=== PATIENT | male | born 1935 | race Caucasian/White ===

== ENCOUNTER 2017-03-28 20:57 | Emergency (ER) | payer OTHER ==
[~2017-03-28] VITALS: Ht 172.7 cm; Wt 77.0 kg
[~2017-03-28 20:57] MED LIST: ASPEC81 PO; B-COTAB18 PO; CHOL1CAP57 PO; CHONCAP PO; COENCAP8 PEG; FLUT0.15 NAE; HYDR12.55 PO; LISI-729 PO; LORA10TA5 PO; LPR25 PO; MELA3CAP PO; OMEG10002 PO; OMEP20CA9 PO; ROSU20TA PO; TRIA0.1C20 TOP; WARF5TAB90 PO
[2017-03-28 21:03] VITALS: TEMP 36.5; Ht 172.7 cm; Wt 77.0 kg
[2017-03-28] MEDS ORDERED: REDCAP2 PO (21:13)
[2017-03-28] MEDS ORDERED: SILVER NITR/POTASSIUM NITRATE 10 APPLICATOR PACK ONE (21:48)
[2017-03-28] MEDS ORDERED: OXYMETAZOLINE HCL 0.05% NA SPR 15 ML BTL ONE ×2 (21:48)
[2017-03-28 22:02] LABS: BASO % 0.4 %; BASO ABS # 0.03 K/uL (0-0.2); COMPLETE YES; EOS % 3.2 %; HEMATOCRIT 39.6 % (42-52); IG% 0.3 %; LYMPH % 7.9 %; LYMPH ABS # 0.57 K/uL (1.2-3.4); MEAN CELL VOLUME 86.3 fL (80-100); MEAN CORPUSCULAR HEMOGLOBIN 28.5 pg (25-34); MEAN CORPUSCULAR HGB CONC 33.1 g/dl (32-36); MEAN PLATELET VOLUME 9.9 fL (7.4-10.4); MONO % 15.4 %; NEUT % 72.8 %; PLATELET COUNT 194 K/uL (130-400); RED BLOOD COUNT 4.59 M/uL (4.7-6.1)
[2017-03-28 22:15] LABS: INR 2.4 (0.9-1.1); PARTIAL THROMBOPLASTIN RATIO 1.3; PROTHROMBIN TIME (PATIENT) 26.2 SECONDS (9.0-12.0)
[2017-03-28 22:20] LABS: CALCIUM 9.2 mg/dl (8.5-10.1); CREATININE 0.62 mg/dl (0.60-1.40); POTASSIUM 3.9 mmol/L (3.5-5.1)
[2017-03-28] MEDS ORDERED: ASPI81TA28 PO (22:33)
[2017-03-28] MEDS ORDERED: METO25TA56 PO (22:33)
[2017-03-28] MEDS ORDERED: TRMCR130WC TOP (22:33)
[2017-03-28] MEDS ORDERED: COEN200C PO (22:44)
[2017-03-28] MEDS ORDERED: LISI-461 PO (22:44)
[2017-03-28] MEDS ORDERED: WARF7.5T PO (22:44)
[2017-03-28] MEDS ORDERED: ASCO10003 PO (22:44)
[2017-03-28] MEDS ORDERED: FLUT0.15 NAE (22:44)
[2017-03-28 23:50] VITALS: BP 144/76; PULSE 84; O2SAT 98
--- NOTE | 2017-03-29 01:59 | EMERGENCY ROOM VISIT NOTE ---
History Report prepared by Bryson: Vanesa Burgess Under the Supervision of: Dr. Christiano Bennett M.D. First contact with patient: 21:19 Chief Complaint: NOSE BLEED (MINOR) Stated Complaint: BLOODY NOSE History of Present Illness The patient is an 81 year old male who presents to the Emergency Room with complaints of an episode of a severe nose bleed starting three hours ago. The patient states that he has been having nosebleeds recently. He states that he went to his PCP this morning for the nosebleed. He states it stopped before he got there and they told him how to handle it if it happened again. He reports that he followed their instructions this evening with no relief. The patient notes he is on Coumadin for an artificial valve and was at a 3.0 9 days ago. The patient denies chest pain and shortness of breath. Source of History: patient Onset: three hours ago Position: nose Symptom Intensity: severe Quality: other (bleeding) Timing: other (episode) Associated Symptoms: No chest pain, No SOB Review of Systems See HPI for pertinent positives and negatives. A total of ten systems were reviewed and were otherwise negative. 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 Family History No pertinent family history Social History Smoking Status: Never Smoker Marital Status: Housing Status: lives with significant other Occupation Status: retired Current/Historical Medications Scheduled Ascorbic Acid (Vitamin C), 1 TAB PO DAILY Aspirin (Aspirin Ec), 81 MG PO DAILY Coenzyme Q10 (Ubidecarenone) (Coenzyme Q-10), 200 MG PO DAILY Fluticasone Propionate (Nasal) (Flonase Allergy Relief), 2 SPRAYS ISAIAH DAILY Lisinopril (Zestril), 10 MG PO DAILY Metoprolol Tartrate (Lopressor) (Lopressor), 25 MG PO DAILY Red Yeast Rice Extract (Red Yeast Rice), 600 MG PO Q2D Rosuvastatin Calcium (Crestor), 20 MG PO DAILY Warfarin Sodium (Coumadin), 5 MG PO 6XWK Warfarin Sodium (Coumadin), 7.5 MG PO MON Scheduled PRN Omeprazole (Prilosec), 20 MG PO DAILY PRN for Indigestion Triamcinolone Acet (Aristocort 0.1%), 1 APPLN TOP BID PRN for rash Allergies Coded Allergies: No Known Allergies (Unverified , 12/06/14) Physical Exam Vital Signs Date Time Temp Pulse Resp B/P (MAP) Pulse Ox O2 Delivery O2 Flow Rate FiO2 03/28/17 23:50 84 20 144/76 98 03/28/17 22:39 68 20 152/92 98 Room Air 03/28/17 21:03 36.5 83 20 177/92 96 Room Air Physical Exam GENERAL: Awake, alert, well-appearing, in no distress HENT: Normocephalic, atraumatic. Oropharynx unremarkable. Anterior right nasal septum. Visible blood vessel with active bleeding. EYES: Normal conjunctiva. Sclera non-icteric. NECK: Supple. No nuchal rigidity. FROM. No JVD. RESPIRATORY: Clear to auscultation. CARDIAC: Regular rate, normal rhythm. Extremities warm and well perfused. Pulses equal. ABDOMEN: Soft, non-distended. No tenderness to palpation. No rebound or guarding. No masses. RECTAL: Deferred. MUSCULOSKELETAL: Chest examination reveals no tenderness. The back is symmetrical on inspection without obvious abnormality. There is no CVA tenderness to palpation. No joint edema. LOWER EXTREMITIES: Calves are equal size bilaterally and non-tender. No edema. No discoloration. NEURO: Normal sensorium. No sensory or motor deficits noted. SKIN: No rash or jaundice noted. Medical Decision & Procedures Laboratory Results 03/28/17 21:40 Red Blood Count 4.59, Mean Corpuscular Volume 86.3, Mean Corpuscular Hemoglobin 28.5, Mean Corpuscular Hemoglobin Concent 33.1, Mean Platelet Volume 9.9, Neutrophils (%) (Auto) 72.8, Lymphocytes (%) (Auto) 7.9, Monocytes (%) (Auto) 15.4, Eosinophils (%) (Auto) 3.2, Basophils (%) (Auto) 0.4, Neutrophils # (Auto ) 5.24, Lymphocytes # (Auto) 0.57, Monocytes # (Auto) 1.11, Eosinophils # (Auto ) 0.23, Basophils # (Auto) 0.03 03/28/17 21:40 Test 03/28/17 21:40 White Blood Count 7.20 K/uL (4.8-10.8) Red Blood Count 4.59 M/uL (4.7-6.1) Hemoglobin 13.1 g/dL (14.0-18.0) Hematocrit 39.6 % (42-52) Mean Corpuscular Volume 86.3 fL (80-100) Mean Corpuscular Hemoglobin 28.5 pg (25-34) Mean Corpuscular Hemoglobin Concent 33.1 g/dl (32-36) Platelet Count 194 K/uL (130-400) Mean Platelet Volume 9.9 fL (7.4-10.4) Neutrophils (%) (Auto) 72.8 % Lymphocytes (%) (Auto) 7.9 % Monocytes (%) (Auto) 15.4 % Eosinophils (%) (Auto) 3.2 % Basophils (%) (Auto) 0.4 % Neutrophils # (Auto) 5.24 K/uL (1.4-6.5) Lymphocytes # (Auto) 0.57 K/uL (1.2-3.4) Monocytes # (Auto) 1.11 K/uL (0.11-0.59) Eosinophils # (Auto) 0.23 K/uL (0-0.5) Basophils # (Auto) 0.03 K/uL (0-0.2) RDW Standard Deviation 42.8 fL (36.4-46.3) RDW Coefficient of Variation 13.7 % (11.5-14.5) Immature Granulocyte % (Auto) 0.3 % Immature Granulocyte # (Auto) 0.02 K/uL (0.00-0.02) Prothrombin Time 26.2 SECONDS (9.0-12.0) Prothromb Time International Ratio 2.4 (0.9-1.1) Activated Partial Thromboplast Time 32.7 SECONDS (21.0-31.0) Partial Thromboplastin Ratio 1.3 Anion Gap 7.0 mmol/L (3-11) Est Creatinine Clear Calc Drug Dose 91.9 ml/min Estimated GFR () 108.6 Estimated GFR (Non- 93.7 BUN/Creatinine Ratio 21.0 (10-20) Calcium Level 9.2 mg/dl (8.5-10.1) Laboratory results reviewed by ne Procedure Anterior Nasal Cauterization Suction was used to clear out the right nasal passage. The bleeding clot was identified and Afrin was placed. Silver Nitrate was used to cauterize the vessel. Surgicel was applied. Patient did well. ED Course 2140: The patient was evaluated in room C8. A complete history and physical exam was performed. 2147: Ordered Afrin 0.05% Nasal [place] 2 sprays .ROUTE, Silver Nitrate/ Potassium Nitrate 1 pkt .ROUTE. 2305: I reevaluated the patient. Discussed results and discharge instructions: He verbalized understanding and agreement. The patient is ready for discharge. Medical Decision Prior records/ancillary studies reviewed. Triage Nursing notes reviewed and agree them. Additional history obtained from family. The patient's history was concerning for epistaxis. Differential diagnosis: Etiologies such as spontaneous bleed, coagulopathy, traumatic injury, fracture, septal hematoma, posterior epistaxis as well as other pathologies were entertained. Physical examination findings: As above. Anterior bleeding source. ER treatment provided: Direct pressure and then nasal suctioning. Intranasal Afrin Silver nitrate cautery Fribrillar hemostatic cellulose applied On reassessment the patient felt better. No additional bleeding. Diagnostics interpreted by me: The labs revealed a mild anemia on CBC. INR 2.4. Chemical panel unremarkable. By the evaluation outlined above emergent etiologies such as coagulopathy, traumatic injury, fracture, septal hematoma, posterior epistaxis, as well as others were deemed relatively unlikely. The patient was informed about the findings as listed above. All questions were answered and he was very pleased with the treatment. Return instructions were outlined and the patient was discharged in stable condition. Outpatient prescription management: No change Referral: The patient was referred to ENT and PCP. Medication Reconcilliation Current Medication List: was personally reviewed by me Blood Pressure Screening Patient's blood pressure: Elevated blood pressure Blood pressure disposition: Elevated BP felt to be situational Impression Primary Impression: Anterior epistaxis Scribe Attestation The scribe's documentation has been prepared under my direction and personally reviewed by me in its entirety. I confirm that the note above accurately reflects all work, treatment, procedures, and medical decision making performed by me. Departure Information Dispostion Home / Self-Care Referrals Anthony Holbrook M.D. (PCP) Forms HOME CARE DOCUMENTATION FORM, IMPORTANT VISIT INFORMATION, WORK / SCHOOL INSTRUCTIONS Patient Instructions My [facility] Additional Instructions EPISTAXIS (NOSE BLEED) INSTRUCTIONS: Avoid scratching, rubbing, picking, or blowing your nose. The tumbler drier operator your nasal passages the more likely they are to bleed. The following two products are available [id number] at most drug stores/pharmacies. Dixie [place] nasal spray or similar generic saline spray to keep the nose moist 3 to 4 times a day. Apply Evans gel 2-3 times daily to the nostrils to keep them moist. If bleeding recurs apply 2 sprays of Afrin and direct pressure for an uninterrupted 20 minutes with the nasal clip. On and off pressure is much less effective because it will disturb the clots that are forming. If the bleeding is still a problem after 20 minutes or is so heavy despite the pressure return to the emergency department. Continue current medications. For ENT([id number]) follow up call this week the [facility] ENT office at [phone] for an appointment. Tell the multi needle machine operator you were referred from the ER. Follow-up with your primary care physician in 2 to 3 days for a recheck of your current condition.
== END 2017-03-28 23:51 | disposition home or self-care (01) ==
LOC: C.EDB 20:58 → C.EDC 23:51
DX: R04.0 Epistaxis (principal); I10 Essential (primary) hypertension; Z95.1 Presence of aortocoronary bypass graft; Z79.01 Long term (current) use of anticoagulants; Z79.82 Long term (current) use of aspirin; Z79.899 Other long term (current) drug therapy

== ENCOUNTER 2017-10-13 12:48 | Observation (INO) | payer OTHER ==
[~2017-10-13] VITALS: Ht 175.3 cm; Wt 73.8 kg
[~2017-10-13 12:48] MED LIST changes: +ASCO10003 PO; -ASPEC81 PO; +ASPI81TA28 PO; -B-COTAB18 PO; -CHOL1CAP57 PO; -CHONCAP PO; +COEN200C PO; -COENCAP8 PEG; -HYDR12.55 PO; +LISI-461 PO; -LISI-729 PO; -LORA10TA5 PO; -LPR25 PO; -MELA3CAP PO; +METO25TA56 PO; -OMEG10002 PO; +REDCAP2 PO; -TRIA0.1C20 TOP; +TRMCR130WC TOP; +WARF7.5T PO
[2017-10-13] MEDS ORDERED: OPTIRAY 320 IV PRN (13:45)
--- NOTE | 2017-10-13 13:51 | EMERGENCY ROOM VISIT NOTE ---
ED Visit Note First contact with patient: 13:14 CHIEF COMPLAINT: Right rib pain, head injury, mechanical fall HISTORY OF PRESENT ILLNESS: This 82-year-old male patient presents to the emergency department, ambulatory, complaining of pain in the right ribs after suffering a mechanical fall at approximately 5:00 last evening. The patient states he was walking in his kitchen from the stove to the refrigerator when his foot got caught. He states he fell and believes he hit the right side of his ribs on the door handle of the refrigerator. He does admit to hitting his head. He states he was having difficulty sleeping last night due to the pain, and because he is on Coumadin, he wanted to come and be evaluated. There is increased pain with deep breathing or coughing. Attempting to sit up from a lying position is painful. Denies shortness of breath or coughing up blood. The patient rates the pain as sharp and 7/10. The patient has taken Tylenol with mild relief of the pain. No previous fractures to the ribs. The patient denies any other injury. The patient denies any abdominal pain, nausea, or vomiting. The patient denies any loss of consciousness, nausea, vomiting, neck pain, confusion, dizziness, visual disturbances, or other significant head injury symptoms. REVIEW OF SYSTEMS: A 6 system review of systems was completed with positives and pertinent negatives listed in the HPI. ALLERGIES: None PMH: Mechanical aortic valve, rheumatic fever, neuropathy SOCIAL HISTORY: The patient lives locally with family. He denies drug, alcohol , tobacco use. PHYSICAL EXAM: VITALS: Vitals are noted on the nurse's note and reviewed by myself. Vital signs stable. GENERAL: This is an 82-year-old white male, in no acute distress, nondiaphoretic , well-developed well-nourished. NEURO: The patient is alert, oriented to person place and time, and coherent. Normal mini mental status exam. HEAD: Normocephalic, atraumatic. Mild tenderness on the superior/anterior aspect of the scalp, but no obvious bruising or ecchymosis. EYES: Pupils are equal round and reactive to light and accommodation. EOMs are full and optic discs and fundi are normal. There is no swelling or discoloration of the tissue surrounding the eyes. EARS: External auditory canals clear without blood. NOSE: Patent without tenderness. No septal hematoma. FACE: No facial tenderness. NECK: Supple. There is no cervical spine tenderness. The patient does not have tenderness with movement of the neck. LUNGS: Clear to auscultation and breath sounds equal, no wheezes, rales, or rhonchi. HEART: Heart sounds are regular without murmurs, ectopy, gallop, or rub. CHEST: The right chest wall is tender to palpation over the 6-10 ribs but there is no fracture crepitus and no ecchymosis. There is no tachypnea or dyspnea. ABDOMEN: Positive bowel sounds x 4. Normal tympanic percussion. There is tenderness of the right upper quadrant on palpation. There is also positive CVA tenderness on the right. Soft, without masses or organomegaly. No guarding or rebound tenderness. NEURO: Patient was alert and oriented to person place and time. CT OF THE HEAD WITHOUT CONTRAST CLINICAL HISTORY: trauma, head injury, on coumadin COMPARISON STUDY: Head CT and MRI of the brain December 06, 2014. TECHNIQUE: Helical axial images of the head were obtained without IV contrast. Automated exposure control was utilized for the study. A dose lowering technique was utilized adhering to the principles of ALARA. FINDINGS: No acute intracranial hemorrhage, midline shift or mass effect is present. Ventricular system is stable. Basilar cisterns are patent. There are no extra-axial collections. Extensive white matter hypodensity suggests small vessel disease. 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 There is an age indeterminate 1.8 cm infarct within left cerebellar hemisphere. There are no calvarial fractures. Left sphenoid sinus air-fluid levels noted. IMPRESSION: 1. No acute intracranial hemorrhage. 2. Age indeterminate 1.8 cm infarct within left cerebellar hemisphere. 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 3. No calvarial fracture. Electronically signed by: Lucas Li M.D. 10/13/2017 3:01 PM Dictated Date/Time: 10/13/2017 2:[address] OF THE CHEST WITH IV CONTRAST CLINICAL HISTORY: trauma, right chest wall pain, increased pain with breathing COMPARISON STUDY: Chest radiograph December 06, 2014. TECHNIQUE: Following IV administration of 116 mL of Optiray-320, helical axial images of the chest were obtained. Sagittal and coronal reconstructions were viewed as well as maximal intensity projections on an independent 3-D workstation. A dose lowering technique was utilized adhering to the principles of ALARA. FINDINGS: There is no evidence for traumatic injury to the thoracic aorta. There is moderate dilatation of the ascending aorta that measures 4.7 cm at the level the main pulmonary artery. There is extensive coronary artery calcification. There is no pericardial effusion. There are no enlarged thoracic lymph nodes. There is a tiny hiatal hernia. A small right hemothorax is noted with a trace right pneumothorax. There is an acute moderately displaced posterior right 10th rib fracture with several locules of adjacent chest wall gas. There is also a mildly displaced fracture of the posterior right 10th rib. There are nondisplaced fractures of the posterior and posterior lateral right ninth ribs as well as the posterior 11th and 12th ribs. No acute thoracic spine fracture is identified. There is no left pneumothorax. The patient is status post median sternotomy. The abdomen and pelvis will be reported separately. Groundglass opacities reflect atelectasis. IMPRESSION: 1. Small right hemothorax and trace right pneumothorax. Moderately displaced posterolateral right 10th rib fracture with additional nondisplaced fractures of the right 9th, 10th and 11th ribs, as described above. 2. No evidence of traumatic injury to the thoracic aorta. 3. Moderate dilatation of the ascending aorta, measuring 4.7 cm. No dissection. 4. Cholelithiasis. Electronically signed by: Lucas Li M.D. 10/13/2017 3:11 PM Dictated Date/Time: 10/13/2017 3:[address] OF THE ABDOMEN AND PELVIS WITH CONTRAST CLINICAL HISTORY: trauma, RUQ pain/R flank pain COMPARISON STUDY: None. TECHNIQUE: Following IV administration of mL of Optiray-320, axial images of the abdomen and pelvis were obtained from the lung bases to the proximal femurs. Images were reviewed in the axial, sagittal, and coronal planes. IV contrast was administered without complication. A dose lowering technique was utilized adhering to the principles of ALARA. CT DOSE: 1662.52 mGy.cm FINDINGS: The chest will be reported separate. There is a small right pleural effusion which favors a hemothorax. Right-sided rib fractures are better depicted on the chest CT. Please see that report for description. There is no evidence for traumatic injury to the liver, spleen, adrenal glands, kidneys or pancreas. There are gallstones within the gallbladder. 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 However wall thickness of small and large bowel are normal. There is no hemoperitoneum or pneumoperitoneum. There is sigmoid diverticulosis without evidence for acute diverticulitis. No acute lumbar spine or pelvic fracture is identified. IMPRESSION: 1. No acute traumatic findings within the abdomen or pelvis. 2. Multiple right-sided rib fractures, a small right hemothorax and trace right pneumothorax which are better depicted on the chest CT. Please see that report for further description. 3. Cholelithiasis. 4. 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 Electronically signed by: Lcuas Li M.D. 10/13/2017 3:19 PM Dictated Date/Time: 10/13/2017 3:11 PM EMERGENCY DEPARTMENT COURSE: The patient was seen and evaluated as above. He has been stable throughout his visit to the emergency department here today with no hypoxia or tachycardia noted on vital signs. The patient denies any dyspnea, and appears very comfortable. CT scans performed due to history and patient on coumadin. Labs drawn and reviewed. CT scan reviewed by myself and radiologist as above. INR is subtheraputic for mechanical valve at 1.7. Pt. is mildly anemic with Hgb 12.8 and Hct 38.2. I contacted Dr. Garcia regarding the patient condition. He was willing to see the patient outpatient or inpatient if the medicine team is willing to admit. The patient was seen by Dr. Veliz. We did agree that admitting the patient at least overnight would be reasonable given the patient's age, medications, and risk factors. The patient [place] [facility] [place] and Dr. Garcia (thoracic surgery) will consult in the morning. The patient is agreeable to the plan of care and all questions answered to his and his son's satisfaction. Please see hospitalist dictation for ongoing management and care. I did discuss the finding of cystic pancreatic body lesion noted on CT scan with the patient at bedside. I did encourage him to follow-up outpatient with his primary care provider for further workup and management of this finding. I attest that I have personally reviewed the patient's current medication list. Patient was found to have normal blood pressure on screening and does not require follow-up. Differential diagnosis includes contusion, rib fracture, pulmonary contusion, hemothorax, pneumothorax, pleural effusion, flail chest, pneumonia, closed head injury, ICH, skull fracture, malignancy, and others DIAGNOSIS: Multiple rib fractures, hemothorax, pneumothorax Problem List Medical Problems: (1) HTN (hypertension) Status: Chronic Surgical Problems: (1) Aortic valve replaced Status: Chronic (2) Mitral valve replaced Status: Chronic (3) S/P CABG x 5 Status: Resolved Current/Historical Medications Scheduled Ascorbic Acid (Vitamin C), 1 TAB PO DAILY Aspirin (Aspirin Ec), 81 MG PO DAILY Coenzyme Q10 (Ubidecarenone) (Coenzyme Q-10), 200 MG PO DAILY Fexofenadine Hcl (Jackie Allergy), 1 TAB PO DAILY Lisinopril (Zestril), 10 MG PO DAILY Metoprolol Tartrate (Lopressor) (Lopressor), 25 MG PO DAILY Red Yeast Rice Extract (Red Yeast Rice), 600 MG PO Q2D Rosuvastatin Calcium (Crestor), 20 MG PO DAILY Warfarin Sodium (Coumadin), 5 MG PO 6XWK Warfarin Sodium (Coumadin), 7.5 MG PO MON Scheduled PRN Fluticasone Propionate (Nasal) (Flonase Allergy Relief), 2 SPRAYS ISAIAH DAILY PRN for Allergic Reaction Omeprazole (Prilosec), 20 MG PO DAILY PRN for Indigestion Allergies Coded Allergies: No Known Allergies (Unverified , 10/13/17) Vital Signs Date Time Temp Pulse Resp B/P (MAP) Pulse Ox O2 Delivery O2 Flow Rate FiO2 10/13/17 16:34 97 Room Air 10/13/17 15:01 78 16 97 Room Air 10/13/17 13:01 36.2 56 20 145/87 97 Room Air Laboratory Results 10/13/17 13:45 10/13/17 13:45 Test 10/13/17 13:45 10/13/17 16:49 Red Blood Count 4.51 M/uL (4.7-6.1) Mean Corpuscular Volume 84.7 fL (80-100) Mean Corpuscular Hemoglobin 28.4 pg (25-34) Mean Corpuscular Hemoglobin Concent 33.5 g/dl (32-36) RDW Standard Deviation 42.8 fL (36.4-46.3) RDW Coefficient of Variation 13.9 % (11.5-14.5) Mean Platelet Volume 9.3 fL (7.4-10.4) Prothrombin Time 17.3 SECONDS (9.0-12.0) Prothromb Time International Ratio 1.7 (0.9-1.1) Activated Partial Thromboplast Time 29.5 SECONDS (21.0-31.0) Partial Thromboplastin Ratio 1.1 Anion Gap 5.0 mmol/L (3-11) Est Creatinine Clear Calc Drug Dose 81.6 ml/min Estimated GFR () 102.0 Estimated GFR (Non- 88.0 BUN/Creatinine Ratio 21.2 (10-20) Calcium Level 9.0 mg/dl (8.5-10.1) Departure Information Impression Primary Impression: Multiple fractures of rib involving four or more ribs Additional Impressions: Hemothorax Pneumothorax Pancreatic abnormality Fall Dispostion Admitted as an inpatient Condition GOOD Referrals Anthony Holbrook M.D. (PCP) Patient Instructions My [facility] Problem Qualifiers Additional Impressions: Pneumothorax Pneumothorax type: traumatic Encounter type: initial encounter Qualified Codes: S27.0XXA - Traumatic pneumothorax, initial encounter Fall Encounter type: initial encounter Qualified Codes: W19.XXXA - Unspecified fall, initial encounter
[2017-10-13 14:01] LABS: HEMATOCRIT 38.2 % (42-52); HEMOGLOBIN 12.8 g/dL (14.0-18.0); MEAN CELL VOLUME 84.7 fL (80-100); MEAN CORPUSCULAR HEMOGLOBIN 28.4 pg (25-34); MEAN CORPUSCULAR HGB CONC 33.5 g/dl (32-36); MEAN PLATELET VOLUME 9.3 fL (7.4-10.4); PLATELET COUNT 170 K/uL (130-400); RED CELL DISTRIBUTION WIDTH CV 13.9 % (11.5-14.5); RED CELL DISTRIBUTION WIDTH SD 42.8 fL (36.4-46.3); WHITE BLOOD COUNT 10.66 K/uL (4.8-10.8)
[2017-10-13 14:21] LABS: CREATININE 0.71 mg/dl (0.60-1.40); INR 1.7 (0.9-1.1); POTASSIUM 4.2 mmol/L (3.5-5.1); PTT PATIENT 29.5 SECONDS (21.0-31.0)
[2017-10-13] MEDS ORDERED: FEXO1TAB49 PO (14:32)
--- NOTE | 2017-10-13 15:02 | DIAGNOSTIC IMAGING REPORT ---
CT OF THE HEAD WITHOUT CONTRAST CLINICAL HISTORY: trauma, head injury, on coumadin COMPARISON STUDY: Head CT and MRI of the brain December 06, 2014. TECHNIQUE: Helical axial images of the head were obtained without IV contrast. Automated exposure control was utilized for the study. A dose lowering technique was utilized adhering to the principles of ALARA. FINDINGS: No acute intracranial hemorrhage, midline shift or mass effect is present. Ventricular system is stable. Basilar cisterns are patent. There are no extra-axial collections. Extensive white matter hypodensity suggests small vessel disease. 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 There is an age indeterminate 1.8 cm infarct within left cerebellar hemisphere. There are no calvarial fractures. Left sphenoid sinus air-fluid levels noted. IMPRESSION: 1. No acute intracranial hemorrhage. 2. Age indeterminate 1.8 cm infarct within left cerebellar hemisphere. 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 3. No calvarial fracture. Electronically signed by: Lucas Li M.D. 10/13/2017 3:01 PM Dictated Date/Time: 10/13/2017 2:56 PM
--- NOTE | 2017-10-13 15:12 | DIAGNOSTIC IMAGING REPORT ---
CT OF THE CHEST WITH IV CONTRAST CLINICAL HISTORY: trauma, right chest wall pain, increased pain with breathing COMPARISON STUDY: Chest radiograph December 06, 2014. TECHNIQUE: Following IV administration of 116 mL of Optiray-320, helical axial images of the chest were obtained. Sagittal and coronal reconstructions were viewed as well as maximal intensity projections on an independent 3-D workstation. A dose lowering technique was utilized adhering to the principles of ALARA. FINDINGS: There is no evidence for traumatic injury to the thoracic aorta. There is moderate dilatation of the ascending aorta that measures 4.7 cm at the level the main pulmonary artery. There is extensive coronary artery calcification. There is no pericardial effusion. There are no enlarged thoracic lymph nodes. There is a tiny hiatal hernia. A small right hemothorax is noted with a trace right pneumothorax. There is an acute moderately displaced posterior right 10th rib fracture with several locules of adjacent chest wall gas. There is also a mildly displaced fracture of the posterior right 10th rib. There are nondisplaced fractures of the posterior and posterior lateral right ninth ribs as well as the posterior 11th and 12th ribs. No acute thoracic spine fracture is identified. There is no left pneumothorax. The patient is status post median sternotomy. The abdomen and pelvis will be reported separately. Groundglass opacities reflect atelectasis. IMPRESSION: 1. Small right hemothorax and trace right pneumothorax. Moderately displaced posterolateral right 10th rib fracture with additional nondisplaced fractures of the right 9th, 10th and 11th ribs, as described above. 2. No evidence of traumatic injury to the thoracic aorta. 3. Moderate dilatation of the ascending aorta, measuring 4.7 cm. No dissection. 4. Cholelithiasis. Electronically signed by: Lucas Li M.D. 10/13/2017 3:11 PM Dictated Date/Time: 10/13/2017 3:01 PM
--- NOTE | 2017-10-13 15:21 | DIAGNOSTIC IMAGING REPORT ---
CT OF THE ABDOMEN AND PELVIS WITH CONTRAST CLINICAL HISTORY: trauma, RUQ pain/R flank pain COMPARISON STUDY: None. TECHNIQUE: Following IV administration of mL of Optiray-320, axial images of the abdomen and pelvis were obtained from the lung bases to the proximal femurs. Images were reviewed in the axial, sagittal, and coronal planes. IV contrast was administered without complication. A dose lowering technique was utilized adhering to the principles of ALARA. CT DOSE: 1662.52 mGy.cm FINDINGS: The chest will be reported separate. There is a small right pleural effusion which favors a hemothorax. Right-sided rib fractures are better depicted on the chest CT. Please see that report for description. There is no evidence for traumatic injury to the liver, spleen, adrenal glands, kidneys or pancreas. There are gallstones within the gallbladder. 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 However wall thickness of small and large bowel are normal. There is no hemoperitoneum or pneumoperitoneum. There is sigmoid diverticulosis without evidence for acute diverticulitis. No acute lumbar spine or pelvic fracture is identified. IMPRESSION: 1. No acute traumatic findings within the abdomen or pelvis. 2. Multiple right-sided rib fractures, a small right hemothorax and trace right pneumothorax which are better depicted on the chest CT. Please see that report for further description. 3. Cholelithiasis. 4. 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 Electronically signed by: Lucas Li M.D. 10/13/2017 3:19 PM Dictated Date/Time: 10/13/2017 3:11 PM
--- NOTE | 2017-10-13 16:14 | EMERGENCY ROOM VISIT NOTE ---
ED Visit Note First contact with patient: 13:14 I have personally evaluated this patient examined her and reviewed the pertinent labs and data. I have discussed the case with Rosi Sauceda, the physician production administrative assistant and agree with the plan. Please refer to the PA note. This patient comes in after having a mechanical fall yesterday CAT scans reveal ever broken ribs on the right he has a small hemo- and trace pneumothorax. On my exam, he appears in no distress and not ill-appearing. He has stable vital signs. His lungs are clear bilaterally and has no significant tenderness with palpation of his ribs. He has a normal neurologic exam. He looks well. He is on Coumadin for mechanical heart valve his INR is 1.7. Given the fact he has multiple rib fractures and is on Coumadin. I do think he needs to be observed. We have discussed the case with Dr. Angel who can see him tomorrow and Dr. Dennis
--- NOTE | 2017-10-13 16:29 | DIAGNOSTIC IMAGING REPORT ---
CHEST ONE VIEW PORTABLE CLINICAL HISTORY: rib fracture COMPARISON STUDY: Chest CT December 11, 2017 at 2:51 PM. FINDINGS: There are median sternotomy wires and a prosthetic aortic valve. 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 Trace right apical pneumothorax is noted. The right-sided rib fractures shown on recent chest CT are not visualized on this exam due to technique. The right pleural fluid is also not visualized on this exam, likely due to technique. There is moderate cardiomegaly. There is no evidence for pulmonary edema. IMPRESSION: 1. Trace right apical pneumothorax which is similar to recent chest CT. 2. The right rib fractures and right pleural fluid suggestive of a hemothorax shown on recent chest CT are not visualized on this exam due to technique. Electronically signed by: Lucas Li M.D. 10/13/2017 4:28 PM Dictated Date/Time: 10/13/2017 4:26 PM
[2017-10-13 16:34] VITALS: O2SAT 97; Ht 175.3 cm; Wt 73.8 kg
[2017-10-13] MEDS ORDERED: POLYETHYLENE (MIRALAX) 17 GM PACK PO PRN (16:45)
[2017-10-13] MEDS ORDERED: ONDANSETRON INJ 2 MG/ML 2 ML VIAL IV PRN (16:45)
[2017-10-13] MEDS ORDERED: FLUTICASONE PROPIONATE NA SPR 16 GM BTL NAE PRN (16:45)
[2017-10-13] MEDS ORDERED: MAGNESIUM HYDROXIDE SUSP 30 ML UDC PO PRN (16:45)
[2017-10-13] MEDS ORDERED: ALUMINUM/MAGNESIUM/SIMETH (MAALOX MAX) 30 ML UDC PO PRN (16:45)
[2017-10-13] MEDS ORDERED: NITROGLYCERIN 0.4 MG SL PER TAB CHARGE SL PRN (16:45)
--- NOTE | 2017-10-13 17:16 | History and Physical ---
History & Physical Date & Time of Service: Oct 13, 2017 at 17:16 Chief Complaint: Pain In Lung Area,Ribs-From A Fall Primary Care Physician: Anthony Holbrook M.D. History of Present Illness Source: patient, hospital records (ER physician ) is 82-year-old male with past medical hx of S/p mechanical Aortic valve replacement in 2002 for rheumatic heart disease on chronic anticoagulation with coumadin , HTN , hyperlipidemia , Afib presented to ER after sustaining a fall yesterday evening pt was in his kitchen was walking to the refrigerator , tripped and fell in his right side , hitting rit side of his chest to the refrigerator handle had excruciating pain on rt side of chest worse with movement and taking deep breath denies of episodes of dizzy spell, chest heaviness, palpitation prior to fall in the ER imaging shows multiple rib Fx on rt side Family History No pertinent family history Social History Smoking Status: Former Smoker Marital Status: Housing status: lives with family Occupational Status: retired Multi-Drug Resistant Organisms History of MDRO: No Allergies Coded Allergies: No Known Allergies (Unverified , 10/13/17) Home Medications Scheduled Ascorbic Acid (Vitamin C), 1 TAB PO DAILY Aspirin (Aspirin Ec), 81 MG PO DAILY Coenzyme Q10 (Ubidecarenone) (Coenzyme Q-10), 200 MG PO DAILY Fexofenadine Hcl (Jackie Allergy), 1 TAB PO DAILY Lisinopril (Zestril), 10 MG PO DAILY Metoprolol Tartrate (Lopressor) (Lopressor), 25 MG PO DAILY Red Yeast Rice Extract (Red Yeast Rice), 600 MG PO Q2D Rosuvastatin Calcium (Crestor), 20 MG PO DAILY Warfarin Sodium (Coumadin), 5 MG PO 6XWK Warfarin Sodium (Coumadin), 7.5 MG PO MON Scheduled PRN Fluticasone Propionate (Nasal) (Flonase Allergy Relief), 2 SPRAYS ISAIAH DAILY PRN for Allergic Reaction Omeprazole (Prilosec), 20 MG PO DAILY PRN for Indigestion Physical Exam Vital Signs Date Time Temp Pulse Resp B/P (MAP) Pulse Ox O2 Delivery O2 Flow Rate FiO2 10/13/17 16:34 97 Room Air 10/13/17 15:01 78 16 97 Room Air 2/25/18 13:01 36.2 56 20 145/87 97 Room Air Diagnostics Laboratory Results Results Past 24 Hours Test 10/13/17 13:45 10/13/17 16:49 Range/Units White Blood Count 10.66 4.8-10.8 K/uL Red Blood Count 4.51 4.7-6.1 M/uL Hemoglobin 12.8 14.0-18.0 g/dL Hematocrit 38.2 42-52 % Mean Corpuscular Volume 84.7 80-100 fL Mean Corpuscular Hemoglobin 28.4 25-34 pg Mean Corpuscular Hemoglobin Concent 33.5 32-36 g/dl RDW Standard Deviation 42.8 36.4-46.3 fL RDW Coefficient of Variation 13.9 11.5-14.5 % Platelet Count 170 130-400 K/uL Mean Platelet Volume 9.3 7.4-10.4 fL Prothrombin Time 17.3 9.0-12.0 SECONDS Prothromb Time International Ratio 1.7 0.9-1.1 Activated Partial Thromboplast Time 29.5 21.0-31.0 SECONDS Partial Thromboplastin Ratio 1.1 Sodium Level 133 136-145 mmol/L Potassium Level 4.2 3.5-5.1 mmol/L Chloride Level 99 98-107 mmol/L Carbon Dioxide Level 29 21-32 mmol/L Anion Gap 5.0 3-11 mmol/L Blood Urea Nitrogen 15 7-18 mg/dl Creatinine 0.71 0.60-1.40 mg/dl Est Creatinine Clear Calc Drug Dose 81.6 ml/min Estimated GFR () 102.0 Estimated GFR (Non- 88.0 BUN/Creatinine Ratio 21.2 10-20 Random Glucose 102 70-99 mg/dl Calcium Level 9.0 8.5-10.1 mg/dl Diagnostic Radiology CT CHEST WITH CONTRAST : IMPRESSION: 1. Small right hemothorax and trace right pneumothorax. Moderately displaced posterolateral right 10th rib fracture with additional nondisplaced fractures of the right 9th, 10th and 11th ribs, as described above. 2. No evidence of traumatic injury to the thoracic aorta. 3. Moderate dilatation of the ascending aorta, measuring 4.7 cm. No dissection. 4. Cholelithiasis. CT ABDOMEN/PELVIS WITH CONTRAST : IMPRESSION: 1. No acute traumatic findings within the abdomen or pelvis. 2. Multiple right-sided rib fractures, a small right hemothorax and trace right pneumothorax which are better depicted on the chest CT. Please see that report for further description. 3. Cholelithiasis. 4. 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 CT HEAD WITH OUT CONTRAST : IMPRESSION: 1. No acute intracranial hemorrhage. 2. Age indeterminate 1.8 cm infarct within left cerebellar hemisphere. 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 3. No calvarial fracture. CHEST XRAY : IMPRESSION: 1. Trace right apical pneumothorax which is similar to recent chest CT. 2. The right rib fractures and right pleural fluid suggestive of a hemothorax shown on recent chest CT are not visualized on this exam due to technique. EKG Vent. rate 68 BPM WY interval * ms QRS duration 140 ms QT/QTc 410/435 ms P-R-T axes * -66 90 Atrial fibrillation Left axis deviation Non-specific intra-ventricular conduction block Cannot rule out Anteroseptal infarct , age undetermined Abnormal ECG When compared with ECG of 07-DEC-2014 05:52, Minimal criteria for Anteroseptal infarct are now Present Nonspecific T wave abnormality no longer evident in Inferior leads T wave inversion less evident in Anterolateral leads 25mm/s 10mm/mV 150Hz 8.0 SP2 12SL 241 CEE: 10 Referred by: Referred Self Unconfirmed Impression Assessment and Plan MULTIPLE RT SIDED RIB FX S/P FALL appears to be mechanical fall tripped and lost balance , no chest pain , palpitation or dizzy spell prior EKG rate controlled Afib monitor in tele pain control Incentive spirometry SMALL RT SIDED PNEUMO/HEMOTHORAX : due to fall-rib fx /on Coumadin pt is not in respiratory distress no emergent intervention needed follow Daily Cxray Coumadin resumed for mechanical AVR monitor serial H&H CT surgery Dr Garcia consulted HX OF METALLIC AORTIC VALVE REPLACEMENT ON COUMADIN : s/p AVR in 2002 due to rheumatic heart disease INR 1.7 D/w Cardiology , safe to avoid IV heparin bridge for sub therapeutic INR cont Coumadin ; goal INR 2.5-3.5 ordered for ECHO CHRONIC AFIB rate controlled on Metoprolol Chronic anticoagulation with Coumadin HTN : on Lisinopril , metoprolol HYPERLIPIDEMIA : cont Crestor FULL CODE DVT PROPHYLAXIS ; On Coumadin DISPOSITION : PT/OT eval requested expected to be discharged home when medically stable Level of Care Telemetry Advanced Directives Existing Living Will: Yes Existing Power of Brass Pickler: Yes Resuscitation Status FULL NO CARDIOVERSION VTE Prophylaxis VTE Risk Assessment Done? Y/N: Yes Risk Level: Moderate Given or contraindicated: Warfarin (Coumadin) Additional Copies To Anthony Holbrook M.D. Ambrose, Shaji Perez D.O.
[2017-10-13] MEDS ORDERED: IV FLUIDS COMPLETED PRN (18:00)
[2017-10-13] MEDS ORDERED: SODIUM CHLORIDE 0.9% 1000ML 1,000 ML IV SCH (19:00)
[2017-10-13] MEDS ORDERED: WARFARIN SOD 5 MG TAB PO SCH (19:00)
[2017-10-13 19:37] LABS: HEMATOCRIT 35.9 % (42-52); HEMOGLOBIN 12.1 g/dL (14.0-18.0)
[2017-10-13 19:39] VITALS: BP 174/86; PULSE 67; TEMP 36.6; O2SAT 94
[2017-10-13 21:06] VITALS: BP 154/81; PULSE 73
[2017-10-13] MEDS: ACETAMINOPHEN 325 MG TAB PO PRN (21:50)
[2017-10-13 23:08] VITALS: BP 152/83; PULSE 56; TEMP 37.1; O2SAT 95
[2017-10-14] VITALS (7 sets, daily range): BP systolic 126–162; BP diastolic 69–81; PULSE 56–70; TEMP 36.3–37; O2SAT 92–98
[2017-10-14 04:53] LABS: HEMATOCRIT 33.8 % (42-52); HEMOGLOBIN 11.4 g/dL (14.0-18.0); MEAN CELL VOLUME 83.5 fL (80-100); MEAN CORPUSCULAR HEMOGLOBIN 28.1 pg (25-34); MEAN CORPUSCULAR HGB CONC 33.7 g/dl (32-36); MEAN PLATELET VOLUME 9.9 fL (7.4-10.4); PLATELET COUNT 134 K/uL (130-400); RED CELL DISTRIBUTION WIDTH CV 13.8 % (11.5-14.5); RED CELL DISTRIBUTION WIDTH SD 42.1 fL (36.4-46.3)
[2017-10-14 05:02] LABS: INR 1.7 (0.9-1.1)
[2017-10-14 05:12] LABS: BLOOD UREA NITROGEN 11 mg/dl (7-18); CALCIUM 8.1 mg/dl (8.5-10.1); CARBON DIOXIDE 25 mmol/L (21-32); CREATININE 0.61 mg/dl (0.60-1.40); GLUCOSE 86 mg/dl (70-99); POTASSIUM 3.7 mmol/L (3.5-5.1); SODIUM 134 mmol/L (136-145)
[2017-10-14 05:17] LABS: CHOLESTEROL 96 mg/dl (0-200); LDL CHOLESTEROL CALCULATED 25 mg/dl
[2017-10-14] MEDS ORDERED: OXYCODONE/ACETAMINOPHEN 5-325 TAB PO PRN ×2 (06:45)
--- NOTE | 2017-10-14 07:17 | DIAGNOSTIC IMAGING REPORT ---
CHEST ONE VIEW PORTABLE CLINICAL HISTORY: 82 years-old Male presenting with LEFT SIDED PNEUMOTHORAX /SMALL HEMOTHORAX . TECHNIQUE: Portable upright AP view of the chest was obtained. COMPARISON: 10/13/2017. FINDINGS: Median sternotomy wires and prosthetic aortic valve noted. Atherosclerosis of aortic arch. Cardiac silhouette normal in size. No focal infiltrate. No evidence of a significant residual right apical pneumothorax. Trace right pleural fluid may be present. Degenerative changes of the right glenohumeral joint. Osteopenia suspected. Right rib fractures seen on recent CT not visualized on radiograph. IMPRESSION: 1. No evidence of significant residual right apical pneumothorax. 2. Trace right pleural effusion. 3. Right rib fractures best demonstrated on recent chest CT. Electronically signed by: Stephan Nobles M.D. 10/14/2017 7:16 AM Dictated Date/Time: 10/14/2017 7:14 AM
[2017-10-14] MEDS ORDERED: NURSING VERBAL MED ORDER ONE (08:30)
--- NOTE | 2017-10-14 09:54 | SURGICAL CONSULTATION ---
DATE OF CONSULTATION: 10/14/2017 REASON FOR CONSULTATION: Right hemothorax from rib fractures. HISTORY OF PRESENT ILLNESS: An 82-year-old male who had an aortic valve replacement 15 years ago and has been on Coumadin since that time, who slipped and fell on 10/12/2017. He struck his right side on a refrigerator handle and had pain which was pleuritic in nature. He had no shortness of breath. There is no evidence of transient ischemic attack. He was found to have at least 4 rib fractures on the right side. The patient really has not been short of breath. The CT scan reported pneumothorax, but I am not so sure about that even on the CT scan. If it is, it is extremely small. An x-ray from this morning shows no further accumulation of fluid. He has a small amount of fluid which presumably is blood. He does have some pleuritic chest pain on the right. He has had no productive cough. He was able to cough well while I was in the room. He is also ambulating. I have been asked to comment on this from a thoracic surgery standpoint. PAST MEDICAL HISTORY: 1. Rheumatic heart disease 2. Hypertension. 3. Hypercholesterolemia. 4. Remote history of cigarette smoking. He smoked for about 15 years but quit in 1971. 5. Cataracts. 6. Coronary artery disease. PAST SURGICAL HISTORY: Bilateral cataract extraction with lens implants in [id number]. Aortic and mitral valve replacement with coronary artery bypass grafting x5 in 2002. MEDICATIONS: 1. Aspirin 81 mg. 2. Coenzyme Q10. 3. Flonase. 4. Jackie. 5. Lopressor. 6. Lisinopril. 7. Prilosec. 8. Crestor. 9. Coumadin. ALLERGIES: No known drug allergies. SOCIAL HISTORY: The patient is originally from [facility]. 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 He lives at home with his of over 55 years. FAMILY MEDICAL HISTORY: The patient's mother at 86. Father in the 70s. He has 2 brothers and 2 sisters who are healthy. He has 2 children and multiple grandchildren who are healthy. REVIEW OF SYSTEMS: The patient was in his usual state of health until this occurred. The patient denies chest heaviness, or symptoms of angina or palpitations, although he does have pleuritic right-sided chest pain following his fall. He denies shortness of breath. Denies hemoptysis or productive cough. He has had no fever or chills. He denies any GI symptoms such as nausea, vomiting, diarrhea or hematochezia. He has had no new neurologic events such as amaurosis fugax, transient ischemic attack, although he denied dizziness or vertigo type symptoms in the past. He has had no wound breakdown. He has had no joint effusions. He has had no visual or auditory changes recently. PHYSICAL EXAMINATION: VITAL SIGNS: This is a 5 feet 9 inches, 164-pound male who is awake, alert and conversant. HEENT: Extraocular movements are intact. EARS: Bilateral arcus senilis. EYES: His sclerae pale but anicteric. NOSE: He has no nasolabial flattening. MOUTH: Tongue is midline. There are no oral mucosal lesions. His teeth are in good repair. He has no dentures. NECK: Supple. He has no supraclavicular or cervical lymphadenopathy. He has no tracheal deviation or neck vein distention. I detect no carotid bruits. He is actually moving air well on both sides with no wheezing. He is tender on the right side posterolaterally. He has no crepitus. HEART: He has a regular rate and rhythm of his heart. He has a well-healed midline incision in the sternum with no click. ABDOMEN: Soft and nontender. EXTREMITIES: He has no peripheral edema or palpable peripheral pulses. He has no joint effusions. NEUROLOGICALLY: He is awake, alert and oriented. He does complain of neuropathic symptoms with decreased fine touch discrimination in his plantar surface of his feet. ASSESSMENT AND PLAN: Small right hemothorax 48 hours after blunt chest trauma. I am quite happy with his chest x-ray in the fact that he requires no oxygen. I would probably keep him one more day and if he does not develop any signs or symptoms of pulmonary contusion or increasing size of his pleural effusion, I would feel comfortable letting him go home. He has a good support system at home. JUDY
[2017-10-14] MEDS: LIDODERM (LIDOCAINE) PATCH 5% TD SCH (10:04)
[2017-10-14] MEDS: FEXOFENADINE HCL 180 MG TAB PO SCH (10:05)
[2017-10-14] MEDS: ROSUVASTATIN CALCIUM 20 MG TAB PO SCH (10:05)
[2017-10-14] MEDS: ASCORBIC ACID 500 MG TAB PO SCH (10:06)
[2017-10-14] MEDS: METOPROLOL TARTRATE 25 MG TAB PO SCH (10:06)
[2017-10-14] MEDS: LISINOPRIL 10 MG TAB PO SCH (10:07)
[2017-10-14] MEDS: ACETAMINOPHEN 325 MG TAB PO PRN ×2 (13:11→20:47)
--- NOTE | 2017-10-14 14:40 | ECHOCARDIOGRAM REPORT ---
*NOTICE TO RECEIVING LIBERTARIAN AGENCY This information is strictly Confidential and protected under [place] law. [place] law prohibits you from making any further disclosure of this information unless further disclosure is expressly permitted by the written consent of the person to whom it pertains or is authorized by law. A general authorization for the release of medical or other information is not sufficient for this purpose. Hospital accepts no responsibility if the information is made available to any other person, INCLUDING THE PATIENT. Interpretation Summary * Name: GABY HARRISON Study Date: 10/14/2017 08:38 AM BP: 133/69 mmHg * Patient Location: C.2T\S\S230\S\1 HR: 57 * : 1935 (M/d/yyyy) Gender: Male Height: 69 in * Age: 82 yrs Ethnicity: CA Weight: 173 lb * Ordering Physician: Sridevi Dennis * Referring Physician: Self, Referred * Performed By: Leidy Zambrano RDCS * * Reason For Study: Valvular Heart Disease * BSA: 1.9 m2 * -- Conclusions -- * Normal LV chamber size with mild concentric LVH. * Low normal LV systolic function, EF 50-55%. * Akinesis of the anteroapical and anteroseptal rodney, otherwise, normal wall motion. * Grade I diastolic dysfunction. * There is a bi-leaflet (St. August) aortic mechanical prosthesis. The gradient is normal for this prosthetic aortic valve. No regurgitation. * Mild tricuspid regurgitation. * Mild left atrial enlargement. * Moderate enlargement of the ascending aorta. Procedure Details * A complete two-dimensional transthoracic echocardiogram was performed (2D, M-mode, Doppler and color flow Doppler). * The study was technically difficult. * The study was technically difficult, but visualization was adequate with the administration of Definity ultrasound contrast. * There were technical limitations due to patient'spoor positioning * A contrast injection of Definity was performed to improve assessment of LV function. * Contrast was injected into an intravenous site in the left arm. * One vial of Definity ultrasound contrast was diluted in normal saline to a total volume of 10 ml. A total of '2' ml of solution was administered during imaging. * Lot # [id number] of Definity utilized for procedure. * Expiration date . * The attending nurse who injected the contrast agent was Rubén Domínguez RN. Left Ventricle * The left ventricle is normal in size. * There is mild concentric left ventricular hypertrophy. * Ejection Fraction = 50-55%. * Left ventricular systolic function is low normal. * Akinesis of the anteroapical and anteroseptal rodney, otherwise, normal wall motion. Right Ventricle * The right ventricular cavity size is normal (basal dimension <4.2 cm in right ventricular apical 4-chamber view). * The right ventricular systolic function is normal as assessed by tricuspid annular plane systolic excursion (TAPSE) (normal >1.5 cm). Atria * The left atrium is mildly dilated. * Right atrial size is normal. * No ASD detected; PFO is not assessed. Mitral Valve * There is mild mitral annular calcification. * There is no mitral valve stenosis. * There is no mitral regurgitation noted. Tricuspid Valve * The tricuspid valve anatomy is normal. * There is no tricuspid stenosis. * There is mild tricuspid regurgitation. Aortic Valve * There is a bi-leaflet (St. August) aortic mechanical prosthesis. * The gradient is normal for this prosthetic aortic valve. Pulmonic Valve * The pulmonary valve is not well seen, but the Doppler examination is normal without significant regurgitation or stenosis. Great Vessels * The aortic root is normal size. * Moderately dilated ascending aorta. Pericardium/Pleural * There is no pericardial effusion. MMode 2D Measurements and Calculations IVSd 1.0 cm IVSs 1.5 cm LVIDd 4.7 cm LVIDs 3.5 cm LVPWd 1.1 cm LVPWs 1.5 cm IVS/LVPW 0.94 FS 24.8 % EDV(Teich) 101.0 ml ESV(Teich) 51.3 ml EF(Teich) 49.2 % EDV(cubed) 102.0 ml ESV(cubed) 43.3 ml EF(cubed) 57.5 % % IVS thick 47.9 % % LVPW thick 40.7 % LV mass(C)d 177.2 grams LV mass(C)dI 91.2 grams/m\S\2 LV mass(C)s 201.2 grams LV mass(C)sI 103.6 grams/m\S\2 SV(Teich) 49.7 ml SI(Teich) 25.6 ml/m\S\2 SV(cubed) 58.7 ml SI(cubed) 30.2 ml/m\S\2 Ao root diam 3.0 cm Ao root area 7.2 cm\S\2 ACS 1.5 cm LA dimension 4.2 cm asc Aorta Diam 4.9 cm LA/Ao 1.4 LVAd ap4 35.7 cm\S\2 LVLd ap4 7.8 cm EDV(MOD-sp4) 133.8 ml EDV(sp4-el) 138.4 ml LVAs ap4 24.6 cm\S\2 LVLs ap4 7.3 cm ESV(MOD-sp4) 68.6 ml ESV(sp4-el) 70.8 ml EF(MOD-sp4) 48.7 % EF(sp4-el) 48.8 % LVAd ap2 37.6 cm\S\2 LVLd ap2 8.6 cm EDV(MOD-sp2) 139.1 ml EDV(sp2-el) 138.8 ml LVAs ap2 26.1 cm\S\2 LVLs ap2 8.2 cm ESV(MOD-sp2) 72.1 ml ESV(sp2-el) 69.9 ml EF(MOD-sp2) 48.2 % EF(sp2-el) 49.6 % LVLd %diff 9.4 % EDV(MOD-bp) 144.5 ml LVLs %diff 11.9 % ESV(MOD-bp) 74.6 ml EF(MOD-bp) 48.4 % SV(MOD-sp4) 65.2 ml SI(MOD-sp4) 33.6 ml/m\S\2 SV(MOD-sp2) 67.0 ml SI(MOD-sp2) 34.5 ml/m\S\2 SV(MOD-bp) 69.9 ml SI(MOD-bp) 36.0 ml/m\S\2 SV(sp4-el) 67.6 ml SI(sp4-el) 34.8 ml/m\S\2 SV(sp2-el) 68.9 ml SI(sp2-el) 35.5 ml/m\S\2 Doppler Measurements and Calculations MV E max aneesh 125.6 cm/sec MV dec time 0.25 sec Ao V2 max 161.8 cm/sec Ao max PG 10.5 mmHg Ao max PG (full) 7.4 mmHg LV V1 max PG 3.1 mmHg LV V1 max 87.8 cm/sec PA V2 max 120.5 cm/sec PA max PG 5.9 mmHg TR max aneesh 269.8 cm/sec
[2017-10-14] MEDS ORDERED: WARFARIN SOD 7.5 MG TAB PO SCH (16:00)
--- NOTE | 2017-10-14 19:06 | Progress Note ---
Progress Note Date of Service Oct 14, 2017. Progress Note Subjective: Patient breathing on room air. Has denied pain or breathing difficulties Physical Exam General: no distress Lungs: CTABL, no wheezing Heart: Regular rate Abdomen: soft, nontender, + bowel sounds Extremities: no edema Plan: Small right hemothorax 48 hours after blunt chest trauma. Evaluated by CT surgery and that patient may go home by tomorrow is he does not develop any signs or symptoms of pulmonary contusion or increasing size of his pleural effusion -CXR ordered tomorrow to follow the small right sided hemothorax - acute moderately displaced posterior right 10th rib fracture with several locules of adjacent chest wall gas. There is also a mildly displaced fracture of the posterior right 10th rib. There are nondisplaced fractures of the posterior and posterior lateral right ninth ribs as well as the posterior 11th and 12th ribs -pain control medication as needed, incentive spirometry -continue coumadin for mechanical AVR -chronic Afib with metoprolol for rate control and anticoagulation with Coumadin -Moderate dilatation of the ascending aorta, measuring 4.7 cm. No dissection -Echocardiogram * Low normal LV systolic function, EF 50-55%. * Akinesis of the anteroapical and anteroseptal rodney, otherwise, normal wall motion. * Grade I diastolic dysfunction. * There is a bi-leaflet ([employer]) aortic mechanical prosthesis. The gradient is normal for this prosthetic aortic valve. No regurgitation. * Mild tricuspid regurgitation. * Mild left atrial enlargement. * Moderate enlargement of the ascending aorta. -c/w Lisinopril, cont Crestor
[2017-10-14 19:55] LABS: HEMATOCRIT 37.9 % (42-52); HEMOGLOBIN 12.6 g/dL (14.0-18.0)
[2017-10-15 03:43] VITALS: BP 145/74; PULSE 72; TEMP 36.7; O2SAT 96
[2017-10-15 06:00] LABS: BASO % 0.3 %; BASO ABS # 0.02 K/uL (0-0.2); EOS % 3.2 %; EOS ABS # 0.23 K/uL (0-0.5); HEMATOCRIT 36.1 % (42-52); HEMOGLOBIN 11.7 g/dL (14.0-18.0); IG# 0.02 K/uL (0.00-0.02); LYMPH % 8.5 %; LYMPH ABS # 0.62 K/uL (1.2-3.4); MEAN CELL VOLUME 84.7 fL (80-100); MEAN CORPUSCULAR HEMOGLOBIN 27.5 pg (25-34); MEAN CORPUSCULAR HGB CONC 32.4 g/dl (32-36); MEAN PLATELET VOLUME 10.6 fL (7.4-10.4); MONO % 13.3 %; MONO ABS # 0.97 K/uL (0.11-0.59); NEUT % 74.4 %; NEUT ABS # 5.41 K/uL (1.4-6.5); PLATELET COUNT 159 K/uL (130-400); RED CELL DISTRIBUTION WIDTH CV 13.9 % (11.5-14.5); RED CELL DISTRIBUTION WIDTH SD 42.7 fL (36.4-46.3); WHITE BLOOD COUNT 7.27 K/uL (4.8-10.8)
[2017-10-15 06:33] LABS: INR 1.8 (0.9-1.1)
[2017-10-15 06:37] LABS: CALCIUM 8.4 mg/dl (8.5-10.1); CREATININE 0.64 mg/dl (0.60-1.40); POTASSIUM 3.8 mmol/L (3.5-5.1)
[2017-10-15 08:04] VITALS: BP 143/80; PULSE 69; TEMP 36.8; O2SAT 97
[2017-10-15] MEDS: FEXOFENADINE HCL 180 MG TAB PO SCH (08:40)
[2017-10-15] MEDS: LIDODERM (LIDOCAINE) PATCH 5% TD SCH (08:40)
[2017-10-15] MEDS: ROSUVASTATIN CALCIUM 20 MG TAB PO SCH (08:41)
[2017-10-15] MEDS: METOPROLOL TARTRATE 25 MG TAB PO SCH (08:41)
[2017-10-15] MEDS: ASCORBIC ACID 500 MG TAB PO SCH (08:41)
[2017-10-15] MEDS: LISINOPRIL 10 MG TAB PO SCH (08:42)
[2017-10-15] MEDS: ACETAMINOPHEN 325 MG TAB PO PRN (08:56)
--- NOTE | 2017-10-15 10:00 | DIAGNOSTIC IMAGING REPORT ---
CHEST 2 VIEWS ROUTINE HISTORY: 82 years-old Male follow up hemothorax size follow-up study in a patient with pneumothorax COMPARISON: Chest radiograph 10/14/2017, CT chest 10/13/2017 TECHNIQUE: PA and lateral views of the chest. FINDINGS: Cardiomediastinal and hilar silhouettes are within normal limits. Prior median sternotomy with prosthetic aortic valve. Atherosclerosis of the aorta. Postoperative changes from prior CABG. There is no pneumothorax. Small right pleural effusion, slightly increased in size from comparison. Lungs are mildly hyperinflated. Left lung is generally clear. Previously noted fracture involving the posterior lateral right 10th rib is better seen on comparison chest CT. IMPRESSION: 1. Small right pleural effusion appears slightly increased in size from comparison. 2. No pneumothorax identified. 3. Right-sided rib fractures are better seen on comparison CT of the chest 10/13/2017. The above report was generated using voice recognition software. It may contain grammatical, syntax or spelling errors. Electronically signed by: Miguelangel Patel M.D. 10/15/2017 9:59 AM Dictated Date/Time: 10/15/2017 9:55 AM
--- NOTE | 2017-10-15 10:15 | Progress Note ---
Internal Med Progress Note Date of Service: Oct 15, 2017. Provider Documentation: SUBJECTIVE: Patient returns from chest X ray. Reports that overnight he has been breathing well with occasional shortness of breath from pain but the pain resolves without need for the prn pain medications. OBJECTIVE: Physical Exam General: no distress Lungs: CTABL, no wheezing Heart: Regular rate Abdomen: soft, nontender, + bowel sounds Extremities: no edema ASSESSMENT & PLAN: Hospital Course and Discharge information Patient had small right hemothorax 48 hours after blunt chest trauma. Evaluated by CT surgery. No surgical interventions needed CT head 10/13/17: No acute intracranial hemorrhage, midline shift or mass effect is present. Ventricular system is stable. Basilar cisterns are patent. There are no extra-axial collections. Extensive white matter hypodensity suggests small vessel disease. 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 There is an age indeterminate 1.8 cm infarct within left cerebellar hemisphere. There are no calvarial fractures. Left sphenoid sinus air -fluid levels noted CT chest 10/13/17 Small right hemothorax and trace right pneumothorax. Moderately displaced posterolateral right 10th rib fracture with additional nondisplaced fractures of the right 9th, 10th and 11th ribs. No evidence of traumatic injury to the thoracic aorta. Moderate dilatation of the ascending aorta, measuring 4.7 cm. No dissection. Cholelithiasis. CT abdomen 10/13/17 No acute traumatic findings within the abdomen or pelvis. Multiple right-sided rib fractures, a small right hemothorax and trace right pneumothorax which are better depicted on the chest CT. Cholelithiasis. 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 Chest X ray 10/13/17 1. Trace right apical pneumothorax which is similar to recent chest CT. 2. The right rib fractures and right pleural fluid suggestive of a hemothorax shown on recent chest CT are not visualized on this exam due to technique Chest X ray 10/14/17 1. No evidence of significant residual right apical pneumothorax. 2. Trace right pleural effusion. 3. Right rib fractures best demonstrated on recent chest CT. Chest X ray 10/15/17 Cardiomediastinal and hilar silhouettes are within normal limits. Prior median sternotomy with prosthetic aortic valve. Atherosclerosis of the aorta. Postoperative changes from prior CABG. There is no pneumothorax. Small right pleural effusion, slightly increased in size from comparison. Lungs are mildly hyperinflated. Left lung is generally clear. 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 No dissection -Echocardiogram 10/14/17 * Low normal LV systolic function, EF 50-55%. * Akinesis of the anteroapical and anteroseptal rodney, otherwise, normal wall motion. * Grade I diastolic dysfunction. * There is a bi-leaflet (St[employer]) aortic mechanical prosthesis. The gradient is normal for this prosthetic aortic valve. No regurgitation. * Mild tricuspid regurgitation. * Mild left atrial enlargement. * Moderate enlargement of the ascending aorta. Discharge Instructions Follow up appointment 10/18/2017 11:20 AM Jamison Reynolds DO [facility] For scheduling of [facility] appointments can call [phone] Patient counseled on getting INR check as coumadin level is still subtherapeutic 1.8 for the anticoagulation goal of mechanical aortic valve which is between 2.5 to 3.5. Patient gets blood work checked at the [place] [facility] Patient has history of bradycardia and takes metoprolol and follows with Dr. Mendoza of [facility] cardiology. Patient advised to follow up his appointments with cardiology or to seek medical attention if he becomes suddenly lightheaded as this could be due to bradycardia or other cardiac health issues: chronic atrial fibrillation, Moderate dilatation of the ascending aorta, measuring 4.7 cm Vital Signs: Date Time Temp Pulse Resp B/P (MAP) Pulse Ox O2 Delivery O2 Flow Rate FiO2 10/15/17 08:04 36.8 69 18 143/80 (101) 97 10/15/17 08:00 Room Air 10/15/17 04:02 Room Air 10/15/17 03:43 36.7 72 17 145/74 (97) 96 Room Air 10/15/17 00:02 Room Air 10/14/17 23:22 36.7 67 17 162/81 (108) 95 Room Air 10/14/17 20:00 Room Air 10/14/17 19:34 36.6 56 20 149/77 (101) 98 Room Air 10/14/17 16:00 Room Air 10/14/17 15:49 36.3 64 18 126/75 (92) 97 Room Air 10/14/17 12:00 Room Air 10/14/17 11:56 36.3 70 16 154/78 (103) 96 Room Air 10/14/17 11:25 59 95 Lab Results: Results Past 24 Hours Test 10/14/17 11:34 10/14/17 19:46 10/15/17 05:24 Range/Units Bedside Glucose 85 70-99 mg/dl Hemoglobin 12.6 11.7 14.0-18.0 g/dL Hematocrit 37.9 36.1 42-52 % White Blood Count 7.27 4.8-10.8 K/uL Red Blood Count 4.26 4.7-6.1 M/uL Mean Corpuscular Volume 84.7 80-100 fL Mean Corpuscular Hemoglobin 27.5 25-34 pg Mean Corpuscular Hemoglobin Concent 32.4 32-36 g/dl Platelet Count 159 130-400 K/uL Mean Platelet Volume 10.6 7.4-10.4 fL Neutrophils (%) (Auto) 74.4 % Lymphocytes (%) (Auto) 8.5 % Monocytes (%) (Auto) 13.3 % Eosinophils (%) (Auto) 3.2 % Basophils (%) (Auto) 0.3 % Neutrophils # (Auto) 5.41 1.4-6.5 K/uL Lymphocytes # (Auto) 0.62 1.2-3.4 K/uL Monocytes # (Auto) 0.97 0.11-0.59 K/uL Eosinophils # (Auto) 0.23 0-0.5 K/uL Basophils # (Auto) 0.02 0-0.2 K/uL RDW Standard Deviation 42.7 36.4-46.3 fL RDW Coefficient of Variation 13.9 11.5-14.5 % Immature Granulocyte % (Auto) 0.3 % Immature Granulocyte # (Auto) 0.02 0.00-0.02 K/uL Prothrombin Time 18.9 9.0-12.0 SECONDS Prothromb Time International Ratio 1.8 0.9-1.1 Sodium Level 134 136-145 mmol/L Potassium Level 3.8 3.5-5.1 mmol/L Chloride Level 100 98-107 mmol/L Carbon Dioxide Level 28 21-32 mmol/L Anion Gap 6.0 3-11 mmol/L Blood Urea Nitrogen 11 7-18 mg/dl Creatinine 0.64 0.60-1.40 mg/dl Est Creatinine Clear Calc Drug Dose 90.6 ml/min Estimated GFR () 106.4 Estimated GFR (Non- 91.8 BUN/Creatinine Ratio 17.8 10-20 Random Glucose 90 70-99 mg/dl Calcium Level 8.4 8.5-10.1 mg/dl
[2017-10-15] MEDS ORDERED: ACET-1047 PO (10:26)
--- NOTE | 2017-10-15 10:26 | Discharge Instructions ---
Discharge Instructions Date of Service Oct 15, 2017. Admission Reason for Admission: Hemothorax On Right Discharge Discharge Diagnosis / Problem: small right hemothorax after blunt chest trauma , rib fractures,aortic valve Discharge Goals Goal(s): Decrease discomfort, Improve function Activity Recommendations Activity Limitations: per Instructions/Follow-up section Shower/Bathe: no limitations . Instructions / Follow-Up Instructions / Follow-Up Hospital Course and Discharge information Patient had small right hemothorax 48 hours after blunt chest trauma. Evaluated by CT surgery. No surgical interventions needed CT head 10/13/17: No acute intracranial hemorrhage, midline shift or mass effect is present. Ventricular system is stable. Basilar cisterns are patent. There are no extra-axial collections. Extensive white matter hypodensity suggests small vessel disease. 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 There is an age indeterminate 1.8 cm infarct within left cerebellar hemisphere. There are no calvarial fractures. Left sphenoid sinus air -fluid levels noted CT chest 10/13/17 Small right hemothorax and trace right pneumothorax. Moderately displaced posterolateral right 10th rib fracture with additional nondisplaced fractures of the right 9th, 10th and 11th ribs. No evidence of traumatic injury to the thoracic aorta. Moderate dilatation of the ascending aorta, measuring 4.7 cm. No dissection. Cholelithiasis. CT abdomen 10/13/17 No acute traumatic findings within the abdomen or pelvis. Multiple right-sided rib fractures, a small right hemothorax and trace right pneumothorax which are better depicted on the chest CT. Cholelithiasis. 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 Chest X ray 10/13/17 1. Trace right apical pneumothorax which is similar to recent chest CT. 2. The right rib fractures and right pleural fluid suggestive of a hemothorax shown on recent chest CT are not visualized on this exam due to technique Chest X ray 10/14/17 1. No evidence of significant residual right apical pneumothorax. 2. Trace right pleural effusion. 3. Right rib fractures best demonstrated on recent chest CT. Chest X ray 10/15/17 Cardiomediastinal and hilar silhouettes are within normal limits. Prior median sternotomy with prosthetic aortic valve. Atherosclerosis of the aorta. Postoperative changes from prior CABG. There is no pneumothorax. Small right pleural effusion, slightly increased in size from comparison. Lungs are mildly hyperinflated. Left lung is generally clear. 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 No dissection -Echocardiogram 10/14/17 * Low normal LV systolic function, EF 50-55%. * Akinesis of the anteroapical and anteroseptal rodney, otherwise, normal wall motion. * Grade I diastolic dysfunction. * There is a bi-leaflet (St. [employer]) aortic mechanical prosthesis. The gradient is normal for this prosthetic aortic valve. No regurgitation. * Mild tricuspid regurgitation. * Mild left atrial enlargement. * Moderate enlargement of the ascending aorta. Discharge Instructions Follow up appointment 10/18/2017 11:20 AM Jamison Reynolds DO [facility] For scheduling of [facility] appointments can call [phone] Patient counseled on getting INR check as coumadin level is still subtherapeutic 1.8 for the anticoagulation goal of mechanical aortic valve which is between 2.5 to 3.5. Patient gets blood work checked at the [place] clinic Patient has history of bradycardia and takes metoprolol and follows with Dr. Mendoza of [facility] cardiology. Patient advised to follow up his appointments with cardiology or to seek medical attention if he becomes suddenly lightheaded as this could be due to bradycardia or other cardiac health issues: chronic atrial fibrillation, Moderate dilatation of the ascending aorta, measuring 4.7 cm Current Hospital Diet Patient's current hospital diet: AHA Diet (Heart Healthy) Discharge Diet Recommended Diet: AHA Diet (Heart Healthy) Pending Studies Studies pending at discharge: no Laboratory Results 10/15/17 05:24 Red Blood Count 4.26, Mean Corpuscular Volume 84.7, Mean Corpuscular Hemoglobin 27.5, Mean Corpuscular Hemoglobin Concent 32.4, Mean Platelet Volume 10.6, Neutrophils (%) (Auto) 74.4, Lymphocytes (%) (Auto) 8.5, Monocytes (%) (Auto) 13.3, Eosinophils (%) (Auto) 3.2, Basophils (%) (Auto) 0.3, Neutrophils # (Auto ) 5.41, Lymphocytes # (Auto) 0.62, Monocytes # (Auto) 0.97, Eosinophils # (Auto ) 0.23, Basophils # (Auto) 0.02 10/15/17 05:24 Test 10/13/17 13:45 10/13/17 17:40 10/14/17 04:46 10/14/17 11:34 Activated Partial Thromboplast Time 29.5 SECONDS (21.0-31.0) Partial Thromboplastin Ratio 1.1 Thyroid Stimulating Hormone (TSH) 2.170 uIu/ml (0.300-4.500) Troponin I < 0.015 ng/ml (0-0.045) Triglycerides Level 45 mg/dl (0-150) Cholesterol Level 96 mg/dl (0-200) HDL Cholesterol 62 mg/dl LDL Cholesterol, Calculated 25 mg/dl VLDL Cholesterol, Calculated 9 mg/dl Cholesterol/HDL Ratio 1.5 Bedside Glucose 85 mg/dl (70-99) Test 10/15/17 05:24 White Blood Count 7.27 K/uL (4.8-10.8) Red Blood Count 4.26 M/uL (4.7-6.1) Hemoglobin 11.7 g/dL (14.0-18.0) Hematocrit 36.1 % (42-52) Mean Corpuscular Volume 84.7 fL (80-100) Mean Corpuscular Hemoglobin 27.5 pg (25-34) Mean Corpuscular Hemoglobin Concent 32.4 g/dl (32-36) Platelet Count 159 K/uL (130-400) Mean Platelet Volume 10.6 fL (7.4-10.4) Neutrophils (%) (Auto) 74.4 % Lymphocytes (%) (Auto) 8.5 % Monocytes (%) (Auto) 13.3 % Eosinophils (%) (Auto) 3.2 % Basophils (%) (Auto) 0.3 % Neutrophils # (Auto) 5.41 K/uL (1.4-6.5) Lymphocytes # (Auto) 0.62 K/uL (1.2-3.4) Monocytes # (Auto) 0.97 K/uL (0.11-0.59) Eosinophils # (Auto) 0.23 K/uL (0-0.5) Basophils # (Auto) 0.02 K/uL (0-0.2) RDW Standard Deviation 42.7 fL (36.4-46.3) RDW Coefficient of Variation 13.9 % (11.5-14.5) Immature Granulocyte % (Auto) 0.3 % Immature Granulocyte # (Auto) 0.02 K/uL (0.00-0.02) Prothrombin Time 18.9 SECONDS (9.0-12.0) Prothromb Time International Ratio 1.8 (0.9-1.1) Anion Gap 6.0 mmol/L (3-11) Est Creatinine Clear Calc Drug Dose 90.6 ml/min Estimated GFR () 106.4 Estimated GFR (Non- 91.8 BUN/Creatinine Ratio 17.8 (10-20) Calcium Level 8.4 mg/dl (8.5-10.1) Lipid Panel Test 10/14/17 04:46 Range/Units Triglycerides Level 45 0-150 mg/dl Cholesterol Level 96 0-200 mg/dl HDL Cholesterol 62 mg/dl Cholesterol/HDL Ratio 1.5 LDL Cholesterol, Calculated 25 mg/dl Medical Emergencies . Who to Call and When: Medical Emergencies: If at any time you feel your situation is an emergency, please call 911 immediately. . Non-Emergent Contact Non-Emergency issues call your: Primary Care Provider, Dispatcher Ship Pilot . . "Provider Documentation" section prepared by Efrain Mendez. . VTE Core Measure Inpt VTE Proph given/why not?: Warfarin (Coumadin)
--- NOTE | 2017-10-15 10:35 | Discharge Summary ---
Discharge Summary Date of Service Oct 15, 2017. 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 No dissection Medication Reconciliation New Medications: Acetaminophen (Mapap) 325 Mg Tab 650 MG PO Q4H PRN for Pain or Fever for 5 Days, #40 TAB Continued Medications: Ascorbic Acid (Vitamin C) 1,000 Mg Tab 1 TAB PO DAILY Aspirin (Aspirin Ec) 81 Mg Tab 81 MG PO DAILY Coenzyme Q10 (Ubidecarenone) (Coenzyme Q-10) 200 Mg Cap 200 MG PO DAILY Fexofenadine Hcl (Jackie Allergy) 180 Mg Tab 1 TAB PO DAILY for 14 Days, #14 TAB 2 Refills Fluticasone Propionate (Nasal) (Flonase Allergy Relief) 50 Mcg/Act Spr 2 SPRAYS ISAIAH DAILY PRN for Allergic Reaction Lisinopril (Zestril) 10 Mg Tab 10 MG PO DAILY, TAB Metoprolol Tartrate (Lopressor) (Lopressor) 25 Mg Tab 25 MG PO DAILY, TAB Omeprazole (Prilosec) 20 Mg Cap 20 MG PO DAILY PRN for Indigestion, CAP Red Yeast Rice Extract (Red Yeast Rice) 600 Mg Cap 600 MG PO Q2D Rosuvastatin Calcium (Crestor) 20 Mg Tab 20 MG PO DAILY, TAB Warfarin Sodium (Coumadin) 5 Mg Tab 5 MG PO [id number], TAB TAKE DAILY EXCEPT TAKE 7.5 MG MON. Warfarin Sodium (Coumadin) 7.5 Mg Tab 7.5 MG PO MON, TAB Admission Information HPI (per Admitting provider): is 82-year-old male with past medical hx of S/p mechanical Aortic valve replacement in 2002 for rheumatic heart disease on chronic anticoagulation with coumadin , HTN , hyperlipidemia , Afib presented to ER after sustaining a fall yesterday evening pt was in his kitchen was walking to the refrigerator , tripped and fell in his right side , hitting rit side of his chest to the refrigerator handle had excruciating pain on rt side of chest worse with movement and taking deep breath denies of episodes of dizzy spell, chest heaviness, palpitation prior to fall in the ER imaging shows multiple rib Fx on rt side Hospital Course Hospital Course and Discharge information Patient had small right hemothorax 48 hours after blunt chest trauma. Evaluated by CT surgery. No surgical interventions needed CT head 10/13/17: No acute intracranial hemorrhage, midline shift or mass effect is present. Ventricular system is stable. Basilar cisterns are patent. There are no extra-axial collections. Extensive white matter hypodensity suggests small vessel disease. 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 There is an age indeterminate 1.8 cm infarct within left cerebellar hemisphere. There are no calvarial fractures. Left sphenoid sinus air -fluid levels noted CT chest 10/13/17 Small right hemothorax and trace right pneumothorax. Moderately displaced posterolateral right 10th rib fracture with additional nondisplaced fractures of the right 9th, 10th and 11th ribs. No evidence of traumatic injury to the thoracic aorta. Moderate dilatation of the ascending aorta, measuring 4.7 cm. No dissection. Cholelithiasis. CT abdomen 10/13/17 No acute traumatic findings within the abdomen or pelvis. Multiple right-sided rib fractures, a small right hemothorax and trace right pneumothorax which are better depicted on the chest CT. Cholelithiasis. 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 Chest X ray 10/13/17 1. Trace right apical pneumothorax which is similar to recent chest CT. 2. The right rib fractures and right pleural fluid suggestive of a hemothorax shown on recent chest CT are not visualized on this exam due to technique Chest X ray 10/14/17 1. No evidence of significant residual right apical pneumothorax. 2. Trace right pleural effusion. 3. Right rib fractures best demonstrated on recent chest CT. Chest X ray 10/15/17 Cardiomediastinal and hilar silhouettes are within normal limits. Prior median sternotomy with prosthetic aortic valve. Atherosclerosis of the aorta. Postoperative changes from prior CABG. There is no pneumothorax. Small right pleural effusion, slightly increased in size from comparison. Lungs are mildly hyperinflated. Left lung is generally clear. 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 No dissection -Echocardiogram 10/14/17 * Low normal LV systolic function, EF 50-55%. * Akinesis of the anteroapical and anteroseptal rodney, otherwise, normal wall motion. * Grade I diastolic dysfunction. * There is a bi-leaflet (St. [employer]) aortic mechanical prosthesis. The gradient is normal for this prosthetic aortic valve. No regurgitation. * Mild tricuspid regurgitation. * Mild left atrial enlargement. * Moderate enlargement of the ascending aorta. Discharge Instructions Follow up appointment 10/18/2017 11:20 AM Jamison Reynolds DO [facility] For scheduling of [facility] appointments can call [phone] Patient counseled on getting INR check as coumadin level is still subtherapeutic 1.8 for the anticoagulation goal of mechanical aortic valve which is between 2.5 to 3.5. Patient gets blood work checked at the [place] clinic Patient has history of bradycardia and takes metoprolol and follows with Dr. Mendoza of [facility] cardiology. Patient advised to follow up his appointments with cardiology or to seek medical attention if he becomes suddenly lightheaded as this could be due to bradycardia or other cardiac health issues: chronic atrial fibrillation, Moderate dilatation of the ascending aorta, measuring 4.7 cm Total time spent on discharge = 60 minutes This includes examination of the patient, discharge planning, medication reconciliation, and communication with other providers. Discharge Instructions see above
[2017-10-15 10:59] VITALS: BP 143/80; PULSE 69; TEMP 36.8; O2SAT 97
== END 2017-10-15 13:34 | disposition home or self-care (01) ==
LOC: C.EDB 12:49 → C.2T 16:36 → ENRESERV 17:03
PROVIDERS: ADMIT Hospitalist; ATTEND Internal Medicine
DX: S27.1XXA Traumatic hemothorax, initial encounter (principal); S22.41XA Multiple fractures of ribs, right side, initial encounter for closed fracture; W01.198A Fall on same level from slipping, tripping and stumbling with subsequent striking against other object, initial encounter; I48.2 Chronic atrial fibrillation; R00.1 Bradycardia, unspecified; E78.5 Hyperlipidemia, unspecified; I09.9 Rheumatic heart disease, unspecified; I10 Essential (primary) hypertension; I25.10 Atherosclerotic heart disease of native coronary artery without angina pectoris; Z79.01 Long term (current) use of anticoagulants; Z79.82 Long term (current) use of aspirin; Z95.2 Presence of prosthetic heart valve; Z87.891 Personal history of nicotine dependence; Z95.1 Presence of aortocoronary bypass graft

== ENCOUNTER → 2017-10-30 | Outpatient (CLI) | payer OTHER ==
[~2017-10-30] MED LIST changes: +ACET-1047 PO; +FEXO1TAB49 PO; -TRMCR130WC TOP
--- NOTE | 2017-10-30 14:35 | DIAGNOSTIC IMAGING REPORT ---
CHEST 2 VIEWS ROUTINE CLINICAL HISTORY: J93.9 [id number] dyspnea COMPARISON STUDY: 10/15/2017 FINDINGS: Prior median sternotomy. Lungs remain generally clear. Slight blunting right lateral costophrenic angle improved from the prior exam. No evidence of pneumothorax. IMPRESSION: Improved right base with minimal blunting right lateral costophrenic angle. Lungs otherwise are clear with no acute process. The above report was generated using voice recognition software. It may contain grammatical, syntax or spelling errors. Electronically signed by: Dipesh Graham M.D. 10/30/2017 2:34 PM Dictated Date/Time: 10/30/2017 2:32 PM
== END | disposition home or self-care (01) ==
LOC: C.RAD1850 14:24
PROVIDERS: ATTEND Surgery
DX: J93.9 Pneumothorax, unspecified (principal); R06.00 Dyspnea, unspecified

== ENCOUNTER 2020-02-08 14:58 | Inpatient (IN) ==
--- OUTSIDE RECORDS SUMMARY | 2020-02-08 15:02 | External Medical Summary | Continuity of Care Document ---
:1935 Author Name Lashonda Barahona, Provider Address Unavailable Unavailable , Care Team Providers Name Role Phone Marco [email or web address] [email or web address] GABY BARKER Unavailable Unavailable Unavailable Unavailable Unavailable Problems Pneumothorax (512.89) (J93.9) Allergies and Adverse Reactions No Known Drug Allergies (Allergy) Medications Ascorbic Acid 1000 MG Oral Tablet; TAKE 1 TABLET DAILY. Start: 31-Oct-2017 Refills: 0 Aspirin EC Low Strength 81 MG Oral Tablet Delayed Rele ase; TAKE 1 TABLET DAILY. Start: 31-Oct-2017 Refills: 0 Coenzyme Q-10 200 MG Oral Capsule; TAKE DIRECTED. Start: 31-Oct-2017 Refills: 0 Coumadin 5 MG Oral Tablet; TAKE 1 TABLET DAILY. Start: 31-Oct-2017 Refills: 0 Crestor 20 MG Oral Tablet; TAKE 1 TABLET DAILY. Start: 31-Oct-2017 Refills: 0 Lisinopril 10 MG Oral Tablet; TAKE 1 TABLET DAILY. Start: 31-Oct-2017 Refills: 0 15 Tablet Bottle Metoprolol Succinate ER 25 MG Oral Table t Extended Release 24 Hour; TAKE 1 TABLET DAILY. Start: 31-Oct-2017 Refills: 0 100 Tablet Bottle Omeprazole 20 MG Oral Capsule Delayed Release; TAKE 1 CAPSUL E TWICE DAILY. Start: 31-Oct-2017 Refills: 0 Red Yeast Rice 600 MG Oral Tablet; TAKE 1 TABLET Twice a Wee k Start: 31-Oct-2017 Refills: 0 Vitamin D3 25 MCG (1000 UT) Oral Capsule; TAKE 1 CAPSULE Jazz ly Start: 31-Oct-2017 Refills: 0 Procedures Procedures not documented Immunizations Immunizations not documented Family History Father Family history of cardiac disorder (V17.49) (Z82.49) Status: Active Social History - Smoking Status Ex-smoker Plan of Treatment Planned Observations Planned Goals not documented Results No Known Results Results not documented
[2020-02-08] MEDS ORDERED: ONDANSETRON INJ 2 MG/ML 2 ML VIAL IV STA (15:05)
[2020-02-08] MEDS ORDERED: SODIUM CHLORIDE 0.9% 500 ML IV SCH (15:15)
[2020-02-08] MEDS: fentaNYL citrate 100 MCG/2 ML VIAL IV PRN ×2 (15:23→18:25)
[2020-02-08 15:41] LABS: Albumin Level 3.7 gm/dl (3.4-5.0); BUN Creatinine Ratio 18.2 (10-20); Creatinine Clr Calc Pharmacy 76.7 ml/min; Est GFR (African American) 99.4; Est GFR (Non-African American) 85.8; Potassium 3.9 mmol/L (3.5-5.1)
[2020-02-08 15:43] LABS: Basophils # (auto) 0.03 K/uL (0-0.2); Basophils % (auto) 0.4 %; Eosinophils # (auto) 0.29 K/uL (0-0.5); Eosinophils % (auto) 3.4 %; Hematocrit (blood only) 39.6 % (42-52); Hemoglobin 12.9 g/dL (14.0-18.0); Immature Granulocytes # (auto) 0.04 K/uL (0.00-0.02); Immature Granulocytes % (auto) 0.5 %; Lymphocytes # (auto) 1.41 K/uL (1.2-3.4); Lymphocytes % (auto) 16.5 %; Mean Corpuscular Hgb Conc 32.6 g/dL (32-36); Neutrophils # (auto) 6.15 K/uL (1.4-6.5); Neutrophils % (auto) 72.2 %; Platelet Count 203 K/uL (130-400); RDW Coefficient of Variation 14.1 % (11.5-14.5); RDW Standard Deviation 43.1 fL (36.4-46.3); Red Blood Count 4.77 M/uL (4.7-6.1); White Blood Count 8.52 K/uL (4.8-10.8)
[2020-02-08 15:44] LABS: Albumin Globulin Ratio 1.1 (0.9-2); Bilirubin,Total 1.1 mg/dl (0.2-1); Globulin 3.5 gm/dl (2.5-4.0); Total Protein 7.2 gm/dl (6.4-8.2)
[2020-02-08 15:45] LABS: INR 2.5 (0.9-1.1); Partial Thromboplastin Ratio 1.1; Partial Thromboplastin Time 29.9 Seconds (21.0-31.0); Prothrombin Time 25.2 Seconds (9.0-12.0)
--- NOTE | 2020-02-08 15:47 | XRay Report ---
XR chest 1V portable CLINICAL HISTORY: fall trauma. Pain. COMPARISON STUDY: 10/14/2017 FINDINGS: Mild stable cardiomegaly post median sternotomy. Lungs are clear. Diaphragms are smooth. IMPRESSION: No acute process. ACT 112: Negative or not required by law. The above report was generated using voice recognition software. It may contain grammatical, syntax or spelling errors. Electronically signed by: Dipesh Graham M.D. 02/08/2020 3:45 PM
--- NOTE | 2020-02-08 15:48 | XRay Report ---
XR hip LT 2V w pelvis CLINICAL HISTORY: fall. Left hip pain. COMPARISON STUDY: None. FINDINGS: Slightly displaced intertrochanteric fracture of the proximal left femur. No dislocation. N o fractures identified within the pelvis or right hip. IMPRESSION: Slightly displaced intertrochanteric fracture of the proximal left femur. ACT 112: Negative or not required by law. Electronically signed by: Yuri Martin M.D. 02/08/2020 3:47 PM
--- NOTE | 2020-02-08 16:08 | Electrocardiogram Report ---
Test Reason : Blood Pressure : / mmHG Vent. Rate : 072 BPM Atrial Rate : 064 BPM P-R Int : 000 ms QRS Dur : 148 ms QT Int : 432 ms P-R-T Axes : 000 -77 092 degrees QTc Int : 473 ms Poor data quality, interpretation may be adversely affected Atrial fibrillation with premature ventricular or aberrantly conducted complexes Left axis deviation Left bundle branch block Abnormal ECG When compared with ECG of 15-OCT-2017 06:27, No significant change was found Confirmed by Kishan Vargas ([id number]) on 02/08/2020 4:07:59 PM Referred By: Confirmed By:Kishan Vargas
--- NOTE | 2020-02-08 16:34 | CT Scan Report ---
CT head/brain wo con CT DOSE: HISTORY: Trauma. Mental status change. fall TECHNIQUE: Multiaxial CT images of the head were performed without the use of intravenous contrast. A dose lowering technique was utilized adhering to the principles of ALARA. Comparison: 10/13/2017 Findings: The paranasal sinuses and mastoid air cells are clear. The calvarium and skull base are int act. The ventricles and sulci are within normal limits. There is no mass, hematoma, midline shift, or acute infarct. Findings of considerable atrophy as well as extensive chronic small vessel change thr oughout both cerebral hemispheres. 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 Impression: No acute intracranial abnormality. Atrophy and considerable age-related chronic small vessel change. ACT 112: Negative or not required by law. The above report was generated using voice recognition software. It may contain grammatical, syntax or spelling errors. Electronically signed by: Dipesh Graham M.D. 02/08/2020 4:33 PM
--- NOTE | 2020-02-08 16:37 | CT Scan Report ---
CT SCAN OF THE CERVICAL SPINE CLINICAL HISTORY: Fall. COMPARISON STUDY: No priors. TECHNIQUE: CT scan of the cervical spine is performed from the skull base to the upper thoracic spine . Images are reviewed in the axial, sagittal, and coronal planes. IV contrast was not administered fo r this examination. A dose lowering technique was utilized adhering to the principles of ALARA. CT DOSE: 1078.11 mGy.cm FINDINGS: Skeletal structures: The skeletal structures are osteopenic. There is no evidence of fracture or subl uxation involving the cervical spine. Vertebral body height is maintained. Minimal anterolisthesis is noted at C7-T1. Alignment is otherwise preserved. Anterior osteophytes are seen throughout. The odon toid process and lateral masses are intact. The atlantoaxial articulation is preserved noting product holli degenerative change. The spinous processes appear intact. There is moderate multilevel cervical s pondylosis. Uncovertebral and facet arthropathy contribute to neural foraminal stenosis at several le vels. There is a healed right posterior first rib fracture. Intervertebral discs: There is moderate to severe disc space narrowing at C5-C6. Moderate disc space narrowing is noted at C4-C5. Central canal: Large posterior disc osteophyte complexes at C4-C5 and C5-C6 likely contribute to acqu ired compromise of the central canal. Soft tissues: The prevertebral and paraspinous soft tissues are within normal limits. There is athero sclerotic calcification of the carotid bulbs. Calvarium: The visualized calvarium at the skull base appears intact. Brain parenchyma: Partially visualized brain parenchyma the skull base is within normal limits. Sinuses and mastoids: The visualized paranasal sinuses are clear. The mastoid air cells are well pneu matized. Lung apices: Clear as visualized. IMPRESSION: 1. There is no evidence of fracture or subluxation involving the cervical spine. 2. Osteopenia and spondylotic change as above. ACT 112: Negative or not required by law. Electronically signed by: Cooper Cisse M.D. 02/08/2020 4:36 PM
--- NOTE | 2020-02-08 16:49 | Emergency Department Note ---
Impression & Plan Subcapital fracture of left hip, Fall, Head injury ED Provider Note NAME: GABY HARRISON AGE: 84 SEX: M : 1935 ARRIVES VIA: Ambulance INFORMANT: Patient, ED PROVIDER(S): Kishan Bedoya DO CHIEF COMPLAINT: Left hip pain HPI: The patient is an 84-year-old male who presented to the emergency department for an evaluation of left hip pain. The patient was doing an exercise class at his personal prison when he fell backwards. He landed on his left side striking his left hip. The patient states he did strike his head as well but only has a minimal headache. He has no neck pain or back pain. He denies having any nausea or vomiting. The patient arrived at the emergency department via BLS with a left hip immobilized as best possible. The patient has very severe pain with any movement of the left hip. He denies having any weakness in the legs but does complain of generalized numbness in both lower extremities and states he has a history of peripheral neuropathy. He denies having any nausea or vomiting or chest pain. ROS: See above HPI for pertinent positives & negatives. A total of 10 systems reviewed and were otherwise negative. PAST MEDICAL HISTORY: See Below PAST SURGICAL HISTORY: See Below FAMILY HISTORY: See Below SOCIAL HISTORY: See Below HOME MEDICATIONS: See Below ALLERGIES: See Below VITALS: See Below PHYSICAL EXAMINATION: GENERAL: The patient is awake and alert. He is very anxious appearing and appears to be uncomfortable. EYES: The conjunctivae are clear. The pupils are round and reactive. EARS, NOSE, MOUTH AND THROAT: The nose is without any evidence of any deformity. Mucous membranes are dry. NECK: The neck is nontender and supple. RESPIRATORY: Normal respiratory effort is noted there is no evidence of wheezing rhonchi or rales CARDIOVASCULAR: Regular rate and rhythm noted there no murmurs rubs or gallops normal S1 normal S2. GASTROINTESTINAL: The abdomen is soft. Abdomen is nontender. BACK: No midline tenderness or or step-off noted range of motion in flexion extension as well as rotation no signs of muscle spasm noted MUSCULOSKELETAL/EXTREMITIES: The left lower extremity is shortened and externally rotated. There is no tenderness to palpation over the knee or the ankle. The patient has severe pain with any range of motion testing left hip. SKIN: There is no obvious evidence of any rash. Trace pedal edema was noted bilaterally. Pulses are symmetric in both feet. Skin is warm and dry. NEUROLOGIC: Patient is awake alert and oriented x3. MEDICAL DECISION MAKING: The patient is an 84-year-old male who presented to the emergency department after a fall. The patient was treated with pain medication in the emergency department. He was found to have signs of hip fracture on x-ray. I discussed the patient's laboratory and radiographic studies with him. I also discussed his case with the on-call [facility] group. They have agreed to evaluate the patient in the emergency department for further management and disposition. The patient was feeling much better on subsequent reevaluation. Triage Nursing notes reviewed. Prior medical records reviewed Vital Signs: reviewed and remarkable for elevated blood pressure Differential diagnosis: Fracture, subluxation, dislocation, contusion, ligamentous injury, neurovascular, compartment syndrome, rhabdomyolysis, as well as other pathologies. ER treatment provided: See below Diagnostics interpreted by me: ECG: EKG was obtained in the emergency department. My interpretation is atrial fibrillation at 72 bpm. PVCs and left bundle branch block pattern was appreciated. This was compared to a tracing from October 15, 2017. No significant changes were noted. Cardiac Monitoring: An order was placed for continuous cardiac monitoring. The monitor shows a rate of 65 with atrial fibrillation rhythm. Laboratory studies: As stated above and show below. Imaging studies: See below Consultation(s): 1615: I discussed this case with Gwen who is on-call for the [facility] group. They have agreed to evaluate the patient in the emergency department for further management and disposition. 1805: I discussed this case with Dr. Rodriguez who is on-call for the orthopedics group that the patient was requesting. They have agreed to evaluate the patient for further management once he is medically cleared. I did discuss the patient's radiographic studies with him. 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) Social History Feels Safe at Home: Yes Smoking Status: Former smoker Allergies Allergies Allergy/AdvReac Type Severity Reaction Status Date / Time Sulfa (Sulfonamide AdvReac Intermediate Unknown Unverified 02/08/20 15:14 Antibiotics) Home Meds Home Medications Medication Instructions Recorded Confirmed rosuvastatin 20 mg PO Q OTHER DAY #0 tab 12/06/14 02/08/20 warfarin 5 mg PO PM #0 tab 12/06/14 02/08/20 ascorbic acid (vitamin C) [Vitamin 500 mg PO QAM #0 03/28/17 02/08/20 C] aspirin 81 mg PO QAM #0 03/28/17 02/08/20 coQ10 (ubiquinol) 200 mg PO QAM #0 03/28/17 02/08/20 lisinopril 10 mg PO QAM #0 tab 03/28/17 02/08/20 metoprolol tartrate 25 mg PO QAM #0 tab 03/28/17 02/08/20 cholecalciferol (vitamin D3) 25 mcg PO QAM 02/08/20 02/08/20 [Vitamin D3] loratadine 10 mg PO QAM 02/08/20 02/08/20 omega 6-caj-wvi-fish oil [Fish Oil] 1 cap PO QAM 02/08/20 02/08/20 vitamin B complex 1 tab PO QAM 02/08/20 02/08/20 Results & Data (ED) Vital Signs Vital Signs - 24 hr 02/08/20 15:31 02/08/20 15:32 02/08/20 15:33 Temperature 36.7 C Temperature Source Oral Pulse Rate 60 69 Pulse Rate from SpO2 Sensor 60 Respiratory Rate 17 16 Respiratory Effort / Characteristics Non-Labored Spontaneous Respiratory Depth Normal Respiratory Pattern Regular Blood Pressure 189/89 H 189/101 H Blood Pressure Mean 110 130 Blood Pressure Position Lying Pulse Oximetry 97 99 99 Oxygen Delivery Method Room Air Room Air Sepsis Recent Fever Within 48 Hours No Sepsis New/Unexplained Change in Mental Status No Sepsis Action Taken by Nursing No Action Required 02/08/20 16:29 02/08/20 16:31 02/08/20 17:01 Temperature Temperature Source Pulse Rate 57 L 68 68 Pulse Rate from SpO2 Sensor 63 66 Respiratory Rate 13 15 15 Respiratory Effort / Characteristics Respiratory Depth Respiratory Pattern Blood Pressure 169/96 H 177/82 H 176/97 H Blood Pressure Mean 115 125 116 Blood Pressure Position Pulse Oximetry 98 97 97 Oxygen Delivery Method Room Air Sepsis Recent Fever Within 48 Hours Sepsis New/Unexplained Change in Mental Status Sepsis Action Taken by [facility] Medications Current Medication List: was personally reviewed by me Laboratory Data Attestation: I reviewed the patient's lab results. Result diagrams: 02/08/20 15:16 02/08/20 15:16 Lab Results 02/08/20 02/08/20 02/08/20 Range/Units 15:16 15:16 15:16 WBC 8.52 (4.8-10.8) K/uL RBC 4.77 (4.7-6.1) M/uL Hgb 12.9 L (14.0-18.0) g/dL Hct 39.6 L (42-52) % MCV 83.0 (80-100) fL MCH 27.0 (25-34) pg MCHC 32.6 (32-36) g/dL RDW Std Deviation 43.1 (36.4-46.3) fL RDW Coeff of Miller 14.1 (11.5-14.5) % Plt Count 203 (130-400) K/uL MPV 10.0 (7.4-10.4) fL Immature Gran % (Auto) 0.5 % Neut % (Auto) 72.2 % Lymph % (Auto) 16.5 % Treasure % (Auto) 7.0 % Eos % (Auto) 3.4 % Baso % (Auto) 0.4 % Neut # (Auto) 6.15 (1.4-6.5) K/uL Lymph # (Auto) 1.41 (1.2-3.4) K/uL Treasure # (Auto) 0.60 H (0.11-0.59) K/uL Eos # (Auto) 0.29 (0-0.5) K/uL Baso # (Auto) 0.03 (0-0.2) K/uL Immature Gran # (Auto) 0.04 H (0.00-0.02) K/uL PT 25.2 H (9.0-12.0) Seconds INR 2.5 H (0.9-1.1) APTT 29.9 (21.0-31.0) Seconds PTT Ratio 1.1 Sodium 134 L (136-145) mmol/L Potassium 3.9 (3.5-5.1) mmol/L Chloride 102 (98-107) mmol/L Carbon Dioxide 25 (21-32) mmol/L Anion Gap 7.0 (3-11) BUN 13 (7-18) mg/dl Creatinine 0.73 (0.6-1.4) mg/dl Est Cr Clr Drug Dosing 76.7 ml/min Est GFR ( Amer) 99.4 Est GFR (Non-Af Amer) 85.8 BUN/Creatinine Ratio 18.2 (10-20) Glucose 111 H (70-99) mg/dl Calcium 9.0 (8.5-10.1) mg/dl Total Bilirubin 1.1 H (0.2-1) mg/dl AST 31 (15-37) U/L ALT 27 (12-78) U/L Alkaline Phosphatase 107 (45-117) U/L Total Protein 7.2 (6.4-8.2) gm/dl Albumin 3.7 (3.4-5.0) gm/dl Globulin 3.5 (2.5-4.0) gm/dl Albumin/Globulin Ratio 1.1 (0.9-2) Lipase 106 (73-393) U/L Urine Color Urine Appearance (Clear) Urine pH (4.5-7.5) Ur Specific Warren (1.000-1.030) Urine Protein (Negative) Urine Glucose (UA) (Negative) Urine Ketones (Negative) Urine Blood (Negative) Urine Nitrite (Negative) Urine Bilirubin (Negative) Urine Urobilinogen (Negative) Ur Leukocyte Esterase (Negative) Urine WBC (Auto) (0-5) /hpf Urine RBC (Auto) (0-4) /hpf U Hyaline Cast (Auto) (0-5) /lpf U Epithel Cells (Auto) (0-5) /lpf Urine Bacteria (Auto) (Negative) 02/08/20 Range/Units 17:36 WBC (4.8-10.8) K/uL RBC (4.7-6.1) M/uL Hgb (14.0-18.0) g/dL Hct (42-52) % MCV (80-100) fL MCH (25-34) pg MCHC (32-36) g/dL RDW Std Deviation (36.4-46.3) fL RDW Coeff of Miller (11.5-14.5) % Plt Count (130-400) K/uL MPV (7.4-10.4) fL Immature Gran % (Auto) % Neut % (Auto) % Lymph % (Auto) % Treasure % (Auto) % Eos % (Auto) % Baso % (Auto) % Neut # (Auto) (1.4-6.5) K/uL Lymph # (Auto) (1.2-3.4) K/uL Treasure # (Auto) (0.11-0.59) K/uL Eos # (Auto) (0-0.5) K/uL Baso # (Auto) (0-0.2) K/uL Immature Gran # (Auto) (0.00-0.02) K/uL PT (9.0-12.0) Seconds INR (0.9-1.1) APTT (21.0-31.0) Seconds PTT Ratio Sodium (136-145) mmol/L Potassium (3.5-5.1) mmol/L Chloride (98-107) mmol/L Carbon Dioxide (21-32) mmol/L Anion Gap (3-11) BUN (7-18) mg/dl Creatinine (0.6-1.4) mg/dl Est Cr Clr Drug Dosing ml/min Est GFR ( Amer) Est GFR (Non-Af Amer) BUN/Creatinine Ratio (10-20) Glucose (70-99) mg/dl Calcium (8.5-10.1) mg/dl Total Bilirubin (0.2-1) mg/dl AST (15-37) U/L ALT (12-78) U/L Alkaline Phosphatase (45-117) U/L Total Protein (6.4-8.2) gm/dl Albumin (3.4-5.0) gm/dl Globulin (2.5-4.0) gm/dl Albumin/Globulin Ratio (0.9-2) Lipase (73-393) U/L Urine Color Dark Yellow Urine Appearance Clear (Clear) Urine pH 5.0 (4.5-7.5) Ur Specific Warren 1.022 (1.000-1.030) Urine Protein Negative (Negative) Urine Glucose (UA) Negative (Negative) Urine Ketones Trace H (Negative) Urine Blood 1+ H (Negative) Urine Nitrite Negative (Negative) Urine Bilirubin Negative (Negative) Urine Urobilinogen Negative (Negative) Ur Leukocyte Esterase Negative (Negative) Urine WBC (Auto) 1-5 (0-5) /hpf Urine RBC (Auto) 10-30 H (0-4) /hpf U Hyaline Cast (Auto) 0 (0-5) /lpf U Epithel Cells (Auto) 0-5 (0-5) /lpf Urine Bacteria (Auto) Negative (Negative) Administered Medications Fentanyl Citrate (Fentanyl Citrate) 50 mcg IV Q15M PRN PRN Reason: Pain Stop: 02/22/20 15:04 Last Admin: 02/08/20 15:23 Dose: 50 mcg Documented by: [id number] Discontinued Medications Sodium Chloride (Nss) 500 mls @ 999 mls/hr IV .Q31M PATTIE Stop: 02/08/20 15:45 Last Infusion: 02/08/20 15:54 Dose: 0 mls/hr Documented by: [id number] Admin: 02/08/20 15:23 Dose: 999 mls/hr Documented by: [id number] Ondansetron HCl (Zofran) 4 mg IV NOW STA Stop: 02/08/20 15:06 Last Admin: 02/08/20 15:23 Dose: 4 mg Documented by: [id number] Imaging Data Radiologist's Impression: XR hip LT 2V w pelvis CLINICAL HISTORY: fall. Left hip pain. COMPARISON STUDY: None. FINDINGS: Slightly displaced intertrochanteric fracture of the proximal left femur. No dislocation. No fractures identified within the pelvis or right hip. IMPRESSION: Slightly displaced intertrochanteric fracture of the proximal left femur. ACT 112: Negative or not required by law. Electronically signed by: Yuri Martin M.D. 02/08/2020 3:47 PM Dictated: 02/08/20 1545 Transcribed: 02/08/[address] head/brain wo con CT DOSE: HISTORY: Trauma. Mental status change. fall TECHNIQUE: Multiaxial CT images of the head were performed without the use of intravenous contrast. A dose lowering technique was utilized adhering to the principles of ALARA. Comparison: 10/13/2017 Findings: The paranasal sinuses and mastoid air cells are clear. The calvarium and skull base are intact. The ventricles and sulci are within normal limits. There is no mass, hematoma, midline shift, or acute infarct. Findings of considerable atrophy as well as extensive chronic small vessel change throughout both cerebral hemispheres. 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 Impression: No acute intracranial abnormality. Atrophy and considerable age-related chronic small vessel change. ACT 112: Negative or not required by law. The above report was generated using voice recognition software. It may contain grammatical, syntax or spelling errors. Electronically signed by: Dipesh Graham M.D. 02/08/2020 4:33 PM Dictated: 02/08/20 1631 Transcribed: 02/08/20 1631 XR chest 1V portable CLINICAL HISTORY: fall trauma. Pain. COMPARISON STUDY: 10/14/2017 FINDINGS: Mild stable cardiomegaly post median sternotomy. Lungs are clear. Diaphragms are smooth. IMPRESSION: No acute process. ACT 112: Negative or not required by law. The above report was generated using voice recognition software. It may contain grammatical, syntax or spelling errors. Electronically signed by: Dipesh Graham M.D. 02/08/2020 3:45 PM Dictated: 02/08/20 1545 Transcribed: 02/08/[address] SCAN OF THE CERVICAL SPINE CLINICAL HISTORY: Fall. COMPARISON STUDY: No priors. TECHNIQUE: CT scan of the cervical spine is performed from the skull base to the upper thoracic spine. Images are reviewed in the axial, sagittal, and coronal planes. IV contrast was not administered for this examination. A dose lowering technique was utilized adhering to the principles of ALARA. CT DOSE: 1078.11 mGy.cm FINDINGS: Skeletal structures: The skeletal structures are osteopenic. There is no evidence of fracture or subluxation involving the cervical spine. Vertebral body height is maintained. Minimal anterolisthesis is noted at C7-T1. Alignment is otherwise preserved. Anterior osteophytes are seen throughout. The odontoid process and lateral masses are intact. The atlantoaxial articulation is preserved noting productive degenerative change. The spinous processes appear intact. There is moderate multilevel cervical spondylosis. Uncovertebral and facet arthropathy contribute to neural foraminal stenosis at several levels. There is a healed right posterior first rib fracture. Intervertebral discs: There is moderate to severe disc space narrowing at C5-C6. Moderate disc space narrowing is noted at C4-C5. Central canal: Large posterior disc osteophyte complexes at C4-C5 and C5-C6 likely contribute to acquired compromise of the central canal. Soft tissues: The prevertebral and paraspinous soft tissues are within normal limits. There is atherosclerotic calcification of the carotid bulbs. Calvarium: The visualized calvarium at the skull base appears intact. Brain parenchyma: Partially visualized brain parenchyma the skull base is within normal limits. Sinuses and mastoids: The visualized paranasal sinuses are clear. The mastoid air cells are well pneumatized. Lung apices: Clear as visualized. IMPRESSION: 1. There is no evidence of fracture or subluxation involving the cervical spine. 2. Osteopenia and spondylotic change as above. ACT 112: Negative or not required by law. Electronically signed by: Cooper Cisse M.D. 02/08/2020 4:36 PM Dictated: 02/08/20 1632 Transcribed: 02/08/20 1632 Blood Pressure Blood Pressure Findings: Elevated blood pressure Blood Pressure Disposition: further management by hospitalist Discharge Plan Visit Data Chief Complaint: Hip Pain Stated Complaint: FALL, L HIP PAIN ED Provider: Kishan Bedoya Discharge Problem: Subcapital fracture of left hip, Fall, Head injury Patient Disposition: Being Evaluated by Hospitalist Condition: Good Forms Stand Alone Forms: My [facility] [place] [employer] Prescriptions Prescriptions: No Action warfarin 5 mg Tablet 5 mg PO PM Qty: 0 RF: 0 rosuvastatin 20 mg Tablet 20 mg PO Q OTHER DAY Qty: 0 RF: 0 aspirin 81 mg Tablet,Delayed Release (Dr/Ec) 81 mg PO QAM Qty: 0 RF: 0 metoprolol tartrate 25 mg Tablet 25 mg PO QAM Qty: 0 RF: 0 ascorbic acid (vitamin C) [Vitamin C] 500 mg Tablet 500 mg PO QAM Qty: 0 RF: 0 lisinopril 10 mg Tablet 10 mg PO QAM Qty: 0 RF: 0 coQ10 (ubiquinol) 200 mg Capsule 200 mg PO QAM Qty: 0 RF: 0 vitamin B complex Tablet 1 tab PO QAM RF: 0 loratadine 10 mg Tablet 10 mg PO QAM RF: 0 cholecalciferol (vitamin D3) [Vitamin D3] 25 mcg (1,000 unit) Tablet 25 mcg PO QAM RF: 0 omega 8-edx-jjg-fish oil [Fish Oil] 1,200 (144-216) mg Capsule 1 cap PO QAM RF: 0 Referrals Referrals: Jamison Reynolds DO [Primary Care Provider] - Discharge Problem: Subcapital fracture of left hip Qualifiers: Encounter type: initial encounter Fracture type: closed Qualified Code(s): S72.012A - Unspecified intracapsular fracture of left femur, initial encounter for closed fracture Fall Qualifiers: Encounter type: initial encounter Qualified Code(s): W19.XXXA - Unspecified fall, initial encounter Head injury Qualifiers: Encounter type: initial encounter Qualified Code(s): S09.90XA - Unspecified injury of head, initial encounter
[2020-02-08 17:50] LABS: Appearance Urine Clear (Clear); Bacteria Urine Automated Negative (Negative); Bilirubin Urine Negative (Negative); Blood Urine 1+ (Negative); Cast Urine Automated 0 /lpf (0-5); Color Urine Dark Yellow; Epithelial Cell Urine Auto 0-5 /lpf (0-5); Glucose Urine UA Negative (Negative); Ketones Urine Trace (Negative); Leukocyte Esterase Urine Negative (Negative); Nitrite Urine Negative (Negative); Protein Urine Negative (Negative); Specific Gravity Urine 1.022 (1.000-1.030); Urobilinogen Urine Negative (Negative)
--- NOTE | 2020-02-08 18:54 | History & Physical Report ---
Date of Service February 08, 2020 Assessment & Plan (1) Subcapital fracture of left hip: Left Hip fracture S/P mechanical Fall CT head:No acute intracranial abnormality. Atrophy and considerable age-related chronic small vessel change. Neck CT:There is no evidence of fracture or subluxation involving the cervical spine. Osteopenia and spondylotic change as above. Hip X ray:Slightly displaced intertrochanteric fracture of the proximal left femur. Pain control, IV fluids Type and cross Given complicated cardiac history, needs preop clearance with cardiology Cardiology consulted DVT Px on IV heparin Orthopedics consulted NPO after midnight bowel regimen to prevent constipation PT/OT as able May need rehab Monitor for for post op anemia Preop COVID screen ordered Hypertensive urgency H/O HTN Likely situational secondary to pain Continue lisinopril, metoprolol PO Hydralazine PRN Hyponatremia Sodium 134 Gentle IV fluids Monitor sodium levels CAD S/P CABG X 5 H/O Ischemic cardiomyopathy 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 Continue aspirin, statin, metoprolol, lisinopril H/O rheumatic aortic valve disease S/P mechanical aortic valve on chronic Coumadin therapy INR:2.5 Hold Coumadin for now On IV heparin Atrial fibrillation Rate controlled Continue metoprolol On IV heparin for anticoagulation Monitor INR Hyperlipidemia On Statin DVT Px: on IV heparin Code Status Full Code As per my discussion with the patient History of Present Illness Chief Complaint: Left Hip Pain Primary Care Provider: Jamison Reynolds DO Patient is an 84-year-old male with history of CAD S/P CABG X 5, H/O rheumatic aortic valve disease S/P mechanical aortic valve on chronic Coumadin therapy, atrial fibrillation, ischemic cardiomyopathy, hypertension, hyperlipidemia, chronic intraventricular conduction delay, ectasia of the ascending aorta and other medical problems presents with history of left hip pain after sustaining a mechanical fall while exercising today. He states falling on his left side landing on his left hip and also admits to have bumped his head. Left hip pain is 3/10, worsens with movement, associated with numbness and tingling in his left leg. CT head showed no acute intracranial abnormality. Hip x-ray showed slightly displaced intertrochanteric fracture of the proximal left femur. Denies any history of chest pain, SOB, palpitations, orthopnea, dizziness, diaphoresis, cough, wheezing, hemoptysis, fever, chills, LOC, headache, change in vision, bowel or bladder incontinence, nausea, vomiting, abdominal pain, blood in stools, diarrhea, dysuria, hematuria, recent change in medications. Allergies Allergy/AdvReac Type Severity Reaction Status Date / Time Sulfa (Sulfonamide AdvReac Intermediate Unknown Unverified 02/08/20 15:14 Antibiotics) Home Medications Home Medications Medication Instructions Recorded Confirmed Type rosuvastatin 20 mg PO Q OTHER DAY #0 tab 12/06/14 02/08/20 History warfarin 5 mg PO PM #0 tab 12/06/14 02/08/20 History ascorbic acid (vitamin C) [Vitamin 500 mg PO QAM #0 03/28/17 02/08/20 History C] aspirin 81 mg PO QAM #0 03/28/17 02/08/20 History coQ10 (ubiquinol) 200 mg PO QAM #0 03/28/17 02/08/20 History lisinopril 10 mg PO QAM #0 tab 03/28/17 02/08/20 History metoprolol tartrate 25 mg PO QAM #0 tab 03/28/17 02/08/20 History cholecalciferol (vitamin D3) 25 mcg PO QAM 02/08/20 02/08/20 History [Vitamin D3] loratadine 10 mg PO QAM 02/08/20 02/08/20 History omega 0-yzl-rsc-fish oil [Fish Oil] 1 cap PO QAM 02/08/20 02/08/20 History vitamin B complex 1 tab PO QAM 02/08/20 02/08/20 History Past Med/Surg History Medical History CAD (coronary artery disease) HTN (hypertension) (Chronic) Surgical History 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) S/P CABG x 5 (Resolved) Family History Unknown Family history non-contributory Social History Preferred Language: Ukrainian Communication Ability: Effective Security Strategist Required: No Beliefs That Will Affect Care: None Current Living Situation: Alone Current Living Situation Comment: Pt lives at the [facility]- Independent Living Other Information That Helps Us Care for You: No Feels Safe at Home: Yes Safety Concerns: Feels Safe At This Time Smoking Status: Former smoker Do You Dip or Chew Tobacco: No ; Second Hand Exp osure: No ; Tobacco Cessation Education Requested by Patient: No Hx Alcohol Use: Yes Alcohol type: beer and wine Hx Substance Use: No Review of Systems Review of Systems: All systems reviewed & are unremarkable except as noted in HPI & below Physical Exam Physical Exam: Physical Exam: Vitals signs as noted above General Appearance:Moderately built and nourished, no apparent distress Head: normocephalic, Atraumatic Eyes: normal inspection, EOMI Neck: supple, Trachea midline Respiratory/Chest: Normal breath sounds, CTA, No accessory muscle use Cardiovascular: Aortic click, irregularly irregular, no audible murmur Abdomen/GI:Soft, Non tender, Bowel sounds present Extremities/Musculoskelatal:normal inspection, no edema, left hip tender, externally rotated, shortened. Neurologic/Psych:AAOX3, grossly no focal neurological deficits Skin: normal color, warm Results & Data Results & Data ([facility]) Vital Signs (Past 12 Hours) Vital Signs Temp Pulse Resp BP Pulse Ox 02/08/20 18:01 54 L 18 175/83 H 91 02/08/20 17:40 59 L 17 97 02/08/20 17:01 68 15 176/97 H 97 02/08/20 16:31 68 15 177/82 H 97 02/08/20 16:29 57 L 13 169/96 H 98 02/08/20 15:33 36.7 C 69 16 189/101 H 99 02/08/20 15:32 99 02/08/20 15:31 60 17 189/89 H 97 Laboratory Results Short CBC 02/08/20 Range/Units 15:16 WBC 8.52 (4.8-10.8) K/uL Hgb 12.9 L (14.0-18.0) g/dL Hct 39.6 L (42-52) % Plt Count 203 (130-400) K/uL BMP 02/08/20 15:16 Sodium 134 L Potassium 3.9 Chloride 102 Carbon Dioxide 25 BUN 13 Creatinine 0.73 Glucose 111 H Calcium 9.0 Liver Function 02/08/20 Range/Units 15:16 Total Bilirubin 1.1 H (0.2-1) mg/dl AST 31 (15-37) U/L ALT 27 (12-78) U/L Alkaline Phosphatase 107 (45-117) U/L Albumin 3.7 (3.4-5.0) gm/dl Urine 02/08/20 Range/Units 17:36 Urine Color Dark Yellow Urine Appearance Clear (Clear) Urine pH 5.0 (4.5-7.5) Ur Specific [place] 1.022 (1.000-1.030) Urine Protein Negative (Negative) Urine Glucose (UA) Negative (Negative) Diagnostic Findings CT head: No acute intracranial abnormality. Atrophy and considerable age-related chronic small vessel change. Left Hip X ray: Slightly displaced intertrochanteric fracture of the proximal left femur. ECG Additional Comments: EKG: Atrial fibrillation with premature ventricular complexes, LAD, left bundle branch block, QTC 473. Code Status & VTE Plan VTE Prophylaxis Plan VTE Prophylaxis will be ordered: Yes (1) Subcapital fracture of left hip Encounter type: initial encounter Fracture type: closed Qualified Code(s): S72.012A - Unspecified intracapsular fracture of left femur, initial encounter for closed fracture
[2020-02-08] MEDS ORDERED: NALOXONE HCL 0.4 MG/1 ML VIAL/CARP IV PRN (19:30)
[2020-02-08] MEDS ORDERED: POLYETHYLENE (MIRALAX) 17 GM PACK PO PRN (19:30)
[2020-02-08] MEDS ORDERED: Heparin IV Standard *NO* Bolus IV SCH (19:30)
[2020-02-08] MEDS ORDERED: bisacodyL 10 MG SUPP PR PRN (19:30)
[2020-02-08] MEDS ORDERED: PROMETHAZINE HCL 6.25 MG in SODIUM CHLORIDE 0.9% 50 ML IV PRN (19:30)
[2020-02-08] MEDS ORDERED: MAGNESIUM HYDROXIDE SUSP 30 ML UDC PO PRN (19:30)
[2020-02-08] MEDS: HEPARIN SODIUM/DEXTROSE 25,000 UNITS/500 ML BAG IV SCH (20:04)
[2020-02-08] MEDS ORDERED: HydrALAZINE 10 MG TAB PO PRN (20:05)
[2020-02-08] MEDS: MoRPHine SULFATE 2 MG/ML CARP IV PRN (21:01)
[2020-02-08] MEDS: DOCUSATE SODIUM/SENNA 50/8.6MG TAB PO SCH (21:11)
[2020-02-08] MEDS: OXYCODONE HCL IR 5 MG TAB (IMMEDIATE RELEASE) PO PRN (22:32)
[2020-02-08] MEDS: ACETAMINOPHEN 325 MG TAB PO PRN (22:32)
--- NOTE | 2020-02-08 23:49 | Orthopedic Consultation ---
Date of Consultation February 08, 2020 Assessment & Plan (1) Intertrochanteric fracture of left femur: 84-year-old male with history of CAD S/P CABG X 5, H/O rheumatic aortic valve disease S/P mechanical aortic valve on chronic Coumadin therapy, atrial fibrillation, ischemic cardiomyopathy, chronic intraventricular conduction delay, ectasia of the ascending aorta and other managed medical problems sustained standing height fall resulting in unstable left intertrochanteric fracture that is best treated with closed or open reduction and intramedullary fixation as soon as medically optimized. He is tentatively posted for surgery 02/09/2020, pending cardiac evaluation and reversal of his warfarin therapy to a safer INR for hip fracture surgery. I discussed the fracture type, routine treatment for hip fractures, expected rehabilitation and outcomes with the patient and his son Anthony. We discussed the risks include but are not limited to infection, neurovascular injury, arthrofibrosis of the hip, pain syndromes, VTE, and medical complications from anesthesia and inpatient hospitalization. We also discussed his anticoagulation and plan for reversal, guided by cardiology recommendations. I did discuss that he has a high likelihood of needing a blood transfusion throughout his stay. The patient and his son asked appropriate questions, demonstrated good understanding of the need for surgery, and are agreeable to proceed. Surgery will involve limited approach but expect moderate blood loss from large bone fracture and intramedullary device. Type and cross, please. Chronic warfarin with therapeutic INR: If acceptable by cardiology, please consider low dose Vitamin K therapy for reversal to target of INR 1.7 or less. Agree with heparin bridge and holding warfarin. NPO at midnight Bedrest - position LLE with pillows to comfort Please contact orthopedic surgery and anesthesia with cardiac clearance Present on Admission?: Yes History of Present Illness Reason for Consultation: left hip fx Attending Physician: Akash Lobato MD History of Present Illness 84-year-old male with history of CAD S/P CABG X 5, H/O rheumatic aortic valve disease S/P mechanical aortic valve on chronic Coumadin therapy, atrial fibrillation, ischemic cardiomyopathy, hypertension, hyperlipidemia, chronic intraventricular conduction delay, ectasia of the ascending aorta and other medical problems sustained standing height fall onto left hip, resulting in immediate pain and inability to bear weight. Denies antecedent hip pain. 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 He has been stable health recently. He was performing a toe touch routine as part of an exercise group at his home, when he fell onto his hip. He denies other sources of pain. Allergies Allergy/AdvReac Type Severity Reaction Status Date / Time Sulfa (Sulfonamide AdvReac Intermediate Unknown Unverified 02/08/20 15:14 Antibiotics) Home Medications Home Medications Medication Instructions Recorded Confirmed Type rosuvastatin 20 mg PO Q OTHER DAY #0 tab 12/06/14 02/08/20 History warfarin 5 mg PO PM #0 tab 12/06/14 02/08/20 History ascorbic acid (vitamin C) [Vitamin 500 mg PO QAM #0 03/28/17 02/08/20 History C] aspirin 81 mg PO QAM #0 03/28/17 02/08/20 History coQ10 (ubiquinol) 200 mg PO QAM #0 03/28/17 02/08/20 History lisinopril 10 mg PO QAM #0 tab 03/28/17 02/08/20 History metoprolol tartrate 25 mg PO QAM #0 tab 03/28/17 02/08/20 History cholecalciferol (vitamin D3) 25 mcg PO QAM 02/08/20 02/08/20 History [Vitamin D3] loratadine 10 mg PO QAM 02/08/20 02/08/20 History omega 0-xsy-mep-fish oil [Fish Oil] 1 cap PO QAM 02/08/20 02/08/20 History vitamin B complex 1 tab PO QAM 02/08/20 02/08/20 History Patient History Medical History (Updated 02/08/20 @ 23:49 by Freeman Rodriguez) CAD (coronary artery disease) HTN (hypertension) (Chronic) Intertrochanteric fracture of left femur (Acute) Surgical History 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) S/P CABG x 5 (Resolved) Family History Unknown Family history non-contributory Social History Preferred Language: Lao Communication Ability: Effective Flour Worker Required: No Beliefs That Will Affect Care: None Current Living Situation: Alone Current Living Situation Comment: Pt lives at the [facility]- Independent Living Other Information That Helps Us Care for You: No Feels Safe at Home: Yes Safety Concerns: Feels Safe At This Time Smoking Status: Former smoker Do You Dip or Chew Tobacco: No ; Second Hand Exposure: No ; Tobacco Cessation Education Requested by Patient: No Hx Alcohol Use: Yes Alcohol type: beer and wine Hx Substance Use: No Review of Systems Review of Systems: All systems reviewed & are unremarkable except as noted in HPI & below Physical Exam Constitutional: well developed and well nourished; no acute distress and not intoxicated appearing ENMT: external ear and nose normal, oropharynx normal Respiratory: normal respiratory effort; no respiratory distress Cardiovascular: Extremities: normal capillary refill; no edema Varicose veins throughout the bilateral lower extremities. Palpable DP and PT pulses in the left lower extremity. Musculoskeletal: LLE: The affected extremity is shortened and externally rotated, as expected. The skin about the hip appears to be atraumatic. He has positive active EHL, dorsiflexion, plantarflexion. Again, reduced light touch sensation to the bilateral feet from neuropathy. He does have sensation to the medial lateral left leg. He has a palpable posterior tibial pulse. RLE: The unaffected extremity appears to be without evidence of trauma. He is neurovascular intact. Skin: no rashes, warm and dry Neurologic: Reduced light touch sensation to bilateral feet. He says some discriminatory sensation in his legs. Psychiatric: A+Ox3, euthymic affect Results & Data ([facility]) Vital Signs (Past 12 Hours) Vital Signs Temp Pulse Pulse Resp BP BP Pulse Ox 02/08/20 19:30 36.6 C 64 18 188/85 H 96 02/08/20 18:31 63 17 162/89 H 97 02/08/20 18:01 54 L 18 175/83 H 91 02/08/20 17:40 59 L 17 97 02/08/20 17:01 68 15 176/97 H 97 02/08/20 16:31 68 15 177/82 H 97 02/08/20 16:29 57 L 13 169/96 H 98 02/08/20 15:33 36.7 C 69 16 189/101 H 99 02/08/20 15:32 99 02/08/20 15:31 60 17 189/89 H 97 Laboratory Tests 02/09/20 02/09/20 01:56 01:56 Hgb 11.8 L Hct 36.3 L PT 30.3 H INR 3.0 H PG Care Time/CCT Total # of Minutes Spent Total Time Spent with Patient: Total time spent is greater than 50% in coordination of care (as documented) at patient's floor/unit and/or counseling patient: Coding Level of Care Code 70172 Initial Inpt Care Lvl 3 Diagnoses Intertrochanteric fracture of left femur S72.142A Encounter type: initial encounter Fracture alignment: displaced Fracture type: closed (1) Intertrochanteric fracture of left femur Encounter type: initial encounter Fracture alignment: displaced Fracture type: closed Qualified Code(s): S72.142A - Displaced intertrochanteric fracture of left femur, initial encounter for closed fracture
[2020-02-09] MEDS: MoRPHine SULFATE 2 MG/ML CARP IV PRN ×2 (00:42→11:15)
[2020-02-09 02:16] LABS: Hematocrit (blood only) 36.3 % (42-52); Hemoglobin 11.8 g/dL (14.0-18.0); Mean Corpuscular Hemoglobin 26.9 pg (25-34); Mean Corpuscular Hgb Conc 32.5 g/dL (32-36); Mean Corpuscular Volume 82.7 fL (80-100); Mean Platelet Volume 10.3 fL (7.4-10.4); Platelet Count 154 K/uL (130-400); RDW Coefficient of Variation 13.8 % (11.5-14.5); RDW Standard Deviation 41.9 fL (36.4-46.3); Red Blood Count 4.39 M/uL (4.7-6.1); White Blood Count 12.29 K/uL (4.8-10.8)
[2020-02-09 02:37] LABS: Partial Thromboplastin Ratio 3.3; Prothrombin Time 30.3 Seconds (9.0-12.0)
[2020-02-09 02:39] LABS: Partial Thromboplastin Time 91.1 Seconds (21.0-31.0)
[2020-02-09 02:40] LABS: BUN Creatinine Ratio 18.6 (10-20); Calcium 8.5 mg/dl (8.5-10.1); Creatinine Clr Calc Pharmacy 86.1 ml/min; Est GFR (African American) 104.3; Magnesium 2.1 mg/dl (1.8-2.4); Potassium 4.6 mmol/L (3.5-5.1)
[2020-02-09 03:05] LABS: Basophils # (auto) 0.02 K/uL (0-0.2); Basophils % (auto) 0.2 %; Echinocytes 1+; Eosinophils # (auto) 0.09 K/uL (0-0.5); Eosinophils % (auto) 0.7 %; Immature Granulocytes # (auto) 0.02 K/uL (0.00-0.02); Immature Granulocytes % (auto) 0.2 %; Lymphocytes # (auto) 0.85 K/uL (1.2-3.4); Lymphocytes % (auto) 6.9 %; Monocytes # (auto) 0.53 K/uL (0.11-0.59); Monocytes % (auto) 4.3 %; Neutrophils # (auto) 10.78 K/uL (1.4-6.5); Neutrophils % (auto) 87.7 %; Ovalocytes 1+
[2020-02-09] MEDS: SODIUM CHLORIDE 0.9% 1000ML 1,000 ML IV SCH ×2 (04:27→19:26)
[2020-02-09] MEDS ORDERED: BUPIVACAINE 0.5 % 5 MG/1 ML PF 10ML VIAL ONE (07:38)
[2020-02-09] MEDS ORDERED: SODIUM CHLORIDE 0.9% 250 ML IV PRN (07:48)
[2020-02-09] MEDS: LORATADINE 10 MG TAB PO SCH (08:52)
[2020-02-09] MEDS: ASPIRIN 81 MG ECTAB PO SCH (08:52)
[2020-02-09] MEDS: lisinopriL 10 MG TAB PO SCH (08:52)
[2020-02-09] MEDS: METOPROLOL TARTRATE 25 MG TAB PO SCH (08:52)
[2020-02-09] MEDS: CHOLECALCIFEROL 1,000 UNITS 25 MCG TAB PO SCH (08:52)
[2020-02-09 09:38] LABS: Partial Thromboplastin Ratio 3.4
--- NOTE | 2020-02-09 09:58 | Cardiology Consultation ---
Date of Consultation February 09, 2020 Assessment & Plan (1) Intertrochanteric fracture of left femur: (2) CAD (coronary artery disease): (3) Fall: (4) Aortic valve replaced: (5) S/P CABG x 5: This is an elderly patient who had a mechanical fall and broke his hip that will need surgical fixation. Patient has a history of a mechanical aortic valve and according to our records he does not have a a mitral valve replacement. He also has ischemic heart disease with previous coronary artery bypass surgery and a history of a previous CVA. By geriatric sensitive perioperative risk assessment the patient has a 4.1% risk with the surgery and therefore he should proceed. His INR today is 3.1. He will need a bridge with heparin before and after surgery. I will give him oral vitamin K today and his INR will be rechecked in the morning. It should be low enough by morning to proceed with surgery tomorrow. We will follow along with you during his hospital stay. Continue to hold warfarin until after his surgery. History of Present Illness Attending Physician: Ifeanyi Crowder MD History of Present Illness The patient is an elderly 84-year-old gentleman who had a mechanical fall and fractured his left hip. We have been asked to do a cardiac risk assessment as the patient has a history of ischemic heart disease and previous mechanical aortic valve replacement. He is on long-term anticoagulation. He has had no recent cardiac symptoms. He denies syncope or dizziness. He has had no chest pain or shortness of breath. PAST MEDICAL HISTORY: 1.Coronary artery disease status post CABG x5. 2.History of rheumatic aortic valve disease, status post mechanical aortic valve replacement, on chronic Coumadin therapy. 3.Permanent atrial fibrillation. 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 6.Hypertension. 7.Hyperlipidemia. 8.Chronic intraventricular conduction delay. Allergies Allergy/AdvReac Type Severity Reaction Status Date / Time Sulfa (Sulfonamide AdvReac Intermediate Unknown Unverified 02/08/20 15:14 Antibiotics) Home Medications Home Medications Medication Instructions Recorded Confirmed Type rosuvastatin 20 mg PO Q OTHER DAY #0 tab 12/06/14 02/08/20 History warfarin 5 mg PO PM #0 tab 12/06/14 02/08/20 History ascorbic acid (vitamin C) [Vitamin 500 mg PO QAM #0 03/28/17 02/08/20 History C] aspirin 81 mg PO QAM #0 03/28/17 02/08/20 History coQ10 (ubiquinol) 200 mg PO QAM #0 03/28/17 02/08/20 History lisinopril 10 mg PO QAM #0 tab 03/28/17 02/08/20 History metoprolol tartrate 25 mg PO QAM #0 tab 03/28/17 02/08/20 History cholecalciferol (vitamin D3) 25 mcg PO QAM 02/08/20 02/08/20 History [Vitamin D3] loratadine 10 mg PO QAM 02/08/20 02/08/20 History omega 8-oxr-euz-fish oil [Fish Oil] 1 cap PO QAM 02/08/20 02/08/20 History vitamin B complex 1 tab PO QAM 02/08/20 02/08/20 History Patient History Medical History (Updated 02/09/20 @ 15:36 by Michocaano Eastman MD) Atrial fibrillation CAD (coronary artery disease) Cranial nerve palsy (Inactive) CVA (cerebral vascular accident) (Inactive) HTN (hypertension) (Chronic) Intertrochanteric fracture of left femur (Acute) Family History Unknown Family history non-contributory Social History Preferred Language: Kyrgyz Communication Ability: Effective Quality Control Head Required: No Beliefs That Will Affect Care: None Current Living Situation: Alone Current Living Situation Comment: Pt lives at the [facility] Other Information That Helps Us Care for You: No Feels Safe at Home: Yes Safety Concerns: Feels Safe At This Time Smoking Status: Former smoker Do You Dip or Chew Tobacco: No ; Second Hand Exposure: No ; Tobacco Cessation Education Requested by Patient: No Hx Alcohol Use: Yes Alcohol type: beer and wine Hx Substance Use: No Review of Systems Review of Systems: All systems reviewed & are unremarkable except as noted in HPI & below Nothing additional to add. Physical Exam Physical Exam: General: no acute distress and stated age Head: normocephalic, no masses, lesions, tenderness or abnormalities Eyes: conjunctiva are pink and non-injected, sclera clear Neck: supple, no adenopathy, no bruits, normal jugular venous pulse, no hepatojugular reflux Chest: normal shape and normal respiratory effort Lungs: clear to auscultation and percussion Cardiac Exam: - regular rate & rhythm, mechanical S2- normal S1, normal S2 Pulses: 2(+) throughout Abdomen: abdomen soft, non-tender, no abnormal masses and no hepatosplenomegaly Musculoskeletal: no gait disturbance, no joint inflammation, no deforming arthritis Extremities: no edema and no cyanosis Neuro: grossly normal exam Results & Data ([facility]) Vital Signs (Past 12 Hours) Vital Signs Temp Pulse Pulse Resp BP Pulse Ox 02/09/20 08:00 36.8 C 56 L 18 158/69 H 96 02/09/20 03:38 36.6 C 51 L 19 161/76 H 93 02/09/20 01:23 55 L 02/08/20 23:48 36.5 C 55 L 20 137/83 96 Laboratory Results Laboratory Results - last 24 hr 02/08/20 02/08/20 02/08/20 15:16 15:16 15:16 WBC 8.52 RBC 4.77 Hgb 12.9 L Hct 39.6 L MCV 83.0 MCH 27.0 MCHC 32.6 RDW Std Deviation 43.1 RDW Coeff of Miller 14.1 Plt Count 203 MPV 10.0 Immature Gran % (Auto) 0.5 Neut % (Auto) 72.2 Lymph % (Auto) 16.5 [place] % (Auto) 7.0 Eos % (Auto) 3.4 Baso % (Auto) 0.4 Neut # (Auto) 6.15 Lymph # (Auto) 1.41 [place] # (Auto) 0.60 H Eos # (Auto) 0.29 Baso # (Auto) 0.03 Immature Gran # (Auto) 0.04 H Ovalocytes Echinocytes PT 25.2 H INR 2.5 H APTT 29.9 PTT Ratio 1.1 Sodium 134 L Potassium 3.9 Chloride 102 Carbon Dioxide 25 Anion Gap 7.0 BUN 13 Creatinine 0.73 Est Cr Clr Drug Dosing 76.7 Est GFR ( Amer) 99.4 Est GFR (Non-Af Amer) 85.8 BUN/Creatinine Ratio 18.2 Glucose 111 H Calcium 9.0 Magnesium Total Bilirubin 1.1 H AST 31 ALT 27 Alkaline Phosphatase 107 Total Protein 7.2 Albumin 3.7 Globulin 3.5 Albumin/Globulin Ratio 1.1 Lipase 106 25-OH Vitamin D Total Urine Color Urine Appearance Urine pH Ur Specific [place] Urine Protein Urine Glucose (UA) Urine Ketones Urine Blood Urine Nitrite Urine Bilirubin Urine Urobilinogen Ur Leukocyte Esterase Urine WBC (Auto) Urine RBC (Auto) U Hyaline Cast (Auto) U Epithel Cells (Auto) Urine Bacteria (Auto) COVID-19 PCR SARS-CoV-2 RNA (RT-PCR) Blood Type Blood Type Recheck Antibody Screen Crossmatch 02/08/20 02/08/20 02/08/20 17:36 19:55 21:00 WBC RBC Hgb Hct MCV MCH MCHC RDW Std Deviation RDW Coeff of Miller Plt Count MPV Immature Gran % (Auto) Neut % (Auto) Lymph % (Auto) [place] % (Auto) Eos % (Auto) Baso % (Auto) Neut # (Auto) Lymph # (Auto) [place] # (Auto) Eos # (Auto) Baso # (Auto) Immature Gran # (Auto) Ovalocytes Echinocytes PT INR APTT PTT Ratio Sodium Potassium Chloride Carbon Dioxide Anion Gap BUN Creatinine Est Cr Clr Drug Dosing Est GFR ( Amer) Est GFR (Non-Af Amer) BUN/Creatinine Ratio Glucose Calcium Magnesium Total Bilirubin AST ALT Alkaline Phosphatase Total Protein Albumin Globulin Albumin/Globulin Ratio Lipase 25-OH Vitamin D Total Urine Color Dark Yellow Urine Appearance Clear Urine pH 5.0 Ur Specific [place] 1.022 Urine Protein Negative Urine Glucose (UA) Negative Urine Ketones Trace H Urine Blood 1+ H Urine Nitrite Negative Urine Bilirubin Negative Urine Urobilinogen Negative Ur Leukocyte Esterase Negative Urine WBC (Auto) 1-5 Urine RBC (Auto) 10-30 H U Hyaline Cast (Auto) 0 U Epithel Cells (Auto) 0-5 Urine Bacteria (Auto) Negative COVID-19 PCR SARS-CoV-2 RNA (RT-PCR) Cancelled Blood Type AB Positive Blood Type Recheck Antibody Screen NEGATIVE Crossmatch See Detail 02/08/20 02/09/20 02/09/20 21:00 01:56 01:56 WBC 12.29 H RBC 4.39 L Hgb 11.8 L Hct 36.3 L MCV 82.7 MCH 26.9 MCHC 32.5 RDW Std Deviation 41.9 RDW Coeff of Miller 13.8 Plt Count 154 MPV 10.3 Immature Gran % (Auto) 0.2 Neut % (Auto) 87.7 Lymph % (Auto) 6.9 [place] % (Auto) 4.3 Eos % (Auto) 0.7 Baso % (Auto) 0.2 Neut # (Auto) 10.78 H Lymph # (Auto) 0.85 L [place] # (Auto) 0.53 Eos # (Auto) 0.09 Baso # (Auto) 0.02 Immature Gran # (Auto) 0.02 Ovalocytes 1+ Echinocytes 1+ PT INR APTT PTT Ratio Sodium 133 L Potassium 4.6 D Chloride 99 Carbon Dioxide 29 Anion Gap 5.0 BUN 12 Creatinine 0.65 Est Cr Clr Drug Dosing 86.1 Est GFR ( Amer) 104.3 Est GFR (Non-Af Amer) 90.0 BUN/Creatinine Ratio 18.6 Glucose 135 H Calcium 8.5 Magnesium 2.1 Total Bilirubin AST ALT Alkaline Phosphatase Total Protein Albumin Globulin Albumin/Globulin Ratio Lipase 25-OH Vitamin D Total Urine Color Urine Appearance Urine pH Ur Specific [place] Urine Protein Urine Glucose (UA) Urine Ketones Urine Blood Urine Nitrite Urine Bilirubin Urine Urobilinogen Ur Leukocyte Esterase Urine WBC (Auto) Urine RBC (Auto) U Hyaline Cast (Auto) U Epithel Cells (Auto) Urine Bacteria (Auto) COVID-19 PCR NEGATIVE SARS-CoV-2 RNA (RT-PCR) Blood Type Blood Type Recheck Antibody Screen Crossmatch 02/09/20 02/09/20 02/09/20 01:56 01:56 01:56 WBC RBC Hgb Hct MCV MCH MCHC RDW Std Deviation RDW Coeff of Miller Plt Count MPV Immature Gran % (Auto) Neut % (Auto) Lymph % (Auto) [place] % (Auto) Eos % (Auto) Baso % (Auto) Neut # (Auto) Lymph # (Auto) [place] # (Auto) Eos # (Auto) Baso # (Auto) Immature Gran # (Auto) Ovalocytes Echinocytes PT 30.3 H INR 3.0 H APTT 91.1 H* PTT Ratio 3.3 Sodium Potassium Chloride Carbon Dioxide Anion Gap BUN Creatinine Est Cr Clr Drug Dosing Est GFR ( Amer) Est GFR (Non-Af Amer) BUN/Creatinine Ratio Glucose Calcium Magnesium Total Bilirubin AST ALT Alkaline Phosphatase Total Protein Albumin Globulin Albumin/Globulin Ratio Lipase 25-OH Vitamin D Total 33.4 Urine Color Urine Appearance Urine pH Ur Specific [place] Urine Protein Urine Glucose (UA) Urine Ketones Urine Blood Urine Nitrite Urine Bilirubin Urine Urobilinogen Ur Leukocyte Esterase Urine WBC (Auto) Urine RBC (Auto) U Hyaline Cast (Auto) U Epithel Cells (Auto) Urine Bacteria (Auto) COVID-19 PCR SARS-CoV-2 RNA (RT-PCR) Blood Type Blood Type Recheck AB Positive Antibody Screen Crossmatch 02/09/20 09:08 WBC RBC Hgb Hct MCV MCH MCHC RDW Std Deviation RDW Coeff of Miller Plt Count MPV Immature Gran % (Auto) Neut % (Auto) Lymph % (Auto) [place] % (Auto) Eos % (Auto) Baso % (Auto) Neut # (Auto) Lymph # (Auto) [place] # (Auto) Eos # (Auto) Baso # (Auto) Immature Gran # (Auto) Ovalocytes Echinocytes PT INR APTT 95.2 H* PTT Ratio 3.4 Sodium Potassium Chloride Carbon Dioxide Anion Gap BUN Creatinine Est Cr Clr Drug Dosing Est GFR ( Amer) Est GFR (Non-Af Amer) BUN/Creatinine Ratio Glucose Calcium Magnesium Total Bilirubin AST ALT Alkaline Phosphatase Total Protein Albumin Globulin Albumin/Globulin Ratio Lipase 25-OH Vitamin D Total Urine Color Urine Appearance Urine pH Ur Specific [place] Urine Protein Urine Glucose (UA) Urine Ketones Urine Blood Urine Nitrite Urine Bilirubin Urine Urobilinogen Ur Leukocyte Esterase Urine WBC (Auto) Urine RBC (Auto) U Hyaline Cast (Auto) U Epithel Cells (Auto) Urine Bacteria (Auto) COVID-19 PCR SARS-CoV-2 RNA (RT-PCR) Blood Type Blood Type Recheck Antibody Screen Crossmatch Medications Administered Current Inpatient Medications Acetaminophen (Tylenol) 650 mg PO Q4H PRN PRN Reason: Pain or Fever Stop: 03/09/20 19:29 Last Admin: 02/08/20 22:32 Dose: 650 mg Documented by: Aspirin (Ecotrin Ectab) 81 mg PO QAM PATTIE Stop: 03/10/20 08:59 Last Admin: 02/09/20 08:52 Dose: 81 mg Documented by: Bisacodyl (Dulcolax) 10 mg [place] DAILY PRN PRN Reason: Constipation Stop: 03/09/20 19:29 Fentanyl Citrate (Fentanyl Citrate) 50 mcg IV Q15M PRN PRN Reason: Pain Stop: 02/22/20 15:04 Last Admin: 02/08/20 18:25 Dose: 50 mcg Documented by: Hydralazine HCl (Apresoline) 5 mg PO Q6H PRN PRN Reason: Hypertension Stop: 03/09/20 20:14 Sodium Chloride (Nss 1000ml) 1,000 mls @ 50 mls/hr IV .Q20H [facility] Stop: 03/09/20 21:59 Last Admin: 02/09/20 04:27 Dose: 50 mls/hr Documented by: Heparin Sodium/Dextrose (Heparin Sodium/Dextrose) 25,000 units in 500 mls @ 24 mls/hr IV .[id number] [facility]; Protocol Stop: 03/09/20 19:29 Last Titration: 02/09/20 11:00 Dose: 1,050 units/hr, 21 mls/hr Documented by: Promethazine HCl 6.25 mg/ (Sodium Chloride) 50.25 mls @ 201 mls/hr IV Q6H PRN PRN Reason: Nausea And Vomiting Stop: 03/09/20 19:29 Sodium Chloride (Nss) 250 mls @ 15 mls/hr IV .[id number] PRN PRN Reason: For Transfusion Stop: 02/09/20 17:48 Lisinopril (Zestril) 10 mg PO [facility] Stop: 03/10/20 08:59 Last Admin: 02/09/20 08:52 Dose: 10 mg Documented by: Loratadine (Claritin) 10 mg PO [facility] Stop: 03/10/20 08:59 Last Admin: 02/09/20 08:52 Dose: 10 mg Documented by: Magnesium Hydroxide (Milk Of Magnesia) 30 ml PO DAILY PRN PRN Reason: Constipation Stop: 03/09/20 19:29 Metoprolol Tartrate (Lopressor) 25 mg PO [facility] Stop: 03/10/20 08:59 Last Admin: 02/09/20 08:52 Dose: 25 mg Documented by: Miscellaneous Information (Nursing To Pharmacy Communication) 1 ea N/A TODAY [facility] Stop: 03/10/20 11:59 Morphine Sulfate (Morphine Sulfate) 2 mg IV Q2H PRN PRN Reason: MODERATE Pain (Scale 4,5,6) Stop: 02/22/20 19:29 Last Admin: 02/09/20 11:15 Dose: 2 mg Documented by: Naloxone HCl (Narcan) 0.1 mg IV UD PRN PRN Reason: Opiate Overdose Stop: 03/09/20 19:29 Oxycodone HCl (Roxicodone Immediate Rel) 5 mg PO Q4H PRN PRN Reason: MODERATE Pain (Scale 4,5,6) Stop: 02/22/20 19:29 Last Admin: 02/08/20 22:32 Dose: 5 mg Documented by: Polyethylene Glycol (Miralax Powder Packet) 17 gm PO DAILY PRN PRN Reason: Constipation Stop: 03/09/20 19:29 Rosuvastatin Calcium (Crestor) 20 mg PO Q2D PATTIE Stop: 03/11/20 08:59 Senna/Docusate Sodium (Senokot S) 2 tab PO HS [facility] Stop: 03/09/20 20:59 Last Admin: 02/08/20 21:11 Dose: 2 tab Documented by: Vitamin D (Vitamin D3) 1,000 units PO QAM PATTIE Stop: 03/10/20 08:59 Last Admin: 02/09/20 08:52 Dose: 1,000 units Documented by: (1) Fall Encounter type: initial encounter Qualified Code(s): W19.XXXA - Unspecified fall, initial encounter (2) Intertrochanteric fracture of left femur Encounter type: initial encounter Fracture alignment: displaced Fracture type: closed Qualified Code(s): S72.142A - Displaced intertrochanteric fracture of left femur, initial encounter for closed fracture
[2020-02-09 10:01] LABS: Partial Thromboplastin Time 95.2 Seconds (21.0-31.0)
[2020-02-09] MEDS ORDERED: Nursing to Pharmacy Communication SCH ×2 (11:30→12:00)
[2020-02-09] MEDS ORDERED: PHYTONADIONE 5 MG TAB PO STA (11:43)
--- NOTE | 2020-02-09 15:37 | Anesthesiology Consultation ---
Date of Service February 09, 2020 Assessment & Plan (1) Encounter for pre-operative examination: Chart Review Chart Review: Acceptable Risk for Surgery and Patient NOT seen in Pre Admission Testing Consults Requested none Cardiology consult 02/09/2020: "This is an elderly patient who had a mechanical fall and broke his hip that will need surgical fixation. Patient has a history of a mechanical aortic valve and according to our records he does not have a a mitral valve replacement. He also has ischemic heart disease with previous coronary artery bypass surgery and a history of a previous CVA. By geriatric sensitive perioperative risk assessment the patient has a 4.1% risk with the surgery and therefore he should proceed. His INR today is 3.1. He will need a bridge with heparin before and after surgery. I will give him oral vitamin K today and his INR will be rechecked in the morning. It should be low enough by morning to proceed with surgery tomorrow. We will follow along with you during his hospital stay. Continue to hold warfarin until after his surgery." History Surgery Operation Date: 02/10/20 07:00 Proposed Procedures p Left Hip Troch Nail - Freeman Rodriguez Height/Weight Height: 5 ft 9 in Weight: 73.9 kg Allergies Allergy/AdvReac Type Severity Reaction Status Date / Time Sulfa (Sulfonamide AdvReac Intermediate Unknown Unverified 02/08/20 15:14 Antibiotics) Medications Home Medications Medication Instructions Recorded Confirmed Last Taken rosuvastatin 20 mg PO Q OTHER DAY #0 tab 12/06/14 02/08/20 02/08/20 warfarin 5 mg PO PM #0 tab 12/06/14 02/08/20 02/07/20 ascorbic acid (vitamin C) [Vitamin 500 mg PO QAM #0 03/28/17 02/08/20 02/08/20 C] aspirin 81 mg PO QAM #0 03/28/17 02/08/20 02/08/20 coQ10 (ubiquinol) 200 mg PO QAM #0 03/28/17 02/08/20 02/08/20 lisinopril 10 mg PO QAM #0 tab 03/28/17 02/08/20 02/08/20 metoprolol tartrate 25 mg PO QAM #0 tab 03/28/17 02/08/20 02/08/20 cholecalciferol (vitamin D3) 25 mcg PO QAM 02/08/20 02/08/20 02/08/20 [Vitamin D3] loratadine 10 mg PO QAM 02/08/20 02/08/20 02/08/20 omega 7-ioo-vyn-fish oil [Fish Oil] 1 cap PO QAM 02/08/20 02/08/20 02/08/20 vitamin B complex 1 tab PO QAM 02/08/20 02/08/20 02/08/20 Active Medications Generic Name Dose Route Start Last Admin Trade Name Freq PRN Reason Stop Dose Admin Acetaminophen 650 mg 02/08/20 19:30 02/08/20 22:32 Tylenol PO 03/09/20 19:29 650 mg Q4H PRN Administration Pain or Fever Aspirin 81 mg 02/09/20 09:00 02/09/20 08:52 Ecotrin Ectab PO 03/10/20 08:59 81 mg QAM PATTIE Administration Fentanyl Citrate 50 mcg 02/08/20 15:05 02/08/20 18:25 Fentanyl Citrate IV 02/22/20 15:04 50 mcg Q15M PRN Administration Pain Sodium Chloride 1,000 mls @ 50 mls/hr 02/08/20 22:00 02/09/20 04:27 Nss 1000ml IV 03/09/20 21:59 50 mls/hr .Q20H PATITE Administration Heparin Sodium/Dextrose 25,000 units in 500 mls @ 21 mls/hr 02/08/20 19:30 02/09/20 11:00 Heparin Sodium/Dextrose IV 03/09/20 19:29 1,050 units/hr .[id number] PATTIE 21 mls/hr Titration Protocol 1,050 UNITS/HR Lisinopril 10 mg 02/09/20 09:00 02/09/20 08:52 Zestril PO 03/10/20 08:59 10 mg QAM PATTIE Administration Loratadine 10 mg 02/09/20 09:00 02/09/20 08:52 Claritin PO 03/10/20 08:59 10 mg QAM PATTIE Administration Metoprolol Tartrate 25 mg 02/09/20 09:00 02/09/20 08:52 Lopressor PO 03/10/20 08:59 25 mg QAM PATTIE Administration Morphine Sulfate 2 mg 02/08/20 19:30 02/09/20 11:15 Morphine Sulfate IV 02/22/20 19:29 2 mg Q2H PRN Administration MODERATE Pain (Scale 4,5,6) Oxycodone HCl 5 mg 02/08/20 19:30 02/08/20 22:32 Roxicodone Immediate Rel PO 02/22/20 19:29 5 mg Q4H PRN Administration MODERATE Pain (Scale 4,5,6) Senna/Docusate Sodium 2 tab 02/08/20 21:00 02/08/20 21:11 Senokot S PO 03/09/20 20:59 2 tab HS PATTIE Administration Vitamin D 1,000 units 02/09/20 09:00 02/09/20 08:52 Vitamin D3 PO 03/10/20 08:59 1,000 units QAM PATTIE Administration Past Medical History Medical History (Updated 02/09/20 @ 15:36 by Michoacano Eastman MD) Atrial fibrillation CAD (coronary artery disease) Cranial nerve palsy (Inactive) CVA (cerebral vascular accident) (Inactive) HTN (hypertension) (Chronic) Intertrochanteric fracture of left femur (Acute) Past Family History Family History Unknown Family history non-contributory Past Surgical History Surgical History (Updated 02/09/20 @ 15:35 by Michoacano Eastman MD) Aortic valve replaced (Chronic) S/P CABG x 5 (Resolved) Social History Smoking Status: Former smoker Do You Dip or Chew Tobacco: No Hx Alcohol Use: Yes Alcohol type: beer and wine alcohol intake frequency: a few times a month Hx Substance Use: No Physical Exam Vital Signs Last Vital Signs Temp 37.2 C 02/09/20 11:47 Pulse 61 02/09/20 11:47 Resp 16 02/09/20 11:47 BP 150/76 H 02/09/20 11:47 Pulse Ox 95 02/09/20 11:47 Testing Laboratory Results 02/09/20 01:56 02/09/20 01:56 PT 30.3 Seconds (9.0-12.0) H 02/09/20 01:56 INR 3.0 (0.9-1.1) H 02/09/20 01:56 APTT 95.2 Seconds (21.0-31.0) H* 02/09/20 09:08 Urine Color Dark Yellow 02/08/20 17:36 Urine Appearance Clear (Clear) 02/08/20 17:36 Urine pH 5.0 (4.5-7.5) 02/08/20 17:36 Ur Specific [place] 1.022 (1.000-1.030) 02/08/20 17:36 Urine Protein Negative (Negative) 02/08/20 17:36 Urine Glucose (UA) Negative (Negative) 02/08/20 17:36 Urine Ketones Trace (Negative) H 02/08/20 17:36 Urine Nitrite Negative (Negative) 02/08/20 17:36 Ur Leukocyte Esterase Negative (Negative) 02/08/20 17:36 Urine WBC (Auto) 1-5 /hpf (0-5) 02/08/20 17:36 Urine RBC (Auto) 10-30 /hpf (0-4) H 02/08/20 17:36 U Hyaline Cast (Auto) 0 /lpf (0-5) 02/08/20 17:36 U Epithel Cells (Auto) 0-5 /lpf (0-5) 02/08/20 17:36 Urine Bacteria (Auto) Negative (Negative) 02/08/20 17:36 Blood Type AB Positive 02/08/20 19:55 Antibody Screen NEGATIVE 02/08/20 19:55 Electrocardiogram Date: 02/09/20 Findings: + AFIB @ (66) A fib. LAD. Non-specific intra-ventricular conduction block. Chest X-Ray Date: 02/08/20 XR chest 1V portable CLINICAL HISTORY: fall trauma. Pain. COMPARISON STUDY: 10/14/2017 FINDINGS: Mild stable cardiomegaly post median sternotomy. Lungs are clear. Diaphragms are smooth. IMPRESSION: No acute process. Echocardiogram Date: 10/14/17 Normal LV systolic function, EF 50-55%. Akinesis of the anteroapical and anteroseptal rodney, otherwise normal wall motion. Grade 1 DD. Bi-leaflet aortic prosthesis. No regurg. The gradient is normal for this prosthetic aortic valve. Mild TR. Mild LAE. Moderate enlargement of the ascending aorta.
--- NOTE | 2020-02-09 15:53 | Electrocardiogram Report ---
Test Reason : Blood Pressure : / mmHG Vent. Rate : 066 BPM Atrial Rate : 000 BPM P-R Int : 000 ms QRS Dur : 146 ms QT Int : 452 ms P-R-T Axes : 000 -78 131 degrees QTc Int : 473 ms Atrial fibrillation Left axis deviation Left bundle branch block Minimal voltage criteria for LVH, may be normal variant ( David product ) Abnormal ECG When compared with ECG of 08-FEB-2020 15:32, T wave inversion more evident in Lateral leads Confirmed by Kishan Vargas ([id number]) on 02/09/2020 3:52:57 PM Referred By: REFERRED SELF Confirmed By:Kishan Vargas
[2020-02-09] MEDS: HEPARIN SODIUM/DEXTROSE 25,000 UNITS/500 ML BAG IV SCH (17:14)
[2020-02-09] MEDS: OXYCODONE HCL IR 5 MG TAB (IMMEDIATE RELEASE) PO PRN (17:16)
[2020-02-09 17:52] LABS: Partial Thromboplastin Ratio 2.3
[2020-02-09 17:55] LABS: Partial Thromboplastin Time 64.1 Seconds (21.0-31.0)
[2020-02-09] MEDS ORDERED: LIDOCAINE 5% 1 PATCH TD SCH (18:45)
[2020-02-09] MEDS: DOCUSATE SODIUM/SENNA 50/8.6MG TAB PO SCH (19:25)
--- NOTE | 2020-02-10 07:46 | Hospitalist Progress Note ---
Date of Service February 09, 2020 Assessment & Plan (1) Subcapital fracture of left hip: Left Hip fracture S/P mechanical Fall CT head:No acute intracranial abnormality. Atrophy and considerable age-related chronic small vessel change. Neck CT:There is no evidence of fracture or subluxation involving the cervical spine. Osteopenia and spondylotic change as above. Hip X ray:Slightly displaced intertrochanteric fracture of the proximal left femur. Pain control, IV fluids Type and cross Given complicated cardiac history, needs preop clearance with cardiology Cardiology consulted - plan for vit. 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 Denies any chest pain, shortness of breath, palpitations. Has some L hip discomfort, but denies any significant pain at this time. Cardiology consulted for pre-op eval given significant cardiac hx - plan for vit. K to reverse INR and IV heparin. Plan for surgical intervention tomorrow by ortho. Review of Systems Review of Systems: All systems reviewed & are unremarkable except as noted in HPI & below Constitutional: no fever and no chills Respiratory: no cough and no dyspnea Cardiovascular: no chest pain and no palpitations Gastrointestinal: no abdominal pain, no nausea and no vomiting Physical Exam Physical Exam: General Appearance:Moderately built elderly male and nourished, no apparent distress Head: normocephalic, Atraumatic Eyes: normal inspection, EOMI Neck: supple, Trachea midline Respiratory/Chest: Normal breath sounds, CTAB, No accessory muscle use Cardiovascular: Aortic click, irregularly irregular, no audible murmur Abdomen/GI:Soft, Non tender, Bowel sounds present Extremities/Musculoskelatal:normal inspection, no edema, left hip tender, externally rotated, shortened. Neurologic/Psych:AAOX3, grossly no focal neurological deficits Skin: normal color, warm Results & Data Results & Data ([facility]) Vital Signs (Past 12 Hours) Vital Signs Temp Pulse Pulse Resp BP Pulse Ox 02/09/20 23:31 36.8 C 69 16 153/73 H 96 (1) Subcapital fracture of left hip Encounter type: initial encounter Fracture type: closed Qualified Code(s): S72.012A - Unspecified intracapsular fracture of left femur, initial encounter for closed fracture
[2020-02-10 07:48] LABS: INR 1.5 (0.9-1.1); Prothrombin Time 15.1 Seconds (9.0-12.0)
[2020-02-10] MEDS: lisinopriL 10 MG TAB PO SCH (08:06)
[2020-02-10] MEDS: CHOLECALCIFEROL 1,000 UNITS 25 MCG TAB PO SCH (08:06)
[2020-02-10] MEDS: METOPROLOL TARTRATE 25 MG TAB PO SCH (08:06)
[2020-02-10] MEDS: ASPIRIN 81 MG ECTAB PO SCH (08:06)
[2020-02-10] MEDS: LORATADINE 10 MG TAB PO SCH (08:06)
[2020-02-10 08:40] LABS: Partial Thromboplastin Ratio 1.9
[2020-02-10 08:41] LABS: Partial Thromboplastin Time 53.1 Seconds (21.0-31.0)
[2020-02-10] MEDS ORDERED: ROSUVASTATIN CALCIUM 20 MG TAB PO SCH (09:00)
--- NOTE | 2020-02-10 09:50 | Cardiology Progress Note ---
Date of Service February 10, 2020 Assessment & Plan (1) Intertrochanteric fracture of left femur: (2) CAD (coronary artery disease): (3) Fall: (4) Aortic valve replaced: (5) S/P CABG x 5: The patient will proceed to surgery today. His INR this morning is 1.5. The heparin can be held in anticipation of surgery. I would resume his Coumadin tonight. He will also need a bridge postop. Subjective The patient is ready for surgery this morning. Review of Systems Review of Systems: All systems reviewed & are unremarkable except as noted in HPI & below Nothing additional to add. Physical Exam Physical Exam: General: no acute distress and stated age Head: normocephalic, no masses, lesions, tenderness or abnormalities Eyes: conjunctiva are pink and non-injected, sclera clear Neck: supple, no adenopathy, no bruits, normal jugular venous pulse, no hepatojugular reflux Chest: normal shape and normal respiratory effort Lungs: clear to auscultation and percussion Cardiac Exam: - regular rate & rhythm, no murmurs gallops or rubs - normal S1, metallic S2 Pulses: 2(+) throughout Abdomen: abdomen soft, non-tender, no abnormal masses and no hepatosplenomegaly Musculoskeletal: no gait disturbance, no joint inflammation, no deforming arthritis Extremities: no edema and no cyanosis Neuro: grossly normal exam Results & Data Vital Signs (Past 12 Hours) Vital Signs Temp Pulse Pulse Resp BP BP Pulse Ox 02/10/20 08:00 71 02/10/20 07:48 36.5 C 86 18 144/80 H 98 02/10/20 04:00 36.8 C 86 16 160/75 H 93 02/10/20 02:24 85 02/09/20 23:31 36.8 C 69 16 153/73 H 96 Laboratory Results Laboratory Results - last 24 hr 02/08/20 02/09/20 02/09/20 21:00 09:08 17:21 PT INR APTT 95.2 H* 64.1 H* PTT Ratio 3.4 2.3 COVID-19 PCR NEGATIVE 02/10/20 02/10/20 07:05 07:05 PT 15.1 H INR 1.5 H APTT 53.1 H* PTT Ratio 1.9 COVID-19 PCR Medications Administered Current Inpatient Medications Acetaminophen (Tylenol) 650 mg PO Q4H PRN PRN Reason: Pain or Fever Stop: 03/09/20 19:29 Last Admin: 02/08/20 22:32 Dose: 650 mg Documented by: Aspirin (Ecotrin Ectab) 81 mg PO [facility] Stop: 03/10/20 08:59 Last Admin: 02/10/20 08:06 Dose: 81 mg Documented by: Bisacodyl (Dulcolax) 10 mg NM DAILY PRN PRN Reason: Constipation Stop: 03/09/20 19:29 Hydralazine HCl (Apresoline) 5 mg PO Q6H PRN PRN Reason: Hypertension Stop: 03/09/20 20:14 Sodium Chloride (Nss 1000ml) 1,000 mls @ 50 mls/hr IV .Q20H [facility] Stop: 03/09/20 21:59 Last Admin: 02/09/20 19:26 Dose: 50 mls/hr Documented by: Promethazine HCl 6.25 mg/ (Sodium Chloride) 50.25 mls @ 201 mls/hr IV Q6H PRN PRN Reason: Nausea And Vomiting Stop: 03/09/20 19:29 Lidocaine (Lidoderm 5%) 1 patch TD DAILY@2100 [facility] Stop: 03/10/20 18:44 Lisinopril (Zestril) 10 mg PO [facility] Stop: 03/10/20 08:59 Last Admin: 02/10/20 08:06 Dose: 10 mg Documented by: Loratadine (Claritin) 10 mg PO [facility] Stop: 03/10/20 08:59 Last Admin: 02/10/20 08:06 Dose: 10 mg Documented by: Magnesium Hydroxide (Milk Of Magnesia) 30 ml PO DAILY PRN PRN Reason: Constipation Stop: 03/09/20 19:29 Metoprolol Tartrate (Lopressor) 25 mg PO [facility] Stop: 03/10/20 08:59 Last Admin: 02/10/20 08:06 Dose: 25 mg Documented by: Miscellaneous (Remove Lidoderm Patch) 1 ea N/A DAILY@0900 [facility] Stop: 03/10/20 20:59 Last Admin: 02/10/20 08:06 Dose: 1 ea Documented by: Morphine Sulfate (Morphine Sulfate) 2 mg IV Q2H PRN PRN Reason: MODERATE Pain (Scale 4,5,6) Stop: 02/22/20 19:29 Last Admin: 02/09/20 11:15 Dose: 2 mg Documented by: Naloxone HCl (Narcan) 0.1 mg IV UD PRN PRN Reason: Opiate Overdose Stop: 03/09/20 19:29 Oxycodone HCl (Roxicodone Immediate Rel) 5 mg PO Q4H PRN PRN Reason: MODERATE Pain (Scale 4,5,6) Stop: 02/22/20 19:29 Last Admin: 02/09/20 17:16 Dose: 5 mg Documented by: Polyethylene Glycol (Miralax Powder Packet) 17 gm PO DAILY PRN PRN Reason: Constipation Stop: 03/09/20 19:29 Rosuvastatin Calcium (Crestor) 20 mg PO Q2D [facility] Stop: 03/11/20 08:59 Last Admin: 02/10/20 08:06 Dose: 20 mg Documented by: Senna/Docusate Sodium (Senokot S) 2 tab PO HS [facility] Stop: 03/09/20 20:59 Last Admin: 02/09/20 19:25 Dose: 2 tab Documented by: Vitamin D (Vitamin D3) 1,000 units PO QAM [facility] Stop: 03/10/20 08:59 Last Admin: 02/10/20 08:06 Dose: 1,000 units Documented by: (1) Fall Encounter type: initial encounter Qualified Code(s): W19.XXXA - Unspecified fall, initial encounter (2) Intertrochanteric fracture of left femur Encounter type: initial encounter Fracture alignment: displaced Fracture type: closed Qualified Code(s): S72.142A - Displaced intertrochanteric fracture of left femur, initial encounter for closed fracture
--- NOTE | 2020-02-10 13:45 | Electrocardiogram Report ---
Test Reason : Blood Pressure : / mmHG Vent. Rate : 086 BPM Atrial Rate : 000 BPM P-R Int : 000 ms QRS Dur : 142 ms QT Int : 396 ms P-R-T Axes : 000 -73 099 degrees QTc Int : 473 ms Atrial fibrillation with premature ventricular or aberrantly conducted complexes Left axis deviation Non-specific intra-ventricular conduction block Minimal voltage criteria for LVH, may be normal variant Cannot rule out Septal infarct , age undetermined Abnormal ECG When compared with ECG of 09-FEB-2020 06:35, T wave inversion less evident in Lateral leads Confirmed by Kishan Vargas ([id number]) on 02/10/2020 1:44:45 PM Referred By: REFERRED SELF Confirmed By:Kishan Vargas
[2020-02-10] MEDS: SODIUM CHLORIDE 0.9% 1000ML 1,000 ML IV SCH (14:39)
[2020-02-10] MEDS ORDERED: PROPOFOL IV EMULSION 10 MG/ML 20 ML VIAL IV ONE (14:58)
[2020-02-10] MEDS ORDERED: fentaNYL citrate 100 MCG/2 ML VIAL ONE (14:58)
[2020-02-10] MEDS ORDERED: ONDANSETRON INJ 2 MG/ML 2 ML VIAL ONE (14:58)
[2020-02-10] MEDS ORDERED: ROCURONIUM BROMIDE 10 MG/ML 5 ML VIAL IV ONE (14:58)
[2020-02-10] MEDS ORDERED: MIDAZOLAM HCL 1 MG/ML 2ML VIAL ONE (14:58)
[2020-02-10] MEDS ORDERED: LIDOCAINE HCL 2% 2 ML VIAL/AMP(20MG/ML) INFIL ONE (14:58)
[2020-02-10] MEDS ORDERED: EPINEPHrine INJ 1 MG/ML AMP ONE (15:00)
[2020-02-10] MEDS ORDERED: BUPIVACAINE 0.5 % 5 MG/1 ML MPF 30ML VIAL ONE (15:00)
--- NOTE | 2020-02-10 16:03 | Orthopedic Progress Note ---
Date of Service February 10, 2020 Assessment & Plan (1) Intertrochanteric fracture of left femur: We will proceed with surgical intervention today of the left femur as he has been cleared by Cardiology this morning. We will follow their recommendations regarding DVT prophylaxis post-operatively. Will follow him post-operatively. Supervising Physician Co-Signing Physician Notes Agree with note. Proceed w surgery enrique. Plan for heparin bridge. Can restart warfarin POD1. Subjective Anthony is a 84-year-old gentleman who sustained a fall 2 days ago while exercising. He was presented to the ED where x-rays revealed that he had an left intertrochanteric fracture. We were planning to fix him yesterday afternoon however he he was not cleared by cardiology. He has since been cleared by cardiology this morning as his INR is 1.5 and is ready to proceed with left intertrochanteric fixation No fever, chills, chest pain, shortness of breath, or difficulty breathing. Review of Systems Review of Systems: All systems reviewed & are unremarkable except as noted in HPI & below Physical Exam Constitutional: WD/WN, vitals as above Eyes: PERRL, conjunctivae normal, anicteric sclerae ENMT: external ear and nose normal, oropharynx normal Neck: normal visual inspection Respiratory: normal respiratory effort Cardiovascular: Rate/Rhythm: regular rate Gastrointestinal (Abdomen): Inspection/Auscultation: abdomen normal to inspection Skin: no rashes, warm and dry Psychiatric: Orientation: alert Apperance: appeared stated age Results & Data ([facility]) Vital Signs (Past 12 Hours) Vital Signs Temp Pulse Resp BP BP Pulse Ox 02/10/20 15:44 37.2 C 64 18 137/80 97 02/10/20 11:40 36.8 C 57 L 19 133/74 97 02/10/20 11:00 62 02/10/20 08:00 71 02/10/20 07:48 36.5 C 86 18 144/80 H 98 02/10/20 04:00 36.8 C 86 16 160/75 H 93 PG Care Time/CCT Total # of Minutes Spent Total Time Spent with Patient: Total time spent is greater than 50% in coordination of care (as documented) at patient's floor/unit and/or counseling patient: Coding Level of Care Code 73528 Subseq Hosp Care Lvl 2 Diagnoses Intertrochanteric fracture of left femur S72.142A Encounter type: initial encounter Fracture alignment: displaced Fracture type: closed (1) Intertrochanteric fracture of left femur Encounter type: initial encounter Fracture alignment: displaced Fracture type: closed Qualified Code(s): S72.142A - Displaced intertrochanteric fracture of left femur, initial encounter for closed fracture
--- NOTE | 2020-02-10 16:07 | Hospitalist Progress Note ---
Date of Service February 10, 2020 Assessment & Plan (1) Subcapital fracture of left hip: Left Hip fracture S/P mechanical Fall CT head:No acute intracranial abnormality. Atrophy and considerable age-related chronic small vessel change. Neck CT:There is no evidence of fracture or subluxation involving the cervical spine. Osteopenia and spondylotic change as above. Hip X ray:Slightly displaced intertrochanteric fracture of the proximal left femur. Appreciate Ortho input and recommendation Appreciate cardiology input and medical clearance with complex cardiac history We will have left hip trochanteric nail placement on 02/10/2020 Will need PT and OT evaluation and possible rehab for short-term DVT Px on IV heparin Orthopedics consulted - plan for surgical intervention tomorrow (02/10/20) NPO after midnight bowel regimen to prevent constipation PT/OT as able May need rehab Monitor for for post op anemia Preop COVID screen ordered Hypertensive urgency Noted to have high blood pressure at presentation with history of hypertension Likely situational secondary to pain Continue lisinopril, metoprolol PO Hydralazine PRN Blood pressure seems to be controlled Hyponatremia Sodium 134 Gentle IV fluids Monitor sodium levels Sodium levels remain around 133 as of 02/10/2020 CAD S/P CABG X 5 H/O Ischemic cardiomyopathy 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 Continue aspirin, statin, metoprolol, lisinopril Appreciate cardiology input and recommendation H/O rheumatic aortic valve disease S/P mechanical aortic valve on chronic Coumadin therapy INR:2.5 Hold Coumadin for now Received vitamin K intravenously prior to surgery On IV heparin Atrial fibrillation Rate controlled Continue metoprolol On IV heparin for anticoagulation Monitor INR Hyperlipidemia On Statin DVT Px: on IV heparin Code Status Full Code Admission and Anticipated Discharge Date Admission Date: February 08, 2020 Subjective The patient was seen and examined in telemetry unit He is a status post fall with left hip fracture Will have surgery sometime this morning Complains today of pain in the left hip otherwise unremarkable Review of Systems Review of Systems: All systems reviewed and are unremarkable except as noted below Musculoskeletal: Left hip pain on movement Physical Exam Physical Exam: Lying in bed comfortably Constitutional: well developed, well nourished, + ill appearing and + obese; no acute distress Eyes: PERRL, conjunctivae normal, anicteric sclerae ENMT: external ear and nose normal, oropharynx normal Neck: trachea midline, no thyromegaly Respiratory: normal respiratory effort, lungs clear to auscultation Cardiovascular: Rate/Rhythm: regular rate and regular rhythm Gastrointestinal (Abdomen): Inspection/Auscultation: abdomen normal to inspection and normal bowel sounds; abdomen not distended Percussion/Palpation: abdomen soft; abdomen nontender Musculoskeletal: Head/Neck/Chest: + head abnormal to inspection and normocephalic Neurologic: plantar reflexes intact bilaterally and moves all extremities; no focal motor deficits Lymphatic: no cervical or axillary lymphadenopathy Results & Data Results & Data ([facility]) Vital Signs (Past 12 Hours) Vital Signs Temp Pulse Resp BP BP Pulse Ox 02/10/20 15:44 37.2 C 64 18 137/80 97 02/10/20 11:40 36.8 C 57 L 19 133/74 97 02/10/20 11:00 62 02/10/20 08:00 71 02/10/20 07:48 36.5 C 86 18 144/80 H 98 Medications Administered Current Inpatient Medications Acetaminophen (Tylenol) 650 mg PO Q4H PRN PRN Reason: Pain or Fever Stop: 03/09/20 19:29 Last Admin: 02/08/20 22:32 Dose: 650 mg Documented by: Aspirin (Ecotrin Ectab) 81 mg PO QAM [facility] Stop: 03/10/20 08:59 Last Admin: 02/10/20 08:06 Dose: 81 mg Documented by: Bisacodyl (Dulcolax) 10 mg [place] DAILY PRN PRN Reason: Constipation Stop: 03/09/20 19:29 Hydralazine HCl (Apresoline) 5 mg PO Q6H PRN PRN Reason: Hypertension Stop: 03/09/20 20:14 Sodium Chloride (Nss 1000ml) 1,000 mls @ 50 mls/hr IV .Q20H [facility] Stop: 03/09/20 21:59 Last Admin: 02/10/20 14:39 Dose: 50 mls/hr Documented by: Promethazine HCl 6.25 mg/ (Sodium Chloride) 50.25 mls @ 201 mls/hr IV Q6H PRN PRN Reason: Nausea And Vomiting Stop: 03/09/20 19:29 Lidocaine (Lidoderm 5%) 1 patch TD DAILY@2100 [facility] Stop: 03/10/20 18:44 Lisinopril (Zestril) 10 mg PO [facility] Stop: 03/10/20 08:59 Last Admin: 02/10/20 08:06 Dose: 10 mg Documented by: Loratadine (Claritin) 10 mg PO [facility] Stop: 03/10/20 08:59 Last Admin: 02/10/20 08:06 Dose: 10 mg Documented by: Magnesium Hydroxide (Milk Of Magnesia) 30 ml PO DAILY PRN PRN Reason: Constipation Stop: 03/09/20 19:29 Metoprolol Tartrate (Lopressor) 25 mg PO [facility] Stop: 03/10/20 08:59 Last Admin: 02/10/20 08:06 Dose: 25 mg Documented by: Miscellaneous (Remove Lidoderm Patch) 1 ea N/A DAILY@0900 [facility] Stop: 03/10/20 20:59 Last Admin: 02/10/20 08:06 Dose: 1 ea Documented by: Morphine Sulfate (Morphine Sulfate) 2 mg IV Q2H PRN PRN Reason: MODERATE Pain (Scale 4,5,6) Stop: 02/22/20 19:29 Last Admin: 02/09/20 11:15 Dose: 2 mg Documented by: Naloxone HCl (Narcan) 0.1 mg IV UD PRN PRN Reason: Opiate Overdose Stop: 03/09/20 19:29 Oxycodone HCl (Roxicodone Immediate Rel) 5 mg PO Q4H PRN PRN Reason: MODERATE Pain (Scale 4,5,6) Stop: 02/22/20 19:29 Last Admin: 02/09/20 17:16 Dose: 5 mg Documented by: Polyethylene Glycol (Miralax Powder Packet) 17 gm PO DAILY PRN PRN Reason: Constipation Stop: 03/09/20 19:29 Rosuvastatin Calcium (Crestor) 20 mg PO Q2D [facility] Stop: 03/11/20 08:59 Last Admin: 02/10/20 08:06 Dose: 20 mg Documented by: Senna/Docusate Sodium (Senokot S) 2 tab PO [facility] Stop: 03/09/20 20:59 Last Admin: 02/09/20 19:25 Dose: 2 tab Documented by: Vitamin D (Vitamin D3) 1,000 units PO [facility] Stop: 03/10/20 08:59 Last Admin: 02/10/20 08:06 Dose: 1,000 units Documented by: (1) Subcapital fracture of left hip Encounter type: initial encounter Fracture type: closed Qualified Code(s): S72.012A - Unspecified intracapsular fracture of left femur, initial encounter for closed fracture
[2020-02-10] MEDS ORDERED: CEFAZOLIN 250 MG/ML 1 GM VIAL ONE (16:39)
[2020-02-10] MEDS ORDERED: PHENYLEPHRINE 100MCG/ML 5ML SYR IV PRN (17:18)
[2020-02-10] MEDS ORDERED: ePHEDrine sulfate 50 MG/ML AMP IV PRN (17:18)
[2020-02-10] MEDS ORDERED: ONDANSETRON INJ 2 MG/ML 2 ML VIAL IV PRN (17:18)
[2020-02-10] MEDS ORDERED: ATROPINE SULFATE 0.1 MG/ML 10ML SYR IV PRN (17:18)
[2020-02-10] MEDS ORDERED: LABETALOL HCL IV 5 MG/ML 20ML IV PRN (17:18)
[2020-02-10] MEDS ORDERED: HYDROmorphone INJ 1 MG/ML SYRINGE IV PRN (17:18)
[2020-02-10] MEDS ORDERED: fentaNYL citrate 100 MCG/2 ML VIAL IV PRN (17:18)
[2020-02-10] MEDS ORDERED: CEFAZOLIN 2000MG 2,000 MG/15 ML SYR IV ONE (17:26)
--- NOTE | 2020-02-10 18:17 | Post Operative Brief Note ---
PG Immediate Post Op with CF Date of Surgery February 10, 2020 Pre & Post Diagnosis Operation Date: 02/10/20 07:00 Pre-Op Diagnosis: Intertrochanteric Fracture of Left Femur Post-Op Diagnosis: Intertrochanteric Fracture of Left Femur I identified the patient and participated in the time-out.: Yes Procedure Operation Date: 02/10/20 07:00 Actual Procedures p Left Hip Troch Nail(Left) - Freeman Rodriguez Surgeon Freeman Rodriguez English Composition Instructor Nomi Arnold PA-C Estimated Blood Loss 200 Findings Consistent with Post-Op Diagnosis Specimens Specimen Description: No specimens per surgeon.
--- NOTE | 2020-02-10 18:26 | Operative Report ---
PG Post Operative Report Pre & Post Diagnosis Operation Date: 02/10/20 07:00 Pre-Op Diagnosis: Intertrochanteric Fracture of Left Femur Post-Op Diagnosis: Intertrochanteric Fracture of Left Femur I identified the patient and participated in the time-out.: Yes Procedure Operation Date: 02/10/20 07:00 Actual Procedures p Left intertrochanteric fracture closed reduction and cephalomedullary fixation(Left) - Freeman Rodriguez Surgeon Freeman Rodriguez Protein Purification Scientist Nomi Arnold PA-C Estimated Blood Loss 200 Findings See Below Comminuted intertrochanteric fracture stabilized with an 11 mm / 130 degree titanium cannulated trochanteric fixation nail measuring 400 mm of length. Lot #[id number] expiration 06/2021. The helical blade was 11 mm x 105 mm, titanium helical blade. Lot #[id number] expiration 05/18/2028. There was a 46 mm x 5 mm diameter distal interlock screw. Specimens none Anesthesia Type General Complications none Disposition Accompanied Patient To Recovery: No Disposition: Recovery Room Indications 84-year-old male who sustained a fall onto his left hip resulting in intertrochanteric fracture requiring surgical fixation. I discussed the nature of the fracture and the recommendation for surgical management with the patient and his son who is the primary medical decision maker. They are both agreeable to proceed with surgery after prolonged discussion of risks and benefits. Informed consent was obtained on the hospital floor, and verified with his son. Description of Procedure On the day of surgery should be was greeted in the preoperative holding area and the informed consent was reviewed and confirmed. The surgical site was then identified by the patient and signed by myself. The patient was taken to the operating placed by the OR table and anesthesia was induced. The patient is then positioned on the fracture table. All mac prominences were well paded. The operative foot was placed in the fracture boot with abundant padding. The well leg was secured. We then positioned the lower extremities in a scissor fashion with a non-op leg flexed down to allow visualization with fluoroscopy which was confirmed before we prepped and draped. Surgical timeout was called and verified by all present. Antibiotics were infused, and equipment is available and functional. The procedure was initiated with a closed reduction maneuvers. Gentle in-line traction pulled the fracture out to length. The limb was then internally rotated to reduce the proximal femur. Flexion and adduction were used to adj ust the reduction and allow access to the greater trochanter. The fracture was significantly comminuted with disruption of the shaft from the intertrochanteric region and splitting of the greater trochanter in the coronal plane. We had adequate reduction prior to prepping and draping. The leg was then prepped and draped in usual sterile fashion. Surgical timeout was reconfirmed. We initiated the surgical internal fixation portion with finding the start point with the tip of the greater trochanter. Fluoroscopic guidance was used and a small poke hole was established. The start point was confirmed on fluoroscopy in AP and lateral planes and the pin was advanced using a mallet. An incision was made about the pin to allow access for the reamers. The pin was then advanced past the lesser trochanter, and its position was confirmed using AP and lateral fluoroscopy. Using the protective sleeve, the opening reamer was advanced under power with fluoroscopic guidance over the guidepin. It was advanced slowly and we did ream out some lateral bone of the trochanter. The reduction pain was then advanced down the distal femur to the level of the superior pole of the patella. Measurement was taken from the tip of the trochanter down to the end of the guidewire, and the nail length was selected. We then began sequential reaming. We started with 11.5 and used fluoroscopy to guide our reaming. We advanced the reaming in gradual increments up to a 12 mm. An [11] mm nail was loaded onto the jig and advanced manually down the canal, while ensuring maintenance of the reduction on fluoroscopy. We then tapped it down into place until we achieve the good position for our cephalo-medullary screw. The cannula was placed on the jig to allow positioning of the cephalo-medullary screw. The skin incision was made in the appropriate spot. The jig cannulas were then placed against the lateral cortex. The cephalo-medullary screw guidepin was advanced towards the femoral head. The center-center position was confirmed on fluoroscopy in AP and lateral planes. The lateral view required some readjustment of the pin until acceptable pin placement was achieved. The length of the screw was measured off the guide. The helical blade screw was then opened on the back table and prepared on the screwdriver. The lateral cortical opening drill. The helical blade was advanced over the guidepin without the reamer drill due to bone quality, to appropriate position. The jig compression system was then used to manually compress the fracture to reduce the calcar. The helical blade was locked in rotation and then the traction was taken off. Fluoroscopy confirmed maintenance of reduction and adequate position of the implant. Attention was then directed distally to perform the interlock screws in using perfect washoe technique. 1 interlock screw was placed with a 5 mm diameter. The length was measured using a depth gauge, with fluoroscopic guidance. This completed the fixation. The wounds were then thoroughly irrigated with bulb syringe and normal saline. The deep fascial layer was approximated with 10 and 0 Vicryl suture. The dermal layer was approximated using 2-0 Vicryl suture. The final skin closure was completed with patricia. Wounds were dressed with sterile Xeroform, sterile gauze, and foam tape over ABDs. The patient tolerated procedure well, awoke from anesthesia without complication, was extubated in the operating room, and transferred to the PACU in stable condition. Disposition: The patient be weightbearing as tolerated. I recommended routine DVT prophylaxis for 6 weeks. He may be covered by his current anticoagulation. 24 hours of antibiotic prophylaxis should be continued. Physician architectural administrative assistant attestation: Nomi Arnold PA-C was present and scrubbed for the duration of the case. He was essential to prepping/draping, patient positioning, retraction, and assistance with wound closure. I attest to the content of the Intraoperative Record and any orders documented therein. Any exceptions are noted below.
--- NOTE | 2020-02-10 19:13 | Anesthesiology Progress Note ---
Date of Service February 10, 2020 Anesthesia Post Procedure Vital Signs Vital Signs: Temp Pulse Pulse Pulse Resp BP BP 02/10/20 19:00 62 18 135/67 02/10/20 18:50 36.6 C 62 18 144/63 H 02/10/20 18:40 55 L 18 123/56 L 02/10/20 18:30 61 18 134/61 02/10/20 18:23 36.5 C 59 L 18 151/72 H 02/10/20 15:44 37.2 C 64 18 137/80 02/10/20 11:40 36.8 C 57 L 19 133/74 02/10/20 11:00 62 02/10/20 08:00 71 02/10/20 07:48 36.5 C 86 18 144/80 H 02/10/20 04:00 36.8 C 86 16 160/75 H 02/10/20 02:24 85 02/09/20 23:31 36.8 C 69 16 153/73 H Pulse Ox 02/10/20 19:00 95 02/10/20 18:50 94 02/10/20 18:40 95 02/10/20 18:30 95 02/10/20 18:23 97 02/10/20 15:44 97 02/10/20 11:40 97 02/10/20 11:00 02/10/20 08:00 02/10/20 07:48 98 02/10/20 04:00 93 02/10/20 02:24 02/09/20 23:31 96 Pain Intensity Left Hip: Pain Intensity: 1 Transfer of Care Handoff Completed per policy Notes Mental Status: alert / awake / arousable Patient Amnestic to Procedure: Yes Nausea / Vomiting: adequately controlled Pain: adequately controlled Airway Patency, RR, SpO2: stable & adequate BP & HR: stable & adequate Hydration State: stable & adequate Anesthetic Complications: no major complications apparent and Pt Satisfied with anesthetic care Notes: The patient is awake and comfortable. His vitals are stable.
--- NOTE | 2020-02-10 20:04 | XRay Report ---
LEFT HIP 2 VIEWS CLINICAL HISTORY: Status post open reduction and internal fixation of a left hip fracture. FINDINGS: AP and crosstable lateral views of the left hip are compared to study dated 02/08/2020. The skeletal structures are osteopenic. Intertrochanteric and intramedullary nails transfix a mildly disp laced intertrochanteric fracture. Near-anatomic alignment is maintained. A single cortical lag screw transfixes the distal aspect of the intramedullary nail. The hip and knee joints are grossly maintain ed. No new fracture is identified. Soft tissue edema and subcutaneous gas present around the hip and in the thigh are expected postoperative changes. Skin clips are noted overlying the hip and in the di stal thigh. There is atherosclerotic calcification of the femoral artery. IMPRESSION: Expected postoperative findings status post open reduction and internal fixation of a lef t femoral fracture as above. Electronically signed by: Cooper Cisse M.D. 02/10/2020 8:03 PM
--- NOTE | 2020-02-10 20:06 | Fluoroscopy Report ---
INTRAOPERATIVE RADIOGRAPHS CLINICAL HISTORY: Open reduction and internal fixation of the left hip. Fluoroscopy time: 167 seconds. FINDINGS: 5 spot fluoroscopic views of the left hip and femur are correlated with radiographs dated . Intertrochanteric and intramedullary nails have been placed transfixing an intertrochanteri c fracture. Near-anatomic alignment is maintained. There is medial displacement of the lesser trochan ter. A single cortical lag screw transfixes the distal end of the nail. IMPRESSION: Intraoperative images from open reduction and internal fixation of the left femur as abov e. Electronically signed by: Cooper Cisse M.D. 02/10/2020 8:04 PM
[2020-02-10] MEDS: Heparin IV Standard *NO* Bolus IV SCH ×2 (20:35→20:36)
[2020-02-10] MEDS: LIDOCAINE 5% 1 PATCH TD SCH (21:00)
[2020-02-10] MEDS: DOCUSATE SODIUM/SENNA 50/8.6MG TAB PO SCH (21:00)
[2020-02-10] MEDS ORDERED: WARFARIN SOD 5 MG TAB PO SCH (21:00)
[2020-02-10] MEDS: HEPARIN SODIUM/DEXTROSE 25,000 UNITS/500 ML BAG IV SCH (21:01)
[2020-02-10] MEDS: ACETAMINOPHEN 325 MG TAB PO PRN (23:51)
[2020-02-11 04:15] LABS: INR 1.3 (0.9-1.1); Prothrombin Time 13.1 Seconds (9.0-12.0)
[2020-02-11 04:26] LABS: Basophils # (auto) 0.02 K/uL (0-0.2); Basophils % (auto) 0.2 %; Eosinophils # (auto) 0.32 K/uL (0-0.5); Eosinophils % (auto) 2.5 %; Hematocrit (blood only) 28.8 % (42-52); Hemoglobin 9.4 g/dL (14.0-18.0); Immature Granulocytes # (auto) 0.02 K/uL (0.00-0.02); Immature Granulocytes % (auto) 0.2 %; Lymphocytes # (auto) 0.98 K/uL (1.2-3.4); Lymphocytes % (auto) 7.5 %; Mean Corpuscular Hemoglobin 26.7 pg (25-34); Mean Corpuscular Hgb Conc 32.6 g/dL (32-36); Mean Corpuscular Volume 81.8 fL (80-100); Mean Platelet Volume 11.1 fL (7.4-10.4); Monocytes # (auto) 0.81 K/uL (0.11-0.59); Monocytes % (auto) 6.2 %; Neutrophils # (auto) 10.91 K/uL (1.4-6.5); Neutrophils % (auto) 83.4 %; Platelet Count 164 K/uL (130-400); RDW Coefficient of Variation 14.1 % (11.5-14.5); RDW Standard Deviation 42.1 fL (36.4-46.3); Red Blood Count 3.52 M/uL (4.7-6.1); White Blood Count 13.06 K/uL (4.8-10.8)
[2020-02-11 04:27] LABS: Partial Thromboplastin Time 83.2 Seconds (21.0-31.0)
[2020-02-11 04:46] LABS: Calcium 7.8 mg/dl (8.5-10.1); Creatinine Clr Calc Pharmacy 103.6 ml/min; Est GFR (African American) 112.5; Est GFR (Non-African American) 97.1; Magnesium 1.8 mg/dl (1.8-2.4); Potassium 3.9 mmol/L (3.5-5.1)
[2020-02-11] MEDS: SODIUM CHLORIDE 0.9% 1000ML 1,000 ML IV SCH (08:24)
--- NOTE | 2020-02-11 08:37 | Orthopedic Progress Note ---
Date of Service February 11, 2020 Assessment & Plan (1) Intertrochanteric fracture of left femur: Ed is doing well this morning. We will continue with the Heparin bridge until his Coumadin becomes therapeutic per Cardiology's recommendation. We will have them manage this. Weight bearing as tolerated on the affected extremity. Once PT has seen him we will follow their recommendations for appropriate level of care upon discharge as he currently lives alone. We will continue to follow him. Supervising Physician Co-Signing Physician Notes ATTENDING NOTE: Nomi Arnold PA-C assisted in caring for this patient. I agree with his note. The assessment and plan is my own. Subjective Ed is an 84 year old white male who is post-op day #1 of a Left Intertrochanteric nail done by Dr. Rodriguez yesterday evening. I saw him this morning. He was doing well and had no questions or concerns. I spoke with the nurse who is taking care of him and he reports that Ed was doing well and that he was refusing any pain medications. Per cardiology's recommendation he is receiving Heparin and Coumadin until his INR is therapeutic. He denies any fever, chills, chest pain or shortness of breath. Review of Systems Review of Systems: All systems reviewed & are unremarkable except as noted in HPI & below Physical Exam Constitutional: WD/WN, vitals as above Eyes: PERRL, conjunctivae normal, anicteric sclerae ENMT: external ear and nose normal, oropharynx normal Neck: normal visual inspection and trachea midline Respiratory: normal respiratory effort; no respiratory distress and no labored breathing Cardiovascular: Vessels: normal peripheral pulses Gastrointestinal (Abdomen): Inspection/Auscultation: abdomen normal to inspection Musculoskeletal: Head/Neck/Chest: normocephalic and head atraumatic He is able to slowly flex his left knee without any assistance. Unable to do a straight leg raise on the left. Skin: no rashes, warm and dry Incision is covered with what appears to be the post-operative dressing. Dressing is dry with no signs of bleeding. Neurologic: normal touch/pain/proprioception and moves all extremities Psychiatric: Orientation: alert and oriented x 3 Apperance: appeared stated age Eye Contact: good eye contact Results & Data ([facility]) Vital Signs (Past 12 Hours) Vital Signs Temp Pulse Resp BP Pulse Ox 02/11/20 08:03 36.7 C 67 18 113/59 L 95 02/11/20 04:05 36.3 C L 82 18 110/62 94 02/10/20 23:58 36.5 C 79 18 137/71 94 02/10/20 21:30 37 C 75 18 131/76 96 02/10/20 21:00 36.8 C 70 18 130/80 98 PG Care Time/CCT Total # of Minutes Spent Total Time Spent with Patient: Total time spent is greater than 50% in coordination of care (as documented) at patient's floor/unit and/or counseling patient: Coding Level of Care Code None Diagnoses Intertrochanteric fracture of left femur S72.142A Encounter type: initial encounter Fracture alignment: displaced Fracture type: closed (1) Intertrochanteric fracture of left femur Encounter type: initial encounter Fracture alignment: displaced Fracture type: closed Qualified Code(s): S72.142A - Displaced intertrochanteric fracture of left femur, initial encounter for closed fracture
[2020-02-11 10:37] LABS: Partial Thromboplastin Ratio 2.5
[2020-02-11 10:46] LABS: Partial Thromboplastin Time 69.4 Seconds (21.0-31.0)
--- NOTE | 2020-02-11 10:54 | Cardiology Progress Note ---
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 I have increased his daily dose of warfarin to 7.5 while in the hospital. I have also restarted his beta-quinn and TAYE inhibitor. Otherwise he is doing well. Subjective The patient had a successful surgery yesterday. He has no new cardiac complaints. Review of Systems Review of Systems: All systems reviewed & are unremarkable except as noted in HPI & below Nothing additional to add. Physical Exam Physical Exam: General: no acute distress and stated age Head: normocephalic, no masses, lesions, tenderness or abnormalities Eyes: conjunctiva are pink and non-injected, sclera clear Neck: supple, no adenopathy, no bruits, normal jugular venous pulse, no hepatojugular reflux Chest: normal shape and normal respiratory effort Lungs: clear to auscultation and percussion Cardiac Exam: - regular rate & rhythm, no murmurs gallops or rubs - normal S1, mechanical S2 Pulses: 2(+) throughout Abdomen: abdomen soft, non-tender, no abnormal masses and no hepatosplenomegaly Musculoskeletal: no gait disturbance, no joint inflammation, no deforming arthritis Extremities: no edema and no cyanosis Neuro: grossly normal exam Results & Data Vital Signs (Past 12 Hours) Vital Signs Temp Pulse Resp BP Pulse Ox 02/11/20 08:03 36.7 C 67 18 113/59 L 95 02/11/20 04:05 36.3 C L 82 18 110/62 94 02/10/20 23:58 36.5 C 79 18 137/71 94 Laboratory Results Laboratory Results - last 24 hr 02/11/20 02/11/20 02/11/20 03:00 03:00 03:00 WBC 13.06 H RBC 3.52 L Hgb 9.4 L Hct 28.8 L MCV 81.8 MCH 26.7 MCHC 32.6 RDW Std Deviation 42.1 RDW Coeff of Miller 14.1 Plt Count 164 MPV 11.1 H Immature Gran % (Auto) 0.2 Neut % (Auto) 83.4 Lymph % (Auto) 7.5 [place] % (Auto) 6.2 Eos % (Auto) 2.5 Baso % (Auto) 0.2 Neut # (Auto) 10.91 H Lymph # (Auto) 0.98 L [place] # (Auto) 0.81 H Eos # (Auto) 0.32 Baso # (Auto) 0.02 Immature Gran # (Auto) 0.02 PT 13.1 H INR 1.3 H APTT 83.2 H* PTT Ratio 3.0 Sodium 131 L Potassium 3.9 Chloride 101 Carbon Dioxide 24 Anion Gap 6.0 BUN 13 Creatinine 0.54 L Est Cr Clr Drug Dosing 103.6 Est GFR ( Amer) 112.5 Est GFR (Non-Af Amer) 97.1 BUN/Creatinine Ratio 24.0 H Glucose 107 H Calcium 7.8 L Magnesium 1.8 02/11/20 10:05 WBC RBC Hgb Hct MCV MCH MCHC RDW Std Deviation RDW Coeff of Miller Plt Count MPV Immature Gran % (Auto) Neut % (Auto) Lymph % (Auto) [place] % (Auto) Eos % (Auto) Baso % (Auto) Neut # (Auto) Lymph # (Auto) [place] # (Auto) Eos # (Auto) Baso # (Auto) Immature Gran # (Auto) PT INR APTT 69.4 H* PTT Ratio 2.5 Sodium Potassium Chloride Carbon Dioxide Anion Gap BUN Creatinine Est Cr Clr Drug Dosing Est GFR ( Amer) Est GFR (Non-Af Amer) BUN/Creatinine Ratio Glucose Calcium Magnesium Medications Administered Current Inpatient Medications Acetaminophen (Tylenol) 650 mg PO Q4H PRN PRN Reason: Pain or Fever Stop: 03/09/20 19:29 Last Admin: 02/10/20 23:51 Dose: 650 mg Documented by: Bisacodyl (Dulcolax) 10 mg AK DAILY PRN PRN Reason: Constipation Stop: 03/09/20 19:29 Hydralazine HCl (Apresoline) 5 mg PO Q6H PRN PRN Reason: Hypertension Stop: 03/09/20 20:14 Promethazine HCl 6.25 mg/ (Sodium Chloride) 50.25 mls @ 201 mls/hr IV Q6H PRN PRN Reason: Nausea And Vomiting Stop: 03/09/20 19:29 Heparin Sodium/Dextrose (Heparin Sodium/Dextrose) 25,000 units in 500 mls @ 22 mls/hr IV .[id number] [facility]; Protocol Stop: 03/11/20 19:27 Last Titration: 02/11/20 10:46 Dose: 1,100 units/hr, 22 mls/hr Documented by: Lidocaine (Lidoderm 5%) 1 patch TD DAILY@2100 [facility] Stop: 03/10/20 18:44 Last Admin: 02/10/20 21:00 Dose: Not Given Documented by: Lisinopril (Zestril) 10 mg PO QAM [facility] Stop: 03/13/20 08:59 Magnesium Hydroxide (Milk Of Magnesia) 30 ml PO DAILY PRN PRN Reason: Constipation Stop: 03/09/20 19:29 Metoprolol Succinate (Toprol Xl) 25 mg PO [facility] Stop: 03/12/20 10:59 Miscellaneous (Remove Lidoderm Patch) 1 ea N/A DAILY@0900 [facility] Stop: 03/10/20 20:59 Last Admin: 02/11/20 08:23 Dose: 1 ea Documented by: Morphine Sulfate (Morphine Sulfate) 2 mg IV Q2H PRN PRN Reason: MODERATE Pain (Scale 4,5,6) Stop: 02/22/20 19:29 Last Admin: 02/09/20 11:15 Dose: 2 mg Documented by: Naloxone HCl (Narcan) 0.1 mg IV UD PRN PRN Reason: Opiate Overdose Stop: 03/09/20 19:29 Oxycodone HCl (Roxicodone Immediate Rel) 5 mg PO Q4H PRN PRN Reason: MODERATE Pain (Scale 4,5,6) Stop: 02/22/20 19:29 Last Admin: 02/09/20 17:16 Dose: 5 mg Documented by: Polyethylene Glycol (Miralax Powder Packet) 17 gm PO DAILY PRN PRN Reason: Constipation Stop: 03/09/20 19:29 Senna/Docusate Sodium (Senokot S) 2 tab PO HS [facility] Stop: 03/09/20 20:59 Last Admin: 02/10/20 21:00 Dose: 2 tab Documented by: Warfarin Sodium (Coumadin) 7.5 mg PO DAILY@1600 [facility] Stop: 03/12/20 15:59 (1) Fall Encounter type: initial encounter Qualified Code(s): W19.XXXA - Unspecified fall, initial encounter (2) Intertrochanteric fracture of left femur Encounter type: initial encounter Fracture alignment: displaced Fracture type: closed Qualified Code(s): S72.142A - Displaced intertrochanteric fracture of left femur, initial encounter for closed fracture
[2020-02-11] MEDS: METOPROLOL SUCC 25MG EXT REL TAB PO SCH (12:20)
--- NOTE | 2020-02-11 15:27 | Hospitalist Progress Note ---
Date of Service February 11, 2020 Assessment & Plan (1) Subcapital fracture of left hip: Left Hip fracture S/P mechanical Fall CT head:No acute intracranial abnormality. Atrophy and considerable age-related chronic small vessel change. Neck CT:There is no evidence of fracture or subluxation involving the cervical spine. Osteopenia and spondylotic change as above. Hip X ray:Slightly displaced intertrochanteric fracture of the proximal left femur. Appreciate Ortho input and recommendation Appreciate cardiology input and medical clearance with complex cardiac history Status post left hip trochanteric nail placement on 02/10/2020 Patient remains stable and management will be as per orthopedic surgeon DVT Px on IV heparin Orthopedics consulted - plan for surgical intervention tomorrow (02/10/20) NPO after midnight bowel regimen to prevent constipation PT/OT as able May need rehab Monitor for for post op anemia Preop COVID 19 was negative Has been started on Coumadin-we will monitor INR Hypertensive urgency Noted to have high blood pressure at presentation with history of hypertension Likely situational secondary to pain Continue lisinopril, metoprolol PO Hydralazine PRN Blood pressure seems to be controlled Hyponatremia Sodium 134 Gentle IV fluids Monitor sodium levels Sodium levels remain around 133 as of 02/10/2020 Sodium level remains around 131 CAD S/P CABG X 5 H/O Ischemic cardiomyopathy 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 Continue aspirin, statin, metoprolol, lisinopril Appreciate cardiology input and recommendation H/O rheumatic aortic valve disease S/P mechanical aortic valve on chronic Coumadin therapy INR:2.5 Hold Coumadin for now Received vitamin K intravenously prior to surgery On IV heparin and started with oral Coumadin INR is 1.3 on 02/11/2020 Atrial fibrillation Rate controlled Continue metoprolol On IV heparin for anticoagulation Monitor INR-1.31 02/11/2020 Hyperlipidemia On Statin DVT Px: on IV heparin Code Status Full Code Admission and Anticipated Discharge Date Admission Date: February 08, 2020 Subjective The patient was seen and examined in telemetry unit He is a status post fall with left hip fracture Will have surgery sometime this morning Complains today of pain in the left hip otherwise unremarkable 02/11/2020 The patient was seen and examined in telemetry unit Status post left hip trochanteric nail insertion Complains of minimal pain with movement left hip but denies any other symptoms Review of Systems Review of Systems: All systems reviewed and are unremarkable except as noted below Musculoskeletal: Left hip pain on movement Physical Exam Physical Exam: Lying in bed comfortably Constitutional: well developed, well nourished and + obese; no acute distress and not ill appearing Eyes: PERRL, conjunctivae normal, anicteric sclerae ENMT: external ear and nose normal, oropharynx normal Neck: trachea midline, no thyromegaly Respiratory: normal respiratory effort; no respiratory distress Auscultation: lungs clear to auscultation bilaterally Cardiovascular: Rate/Rhythm: regular rate and regular rhythm Heart Sounds: + murmur Gastrointestinal (Abdomen): Inspection/Auscultation: abdomen normal to inspection and normal bowel sounds; abdomen not distended Percu ssion/Palpation: abdomen soft; abdomen nontender Musculoskeletal: Head/Neck/Chest: + head abnormal to inspection and normocephalic Pain with movement of the left hip Neurologic: plantar reflexes intact bilaterally and moves all extremities; no focal motor deficits Lymphatic: no cervical or axillary lymphadenopathy Results & Data Results & Data ([facility]) Vital Signs (Past 12 Hours) Vital Signs Temp Pulse Resp BP Pulse Ox 02/11/20 11:18 36.5 C 74 19 119/71 98 02/11/20 08:03 36.7 C 67 18 113/59 L 95 02/11/20 04:05 36.3 C L 82 18 110/62 94 Laboratory Results Short CBC 02/11/20 Range/Units 03:00 WBC 13.06 H (4.8-10.8) K/uL Hgb 9.4 L (14.0-18.0) g/dL Hct 28.8 L (42-52) % Plt Count 164 (130-400) K/uL BMP 02/11/20 03:00 Sodium 131 L Potassium 3.9 Chloride 101 Carbon Dioxide 24 BUN 13 Creatinine 0.54 L Glucose 107 H Calcium 7.8 L Medications Administered Current Inpatient Medications Acetaminophen (Tylenol) 650 mg PO Q4H PRN PRN Reason: Pain or Fever Stop: 03/09/20 19:29 Last Admin: 02/10/20 23:51 Dose: 650 mg Documented by: Bisacodyl (Dulcolax) 10 mg [place] DAILY PRN PRN Reason: Constipation Stop: 03/09/20 19:29 Hydralazine HCl (Apresoline) 5 mg PO Q6H PRN PRN Reason: Hypertension Stop: 03/09/20 20:14 Promethazine HCl 6.25 mg/ (Sodium Chloride) 50.25 mls @ 201 mls/hr IV Q6H PRN PRN Reason: Nausea And Vomiting Stop: 03/09/20 19:29 Heparin Sodium/Dextrose (Heparin Sodium/Dextrose) 25,000 units in 500 mls @ 22 mls/hr IV .[id number] [facility]; Protocol Stop: 03/11/20 19:27 Last Titration: 02/11/20 10:46 Dose: 1,100 units/hr, 22 mls/hr Documented by: Lidocaine (Lidoderm 5%) 1 patch TD DAILY@2100 [facility] Stop: 03/10/20 18:44 Last Admin: 02/10/20 21:00 Dose: Not Given Documented by: Lisinopril (Zestril) 10 mg PO [facility] Stop: 03/13/20 08:59 Magnesium Hydroxide (Milk Of Magnesia) 30 ml PO DAILY PRN PRN Reason: Constipation Stop: 03/09/20 19:29 Metoprolol Succinate (Toprol Xl) 25 mg PO [facility] Stop: 03/12/20 10:59 Last Admin: 02/11/20 12:20 Dose: 25 mg Documented by: Miscellaneous (Remove Lidoderm Patch) 1 ea N/A DAILY@0900 [facility] Stop: 03/10/20 20:59 Last Admin: 02/11/20 08:23 Dose: 1 ea Documented by: Morphine Sulfate (Morphine Sulfate) 2 mg IV Q2H PRN PRN Reason: MODERATE Pain (Scale 4,5,6) Stop: 02/22/20 19:29 Last Admin: 02/09/20 11:15 Dose: 2 mg Documented by: Naloxone HCl (Narcan) 0.1 mg IV UD PRN PRN Reason: Opiate Overdose Stop: 03/09/20 19:29 Oxycodone HCl (Roxicodone Immediate Rel) 5 mg PO Q4H PRN PRN Reason: MODERATE Pain (Scale 4,5,6) Stop: 02/22/20 19:29 Last Admin: 02/09/20 17:16 Dose: 5 mg Documented by: Polyethylene Glycol (Miralax Powder Packet) 17 gm PO DAILY PRN PRN Reason: Constipation Stop: 03/09/20 19:29 Senna/Docusate Sodium (Senokot S) 2 tab PO HS [facility] Stop: 03/09/20 20:59 Last Admin: 02/10/20 21:00 Dose: 2 tab Documented by: Warfarin Sodium (Coumadin) 7.5 mg PO DAILY@1600 [facility] Stop: 03/12/20 15:59 (1) Subcapital fracture of left hip Encounter type: initial encounter Fracture type: closed Qualified Code(s): S72.012A - Unspecified intracapsular fracture of left femur, initial encounter for closed fracture
[2020-02-11] MEDS: WARFARIN SOD 7.5 MG TAB PO SCH (17:14)
[2020-02-11 19:06] LABS: Partial Thromboplastin Time 54.6 Seconds (21.0-31.0)
[2020-02-11] MEDS: HEPARIN SODIUM/DEXTROSE 25,000 UNITS/500 ML BAG IV SCH (19:20)
[2020-02-11] MEDS: LIDOCAINE 5% 1 PATCH TD SCH (19:23)
[2020-02-11] MEDS: DOCUSATE SODIUM/SENNA 50/8.6MG TAB PO SCH (19:27)
[2020-02-12 06:34] LABS: Hematocrit (blood only) 24.4 % (42-52); Mean Corpuscular Hgb Conc 32.8 g/dL (32-36); Mean Corpuscular Volume 82.4 fL (80-100); Mean Platelet Volume 10.6 fL (7.4-10.4); Platelet Count 165 K/uL (130-400); RDW Coefficient of Variation 13.9 % (11.5-14.5); RDW Standard Deviation 42.2 fL (36.4-46.3); Red Blood Count 2.96 M/uL (4.7-6.1)
[2020-02-12 06:46] LABS: INR 1.5 (0.9-1.1); Prothrombin Time 15.3 Seconds (9.0-12.0)
[2020-02-12 07:00] LABS: BUN Creatinine Ratio 27.7 (10-20); Calcium 8.1 mg/dl (8.5-10.1); Est GFR (African American) 101.2; Est GFR (Non-African American) 87.3
[2020-02-12 07:12] LABS: Basophils # (auto) 0.01 K/uL (0-0.2); Basophils % (auto) 0.1 %; Eosinophils # (auto) 0.23 K/uL (0-0.5); Eosinophils % (auto) 1.4 %; Immature Granulocytes # (auto) 0.03 K/uL (0.00-0.02); Immature Granulocytes % (auto) 0.2 %; Lymphocytes # (auto) 1.31 K/uL (1.2-3.4); Lymphocytes % (auto) 8.2 %; Monocytes # (auto) 1.12 K/uL (0.11-0.59); Neutrophils % (auto) 83.1 %
[2020-02-12 07:36] LABS: Partial Thromboplastin Ratio 2.4
[2020-02-12 07:59] LABS: Partial Thromboplastin Time 65.6 Seconds (21.0-31.0)
[2020-02-12] MEDS: METOPROLOL SUCC 25MG EXT REL TAB PO SCH (08:14)
[2020-02-12] MEDS: lisinopriL 10 MG TAB PO SCH (08:15)
[2020-02-12] MEDS ORDERED: SODIUM CHLORIDE 0.9% 250 ML IV PRN (09:13)
[2020-02-12] MEDS ORDERED: FUROSEMIDE 40 MG in SYRINGE 0 ML IV SCH (09:30)
--- NOTE | 2020-02-12 11:12 | Cardiology Progress Note ---
Date of Service February 12, 2020 Assessment & Plan (1) Intertrochanteric fracture of left femur: (2) CAD (coronary artery disease): (3) Fall: (4) Aortic valve replaced: (5) S/P CABG x 5: Postop the patient is anemic and I agree with a blood transfusion today. His INR is 1.5. Otherwise he is doing well. Subjective No complaints today. Review of Systems Review of Systems: All systems reviewed & are unremarkable except as noted in HPI & below Nothing additional to add. Physical Exam Physical Exam: General: no acute distress and stated age Head: normocephalic, no masses, lesions, tenderness or abnormalities Eyes: conjunctiva are pink and non-injected, sclera clear Neck: supple, no adenopathy, no bruits, normal jugular venous pulse, no hepatojugular reflux Chest: normal shape and normal respiratory effort Lungs: clear to auscultation and percussion Cardiac Exam: -Irregular rate & rhythm, no murmurs gallops or rubs - normal S1, metallic S2 Pulses: 2(+) throughout Abdomen: abdomen soft, non-tender, no abnormal masses and no hepatosplenomegaly Musculoskeletal: no gait disturbance, no joint inflammation, no deforming arthritis Extremities: no edema and no cyanosis Neuro: grossly normal exam Results & Data Vital Signs (Past 12 Hours) Vital Signs Temp Pulse Resp BP Pulse Ox 02/12/20 09:59 36.6 C 88 20 115/73 98 02/12/20 03:57 36.3 C L 84 20 119/72 100 02/11/20 23:18 36.8 C 94 H 20 118/70 96 Laboratory Results Laboratory Results - last 24 hr 02/08/20 02/11/20 02/12/20 19:55 17:57 06:16 WBC RBC Hgb Hct MCV MCH MCHC RDW Std Deviation RDW Coeff of Miller Plt Count MPV Immature Gran % (Auto) Neut % (Auto) Lymph % (Auto) [place] % (Auto) Eos % (Auto) Baso % (Auto) Neut # (Auto) Lymph # (Auto) [place] # (Auto) Eos # (Auto) Baso # (Auto) Immature Gran # (Auto) PT 15.3 H INR 1.5 H APTT 54.6 H* PTT Ratio 2.0 Sodium Potassium Chloride Carbon Dioxide Anion Gap BUN Creatinine Est Cr Clr Drug Dosing Est GFR ( Amer) Est GFR (Non-Af Amer) BUN/Creatinine Ratio Glucose Calcium Blood Type Antibody Screen Crossmatch See Detail 02/12/20 02/12/20 02/12/20 06:16 06:16 06:16 WBC 16.00 H RBC 2.96 L Hgb 8.0 L Hct 24.4 L MCV 82.4 MCH 27.0 MCHC 32.8 RDW Std Deviation 42.2 RDW Coeff of Miller 13.9 Plt Count 165 MPV 10.6 H Immature Gran % (Auto) 0.2 Neut % (Auto) 83.1 Lymph % (Auto) 8.2 [place] % (Auto) 7.0 Eos % (Auto) 1.4 Baso % (Auto) 0.1 Neut # (Auto) 13.30 H Lymph # (Auto) 1.31 [place] # (Auto) 1.12 H Eos # (Auto) 0.23 Baso # (Auto) 0.01 Immature Gran # (Auto) 0.03 H PT INR APTT 65.6 H* PTT Ratio 2.4 Sodium 131 L Potassium 4.0 Chloride 98 Carbon Dioxide 28 Anion Gap 6.0 BUN 19 H Creatinine 0.70 Est Cr Clr Drug Dosing 80.0 Est GFR ( Amer) 101.2 Est GFR (Non-Af Amer) 87.3 BUN/Creatinine Ratio 27.7 H Glucose 130 H Calcium 8.1 L Blood Type Antibody Screen Crossmatch 02/12/20 09:40 WBC RBC Hgb Hct MCV MCH MCHC RDW Std Deviation RDW Coeff of Miller Plt Count MPV Immature Gran % (Auto) Neut % (Auto) Lymph % (Auto) [place] % (Auto) Eos % (Auto) Baso % (Auto) Neut # (Auto) Lymph # (Auto) [place] # (Auto) Eos # (Auto) Baso # (Auto) Immature Gran # (Auto) PT INR APTT PTT Ratio Sodium Potassium Chloride Carbon Dioxide Anion Gap BUN Creatinine Est Cr Clr Drug Dosing Est GFR ( Amer) Est GFR (Non-Af Amer) BUN/Creatinine Ratio Glucose Calcium Blood Type AB Positive Antibody Screen NEGATIVE Crossmatch See Detail Medications Administered Current Inpatient Medications Acetaminophen (Tylenol) 650 mg PO Q4H PRN PRN Reason: Pain or Fever Stop: 03/09/20 19:29 Last Admin: 02/10/20 23:51 Dose: 650 mg Documented by: Bisacodyl (Dulcolax) 10 mg [place] DAILY PRN PRN Reason: Constipation Stop: 03/09/20 19:29 Hydralazine HCl (Apresoline) 5 mg PO Q6H PRN PRN Reason: Hypertension Stop: 03/09/20 20:14 Promethazine HCl 6.25 mg/ (Sodium Chloride) 50.25 mls @ 201 mls/hr IV Q6H PRN PRN Reason: Nausea And Vomiting Stop: 03/09/20 19:29 Heparin Sodium/Dextrose (Heparin Sodium/Dextrose) 25,000 units in 500 mls @ 22 mls/hr IV .[id number] [facility]; Protocol Stop: 03/11/20 19:27 Last Admin: 02/11/20 19:20 Dose: 1,100 units/hr, 22 mls/hr Documented by: Sodium Chloride (Nss) 250 mls @ 15 mls/hr IV .[id number] PRN PRN Reason: For Transfusion Stop: 02/12/20 19:14 Furosemide 40 mg/ Syringe 4 mls @ 4 mls/min IV TODAY@0930 [facility] Stop: 02/12/20 12:00 Last Admin: 02/12/20 09:51 Dose: 4 mls/min Documented by: Lidocaine (Lidoderm 5%) 1 patch TD DAILY@2100 [facility] Stop: 03/10/20 18:44 Last Admin: 02/11/20 19:23 Dose: 1 patch Documented by: Lisinopril (Zestril) 10 mg PO [facility] Stop: 03/13/20 08:59 Last Admin: 02/12/20 08:15 Dose: 10 mg Documented by: Magnesium Hydroxide (Milk Of Magnesia) 30 ml PO DAILY PRN PRN Reason: Constipation Stop: 03/09/20 19:29 Last Admin: 02/11/20 19:23 Dose: 30 ml Documented by: Metoprolol Succinate (Toprol Xl) 25 mg PO [facility] Stop: 03/12/20 10:59 Last Admin: 02/12/20 08:14 Dose: 25 mg Documented by: Miscellaneous (Remove Lidoderm Patch) 1 ea N/A DAILY@0900 [facility] Stop: 03/10/20 20:59 Last Admin: 02/12/20 08:15 Dose: 1 ea Documented by: Morphine Sulfate (Morphine Sulfate) 2 mg IV Q2H PRN PRN Reason: MODERATE Pain (Scale 4,5,6) Stop: 02/22/20 19:29 Last Admin: 02/09/20 11:15 Dose: 2 mg Documented by: Naloxone HCl (Narcan) 0.1 mg IV UD PRN PRN Reason: Opiate Overdose Stop: 03/09/20 19:29 Oxycodone HCl (Roxicodone Immediate Rel) 5 mg PO Q4H PRN PRN Reason: MODERATE Pain (Scale 4,5,6) Stop: 02/22/20 19:29 Last Admin: 02/09/20 17:16 Dose: 5 mg Documented by: Polyethylene Glycol (Miralax Powder Packet) 17 gm PO DAILY PRN PRN Reason: Constipation Stop: 03/09/20 19:29 Senna/Docusate Sodium (Senokot S) 2 tab PO HS [facility] Stop: 03/09/20 20:59 Last Admin: 02/11/20 19:27 Dose: 2 tab Documented by: Warfarin Sodium (Coumadin) 7.5 mg PO DAILY@1600 [facility] Stop: 03/12/20 15:59 Last Admin: 02/11/20 17:14 Dose: 7.5 mg Documented by: (1) Intertrochanteric fracture of left femur Encounter type: initial encounter Fracture type: closed Fracture alignment: displaced Qualified Code(s): S72.142A - Displaced intertrochanteric fracture of left femur, initial encounter for closed fracture (2) Fall Encounter type: initial encounter Qualified Code(s): W19.XXXA - Unspecified fall, initial encounter
--- NOTE | 2020-02-12 16:08 | Hospitalist Progress Note ---
Date of Service February 12, 2020 Assessment & Plan (1) Subcapital fracture of left hip: Left Hip fracture S/P mechanical Fall CT head:No acute intracranial abnormality. Atrophy and considerable age-related chronic small vessel change. Neck CT:There is no evidence of fracture or subluxation involving the cervical spine. Osteopenia and spondylotic change as above. Hip X ray:Slightly displaced intertrochanteric fracture of the proximal left femur. Appreciate Ortho input and recommendation Appreciate cardiology input and medical clearance with complex cardiac history Status post left hip trochanteric nail placement on 02/10/2020 Patient remains stable and management will be as per orthopedic surgeon Hemoglobin dropped to 8.0 Likely secondary to acute blood loss Given the history of cardiac disease and the patient being symptomatic will transfuse with 2 units of PRBC Monitor CBC DVT Px on IV heparin Orthopedics consulted - plan for surgical intervention tomorrow (02/10/20) NPO after midnight bowel regimen to prevent constipation PT/OT as able May need rehab Monitor for for post op anemia Preop COVID 19 was negative INR is 1.5 today 02/12/2020 We will monitor INR Hypertensive urgency Noted to have high blood pressure at presentation with history of hypertension Likely situational secondary to pain Continue lisinopril, metoprolol PO Hydralazine PRN Blood pressure seems to be controlled Hyponatremia Sodium 134 Gentle IV fluids Monitor sodium levels Sodium levels remain around 133 as of 02/10/2020 Sodium level remains around 131 CAD S/P CABG X 5 H/O Ischemic cardiomyopathy 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 Continue aspirin, statin, metoprolol, lisinopril Appreciate cardiology input and recommendation No cardiac symptoms H/O rheumatic aortic valve disease S/P mechanical aortic valve on chronic Coumadin therapy INR:2.5 Hold Coumadin for now Received vitamin K intravenously prior to surgery On IV heparin and started with oral Coumadin INR is 1.5 on 02/12/2020 Atrial fibrillation Rate controlled Continue metoprolol On IV heparin for anticoagulation Monitor INR-1.31 02/11/2020 Hyperlipidemia On Statin DVT Px: on IV heparin Code Status Full Code Admission and Anticipated Discharge Date Admission Date: February 08, 2020 Subjective The patient was seen and examined in telemetry unit He is a status post fall with left hip fracture Will have surgery sometime this morning Complains today of pain in the left hip otherwise unremarkable 02/11/2020 The patient was seen and examined in telemetry unit Status post left hip trochanteric nail insertion Complains of minimal pain with movement left hip but denies any other symptoms 02/12/2020 The patient was seen and examined in telemetry unit He looks pale and complains today of weakness Denies any chest pain and/or palpitation, no abdominal pain nausea and/or vomiting Review of Systems Review of Systems: All systems reviewed and are unremarkable except as noted below Musculoskeletal: Left hip pain on movement Physical Exam Physical Exam: Lying in bed comfortably Constitutional: well developed, well nourished and + obese; no acute distress and not ill appearing Eyes: PERRL, conjunctivae normal, anicteric sclerae ENMT: external ear and nose normal, oropharynx normal Neck: trachea midline, no thyromegaly Respiratory: normal respiratory effort, lungs clear to auscultation normal respiratory effort; no respiratory distress Auscultation: lungs clear to auscultation bilaterally Cardiovascular: Rate/Rhythm: regular rate and regular rhythm Heart Sounds: + murmur Gastrointestinal (Abdomen): Inspection/Auscultation: abdomen normal to inspection and normal bowel sounds; abdomen not distended Percussion/Palpation: abdomen soft; abdomen nontender Musculoskeletal: Head/Neck/Chest: + head abnormal to inspection and normocephalic Left hip pain on movement Neurologic: plantar reflexes intact bilaterally and moves all extremities; no focal motor deficits Alert, Lymphatic: no cervical or axillary lymphadenopathy Results & Data Results & Data ([facility]) Vital Signs (Past 12 Hours) Vital Signs Temp Pulse Pulse Resp BP BP Pulse Ox 02/12/20 15:01 36.6 C 82 20 124/68 94 02/12/20 14:47 36.5 C 85 18 135/67 96 02/12/20 14:44 36.5 C 75 20 127/84 96 02/12/20 13:25 36.5 C 75 18 125/72 95 02/12/20 12:25 36.8 C 73 20 131/71 95 02/12/20 11:55 36.6 C 77 20 127/68 96 02/12/20 11:53 37.0 C 86 18 120/76 95 02/12/20 11:40 36.6 C 79 18 132/72 95 02/12/20 11:21 36.5 C 80 20 119/72 95 02/12/20 09:59 36.6 C 88 20 115/73 98 Laboratory Results Short CBC 02/12/20 Range/Units 06:16 WBC 16.00 H (4.8-10.8) K/uL Hgb 8.0 L (14.0-18.0) g/dL Hct 24.4 L (42-52) % Plt Count 165 (130-400) K/uL BMP 02/12/20 06:16 Sodium 131 L Potassium 4.0 Chloride 98 Carbon Dioxide 28 BUN 19 H Creatinine 0.70 Glucose 130 H Calcium 8.1 L Medications Administered Current Inpatient Medications Acetaminophen (Tylenol) 650 mg PO Q4H PRN PRN Reason: Pain or Fever Stop: 03/09/20 19:29 Last Admin: 02/10/20 23:51 Dose: 650 mg Documented by: Bisacodyl (Dulcolax) 10 mg [place] DAILY PRN PRN Reason: Constipation Stop: 03/09/20 19:29 Hydralazine HCl (Apresoline) 5 mg PO Q6H PRN PRN Reason: Hypertension Stop: 03/09/20 20:14 Promethazine HCl 6.25 mg/ (Sodium Chloride) 50.25 mls @ 201 mls/hr IV Q6H PRN PRN Reason: Nausea And Vomiting Stop: 03/09/20 19:29 Heparin Sodium/Dextrose (Heparin Sodium/Dextrose) 25,000 units in 500 mls @ 22 mls/hr IV .[id number] [facility]; Protocol Stop: 03/11/20 19:27 Last Admin: 02/11/20 19:20 Dose: 1,100 units/hr, 22 mls/hr Documented by: Sodium Chloride (Nss) 250 mls @ 15 mls/hr IV .[id number] PRN PRN Reason: For Transfusion Stop: 02/12/20 19:14 Lidocaine (Lidoderm 5%) 1 patch TD DAILY@2100 [facility] Stop: 03/10/20 18:44 Last Admin: 02/11/20 19:23 Dose: 1 patch Documented by: Lisinopril (Zestril) 10 mg PO QAM [facility] Stop: 03/13/20 08:59 Last Admin: 02/12/20 08:15 Dose: 10 mg Documented by: Magnesium Hydroxide (Milk Of Magnesia) 30 ml PO DAILY PRN PRN Reason: Constipation Stop: 03/09/20 19:29 Last Admin: 02/11/20 19:23 Dose: 30 ml Documented by: Metoprolol Succinate (Toprol Xl) 25 mg PO QAM [facility] Stop: 03/12/20 10:59 Last Admin: 02/12/20 08:14 Dose: 25 mg Documented by: Miscellaneous (Remove Lidoderm Patch) 1 ea N/A DAILY@0900 [facility] Stop: 03/10/20 20:59 Last Admin: 02/12/20 08:15 Dose: 1 ea Documented by: Morphine Sulfate (Morphine Sulfate) 2 mg IV Q2H PRN PRN Reason: MODERATE Pain (Scale 4,5,6) Stop: 02/22/20 19:29 Last Admin: 02/09/20 11:15 Dose: 2 mg Documented by: Naloxone HCl (Narcan) 0.1 mg IV UD PRN PRN Reason: Opiate Overdose Stop: 03/09/20 19:29 Oxycodone HCl (Roxicodone Immediate Rel) 5 mg PO Q4H PRN PRN Reason: MODERATE Pain (Scale 4,5,6) Stop: 02/22/20 19:29 Last Admin: 02/09/20 17:16 Dose: 5 mg Documented by: Polyethylene Glycol (Miralax Powder Packet) 17 gm PO DAILY PRN PRN Reason: Constipation Stop: 03/09/20 19:29 Senna/Docusate Sodium (Senokot S) 2 tab PO [facility] Stop: 03/09/20 20:59 Last Admin: 02/11/20 19:27 Dose: 2 tab Documented by: Warfarin Sodium (Coumadin) 7.5 mg PO DAILY@1600 [facility] Stop: 03/12/20 15:59 Last Admin: 02/11/20 17:14 Dose: 7.5 mg Documented by: (1) Subcapital fracture of left hip Encounter type: initial encounter Fracture type: closed Qualified Code(s): S72.012A - Unspecified intracapsular fracture of left femur, initial encounter for closed fracture
--- NOTE | 2020-02-12 16:14 | Orthopedic Progress Note ---
Date of Service February 12, 2020 Assessment & Plan (1) Intertrochanteric fracture of left femur: Making expected progress of postoperative day 2 Continue with his PT/OT. Hopefully he does better after receiving blood transfusion today. The transfusion is not unexpected given his anticoagulation, proximal femur fracture and subsequent surgery. Appreciate hospitalist and cardiology care of this patient. From an orthopedic perspective, he should continue PT and OT for mobility. His dressing should be changed daily until it is dry for greater than 24 hours. He will need patricia removed at 14 days postop, which can be done in our clinic with repeat x-rays. We will continue to follow peripherally and please contact us with any questions. His discharge instructions have been updated for our components. Present on Admission?: Yes Subjective This morning, the patient reported that he was disappointed to be too fatigued to move easily from his bed to chair. Reports that the hip pain is tolerable and improved since surgery. He wishes he had more energy. He is tolerating a diet. Denies any chest pain or shortness of breath. Review of Systems Review of Systems: All systems reviewed & are unremarkable except as noted in HPI & below Physical Exam Constitutional: WD/WN, vitals as above Respiratory: normal respiratory effort; no respiratory distress and no labored breathing Cardiovascular: Vessels: normal peripheral pulses Musculoskeletal: Demonstrate some hip flexion in the seated position. He also can fully extend his knee. There is positive dorsiflexion, plantarflexion, and EHL activity. He is neurovascular intact. Skin: no rashes, warm and dry Incision is covered with what appears to be the post-operative dressing. Dressing is dry with no signs of saturation. Neurologic: normal touch/pain/proprioception and moves all extremities Psychiatric: Orientation: alert and oriented x 3 Apperance: appeared stated age Eye Contact: good eye contact Results & Data ([facility]) Vital Signs (Past 12 Hours) Vital Signs Temp Pulse Pulse Resp BP BP Pulse Ox 02/12/20 15:01 36.6 C 82 20 124/68 94 02/12/20 14:47 36.5 C 85 18 135/67 96 02/12/20 14:44 36.5 C 75 20 127/84 96 02/12/20 13:25 36.5 C 75 18 125/72 95 02/12/20 12:25 36.8 C 73 20 131/71 95 02/12/20 11:55 36.6 C 77 20 127/68 96 02/12/20 11:53 37.0 C 86 18 120/76 95 02/12/20 11:40 36.6 C 79 18 132/72 95 02/12/20 11:21 36.5 C 80 20 119/72 95 02/12/20 09:59 36.6 C 88 20 115/73 98 PG Care Time/CCT Total # of Minutes Spent Total Time Spent with Patient: Total time spent is greater than 50% in coordination of care (as documented) at patient's floor/unit and/or counseling patient: Coding Level of Care Code None Diagnoses Intertrochanteric fracture of left femur S72.142A Encounter type: initial encounter Fracture type: closed Fracture alignment: displaced (1) Intertrochanteric fracture of left femur Encounter type: initial encounter Fracture type: closed Fracture alignment: displaced Qualified Code(s): S72.142A - Displaced intertrochanteric fracture of left femur, initial encounter for closed fracture
[2020-02-12] MEDS: WARFARIN SOD 7.5 MG TAB PO SCH (16:51)
[2020-02-12] MEDS: HEPARIN SODIUM/DEXTROSE 25,000 UNITS/500 ML BAG IV SCH (18:34)
[2020-02-12] MEDS: LIDOCAINE 5% 1 PATCH TD SCH (20:29)
[2020-02-12] MEDS: DOCUSATE SODIUM/SENNA 50/8.6MG TAB PO SCH (20:30)
[2020-02-13 05:37] LABS: Basophils # (auto) 0.02 K/uL (0-0.2); Basophils % (auto) 0.2 %; Eosinophils # (auto) 0.71 K/uL (0-0.5); Eosinophils % (auto) 5.9 %; Hematocrit (blood only) 26.2 % (42-52); Hemoglobin 8.8 g/dL (14.0-18.0); Immature Granulocytes # (auto) 0.05 K/uL (0.00-0.02); Immature Granulocytes % (auto) 0.4 %; Lymphocytes # (auto) 0.64 K/uL (1.2-3.4); Lymphocytes % (auto) 5.3 %; Mean Corpuscular Hemoglobin 27.5 pg (25-34); Mean Corpuscular Hgb Conc 33.6 g/dL (32-36); Mean Corpuscular Volume 81.9 fL (80-100); Mean Platelet Volume 10.4 fL (7.4-10.4); Monocytes # (auto) 1.56 K/uL (0.11-0.59); Monocytes % (auto) 12.9 %; Neutrophils # (auto) 9.12 K/uL (1.4-6.5); Neutrophils % (auto) 75.3 %; Platelet Count 162 K/uL (130-400); RDW Coefficient of Variation 14.2 % (11.5-14.5); RDW Standard Deviation 42.3 fL (36.4-46.3)
[2020-02-13 06:14] LABS: Calcium 8.1 mg/dl (8.5-10.1); Creatinine Clr Calc Pharmacy 107.6 ml/min; Est GFR (African American) 114.3; Est GFR (Non-African American) 98.6; Magnesium 2.3 mg/dl (1.8-2.4); Potassium 4.1 mmol/L (3.5-5.1)
[2020-02-13 06:17] LABS: INR 1.7 (0.9-1.1); Partial Thromboplastin Ratio 2.2; Prothrombin Time 17.7 Seconds (9.0-12.0)
[2020-02-13 06:23] LABS: Partial Thromboplastin Time 60.8 Seconds (21.0-31.0)
[2020-02-13] MEDS: METOPROLOL SUCC 25MG EXT REL TAB PO SCH (08:23)
[2020-02-13] MEDS: lisinopriL 10 MG TAB PO SCH (08:23)
--- NOTE | 2020-02-13 14:02 | Hospitalist Progress Note ---
Date of Service February 13, 2020 Assessment & Plan (1) Subcapital fracture of left hip: Left Hip fracture S/P mechanical Fall CT head:No acute intracranial abnormality. Atrophy and considerable age-related chronic small vessel change. Neck CT:There is no evidence of fracture or subluxation involving the cervical spine. Osteopenia and spondylotic change as above. Hip X ray:Slightly displaced intertrochanteric fracture of the proximal left femur. Appreciate Ortho input and recommendation Appreciate cardiology input and medical clearance with complex cardiac history Status post left hip trochanteric nail placement on 02/10/2020 Patient remains stable and management will be as per orthopedic surgeon Hemoglobin dropped to 8.0 Likely secondary to acute blood loss Given the history of cardiac disease and the patient being symptomatic will transfuse with 2 units of PRBC Hemoglobin went up to 8.8 from 8 following 2 units of blood transfusion No evidence of bleeding Will monitor CBC DVT Px on IV heparin Orthopedics consulted - plan for surgical intervention tomorrow (02/10/20) NPO after midnight bowel regimen to prevent constipation PT/OT as able May need rehab Monitor for for post op anemia Preop COVID 19 was negative INR is 1.5 today 02/12/2020 We will monitor INR-1.7 today We will continue heparin and Coumadin ~INR is therapeutic at 2.5 Hypertensive urgency Noted to have high blood pressure at presentation with history of hypertension Likely situational secondary to pain Continue lisinopril, metoprolol PO Hydralazine PRN Blood pressure seems to be controlled Hyponatremia Sodium 134 Gentle IV fluids Monitor sodium levels Sodium levels remain around 133 as of 02/10/2020 Sodium level remains around 131And again 131 today CAD S/P CABG X 5 H/O Ischemic cardiomyopathy 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 Continue aspirin, statin, metoprolol, lisinopril Appreciate cardiology input and recommendation No cardiac symptoms H/O rheumatic aortic valve disease S/P mechanical aortic valve on chronic Coumadin therapy INR:2.5 Hold Coumadin for now Received vitamin K intravenously prior to surgery On IV heparin and started with oral Coumadin INR is 1.5 on 02/12/2020 Atrial fibrillation Rate controlled Continue metoprolol On IV heparin for anticoagulation Monitor INR-1.31 02/11/2020 Hyperlipidemia On Statin DVT Px: on IV heparin Code Status Full Code Admission and Anticipated Discharge Date Admission Date: February 08, 2020 Subjective The patient was seen and examined in telemetry unit He is a status post fall with left hip fracture Will have surgery sometime this morning Complains today of pain in the left hip otherwise unremarkable 02/11/2020 The patient was seen and examined in telemetry unit Status post left hip trochanteric nail insertion Complains of minimal pain with movement left hip but denies any other symptoms 02/12/2020 The patient was seen and examined in telemetry unit He looks pale and complains today of weakness Denies any chest pain and/or palpitation, no abdominal pain nausea and/or vomiting 02/13/2020 The patient was seen and examined in telemetry unit He has been feeling a lot better following blood transfusion He is getting physical therapy Medically not yet ready to be discharged Review of Systems Review of Systems: All systems reviewed and are unremarkable except as noted below Musculoskeletal: Left hip pain on movement Physical Exam Physical Exam: Lying in bed comfortably Constitutional: well developed, well nourished and + obese; no acute distress and not ill appearing Eyes: PERRL, conjunctivae normal, anicteric sclerae ENMT: external ear and nose normal, oropharynx normal Neck: trachea midline, no thyromegaly Respiratory: normal respiratory effort; no respiratory distress Auscultation: lungs clear to auscultation bilaterally Cardiovascular: Rate/Rhythm: regular rate and regular rhythm Heart Sounds: + murmur Gastrointestinal (Abdomen): Inspection/Auscultation: abdomen normal to inspection and normal bowel sounds; abdomen not distended Percussion/Palpation: abdomen soft; abdomen nontender Musculoskeletal: Head/Neck/Chest: + head abnormal to inspection and normocephalic Some pain with movement of the right lower extremity Neurologic: moves all extremities; no focal motor deficits Alert, awake and oriented x3 Lymphatic: no cervical or axillary lymphadenopathy Results & Data Results & Data ([facility]) Vital Signs (Past 12 Hours) Vital Signs Temp Pulse Pulse Pulse Resp BP BP 02/13/20 11:00 37.2 C 73 17 109/71 02/13/20 07:48 81 02/13/20 07:17 36.7 C 82 18 136/73 02/13/20 03:30 36.5 C 76 18 117/66 Pulse Ox 02/13/20 11:00 96 02/13/20 07:48 02/13/20 07:17 100 02/13/20 03:30 99 Laboratory Results Short CBC 02/13/20 Range/Units 04:29 WBC 12.10 H (4.8-10.8) K/uL Hgb 8.8 L (14.0-18.0) g/dL Hct 26.2 L (42-52) % Plt Count 162 (130-400) K/uL BMP 02/13/20 04:29 Sodium 131 L Potassium 4.1 Chloride 98 Carbon Dioxide 26 BUN 22 H Creatinine 0.52 L Glucose 95 Calcium 8.1 L Medications Administered Current Inpatient Medications Acetaminophen (Tylenol) 650 mg PO Q4H PRN PRN Reason: Pain or Fever Stop: 03/09/20 19:29 Last Admin: 02/10/20 23:51 Dose: 650 mg Documented by: Bisacodyl (Dulcolax) 10 mg [place] DAILY PRN PRN Reason: Constipation Stop: 03/09/20 19:29 Hydralazine HCl (Apresoline) 5 mg PO Q6H PRN PRN Reason: Hypertension Stop: 03/09/20 20:14 Promethazine HCl 6.25 mg/ (Sodium Chloride) 50.25 mls @ 201 mls/hr IV Q6H PRN PRN Reason: Nausea And Vomiting Stop: 03/09/20 19:29 Heparin Sodium/Dextrose (Heparin Sodium/Dextrose) 25,000 units in 500 mls @ 22 mls/hr IV .[id number] [facility]; Protocol Stop: 03/11/20 19:27 Last Titration: 02/13/20 06:50 Dose: 1,100 units/hr, 22 mls/hr Documented by: Lidocaine (Lidoderm 5%) 1 patch TD DAILY@2100 [facility] Stop: 03/10/20 18:44 Last Admin: 02/12/20 20:29 Dose: 1 patch Documented by: Lisinopril (Zestril) 10 mg PO [facility] Stop: 03/13/20 08:59 Last Admin: 02/13/20 08:23 Dose: 10 mg Documented by: Magnesium Hydroxide (Milk Of Magnesia) 30 ml PO DAILY PRN PRN Reason: Constipation Stop: 03/09/20 19:29 Last Admin: 02/11/20 19:23 Dose: 30 ml Documented by: Metoprolol Succinate (Toprol Xl) 25 mg PO [facility] Stop: 03/12/20 10:59 Last Admin: 02/13/20 08:23 Dose: 25 mg Documented by: Miscellaneous (Remove Lidoderm Patch) 1 ea N/A DAILY@0900 [facility] Stop: 03/10/20 20:59 Last Admin: 02/13/20 08:23 Dose: 1 ea Documented by: Morphine Sulfate (Morphine Sulfate) 2 mg IV Q2H PRN PRN Reason: MODERATE Pain (Scale 4,5,6) Stop: 02/22/20 19:29 Last Admin: 02/09/20 11:15 Dose: 2 mg Documented by: Naloxone HCl (Narcan) 0.1 mg IV UD PRN PRN Reason: Opiate Overdose Stop: 03/09/20 19:29 Oxycodone HCl (Roxicodone Immediate Rel) 5 mg PO Q4H PRN PRN Reason: MODERATE Pain (Scale 4,5,6) Stop: 02/22/20 19:29 Last Admin: 02/09/20 17:16 Dose: 5 mg Documented by: Polyethylene Glycol (Miralax Powder Packet) 17 gm PO DAILY PRN PRN Reason: Constipation Stop: 03/09/20 19:29 Senna/Docusate Sodium (Senokot S) 2 tab PO HS [facility] Stop: 03/09/20 20:59 Last Admin: 02/12/20 20:30 Dose: Not Given Documented by: Warfarin Sodium (Coumadin) 7.5 mg PO DAILY@1600 [facility] Stop: 03/12/20 15:59 Last Admin: 02/12/20 16:51 Dose: 7.5 mg Documented by: (1) Subcapital fracture of left hip Encounter type: initial encounter Fracture type: closed Qualified Code(s): S72.012A - Unspecified intracapsular fracture of left femur, initial encounter for closed fracture
[2020-02-13] MEDS: HEPARIN SODIUM/DEXTROSE 25,000 UNITS/500 ML BAG IV SCH (14:40)
--- NOTE | 2020-02-13 17:03 | Cardiology Progress Note ---
Date of Service February 13, 2020 Assessment & Plan (1) Intertrochanteric fracture of left femur: -Status post mechanical fall, left intertrochanteric left femur fracture, for which patient underwent left hip nail placement 02/10/2020 -Acute postoperative blood loss anemia patient requiring chronic anticoagulation Outpatient cardiology problem list: 1.Coronary artery disease status post CABG x5. 2.History of rheumatic aortic valve disease, status post mechanical aortic valve replacement, on chronic Coumadin therapy. 3.Permanent atrial fibrillation. 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 6.Hypertension. 7.Hyperlipidemia. 8.Chronic intraventricular conduction delay. PLAN: Continue cautious heparin infusion, continue Coumadin loading, 7.5 mg daily. Recheck INR tomorrow. Subjective Patient seen in follow-up. He is comfortable sitting in the bedside chair. He notes that he still feels unstable on his feet status post left hip surgery. Telemetry reveals rate controlled atrial fibrillation at 80 bpm. He is on a heparin infusion. Review of Systems Review of Systems: All systems reviewed & are unremarkable except as noted in HPI & below Physical Exam Physical Exam: Temp Pulse Resp BP Pulse Ox 37.2 C 76 16 103/58 L 100 02/13/20 15:56 02/13/20 15:56 02/13/20 15:56 02/13/20 15:56 02/13/20 15:56 Constitutional: WD/WN, vitals as above Respiratory: normal respiratory effort, lungs clear to auscultation Cardiovascular: Rate/Rhythm: + irregularly irregular Vessels: no JVD Extremities: + edema (Trace edema in his postoperative left lower leg) Mechanical heart valve sounds noted Gastrointestinal (Abdomen): normal bowel sounds, soft, nontender, no hepatosplenomegaly Neurologic: PERRL, EOMI, accommodation nl, no face palsy, no dysarthria Results & Data Vital Signs (Past 12 Hours) Vital Signs Temp Pulse Pulse Pulse Resp BP BP 02/13/20 15:56 37.2 C 76 16 103/58 L 02/13/20 11:00 37.2 C 73 17 109/71 02/13/20 07:48 81 02/13/20 07:17 36.7 C 82 18 136/73 Pulse Ox 02/13/20 15:56 100 02/13/20 11:00 96 02/13/20 07:48 02/13/20 07:17 100 Laboratory Results 02/13/2020: INR 1.7 PTT 60.8 seconds Hemoglobin 8.8 compared to 8 on 02/12/2020, and 8.4 on 02/11/2020, 11.8 on 02/09/2020 Platelet count stable, 162 (1) Intertrochanteric fracture of left femur Encounter type: initial encounter Fracture type: closed Fracture alignment: displaced Qualified Code(s): S72.142A - Displaced intertrochanteric fracture of left femur, initial encounter for closed fracture
[2020-02-13] MEDS: WARFARIN SOD 7.5 MG TAB PO SCH (17:16)
[2020-02-13] MEDS: LIDOCAINE 5% 1 PATCH TD SCH (20:55)
[2020-02-13] MEDS: DOCUSATE SODIUM/SENNA 50/8.6MG TAB PO SCH (20:56)
[2020-02-13] MEDS ORDERED: MELATONIN 3 MG TAB PO PRN (21:10)
[2020-02-14 07:40] LABS: Partial Thromboplastin Ratio 2.6; Prothrombin Time 20.1 Seconds (9.0-12.0)
[2020-02-14 07:44] LABS: Partial Thromboplastin Time 73.2 Seconds (21.0-31.0)
[2020-02-14] MEDS: METOPROLOL SUCC 25MG EXT REL TAB PO SCH (08:20)
[2020-02-14] MEDS: lisinopriL 10 MG TAB PO SCH (08:21)
[2020-02-14] MEDS: HEPARIN SODIUM/DEXTROSE 25,000 UNITS/500 ML BAG IV SCH ×4 (08:56→15:40)
[2020-02-14] MEDS: ACETAMINOPHEN 325 MG TAB PO PRN (11:31)
--- NOTE | 2020-02-14 12:37 | Hospitalist Progress Note ---
Date of Service February 14, 2020 Assessment & Plan (1) Subcapital fracture of left hip: Left Hip fracture S/P mechanical Fall CT head:No acute intracranial abnormality. Atrophy and considerable age-related chronic small vessel change. Neck CT:There is no evidence of fracture or subluxation involving the cervical spine. Osteopenia and spondylotic change as above. Hip X ray:Slightly displaced intertrochanteric fracture of the proximal left femur. Appreciate Ortho input and recommendation Appreciate cardiology input and medical clearance with complex cardiac history Status post left hip trochanteric nail placement on 02/10/2020 Patient remains stable and management will be as per orthopedic surgeon Like to be transferred for rehab tomorrow Hemoglobin dropped to 8.0 Likely secondary to acute blood loss Given the history of cardiac disease and the patient being symptomatic will transfuse with 2 units of PRBC Hemoglobin went up to 8.8 from 8 following 2 units of blood transfusion No evidence of bleeding Check CBC tomorrow DVT Px on IV heparin Orthopedics consulted - plan for surgical intervention tomorrow (02/10/20) NPO after midnight bowel regimen to prevent constipation PT/OT as able May need rehab Monitor for for post op anemia Preop COVID 19 was negative INR is 1.5 today 02/12/2020 We will monitor INR-1.7 today We will continue heparin and Coumadin ~INR is therapeutic at 2.5 INR is 2.0 today and will continue heparin and Coumadin Recheck in the morning Hypertensive urgency Noted to have high blood pressure at presentation with history of hypertension Likely situational secondary to pain Continue lisinopril, metoprolol PO Hydralazine PRN Blood pressure seems to be controlled Hyponatremia Sodium 134 Gentle IV fluids Monitor sodium levels Sodium levels remain around 133 as of 02/10/2020 Sodium level remains around 131And again 131 today CAD S/P CABG X 5 H/O Ischemic cardiomyopathy 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 Continue aspirin, statin, metoprolol, lisinopril Appreciate cardiology input and recommendation No cardiac symptoms H/O rheumatic aortic valve disease S/P mechanical aortic valve on chronic Coumadin therapy INR:2.5 Hold Coumadin for now Received vitamin K intravenously prior to surgery On IV heparin and started with oral Coumadin INR is 2.0 today 02/14/2020 Atrial fibrillation Rate controlled Continue metoprolol Denies any acute symptoms Hyperlipidemia On Statin DVT Px: on IV heparin Code Status Full Code Admission and Anticipated Discharge Date Admission Date: February 08, 2020 Subjective The patient was seen and examined in telemetry unit He is a status post fall with left hip fracture Will have surgery sometime this morning Complains today of pain in the left hip otherwise unremarkable 02/11/2020 The patient was seen and examined in telemetry unit Status post left hip trochanteric nail insertion Complains of minimal pain with movement left hip but denies any other symptoms 02/12/2020 The patient was seen and examined in telemetry unit He looks pale and complains today of weakness Denies any chest pain and/or palpitation, no abdominal pain nausea and/or vomiting 02/13/2020 The patient was seen and examined in telemetry unit He has been feeling a lot better following blood transfusion He is getting physical therapy Medically not yet ready to be discharged 02/14/2020 The patient was seen and examined in telemetry unit He does not have any complaints of chest pain, shortness of breath or palpitation He is a status post left femoral intratrochanteric repair for fracture and waiting to go to rehab Review of Systems Review of Systems: All systems reviewed and are unremarkable except as noted below Musculoskeletal: Left hip pain on movement Physical Exam Physical Exam: Lying in bed comfortably Constitutional: well developed, well nourished and + obese; no acute distress and not ill appearing Eyes: PERRL, conjunctivae normal, anicteric sclerae ENMT: external ear and nose normal, oropharynx normal Neck: trachea midline, no thyromegaly Respiratory: normal respiratory effort, lungs clear to auscultation normal respiratory effort; no respiratory distress Auscultation: lungs clear to auscultation bilaterally Cardiovascular: Rate/Rhythm: regular rate and regular rhythm Heart Sounds: + murmur Gastrointestinal (Abdomen): Inspection/Auscultation: abdomen normal to inspection and normal bowel sounds; abdomen not distended Percussion/Palpation: abdomen soft; abdomen nontender Musculoskeletal: Head/Neck/Chest: + head abnormal to inspection and normocephalic No significant pain in any joints Neurologic: moves all extremities; no focal motor deficits Alert, awake and oriented x3 Lymphatic: no cervical or axillary lymphadenopathy Results & Data Results & Data ([facility]) Vital Signs (Past 12 Hours) Vital Signs Temp Pulse Pulse Resp BP Pulse Ox 02/14/20 11:50 37.2 C 80 18 115/60 99 06/28/20 07:30 82 02/14/20 07:03 36.6 C 72 18 148/77 H 97 02/14/20 05:00 36.3 C L 90 18 152/78 H 96 Medications Administered Current Inpatient Medications Acetaminophen (Tylenol) 650 mg PO Q4H PRN PRN Reason: Pain or Fever Stop: 03/09/20 19:29 Last Admin: 02/14/20 11:31 Dose: 650 mg Documented by: Bisacodyl (Dulcolax) 10 mg [place] DAILY PRN PRN Reason: Constipation Stop: 03/09/20 19:29 Hydralazine HCl (Apresoline) 5 mg PO Q6H PRN PRN Reason: Hypertension Stop: 03/09/20 20:14 Promethazine HCl 6.25 mg/ (Sodium Chloride) 50.25 mls @ 201 mls/hr IV Q6H PRN PRN Reason: Nausea And Vomiting Stop: 03/09/20 19:29 Heparin Sodium/Dextrose (Heparin Sodium/Dextrose) 25,000 units in 500 mls @ 21 mls/hr IV .[id number] REPLACED BY [facility]; Protocol Stop: 03/11/20 19:27 Last Admin: 02/14/20 11:29 Dose: 1,050 units/hr, 21 mls/hr Documented by: Lidocaine (Lidoderm 5%) 1 patch TD DAILY@2100 REPLACED BY [facility] Stop: 03/10/20 18:44 Last Admin: 02/13/20 20:55 Dose: 1 patch Documented by: Lisinopril (Zestril) 10 mg PO [facility] Stop: 03/13/20 08:59 Last Admin: 02/14/20 08:21 Dose: 10 mg Documented by: Magnesium Hydroxide (Milk Of Magnesia) 30 ml PO DAILY PRN PRN Reason: Constipation Stop: 03/09/20 19:29 Last Admin: 02/11/20 19:23 Dose: 30 ml Documented by: Melatonin (Melatonin) 3 mg PO HS PRN PRN Reason: Sleep Stop: 03/14/20 21:09 Last Admin: 02/13/20 22:58 Dose: 3 mg Documented by: Metoprolol Succinate (Toprol Xl) 25 mg PO [facility] Stop: 03/12/20 10:59 Last Admin: 02/14/20 08:20 Dose: 25 mg Documented by: Miscellaneous (Remove Lidoderm Patch) 1 ea N/A DAILY@0900 REPLACED BY [facility] Stop: 03/10/20 20:59 Last Admin: 02/14/20 08:20 Dose: 1 ea Documented by: Morphine Sulfate (Morphine Sulfate) 2 mg IV Q2H PRN PRN Reason: MODERATE Pain (Scale 4,5,6) Stop: 02/22/20 19:29 Last Admin: 02/09/20 11:15 Dose: 2 mg Documented by: Naloxone HCl (Narcan) 0.1 mg IV UD PRN PRN Reason: Opiate Overdose Stop: 03/09/20 19:29 Oxycodone HCl (Roxicodone Immediate Rel) 5 mg PO Q4H PRN PRN Reason: MODERATE Pain (Scale 4,5,6) Stop: 02/22/20 19:29 Last Admin: 02/09/20 17:16 Dose: 5 mg Documented by: Polyethylene Glycol (Miralax Powder Packet) 17 gm PO DAILY PRN PRN Reason: Constipation Stop: 03/09/20 19:29 Senna/Docusate Sodium (Senokot S) 2 tab PO HS REPLACED BY [facility] Stop: 03/09/20 20:59 Last Admin: 02/13/20 20:56 Dose: 2 tab Documented by: Warfarin Sodium (Coumadin) 7.5 mg PO DAILY@1600 REPLACED BY [facility] Stop: 03/12/20 15:59 Last Admin: 02/13/20 17:16 Dose: 7.5 mg Documented by: (1) Subcapital fracture of left hip Encounter type: initial encounter Fracture type: closed Qualified Code(s): S72.012A - Unspecified intracapsular fracture of left femur, initial encounter for closed fracture
--- NOTE | 2020-02-14 14:35 | Communication Note ---
Date of Service: February 14, 2020 Patient participating in physical therapy at the time of my assessment, and making slow but steady progress. Hemoglobin stable. INR today is 2. His aortic valve prosthesis was placed in 2002, and given the age of the prosthesis, I believe his goal INR should be 2.5-3.5. We will continue heparin drip, and continue Coumadin loading. Discussed with Dr. Carrington.
[2020-02-14 14:45] LABS: Partial Thromboplastin Ratio 1.3; Partial Thromboplastin Time 36.3 Seconds (21.0-31.0)
[2020-02-14 15:15] LABS: Partial Thromboplastin Ratio 1.4; Partial Thromboplastin Time 37.7 Seconds (21.0-31.0)
[2020-02-14] MEDS: WARFARIN SOD 7.5 MG TAB PO SCH (15:31)
[2020-02-14] MEDS ORDERED: HEPARIN IV BOLUS 6,000 UNITS in SYRINGE 0 ML IV ONE (16:00)
[2020-02-14] MEDS: LIDOCAINE 5% 1 PATCH TD SCH (20:31)
[2020-02-14] MEDS: DOCUSATE SODIUM/SENNA 50/8.6MG TAB PO SCH (20:31)
[2020-02-14 23:13] LABS: Partial Thromboplastin Time 125.7 Seconds (21.0-31.0)
[2020-02-14 23:14] LABS: Partial Thromboplastin Ratio 4.5
[2020-02-15] MEDS ORDERED: LORazepam 0.5 MG TAB PO STA (02:11)
[2020-02-15 07:46] LABS: Basophils # (auto) 0.03 K/uL (0-0.2); Basophils % (auto) 0.3 %; Eosinophils # (auto) 0.51 K/uL (0-0.5); Eosinophils % (auto) 4.8 %; Hematocrit (blood only) 25.3 % (42-52); Hemoglobin 8.5 g/dL (14.0-18.0); Immature Granulocytes % (auto) 0.9 %; Lymphocytes # (auto) 0.56 K/uL (1.2-3.4); Lymphocytes % (auto) 5.2 %; Mean Corpuscular Hemoglobin 28.2 pg (25-34); Mean Corpuscular Hgb Conc 33.6 g/dL (32-36); Mean Corpuscular Volume 84.1 fL (80-100); Mean Platelet Volume 9.8 fL (7.4-10.4); Monocytes # (auto) 1.33 K/uL (0.11-0.59); Monocytes % (auto) 12.5 %; Neutrophils # (auto) 8.14 K/uL (1.4-6.5); Neutrophils % (auto) 76.3 %; Platelet Count 217 K/uL (130-400); RDW Coefficient of Variation 14.7 % (11.5-14.5); RDW Standard Deviation 44.7 fL (36.4-46.3); Red Blood Count 3.01 M/uL (4.7-6.1); White Blood Count 10.67 K/uL (4.8-10.8)
[2020-02-15 08:09] LABS: Partial Thromboplastin Ratio 3.1
[2020-02-15 08:11] LABS: Partial Thromboplastin Time 86.8 Seconds (21.0-31.0)
[2020-02-15 08:27] LABS: BUN Creatinine Ratio 23.2 (10-20); Creatinine Clr Calc Pharmacy 124.4 ml/min; Est GFR (African American) 121.3; Est GFR (Non-African American) 104.6; Magnesium 1.9 mg/dl (1.8-2.4); Potassium 4.3 mmol/L (3.5-5.1)
[2020-02-15] MEDS: METOPROLOL SUCC 25MG EXT REL TAB PO SCH (08:58)
[2020-02-15] MEDS: lisinopriL 10 MG TAB PO SCH (08:58)
[2020-02-15 09:29] LABS: INR 2.5 (0.9-1.1); Prothrombin Time 24.8 Seconds (9.0-12.0)
--- NOTE | 2020-02-15 13:10 | Hospitalist Progress Note ---
Date of Service February 15, 2020 Assessment & Plan (1) Subcapital fracture of left hip: Left Hip fracture S/P mechanical Fall CT head:No acute intracranial abnormality. Atrophy and considerable age-related chronic small vessel change. Neck CT:There is no evidence of fracture or subluxation involving the cervical spine. Osteopenia and spondylotic change as above. Hip X ray:Slightly displaced intertrochanteric fracture of the proximal left femur. Appreciate Ortho input and recommendation Appreciate cardiology input and medical clearance with complex cardiac history Status post left hip trochanteric nail placement on 02/10/2020 Patient remains stable and management will be as per orthopedic surgeon Will be transferred to rehab today Hemoglobin dropped to 8.0 Likely secondary to acute blood loss Given the history of cardiac disease and the patient being symptomatic will transfuse with 2 units of PRBC Hemoglobin went up to 8.8 from 8 following 2 units of blood transfusion No evidence of bleeding Check CBC tomorrow-remains at 8.5 DVT Px on IV heparin Orthopedics consulted - plan for surgical intervention tomorrow (02/10/20) NPO after midnight bowel regimen to prevent constipation PT/OT as able May need rehab Monitor for for post op anemia Preop COVID 19 was negative INR is 1.5 today 02/12/2020 We will monitor INR-1.7 today We will continue heparin and Coumadin ~INR is therapeutic at 2.5 INR is 2.0 today and will continue heparin and Coumadin INR is 2.5 today, will discontinue heparin and discharge the patient for rehab Hypertensive urgency Noted to have high blood pressure at presentation with history of hypertension Likely situational secondary to pain Continue lisinopril, metoprolol PO Hydralazine PRN Blood pressure seems to be controlled Hyponatremia Sodium 134 Gentle IV fluids Monitor sodium levels Sodium levels remain around 133 as of 02/10/2020 Sodium level remains around 131And again 131 today Sodium is low at 128 We will continue with fluid restriction CAD S/P CABG X 5 H/O Ischemic cardiomyopathy 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 Continue aspirin, statin, metoprolol, lisinopril Appreciate cardiology input and recommendation No cardiac symptoms H/O rheumatic aortic valve disease S/P mechanical aortic valve on chronic Coumadin therapy INR:2.5 Hold Coumadin for now Received vitamin K intravenously prior to surgery On IV heparin and started with oral Coumadin INR is 2.5 today Discharge to rehab today Atrial fibrillation Rate controlled Continue metoprolol Denies any acute symptoms Hyperlipidemia On Statin DVT Px: on IV heparin Code Status Full Code Admission and Anticipated Discharge Date Admission Date: February 08, 2020 Subjective The patient was seen and examined in telemetry unit He is a status post fall with left hip fracture Will have surgery sometime this morning Complains today of pain in the left hip otherwise unremarkable 02/11/2020 The patient was seen and examined in telemetry unit Status post left hip trochanteric nail insertion Complains of minimal pain with movement left hip but denies any other symptoms 02/12/2020 The patient was seen and examined in telemetry unit He looks pale and complains today of weakness Denies any chest pain and/or palpitation, no abdominal pain nausea and/or vomiting 02/13/2020 The patient was seen and examined in telemetry unit He has been feeling a lot better following blood transfusion He is getting physical therapy Medically not yet ready to be discharged 02/14/2020 The patient was seen and examined in telemetry unit He does not have any complaints of chest pain, shortness of breath or palpitation He is a status post left femoral intratrochanteric repair for fracture and waiting to go to rehab 02/15/2020 The patient was seen and examined in the telemetry unit He has been feeling a lot better today Only complaints remains to be weak Minimal pain with movement Review of Systems Review of Systems: All systems reviewed and are unremarkable except as noted below Musculoskeletal: Left hip pain on movement Physical Exam Physical Exam: Lying in bed comfortably Constitutional: well developed, well nourished and + obese; no acute distress and not ill appearing Eyes: PERRL, conjunctivae normal, anicteric sclerae ENMT: external ear and nose normal, oropharynx normal Neck: trachea midline, no thyromegaly Respiratory: normal respiratory effort, lungs clear to auscultation normal respiratory effort; no respiratory distress Auscultation: lungs clear to auscultation bilaterally Cardiovascular: Rate/Rhythm: regular rate and regular rhythm Heart Sounds: + murmur Gastrointestinal (Abdomen): Inspection/Auscultation: abdomen normal to inspection and normal bowel sounds; abdomen not distended Percussion/Palpation: abdomen soft; abdomen nontender Musculoskeletal: No acute arthritis involving any joints Neurologic: moves all extremities; no focal motor deficits Lymphatic: no cervical or axillary lymphadenopathy Results & Data Results & Data ([facility]) Vital Signs (Past 12 Hours) Vital Signs Temp Pulse Pulse Resp BP BP Pulse Ox 02/15/20 11:28 36.4 C L 64 18 135/64 100 02/15/20 07:58 36.6 C 80 18 134/76 95 02/15/20 07:20 68 02/15/20 02:57 36.7 C 69 17 147/71 H 95 Laboratory Results Short CBC 02/15/20 Range/Units 07:14 WBC 10.67 (4.8-10.8) K/uL Hgb 8.5 L (14.0-18.0) g/dL Hct 25.3 L (42-52) % Plt Count 217 (130-400) K/uL BMP 02/15/20 07:14 Sodium 128 L Potassium 4.3 Chloride 95 L Carbon Dioxide 25 BUN 10 Creatinine 0.45 L Glucose 97 Calcium 8.0 L Medications Administered Current Inpatient Medications Acetaminophen (Tylenol) 650 mg PO Q4H PRN PRN Reason: Pain or Fever Stop: 03/09/20 19:29 Last Admin: 02/14/20 11:31 Dose: 650 mg Documented by: Bisacodyl (Dulcolax) 10 mg MA DAILY PRN PRN Reason: Constipation Stop: 03/09/20 19:29 Hydralazine HCl (Apresoline) 5 mg PO Q6H PRN PRN Reason: Hypertension Stop: 03/09/20 20:14 Promethazine HCl 6.25 mg/ (Sodium Chloride) 50.25 mls @ 201 mls/hr IV Q6H PRN PRN Reason: Nausea And Vomiting Stop: 03/09/20 19:29 Lidocaine (Lidoderm 5%) 1 patch TD DAILY@2100 [facility] Stop: 03/10/20 18:44 Last Admin: 02/14/20 20:31 Dose: 1 patch Documented by: Lisinopril (Zestril) 10 mg PO QAM [facility] Stop: 03/13/20 08:59 Last Admin: 02/15/20 08:58 Dose: 10 mg Documented by: Magnesium Hydroxide (Milk Of Magnesia) 30 ml PO DAILY PRN PRN Reason: Constipation Stop: 03/09/20 19:29 Last Admin: 02/11/20 19:23 Dose: 30 ml Documented by: Melatonin (Melatonin) 3 mg PO HS PRN PRN Reason: Sleep Stop: 03/14/20 21:09 Last Admin: 02/13/20 22:58 Dose: 3 mg Documented by: Metoprolol Succinate (Toprol Xl) 25 mg PO QAM [facility] Stop: 03/12/20 10:59 Last Admin: 02/15/20 08:58 Dose: 25 mg Documented by: Miscellaneous (Remove Lidoderm Patch) 1 ea N/A DAILY@0900 [facility] Stop: 03/10/20 20:59 Last Admin: 02/15/20 08:58 Dose: 1 ea Documented by: Morphine Sulfate (Morphine Sulfate) 2 mg IV Q2H PRN PRN Reason: MODERATE Pain (Scale 4,5,6) Stop: 02/22/20 19:29 Last Admin: 02/09/20 11:15 Dose: 2 mg Documented by: Naloxone HCl (Narcan) 0.1 mg IV UD PRN PRN Reason: Opiate Overdose Stop: 03/09/20 19:29 Oxycodone HCl (Roxicodone Immediate Rel) 5 mg PO Q4H PRN PRN Reason: MODERATE Pain (Scale 4,5,6) Stop: 02/22/20 19:29 Last Admin: 02/09/20 17:16 Dose: 5 mg Documented by: Polyethylene Glycol (Miralax Powder Packet) 17 gm PO DAILY PRN PRN Reason: Constipation Stop: 03/09/20 19:29 Senna/Docusate Sodium (Senokot S) 2 tab PO [facility] Stop: 03/09/20 20:59 Last Admin: 02/14/20 20:31 Dose: Not Given Documented by: Warfarin Sodium (Coumadin) 7.5 mg PO DAILY@1600 [facility] Stop: 03/12/20 15:59 Last Admin: 02/14/20 15:31 Dose: 7.5 mg Documented by: (1) Subcapital fracture of left hip Encounter type: initial encounter Fracture type: closed Qualified Code(s): S72.012A - Unspecified intracapsular fracture of left femur, initial encounter for closed fracture
--- NOTE | 2020-02-15 14:31 | Cardiology Progress Note ---
Date of Service February 15, 2020 Assessment & Plan (1) Intertrochanteric fracture of left femur: Patient presented with a mechanical fall, with resultant left intertrochanteric femur fracture, for which he underwent surgical nailing Permanent atrial fibrillation History of CABG, mechanical AVR, 2002 Postoperative acute blood loss anemia Plan: Given the age of his valve, goal INR would be 2.5-3.5. Heparin is therefore been discontinued as his INR is 2.5 today. Hemoglobin is stable, 8.5, compared to 8.8 yesterday, and he had received 2 units of packed red blood cells earlier this hospital stay. He is typically on aspirin 81 mg daily for stroke prophylaxis given mechanical aortic valve, and for his coronary disease, but I think that in light of the postoperative left thigh hematoma it is most prudent for us to hold off on aspirin for at least 1 week. He is to receive 5 mg of Coumadin today, and having been loaded with 7.5 mg daily for the last few days. He was typical home dose of Coumadin is 7.5 mg on Mondays, Wednesdays, and Fridays, and 5 mg the other days. For now, we will discharge him on 5 mg daily. Sodium is little bit low today, but I do not think this needs to hold up his discharge. Case discussed with Dr. Carrington. Subjective Mr Tammi is seen in cardiology follow-up today. Rate controlled atrial fibrillation is noted on exam and on telemetry. He has some postoperative swelling of his left thigh, with mild ecchymosis at the medial aspect of the thigh. He has been increasing his mobility slowly. Heparin has been discontinued as his INR is at goal today at 2.5. Physical Exam Physical Exam: Temp Pulse Resp BP Pulse Ox 36.4 C L 64 18 135/64 100 02/15/20 11:28 02/15/20 11:28 02/15/20 11:28 02/15/20 11:28 02/15/20 11:28 Constitutional: Conversant, awake and oriented, frail Respiratory: normal respiratory effort, lungs clear to auscultation Cardiovascular: Rate/Rhythm: + irregularly irregular [place] prosthetic heart valve sounds noted No lower extremity edema Gastrointestinal (Abdomen): normal bowel sounds, soft, nontender, no hepatosplenomegaly Neurologic: PERRL, EOMI, accommodation nl, no face palsy, no dysarthria Results & Data Vital Signs (Past 12 Hours) Vital Signs Temp Pulse Pulse Resp BP BP Pulse Ox 02/15/20 11:28 36.4 C L 64 18 135/64 100 02/15/20 07:58 36.6 C 80 18 134/76 95 02/15/20 07:20 68 02/15/20 02:57 36.7 C 69 17 147/71 H 95 Laboratory Results Coagulation 02/14/20 02/14/20 02/14/20 Range/Units 14:26 14:52 21:35 PT (9.0-12.0) Seconds APTT 36.3 H 37.7 H 125.7 H* (21.0-31.0) Seconds 02/15/20 02/15/20 Range/Units 07:14 07:14 PT 24.8 H (9.0-12.0) Seconds APTT 86.8 H* (21.0-31.0) Seconds CBC 02/15/20 Range/Units 07:14 WBC 10.67 (4.8-10.8) K/uL RBC 3.01 L (4.7-6.1) M/uL Hgb 8.5 L (14.0-18.0) g/dL Hct 25.3 L (42-52) % Plt Count 217 (130-400) K/uL Neut # (Auto) 8.14 H (1.4-6.5) K/uL Lymph # (Auto) 0.56 L (1.2-3.4) K/uL [place] # (Auto) 1.33 H (0.11-0.59) K/uL Eos # (Auto) 0.51 H (0-0.5) K/uL Baso # (Auto) 0.03 (0-0.2) K/uL Comprehensive Metabolic Panel 02/15/20 Range/Units 07:14 Sodium 128 L (136-145) mmol/L Potassium 4.3 (3.5-5.1) mmol/L Chloride 95 L (98-107) mmol/L Carbon Dioxide 25 (21-32) mmol/L BUN 10 (7-18) mg/dl Creatinine 0.45 L (0.6-1.4) mg/dl Glucose 97 (70-99) mg/dl Calcium 8.0 L (8.5-10.1) mg/dl Intake and Output 02/14/20 02/15/20 02/15/20 22:59 06:59 14:59 Intake Total 624.30 / 1866.45 365.2 / 1866.45 178.250 / 178.250 Output Total 751 / 1901 850 / 1901 Balance -126.70 / -34.55 -484.8 / -34.55 178.250 / 178.250 Intake: IV 184.30 / 656.45 115.2 / 656.45 178.250 / 178.250 HEPARIN SODIUM/DEXTROSE 25,000 184.30 / 656.45 115.2 / 656.45 178.250 / 178.250 units In 500 ml @ 1,000 UNITS/ HR 20 mls/hr IV .Q24H [facility] Rx#: [id number] Oral 440 / 1210 250 / 1210 Output: Urine 750 / 1900 850 / 1900 # Bowel Movements (1) Intertrochanteric fracture of left femur Encounter type: initial encounter Fracture type: closed Fracture alignment: displaced Qualified Code(s): S72.142A - Displaced intertrochanteric fracture of left femur, initial encounter for closed fracture
--- NOTE | 2020-02-16 07:54 | Discharge Summary ---
Date of Service February 16, 2020 Admission HPI Per Admitting Provider Patient is an 84-year-old male with history of CAD S/P CABG X 5, H/O rheumatic aortic valve disease S/P mechanical aortic valve on chronic Coumadin therapy, atrial fibrillation, ischemic cardiomyopathy, hypertension, hyperlipidemia, chronic intraventricular conduction delay, ectasia of the ascending aorta and other medical problems presents with history of left hip pain after sustaining a mechanical fall while exercising today. He states falling on his left side landing on his left hip and also admits to have bumped his head. Left hip pain is 3/10, worsens with movement, associated with numbness and tingling in his left leg. CT head showed no acute intracranial abnormality. Hip x-ray showed slightly displaced intertrochanteric fracture of the proximal left femur. Denies any history of chest pain, SOB, palpitations, orthopnea, dizziness, diaphoresis, cough, wheezing, hemoptysis, fever, chills, LOC, headache, change in vision, bowel or bladder incontinence, nausea, vomiting, abdominal pain, blood in st ools, diarrhea, dysuria, hematuria, recent change in medications. Admission Exam Per Admitting Provider Physical Exam: Physical Exam: Vitals signs as noted above General Appearance:Moderately built and nourished, no apparent distress Head: normocephalic, Atraumatic Eyes: normal inspection, EOMI Neck: supple, Trachea midline Respiratory/Chest: Normal breath sounds, CTA, No accessory muscle use Cardiovascular: Aortic click, irregularly irregular, no audible murmur Abdomen/GI:Soft, Non tender, Bowel sounds present Extremities/Musculoskelatal:normal inspection, no edema, left hip tender, externally rotated, shortened. Neurologic/Psych:AAOX3, grossly no focal neurological deficits Skin: normal color, warm Principal Diagnosis Left intertrochanteric fracture. Rheumatic aortic valve disease status post mechanical aortic valve, atrial fibrillation on Coumadin, hypertension Discharge Exam Constitutional well developed, well nourished and + obese; no acute distress and not ill appearing Eyes PERRL, conjunctivae normal, anicteric sclerae ENMT external ear and nose normal, oropharynx normal Neck trachea midline, no thyromegaly Respiratory normal respiratory effort, lungs clear to auscultation normal respiratory effort; no respiratory distress Auscultation: lungs clear to auscultation bilaterally Cardiovascular Rate/Rhythm: regular rate and regular rhythm Heart Sounds: + murmur Gastrointestinal (Abdomen) Inspection/Auscultation: abdomen normal to inspection and normal bowel sounds; abdomen not distended Percussion/Palpation: abdomen soft; abdomen nontender Musculoskeletal Head/Neck/Chest: + head abnormal to inspection and normocephalic Neurologic moves all extremities; no focal motor deficits Lymphatic no cervical or axillary lymphadenopathy Discharge Data Allergies Allergy/AdvReac Type Severity Reaction Status Date / Time Sulfa (Sulfonamide AdvReac Intermediate Unknown Unverified 02/08/20 15:14 Antibiotics) Consultations 02/08/20 16:34 ED Decision to Admit Stat 02/08/20 18:03 Consult Orthopedic Surgery Stat 02/08/20 19:30 Consult Cardiology Routine Consult Case Management - Discharge Planning Routine Consult Orthopedic Surgery Routine 02/10/20 19:28 Consult Case Management - Discharge Planning Routine Procedures Performed Operation Date: 02/10/20 07:00 Actual Procedures p Left Hip Troch Nail(Left) - Freeman Rodriguez Ordered Studies 02/08/20 15:05 CT cervical spine wo con Stat CT head/brain wo con Stat 02/10/20 07:00 FL fluoroscopy <1hr Routine FL hip LT 2-3V Routine Hospital Course (1) Subcapital fracture of left hip: Left Hip fracture S/P mechanical Fall CT head:No acute intracranial abnormality. Atrophy and considerable age-related chronic small vessel change. Neck CT:There is no evidence of fracture or subluxation involving the cervical spine. Osteopenia and spondylotic change as above. Hip X ray:Slightly displaced intertrochanteric fracture of the proximal left femur. Appreciate Ortho input and recommendation Appreciate cardiology input and medical clearance with complex cardiac history Status post left hip trochanteric nail placement on 02/10/2020 Patient remains stable and management will be as per orthopedic surgeon Will be transferred to rehab today Hemoglobin dropped to 8.0 Likely secondary to acute blood loss Given the history of cardiac disease and the patient being symptomatic will transfuse with 2 units of PRBC Hemoglobin went up to 8.8 from 8 following 2 units of blood transfusion No evidence of bleeding Check CBC tomorrow-remains at 8.5 DVT Px on IV heparin Orthopedics consulted - plan for surgical intervention tomorrow (02/10/20) NPO after midnight bowel regimen to prevent constipation PT/OT as able May need rehab Monitor for for post op anemia Preop COVID 19 was negative INR is 1.5 today 02/12/2020 We will monitor INR-1.7 today We will continue heparin and Coumadin ~INR is therapeutic at 2.5 INR is 2.0 today and will continue heparin and Coumadin INR is 2.5 today, will discontinue heparin and discharge the patient for rehab Hypertensive urgency Noted to have high blood pressure at presentation with history of hypertension Likely situational secondary to pain Continue lisinopril, metoprolol PO Hydralazine PRN Blood pressure seems to be controlled Hyponatremia Sodium 134 Gentle IV fluids Monitor sodium levels Sodium levels remain around 133 as of 02/10/2020 Sodium level remains around 131And again 131 today Sodium is low at 128 We will continue with fluid restriction CAD S/P CABG X 5 H/O Ischemic cardiomyopathy 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 Continue aspirin, statin, metoprolol, lisinopril Appreciate cardiology input and recommendation No cardiac symptoms H/O rheumatic aortic valve disease S/P mechanical aortic valve on chronic Coumadin therapy INR:2.5 Hold Coumadin for now Received vitamin K intravenously prior to surgery On IV heparin and started with oral Coumadin INR is 2.5 today Discharge to rehab today Atrial fibrillation Rate controlled Continue metoprolol Denies any acute symptoms Hyperlipidemia On Statin DVT Px: on IV heparin Code Status Full Code Total Time Total Time Spent Total Time Spent (In Minutes): 35 minutes Total Time Includes: Examination of the Patient, Discharge Planning, Medication Reconciliation and Communication With Other Providers Discharge Plan Discharge Items Patient Disposition: Transfer Intermediate Fac Reason For Visit: LEFT HIP PAIN Discharge Diagnosis: Left intertrochanteric fracture. Rheumatic aortic valve disease status post mechanical aortic valve, atrial fibrillation on Coumadin, hypertension Condition on Discharge: Fair Activity: As commented below Activity Comment: Continue work with PT/OT for mobility. You are weightbearing as tolerated after surgery. Bathing: Keep incision dry Bathing Comment: Keep incisions covered and clean and dry until there is no drainage on the dressing for greater than 24 hours. After this, wound may get wet in the shower but avoid submersion for 3 weeks after surgery. Please contact the orthopedic clinic at the number below if there is any drainage from these incisions beyond 7 days postoperatively. Weightbearing Comment: Weightbearing as tolerated. Non-emergency contact: Surgeon Call non-emergency contact if: your pain is not controlled, your temperature is above 101.5, your wound has increased redness, your wound has increased drainage and your wound pain has increased Follow-up/Referrals: Freeman Rodriguez [Surgeon] - (14-21 days after surgery for staple removal and interval hip x-rays.) Jamison Reynolds DO [Primary Care Provider] - 02/22/20 9:40 am (02/22/2020 9:40 AM Provider Jamison Reynolds DO [facility] ) Diet: Heart Healthy Addtl Attending Provider Instructions: Please take precaution to avoid falls Follow-up with coagulation clinic to check INR and keep it in between 2.5-3.5 and adjust Coumadin doses Pending Studies at Discharge: Yes Studies:: Repeat hip x-rays at 2 to 3 weeks postoperatively. Stand-Alone Forms: [employer] Skilled Items Patient informed of condition?: Yes DNR: No Discharge Level of Care: Skilled Communicable Disease: No Discharge Prognosis: Stable Lines: None Urinary Catheter: No Medications and DC Order Prescriptions: New lidocaine 5 % Adhesive Patch,Medicated 1 patch transdermal DAILY@2100 30 Days Qty: 30 RF: 0 Continued warfarin 5 mg Tablet 5 mg PO PM Qty: 0 RF: 0 rosuvastatin 20 mg Tablet 20 mg PO Q OTHER DAY Qty: 0 RF: 0 metoprolol tartrate 25 mg Tablet 25 mg PO QAM Qty: 0 RF: 0 ascorbic acid (vitamin C) [Vitamin C] 500 mg Tablet 500 mg PO QAM Qty: 0 RF: 0 lisinopril 10 mg Tablet 10 mg PO QAM Qty: 0 RF: 0 coQ10 (ubiquinol) 200 mg Capsule 200 mg PO QAM Qty: 0 RF: 0 vitamin B complex Tablet 1 tab PO QAM RF: 0 loratadine 10 mg Tablet 10 mg PO QAM RF: 0 cholecalciferol (vitamin D3) [Vitamin D3] 25 mcg (1,000 unit) Tablet 25 mcg PO QAM RF: 0 omega 4-rig-own-fish oil [Fish Oil] 1,200 (144-216) mg Capsule 1 cap PO QAM RF: 0 aspirin 81 mg Tablet,Delayed Release (Dr/Ec) 81 mg PO QAM Qty: 0 RF: 0 Discharge Orders: Discharge Order (Routine); Ordered 02/15/20 Ordered By: Farzad Carrington Admission Data Admit Date/Time: 02/08/20 18:22 Attending Provider: Farzda Carrington Admit Provider: Akash Lobato Primary Care Provider: Jamison Reynolds Other Providers: Ifeanyi Crowder ; Akash Lobato ; Freeman Rodriguez ; Luke Pruitt ; Luke Ashley Other Interventions: Discharge Summary Assessment (RN) Last Done: 02/15/20 14:31 DC Date/Time DO NOT enter until pt leaves facility: 02/15/20 15:24
== END 2020-02-15 15:24 | DRG 481 ==
LOC: ED 14:58 → 2S 18:22 → SUATTDRO 18:22 → 2S 19:08

== ENCOUNTER 2020-07-02 20:59 | Inpatient (IN) ==
[2020-07-02] MEDS ORDERED: ONDANSETRON INJ 2 MG/ML 2 ML VIAL IV STA (21:06)
[2020-07-02] MEDS ORDERED: SODIUM CHLORIDE 0.9% 500 ML IV SCH (21:15)
--- NOTE | 2020-07-02 21:21 | Emergency Department Note ---
Impression & Plan Closed intertrochanteric fracture of right hip, Fall, CHI (closed head injury), Contusion of occipital region of scalp ED Provider Note NAME: GABY HARRISON AGE: 85 SEX: M : 1935 ARRIVES VIA: Ambulance INFORMANT: Patient, ED PROVIDER(S): Kishan Bedoya DO CHIEF COMPLAINT: Right hip pain HPI: The patient is an 85-year-old male who presented to the emergency department from his [facility] after a fall. The patient lives at the [facility]. He fell from a standing position. He struck his right lower extremity but also struck the back of his head. There was no definite loss of consciousness. The patient did have an abrasion to the back of his head. The patient denies having any neck pain or chest pain. He states that he fell from a standing position onto his right leg. He had a similar episode last spring where he fractured his left hip. The patient states his pain was moderate to severe. It is worsened with any movement. The patient is unable to bear weight because of the right lower extremity pain. He denies having any back pain. He has no left lower extremity pain at this time. The patient does take blood thinners for atrial fibrillation and metallic heart valve. The magda tellez states that he has been compliant with his outpatient medication regimen. ROS: See above HPI for pertinent positives & negatives. A total of 10 systems r eviewed and were otherwise negative. PAST MEDICAL HISTORY: See Below PAST SURGICAL HISTORY: See Below FAMILY HISTORY: See Below SOCIAL HISTORY: See Below HOME MEDICATIONS: See Below ALLERGIES: See Below VITALS: See Below PHYSICAL EXAMINATION: GENERAL: The patient is awake and alert. The patient is very anxious appearing and appears to be in severe pain. EYES: The conjunctivae are clear. The pupils are round and reactive. EARS, NOSE, MOUTH AND THROAT: The nose is without any evidence of any deformity. NECK: The neck is nontender and supple. RESPIRATORY: Normal respiratory effort is noted there is no evidence of wheezing rhonchi or rales CARDIOVASCULAR: Regular rate and rhythm was noted to auscultation. Metallic click was noted to auscultation. GASTROINTESTINAL: The abdomen is soft. Abdomen is nontender. PELVIS: The Pelvis is stable. No tenderness to palpation is noted. BACK: No midline tenderness or or step-off noted range of motion in flexion extension as well as rotation no signs of muscle spasm noted MUSCULOSKELETAL/EXTREMITIES: The right lower extremity is externally rotated and flexed at the knee. The patient resists any range of motion testing of the right hip. He has no tenderness over the right knee or the right lower leg. The right leg appears to be shortened but it is difficult to tell given the way the patient is holding his leg. SKIN: There is an abrasion to the occipital scalp. No active bleeding was noted. A small hematoma was noted on the occipital scalp. Trace pedal edema was noted bilaterally. NEUROLOGIC: Patient is awake alert and oriented x3. MEDICAL DECISION MAKING: The patient is an 85-year-old male who presented to the emergency department after a fall from a standing position. The patient was found to have an intertrochanteric right hip fracture noted on x-ray. He was treated with IV fluids and IV pain medication in the emergency department. He was reevaluated multiple times. On subsequent reevaluation he still has very significant pain. I discussed the patient's laboratory and radiographic studies with him. I also discussed his case with the on-call [facility]. They have agreed to evaluate the patient in the emergency department for further management and disposition. Triage Nursing notes reviewed. Prior medical records reviewed Vital Signs: reviewed and remarkable for elevated blood pressure. Differential diagnosis: Fracture, dislocation, contusion, intra-abdominal, pneumothorax, intrathoracic, intracranial, neurologic, compartment syndrome, rhabdomyolysis, as well as other pathologies. ER treatment provided: See below Diagnostics interpreted by me: ECG: EKG was obtained in the emergency department. My interpretation is atrial fibrillation at 55 bpm. There was no ectopy. Left bundle branch block pattern was noted. This was compared to a tracing from February 092019. No significant changes were noted. Cardiac Monitoring: An order was placed for continuous cardiac monitoring. The monitor shows a rate of 68 bpm with atrial fibrillation rhythm. Laboratory studies: As stated above and show below. Imaging studies: See below Consultation(s): [id number]: I discussed this case with Dr. Hernandez who is on-call for the [facility] group. He is agreed to evaluate the patient in the emergency department for further management and disposition. Past Med/Surg History Medical History (Updated 07/02/20 @ 22:07 by Kishan Bedoya DO) Atrial fibrillation CAD (coronary artery disease) Cranial nerve palsy CVA (cerebral vascular accident) Patient denies HTN (hypertension) Intertrochanteric fracture of left femur Surgical History Aortic valve replaced S/P CABG x 5 Family History Unknown Family history non-contributory Social History Smoking Status: Former smoker Tobacco Type: Cigarettes Second Hand Exposure: No; Hx Alcohol Use: Yes Alcohol type: beer and wine Hx Substance Use: No Preferred Language: Polish Communication Ability: Effective School Secretary Required: No Beliefs That Will Affect Care: None Current Living Situation: Alone Current Living Situation Comment: Pt lives at the [facility]- Independent Living Feels Safe at Home: Yes Assistive Devices: None Allergies Allergies Allergy/AdvReac Type Severity Reaction Status Date / Time Sulfa (Sulfonamide AdvReac Intermediate Unknown Unverified 03/01/20 13:13 Antibiotics) Home Meds Home Medications Medication Instructions Recorded Confirmed rosuvastatin 20 mg PO Q2D #0 tab 12/06/14 07/02/20 warfarin See Rx Instructions .ROUTE 12/06/14 07/02/20 .COMPLEX #0 tab ascorbic acid (vitamin C) [Vitamin 500 mg PO QAM #0 03/28/17 07/02/20 C] coQ10 (ubiquinol) 200 mg PO QAM #0 03/28/17 07/02/20 lisinopril 10 mg PO QAM #0 tab 03/28/17 07/02/20 metoprolol tartrate 25 mg PO QAM #0 tab 03/28/17 07/02/20 cholecalciferol (vitamin D3) 1,000 unit PO QAM 02/08/20 07/02/20 [Vitamin D3] loratadine 10 mg PO QAM 02/08/20 07/02/20 omega 4-dpf-mzz-fish oil [Fish Oil] 1 cap PO QAM 02/08/20 07/02/20 vitamin B complex 1 tab PO QAM 02/08/20 07/02/20 gabapentin 100 mg PO TID 07/02/20 07/02/20 omeprazole 20 mg PO DAILY 11/14/20 11/14/20 polyethylene glycol 3350 17 g PO DAILY PRN 07/02/20 07/02/20 sertraline See Rx Instructions .ROUTE .COMPLEX 07/02/20 07/02/20 Previous Rx's Medication Instructions Recorded aspirin 81 mg PO QAM #0 tab 02/15/20 Results & Data (ED) Vital Signs Vital Signs - 24 hr 07/02/20 21:09 07/02/20 21:49 07/02/20 22:00 Temperature 36.8 C Temperature Source Oral Pulse Rate 68 69 Pulse Rate [Apical] 70 Pulse Rate from SpO2 Sensor 65 Pulse Rhythm [Apical] Irregular Respiratory Rate 18 24 19 Respiratory Effort / Characteristics Non-Labored Spontaneous Respiratory Depth Normal Respiratory Pattern Regular Blood Pressure 155/97 H 141/69 H Blood Pressure [Left Arm] 152/83 H Blood Pressure Mean 116 107 Blood Pressure Mean [Left Arm] 106 Pulse Oximetry 99 97 96 Oxygen Delivery Method Room Air Room Air Room Air Sepsis Recent Fever Within 48 Hours No Sepsis New/Unexplained Change in Mental Status No Sepsis Action Taken by Nursing No Action Required Home Medications Current Medication List: was personally reviewed by me Laboratory Data Attestation: I reviewed the patient's lab results. Result diagrams: 07/02/20 21:31 07/02/20 21:31 Lab Results 07/02/20 07/02/20 07/02/20 Range/Units 21:31 21:31 21:31 WBC 11.63 H (4.8-10.8) K/uL RBC 4.51 L (4.7-6.1) M/uL Hgb 12.7 L (14.0-18.0) g/dL Hct 38.8 L (42-52) % MCV 86.0 (80-100) fL MCH 28.2 (25-34) pg MCHC 32.7 (32-36) g/dL RDW Std Deviation 52.4 H (36.4-46.3) fL RDW Coeff of Miller 16.5 H (11.5-14.5) % Plt Count 215 (130-400) K/uL MPV 10.2 (7.4-10.4) fL Immature Gran % (Auto) 0.3 % Neut % (Auto) 81.5 % Lymph % (Auto) 11.1 % Hartley % (Auto) 4.5 % Eos % (Auto) 2.3 % Baso % (Auto) 0.3 % Neut # (Auto) 9.48 H (1.4-6.5) K/uL Lymph # (Auto) 1.29 (1.2-3.4) K/uL Hartley # (Auto) 0.52 (0.11-0.59) K/uL Eos # (Auto) 0.27 (0-0.5) K/uL Baso # (Auto) 0.03 (0-0.2) K/uL Immature Gran # (Auto) 0.04 H (0.00-0.02) K/uL PT 26.2 H (9.0-12.0) Seconds INR 2.6 H (0.9-1.1) APTT 30.5 (21.0-31.0) Seconds PTT Ratio 1.1 Sodium 136 (136-145) mmol/L Potassium 4.2 (3.5-5.1) mmol/L Chloride 104 (98-107) mmol/L Carbon Dioxide 29 (21-32) mmol/L Anion Gap 3.0 (3-11) BUN 17 (7-18) mg/dl Creatinine 0.83 (0.6-1.4) mg/dl Est Cr Clr Drug Dosing 64.1 ml/min Est GFR ( Amer) 93.6 Est GFR (Non-Af Amer) 80.8 BUN/Creatinine Ratio 20.4 H (10-20) Glucose 135 H (70-99) mg/dl Calcium 9.0 (8.5-10.1) mg/dl Total Bilirubin 0.9 (0.2-1) mg/dl AST 29 (15-37) U/L ALT 26 (12-78) U/L Alkaline Phosphatase 182 H (45-117) U/L Troponin I 0.028 (0-0.045) ng/ml Total Protein 7.0 (6.4-8.2) gm/dl Albumin 3.6 (3.4-5.0) gm/dl Globulin 3.4 (2.5-4.0) gm/dl Albumin/Globulin Ratio 1.1 (0.9-2) Lipase 127 (73-393) U/L COVID-19 Eval Order SARS-CoV-2, RNA, NAAT (NEGATIVE) Blood Type Antibody Screen 07/02/20 07/02/2020 Range/Units 21:31 21:49 21:49 WBC (4.8-10.8) K/uL RBC (4.7-6.1) M/uL Hgb (14.0-18.0) g/dL Hct (42-52) % MCV (80-100) fL MCH (25-34) pg MCHC (32-36) g/dL RDW Std Deviation (36.4-46.3) fL RDW Coeff of Miller (11.5-14.5) % Plt Count (130-400) K/uL MPV (7.4-10.4) fL Immature Gran % (Auto) % Neut % (Auto) % Lymph % (Auto) % Hartley % (Auto) % Eos % (Auto) % Baso % (Auto) % Neut # (Auto) (1.4-6.5) K/uL Lymph # (Auto) (1.2-3.4) K/uL Hartley # (Auto) (0.11-0.59) K/uL Eos # (Auto) (0-0.5) K/uL Baso # (Auto) (0-0.2) K/uL Immature Gran # (Auto) (0.00-0.02) K/uL PT (9.0-12.0) Seconds INR (0.9-1.1) APTT (21.0-31.0) Seconds PTT Ratio Sodium (136-145) mmol/L Potassium (3.5-5.1) mmol/L Chloride (98-107) mmol/L Carbon Dioxide (21-32) mmol/L Anion Gap (3-11) BUN (7-18) mg/dl Creatinine (0.6-1.4) mg/dl Est Cr Clr Drug Dosing ml/min Est GFR ( Amer) Est GFR (Non-Af Amer) BUN/Creatinine Ratio (10-20) Glucose (70-99) mg/dl Calcium (8.5-10.1) mg/dl Total Bilirubin (0.2-1) mg/dl AST (15-37) U/L ALT (12-78) U/L Alkaline Phosphatase (45-117) U/L Troponin I (0-0.045) ng/ml Total Protein (6.4-8.2) gm/dl Albumin (3.4-5.0) gm/dl Globulin (2.5-4.0) gm/dl Albumin/Globulin Ratio (0.9-2) Lipase (73-393) U/L COVID-19 Eval Order Covid19 [facility] SARS-CoV-2, RNA, NAAT NEGATIVE (NEGATIVE) Blood Type AB Positive Antibody Screen NEGATIVE Administered Medications Fentanyl Citrate (Fentanyl Citrate 100 Mcg/2 Ml Vial) 50 mcg IV Q15M PRN PRN Reason: Pain Stop: 07/16/20 21:05 Last Admin: 07/02/20 22:44 Dose: 50 mcg Documented by: [id number] Admin: 07/02/20 21:32 Dose: 50 mcg Documented by: [id number] Discontinued Medications Sodium Chloride (Nss) 500 mls @ 999 mls/hr IV .Q31M PATTIE Stop: 07/02/20 21:45 Last Infusion: 07/02/20 22:03 Dose: 0 mls/hr Documented by: [id number] Admin: 07/02/20 21:32 Dose: 999 mls/hr Documented by: [id number] Ondansetron HCl (Ondansetron Inj 2 Mg/Ml 2 Ml Vial) 4 mg IV NOW STA Stop: 07/02/20 21:07 Last Admin: 07/02/20 21:32 Dose: 4 mg Documented by: [id number] Imaging Data Attestation: I personally reviewed and interpreted this imaging study as follows: My Impression: 1 view the chest x-ray was obtained in the emergency department. Postsurgical changes were noted, no free air was noted, there was no definite infiltrate, no acute disease was noted. X-ray of the pelvis with right hip was obtained in the emergency department. My interpretation is displaced intertrochanteric right hip fracture was noted. Previous surgical fixation of the left hip fracture was also noted. There was no definite pelvic fracture. Radiologist's Impression: Patient: GABY HARRISON (Male) : 37 Status: ER Date: 07/02/20 22:38 Room #: History: FALL NECK PAIN EK/EW/KF Slices: 67 Priors: Tech: Cooper Loaiza @ [id number] Exams: CT HEAD Contrast: Accession Numbers: [id number] Preliminary Findings Only See Final Report For Complete Findings CT HEAD: No intracranial hemorrhage. Severe white matter changes and chronic infarcts within the cerebellum. No fracture. Radiologist: Giovani Beebe MD Study ready at 22:43 and initial results transmitted at 22:57 Patient: GABY HARRISON (Male) : 37 Status: ER Date: 07/02/20 22:41 Room #: History: FALL NECK PAIN EK/EW/KF Slices: 777 Priors: Tech: Cooper Loaiza @ [id number] Exams: CT C SPINE Contrast: Accession Numbers: [id number] Preliminary Findings Only See Final Report For Complete Findings CT C SPINE: No fracture or malalignment. Mild to moderate degenerative changes at C4-5 and C5-6. Radiologist: Giovani Beebe MD Study ready at 22:51 and initial results transmitted at 22:58 Blood Pressure Blood Pressure Findings: Elevated blood pressure Blood Pressure Disposition: further management by hospitalist Discharge Plan Visit Data Chief Complaint: Fall Stated Complaint: FALL, R HIP PAIN, LAC. TO BACK OF HEAD ED Provider: Kishan Bedoya Discharge Problem: Closed intertrochanteric fracture of right hip, Fall, CHI (closed head injury), Contusion of occipital region of scalp Patient Disposition: Being Evaluated by Hospitalist Condition: Good Forms Stand Alone Forms: [facility] [employer] Prescriptions Prescriptions: No Action warfarin 5 mg Tablet See Rx Instructions .ROUTE .COMPLEX Qty: 0 RF: 0 rosuvastatin 20 mg Tablet 20 mg PO Q2D Qty: 0 RF: 0 metoprolol tartrate 25 mg Tablet 25 mg PO QAM Qty: 0 RF: 0 ascorbic acid (vitamin C) [Vitamin C] 500 mg Tablet 500 mg PO QAM Qty: 0 RF: 0 lisinopril 10 mg Tablet 10 mg PO QAM Qty: 0 RF: 0 coQ10 (ubiquinol) 200 mg Capsule 200 mg PO QAM Qty: 0 RF: 0 vitamin B complex Tablet 1 tab PO QAM RF: 0 loratadine 10 mg Tablet 10 mg PO QAM RF: 0 cholecalciferol (vitamin D3) [Vitamin D3] 25 mcg (1,000 unit) Tablet 1,000 unit PO QAM RF: 0 omega 7-dpr-yid-fish oil [Fish Oil] 1,200 (144-216) mg Capsule 1 cap PO QAM RF: 0 aspirin 81 mg Tablet,Delayed Release (Dr/Ec) 81 mg PO QAM Qty: 0 RF: 0 omeprazole 20 mg capsule,delayed release(DR/EC) 20 mg PO DAILY RF: 0 gabapentin 100 mg capsule 100 mg PO TID RF: 0 polyethylene glycol 3350 17 gram/dose Powder 17 g PO DAILY PRN (Reason: Constipation) RF: 0 sertraline 50 mg Tablet See Rx Instructions .ROUTE .COMPLEX RF: 0 Referrals Referrals: [facility] Mauro Bhatia [Primary Care Provider] - Discharge Problem: Closed intertrochanteric fracture of right hip Qualifiers: Encounter type: initial encounter Fracture alignment: displaced Qualified Code(s): S72.141A - Displaced intertrochanteric fracture of right femur, initial encounter for closed fracture Fall Qualifiers: Encounter type: initial encounter Qualified Code(s): W19.XXXA - Unspecified fall, initial encounter CHI (closed head injury) Qualifiers: Encounter type: initial encounter Qualified Code(s): S09.90XA - Unspecified injury of head, initial encounter Contusion of occipital region of scalp Qualifiers: Encounter type: initial encounter Qualified Code(s): S00.03XA - Contusion of scalp, initial encounter
[2020-07-02] MEDS: fentaNYL citrate 100 MCG/2 ML VIAL IV PRN ×3 (21:32→23:30)
[2020-07-02 21:44] LABS: Basophils # (auto) 0.03 K/uL (0-0.2); Basophils % (auto) 0.3 %; Eosinophils # (auto) 0.27 K/uL (0-0.5); Eosinophils % (auto) 2.3 %; Hematocrit (blood only) 38.8 % (42-52); Hemoglobin 12.7 g/dL (14.0-18.0); Immature Granulocytes # (auto) 0.04 K/uL (0.00-0.02); Immature Granulocytes % (auto) 0.3 %; Lymphocytes # (auto) 1.29 K/uL (1.2-3.4); Lymphocytes % (auto) 11.1 %; Mean Corpuscular Hemoglobin 28.2 pg (25-34); Mean Corpuscular Hgb Conc 32.7 g/dL (32-36); Mean Platelet Volume 10.2 fL (7.4-10.4); Monocytes # (auto) 0.52 K/uL (0.11-0.59); Monocytes % (auto) 4.5 %; Neutrophils # (auto) 9.48 K/uL (1.4-6.5); Neutrophils % (auto) 81.5 %; Platelet Count 215 K/uL (130-400); RDW Coefficient of Variation 16.5 % (11.5-14.5); RDW Standard Deviation 52.4 fL (36.4-46.3); Red Blood Count 4.51 M/uL (4.7-6.1); White Blood Count 11.63 K/uL (4.8-10.8)
[2020-07-02 21:59] LABS: INR 2.6 (0.9-1.1); Partial Thromboplastin Ratio 1.1; Partial Thromboplastin Time 30.5 Seconds (21.0-31.0); Prothrombin Time 26.2 Seconds (9.0-12.0)
[2020-07-02 22:01] LABS: Albumin Level 3.6 gm/dl (3.4-5.0); BUN Creatinine Ratio 20.4 (10-20); Creatinine Clr Calc Pharmacy 64.1 ml/min; Est GFR (African American) 93.6; Est GFR (Non-African American) 80.8; Potassium 4.2 mmol/L (3.5-5.1)
[2020-07-02 22:05] LABS: Albumin Globulin Ratio 1.1 (0.9-2); Bilirubin,Total 0.9 mg/dl (0.2-1); Globulin 3.4 gm/dl (2.5-4.0); Troponin I 0.028 ng/ml (0-0.045)
[2020-07-03] MEDS ORDERED: ONDANSETRON INJ 2 MG/ML 2 ML VIAL IV PRN ×2 (00:57→13:18)
[2020-07-03] MEDS ORDERED: PHYTONADIONE 5 MG in SODIUM CHLORIDE 0.9% 50 ML IV ONE ×2 (00:57→08:15)
[2020-07-03] MEDS ORDERED: hydrALAZINE HCL 20 MG/ML VIAL IV PRN (00:57)
[2020-07-03] MEDS ORDERED: NITROGLYCERIN SL 0.4 MG/TAB TAB SL PRN (00:57)
[2020-07-03] MEDS ORDERED: HYDROmorphone INJ 0.5 MG/0.5 ML SYR ONE (00:59)
[2020-07-03] MEDS: SODIUM CHLORIDE 0.9% 1000ML 1,000 ML IV SCH ×2 (01:14→16:36)
--- NOTE | 2020-07-03 01:54 | History and Physical Report ---
DATE OF ADMISSION: 07/03/2020 CHIEF COMPLAINT: Status post fall and right hip fracture. HISTORY OF PRESENT ILLNESS: An 85-year-old male with past medical history significant for hyperlipidemia, chronic ischemic heart disease, history of aortic aneurysm, hypertension, permanent atrial fibrillation, history of calculus of gallbladder, history of generalized anxiety disorder, history of rheumatic aortic valve disease, status post mechanical aortic valve, on chronic Coumadin therapy, history of chronic intraventricular conduction delay who lives in personal alf and lives alone, ambulates with a walker, comes with mechanical fall and right hip fracture. The patient has a similar fall in January and at that time had a left hip fracture and status post left hip trochanteric nail placement. The patient says he also hit his back of head, but no loss of consciousness, could not get up, has pain on the right hip region. He denies any fever, chills, no cough, no chest pain, no shortness of breath, no nausea, no vomiting, no abdominal pain, no headache, no blurred vision, no earache, no runny nose, no sore throat. Appetite is okay. Does not sleep well. Normal bowel and bladder movements. Son in the room to help with the history Currently, patient is hemodynamically stable. ALLERGIES: MUPIROCIN. PAST MEDICAL HISTORY: As mentioned above. PAST SURGICAL HISTORY: CABG, carpal tunnel surgery, left side, colonoscopy, EGD, varicose vein surgery, cataracts surgery, repair of inguinal hernia. MEDICATIONS: The patient is on ascorbic acid 500 mg p.o. daily, aspirin 81 mg p.o. daily, vitamin D 2000 units p.o. daily, Coenzyme Q10 200 mg p.o. a.m., gabapentin 100 mg p.o. t.i.d., lisinopril 10 mg p.o. a.m., loratadine 10 mg p.o. a.m., metoprolol 25 mg p.o. a.m., omega fish oil 1 capsule p.o. a.m., omeprazole 20 mg p.o. daily, MiraLax 17 g p.o. daily p.r.n., rosuvastatin 20 mg p.o. q. 2 days, sertraline as directed, vitamin B complex 1 tablet a.m., Coumadin as directed. FAMILY HISTORY: Significant for brother has diabetes. Father had OK, maternal grandmother had diabetes. SOCIAL HISTORY: , currently lives in a personal alf. Former smoker, quit in 1972. Quit after 20 years of smoking. Alcohol rarely. No drug use. REVIEW OF SYMPTOMS: As per HPI. Rest of review of symptoms negative. PHYSICAL EXAMINATION: GENERAL: The patient is old and frail, not in acute distress. VITAL SIGNS: Temperature 36.8, pulse 68, respiratory rate 20, blood pressure 138/83, oxygen 98% on room air. HEENT: No pallor, no icterus. Pupils equal, round, reactive to light. NECK: No JVD, no neck masses, no carotid bruits. CARDIOVASCULAR: S1, S2 heard, regular rate and rhythm, no murmur, no gallop. RESPIRATORY SYSTEM: Normal AP diameter. No accessory muscle use. No wheezing, no crackles. ABDOMEN: Soft, bowel sounds present, nontender. No distention. CENTRAL NERVOUS SYSTEM: Cranial nerves II through XII grossly intact, nonfocal. EXTREMITIES: Right lower extremity is shortened and externally rotated. No erythema seen. LABORATORY DATA: WBC 11.6, hemoglobin 12.7, hematocrit 38.8, platelets 215. PT 26.2, INR 2.6 and APTT 30.5. Sodium 136, potassium 4.2, chloride 104, bicarbonate 29, BUN 17, creatinine 0.8, serum glucose 135, calcium 9. Total bilirubin 0.9, AST 29, ALT 26, alkaline phosphatase 182. Troponin I 0.028, lipase 127. SARS-CoV-[address] of the head and cervical spine CT, preliminary report unremarkable. Chest x-ray, no acute findings. Hip and pelvic x-ray, right hip fracture. EKG: Atrial fibrillation with slow ventricular response at rate of 55. Nonspecific intraventricular conduction block. ASSESSMENT AND PLAN: This is 85-year-old male who presents with mechanical fall and right hip fracture 1. Status post mechanical fall, right hip fracture. Pain control. Keep him n.p.o., gentle fluids. Because of multiple medical, cardiac problems, we will consult cardiology for preoperative clearance. Consult orthopedics. Closely monitor on med/tele. 2. History of coronary artery disease status post coronary artery bypass graft, history of ischemic cardiomyopathy, history of chronic intraventricular conduction delay, history of ectasia of ascending aorta on aspirin, statin and metoprolol. We will hold lisinopril until surgery is done. 3. History of rheumatic aortic valve disease, status post mechanical aortic valve, on chronic Coumadin. INR is 2.6, we will give vitamin K. IV heparin bridge once INR below 2.5 ( To hold during surgery) 4. Atrial fibrillation, rate controlled. Continue metoprolol. 5. Hyperlipidemia. On statin. 6. Hypertension. Continue home medication of metoprolol. Holding lisinopril for now,until surgery is done we will place him on IV hydralazine p.r.n. 7. Generalized anxiety. Continue Zoloft. 8. Gastroesophageal reflux disease. Continue omeprazole. 9. Deep venous thrombosis prophylaxis, currently INR is 2.6. Could not place on SCDs because of the hip fracture. Post-surgery started on IV heparin bridge and Coumadin. 10. Code status level 1 full code. PT and OT prior to discharge. Social service to help with discharge planning. JUDY
[2020-07-03] MEDS: HYDROmorphone INJ 0.5 MG/0.5 ML SYR IV PRN ×2 (05:44→11:53)
[2020-07-03 06:16] LABS: INR 2.1 (0.9-1.1); Prothrombin Time 21.2 Seconds (9.0-12.0)
--- NOTE | 2020-07-03 07:02 | Electrocardiogram Report ---
Test Reason : Blood Pressure : / mmHG Vent. Rate : 055 BPM Atrial Rate : 057 BPM P-R Int : 000 ms QRS Dur : 148 ms QT Int : 420 ms P-R-T Axes : 000 -74 098 degrees QTc Int : 401 ms Atrial fibrillation with slow ventricular response Left axis deviation Left bundle branch block Abnormal ECG When compared with ECG of 10-FEB-2020 06:52, Vent. rate has decreased BY 31 BPM Confirmed by Neville Perdomo ([id number]) on 07/03/2020 7:02:37 AM Referred By: [facility] Confirmed By:Neville Perdomo
--- NOTE | 2020-07-03 07:09 | Hospitalist Progress Note ---
Date of Service July 03, 2020 Assessment & Plan (1) Closed intertrochanteric fracture of right hip: (2) Fall: (3) Right knee DJD: (4) Atrial fibrillation: (5) CAD (coronary artery disease): (6) Aortic valve replaced: (7) Mitral valve replaced: (8) S/P CABG x 5: ASSESSMENT AND PLAN: This is 85-year-old male who presents with mechanical fall and right hip fracture 1. Status post mechanical fall, right hip fracture. Pain control. Keep him n.p.o., gentle fluids. Because of multiple medical, cardiac problems, we will consult cardiology for preoperative clearance. Consult orthopedics. Closely monitor on med/tele. 2. History of coronary artery disease status post coronary artery bypass graft, history of ischemic cardiomyopathy, history of chronic intraventricular conduction delay, history of ectasia of ascending aorta on aspirin, statin and metoprolol. We will hold lisinopril until surgery is done. 3. History of rheumatic aortic valve disease, status post mechanical aortic valve, on chronic Coumadin. INR is 2.6, we will give vitamin K. IV heparin bridge once INR below 2.5 ( To hold during surgery) 4. Atrial fibrillation, rate controlled. Continue metoprolol. 5. Hyperlipidemia. On statin. 6. Hypertension. Continue home medication of metoprolol. Holding lisinopril for now,until surgery is done we will place him on IV hydralazine p.r.n. 7. Generalized anxiety. Continue Zoloft. 8. Gastroesophageal reflux disease. Continue omeprazole. 9. Deep venous thrombosis prophylaxis, currently INR is 2.6. Could not place on SCDs because of the hip fracture. Post-surgery started on IV heparin bridge and Coumadin. 10. Code status level 1 full code. PT and OT prior to discharge. Social service to help with discharge planning. Labs Checked Cards to see for Pre op eval ROS-Sore RLE, No Headache, No Visual Changes, No Nausea, No Vomiting, No Fever, No Chills, No Neck Pain or Stiffness, No Chest Pain, No Palpitations, No SOB, No LEMOS, No Cough, No Sputum, No Wheezing, No Abdominal Pain, No Diarrhea, No Hematemesis, No Hemoptysis, No Unexpected Weight Loss, No Flank pain, No Melena, No Hematochezia, No Frequency, No Urgency, No Burning, No Hematuria, No Rashes, No Diaphoresis. Appetite is Normal Physical Exam Gen-AAO x 3, NAD, Afebrile Head-NCAT, EOMI, PERRLA, Anicteric Sclera, No Posterior Pharyngeal Erythema Neck-Supple, No JVD, No Thyromegaly, No Masses, No LAD, No Bruits Lungs-Clear to Auscultation Bilaterally, No Rales, No Rhonchi, No Wheezing, No Crepitus Chest-No S4, +S1, +S2, No S3, No Murmurs, No Rubs, No Gallops, No Ectopy Abdomen-Soft, Bowel Sounds Present, Non Tender, Non Distended, No Hepatomegaly, No Splenomegaly, No Palpable Masses, No Rebound, No Rigidity, No Guarding Musculoskeletal-, FROM x 3, No CVAT Extremities-No Cyanosis, No Clubbing, No Edema Nuero-Cranial Nerves II-XII grossly intact, Motor WNL, DTRs WNL, Strength WNL, Non Focal Psych-Normal Mood Admission and Anticipated Discharge Date Admission Date: July 03, 2020 Results & Data Results & Data ([facility]) Vital Signs (Past 12 Hours) Vital Signs Temp Pulse Pulse Resp BP BP Pulse Ox 07/03/20 04:17 90 07/03/20 04:00 36.4 C L 73 20 138/69 97 07/03/20 00:30 65 17 160/84 H 99 07/03/20 00:22 36.6 C 58 L 16 152/79 H 100 07/03/20 00:00 68 20 138/83 98 07/02/20 23:31 66 19 147/71 H 91 07/02/20 23:30 74 23 94 07/02/20 23:00 78 20 148/71 H 98 07/02/20 22:44 66 14 97 07/02/20 22:00 69 19 141/69 H 96 07/02/20 21:49 70 24 152/83 H 97 07/02/20 21:09 36.8 C 68 18 155/97 H 99 (1) Closed intertrochanteric fracture of right hip Encounter type: initial encounter Fracture alignment: displaced Qualified Code(s): S72.141A - Displaced intertrochanteric fracture of right femur, initial encounter for closed fracture (2) Fall Encounter type: initial encounter Qualified Code(s): W19.XXXA - Unspecified fall, initial encounter
--- NOTE | 2020-07-03 08:05 | CT Scan Report ---
HEAD CT NONCONTRAST CT DOSE: HISTORY: fall TECHNIQUE: Multiaxial CT images of the head were performed without the use of intravenous contrast. A utomated exposure control was utilized for this study. A dose lowering technique was utilized adheri ng to the principles of ALARA. Comparison: Head CT 02/08/2020. Findings: The paranasal sinuses and mastoid air cells are clear. The calvarium and skull base are int act. There is no mass, hematoma, midline shift, acute infarct. White matter hypodensity is nonspecifi c but suggestive of microvascular ischemic change. The ventricles and sulci demonstrate moderate age- related involutional changes. Mild posterior scalp swelling. 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 Impression: No acute intracranial abnormality. Atrophy and microvascular ischemic changes. Mild posterior scalp s welling. ACT 112: Negative or not required by law. Electronically signed by: Yuri Martin M.D. 07/03/2020 8:03 AM
--- NOTE | 2020-07-03 08:10 | CT Scan Report ---
CT cervical spine wo con CT DOSE: 999.87 mGy.cm CLINICAL HISTORY: 85 years-old Male with fall. Acute neck pain status post fall COMPARISON: Head CT of same day, CT cervical spine 02/08/2020 TECHNIQUE: Multiple axial CT images of the cervical spine were obtained without contrast. A dose low ering technique was utilized adhering to the principles of ALARA. FINDINGS: No prevertebral edema. Calcific plaque of the left greater than right carotid bulbs. Lung apices are clear without pneumothorax. Multilevel discogenic degeneration with moderate disc space narrowing at C4-C5 and moderate to severe disc space narrowing at C5-C6. Moderate spondylitic spurring with modera te to severe facet arthrosis. Grade 1 anterolisthesis C7 on T1 is likely secondary to chronic facet a rthrosis. There is no acute fracture or subluxation. Evaluation of the central canal and neuroforamin a is better assessed by MRI. Note is made of multilevel foraminal narrowing. IMPRESSION: No acute fracture or subluxation. ACT 112: Negative or not required by law. The above report was generated using voice recognition software. It may contain grammatical, syntax o r spelling errors. Electronically signed by: Miguelangel Patel M.D. 07/03/2020 8:09 AM
[2020-07-03] MEDS: LORATADINE 10 MG TAB PO SCH (08:17)
[2020-07-03] MEDS: METOPROLOL TARTRATE 25 MG TAB PO SCH (08:18)
[2020-07-03] MEDS: GABAPENTIN 100 MG CAP PO SCH ×3 (08:18→21:20)
[2020-07-03] MEDS: PANTOprazole 40 MG TAB PO SCH (08:18)
[2020-07-03] MEDS: CHOLECALCIFEROL 1,000 UNITS 25 MCG TAB PO SCH (08:18)
[2020-07-03] MEDS: VITAMIN B COMPLEX TAB PO SCH (08:18)
[2020-07-03] MEDS: ASCORBIC ACID 500 MG TAB PO SCH (08:19)
[2020-07-03] MEDS: ROSUVASTATIN CALCIUM 20 MG TAB PO SCH (08:19)
[2020-07-03] MEDS: SERTRALINE HCL 50 MG TABLET PO SCH (08:20)
[2020-07-03] MEDS: ASPIRIN 81 MG ECTAB PO SCH (08:20)
--- NOTE | 2020-07-03 08:24 | Cardiology Consultation ---
Date of Consultation July 03, 2020 Assessment & Plan (1) Preop cardiovascular exam: (2) Aortic valve replaced: (3) Chronic atrial fibrillation: (4) S/P CABG x 5: (5) Closed intertrochanteric fracture of right hip: No cardiovascular contraindication to orthopedic surgery. Patient is considered moderate perioperative cardiovascular risk. Agree with 5 mg of vitamin K this a.m. in anticipation of surgery. Recommend IV heparin infusion for bridging therapy postoperatively when bleeding risk is deemed acceptable by the operating surgeon. Continue beta-quinn and aspirin uninterrupted perioperatively. No further cardiac testing or intervention would lower patient's perioperative risk at this time. Thank you for allow me to participate in the care of your patient. I will continue to follow patient during hospitalization. History of Present Illness Reason for Consultation: Preoperative cardiovascular evaluation, hip fracture Requesting Physician: Dr. Dennis Attending Physician: Efrain Landers DO History of Present Illness 85-year-old patient presents to the emergency department with a mechanical fall. He lives in a personal fci alone. Typically ambulates with use of a walker. X-ray confirms right hip fracture. He had a similar fall in January 2020 with a resultant left hip fracture and underwent orthopedic surgery without complication. History of coronary artery disease status post coronary artery bypass grafting x5, mechanical aortic valve replacement on chronic anticoagulation with warfarin, permanent atrial fibrillation, borderline ischemic cardiomyopathy with ejection fraction of 50%, ascending aortic ectasia, 4.5 cm, hypertension, and dyslipidemia. Currently, right hip pain controlled. Denies chest discomfort, unusual shortness of breath, orthopnea, PND, lower extremity edema, palpitations, lightheadedness, dizziness, syncope, or near syncope. He received 5 mg of vitamin K this morning in anticipation of orthopedic surgery. Denies any recent signs/symptoms of GI/ blood loss. No focal weakness, slurred speech, visual changes, facial asymmetry, or paresthesias. Chronic gait instability requiring use of a right knee brace unchanged. Offers no other concerns/complaints. Allergies Allergy/AdvReac Type Severity Reaction Status Date / Time Sulfa (Sulfonamide AdvReac Intermediate Unknown Unverified 03/01/20 13:13 Antibiotics) Home Medications Home Medications Medication Instructions Recorded Confirmed Type rosuvastatin 20 mg PO Q2D #0 tab 12/06/14 07/02/20 History warfarin See Rx Instructions .ROUTE 12/06/14 07/02/20 History .COMPLEX #0 tab ascorbic acid (vitamin C) [Vitamin 500 mg PO QAM #0 03/28/17 07/02/20 History C] coQ10 (ubiquinol) 200 mg PO QAM #0 03/28/17 07/02/20 History lisinopril 10 mg PO QAM #0 tab 03/28/17 07/02/20 History metoprolol tartrate 25 mg PO QAM #0 tab 03/28/17 07/02/20 History cholecalciferol (vitamin D3) 1,000 unit PO QAM 02/08/20 07/02/20 History [Vitamin D3] loratadine 10 mg PO QAM 02/08/20 07/02/20 History omega 4-ohl-pfw-fish oil [Fish Oil] 1 cap PO QAM 02/08/20 07/02/20 History vitamin B complex 1 tab PO QAM 02/08/20 07/02/20 History aspirin 81 mg PO QAM #0 tab 02/15/20 07/02/20 Rx gabapentin 100 mg PO TID 07/02/20 07/02/20 History omeprazole 20 mg PO DAILY 07/02/20 07/02/20 History polyethylene glycol 3350 17 g PO DAILY PRN 07/02/20 07/02/20 History sertraline See Rx Instructions .ROUTE .COMPLEX 07/02/20 07/02/20 History Patient History Medical History (Updated 07/03/20 @ 10:41 by Davonte Perry DO) Atrial fibrillation CAD (coronary artery disease) Cranial nerve palsy CVA (cerebral vascular accident) Patient denies HTN (hypertension) Intertrochanteric fracture of left femur Surgical History Aortic valve replaced S/P CABG x 5 Family History Unknown Family history non-contributory Social History Smoking Status: Former smoker Tobacco Type: Cigarettes Second Hand Exposure: No; Hx Alcohol Use: Yes Alcohol type: beer and wine Hx Substance Use: No Preferred Language: Bangladeshi Communication Ability: Effective Product Representative Required: No Beliefs That Will Affect Care: None Current Living Situation: Alone Current Living Situation Comment: Pt lives at the [facility]- Independent Living Feels Safe at Home: Yes Safety Concerns: Feels Safe At This Time Assistive Devices: Denture - Lower Review of Systems Review of Systems: All systems reviewed & are unremarkable except as noted in HPI & below Physical Exam Constitutional: well developed and well nourished; no acute distress and not ill appearing Respiratory: normal respiratory effort, lungs clear to auscultation Auscultation: no crackles, no rales, no rhonchi and no wheezes Cardiovascular: Rate/Rhythm: regular rate and regular rhythm Heart Sounds: normal S1, normal S2, + click and + murmur (2/6 low pitched early peaking systolic murmur heard throughout the precordi) Palpation: normal PMI Vessels: radial pulses present; no JVD and no carotid bruit Extremities: no edema Gastrointestinal (Abdomen): Inspection/Auscultation: abdomen normal to inspection and normal bowel sounds; abdomen not distended Percussion/Palpation: abdomen nontender, no guarding and abdomen not rigid Skin: no rashes, warm and dry Neurologic: CN's II-XI intact bilaterally and moves all extremities Motor/Sensory: no tremor Psychiatric: A+Ox3, euthymic affect Results & Data ([facility]) Vital Signs (Past 12 Hours) Vital Signs Temp Pulse Pulse Resp BP BP Pulse Ox 07/03/20 07:58 36.6 C 56 L 18 137/77 96 07/03/20 07:35 77 07/03/20 04:17 90 07/03/20 04:00 36.4 C L 73 20 138/69 97 07/03/20 00:30 65 17 160/84 H 99 07/03/20 00:22 36.6 C 58 L 16 152/79 H 100 07/03/20 00:00 68 20 138/83 98 07/02/20 23:31 66 19 147/71 H 91 07/02/20 23:30 74 23 94 07/02/20 23:00 78 20 148/71 H 98 07/02/20 22:44 66 14 97 07/02/20 22:00 69 19 141/69 H 96 07/02/20 21:49 70 24 152/83 H 97 07/02/20 21:09 36.8 C 68 18 155/97 H 99 (1) Closed intertrochanteric fracture of right hip Encounter type: initial encounter Fracture alignment: displaced Qualified Code(s): S72.141A - Displaced intertrochanteric fracture of right femur, initial encounter for closed fracture
--- NOTE | 2020-07-03 08:46 | XRay Report ---
XR hip RT 2V w pelvis HISTORY: 85 years-old Male fall acute pelvic pain status post fall COMPARISON: Pelvis and hip radiograph 05/04/2020 TECHNIQUE: AP view the pelvis with 2 views the right hip FINDINGS: Acute intertrochanteric fracture of the right femur is noted with mild cortical impaction. The lesser trochanteric fracture fragment is displaced medially approximately 4 cm. Moderate associated soft ti ssue swelling. Arterial calcifications. Surgical clips project over the scrotum. Intratrochanteric na il with medullary yandel of the left femur with healing fracture deformity, unchanged. Demineralized jadiel earance the bones with moderate osteoarthritis of the bilateral hips. Degeneration of the lumbar spin e. IMPRESSION: Acute mildly impacted intertrochanteric fracture of the right femur with medially displac ed lesser trochanteric fracture fragment. ACT 112: Negative or not required by law. The above report was generated using voice recognition software. It may contain grammatical, syntax o r spelling errors. Electronically signed by: Miguelangel Patel M.D. 07/03/2020 8:44 AM
--- NOTE | 2020-07-03 08:54 | XRay Report ---
XR chest 1V portable HISTORY: Atypical Chest Pain COMPARISON: Chest 02/08/2020. FINDINGS: No focal lung consolidations to suggest pneumonia. No evidence for pulmonary edema. Mild di ffuse interstitial thickening, unchanged. This is likely chronic. The heart remains mildly enlarged. There are poststernotomy changes and a cardiac valve prosthesis. Advanced degenerative changes within the right shoulder again noted. No pleural effusions. No pneumothorax. IMPRESSION: No significant change compared to the prior study. No acute process. Stable mild cardiomegaly. ACT 112: Negative or not required by law. Electronically signed by: Yuri Martin M.D. 07/03/2020 8:52 AM
--- NOTE | 2020-07-03 09:01 | Consultation Report ---
DATE OF CONSULTATION: 07/03/2020 CHIEF COMPLAINT: Right hip pain. HISTORY OF PRESENT ILLNESS: The patient is an 85-year-old elderly gentleman with multiple medical comorbidities who is a now just about 4 months out from IM nailing of a left intertrochanteric fracture, who sustained a fall yesterday at home. He walks with use of a walker. He has been recovering from his left hip fracture and he was going to the bathroom and not really sure what happened, but fell and injured his hip. He had acute onset of pain. He also bumped the back of his head. He has been unable to ambulate since. No preexisting hip pain. X-rays revealed intertrochanteric hip fracture. He was admitted to medicine service and we were consulted for evaluation. No real other injuries. No preexisting hip pain. He uses a walker to ambulate. No other complaints. PAST MEDICAL HISTORY: Significant for: 1. Elevated cholesterol. 2. Ischemic heart disease. 3. Aortic aneurysm. 4. Aortic valve replacement. 5. Hypertension. 6. Chronic AFib, on Coumadin. 7. General anxiety disorder. The remainder of the past medical history and is per the admission H and P. OBJECTIVE: VITAL SIGNS: Temperature is 36.6. Vital signs stable. GENERAL: Shows a pleasant elderly gentleman. He is lying in bed. He is awake, alert and oriented and appropriate. MUSCULOSKELETAL: General musculoskeletal exam reveals painless range of motion of cervical, thoracic and lumbar spine. He has got painless range of motion of both upper extremities and the left lower extremity. EXTREMITIES: Examination of the right lower extremity reveals his leg to be slightly flexed and externally rotated. He has got a brace on his knee. He has got some mild diffuse bruising in multiple spots on his body. There is no significant swelling. He can dorsiflex and plantarflex his foot appropriately. He is neurologically intact. X-RAYS: X-rays of the right hip from the ER were reviewed. It shows a right intertrochanteric hip fracture. This is a 3-part fracture. No significant hip arthritis. Shows evidence of a previous left hip fracture. Looks to be healing. ASSESSMENT: An 85-year-old gentleman with multiple medical comorbidities, currently on Coumadin for atrial fibrillation with a right displaced intertrochanteric hip fracture. His INR is still a bit elevated, but he has been given some vitamin K. He has been seen and medically optimized. Cardiology consult is pending. PLAN: We discussed treatment options. I do think it is in his best interest to get his hip fixed as rapidly as possible and get him mobilized. We are going to give him some more vitamin K this morning and hopefully fix this afternoon. The risks and benefits of right hip IM was explained to the patient including but not limited to DVT, PE, , infection, neurological injury, vascular injury, bleeding problems. Informed consent was obtained. We will begin DVT prophylaxis including thigh-high TEDs and SCDs. We will obviously hold his Coumadin. He is getting some vitamin K. We will check an INR at noon and hopefully it will be in the acceptable range. I do think it is in his best interest to get this fixed today rather than wait until tomorrow if at all possible.
[2020-07-03] MEDS ORDERED: BACITRACIN INJ 50,000 UNIT VIAL ONE (12:41)
[2020-07-03] MEDS ORDERED: EPINEPHrine INJ 1 MG/ML AMP ONE (12:41)
[2020-07-03] MEDS ORDERED: BUPIVACAINE 0.5 % 5 MG/1 ML MPF 30ML VIAL ONE (12:41)
[2020-07-03 12:46] LABS: INR 1.6 (0.9-1.1); Prothrombin Time 16.5 Seconds (9.0-12.0)
[2020-07-03] MEDS ORDERED: DEXAMETHASONE SOD INJ 4 MG/ML VIAL ONE (12:51)
[2020-07-03] MEDS ORDERED: fentaNYL citrate 100 MCG/2 ML VIAL ONE (12:51)
[2020-07-03] MEDS ORDERED: ROCURONIUM BROMIDE 10 MG/ML 5 ML VIAL IV ONE (12:51)
[2020-07-03] MEDS ORDERED: LIDOCAINE HCL 2% 2 ML VIAL/AMP(20MG/ML) INFIL ONE (12:51)
[2020-07-03] MEDS ORDERED: ONDANSETRON INJ 2 MG/ML 2 ML VIAL ONE (12:51)
[2020-07-03] MEDS ORDERED: PROPOFOL IV EMULSION 10 MG/ML 20 ML VIAL IV ONE (12:51)
[2020-07-03] MEDS ORDERED: GLYCOPYRROLATE 0.2 MG/ML VIAL ONE (12:52)
[2020-07-03] MEDS ORDERED: NEOSTIGMINE METHYLSULFATE 5 MG/5 ML SYR ONE (12:52)
--- NOTE | 2020-07-03 13:16 | Anesthesiology Consultation ---
Date of Service July 03, 2020 Assessment & Plan Chart Review Chart Review: Acceptable Risk for Surgery Consults Requested none History Surgery Operation Date: 07/03/20 13:00 Proposed Procedures p Intramedullary Jose Luis Femur(Left) - Luke Ashley MD Height/Weight Height: 5 ft 9 in Weight: 77.5 kg Allergies Allergy/AdvReac Type Severity Reaction Status Date / Time Sulfa (Sulfonamide AdvReac Intermediate Unknown Unverified 03/01/20 13:13 Antibiotics) Medications Home Medications Medication Instructions Recorded Confirmed Last Taken rosuvastatin 20 mg PO Q2D #0 tab 12/06/14 07/02/20 02/08/20 warfarin See Rx Instructions .ROUTE 12/06/14 07/02/20 02/07/20 .COMPLEX #0 tab ascorbic acid (vitamin C) [Vitamin 500 mg PO QAM #0 03/28/17 07/02/20 02/08/20 C] coQ10 (ubiquinol) 200 mg PO QAM #0 03/28/17 07/02/20 02/08/20 lisinopril 10 mg PO QAM #0 tab 03/28/17 07/02/20 02/08/20 metoprolol tartrate 25 mg PO QAM #0 tab 03/28/17 07/02/20 02/08/20 cholecalciferol (vitamin D3) 1,000 unit PO QAM 02/08/20 07/02/20 02/08/20 [Vitamin D3] loratadine 10 mg PO QAM 02/08/20 07/02/20 02/08/20 omega 8-amq-fnd-fish oil [Fish Oil] 1 cap PO QAM 02/08/20 07/02/20 02/08/20 vitamin B complex 1 tab PO QAM 02/08/20 07/02/20 02/08/20 aspirin 81 mg PO QAM #0 tab 02/15/20 07/02/20 02/08/20 gabapentin 100 mg PO TID 07/02/20 07/02/20 Unknown omeprazole 20 mg PO DAILY 07/02/20 07/02/20 Unknown polyethylene glycol 3350 17 g PO DAILY PRN 07/02/20 07/02/20 Unknown sertraline See Rx Instructions .ROUTE .COMPLEX 07/02/20 07/02/20 Unknown Active Medications Generic Name Dose Route Start Last Admin Trade Name Freq PRN Reason Stop Dose Admin Ascorbic Acid 500 mg 07/03/20 09:00 07/03/20 08:19 Ascorbic Acid 500 Mg Tab PO 08/02/20 08:59 500 mg QAM PATTIE Administration Aspirin 81 mg 07/03/20 09:00 07/03/20 08:20 Aspirin 81 Mg Ectab PO 08/02/20 08:59 Not Given QAM PATTIE Gabapentin 100 mg 07/03/20 09:00 07/03/20 08:18 Gabapentin 100 Mg Cap PO 08/02/20 08:59 100 mg TID PATTIE Administration Hydromorphone HCl 0.5 mg 07/03/20 00:57 07/03/20 11:53 Hydromorphone Inj 0.5 Mg/0.5 Ml Syr IV 07/17/20 00:56 0.5 mg Q4H PRN Administration Pain Sodium Chloride 1,000 mls @ 80 mls/hr 07/03/20 00:57 07/03/20 01:14 Nss 1000ml IV 08/02/20 00:56 80 mls/hr .[id number] PATTIE Administration Loratadine 10 mg 07/03/20 09:00 07/03/20 08:17 Loratadine 10 Mg Tab PO 08/02/20 08:59 10 mg QAM PATTIE Administration Metoprolol Tartrate 25 mg 07/03/20 09:00 07/03/20 08:18 Metoprolol Tartrate 25 Mg Tab PO 08/02/20 08:59 25 mg QAM PATTIE Administration Pantoprazole Sodium 40 mg 07/03/20 09:00 07/03/20 08:18 Pantoprazole 40 Mg Tab PO 08/02/20 08:59 40 mg DAILY PATTIE Administration Rosuvastatin Calcium 20 mg 07/03/20 09:00 07/03/20 08:19 Rosuvastatin Calcium 20 Mg Tab PO 08/02/20 08:59 20 mg Q2D@0900 PATTIE Administration Sertraline HCl 25 mg 07/03/20 09:00 07/03/20 08:20 Sertraline Hcl 50 Mg Tablet PO 07/14/20 09:01 25 mg QAM PATTIE Administration Vitamin B Complex 1 tab 07/03/20 09:00 07/03/20 08:18 Vitamin B Complex Tab PO 08/02/20 08:59 1 tab QAM PATTIE Administration Vitamin D 1,000 units 07/03/20 09:00 07/03/20 08:18 Cholecalciferol 1,000 Units 25 Mcg Tab PO 08/02/20 08:59 1,000 units QAM PATTIE Administration Past Medical History Medical History Atrial fibrillation CAD (coronary artery disease) Cranial nerve palsy CVA (cerebral vascular accident) Patient denies HTN (hypertension) Intertrochanteric fracture of left femur Past Family History Family History Unknown Family history non-contributory Past Surgical History Surgical History Aortic valve replaced S/P CABG x 5 Social History Smoking Status: Former smoker Hx Alcohol Use: Yes Alcohol type: beer and wine alcohol intake frequency: a few times a month Hx Substance Use: No Physical Exam Vital Signs Last Vital Signs Temp 36.6 C 07/03/20 12:40 Pulse 56 L 07/03/20 12:40 Resp 19 07/03/20 12:40 BP 137/77 07/03/20 12:40 Pulse Ox 96 07/03/20 12:40 Testing Laboratory Results 07/02/20 21:31 07/02/20 21:31 PT 16.5 Seconds (9.0-12.0) H 07/03/20 12:21 INR 1.6 (0.9-1.1) H 07/03/20 12:21 APTT 30.5 Seconds (21.0-31.0) 07/02/20 21:31 Blood Type AB Positive 07/02/20 21:31 Antibody Screen NEGATIVE 07/02/20 21:31
[2020-07-03] MEDS ORDERED: PROMETHAZINE HCL 12.5 MG in SODIUM CHLORIDE 0.9% 50 ML IV PRN (13:18)
[2020-07-03] MEDS ORDERED: fentaNYL citrate 100 MCG/2 ML VIAL IV PRN (13:18)
[2020-07-03] MEDS ORDERED: ePHEDrine sulfate 50 MG/ML AMP IV PRN (13:18)
[2020-07-03] MEDS ORDERED: HYDROmorphone INJ 2 MG/ML SYR/VIAL IV PRN (13:18)
[2020-07-03] MEDS ORDERED: METOCLOPRAMIDE HCL INJ 5 MG/ML 2 ML VIAL IV PRN (13:18)
[2020-07-03] MEDS ORDERED: ATROPINE SULFATE 0.1 MG/ML 10ML SYR IV PRN (13:18)
--- NOTE | 2020-07-03 14:57 | Fluoroscopy Report ---
FL femur RT 2V HISTORY: 85 years-old Male RT TROCH NAIL acute fracture of the right hip COMPARISON: Pelvis and right hip radiographs of same day TECHNIQUE: 4 spot fluoroscopic images of the right femur were obtained utilizing 92.4 seconds fluoros copy time FINDINGS: Intratrochanteric nail with elongated medullary yandel is noted fixating the previously described acute intertrochanteric fracture. The lesser trochanteric fracture fragment is again displaced medially. Ot herwise, there is improved now near-anatomic alignment. Suspected postsurgical soft tissue swelling a nd deep tissue air. Osteoarthritis of the knee. IMPRESSION: Fluoroscopic assistance as above. Please see operative report for further details. ACT 112: Negative or not required by law. The above report was generated using voice recognition software. It may contain grammatical, syntax o r spelling errors. Electronically signed by: Miguelangel Patel M.D. 07/03/2020 2:55 PM
--- NOTE | 2020-07-03 15:02 | Operative Report ---
Post Operative Report Pre & Post Diagnosis Operation Date: 07/03/20 13:00 Pre-Op Diagnosis: Right intertrochanteric hip Fracture Post-Op Diagnosis: Right intertrochanteric hip Fracture I identified the patient and participated in the time-out.: Yes Procedure Operation Date: 07/03/20 13:00 Actual Procedures p Right Hip Intramedullary Nail(Right) - Luke Ashley MD Surgeon Luke Ashley MD Cotton Picker CHRIST Irby Estimated Blood Loss 100 Findings Consistent with Post-Op Diagnosis Fluids 600 cc. Specimens None. Drains None. Complications none Disposition Accompanied Patient To Recovery: No Disposition: Recovery Room Indications Patient is an 85-year-old gentleman with multiple medical comorbidities who sustained a fall last evening at home. He walks normally with a walker. He just had a left hip fracture fixed about 4 to 5 months ago. He had no pre- existing hip pain. He sustained a fall while he was walking. He was brought the emergency room where x-rays revealed an intertrochanteric hip fracture. Patient was admitted by the medicine service, medically optimized, and indicated for surgical treatment. Patient is on Coumadin we did have his INR and nearly completely reversed before surgery. Description of Procedure Operative implants consist of: 1. Synthes right 400 mm x 11 mm long trochanteric nail. 2. 110 mm helical blade. 3. 54 mm x 5.0 mm distal interlocking screw. The patient was taken to the operating room identified and placed on the operating table supine position but all contact areas were properly padded. IV antibiotics tried by anesthesia team. A general anesthetic was implemented by anesthesia team. The patient was then placed on the fracture table. The right leg was placed in boot traction the left leg was placed in a well leg muhammad. I applied some longitudinal traction to the right leg and internally rotated the foot so the kneecap pointed to the ceiling. The fracture was nearly anatomically reduced. We did bring fluoroscopy and verified this. The right hip and leg were then scrubbed with Hibiclens and then prepped with ChloraPrep. It was draped in usual sterile fashion. A curvilinear incision was made just proximal to the tip of the trochanter. Sharp dissection got through subcutaneous tissue down the level gluteal fascia but the gluteal fascia was incised longitudinally in line with skin incision. A guidewire was then placed just lateral to the tip of the trochanter and in line with the IM canal on the both AP and lateral planes. Advanced this down the canal under fluoroscopic guidance. This is overreamed with a 17 mm reamer. I then exchanged this wire for the ball-tipped guidewire. This was placed down the IM canal. Then measured for nail length and a 400 mm nail was selected. I then reamed over the guidewire with the 10 mm reamer, followed by 11 mm reamer, followed by 12 mm reamer and a 12-1/2 mm reamer. We did get pretty good chatter starting at the 12. I then placed a 4 mm x 11 mm right long trochanteric nail over the wire and tapped into position. The lateral aiming arm was attached. I then elevated the leg as I advanced the lateral aiming arm to the lateral aspect of the femur through a stab incision. A guidewire was placed and central air aspect of the femoral head and neck in both the AP and lateral planes. This was measured and 110 mm helical blade was selected. The cortical drill was used to breach the lateral cortex and the triple reamer was set 110 mm in the canal was reamed for the helical blade. 810 mm helical blade was tapped into position. I then tightened the set screw proximally. I then compressed the fracture as it had distracted slightly. The guidewire was then removed and the lateral aiming arm was removed. Some final x-rays were obtained proximally. Attention drawn toward distal interlocking. Using the perfect [place] technique we. Placed the distal interlocking screw. Perfect circles were obtained. A stab incision was made. The drill was used and a 54 mm x 5 mm distal interlocking screw was placed. This was placed in the dynamic hole to allow some settling of the fracture. Some final x-rays were obtained. Attention drawn toward closing. All wounds were irrigated scopes also normal saline. At the IT band and/gluteal fascia were closed with #1 Vicryl suture in a running fashion the subcutaneous tissue of all wounds were then closed with 2-0 Dexon suture in a buried interrupted fashion. Skin was closed with skin patricia. Leg was then cleaned dried and a sterile dressing composed of Xeroform, 4 x 4's, ABD pad, foam tape were applied. The patient was then taken off the fracture table and placed on the transport bed. He was then brought out of general anesthesia and transferred to the recovery room in stable condition. The patient tolerated procedure well and there were no complications. Tiburcio Irby, my physician assistant grocery, was present for the entire procedure. His assistance was required for appropriate patient positioning, prepping and draping, surgical exposure, performing the technical details the operation, closure of the wound, and placement of the sterile bandage as well as taken the patient off the fracture table. I attest to the content of the Intraoperative Record and any orders documented therein. Any exceptions are noted below.
[2020-07-03] MEDS ORDERED: POLYETHYLENE (MIRALAX) 17 GM PACK PO PRN (15:55)
[2020-07-03] MEDS ORDERED: NALOXONE HCL 0.4 MG/1 ML VIAL/CARP IV PRN (15:55)
--- NOTE | 2020-07-03 15:56 | Anesthesiology Progress Note ---
Date of Service July 03, 2020 Anesthesia Post Procedure Vital Signs Vital Signs: Temp Pulse Pulse Resp BP BP Pulse Ox 07/03/20 15:40 60 16 139/68 100 07/03/20 15:30 65 17 137/60 100 07/03/20 15:20 53 L 15 122/37 L 100 07/03/20 15:10 51 L 14 116/57 L 100 07/03/20 15:00 37.3 C 50 L 14 97/41 L 100 07/03/20 12:40 36.6 C 56 L 19 137/77 96 07/03/20 08:22 67 07/03/20 07:58 36.6 C 56 L 18 137/77 96 07/03/20 07:35 77 07/03/20 04:17 90 07/03/20 04:00 36.4 C L 73 20 138/69 97 07/03/20 00:30 65 17 160/84 H 99 07/03/20 00:22 36.6 C 58 L 16 152/79 H 100 07/03/20 00:00 68 20 138/83 98 07/02/20 23:31 66 19 147/71 H 91 07/02/20 23:30 74 23 94 07/02/20 23:00 78 20 148/71 H 98 07/02/20 22:44 66 14 97 07/02/20 22:00 69 19 141/69 H 96 07/02/20 21:49 70 24 152/83 H 97 07/02/20 21:09 36.8 C 68 18 155/97 H 99 Pain Intensity Right Hip: Pain Intensity: 3 Transfer of Care Handoff Completed per policy Notes Mental Status: alert / awake / arousable and participated in evaluation Patient Amnestic to Procedure: Yes Nausea / Vomiting: adequately controlled Pain: adequately controlled Airway Patency, RR, SpO2: stable & adequate BP & HR: stable & adequate Hydration State: stable & adequate Anesthetic Complications: no major complications apparent
[2020-07-03] MEDS ORDERED: WARFARIN SOD 10 MG TAB PO ONE (16:15)
[2020-07-04] MEDS: SODIUM CHLORIDE 0.9% 1000ML 1,000 ML IV SCH (01:57)
[2020-07-04 05:39] LABS: Basophils # (auto) 0.01 K/uL (0-0.2); Basophils % (auto) 0.1 %; Hematocrit (blood only) 30.7 % (42-52); Hemoglobin 9.9 g/dL (14.0-18.0); Immature Granulocytes # (auto) 0.03 K/uL (0.00-0.02); Immature Granulocytes % (auto) 0.3 %; Lymphocytes # (auto) 0.82 K/uL (1.2-3.4); Lymphocytes % (auto) 7.1 %; Mean Corpuscular Hemoglobin 27.7 pg (25-34); Mean Corpuscular Hgb Conc 32.2 g/dL (32-36); Mean Platelet Volume 10.3 fL (7.4-10.4); Monocytes # (auto) 0.37 K/uL (0.11-0.59); Monocytes % (auto) 3.2 %; Neutrophils # (auto) 10.38 K/uL (1.4-6.5); Neutrophils % (auto) 89.3 %; Platelet Count 171 K/uL (130-400); RDW Coefficient of Variation 16.2 % (11.5-14.5); RDW Standard Deviation 51.8 fL (36.4-46.3); Red Blood Count 3.57 M/uL (4.7-6.1); White Blood Count 11.61 K/uL (4.8-10.8)
[2020-07-04 05:47] LABS: INR 1.2 (0.9-1.1); Prothrombin Time 12.7 Seconds (9.0-12.0)
[2020-07-04 06:06] LABS: BUN Creatinine Ratio 23.1 (10-20); Calcium 8.5 mg/dl (8.5-10.1); Creatinine Clr Calc Pharmacy 90.1 ml/min; Est GFR (African American) 106.3; Est GFR (Non-African American) 91.7; Magnesium 2.1 mg/dl (1.8-2.4); Potassium 4.6 mmol/L (3.5-5.1)
--- NOTE | 2020-07-04 07:04 | Hospitalist Progress Note ---
Date of Service July 04, 2020 Assessment & Plan (1) Closed intertrochanteric fracture of right hip: (2) Fall: (3) Right knee DJD: (4) Atrial fibrillation: (5) CAD (coronary artery disease): (6) Aortic valve replaced: (7) Mitral valve replaced: (8) S/P CABG x 5: ASSESSMENT AND PLAN: This is 85-year-old male who presents with mechanical fall and right hip fracture 1. Status post mechanical fall, right hip fracture. Pain control. Keep him n.p.o., gentle fluids. Because of multiple medical, cardiac problems, we will consult cardiology for preoperative clearance. Consult orthopedics. Closely monitor on med/tele. 2. History of coronary artery disease status post coronary artery bypass graft, history of ischemic cardiomyopathy, history of chronic intraventricular conduction delay, history of ectasia of ascending aorta on aspirin, statin and metoprolol. We will hold lisinopril until surgery is done. 3. History of rheumatic aortic valve disease, status post mechanical aortic valve, on chronic Coumadin. INR is 2.6, we will give vitamin K. IV heparin bridge once INR below 2.5 ( To hold during surgery) 4. Atrial fibrillation, rate controlled. Continue metoprolol. Warfarin restarted 5. Hyperlipidemia. On statin. 6. Hypertension. Continue home medication of metoprolol. Holding lisinopril for now,until surgery is done we will place him on IV hydralazine p.r.n. 7. Generalized anxiety. Continue Zoloft. 8. Gastroesophageal reflux disease. Continue omeprazole. 9. Deep venous thrombosis prophylaxis, Could not place on SCDs because of the hip fracture. Post-surgery start on IV heparin bridge (When OK c Ortho) Coumadin was restarted. 10. Code status level 1 full code. PT and OT prior to discharge. Social service to help with discharge planning. Labs Checked Cards on case Resume Post Op Care per Surgery Protocol Incentive Spirometry 10x per Hour Resume Relative Home Meds Where Appropriate PT/OT with appropriate fall precautions Transition from IV to PO Pain control DVT Prophylaxis Per Surgery Protocol, On Warfarin, possible IV Heparin bridge. Monitor Daily Labs ROS-Sore RLE, No Headache, No Visual Changes, No Nausea, No Vomiting, No Fever, No Chills, No Neck Pain or Stiffness, No Chest Pain, No Palpitations, No SOB, No LEMOS, No Cough, No Sputum, No Wheezing, No Abdominal Pain, No Diarrhea, No Hematemesis, No Hemoptysis, No Unexpected Weight Loss, No Flank pain, No Melena, No Hematochezia, No Frequency, No Urgency, No Burning, No Hematuria, No Rashes, No Diaphoresis. Appetite is Normal, Was confused last night Physical Exam Gen-AAO x 3, NAD, Afebrile, MS back to baseline Head-NCAT, EOMI, PERRLA, Anicteric Sclera, No Posterior Pharyngeal Erythema Neck-Supple, No JVD, No Thyromegaly, No Masses, No LAD, No Bruits Lungs-Clear to Auscultation Bilaterally, No Rales, No Rhonchi, No Wheezing, No Crepitus Chest-No S4, +S1, +S2, No S3, No Murmurs, No Rubs, No Gallops, No Ectopy Abdomen-Soft, Bowel Sounds Present, Non Tender, Non Distended, No Hepatomegaly, No Splenomegaly, No Palpable Masses, No Rebound, No Rigidity, No Guarding Musculoskeletal-, FROM x 3, No CVAT Extremities-No Cyanosis, No Clubbing, No Edema Nuero-Cranial Nerves II-XII grossly intact, Motor WNL, DTRs WNL, Strength WNL, Non Focal Psych-Normal Mood Admission and Anticipated Discharge Date Admission Date: July 03, 2020 Results & Data Results & Data ([facility]) Vital Signs (Past 12 Hours) Vital Signs Temp Pulse Pulse Resp BP Pulse Ox Pulse Ox 07/04/20 06:10 36.9 C 64 20 147/70 H 91 07/04/20 03:00 36.8 C 76 16 134/68 99 99 07/04/20 00:57 99 07/03/20 23:55 99 07/03/20 23:26 67 07/03/20 22:00 36.8 C 65 18 113/73 99 07/03/20 19:55 100 07/03/20 19:51 36.6 C 48 L 20 145/74 H 100 (1) Closed intertrochanteric fracture of right hip Encounter type: initial encounter Fracture alignment: displaced Qualified Code(s): S72.141A - Displaced intertrochanteric fracture of right femur, initial encounter for closed fracture (2) Fall Encounter type: initial encounter Qualified Code(s): W19.XXXA - Unspecified fall, initial encounter
[2020-07-04] MEDS ORDERED: Nursing to Pharmacy Communication SCH (07:30)
--- NOTE | 2020-07-04 07:56 | Progress Notes ---
DATE: 07/04/2020 SUBJECTIVE: An 85-year-old gentleman postop day 1 from IM nailing of a right intertrochanteric fracture. He is doing pretty well. Pain seems to be improved this morning. A little bit confused. Denies any chest pain or shortness of breath. Not feeling dizzy or lightheaded. OBJECTIVE: VITAL SIGNS: Temperature 36.9. Vital signs stable. GENERAL: Shows a pleasant elderly male. He is lying in bed, looks pretty comfortable. EXTREMITIES: Examination of the right leg reveals the leg to be well aligned. Dressing is clean, dry and intact. Some mild thigh swelling. He is neurologically intact. LABORATORY DATA: Hemoglobin is 9.9. Hematocrit 30.7. Electrolytes are stable. His INR this morning is 1.2. ASSESSMENT: An 85-year-old gentleman postoperative day 1 from intramedullary nailing of a right intertrochanteric fracture, doing well. He has got multiple other medical comorbidities. He looks pretty stable at the moment. PLAN: 1. DVT prophylaxis including thigh-high TEDs, SCDs, and back on Coumadin. He can slowly be placed back on his Coumadin with a goal of keeping his INR between 2 and 3 and preferably on the lower side of that. 2. PT/OT. Weight bear as tolerated on the right lower extremity. 3. Pain control, seems to be doing pretty well with current pain regimen. 4. Medical management as per the medicine service. 5. Disposition: He is a resident at the [facility]. He will likely return to the [facility]. He is orthopedically okay for discharge any time medically stable. I imagine it will take a day or two to get his INR back in appropriate range. I need to see him back in 2-3 weeks from his surgery date. Any orthopedic questions can be directed to me at [phone].
[2020-07-04] MEDS: PANTOprazole 40 MG TAB PO SCH (08:27)
[2020-07-04] MEDS: VITAMIN B COMPLEX TAB PO SCH (08:27)
[2020-07-04] MEDS: LORATADINE 10 MG TAB PO SCH (08:27)
[2020-07-04] MEDS: ASPIRIN 81 MG ECTAB PO SCH (08:27)
[2020-07-04] MEDS: GABAPENTIN 100 MG CAP PO SCH ×3 (08:28→20:11)
[2020-07-04] MEDS: SERTRALINE HCL 50 MG TABLET PO SCH (08:28)
[2020-07-04] MEDS: ASCORBIC ACID 500 MG TAB PO SCH (08:28)
[2020-07-04] MEDS: CHOLECALCIFEROL 1,000 UNITS 25 MCG TAB PO SCH (08:28)
[2020-07-04] MEDS: METOPROLOL TARTRATE 25 MG TAB PO SCH (08:28)
[2020-07-04] MEDS: POLYETHYLENE (MIRALAX) 17 GM PACK PO PRN (14:06)
[2020-07-04] MEDS ORDERED: Heparin IV Low Dose *NO* Bolus IV SCH (14:30)
--- NOTE | 2020-07-04 14:37 | Cardiology Progress Note ---
Date of Service July 04, 2020 Assessment & Plan (1) Closed intertrochanteric fracture of right hip: (2) Chronic atrial fibrillation: (3) Aortic valve replaced: Mr Cadena is an 85-year-old male who follows with Dr. Mendoza of our practice as an outpatient. 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 He presented with a mechanical fall with right hip fracture and underwent surgical intramedullary nailing on 07/03/2020. He is now 24 hours postop. Hemoglobin was 12.7 on presentation 07/02/2020, and 9.9 today. INR on presentation was 2.6, having received vitamin K preoperatively, INR was 1.2 today. He received 10 mg of Coumadin postoperatively last evening, will administer 5 mg today. I discussed his anticoagulation with Dr. Ashley of orthopedics by phone. He was agreeable to starting low-dose unfractioned heparin infusion, without bolus, for ongoing anticoagulation given the patient's history of permanent atrial fibrillation and mechanical aortic valve replacement. Typical INR goal for modern era mechanical AVR is 2-3. Update CBC and INR tomorrow. Admission and Anticipated Discharge Date Admission Date: July 03, 2020 Subjective Patient seen in cardiology follow-up today having been seen in preoperative cardiac assessment by Dr. Davonte Perry of our practice yesterday. Patient feeling well, denies any chest discomfort or shortness of breath. Pain well controlled. Telemetry reveals atrial fibrillation with ventricular rates in the range of 50 to 60 bpm. Longstanding history of left bundle branch block. Review of Systems Review of Systems: All systems reviewed & are unremarkable except as noted in HPI & below Physical Exam Physical Exam: Temp Pulse Resp BP Pulse Ox 36.7 C 68 18 120/73 99 07/04/20 11:00 07/04/20 11:00 07/04/20 11:00 07/04/20 11:07/04/20 11:00 Constitutional: WD/WN, vitals as above Respiratory: normal respiratory effort, lungs clear to auscultation Cardiovascular: Rate/Rhythm: + irregularly irregular Heart Sounds: no murmur Mckinley prosthetic heart valve sounds noted, no lower extremity edema Gastrointestinal (Abdomen): normal bowel sounds, soft, nontender, no hepatosplenomegaly Neurologic: PERRL, EOMI, accommodation nl, no face palsy, no dysarthria Results & Data ([facility]) Vital Signs (Past 12 Hours) Vital Signs Temp Pulse Pulse Pulse Resp BP BP 07/04/20 11:00 36.7 C 68 18 120/73 07/04/20 07:27 59 L 07/04/20 06:10 36.9 C 64 20 147/70 H 07/04/20 03:00 36.8 C 76 16 134/68 Pulse Ox Pulse Ox 07/04/20 11:00 99 07/04/20 07:27 07/04/20 06:10 91 07/04/20 03:00 99 99 (1) Closed intertrochanteric fracture of right hip Encounter type: initial encounter Fracture alignment: displaced Qualified Code(s): S72.141A - Displaced intertrochanteric fracture of right femur, initial encounter for closed fracture
[2020-07-04 15:10] LABS: Hemoglobin 9.5 g/dL (14.0-18.0); Mean Corpuscular Hemoglobin 28.2 pg (25-34); Mean Corpuscular Volume 86.1 fL (80-100); Mean Platelet Volume 10.1 fL (7.4-10.4); Platelet Count 194 K/uL (130-400); RDW Coefficient of Variation 16.4 % (11.5-14.5); RDW Standard Deviation 51.5 fL (36.4-46.3); Red Blood Count 3.37 M/uL (4.7-6.1); White Blood Count 16.92 K/uL (4.8-10.8)
[2020-07-04 15:26] LABS: Mean Corpuscular Hgb Conc 32.8 g/dL (32-36)
[2020-07-04 15:30] LABS: Eosinophils # (auto) 0.02 K/uL (0-0.5); Eosinophils % (auto) 0.1 %; Immature Granulocytes # (auto) 0.04 K/uL (0.00-0.02); Immature Granulocytes % (auto) 0.2 %; Lymphocytes # (auto) 1.76 K/uL (1.2-3.4); Lymphocytes % (auto) 10.4 %; Monocytes # (auto) 0.87 K/uL (0.11-0.59); Monocytes % (auto) 5.1 %; Neutrophils # (auto) 14.23 K/uL (1.4-6.5); Neutrophils % (auto) 84.2 %
[2020-07-04] MEDS: HEPARIN SODIUM/DEXTROSE 25,000 UNITS/500 ML BAG IV SCH (15:53)
[2020-07-04] MEDS: WARFARIN SOD 5 MG TAB PO SCH (15:53)
[2020-07-04 16:17] LABS: Partial Thromboplastin Time 28.4 Seconds (21.0-31.0)
[2020-07-04 22:04] LABS: Partial Thromboplastin Ratio 1.5; Partial Thromboplastin Time 42.5 Seconds (21.0-31.0)
[2020-07-04] MEDS: MELATONIN 3 MG TAB PO PRN (23:21)
[2020-07-05] MEDS: ACETAMINOPHEN 325 MG TAB PO PRN (00:13)
[2020-07-05 06:21] LABS: Hematocrit (blood only) 27.1 % (42-52); Hemoglobin 8.8 g/dL (14.0-18.0); Mean Corpuscular Hemoglobin 27.8 pg (25-34); Mean Corpuscular Hgb Conc 32.5 g/dL (32-36); Mean Corpuscular Volume 85.5 fL (80-100); Mean Platelet Volume 9.8 fL (7.4-10.4); Platelet Count 164 K/uL (130-400); RDW Coefficient of Variation 16.2 % (11.5-14.5); RDW Standard Deviation 50.7 fL (36.4-46.3); Red Blood Count 3.17 M/uL (4.7-6.1); White Blood Count 11.74 K/uL (4.8-10.8)
[2020-07-05 06:48] LABS: Albumin Level 2.6 gm/dl (3.4-5.0); BUN Creatinine Ratio 26.8 (10-20); Calcium 8.6 mg/dl (8.5-10.1); Est GFR (African American) 110.9; Est GFR (Non-African American) 95.7
[2020-07-05 06:49] LABS: INR 1.2 (0.9-1.1); Partial Thromboplastin Ratio 1.8; Prothrombin Time 12.5 Seconds (9.0-12.0)
[2020-07-05 06:50] LABS: Partial Thromboplastin Time 49.3 Seconds (21.0-31.0)
[2020-07-05 06:51] LABS: Bilirubin,Total 0.8 mg/dl (0.2-1); Globulin 2.6 gm/dl (2.5-4.0); Total Protein 5.2 gm/dl (6.4-8.2)
[2020-07-05 07:04] LABS: Basophils # (auto) 0.01 K/uL (0-0.2); Basophils % (auto) 0.1 %; Eosinophils # (auto) 0.15 K/uL (0-0.5); Eosinophils % (auto) 1.3 %; Immature Granulocytes # (auto) 0.03 K/uL (0.00-0.02); Immature Granulocytes % (auto) 0.3 %; Lymphocytes # (auto) 1.72 K/uL (1.2-3.4); Lymphocytes % (auto) 14.7 %; Monocytes # (auto) 0.46 K/uL (0.11-0.59); Monocytes % (auto) 3.9 %; Neutrophils # (auto) 9.37 K/uL (1.4-6.5); Neutrophils % (auto) 79.7 %
[2020-07-05] MEDS: METOPROLOL TARTRATE 25 MG TAB PO SCH (08:24)
[2020-07-05] MEDS: ROSUVASTATIN CALCIUM 20 MG TAB PO SCH (08:24)
[2020-07-05] MEDS: PANTOprazole 40 MG TAB PO SCH (08:24)
[2020-07-05] MEDS: VITAMIN B COMPLEX TAB PO SCH (08:24)
[2020-07-05] MEDS: ASCORBIC ACID 500 MG TAB PO SCH (08:24)
[2020-07-05] MEDS: GABAPENTIN 100 MG CAP PO SCH ×3 (08:24→20:01)
[2020-07-05] MEDS: ASPIRIN 81 MG ECTAB PO SCH (08:24)
[2020-07-05] MEDS: LORATADINE 10 MG TAB PO SCH (08:24)
[2020-07-05] MEDS: SERTRALINE HCL 50 MG TABLET PO SCH (08:24)
[2020-07-05] MEDS: CHOLECALCIFEROL 1,000 UNITS 25 MCG TAB PO SCH (08:25)
--- NOTE | 2020-07-05 09:08 | Hospitalist Progress Note ---
Date of Service July 05, 2020 Assessment & Plan (1) Closed intertrochanteric fracture of right hip: (2) Fall: (3) Right knee DJD: (4) Atrial fibrillation: (5) CAD (coronary artery disease): (6) Aortic valve replaced: (7) Mitral valve replaced: (8) S/P CABG x 5: ASSESSMENT AND PLAN: This is 85-year-old male who presents with mechanical fall and right hip fracture 1. Status post mechanical fall, right hip fracture. Pain control. Restarted Warfarin last night, IV Heparin started today for bridging-No Bolus, Cards and Ortho following 2. History of coronary artery disease status post coronary artery bypass graft, history of ischemic cardiomyopathy, history of chronic intraventricular conduction delay, history of ectasia of ascending aorta on aspirin, statin and metoprolol. 3. History of rheumatic aortic valve disease, status post mechanical aortic valve, on chronic Coumadin. 4. Atrial fibrillation, rate controlled. Continue metoprolol. Warfarin restarted 5. Hyperlipidemia. On statin. 6. Hypertension. Continue home medication of metoprolol and resume Lisinopril. 7. Generalized anxiety. Continue Zoloft. 8. Gastroesophageal reflux disease. Continue omeprazole. 9. Deep venous thrombosis prophylaxis, On IV heparin bridge Coumadin was restarted. 10. Code status level 1 full code. PT/OT [facility] on [facility] Labs Checked Resume Post Op Care per Surgery Protocol Incentive Spirometry 10x per Hour Resume Relative Home Meds Where Appropriate PT/OT with appropriate fall precautions Transition to PO Pain control DVT Prophylaxis On Warfarin and IV Heparin bridge. Monitor Daily Labs ROS-Sore RLE when he moves it off the bed, No Headache, No Visual Changes, No Nausea, No Vomiting, No Fever, No Chills, No Neck Pain or Stiffness, No Chest Pain, No Palpitations, No SOB, No LEMOS, No Cough, No Sputum, No Wheezing, No Abdominal Pain, No Diarrhea, No Hematemesis, No Hemoptysis, No Unexpected Weight Loss, No Flank pain, No Melena, No Hematochezia, No Frequency, No Urgency, No Burning, No Hematuria, No Rashes, No Diaphoresis. Appetite is Normal, Physical Exam Gen-AAO x 3, NAD, Afebrile, MS back to baseline Head-NCAT, EOMI, PERRLA, Anicteric Sclera, No Posterior Pharyngeal Erythema Neck-Supple, No JVD, No Thyromegaly, No Masses, No LAD, No Bruits Lungs-Clear to Auscultation Bilaterally, No Rales, No Rhonchi, No Wheezing, No Crepitus Chest-No S4, +S1, +S2, No S3, No Murmurs, No Rubs, No Gallops, No Ectopy Abdomen-Soft, Bowel Sounds Present, Non Tender, Non Distended, No Hepatomegaly, No Splenomegaly, No Palpable Masses, No Rebound, No Rigidity, No Guarding Musculoskeletal-, FROM x 3, No CVAT Extremities-No Cyanosis, No Clubbing, No Edema Nuero-Cranial Nerves II-XII grossly intact, Motor WNL, DTRs WNL, Strength WNL, Non Focal Psych-Normal Mood Admission and Anticipated Discharge Date Admission Date: July 03, 2020 Results & Data Results & Data ([facility]) Vital Signs (Past 12 Hours) Vital Signs Temp Pulse Pulse Resp BP Pulse Ox 07/05/20 08:00 36.4 C L 65 18 134/73 98 07/05/20 07:04 60 07/05/20 04:00 36.5 C 68 18 134/76 97 07/05/20 03:22 67 07/04/20 23:46 36.5 C 68 18 120/69 96 (1) Closed intertrochanteric fracture of right hip Encounter type: initial encounter Fracture alignment: displaced Qualified Code(s): S72.141A - Displaced intertrochanteric fracture of right femur, initial encounter for closed fracture (2) Fall Encounter type: initial encounter Qualified Code(s): W19.XXXA - Unspecified fall, initial encounter
--- NOTE | 2020-07-05 09:26 | Progress Notes ---
DATE: 07/05/2020 SUBJECTIVE: An 85-year-old gentleman postop day 2 from IM nailing of a right intertrochanteric fracture. He is doing pretty well. Pain is controlled. Denies any chest pain or shortness of breath. Not feeling dizzy or lightheaded. OBJECTIVE: VITAL SIGNS: Temperature 36.4. Vital signs stable. GENERAL: Shows a pleasant elderly male. He is sitting up in bed. He is awake, alert and oriented. EXTREMITIES: Examination of the right hip and leg reveals the leg to be well aligned. Dressing is clean, dry, and intact. He can dorsiflex and plantarflex his foot appropriately. He is neurologically intact. LABORATORY DATA: Hemoglobin 8.8. Hematocrit 27.1. Electrolytes are stable. INR is 1.2. ASSESSMENT: An 85-year-old gentleman with multiple medical comorbidities postop day 2 from IM nailing of a right intertrochanteric fracture. Orthopedically, he is doing well. Pain seems to be controlled. Still working on getting his INR back up. He is on heparin for multiple reasons until his INR is improved. Managed by cardiology. PLAN: 1. DVT prophylaxis including thigh-high TEDs, SCDs, and back on Coumadin. He has been dosed to managed by cardiology. He is currently on heparin. 2. PT/OT. He can fully weightbear on the right lower extremity. 3. Pain control, seems to be doing pretty well with current pain regimen. 4. Medical management as per the medicine service. 5. Disposition: He is orthopedically okay for discharge any time. He will likely [facility] to the [facility]. I need to see him back in 2-3 weeks from surgery date. Any orthopedic questions can be directed to me at [phone].
[2020-07-05] MEDS: HEPARIN SODIUM/DEXTROSE 25,000 UNITS/500 ML BAG IV SCH (15:08)
[2020-07-05] MEDS: WARFARIN SOD 5 MG TAB PO SCH (15:09)
--- NOTE | 2020-07-05 17:51 | Cardiology Progress Note ---
Date of Service July 05, 2020 Assessment & Plan (1) Closed intertrochanteric fracture of right hip: (2) Chronic atrial fibrillation: (3) Aortic valve replaced: INR 1.2, hemoglobin 8.8. Postop, intramedullary nail, with history of chronic atrial fibrillation and mechanical aortic valve prosthesis. Continue unfractionated heparin, low-dose, no bolus, Coumadin. Activity as tolerated. Admission and Anticipated Discharge Date Admission Date: July 03, 2020 Subjective Patient seen in cardiology follow-up. No complaints. Tolerating unfractionated heparin. Telemetry reveals rate controlled atrial fibrillation. Physical Exam Physical Exam: Temp Pulse Resp BP Pulse Ox 36.3 C L 53 L 18 131/77 99 07/05/20 15:00 07/05/20 16:14 07/05/20 15:00 07/05/20 15:00 07/05/20 15:00 Constitutional: WD/WN, vitals as above Respiratory: normal respiratory effort, lungs clear to auscultation Cardiovascular: Rate/Rhythm: + irregularly irregular Heart Sounds: no murmur Gastrointestinal (Abdomen): normal bowel sounds, soft, nontender, no hepatosplenomegaly Neurologic: PERRL, EOMI, accommodation nl, no face palsy, no dysarthria Results & Data ([facility]) Vital Signs (Past 12 Hours) Vital Signs Temp Pulse Pulse Resp BP BP Pulse Ox 07/05/20 16:14 53 L 07/05/20 15:00 36.3 C L 60 18 131/77 99 07/05/20 11:00 36.4 C L 69 18 113/72 100 07/05/20 08:00 36.4 C L 65 18 134/73 98 07/05/20 07:04 60 Pulse Ox 07/05/20 16:14 07/05/20 15:00 99 07/05/20 11:00 07/05/20 08:00 07/05/20 07:04 Laboratory Results Cardiac Enzymes 07/05/20 Range/Units 06:03 AST 29 (15-37) U/L Coagulation 07/04/20 07/05/20 Range/Units 21:43 06:03 PT 12.5 H (9.0-12.0) Seconds APTT 42.5 H 49.3 H* (21.0-31.0) Seconds CBC 07/05/20 Range/Units 06:03 WBC 11.74 H (4.8-10.8) K/uL RBC 3.17 L (4.7-6.1) M/uL Hgb 8.8 L (14.0-18.0) g/dL Hct 27.1 L (42-52) % Plt Count 164 (130-400) K/uL Neut # (Auto) 9.37 H (1.4-6.5) K/uL Lymph # (Auto) 1.72 (1.2-3.4) K/uL [place] # (Auto) 0.46 (0.11-0.59) K/uL Eos # (Auto) 0.15 (0-0.5) K/uL Baso # (Auto) 0.01 (0-0.2) K/uL Comprehensive Metabolic Panel 07/05/20 Range/Units 06:03 Sodium 132 L (136-145) mmol/L Potassium 4.0 (3.5-5.1) mmol/L Chloride 100 (98-107) mmol/L Carbon Dioxide 28 (21-32) mmol/L BUN 15 (7-18) mg/dl Creatinine 0.55 L (0.6-1.4) mg/dl Glucose 97 (70-99) mg/dl Calcium 8.6 (8.5-10.1) mg/dl AST 29 (15-37) U/L ALT 18 (12-78) U/L Alkaline Phosphatase 104 (45-117) U/L Total Protein 5.2 L (6.4-8.2) gm/dl Albumin 2.6 L (3.4-5.0) gm/dl Intake and Output 07/05/20 07/05/20 07/05/20 06:59 14:59 22:59 Intake Total 478.016 / 1618.016 518 / 673.483 155.483 / 673.483 Output Total 450 / 1400 350 / 350 Balance 28.016 / 218.016 168 / 323.483 155.483 / 323.483 Intake: IV 278.016 / 278.016 155.483 / 155.483 HEPARIN SODIUM/DEXTROSE 25,000 278.016 / 278.016 155.483 / 155.483 units In 500 ml @ 950 UNITS/HR 19 mls/hr IV .Q24H [facility] Rx#: [id number] Oral 200 / 1340 518 / 518 Output: Urine 450 / 1400 350 / 350 Other: Weight 78 kg Weight Measurement Method Built in [facility] (1) Closed intertrochanteric fracture of right hip Encounter type: initial encounter Fracture alignment: displaced Qualified Code(s): S72.141A - Displaced intertrochanteric fracture of right femur, initial encounter for closed fracture
[2020-07-06 05:54] LABS: Hematocrit (blood only) 25.9 % (42-52); Hemoglobin 8.4 g/dL (14.0-18.0); Mean Corpuscular Hemoglobin 27.8 pg (25-34); Mean Corpuscular Hgb Conc 32.4 g/dL (32-36); Mean Corpuscular Volume 85.8 fL (80-100); Mean Platelet Volume 9.7 fL (7.4-10.4); Platelet Count 182 K/uL (130-400); RDW Coefficient of Variation 16.5 % (11.5-14.5); RDW Standard Deviation 52.1 fL (36.4-46.3); Red Blood Count 3.02 M/uL (4.7-6.1); White Blood Count 10.02 K/uL (4.8-10.8)
[2020-07-06 06:12] LABS: Partial Thromboplastin Ratio 1.8
[2020-07-06 06:13] LABS: BUN Creatinine Ratio 28.2 (10-20); Calcium 8.2 mg/dl (8.5-10.1); Creatinine Clr Calc Pharmacy 103.8 ml/min; Est GFR (African American) 112.6; Est GFR (Non-African American) 97.2
[2020-07-06 06:43] LABS: Partial Thromboplastin Time 50.7 Seconds (21.0-31.0)
[2020-07-06] MEDS: GABAPENTIN 100 MG CAP PO SCH ×3 (07:32→20:53)
[2020-07-06] MEDS: LORATADINE 10 MG TAB PO SCH (07:32)
[2020-07-06] MEDS: ASCORBIC ACID 500 MG TAB PO SCH (07:32)
[2020-07-06] MEDS: POLYETHYLENE (MIRALAX) 17 GM PACK PO PRN (07:32)
[2020-07-06] MEDS: METOPROLOL TARTRATE 25 MG TAB PO SCH (07:32)
[2020-07-06] MEDS: SERTRALINE HCL 50 MG TABLET PO SCH (07:32)
[2020-07-06] MEDS: ASPIRIN 81 MG ECTAB PO SCH (07:32)
[2020-07-06] MEDS: PANTOprazole 40 MG TAB PO SCH (07:32)
[2020-07-06] MEDS: VITAMIN B COMPLEX TAB PO SCH (07:32)
[2020-07-06] MEDS: CHOLECALCIFEROL 1,000 UNITS 25 MCG TAB PO SCH (07:32)
[2020-07-06 08:32] LABS: INR 1.5 (0.9-1.1); Prothrombin Time 15.2 Seconds (9.0-12.0)
[2020-07-06] MEDS: HYDROmorphone INJ 0.5 MG/0.5 ML SYR IV PRN (10:30)
--- NOTE | 2020-07-06 12:41 | Hospitalist Progress Note ---
Date of Service July 06, 2020 Assessment & Plan (1) Closed intertrochanteric fracture of right hip: (2) Fall: (3) Right knee DJD: (4) Atrial fibrillation: (5) CAD (coronary artery disease): (6) Aortic valve replaced: (7) Mitral valve replaced: (8) S/P CABG x 5: ASSESSMENT AND PLAN: This is 85-year-old male who presents with mechanical fall and right hip fracture 1. Status post mechanical fall, right hip fracture. S/p R hip intramedullary Nail on 07/03/[address] Ashley Resume Post Op Care per Surgery Protocol Incentive Spirometry 10x per Hour Pain control. Restarted Warfarin 5 mg daily, IV Heparin started for bridging-No Bolus, Cards and Ortho following DVT prophylaxis including thigh-high TEDs, SCDs, and back on Coumadin. PT/OT. Pt can fully weightbear on the right lower extremity. Follow up with orthopedics, Dr. Ashley, in 2-3 weeks from surgery date. Post acute blood loss anemia Hgb down to 8.4, initially Hgb about 12, relatively stable for past couple of days, cont. to monitor, no need for blood transfusion at this time 2. History of CAD /p coronary artery bypass graft, history of ischemic cardiomyopathy, history of chronic intraventricular conduction delay, history of ectasia of ascending aorta on aspirin, statin and metoprolol. 3. History of rheumatic aortic valve disease, status post mechanical aortic valve, on chronic Coumadin. 4. Atrial fibrillation, rate controlled. Continue metoprolol. Warfarin restarted 5. Hyperlipidemia. On statin. 6. Hypertension. Continue home medication of metoprolol and resume Lisinopril. 7. Generalized anxiety. Continue Zoloft. 8. Gastroesophageal reflux disease. Continue omeprazole. 9. Deep venous thrombosis prophylaxis, On IV heparin bridge Coumadin was restarted. Disposition: PT/OT [facility] [place] [facility] DC Labs Checked Admission and Anticipated Discharge Date Admission Date: July 03, 2020 Subjective Pt is sitting in the chair in NAD. No acute events overnight. On IV heparin, warfarin 5 mg daily. hx of mechanical valve, Afib. INR 1.5 today. Hgb 8.4 Pt denies fever, chills, chest pain, shortness of breath. abd. pain. Reports constipation, stool softener provided by nursing staff. Plan to [facility] to [facility] when INR therapeutic. Review of Systems Review of Systems: All systems reviewed & are unremarkable except as noted in HPI & below Constitutional: no fever and no chills Respiratory: no cough and no dyspnea Cardiovascular: no chest pain and no palpitations Gastrointestinal: + constipation; no abdominal pain, no nausea and no vomiting Physical Exam Physical Exam: Gen- elderly male sitting up in chair, AAO x 3, answering questions appropriately, NAD, Afebrile, MS back to baseline Head- NCAT, EOMI, Anicteric Sclera Neck- Supple, No JVD Lungs- Clear to Auscultation Bilaterally, No Rales, No Rhonchi, No Wheezing Chest- irregularly irregular, + crisp click sound, No Murmurs Abdomen- Soft, Bowel Sounds Present, Non Tender, Non Distended, No Rigidity, No Guarding Musculoskeletal- FROM x 3, No CVAT Extremities- No Cyanosis, No Clubbing, No Edema Neuro- alert and oriented, answering questions appropriately,speech fluent, no facial asymmetry, moves extremities spontaneously Psych- Normal Mood Results & Data Results & Data ([facility]) Vital Signs (Past 12 Hours) Vital Signs Temp Pulse Pulse Resp BP BP Pulse Ox 07/06/20 11:24 36.3 C L 74 18 148/75 H 99 07/06/20 08:00 72 07/06/20 03:39 36.7 C 75 20 148/78 H 98 Laboratory Results 07/06/20 07/06/20 07/06/20 Range/Units 05:31 05:31 05:31 WBC (4.8-10.8) K/uL RBC (4.7-6.1) M/uL Hgb (14.0-18.0) g/dL Hct (42-52) % MCV (80-100) fL MCH (25-34) pg MCHC (32-36) g/dL RDW Std Deviation (36.4-46.3) fL RDW Coeff of Miller (11.5-14.5) % Plt Count (130-400) K/uL MPV (7.4-10.4) fL PT 15.2 H (9.0-12.0) Seconds INR 1.5 H (0.9-1.1) APTT 50.7 H* (21.0-31.0) Seconds PTT Ratio 1.8 Sodium 132 L (136-145) mmol/L Potassium 4.0 (3.5-5.1) mmol/L Chloride 100 (98-107) mmol/L Carbon Dioxide 28 (21-32) mmol/L Anion Gap 4.0 (3-11) BUN 15 (7-18) mg/dl Creatinine 0.53 L (0.6-1.4) mg/dl Est Cr Clr Drug Dosing 103.8 ml/min Est GFR ( Amer) 112.6 Est GFR (Non-Af Amer) 97.2 BUN/Creatinine Ratio 28.2 H (10-20) Glucose 103 H (70-99) mg/dl Calcium 8.2 L (8.5-10.1) mg/dl 07/06/20 Range/Units 05:31 WBC 10.02 (4.8-10.8) K/uL RBC 3.02 L (4.7-6.1) M/uL Hgb 8.4 L (14.0-18.0) g/dL Hct 25.9 L (42-52) % MCV 85.8 (80-100) fL MCH 27.8 (25-34) pg MCHC 32.4 (32-36) g/dL RDW Std Deviation 52.1 H (36.4-46.3) fL RDW Coeff of Miller 16.5 H (11.5-14.5) % Plt Count 182 (130-400) K/uL MPV 9.7 (7.4-10.4) fL PT (9.0-12.0) Seconds INR (0.9-1.1) APTT (21.0-31.0) Seconds PTT Ratio Sodium (136-145) mmol/L Potassium (3.5-5.1) mmol/L Chloride (98-107) mmol/L Carbon Dioxide (21-32) mmol/L Anion Gap (3-11) BUN (7-18) mg/dl Creatinine (0.6-1.4) mg/dl Est Cr Clr Drug Dosing ml/min Est GFR ( Amer) Est GFR (Non-Af Amer) BUN/Creatinine Ratio (10-20) Glucose (70-99) mg/dl Calcium (8.5-10.1) mg/dl Medications Administered Current Inpatient Medications Acetaminophen (Acetaminophen 325 Mg Tab) 650 mg PO Q4H PRN PRN Reason: Pain or Fever Stop: 08/02/20 00:56 Last Admin: 07/05/20 00:13 Dose: 650 mg Documented by: Ascorbic Acid (Ascorbic Acid 500 Mg Tab) 500 mg PO [facility] Stop: 08/02/20 08:59 Last Admin: 07/06/20 07:32 Dose: 500 mg Documented by: Aspirin (Aspirin 81 Mg Ectab) 81 mg PO [facility] Stop: 08/02/20 08:59 Last Admin: 07/06/20 07:32 Dose: 81 mg Documented by: Gabapentin (Gabapentin 100 Mg Cap) 100 mg PO TID [facility] Stop: 08/02/20 08:59 Last Admin: 07/06/20 07:32 Dose: 100 mg Documented by: Hydralazine HCl (Hydralazine Hcl 20 Mg/Ml Vial) 5 mg IV Q6H PRN PRN Reason: Hypertension Stop: 08/02/20 00:56 Hydromorphone HCl (Hydromorphone Inj 0.5 Mg/0.5 Ml Syr) 0.5 mg IV Q4H PRN PRN Reason: Pain Stop: 07/17/20 00:56 Last Admin: 07/06/20 10:30 Dose: 0.5 mg Documented by: Heparin Sodium/Dextrose (Heparin Sodium/Dextrose) 25,000 units in 500 mls @ 19 mls/hr IV .Q24H [facility]; Protocol Stop: 08/03/20 14:29 Last Titration: 07/06/20 06:52 Dose: 950 units/hr, 19 mls/hr Documented by: Loratadine (Loratadine 10 Mg Tab) 10 mg PO [facility] Stop: 08/02/20 08:59 Last Admin: 07/06/20 07:32 Dose: 10 mg Documented by: Melatonin (Melatonin 3 Mg Tab) 3 mg PO HS PRN PRN Reason: Sleep Stop: 08/03/20 22:34 Last Admin: 07/04/20 23:21 Dose: 3 mg Documented by: Metoprolol Tartrate (Metoprolol Tartrate 25 Mg Tab) 25 mg PO [facility] Stop: 08/02/20 08:59 Last Admin: 07/06/20 07:32 Dose: 25 mg Documented by: Naloxone HCl (Naloxone Hcl 0.4 Mg/1 Ml Vial/Carp) 0.1 mg IV UD PRN PRN Reason: Opioid Overdose Stop: 08/02/20 15:54 Nitroglycerin (Nitroglycerin Sl 0.4 Mg/Tab Tab) 0.4 mg SL UD PRN PRN Reason: Chest Pain Stop: 08/02/20 00:56 Ondansetron HCl (Ondansetron Inj 2 Mg/Ml 2 Ml Vial) 4 mg IV Q6H PRN PRN Reason: Nausea Stop: 08/02/20 00:56 Pantoprazole Sodium (Pantoprazole 40 Mg Tab) 40 mg PO DAILY [facility] Stop: 08/02/20 08:59 Last Admin: 07/06/20 07:32 Dose: 40 mg Documented by: Polyethylene Glycol (Polyethylene (Miralax) 17 Gm Pack) 17 gm PO DAILY PRN PRN Reason: Constipation Stop: 08/02/20 00:56 Last Admin: 07/06/20 07:32 Dose: 17 gm Documented by: Polyethylene Glycol (Polyethylene (Miralax) 17 Gm Pack) 17 gm PO DAILY PRN PRN Reason: Constipation Stop: 08/02/20 15:54 Rosuvastatin Calcium (Rosuvastatin Calcium 20 Mg Tab) 20 mg PO Q2D@0900 [facility] Stop: 08/02/20 08:59 Last Admin: 07/05/20 08:24 Dose: 20 mg Documented by: Sertraline HCl (Sertraline Hcl 50 Mg Tablet) [facility] Stop: 07/14/20 09:01 Last Admin: 07/06/20 07:32 Dose: 25 mg Documented by: Sertraline HCl (Sertraline Hcl 50 Mg Tablet) 50 mg PO [facility] Stop: 08/14/20 08:59 Vitamin B Complex (Vitamin B Complex Tab) 1 tab PO [facility] Stop: 08/02/20 08:59 Last Admin: 07/06/20 07:32 Dose: 1 tab Documented by: Vitamin D (Cholecalciferol 1,000 Units 25 Mcg Tab) 1,000 units PO [facility] Stop: 08/02/20 08:59 Last Admin: 07/06/20 07:32 Dose: 1,000 units Documented by: Warfarin Sodium (Warfarin Sod 5 Mg Tab) 5 mg PO DAILY@1600 [facility] Stop: 08/03/20 15:59 Last Admin: 07/05/20 15:09 Dose: 5 mg Documented by: (1) Fall Encounter type: initial encounter Qualified Code(s): W19.XXXA - Unspecified fall, initial encounter (2) Closed intertrochanteric fracture of right hip Encounter type: initial encounter Fracture alignment: displaced Qualified Code(s): S72.141A - Displaced intertrochanteric fracture of right femur, initial encounter for closed fracture
--- NOTE | 2020-07-06 14:57 | Cardiology Progress Note ---
Date of Service July 06, 2020 Assessment & Plan (1) Closed intertrochanteric fracture of right hip: (2) Atrial fibrillation: (3) Aortic valve replaced: Hemoglobin today 8.4, INR 1.5, goal 2-3. Continue unfractionated heparin. Continue Coumadin. Check INR tomorrow. Admission and Anticipated Discharge Date Admission Date: July 03, 2020 Subjective Patient seen and post operative follow-up given his history of permanent atrial fibrillation and mechanical aortic valve replacement. Heparin is infusing and he is tolerating it well. He notes he has not been making a great deal of progress at physical therapy, only able to shuffle minimally per his description. Physical Exam Physical Exam: Temp Pulse Resp BP Pulse Ox 36.3 C L 74 18 148/75 H 99 07/06/20 11:24 07/06/20 11:24 07/06/20 11:24 07/06/20 11:24 07/06/20 11:24 Constitutional: WD/WN, vitals as above Respiratory: normal respiratory effort, lungs clear to auscultation Cardiovascular: Rate/Rhythm: + irregularly irregular Vessels: no JVD Extremities: no edema Gastrointestinal (Abdomen): normal bowel sounds, soft, nontender, no hepatosplenomegaly Neurologic: PERRL, EOMI, accommodation nl, no face palsy, no dysarthria Results & Data ([facility]) Vital Signs (Past 12 Hours) Vital Signs Temp Pulse Pulse Resp BP BP Pulse Ox 07/06/20 11:24 36.3 C L 74 18 148/75 H 99 07/06/20 08:00 72 07/06/20 03:39 36.7 C 75 20 148/78 H 98 (1) Closed intertrochanteric fracture of right hip Encounter type: initial encounter Fracture alignment: displaced Qualified Code(s): S72.141A - Displaced intertrochanteric fracture of right femur, initial encounter for closed fracture
[2020-07-06] MEDS: WARFARIN SOD 5 MG TAB PO SCH (17:10)
[2020-07-06] MEDS: HEPARIN SODIUM/DEXTROSE 25,000 UNITS/500 ML BAG IV SCH (19:32)
[2020-07-06] MEDS: MELATONIN 3 MG TAB PO PRN (20:53)
[2020-07-07] MEDS: ACETAMINOPHEN 325 MG TAB PO PRN ×2 (06:19→20:52)
[2020-07-07 06:48] LABS: Hematocrit (blood only) 27.9 % (42-52); Hemoglobin 8.9 g/dL (14.0-18.0); Mean Corpuscular Hemoglobin 27.5 pg (25-34); Mean Corpuscular Hgb Conc 31.9 g/dL (32-36); Mean Corpuscular Volume 86.1 fL (80-100); Mean Platelet Volume 9.6 fL (7.4-10.4); Platelet Count 242 K/uL (130-400); RDW Coefficient of Variation 16.5 % (11.5-14.5); RDW Standard Deviation 52.7 fL (36.4-46.3); Red Blood Count 3.24 M/uL (4.7-6.1); White Blood Count 11.04 K/uL (4.8-10.8)
[2020-07-07 07:01] LABS: INR 1.6 (0.9-1.1); Partial Thromboplastin Ratio 1.9; Prothrombin Time 16.4 Seconds (9.0-12.0)
[2020-07-07 07:11] LABS: Partial Thromboplastin Time 53.5 Seconds (21.0-31.0)
[2020-07-07 07:14] LABS: BUN Creatinine Ratio 27.3 (10-20); Calcium 8.4 mg/dl (8.5-10.1); Creatinine Clr Calc Pharmacy 105.7 ml/min; Est GFR (African American) 113.5; Est GFR (Non-African American) 97.9; Potassium 3.9 mmol/L (3.5-5.1)
[2020-07-07] MEDS: METOPROLOL TARTRATE 25 MG TAB PO SCH (08:09)
[2020-07-07] MEDS: ROSUVASTATIN CALCIUM 20 MG TAB PO SCH (08:09)
[2020-07-07] MEDS: LORATADINE 10 MG TAB PO SCH (08:09)
[2020-07-07] MEDS: PANTOprazole 40 MG TAB PO SCH (08:09)
[2020-07-07] MEDS: GABAPENTIN 100 MG CAP PO SCH ×3 (08:09→20:11)
[2020-07-07] MEDS: ASPIRIN 81 MG ECTAB PO SCH (08:10)
[2020-07-07] MEDS: VITAMIN B COMPLEX TAB PO SCH (08:10)
[2020-07-07] MEDS: SERTRALINE HCL 50 MG TABLET PO SCH (08:10)
[2020-07-07] MEDS: CHOLECALCIFEROL 1,000 UNITS 25 MCG TAB PO SCH (08:10)
[2020-07-07] MEDS: ASCORBIC ACID 500 MG TAB PO SCH (08:10)
--- NOTE | 2020-07-07 08:19 | Progress Notes ---
DATE: 07/07/2020 SUBJECTIVE: An 85-year-old gentleman postop day 4 from IM nailing of a right intertrochanteric fracture. He is doing okay. Seems a little bit wiped out this morning. Pain seems to be controlled. Denies any chest pain or shortness of breath. OBJECTIVE: VITAL SIGNS: Temperature 37.1. Vital signs stable. GENERAL: Shows a pleasant elderly male. He is sitting up in his bedside chair, looks reasonably comfortable this morning. EXTREMITIES: Examination of the right hip and leg reveals the leg to be well aligned. Dressing is clean, dry and intact. Thigh is soft and supple. He is neurologically intact. LABORATORY DATA: Hemoglobin 8.9. Hematocrit 27.9. INR is 1.6. ASSESSMENT: An 85-year-old gentleman with multiple medical comorbidities postop day 4 from IM nailing of a right intertrochanteric fracture. INR is still a bit low. His pain seems to be controlled. PLAN: 1. DVT prophylaxis including thigh-high TEDs, SCDs, and Coumadin. We will try and get his Coumadin up more into a therapeutic range for his medical issues. 2. PT/OT. He can weightbear as tolerated to right lower extremity. 3. Pain control, seems to be doing okay with current pain regimen. 4. Disposition. He is orthopedically okay for discharge any time. I need to see him back 2-3 weeks out from his surgery date. Any orthopedic questions can be directed to me at [phone].
--- NOTE | 2020-07-07 08:21 | Hospitalist Progress Note ---
Date of Service July 07, 2020 Assessment & Plan (1) Closed intertrochanteric fracture of right hip: (2) Fall: (3) Right knee DJD: (4) Atrial fibrillation: (5) CAD (coronary artery disease): (6) Aortic valve replaced: (7) Mitral valve replaced: (8) S/P CABG x 5: ASSESSMENT AND PLAN: This is 85-year-old male who presents with mechanical fall and right hip fracture 1. Status post mechanical fall, right hip fracture. S/p R hip intramedullary Nail on 07/03/[address] Ashley Resume Post Op Care per Surgery Protocol Incentive Spirometry 10x per Hour Pain control. Restarted Warfarin 5 mg daily, IV Heparin started for bridging-No Bolus, Cards and Ortho following DVT prophylaxis including thigh-high TEDs, SCDs, and back on Coumadin. PT/OT. Pt can fully weightbear on the right lower extremity. Follow up with orthopedics, Dr. Ashley, in 2-3 weeks from surgery date. Post acute blood loss anemia Hgb down to 8.9, initially Hgb about 12, relatively stable for past couple of days, cont. to monitor, no need for blood transfusion at this time 2. History of CAD /p coronary artery bypass graft, history of ischemic cardiomyopathy, history of chronic intraventricular conduction delay, history of ectasia of ascending aorta on aspirin, statin and metoprolol. 3. History of rheumatic aortic valve disease, status post mechanical aortic valve, on chronic Coumadin. 4. Atrial fibrillation, rate controlled. Continue metoprolol. Warfarin restarted 5. Hyperlipidemia. On statin. 6. Hypertension. Continue home medication of metoprolol and resume Lisinopril. 7. Generalized anxiety. Continue Zoloft. 8. Gastroesophageal reflux disease. Continue omeprazole. 9. DT prophylaxis, On IV heparin bridge Coumadin was restarted. Disposition: PT/OT [facility] [place] on DC Admission and Anticipated Discharge Date Admission Date: July 03, 2020 Subjective Pt is sitting up in chair in NAD. Says he worked with PT, does not feel he is able to do much d/t his R hip. No fever, chills, chest pain, shortness of breath. INR 1.6 Review of Systems Review of Systems: All systems reviewed & are unremarkable except as noted in HPI & below Constitutional: no fever and no chills Respiratory: no cough and no dyspnea Cardiovascular: no chest pain and no palpitations Gastrointestinal: no abdominal pain, no nausea and no vomiting Physical Exam Physical Exam: Gen- elderly male sitting up in chair, AAO x 3, answering questions appropriately, NAD, Afebrile, MS back to baseline Head- NCAT, EOMI, Anicteric Sclera Neck- Supple, No JVD Lungs- Clear to Auscultation Bilaterally, No Rales, No Rhonchi, No Wheezing Chest- irregularly irregular, + crisp click sound, No Murmurs Abdomen- Soft, Bowel Sounds Present, Non Tender, Non Distended, No Rigidity, No Guarding Musculoskeletal- FROM x 3, No CVAT Extremities- No Cyanosis, No Clubbing, No Edema Neuro- alert and oriented, answering questions appropriately,speech fluent, no facial asymmetry, moves extremities spontaneously Psych- Normal Mood Results & Data Results & Data ([facility]) Vital Signs (Past 12 Hours) Vital Signs Temp Pulse Pulse Resp BP Pulse Ox 07/07/20 07:20 37.1 C 71 18 145/84 H 100 07/07/20 03:18 72 07/07/20 03:00 36.7 C 70 20 135/61 98 07/06/20 23:00 36.8 C 80 16 154/83 H 98 Laboratory Results 07/07/20 07/07/20 07/07/20 Range/Units 06:31 06:31 06:31 WBC 11.04 H (4.8-10.8) K/uL RBC 3.24 L (4.7-6.1) M/uL Hgb 8.9 L (14.0-18.0) g/dL Hct 27.9 L (42-52) % MCV 86.1 (80-100) fL MCH 27.5 (25-34) pg MCHC 31.9 L (32-36) g/dL RDW Std Deviation 52.7 H (36.4-46.3) fL RDW Coeff of Miller 16.5 H (11.5-14.5) % Plt Count 242 (130-400) K/uL MPV 9.6 (7.4-10.4) fL PT 16.4 H (9.0-12.0) Seconds INR 1.6 H (0.9-1.1) APTT 53.5 H* (21.0-31.0) Seconds PTT Ratio 1.9 Sodium 131 L (136-145) mmol/L Potassium 3.9 (3.5-5.1) mmol/L Chloride 98 (98-107) mmol/L Carbon Dioxide 27 (21-32) mmol/L Anion Gap 6.0 (3-11) BUN 14 (7-18) mg/dl Creatinine 0.52 L (0.6-1.4) mg/dl Est Cr Clr Drug Dosing 105.7 ml/min Est GFR ( Amer) 113.5 Est GFR (Non-Af Amer) 97.9 BUN/Creatinine Ratio 27.3 H (10-20) Glucose 106 H (70-99) mg/dl Calcium 8.4 L (8.5-10.1) mg/dl 07/06/20 Range/Units 05:31 WBC (4.8-10.8) K/uL RBC (4.7-6.1) M/uL Hgb (14.0-18.0) g/dL Hct (42-52) % MCV (80-100) fL MCH (25-34) pg MCHC (32-36) g/dL RDW Std Deviation (36.4-46.3) fL RDW Coeff of Miller (11.5-14.5) % Plt Count (130-400) K/uL MPV (7.4-10.4) fL PT 15.2 H (9.0-12.0) Seconds INR 1.5 H (0.9-1.1) APTT (21.0-31.0) Seconds PTT Ratio Sodium (136-145) mmol/L Potassium (3.5-5.1) mmol/L Chloride (98-107) mmol/L Carbon Dioxide (21-32) mmol/L Anion Gap (3-11) BUN (7-18) mg/dl Creatinine (0.6-1.4) mg/dl Est Cr Clr Drug Dosing ml/min Est GFR ( Amer) Est GFR (Non-Af Amer) BUN/Creatinine Ratio (10-20) Glucose (70-99) mg/dl Calcium (8.5-10.1) mg/dl Medications Administered Current Inpatient Medications Acetaminophen (Acetaminophen 325 Mg Tab) 650 mg PO Q4H PRN PRN Reason: Pain or Fever Stop: 08/02/20 00:56 Last Admin: 07/07/20 06:19 Dose: 650 mg Documented by: Ascorbic Acid (Ascorbic Acid 500 Mg Tab) [address] [facility] Stop: 08/02/20 08:59 Last Admin: 07/07/20 08:10 Dose: 500 mg Documented by: Aspirin (Aspirin 81 Mg Ectab) [address] [facility] Stop: 08/02/20 08:59 Last Admin: 07/07/20 08:10 Dose: 81 mg Documented by: Gabapentin (Gabapentin 100 Mg Cap) 100 mg PO TID [facility] Stop: 08/02/20 08:59 Last Admin: 07/07/20 08:09 Dose: 100 mg Documented by: Hydralazine HCl (Hydralazine Hcl 20 Mg/Ml Vial) 5 mg IV Q6H PRN PRN Reason: Hypertension Stop: 08/02/20 00:56 Hydromorphone HCl (Hydromorphone Inj 0.5 Mg/0.5 Ml Syr) 0.5 mg IV Q4H PRN PRN Reason: Pain Stop: 07/17/20 00:56 Last Admin: 07/06/20 10:30 Dose: 0.5 mg Documented by: Heparin Sodium/Dextrose (Heparin Sodium/Dextrose) 25,000 units in 500 mls @ 19 mls/hr IV .Q24H [facility]; Protocol Stop: 08/03/20 14:29 Last Titration: 07/07/20 07:38 Dose: 950 units/hr, 19 mls/hr Documented by: Loratadine (Loratadine 10 Mg Tab) [address] [facility] Stop: 08/02/20 08:59 Last Admin: 07/07/20 08:09 Dose: 10 mg Documented by: Melatonin (Melatonin 3 Mg Tab) 3 mg PO HS PRN PRN Reason: Sleep Stop: 08/03/20 22:34 Last Admin: 07/06/20 20:53 Dose: 3 mg Documented by: Metoprolol Tartrate (Metoprolol Tartrate 25 Mg Tab) [address] [facility] Stop: 08/02/20 08:59 Last Admin: 07/07/20 08:09 Dose: 25 mg Documented by: Naloxone HCl (Naloxone Hcl 0.4 Mg/1 Ml Vial/Carp) 0.1 mg IV UD PRN PRN Reason: Opioid Overdose Stop: 08/02/20 15:54 Nitroglycerin (Nitroglycerin Sl 0.4 Mg/Tab Tab) 0.4 mg SL UD PRN PRN Reason: Chest Pain Stop: 08/02/20 00:56 Ondansetron HCl (Ondansetron Inj 2 Mg/Ml 2 Ml Vial) 4 mg IV Q6H PRN PRN Reason: Nausea Stop: 08/02/20 00:56 Pantoprazole Sodium (Pantoprazole 40 Mg Tab) 40 mg PO DAILY [facility] Stop: 08/02/20 08:59 Last Admin: 07/07/20 08:09 Dose: 40 mg Documented by: Polyethylene Glycol (Polyethylene (Miralax) 17 Gm Pack) 17 gm PO DAILY PRN PRN Reason: Constipation Stop: 08/02/20 00:56 Last Admin: 07/06/20 07:32 Dose: 17 gm Documented by: Polyethylene Glycol (Polyethylene (Miralax) 17 Gm Pack) 17 gm PO DAILY PRN PRN Reason: Constipation Stop: 08/02/20 15:54 Rosuvastatin Calcium (Rosuvastatin Calcium 20 Mg Tab) 20 mg PO Q2D@0900 [facility] Stop: 08/02/20 08:59 Last Admin: 07/07/20 08:09 Dose: 20 mg Documented by: Sertraline HCl (Sertraline Hcl 50 Mg Tablet) [facility] Stop: 07/14/20 09:01 Last Admin: 07/07/20 08:10 Dose: 25 mg Documented by: Sertraline HCl (Sertraline Hcl 50 Mg Tablet) [address] [facility] Stop: 08/14/20 08:59 Vitamin B Complex (Vitamin B Complex Tab) 1 [facility] Stop: 08/02/20 08:59 Last Admin: 07/07/20 08:10 Dose: 1 tab Documented by: Vitamin D (Cholecalciferol 1,000 Units 25 Mcg Tab) 1,000 units [facility] Stop: 08/02/20 08:59 Last Admin: 07/07/20 08:10 Dose: 1,000 units Documented by: Warfarin Sodium (Warfarin Sod 5 Mg Tab) 5 mg PO DAILY@1600 [facility] Stop: 08/03/20 15:59 Last Admin: 07/06/20 17:10 Dose: 5 mg Documented by: (1) Fall Encounter type: initial encounter Qualified Code(s): W19.XXXA - Unspecified fall, initial encounter (2) Closed intertrochanteric fracture of right hip Encounter type: initial encounter Fracture alignment: displaced Qualified Code(s): S72.141A - Displaced intertrochanteric fracture of right femur, initial encounter for closed fracture
[2020-07-07] MEDS ORDERED: Nursing to Pharmacy Communication SCH (14:15)
[2020-07-07] MEDS: WARFARIN SOD 5 MG TAB PO SCH (15:30)
[2020-07-07] MEDS ORDERED: bisacodyL 10 MG SUPP PR PRN (17:39)
--- NOTE | 2020-07-07 18:12 | Cardiology Progress Note ---
Date of Service July 07, 2020 Assessment & Plan (1) Chronic atrial fibrillation: (2) Aortic valve replaced: Hgb 8.9, stable INR 1.6 mechanical AVR placed in 2002. Goal INR 2.5-3.5, however I think we can stop heparin gtt when INR is > or = to 2 Admission and Anticipated Discharge Date Admission Date: July 03, 2020 Subjective Patient resting comfortably, rate controlled AF on cardiac catheterization technician. Physical Exam Physical Exam: Temp Pulse Resp BP Pulse Ox 36.3 C L 61 18 127/69 100 07/07/20 15:12 07/07/20 15:12 07/07/20 15:12 07/07/20 15:12 07/07/20 15:12 Constitutional: WD/WN, vitals as above Respiratory: normal respiratory effort, lungs clear to auscultation Cardiovascular: Rate/Rhythm: + irregularly irregular prosthetic heart sound noted, no edema Neurologic: no focla defiticts Results & Data ([facility]) Vital Signs (Past 12 Hours) Vital Signs Temp Pulse Pulse Resp BP Pulse Ox 07/07/20 15:12 36.3 C L 61 18 127/69 100 07/07/20 15:06 69 07/07/20 11:52 36.4 C L 69 18 123/73 98 07/07/20 08:00 78 07/07/20 07:20 37.1 C 71 18 145/84 H 100
[2020-07-07] MEDS: SENNA 8.6 MG TAB PO SCH (20:52)
[2020-07-07] MEDS: POLYETHYLENE (MIRALAX) 17 GM PACK PO SCH ×2 (20:52→20:56)
[2020-07-07] MEDS: HEPARIN SODIUM/DEXTROSE 25,000 UNITS/500 ML BAG IV SCH (23:08)
[2020-07-08 05:47] LABS: Hematocrit (blood only) 25.2 % (42-52); Hemoglobin 8.3 g/dL (14.0-18.0)
[2020-07-08 06:06] LABS: INR 1.8 (0.9-1.1); Partial Thromboplastin Ratio 2.1; Prothrombin Time 18.4 Seconds (9.0-12.0)
[2020-07-08 06:20] LABS: Partial Thromboplastin Time 58.7 Seconds (21.0-31.0)
--- NOTE | 2020-07-08 07:43 | Hospitalist Progress Note ---
Date of Service July 08, 2020 Assessment & Plan (1) Closed intertrochanteric fracture of right hip: (2) Fall: (3) Right knee DJD: (4) Atrial fibrillation: (5) CAD (coronary artery disease): (6) Aortic valve replaced: (7) Mitral valve replaced: (8) S/P CABG x 5: ASSESSMENT AND PLAN: This is 85-year-old male who presents with mechanical fall and right hip fracture 1. Status post mechanical fall, right hip fracture. S/p R hip intramedullary Nail on 07/03/[address] Ashley Resume Post Op Care per Surgery Protocol Incentive Spirometry 10x per Hour Pain control. Restarted Warfarin 5 mg daily, IV Heparin started for bridging-No Bolus, Cards and Ortho following At home on warfarin 5 mg MWF and 7.5 mg on other days, goal INR 2.5-3.5. Plan to stop heparin when INR 2 DVT prophylaxis including thigh-high TEDs, SCDs, and back on Coumadin. PT/OT. Pt can fully weightbear on the right lower extremity. Follow up with orthopedics, Dr. Ashley, in 2-3 weeks from surgery date. Post acute blood loss anemia Hgb down to 8.3, initially Hgb about 12, relatively stable for past couple of days, cont. to monitor, no need for blood transfusion at this time 2. History of CAD /p coronary artery bypass graft, history of ischemic cardiomyopathy, history of chronic intraventricular conduction delay, history of ectasia of ascending aorta on aspirin, statin and metoprolol. 3. History of rheumatic aortic valve disease, status post mechanical aortic valve, on chronic Coumadin. 4. Atrial fibrillation, rate controlled. Continue metoprolol. Warfarin restarted 5. Hyperlipidemia. On statin. 6. Hypertension. Continue home medication of metoprolol and resume Lisinopril. 7. Generalized anxiety. Continue Zoloft. 8. Gastroesophageal reflux disease. Continue omeprazole. 9. DT prophylaxis, On IV heparin bridge Coumadin was restarted. Disposition: PT/OT [facility] on DC Admission and Anticipated Discharge Date Admission Date: July 03, 2020 Subjective Pt is sitting up in chair in NAD. On IV heparin, INR subtherapeutic. No fever, chills, chest pain, shortness of breath. Review of Systems Review of Systems: All systems reviewed & are unremarkable except as noted in HPI & below Constitutional: no fever and no chills Respiratory: no cough and no dyspnea Cardiovascular: no chest pain and no palpitations Gastrointestinal: no abdominal pain, no nausea and no vomiting Physical Exam Physical Exam: Gen- elderly male sitting up in chair, AAO x 3, answering questions appropriately, NAD, Afebrile, MS back to baseline Head- NCAT, EOMI, Anicteric Sclera Neck- Supple, No JVD Lungs- somewhat diminished breath sounds, no wheezing rhonchi, crackles Chest- irregularly irregular, + crisp click sound, No Murmurs Abdomen- Soft, Bowel Sounds Present, Non Tender, Non Distended, No Rigidity, No Guarding Musculoskeletal- FROM x 3, No CVAT Extremities- No Cyanosis, No Clubbing, No Edema Neuro- alert and oriented, answering questions appropriately,speech fluent, no facial asymmetry, moves extremities spontaneously Psych- Normal Mood Results & Data Results & Data ([facility]) Vital Signs (Past 12 Hours) Vital Signs Temp Pulse Pulse Resp BP Pulse Ox 07/08/20 04:20 36.5 C 75 18 131/74 98 07/07/20 22:20 69 07/07/20 22:00 36.6 C 49 L 18 119/69 99 Laboratory Results 07/08/20 07/08/20 Range/Units 05:19 05:19 Hgb 8.3 L (14.0-18.0) g/dL Hct 25.2 L (42-52) % PT 18.4 H (9.0-12.0) Seconds INR 1.8 H (0.9-1.1) APTT 58.7 H* (21.0-31.0) Seconds PTT Ratio 2.1 Medications Administered Current Inpatient Medications Acetaminophen (Acetaminophen 325 Mg Tab) 650 mg PO Q4H PRN PRN Reason: Pain or Fever Stop: 08/02/20 00:56 Last Admin: 07/07/20 20:52 Dose: 650 mg Documented by: Ascorbic Acid (Ascorbic Acid 500 Mg Tab) 500 mg PO [facility] Stop: 08/02/20 08:59 Last Admin: 07/07/20 08:10 Dose: 500 mg Documented by: Aspirin (Aspirin 81 Mg Ectab) 81 mg PO [facility] Stop: 08/02/20 08:59 Last Admin: 07/07/20 08:10 Dose: 81 mg Documented by: Bisacodyl (Bisacodyl 10 Mg Supp) [address] HS PRN PRN Reason: Constipation Stop: 08/06/20 17:38 Gabapentin (Gabapentin 100 Mg Cap) 100 mg PO TID [facility] Stop: 08/02/20 08:59 Last Admin: 07/07/20 20:11 Dose: 100 mg Documented by: Hydralazine HCl (Hydralazine Hcl 20 Mg/Ml Vial) 5 mg IV Q6H PRN PRN Reason: Hypertension Stop: 08/02/20 00:56 Hydromorphone HCl (Hydromorphone Inj 0.5 Mg/0.5 Ml Syr) 0.5 mg IV Q4H PRN PRN Reason: Pain Stop: 07/17/20 00:56 Last Admin: 07/06/20 10:30 Dose: 0.5 mg Documented by: Heparin Sodium/Dextrose (Heparin Sodium/Dextrose) 25,000 units in 500 mls @ 19 mls/hr IV .Q24H [facility]; Protocol Stop: 08/03/20 14:29 Last Admin: 07/07/20 23:08 Dose: 950 units/hr, 19 mls/hr Documented by: Loratadine (Loratadine 10 Mg Tab) 10 mg PO QAM [facility] Stop: 08/02/20 08:59 Last Admin: 07/07/20 08:09 Dose: 10 mg Documented by: Melatonin (Melatonin 3 Mg Tab) 3 mg PO HS PRN PRN Reason: Sleep Stop: 08/03/20 22:34 Last Admin: 07/06/20 20:53 Dose: 3 mg Documented by: Metoprolol Tartrate (Metoprolol Tartrate 25 Mg Tab) 25 mg PO QAM [facility] Stop: 08/02/20 08:59 Last Admin: 07/07/20 08:09 Dose: 25 mg Documented by: Naloxone HCl (Naloxone Hcl 0.4 Mg/1 Ml Vial/Carp) 0.1 mg IV UD PRN PRN Reason: Opioid Overdose Stop: 08/02/20 15:54 Nitroglycerin (Nitroglycerin Sl 0.4 Mg/Tab Tab) 0.4 mg SL UD PRN PRN Reason: Chest Pain Stop: 08/02/20 00:56 Ondansetron HCl (Ondansetron Inj 2 Mg/Ml 2 Ml Vial) 4 mg IV Q6H PRN PRN Reason: Nausea Stop: 08/02/20 00:56 Pantoprazole Sodium (Pantoprazole 40 Mg Tab) 40 mg PO DAILY [facility] Stop: 08/02/20 08:59 Last Admin: 07/07/20 08:09 Dose: 40 mg Documented by: Polyethylene Glycol (Polyethylene (Miralax) 17 Gm Pack) 17 gm PO DAILY PRN PRN Reason: Constipation Stop: 08/02/20 15:54 Polyethylene Glycol (Polyethylene (Miralax) 17 Gm Pack) 17 gm PO BID [facility] Stop: 08/06/20 20:59 Last Admin: 07/07/20 20:56 Dose: Not Given Documented by: Rosuvastatin Calcium (Rosuvastatin Calcium 20 Mg Tab) 20 mg PO Q2D@0900 [facility] Stop: 08/02/20 08:59 Last Admin: 07/07/20 08:09 Dose: 20 mg Documented by: Sennosides (Senna 8.6 Mg Tab) 8.6 mg PO BID [facility] Stop: 08/06/20 20:59 Last Admin: 07/07/20 20:52 Dose: 8.6 mg Documented by: Sertraline HCl (S[facility]raline Hcl 50 Mg Tablet) [facility] Stop: 07/14/20 09:01 Last Admin: 07/07/20 08:10 Dose: 25 mg Documented by: Sertraline HCl (Sertraline Hcl 50 Mg Tablet) [facility] [place]: 08/14/20 08:59 Vitamin B Complex (Vitamin B Complex Tab) 1 tab PO [facility] Stop: 08/02/20 08:59 Last Admin: 07/07/20 08:10 Dose: 1 tab Documented by: Vitamin D (Cholecalciferol 1,000 Units 25 Mcg Tab) 1,000 [facility] [place]: 08/02/20 08:59 Last Admin: 07/07/20 08:10 Dose: 1,000 units Documented by: Warfarin Sodium (Warfarin Sod 5 Mg Tab) 5 mg PO DAILY@1600 [facility] Stop: 08/03/20 15:59 Last Admin: 07/07/20 15:30 Dose: 5 mg Documented by: (1) Closed intertrochanteric fracture of right hip Encounter type: initial encounter Fracture alignment: displaced Qualified Code(s): S72.141A - Displaced intertrochanteric fracture of right femur, initial encounter for closed fracture (2) Fall Encounter type: initial encounter Qualified Code(s): W19.XXXA - Unspecified fall, initial encounter
[2020-07-08] MEDS: GABAPENTIN 100 MG CAP PO SCH ×3 (07:56→19:19)
[2020-07-08] MEDS: POLYETHYLENE (MIRALAX) 17 GM PACK PO SCH ×2 (07:57→19:18)
[2020-07-08] MEDS: METOPROLOL TARTRATE 25 MG TAB PO SCH (07:57)
[2020-07-08] MEDS: LORATADINE 10 MG TAB PO SCH (07:57)
[2020-07-08] MEDS: PANTOprazole 40 MG TAB PO SCH (07:57)
[2020-07-08] MEDS: ASPIRIN 81 MG ECTAB PO SCH (07:58)
[2020-07-08] MEDS: ASCORBIC ACID 500 MG TAB PO SCH (07:58)
[2020-07-08] MEDS: VITAMIN B COMPLEX TAB PO SCH (07:58)
[2020-07-08] MEDS: CHOLECALCIFEROL 1,000 UNITS 25 MCG TAB PO SCH (07:58)
[2020-07-08] MEDS: SERTRALINE HCL 50 MG TABLET PO SCH (07:59)
[2020-07-08] MEDS: SENNA 8.6 MG TAB PO SCH ×2 (08:04→19:19)
--- NOTE | 2020-07-08 12:19 | Cardiology Progress Note ---
Date of Service July 08, 2020 Assessment & Plan (1) Chronic atrial fibrillation: Hemoglobin 8.3, INR 1.8. Continue heparin to Coumadin. Home dose of Coumadin is 5 mg alternating with 7.5 mg. Will administer 7.5 mg today. Given valve replacement in 2002, recommend goal INR of 2.5-3.5. I think however it will be reasonable to discontinue the heparin once he reaches an INR of at least 2. (2) Aortic valve replaced: Admission and Anticipated Discharge Date Admission Date: July 03, 2020 Subjective No complaints. Telemetry reveals rate controlled atrial fibrillation in the 60s. Physical Exam Physical Exam: Temp Pulse Resp BP Pulse Ox 36.2 C L 67 18 112/69 95 07/08/20 12:00 07/08/20 12:00 07/08/20 12:00 07/08/20 12:00 07/08/20 12:00 Respiratory: normal respiratory effort, lungs clear to auscultation Cardiovascular: Rate/Rhythm: + irregularly irregular Heart Sounds: no murmur Neurologic: PERRL, EOMI, accommodation nl, no face palsy, no dysarthria Results & Data ([facility]) Vital Signs (Past 12 Hours) Vital Signs Temp Pulse Resp BP BP Pulse Ox 07/08/20 12:00 36.2 C L 67 18 112/69 95 07/08/20 08:17 36.8 C 97 H 18 170/84 H 150/68 H 97 07/08/20 04:20 36.5 C 75 18 131/74 98
[2020-07-08] MEDS ORDERED: WARFARIN SOD 7.5 MG TAB PO SCH (16:00)
[2020-07-08] MEDS: ACETAMINOPHEN 325 MG TAB PO PRN (19:17)
[2020-07-09] MEDS: ACETAMINOPHEN 325 MG TAB PO PRN ×3 (00:20→20:24)
[2020-07-09] MEDS: HEPARIN SODIUM/DEXTROSE 25,000 UNITS/500 ML BAG IV SCH (00:20)
[2020-07-09 06:28] LABS: Hematocrit (blood only) 24.4 % (42-52); Hemoglobin 8.1 g/dL (14.0-18.0)
[2020-07-09 06:55] LABS: INR 1.6 (0.9-1.1); Partial Thromboplastin Ratio 1.9; Prothrombin Time 16.9 Seconds (9.0-12.0)
[2020-07-09 07:08] LABS: Partial Thromboplastin Time 53.5 Seconds (21.0-31.0)
[2020-07-09] MEDS: LORATADINE 10 MG TAB PO SCH (07:59)
[2020-07-09] MEDS: SENNA 8.6 MG TAB PO SCH ×2 (07:59→21:56)
[2020-07-09] MEDS: PANTOprazole 40 MG TAB PO SCH (07:59)
[2020-07-09] MEDS: METOPROLOL TARTRATE 25 MG TAB PO SCH (07:59)
[2020-07-09] MEDS: CHOLECALCIFEROL 1,000 UNITS 25 MCG TAB PO SCH (07:59)
[2020-07-09] MEDS: GABAPENTIN 100 MG CAP PO SCH ×3 (07:59→20:24)
[2020-07-09] MEDS: ASCORBIC ACID 500 MG TAB PO SCH (07:59)
[2020-07-09] MEDS: VITAMIN B COMPLEX TAB PO SCH (08:00)
[2020-07-09] MEDS: POLYETHYLENE (MIRALAX) 17 GM PACK PO SCH ×2 (08:00→21:56)
[2020-07-09] MEDS: ASPIRIN 81 MG ECTAB PO SCH (08:00)
[2020-07-09] MEDS: ROSUVASTATIN CALCIUM 20 MG TAB PO SCH (08:00)
[2020-07-09] MEDS: SERTRALINE HCL 50 MG TABLET PO SCH (08:00)
--- NOTE | 2020-07-09 08:26 | Hospitalist Progress Note ---
Date of Service July 09, 2020 Assessment & Plan (1) Closed intertrochanteric fracture of right hip: (2) Fall: (3) Right knee DJD: (4) Atrial fibrillation: (5) CAD (coronary artery disease): (6) Aortic valve replaced: (7) Mitral valve replaced: (8) S/P CABG x 5: ASSESSMENT AND PLAN: This is 85-year-old male who presents with mechanical fall and right hip fracture 1. Status post mechanical fall, right hip fracture. S/p R hip intramedullary Nail on 07/03/[address] Ashley Resume Post Op Care per Surgery Protocol Incentive Spirometry 10x per Hour Pain control. Restarted Warfarin IV Heparin started for bridging-No Bolus, Cards and Ortho following At home on warfarin 5 mg MWF and 7.5 mg on other days, goal INR 2.5-3.5. Plan to stop heparin when INR 2 DVT prophylaxis including thigh-high TEDs, SCDs, and back on Coumadin. PT/OT. Pt can fully weightbear on the right lower extremity. Follow up with orthopedics, Dr. Ashley, in 2-3 weeks from surgery date. Post acute blood loss anemia Hgb down to~ 8, initially Hgb about 12, relatively stable for past couple of days, cont. to monitor, no need for blood transfusion at this time 2. History of CAD /p coronary artery bypass graft, history of ischemic cardiomyopathy, history of chronic intraventricular conduction delay, history of ectasia of ascending aorta on aspirin, statin and metoprolol. 3. History of rheumatic aortic valve disease, status post mechanical aortic valve, on chronic Coumadin. 4. Atrial fibrillation, rate controlled. Continue metoprolol. Warfarin restarted 5. Hyperlipidemia. On statin. 6. Hypertension. Continue home medication of metoprolol and resume Lisinopril. 7. Generalized anxiety. Continue Zoloft. 8. GERD. Continue omeprazole. 9. DVT prophylaxis, On IV heparin bridge Coumadin was restarted. Disposition: PT/OT [facility] on DC Admission and Anticipated Discharge Date Admission Date: July 03, 2020 Subjective Pt is sitting up in chair in NAD, eating lunch. Reports right hip feels better and that he was able to ambulate into hallway. INR subtherapeutic at 1.6. received 7.5 mg warfarin yesterday. Hgb 8.1 No chest pain, shortness of breath, abd. pain, n/v. Review of Systems Review of Systems: All systems reviewed & are unremarkable except as noted in HPI & below Constitutional: no fever and no chills Respiratory: no cough and no dyspnea Cardiovascular: no chest pain and no palpitations Gastrointestinal: no abdominal pain, no nausea and no vomiting Physical Exam Physical Exam: Gen- elderly male sitting up in chair, AAO x 3, answering questions appropriately, NAD Head- NCAT, EOMI, Anicteric Sclera Neck- Supple, No JVD Lungs- somewhat diminished breath sounds, no wheezing rhonchi, crackles Chest- irregularly irregular, + crisp mechanical sound, No Murmurs Abdomen- Soft, Bowel Sounds Present, Non Tender, Non Distended, No Rigidity, No Guarding Extremities- moves extremities spontaneously, some R thigh edema, post-op dressings intact Neuro- alert and oriented, answering questions appropriately,speech fluent, no facial asymmetry, moves extremities spontaneously Psych- Normal Mood Results & Data Results & Data ([facility]) Vital Signs (Past 12 Hours) Vital Signs Temp Pulse Resp BP Pulse Ox 07/09/20 08:13 37 C 68 20 142/77 H 99 07/09/20 02:48 36.8 C 76 16 144/81 H 99 07/08/20 23:00 36.6 C 87 20 149/83 H 99 Laboratory Results 07/09/20 07/09/20 07/08/20 Range/Units 05:53 05:53 Unknown Hgb 8.1 L (14.0-18.0) g/dL Hct 24.4 L (42-52) % PT 16.9 H (9.0-12.0) Seconds INR 1.6 H (0.9-1.1) APTT 53.5 H* (21.0-31.0) Seconds PTT Ratio 1.9 COVID-19 Eval Order SARS-CoV-2, RNA, NAAT NEGATIVE (NEGATIVE) 07/08/20 Range/Units Unknown Hgb (14.0-18.0) g/dL Hct (42-52) % PT (9.0-12.0) Seconds INR (0.9-1.1) APTT (21.0-31.0) Seconds PTT Ratio COVID-19 Eval [facility] SARS-CoV-2, RNA, NAAT (NEGATIVE) Medications Administered Current Inpatient Medications Acetaminophen (Acetaminophen 325 Mg Tab) 650 mg PO Q4H PRN PRN Reason: Pain or Fever Stop: 08/02/20 00:56 Last Admin: 07/09/20 06:13 Dose: 650 mg Documented by: Ascorbic Acid (Ascorbic Acid 500 Mg Tab) 500 mg PO QAM [facility] Stop: 08/02/20 08:59 Last Admin: 07/09/20 07:59 Dose: 500 mg Documented by: Aspirin (Aspirin 81 Mg Ectab) 81 mg PO QAM [facility] Stop: 08/02/20 08:59 Last Admin: 07/09/20 08:00 Dose: 81 mg Documented by: Bisacodyl (Bisacodyl 10 Mg Supp) 10 mg [place] HS PRN PRN Reason: Constipation Stop: 08/06/20 17:38 Gabapentin (Gabapentin 100 Mg Cap) 100 mg PO TID [facility] Stop: 08/02/20 08:59 Last Admin: 07/09/20 07:59 Dose: 100 mg Documented by: Hydralazine HCl (Hydralazine Hcl 20 Mg/Ml Vial) 5 mg IV Q6H PRN PRN Reason: Hypertension Stop: 08/02/20 00:56 Hydromorphone HCl (Hydromorphone Inj 0.5 Mg/0.5 Ml Syr) 0.5 mg IV Q4H PRN PRN Reason: Pain Stop: 07/17/20 00:56 Last Admin: 07/06/20 10:30 Dose: 0.5 mg Documented by: Heparin Sodium/Dextrose (Heparin Sodium/Dextrose) 25,000 units in 500 mls @ 19 mls/hr IV .Q24H [facility]; Protocol Stop: 08/03/20 14:29 Last Titration: 07/09/20 07:09 Dose: 950 units/hr, 19 mls/hr Documented by: Loratadine (Loratadine 10 Mg Tab) 10 mg PO QAM [facility] Stop: 08/02/20 08:59 Last Admin: 07/09/20 07:59 Dose: 10 mg Documented by: Melatonin (Melatonin 3 Mg Tab) 3 mg PO HS PRN PRN Reason: Sleep Stop: 08/03/20 22:34 Last Admin: 07/06/20 20:53 Dose: 3 mg Documented by: Metoprolol Tartrate (Metoprolol Tartrate 25 Mg Tab) 25 mg PO QAM [facility] Stop: 08/02/20 08:59 Last Admin: 07/09/20 07:59 Dose: 25 mg Documented by: Naloxone HCl (Naloxone Hcl 0.4 Mg/1 Ml Vial/Carp) 0.1 mg IV UD PRN PRN Reason: Opioid Overdose Stop: 08/02/20 15:54 Nitroglycerin (Nitroglycerin Sl 0.4 Mg/Tab Tab) 0.4 mg SL UD PRN PRN Reason: Chest Pain Stop: 08/02/20 00:56 Ondansetron HCl (Ondansetron Inj 2 Mg/Ml 2 Ml Vial) 4 mg IV Q6H PRN PRN Reason: Nausea Stop: 08/02/20 00:56 Pantoprazole Sodium (Pantoprazole 40 Mg Tab) 40 mg PO DAILY [facility] Stop: 08/02/20 08:59 Last Admin: 07/09/20 07:59 Dose: 40 mg Documented by: Polyethylene Glycol (Polyethylene (Miralax) 17 Gm Pack) 17 gm PO DAILY PRN PRN Reason: Constipation Stop: 08/02/20 15:54 Polyethylene Glycol (Polyethylene (Miralax) 17 Gm Pack) 17 gm PO BID [facility] Stop: 08/06/20 20:59 Last Admin: 07/09/20 08:00 Dose: 17 gm Documented by: Rosuvastatin Calcium (Rosuvastatin Calcium 20 Mg Tab) 20 mg PO Q2D@0900 [facility] Stop: 08/02/20 08:59 Last Admin: 07/09/20 08:00 Dose: 20 mg Documented by: Sennosides (Senna 8.6 Mg Tab) 8.6 mg PO BID [facility] Stop: 08/06/20 20:59 Last Admin: 07/09/20 07:59 Dose: 8.6 mg Documented by: Sertraline HCl (Sertraline Hcl 50 Mg Tablet) [facility] Stop: 07/14/20 09:01 Last Admin: 07/09/20 08:00 Dose: 25 mg Documented by: Sertraline HCl (Sertraline Hcl 50 Mg Tablet) 50 mg [facility] Stop: 08/14/20 08:59 Vitamin B Complex (Vitamin B Complex Tab) 1 tab [facility] Stop: 08/02/20 08:59 Last Admin: 07/09/20 08:00 Dose: 1 tab Documented by: Vitamin D (Cholecalciferol 1,000 Units 25 Mcg Tab) 1,000 units PO QAM [facility] Stop: 08/02/20 08:59 Last Admin: 07/09/20 07:59 Dose: 1,000 units Documented by: Warfarin Sodium (Warfarin Sod 7.5 Mg Tab) 7.5 mg PO DAILY@1600 [facility] Stop: 08/07/20 15:59 Last Admin: 07/08/20 19:17 Dose: 7.5 mg Documented by: (1) Closed intertrochanteric fracture of right hip Encounter type: initial encounter Fracture alignment: displaced Qualified Code(s): S72.141A - Displaced intertrochanteric fracture of right femur, initial encounter for closed fracture (2) Fall Encounter type: initial encounter Qualified Code(s): W19.XXXA - Unspecified fall, initial encounter
--- NOTE | 2020-07-09 08:56 | Progress Notes ---
DATE: 07/09/2020 SUBJECTIVE: An 85-year-old gentleman now 6 days out from IM nailing of a right intertrochanteric fracture. He is doing okay. Still moderate amount of pain. Feels just kind of wiped out. No new complaints. OBJECTIVE: VITAL SIGNS: Temperature 37.0. Vital signs stable. GENERAL: Shows a pleasant elderly male. He is sitting up in bed and looks reasonably comfortable. He is awake, alert and oriented. EXTREMITIES: Examination of the right leg reveals the dressing to be clean, dry and intact. Some moderate swelling. He can dorsiflex and plantarflex his foot appropriately. LABORATORY DATA: Hemoglobin 8.1. Hematocrit 24.4. Electrolytes are not checked today. His INR is 1.6. ASSESSMENT: An 85-year-old gentleman with multiple medical comorbidities postoperative day 6 from intramedullary nailing of a right intertrochanteric fracture. Orthopedically, he is doing okay. We are just kind of waiting to get his INR into the therapeutic range. He is still on heparin. PLAN: 1. DVT prophylaxis including thigh-high TEDs, SCDs, and Coumadin. 2. PT/OT. He can weightbear as tolerated in the right leg. 3. Medical management per medicine service. 4. Wound care. Routine wound care to the right leg. 5. Disposition: He is orthopedically okay for discharge any time medically stable. Still waiting to get his INR up to 2 before discharge.
[2020-07-09] MEDS ORDERED: WARFARIN SOD 10 MG TAB PO ONE (14:27)
--- NOTE | 2020-07-09 14:29 | Cardiology Progress Note ---
Date of Service July 09, 2020 Assessment & Plan (1) Chronic atrial fibrillation: (2) Aortic valve replaced: Inr 1.6, HGB 8.1 Coumadin followed by the [facility] clinic as an outpatient. Patient tells me his home regimen is 7.5 mg daily alternating with 5 mg daily. He received 7.5 mg yesterday 07/08/2020. We will give 10 mg x 1 today. Repeat INR tomorrow. Goal INR 2.5-3.5, plan to discontinue heparin once INR is greater than 2. Admission and Anticipated Discharge Date Admission Date: July 03, 2020 Subjective No complaints. Physical Exam Physical Exam: Temp Pulse Resp BP Pulse Ox 36.8 C 62 19 120/72 97 07/09/20 11:06 07/09/20 11:06 07/09/20 11:06 07/09/20 11:06 07/09/20 11:06 Comfortable, mentation appropriate. Physical exam otherwise was not performed Results & Data ([facility]) Vital Signs (Past 12 Hours) Vital Signs Temp Pulse Pulse Resp BP Pulse Ox 07/09/20 11:06 36.8 C 62 19 120/72 97 07/09/20 08:27 78 07/09/20 08:13 37 C 68 20 142/77 H 99 07/09/20 02:48 36.8 C 76 16 144/81 H 99
[2020-07-10] MEDS: ACETAMINOPHEN 325 MG TAB PO PRN ×2 (02:01→10:54)
[2020-07-10] MEDS: MELATONIN 3 MG TAB PO PRN (02:05)
[2020-07-10] MEDS: HEPARIN SODIUM/DEXTROSE 25,000 UNITS/500 ML BAG IV SCH (02:52)
[2020-07-10 06:28] LABS: Partial Thromboplastin Ratio 2.2; Prothrombin Time 19.9 Seconds (9.0-12.0)
[2020-07-10 06:29] LABS: Partial Thromboplastin Time 61.4 Seconds (21.0-31.0)
[2020-07-10] MEDS: VITAMIN B COMPLEX TAB PO SCH (07:57)
[2020-07-10] MEDS: PANTOprazole 40 MG TAB PO SCH (07:57)
[2020-07-10] MEDS: SERTRALINE HCL 50 MG TABLET PO SCH (07:57)
[2020-07-10] MEDS: GABAPENTIN 100 MG CAP PO SCH ×2 (07:57→13:35)
[2020-07-10] MEDS: POLYETHYLENE (MIRALAX) 17 GM PACK PO SCH (07:58)
[2020-07-10] MEDS: SENNA 8.6 MG TAB PO SCH (07:58)
[2020-07-10] MEDS: CHOLECALCIFEROL 1,000 UNITS 25 MCG TAB PO SCH (07:58)
[2020-07-10] MEDS: ASPIRIN 81 MG ECTAB PO SCH (07:58)
[2020-07-10] MEDS: LORATADINE 10 MG TAB PO SCH (07:58)
[2020-07-10] MEDS: ASCORBIC ACID 500 MG TAB PO SCH (07:59)
[2020-07-10] MEDS: METOPROLOL TARTRATE 25 MG TAB PO SCH (07:59)
--- NOTE | 2020-07-10 10:39 | Hospitalist Progress Note ---
Date of Service July 10, 2020 Assessment & Plan (1) Closed intertrochanteric fracture of right hip: (2) Fall: (3) Right knee DJD: (4) Atrial fibrillation: (5) CAD (coronary artery disease): (6) Aortic valve replaced: (7) Mitral valve replaced: (8) S/P CABG x 5: ASSESSMENT AND PLAN: This is an 85 y/o male who presents with mechanical fall and right hip fracture 1. Status post mechanical fall, right hip fracture. S/p R hip intramedullary Nail on 07/03/[address] Ashley Resume Post Op Care per Surgery Protocol Incentive Spirometry 10x per Hour Pain control. Restarted Warfarin IV Heparin started for bridging-No Bolus, Cards and Ortho following At home on warfarin 5 mg MWF and 7.5 mg on other days, goal INR 2.5-3.5. Plan to stop heparin when INR 2 (07/10) INR 2, will stop IV heparin DVT prophylaxis including thigh-high TEDs, SCDs, and back on Coumadin. PT/OT. Pt can fully weightbear on the right lower extremity. Follow up with orthopedics, Dr. Ashley, in 2-3 weeks from surgery date. Post acute blood loss anemia Hgb down to~ 8, initially Hgb about 12, relatively stable for past couple of days, cont. to monitor, no need for blood transfusion at this time 2. History of CAD /p coronary artery bypass graft, history of ischemic cardiomyopathy, history of chronic intraventricular conduction delay, history of ectasia of ascending aorta on aspirin, statin and metoprolol. 3. History of rheumatic aortic valve disease, status post mechanical aortic valve, on chronic Coumadin. 4. Atrial fibrillation, rate controlled. Continue metoprolol. Warfarin restarted 5. Hyperlipidemia. On statin. 6. Hypertension. Continue home medication of metoprolol and resume Lisinopril. 7. Generalized anxiety. Continue Zoloft. 8. GERD. Continue omeprazole. 9. DVT prophylaxis, On coumadin, INR therapeutic, IV heparin sd/c'ed Disposition: PT/OT [facility] [place] Admission and Anticipated Discharge Date Admission Date: July 03, 2020 Subjective Pt seen in follow up for r hip pain s/p surgery, subtherap. INR in the setting of mechanical valve. Pt is sitting up in chair in NAD, eating lunch. No acute events overnight. Reports right hip still feels somewhat tender and stiff. LE edema. INR 2.0, will stop IV heparin. No chest pain, shortness of breath, abd. pain, n/v. Review of Systems Review of Systems: All systems reviewed & are unremarkable except as noted in HPI & below Constitutional: no fever and no chills Respiratory: no cough and no dyspnea Cardiovascular: no chest pain and no palpitations Gastrointestinal: no abdominal pain, no nausea and no vomiting Physical Exam Physical Exam: Gen- elderly male sitting up in chair, AAO x 3, answering q uestions appropriately, NAD Head- NCAT, EOMI, Anicteric Sclera Neck- Supple, No JVD Lungs- CTAB, no wheezing rhonchi, crackles Chest- irregularly irregular, + crisp mechanical sound, No Murmurs Abdomen- Soft, Bowel Sounds Present, Non Tender, Non Distended, No Rigidity, No Guarding Extremities- moves extremities spontaneously, + R LE edema and R thigh ecchymosis, dressings over surg. site dry and clean Neuro- alert and oriented, answering questions appropriately,speech fluent, no facial asymmetry, moves extremities spontaneously Psych- Normal Mood Results & Data Results & Data ([facility]) Vital Signs (Past 12 Hours) Vital Signs Temp Pulse Pulse Resp BP Pulse Ox 07/10/20 08:00 69 07/10/20 07:00 36.7 C 65 18 137/75 100 07/10/20 04:00 36.8 C 74 18 139/72 99 07/10/20 00:00 79 07/09/20 23:50 36.5 C 88 18 132/71 99 Laboratory Results 07/10/20 Range/Units 05:46 PT 19.9 H (9.0-12.0) Seconds INR 2.0 H (0.9-1.1) APTT 61.4 H* (21.0-31.0) Seconds PTT Ratio 2.2 Medications Administered Current Inpatient Medications Acetaminophen (Acetaminophen 325 Mg Tab) 650 mg PO Q4H PRN PRN Reason: Pain or Fever Stop: 08/02/20 00:56 Last Admin: 07/10/20 02:01 Dose: 650 mg Documented by: Ascorbic Acid (Ascorbic [facility] 500 Mg Tab) [facility] Stop: 08/02/20 08:59 Last Admin: 07/10/20 07:59 Dose: 500 mg Documented by: Aspirin (Aspirin 81 Mg Ectab) 81 mg PO [facility] Stop: 08/02/20 08:59 Last Admin: 07/10/20 07:58 Dose: 81 mg Documented by: Bisacodyl (Bisacodyl 10 Mg Supp) 10 mg UT HS PRN PRN Reason: Constipation Stop: 08/06/20 17:38 Gabapentin (Gabapentin 100 Mg Cap) 100 mg PO TID [facility] Stop: 08/02/20 08:59 Last Admin: 07/10/20 07:57 Dose: 100 mg Documented by: Hydralazine HCl (Hydralazine Hcl 20 Mg/Ml Vial) 5 mg IV Q6H PRN PRN Reason: Hypertension Stop: 08/02/20 00:56 Hydromorphone HCl (Hydromorphone Inj 0.5 Mg/0.5 Ml Syr) 0.5 mg IV Q4H PRN PRN Reason: Pain Stop: 07/17/20 00:56 Last Admin: 07/06/20 10:30 Dose: 0.5 mg Documented by: Loratadine (Loratadine 10 Mg Tab) 10 mg PO [facility] Stop: 08/02/20 08:59 Last Admin: 07/10/20 07:58 Dose: 10 mg Documented by: Melatonin (Melatonin 3 Mg Tab) 3 mg PO HS PRN PRN Reason: Sleep Stop: 08/03/20 22:34 Last Admin: 07/10/20 02:05 Dose: 3 mg Documented by: Metoprolol Tartrate (Metoprolol Tartrate 25 Mg Tab) 25 mg PO [facility] Stop: 08/02/20 08:59 Last Admin: 07/10/20 07:59 Dose: 25 mg Documented by: Naloxone HCl (Naloxone Hcl 0.4 Mg/1 Ml Vial/Carp) 0.1 mg IV UD PRN PRN Reason: Opioid Overdose Stop: 08/02/20 15:54 Nitroglycerin (Nitroglycerin Sl 0.4 Mg/Tab Tab) 0.4 mg SL UD PRN PRN Reason: Chest Pain Stop: 08/02/20 00:56 Ondansetron HCl (Ondansetron Inj 2 Mg/Ml 2 Ml Vial) 4 mg IV Q6H PRN PRN Reason: Nausea Stop: 08/02/20 00:56 Pantoprazole Sodium (Pantoprazole 40 Mg Tab) 40 mg PO DAILY [facility] Stop: 08/02/20 08:59 Last Admin: 07/10/20 07:57 Dose: 40 mg Documented by: Polyethylene Glycol (Polyethylene (Miralax) 17 Gm Pack) 17 gm PO DAILY PRN PRN Reason: Constipation Stop: 08/02/20 15:54 Polyethylene Glycol (Polyethylene (Miralax) 17 Gm Pack) 17 gm PO BID [facility] Stop: 08/06/20 20:59 Last Admin: 07/10/20 07:58 Dose: 17 gm Documented by: Rosuvastatin Calcium (Rosuvastatin Calcium 20 Mg Tab) 20 mg PO Q2D@0900 [facility] Stop: 08/02/20 08:59 Last Admin: 07/09/20 08:00 Dose: 20 mg Documented by: Sennosides (Senna 8.6 Mg Tab) 8.6 mg PO BID [facility] Stop: 08/06/20 20:59 Last Admin: 07/10/20 07:58 Dose: 8.6 mg Documented by: Sertraline HCl (Sertraline Hcl 50 Mg Tablet) [facility] Stop: 07/14/20 09:01 Last Admin: 07/10/20 07:57 Dose: 25 mg Documented by: Sertraline HCl (Sertraline Hcl 50 Mg Tablet) 50 mg PO QAM [facility] Stop: 08/14/20 08:59 Vitamin B Complex (Vitamin B Complex Tab) 1 tab [facility] Stop: 08/02/20 08:59 Last Admin: 07/10/20 07:57 Dose: 1 tab Documented by: Vitamin D (Cholecalciferol 1,000 Units 25 Mcg Tab) 1,000 units PO QAM [facility] Stop: 08/02/20 08:59 Last Admin: 07/10/20 07:58 Dose: 1,000 units Documented by: (1) Closed intertrochanteric fracture of right hip Encounter type: initial encounter Fracture alignment: displaced Qualified Code(s): S72.141A - Displaced intertrochanteric fracture of right femur, initial encounter for closed fracture (2) Fall Encounter type: initial encounter Qualified Code(s): W19.XXXA - Unspecified fall, initial encounter
--- NOTE | 2020-07-10 13:13 | Discharge Summary ---
Date of Service July 10, 2020 Admission HPI Per Admitting Provider An 85-year-old male with past medical history significant for hyperlipidemia, chronic ischemic heart disease, history of aortic aneurysm, hypertension, permanent atrial fibrillation, history of calculus of gallbladder, history of generalized anxiety disorder, history of rheumatic aortic valve disease, status post mechanical aortic valve, on chronic Coumadin therapy, history of chronic intraventricular conduction delay who [place] and lives alone, ambulates with a walker, comes with mechanical fall and right hip fracture. The patient has a similar fall in January and at that time had a left hip fracture and status post left hip trochanteric nail placement. The patient says he also hit his back of head, but no loss of consciousness, could not get up, has pain on the right hip region. He denies any fever, chills, no cough, no chest pain, no shortness of breath, no nausea, no vomiting, no abdominal pain, no headache, no blurred vision, no earache, no runny nose, no sore throat. Appetite is okay. Does not sleep well. Normal bowel and bladder movements. Son in the room to help with the history Currently, patient is hemodynamically stable. Admission Exam Per Admitting Provider GENERAL: The patient is old and frail, not in acute distress. VITAL SIGNS: Temperature 36.8, pulse 68, respiratory rate 20, blood pressure 138/83, oxygen 98% on room air. HEENT: No pallor, no icterus. Pupils equal, round, reactive to light. NECK: No JVD, no neck masses, no carotid bruits. CARDIOVASCULAR: S1, S2 heard, regular rate and rhythm, no murmur, no gallop. RESPIRATORY SYSTEM: Normal AP diameter. No accessory muscle use. No wheezing, no crackles. ABDOMEN: Soft, bowel sounds present, nontender. No distention. CENTRAL NERVOUS SYSTEM: Cranial nerves II through XII grossly intact, nonfocal. EXTREMITIES: Right lower extremity is shortened and externally rotated. No erythema seen. Principal Diagnosis IM Nail of Right Hip Fracture Chronic atrial fibrillation, hx of mechanical aortic valve Discharge Exam Gen- elderly male sitting up in chair, AAO x 3, answering questions appropriately, NAD Head- NCAT, EOMI, Anicteric Sclera Neck- Supple, No JVD Lungs- CTAB, no wheezing rhonchi, crackles Chest- irregularly irregular, + crisp mechanical sound, No Murmurs Abdomen- Soft, Bowel Sounds Present, Non Tender, Non Distended, No Rigidity, No Guarding Extremities- moves extremities spontaneously, + R LE edema and R thigh ecchymosis, dressings over surg. site dry and clean Neuro- alert and oriented, answering questions appropriately,speech fluent, no facial asymmetry, moves extremities spontaneously Psych- Normal Mood Discharge Data Allergies Allergy/AdvReac Type Severity Reaction Status Date / Time Sulfa (Sulfonamide AdvReac Intermediate Unknown Unverified 03/01/20 13:13 Antibiotics) Consultations 07/02/20 22:00 ED Decision to Admit Stat 07/03/20 00:57 Consult Case Management - Discharge Planning Routine 07/03/20 08:00 Consult Cardiology Routine Consult Orthopedic Surgery Routine 07/03/20 15:55 Consult Case Management - Discharge Planning Routine Procedures Performed Operation Date: 07/03/20 13:00 Actual Procedures p Right Hip Intramedullary Nail(Right) - Luke Ashley MD Ordered Studies 07/02/20 21:06 CT cervical spine wo con Stat IMPRESSION: No acute fracture or subluxation. CT head/brain wo con Stat Impression: No acute intracranial abnormality. Atrophy and microvascular ischemic changes. Mild posterior scalp swelling. 07/03/20 13:00 FL femur RT 2V Routine FL fluoroscopy <1hr Routine Hospital Course (1) Closed intertrochanteric fracture of right hip: (2) Fall: (3) Right knee DJD: (4) Atrial fibrillation: (5) CAD (coronary artery disease): (6) Aortic valve replaced: (7) Mitral valve replaced: (8) S/P CABG x 5: ASSESSMENT AND PLAN: This is an 85 y/o male who presents with mechanical fall and right hip fracture 1. Status post mechanical fall, right hip fracture. S/p R hip intramedullary Nail on 07/03/[address] Ashley Resume Post Op Care per Surgery Protocol Incentive Spirometry 10x per Hour Pain control. Restarted Warfarin IV Heparin started for bridging-No Bolus, Cards and Ortho following At home on warfarin 5 mg MWF and 7.5 mg on other days, goal INR 2.5-3.5. Plan to stop heparin when INR 2 (07/10) INR 2, will stop IV heparin DVT prophylaxis including thigh-high TEDs, SCDs, and back on Coumadin. PT/OT. Pt can fully weightbear on the right lower extremity. Follow up with orthopedics, Dr. Ashley, in 2-3 weeks from surgery date. Post acute blood loss anemia Hgb down to~ 8, initially Hgb about 12, relatively stable for past couple of days, cont. to monitor, no need for blood transfusion at this time 2. History of CAD /p coronary artery bypass graft, history of ischemic cardiomyopathy, history of chronic intraventricular conduction delay, history of ectasia of ascending aorta on aspirin, statin and metoprolol. 3. History of rheumatic aortic valve disease, status post mechanical aortic valve, on chronic Coumadin. 4. Atrial fibrillation, rate controlled. Continue metoprolol. Warfarin restarted 5. Hyperlipidemia. On statin. 6. Hypertension. Continue home medication of metoprolol and resume Lisinopril. 7. Generalized anxiety. Continue Zoloft. 8. GERD. Continue omeprazole. 9. DVT prophylaxis, On coumadin, INR therapeutic, IV heparin d/c'ed Disposition: PT/OT [facility] [place] Total Time Total Time Spent Total Time Spent (In Minutes): 40 Total Time Includes: Examination of the Patient, Discharge Planning, Medication Reconciliation and Communication With Other Providers Discharge Plan Discharge Items Patient Disposition: Transfer Inpatient Rehab Fac Reason For Visit: FALL Discharge Diagnosis: IM Nail of Right Hip Fracture Chronic atrial fibrillation, hx of mechanical aortic valve Condition on Discharge: Good Activity: Per Instructions section Activity Comment: May weightbear as tolerated on right leg Weightbearing: Full weightbearing Non-emergency contact: Primary Care Provider and Surgeon Call non-emergency contact if: you have any medication questions and your symptoms worsen Follow-up/Referrals: Luke Ashley MD [Physician] - (Orthopedic follow-up 2-3 weeks from surgery date.) [facility] - Diet: Regular and Heart Healthy Addtl Attending Provider Instructions: Follow-up with Dr. Ashley, orthopedic surgeon, in 2 to 3 weeks after surgery. You nay weightbear as tolerated on right leg. You will need to have your INR checked in 2 days, goal INR is 2.5-3.5. Continue taking your warfarin as prescribed. Discuss with anticoagulation clinic if your warfarin dose needs to be adjusted. Pending Studies at Discharge: No Stand-Alone Forms: My [facility] Skilled Items Patient informed of condition?: Yes DNR: No Discharge Level of Care: Acute rehab Communicable Disease: No Discharge Prognosis: Stable Lines: None Urinary Catheter: No Medications and DC Order Prescriptions: New tramadol 50 mg tablet 50 mg PO Q8H Qty: 7 RF: 0 Continued warfarin 5 mg Tablet See Rx Instructions .ROUTE .COMPLEX Qty: 0 RF: 0 rosuvastatin 20 mg Tablet 20 mg PO Q2D Qty: 0 RF: 0 metoprolol tartrate 25 mg Tablet 25 mg PO QAM Qty: 0 RF: 0 ascorbic acid (vitamin C) [Vitamin C] 500 mg Tablet 500 mg PO QAM Qty: 0 RF: 0 lisinopril 10 mg Tablet 10 mg PO QAM Qty: 0 RF: 0 coQ10 (ubiquinol) 200 mg Capsule 200 mg PO QAM Qty: 0 RF: 0 vitamin B complex Tablet 1 tab PO QAM RF: 0 loratadine 10 mg Tablet 10 mg PO QAM RF: 0 cholecalciferol (vitamin D3) [Vitamin D3] 25 mcg (1,000 unit) Tablet 1,000 unit PO QAM RF: 0 omega 3-ukl-fwr-fish oil [Fish Oil] 1,200 (144-216) mg Capsule 1 cap PO QAM RF: 0 aspirin 81 mg Tablet,Delayed Release (Dr/Ec) 81 mg PO QAM Qty: 0 RF: 0 omeprazole 20 mg capsule,delayed release(DR/EC) 20 mg PO DAILY RF: 0 gabapentin 100 mg capsule 100 mg PO TID RF: 0 polyethylene glycol 3350 17 gram/dose Powder 17 g PO DAILY PRN (Reason: Constipation) RF: 0 sertraline 50 mg Tablet See Rx Instructions .ROUTE .COMPLEX RF: 0 Discharge Orders: Discharge Order (Routine); Ordered 07/10/20 Ordered By: Ifeanyi Crowder Admission Data Admit Date/Time: 07/03/20 00:01 Attending Provider: Ifeanyi Crowder Admit Provider: Mike Hernandez Primary Care Provider: Mauro Mejia Other Providers: Mauro Mejia ; Mike Hernandez ; Watson Garcia ; Freeman Rodriguez ; Efrain Landers
[2020-07-15] MEDS ORDERED: SERTRALINE HCL 50 MG TABLET PO SCH (09:00)
== END 2020-07-10 15:30 | DRG 481 ==
LOC: ED 20:59 → SUATTDRO 07-03 00:01 → 2N 07-03 00:01

== ENCOUNTER 2020-09-09 09:44 | Inpatient (IN) ==
--- NOTE | 2020-09-01 15:17 | PAT Medication Instructions ---
Medication Instructions Date of Service September 01, 2020 Home Medications Medication Instructions Recorded aspirin 81 mg PO QAM #0 tab 02/15/20 ascorbic acid (vitamin C) [Vitamin C] 500 mg PO QAM coQ10 (ubiquinol) 200 mg PO QAM lisinopril 10 mg PO QAM metoprolol tartrate 25 mg PO QAM cholecalciferol (vitamin D3) [Vitamin D3] 1,000 unit PO QAM loratadine 10 mg PO QAM omega 3-rbs-zss-fish oil [Fish Oil] 1 cap PO QAM vitamin B complex 1 tab PO QAM aspirin 81 mg PO QAM gabapentin 100 mg PO TID omeprazole 20 mg PO QAM sertraline 50 mg PO QAM acetaminophen [Tylenol 8 Hour] 650 mg PO QID melatonin 3 mg PO DAILY@1999 PRN warfarin [Coumadin] 7.5 mg PO DAILY@1999 rosuvastatin 20 mg PO Q2D ASK your prescriber and surgeon aspirin 81 mg PO QAM warfarin [Coumadin] 7.5 mg PO DAILY@1999 STOP taking 2 weeks before surgery If surgery is within 2 weeks, stop taking as soon as possible. coQ10 (ubiquinol) 200 mg PO QAM omega 4-qco-rtz-fish oil [Fish Oil] 1 cap PO QAM DO NOT take the morning of surgery ascorbic acid (vitamin C) [Vitamin C] 500 mg PO QAM lisinopril 10 mg PO QAM cholecalciferol (vitamin D3) [Vitamin D3] 1,000 unit PO QAM loratadine 10 mg PO QAM vitamin B complex 1 tab PO QAM Take morning of surgery With a small sip of water, OTHERWISE NOTHING TO EAT OR DRINK AFTER MIDNIGHT: metoprolol tartrate 25 mg PO QAM gabapentin 100 mg PO TID omeprazole 20 mg PO QAM sertraline 50 mg PO QAM acetaminophen [Tylenol 8 Hour] 650 mg PO QID (if needed, may be taken up to four hours before surgery) Take evening before surgery gabapentin 100 mg PO TID acetaminophen [Tylenol 8 Hour] 650 mg PO QID melatonin 3 mg PO DAILY@1999 PRN warfarin [Coumadin] 7.5 mg PO DAILY@1999 rosuvastatin 20 mg PO Q2D Other Notes If you have any questions please call us at [phone] or [phone] or [phone] or [phone]
--- NOTE | 2020-09-01 15:25 | Anesthesiology Consultation ---
Date of Service September 01, 2020 Assessment & Plan (1) Encounter for pre-operative examination: - Per assessment on 09/01: Travel screen- Lives at [facility] ([place]). No known COVID-19 positive contacts or current COVID-19 related symptoms. Patient receives routine COVID testing per nursing scrap preparation supervisor (all previous testing negative). Per nursing scrap preparation supervisor, there are no positive COVID cases at the facility at this time. Surgeon arranging preop COVID testing. Awaiting results. - Cardiology office visit (S): 09/23/19: "history of coronary disease, mechanical aortic valve replacement and permanent atrial fibrillation. Since his last evaluation with me in September of 2018 he states he has been doing well. He has no complaints from a cardiac standpoint and specifically denies experiencing any chest pain, shortness of breath, palpitations, lightheadedness, dizziness or syncope.. From a cardiac standpoint he is doing very well and no further cardiac testing or intervention is necessary at this time. He is on a very good medical regimen no medication changes will be made. I have greatly encouraged him to remain active as he has been and I will continue seen here on an annual basis." - Inpatient cardiology preop evaluation ([facility]): 02/09/20: (prior to 01/2020 hip nailing surgery): "This is an elderly patient who had a mechanical fall and broke his hip that will need surgical fixation. Patient has a history of a mechanical aortic valve and according to our records he does not have a a mitral valve replacement. He also has ischemic heart disease with previous coronary artery bypass surgery and a history of a previous CVA. By geriatric sensitive perioperative risk assessment the patient has a 4.1% risk with the surgery and therefore he should proceed." - S/P Left hip troch nail: 02/10/20: Grade view 1, ETT 7.5 at [facility] - S/P Right hip nailin07/03/20: Grade view 2, MAC#3, ETT 7.5 at [facility] - Check coags AM DOS - Abnormal CXR: Per most recent CXR 07/23/20- Small right pleural effusion with right lower lung zone airspace opacities, possibly representing a pneumonia with recommendation of follow-up imaging. Done at [facility] ER (seen for arm swelling)- per ER physician evaluation at that time "Clinically my suspicion for pneumonia is very low. The patient was told the results of the test. He was given IV Ancef for his cellulitis of his right arm. Based on the x-ray findings and his arm cellulitis, he will be discharged on doxycycline." Will attempt to have patient have repeat CXR prior to surgery if possible. Chart Review Chart Review: Acceptable Risk for Surgery (pending updated CXR) and Patient NOT seen in Pre Admission Testing History Surgery Operation Date: 09/09/20 09:55 Proposed Procedures p Esophagogastroduodenoscopy, - Andrea Ibarra MD s Endoscopic Ultrasonography - Andrea Ibarra MD Operation Date: 09/09/20 10:05 Proposed Procedures p Esophagogastroduodenoscopy - Andrea Ibarra MD s Endoscopic Ultrasonography Upper - Andrea Ibarra MD Height/Weight Height: 5 ft 9 in Weight: 73.936 kg Allergies Allergy/AdvReac Type Severity Reaction Status Date / Time Sulfa (Sulfonamide AdvReac Intermediate Unknown Unverified 09/01/20 14:25 Antibiotics) Medications Home Medications Medication Instructions Recorded Confirmed Last Taken ascorbic acid (vitamin C) [Vitamin 500 mg PO QAM #0 03/28/17 09/01/20 07/23/20 C] coQ10 (ubiquinol) 200 mg PO QAM #0 03/28/17 09/01/20 07/23/20 lisinopril 10 mg PO QAM #0 tab 03/28/17 09/01/20 07/23/20 metoprolol tartrate 25 mg PO QAM #0 tab 03/28/17 09/01/20 07/23/20 cholecalciferol (vitamin D3) 1,000 unit PO QAM 02/08/20 09/01/20 07/23/20 [Vitamin D3] loratadine 10 mg PO QAM 02/08/20 09/01/20 07/23/20 omega 9-xwk-xbr-fish oil [Fish Oil] 1 cap PO QAM 02/08/20 09/01/20 07/23/20 vitamin B complex 1 tab PO QAM 02/08/20 09/01/20 07/23/20 aspirin 81 mg PO QAM #0 tab 02/15/20 09/01/20 07/23/20 gabapentin 100 mg PO TID 07/02/20 09/01/20 07/23/20 18:00 omeprazole 20 mg PO QAM 07/02/20 09/01/20 07/23/20 sertraline 50 mg PO QAM 07/02/20 09/01/20 07/23/20 acetaminophen [Tylenol 8 Hour] 650 mg PO QID 07/23/20 09/01/20 07/23/20 16:00 melatonin 3 mg PO DAILY@1999 PRN 07/23/20 09/01/20 07/22/20 warfarin [Coumadin] 7.5 mg PO DAILY@199907/23/20 09/01/20 07/22/20 rosuvastatin 20 mg PO Q2D 09/01/20 09/01/20 Unknown Past Medical History Medical History Aortic valve disease rheumatic aortic valve disease s/p AVR (2002) Atrial fibrillation permanent CAD (coronary artery disease) s/p CABG x5 (2002) Cranial nerve palsy CVA (cerebral vascular accident) per records dating back to 2014, patient denies Depression GERD (gastroesophageal reflux disease) HTN (hypertension) Ischemic cardiomyopathy "mild" Past Family History Family History Unknown Family history non-contributory Past Surgical History Surgical History Aortic valve replaced (during CABG- 2002) History of hip surgery Right hip nailin07/03/20: Grade view 2, MAC#3, ETT 7.5 at [facility] S/P CABG x 5 2002 Social History Smoking Status: Unknown if ever smoked Alcohol type: beer and wine alcohol intake frequency: a few times a month Hx Substance Use: No Testing Laboratory Results 09/01/20 WBC 9.08 H/H 10.8/35.2 PLATELETS 253 SODIUM 139 POTASSIUM 4.1 CHLORIDE 107 CO2 25 BUN 18 CREATININE 0.61 GLUCOSE 93 HGBA1C 5.4% PT 27.5 INR 2.8 Electrocardiogram Date: 07/23/20 A. fib with slow ventricular response at 55bpm. LAD. NS IVCD. Chest X-Ray Date: 07/23/20 IMPRESSION: Cardiomegaly. Small right pleural effusion with right lower lung zone airspace opacities, possibly representing a pneumonia. Clinical and radiographic follow-up is recommended. Echocardiogram Date: 10/14/17 Normal LV systolic function, EF 50-55%. Akinesis of the anteroapical and anteroseptal rodney, otherwise normal wall motion. Grade 1 DD. Bi-leaflet aortic prosthesis. No regurg. The gradient is normal for this prosthetic aortic valve. Mild TR. Mild LAE. Moderate enlargement of the ascending aorta.
[~2020-09-09 09:44] MED LIST changes: -ACET-1047 PO; -ASCO10003 PO; -ASPI81TA28 PO; -COEN200C PO; -FEXO1TAB49 PO; -FLUT0.15 NAE; -LISI-461 PO; +LR 15ML/HR IV SCH; -METO25TA56 PO; -OMEP20CA9 PO; -REDCAP2 PO; -ROSU20TA PO; -WARF5TAB90 PO; -WARF7.5T PO
--- NOTE | 2020-09-09 10:31 | History & Physical Report ---
Date of Service September 09, 2020 Assessment & Plan (1) Encounter for pre-operative examination: EGD/EUS History of Present Illness Primary Care Provider: Jamison Reynolds DO EGD for dilation and EUS for Pancreas IPMN Allergies Allergy/AdvReac Type Severity Reaction Status Date / Time Sulfa (Sulfonamide AdvReac Intermediate Unknown Unverified 09/01/20 14:25 Antibiotics) Home Medications Medication Instructions Recorded Confirmed Type ascorbic acid (vitamin C) [Vitamin 500 mg PO QAM #0 03/28/17 09/01/20 History C] coQ10 (ubiquinol) 200 mg PO QAM #0 03/28/17 09/01/20 History lisinopril 10 mg PO QAM #0 tab 03/28/17 09/01/20 History metoprolol tartrate 25 mg PO QAM #0 tab 03/28/17 09/01/20 History cholecalciferol (vitamin D3) 1,000 unit PO QAM 02/08/20 09/01/20 History [Vitamin D3] loratadine 10 mg PO QAM 02/08/20 09/01/20 History omega 5-lkk-nwn-fish oil [Fish Oil] 1 cap PO QAM 02/08/20 09/01/20 History vitamin B complex 1 tab PO QAM 02/08/20 09/01/20 History aspirin 81 mg PO QAM #0 tab 02/15/20 09/01/20 Rx gabapentin 100 mg PO TID 07/02/20 09/01/20 History omeprazole 20 mg PO QAM 07/02/20 09/01/20 History sertraline 50 mg PO QAM 07/02/20 09/01/20 History acetaminophen [Tylenol 8 Hour] 650 mg PO QID 07/23/20 09/01/20 History melatonin 3 mg PO DAILY@1999 PRN 07/23/20 09/01/20 History warfarin [Coumadin] 7.5 mg PO DAILY@199907/23/20 09/01/20 History rosuvastatin 20 mg PO Q2D 09/01/20 09/01/20 History Past Med/Surg History Medical History Aortic valve disease rheumatic aortic valve disease s/p AVR (2002) Atrial fibrillation permanent CAD (coronary artery disease) s/p CABG x5 (2002) Cranial nerve palsy CVA (cerebral vascular accident) per records dating back to 2014, patient denies Depression GERD (gastroesophageal reflux disease) HTN (hypertension) Ischemic cardiomyopathy "mild" Surgical History Aortic valve replaced (during CABG- 2002) History of hip surgery Right hip nailin07/03/20: Grade view 2, MAC#3, ETT 7.5 at [facility] S/P CABG x 5 2002 Family History Unknown Family history non-contributory Social History Smoking Status: Unknown if ever smoked Tobacco Type: Cigarettes Second Hand Exposure: No; Hx Substance Use: No Preferred Language: Chinese Communication Ability: Effective Food And Nutrition Professor Required: No Beliefs That Will Affect Care: None Current Living Situation: Group Home Current Living Situation Comment: AT [facility] Feels Safe at Home: Yes Assistive Devices: Walker Review of Systems All systems reviewed & are unremarkable except as noted in HPI & below Physical Exam Constitutional: comfortable; no acute distress Respiratory: normal respiratory effort, lungs clear to auscultation Cardiovascular: RRR, no murmur, no edema Gastrointestinal (Abdomen): normal bowel sounds, soft, nontender, no hepatosplenomegaly
[2020-09-09 11:02] LABS: Partial Thromboplastin Ratio 1.2; Partial Thromboplastin Time 32.9 Seconds (21.0-31.0); Prothrombin Time 20.1 Seconds (9.0-12.0)
[2020-09-09] MEDS ORDERED: fentaNYL citrate 100 MCG/2 ML VIAL ONE (11:23)
[2020-09-09] MEDS ORDERED: ONDANSETRON INJ 2 MG/ML 2 ML VIAL ONE (11:23)
[2020-09-09] MEDS ORDERED: PROPOFOL IV EMULSION 10 MG/ML 20 ML VIAL IV ONE (11:23)
[2020-09-09] MEDS ORDERED: LIDOCAINE HCL 2% 2 ML VIAL/AMP(20MG/ML) INFIL ONE ×2 (11:23→11:24)
[2020-09-09] MEDS ORDERED: CIPROFLOXACIN / D5W 400 MG/200 ML BAG IV SCH (11:30)
[2020-09-09] MEDS ORDERED: SUCCINYLCHOLINE CHLORIDE 20 MG/ML 10 ML VIAL IV ONE (12:32)
[2020-09-09] MEDS ORDERED: ROCURONIUM BROMIDE 10 MG/ML 5 ML VIAL IV ONE (12:32)
[2020-09-09] MEDS ORDERED: DEXAMETHASONE SOD INJ 4 MG/ML VIAL ONE (12:32)
[2020-09-09] MEDS ORDERED: ePHEDrine sulfate 50 MG/ML AMP ONE (12:40)
[2020-09-09] MEDS ORDERED: SODIUM CHLORIDE 0.9% INJ 10 ML VIAL ONE (12:40)
[2020-09-09] MEDS ORDERED: fentaNYL citrate 100 MCG/2 ML VIAL IV PRN (12:44)
[2020-09-09] MEDS ORDERED: ATROPINE SULFATE 0.1 MG/ML 10ML SYR IV PRN (12:44)
[2020-09-09] MEDS ORDERED: ePHEDrine sulfate 50 MG/ML AMP IV PRN (12:44)
[2020-09-09] MEDS ORDERED: ONDANSETRON INJ 2 MG/ML 2 ML VIAL IV PRN ×2 (12:44→15:13)
--- NOTE | 2020-09-09 13:02 | Operative Report ---
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 I identified the patient and participated in the time-out.: Yes Procedure Operation Date: 09/09/20 10:05 <No data on this case meets the specified criteria> Operation Date: 09/09/20 11:25 Actual Procedures p Esophagogastroduodenoscopy with Esophageal dilation(Not Applicable) - Andrea Ibarra MD s Upper Endoscopic Ultrasonography(Not Applicable) - Andrea Ibarra MD Surgeon Andrea Ibarra MD [employer]ops Referee None Estimated Blood Loss 0 Findings See Below (Pancreas cyst, CBD stone, Cholangitis seen) Specimens None Description of Procedure EGD/EUS I attest to the content of the Intraoperative Record and any orders documented therein. Any exceptions are noted below.
--- NOTE | 2020-09-09 13:32 | Gastroenterology Progress Note ---
Date of Service September 09, 2020 Subjective Patient with elevated LFTs and gallstones, on EUS today a CBD stone was seen with thickened bile duct wall and pus seen flowing out of the ampulla consistent with cholangitis. Unfortunately patient is on Coumadin and INR is 2 hence could not do ERCP. I spoke to the son and he agreed that we admit the patient, start IV ABx, correct INR and plan for ERCP over the weekend. I will also consult surgery to plan for a combo ERCP/Lap norma if possible. Results & Data ([facility]) Vital Signs (Past 12 Hours) Vital Signs Temp Pulse Pulse Resp BP BP Pulse Ox 09/09/20 13:20 65 15 123/63 99 09/09/20 13:11 36.2 C L 58 L 16 128/63 98 09/09/20 10:50 36.5 C 56 L 18 136/77 97
--- NOTE | 2020-09-09 13:41 | GI REPORT ---
Patient Name: Anthony Cadena Procedure Date: 09/09/2020 12:02 PM Date of : 1935 Admit Type: Outpatient Age: 85 Gender: Male Attending MD: Andrea Ibarra MD Procedure: Upper GI endoscopy Providers: Andrea Ibarra MD Referring MD: Leelee Canela d.o., NP Indications: Dysphagia Medicines: General Anesthesia Complications: No immediate complications. Estimated Blood Loss: Estimated blood loss: none. Procedure: Pre-Anesthesia Assessment: - Prior to the procedure, a History and Physical was performed, and patient medications, allergies and sensitivities were reviewed. The patient's tolerance of previous anesthesia was reviewed. - The risks and benefits of the procedure and the sedation options and risks were discussed with the patient. All questions were answered and informed consent was obtained. - Patient identification and proposed procedure were verified prior to the procedure by the physician and the nurse. The procedure was verified in the procedure room. - Pre-procedure physical examination revealed no contraindications to sedation. After obtaining informed consent, the endoscope was passed under direct vision. Throughout the procedure, the patient's blood pressure, pulse, and oxygen saturations were monitored continuously. The Endoscope was introduced through the mouth, and advanced to the second part of duodenum. The upper GI endoscopy was accomplished without difficulty. The patient tolerated the procedure well. Findings: A web was found in the upper third of the esophagus. A guidewire was placed and the scope was withdrawn. Dilation was performed with a Savary dilator with mild resistance at 45 Fr. The dilation site was examined following endoscope reinsertion and showed no bleeding, mucosal tear or perforation. A hiatal hernia was found. The proximal extent of the gastric folds (end of tubular esophagus) was 39 cm from the incisors. The hiatal narrowing was 41 cm from the incisors. The entire examined stomach was normal. The duodenal bulb and second portion of the duodenum were normal. A medium diverticulum was found in the area of the papilla. Impression: - Web below UES. Dilated up to 15 mm. - Hiatal hernia. - Normal stomach. - Normal duodenal bulb and second portion of the duodenum. - Duodenal diverticulum. Recommendation: - Follow an antireflux regimen. - Clear liquid diet today. - Perform an upper endoscopic ultrasound (UEUS) today. Andrea Ibarra MD 09/09/2020 1:41:07 PM This report has been signed electronically. Note Initiated On: 09/09/2020 12:02 PM Number of Addenda: 0 I attest to the content of the Intraoperative Record and orders documented therein, exceptions below {[id number]}
--- NOTE | 2020-09-09 13:52 | GI REPORT ---
Patient Name: Anthony Cadena Procedure Date: 09/09/2020 12:01 PM Date of : 1935 Admit Type: Outpatient Age: 85 Gender: Male Attending MD: Andrea Ibarra MD Procedure: Upper EUS Providers: Andrea Ibarra MD Referring MD: Andrea Ibarra MD Indications: Pancreatic cyst on MRI, Elevated liver enzymes Medicines: General Anesthesia, Cipro 400 mg IV Complications: No immediate complications. Estimated Blood Loss: Estimated blood loss: none. Procedure: Pre-Anesthesia Assessment: - Prior to the procedure, a History and Physical was performed, and patient medications, allergies and sensitivities were reviewed. The patient's tolerance of previous anesthesia was reviewed. - The risks and benefits of the procedure and the sedation options and risks were discussed with the patient. All questions were answered and informed consent was obtained. - Patient identification and proposed procedure were verified prior to the procedure by the physician and the nurse. The procedure was verified in the procedure room. - Pre-procedure physical examination revealed no contraindications to sedation. After obtaining informed consent, the endoscope was passed under direct vision. Throughout the procedure, the patient's blood pressure, pulse, and oxygen saturations were monitored continuously. The scope was introduced through the mouth, and advanced to the second part of duodenum. The upper EUS was accomplished without difficulty. The patient tolerated the procedure well. Findings: ENDOSONOGRAPHIC FINDING: : There was no sign of significant endosonographic abnormality in the ampulla. No masses were identified. Periampullary diverticulum seen. One stone was visualized endosonographically in the common bile duct. The stone measured 6 mm in greatest dimension. It was hyperechoic and characterized by shadowing. The duct diameter measured 7 mm. The duct wall was thickened. Multiple stones were visualized endosonographically in the gallbladder. They were hyperechoic and characterized by shadowing. There was no sign of significant endosonographic abnormality in the visualized portion of the liver. Homogeneous parenchyma was identified. Pancreatic parenchymal abnormalities were noted in the entire pancreas. These consisted of diffuse echogenicity and lobularity. PD measured 2 mm in diameter. An anechoic lesion suggestive of a cyst was identified in the pancreatic body. The lesion measured 11 mm in maximal cross-sectional diameter. There was a single compartment without septae. The outer wall of the lesion was thin. There was no associated mass. There was no internal debris within the fluid-filled cavity. An anechoic lesion suggestive of a cyst was identified in the uncinate process of the pancreas. The lesion measured 5 mm in maximal cross-sectional diameter. There was a single compartment There was no associated mass. There was no internal debris within the fluid-filled cavity. There was no sign of significant endosonographic abnormality in the visualized portion of the left adrenal gland. There was no sign of significant endosonographic abnormality involving the celiac trunk. Impression: - One stone was visualized endosonographically in the common bile duct with thickened ductal wall and observation of purulent material flowing out of the ampulla consistent with acute cholangitis. - Multiple stones were visualized endosonographically in the gallbladder. - There was no evidence of significant pathology in the visualized portion of the liver. - Pancreatic parenchymal abnormalities consisting of diffuse echogenicity and lobularity were noted in the entire pancreas suggestive of fatty pancreas. 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 - Endosonographic images of the left adrenal gland were unremarkable. - The celiac trunk was endosonographically normal. - No specimens collected. Recommendation: - Ad[facility] the [facility] to [facility] for ongoing care and treatment of cholangitis. - CBC, CMP. - Zosyn (piperacillin tazobactam) IV. - Give 10 mg of IV Vitamin K to correct his INR. - Perform an ERCP tomorrow. - Surgery consult to arrange for combo ERCP/ Lap norma. - MRI of the pancreas for surveillance on the cyst in one year. - I spoke to his POA the son, AGUSTIN, who agreed. Andrea Ibarra MD 09/09/2020 1:51:06 PM This report has been signed electronically. Note Initiated On: 09/09/2020 12:01 PM Number of Addenda: 0 I attest to the content of the Intraoperative Record and orders documented therein, exceptions below {[id number]}
--- NOTE | 2020-09-09 13:52 | Anesthesiology Progress Note ---
Date of Service September 09, 2020 Anesthesia Post Procedure Vital Signs Vital Signs: Temp Pulse Pulse Resp BP BP Pulse Ox 09/09/20 13:40 59 L 18 136/63 95 09/09/20 13:30 60 20 134/73 97 09/09/20 13:20 65 15 123/63 99 09/09/20 13:11 36.2 C L 58 L 16 128/63 98 09/09/20 10:50 36.5 C 56 L 18 136/77 97 Transfer of Care Handoff Completed per policy Notes Mental Status: alert / awake / arousable Patient Amnestic to Procedure: Yes Nausea / Vomiting: adequately controlled Pain: adequately controlled Airway Patency, RR, SpO2: stable & adequate BP & HR: stable & adequate Hydration State: stable & adequate Anesthetic Complications: no major complications apparent
--- NOTE | 2020-09-09 15:10 | History & Physical Report ---
Date of Service September 09, 2020 Assessment & Plan (1) Cholangitis: This is a 85-year-old male who has significant past medical history of CAD status post CABG x5 in 2002, rheumatic aortic valve disease status post mechanical valve replacement in 2002, ischemic cardiomyopathy, permanent atrial fibrillation anticoagulated on Coumadin, HTN, HLD, depression with anxiety who presented today for elective endoscopy secondary to dysphagia. Admit to [employer] tele IV zosyn clear liquid diet tonight, NPO after midnight Vit k 5mg x 1 now, hold warfarin likely ERCP with lap norma in a.m. consult GI and general surgery case discussed with Dr. Ibarra and Dr. Garcia regarding cardiac risk bridge with low dose IV heparin, stop @ 2am for upcoming procedure (2) Abnormal ENT evaluation: Per Anesthesiology abnormal finding questionable mass of epiglottis and is recommending ENT evaluation as outpatient for laryngoscope (3) CAD (coronary artery disease): (4) S/P CABG x 5: (5) Aortic valve replaced: (6) Chronic atrial fibrillation: (7) HTN (hypertension): hx of CAD with CAGB x 5 and rheumatic aortic valve s/p mechanical AVR in 2002 Permanent atrial fib anticoagulated on coumadin INR 2.0, hold warfarin, give vitamin K 5mg IV x 1, INR in a.m. Low dose no bolus heparin bridge discussed with cardiology regarding above as pt is high risk for thrombotic event given afib and rheumatic aortic valve replacement chadsvasc 4 (8) Memory deficits: pt awaiting formal neuropysch eval for dementia, no formal dx recent MRI 08/2020 :No recent ischemia, hemorrhage, or other acute intracranial abnormality. Numerous infratentorial and supratentorial chronic lacunar infarcts. Many of these are associated with hemosiderin deposition. 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 Advanced global brain volume loss with extensive mainly confluent white matter T2/FLAIR hyperintensities, nonspecific findings most commonly associated with chronic microvascular ischemic disease. Son confirms baseline of A&O x 2 person and pace may require support person at bedside (9) DVT prophylaxis: IV heparin low dose, hold warfarin DNR/DNI Disposition: admit to [employer] tele Follow up: PCP Dr. Reynolds upon discharge Pt was seen and examined in collaboration with Dr. Winslow History of Present Illness Chief Complaint: Abnormal EUS with findings of cholangitis, referred for admission. Primary Care Provider: Jamison Reynolds DO This is a 85-year-old male who has significant past medical history of CAD status post CABG x5 in 2002, rheumatic aortic valve disease status post mechanical valve replacement in 2002, ischemic cardiomyopathy, permanent atrial fibrillation anticoagulated on Coumadin, HTN, HLD, depression with anxiety who presented today for elective endoscopy secondary to dysphagia. Dr. Ibarra performed procedure and findings include a Web below UES, dilated up to 15mm, hiatal hernia, normal stomach, duodenal diverticulum and normal duodenal bulb. A EUS was then performed for IPMN and CBD stone was seen with thickened bile duct wall plus flowing out of the ampulla consistent with cholangitis. Due to INR being 2 ERCP could not be performed. Admission was recommended. Patient was seen in PACU without complaint. He denies fever, chills, sweats, lightheadedness, dizziness, chest pain, shortness of breath nausea, vomiting, abdominal pain, change in bowel or urinary habits. He was complaining of productive cough secondary to intubation. Patient does have history of memory loss therefore ROS unreliable. Of significance patient does live at the [facility] secondary to right hip fracture sustained in June 2020. He also had left hip fracture January 2020. Allergies Allergy/AdvReac Type Severity Reaction Status Date / Time Sulfa (Sulfonamide AdvReac Intermediate Unknown Unverified 09/01/20 14:25 Antibiotics) Home Medications Medication Instructions Recorded Confirmed Type ascorbic acid (vitamin C) [Vitamin 500 mg PO QAM #0 03/28/17 09/09/20 History C] coQ10 (ubiquinol) 200 mg PO QAM #0 03/28/17 09/09/20 History lisinopril 10 mg PO QAM #0 tab 03/28/17 09/09/20 History metoprolol tartrate 25 mg PO QAM #0 tab 03/28/17 09/09/20 History cholecalciferol (vitamin D3) 1,000 unit PO QAM 02/08/20 09/09/20 History [Vitamin D3] loratadine 10 mg PO QAM 02/08/20 09/09/20 History omega 7-oxt-ecf-fish oil [Fish Oil] 1 cap PO QAM 02/08/20 09/09/20 History vitamin B complex 1 tab PO QAM 02/08/20 09/09/20 History aspirin 81 mg PO QAM #0 tab 02/15/20 09/09/20 Rx gabapentin 100 mg PO TID 07/02/20 09/09/20 History omeprazole 20 mg PO QAM 07/02/20 09/09/20 History sertraline 50 mg PO QAM 07/02/20 09/09/20 History acetaminophen [Tylenol 8 Hour] 650 mg PO QID 07/23/20 09/09/20 History melatonin 3 mg PO DAILY@1999 PRN 07/23/20 09/09/20 History warfarin [Coumadin] 7.5 mg PO DAILY@199907/23/20 09/09/20 History rosuvastatin 20 mg PO Q2D 09/01/20 09/09/20 History Past Med/Surg History Medical History (Updated 09/09/20 @ 15:52 by Cyndi Vides PA-C) Aortic valve disease rheumatic aortic valve disease s/p AVR (2002) mechanical Atrial fibrillation permanent CAD (coronary artery disease) s/p CABG x5 (2002) Cranial nerve palsy CVA (cerebral vascular accident) per records dating back to 2014, patient denies Depression GERD (gastroesophageal reflux disease) HTN (hypertension) Ischemic cardiomyopathy "mild" Surgical History Aortic valve replaced (during CABG- 2002) History of hip surgery Right hip nailin07/03/20: Grade view 2, MAC#3, ETT 7.5 at [facility] S/P CABG x 5 2002 Family History (Updated 09/09/20 @ 15:06 by Karine Bearden PA-C) Unknown No problems noted. 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 Beliefs That Will Affect Care: None marital status: / Current Living Situation: Group Home Current Living Situation Comment: AT [facility] Other Information That Helps Us Care for You: No Feels Safe at Home: Yes Safety Concerns: Feels Safe At This Time Assistive Devices: Walker and Wheelchair Review of Systems Review of Systems: All systems reviewed & are unremarkable except as noted in HPI & below Physical Exam Physical Exam: Constitutional: WD/WN, elderly, M, vitals as above, NAD, sitting up in bed, pleasant, conversing easily Head: Normocephalic, Atraumatic Eyes: PERRL, conjunctivae normal, anicteric sclerae ENMT: external ear and nose normal, oropharynx normal Neck: trachea midline, no thyromegaly normal visual inspection Respiratory: normal respiratory effort, lungs clear to auscultation, no wheeze, rales, rhonchi. Normal insp/exp effort, no accessory muscle use Cardiovascular: IRR/IRR, no murmur, no edema Vessels: no JVD or carotid bruit Chest: normal inspection of chest Abdomen: normal bowel sounds, soft, nontender, no hepatosplenomegaly Musculoskeletal: no cyanosis or clubbing, extremities motor strength 5/5 Skin: no rashes, warm and dry normal turgor Neurologic: PERRL, EOMI, accommodation nl, no face palsy, no dysarthria CN's II-XI intact bilaterally and moves all extremities Psychiatric: A+Ox1, euthymic affect : deferred Results & Data Results & Data ([facility]) Vital Signs (Past 12 Hours) Vital Signs Temp Pulse Pulse Resp BP BP Pulse Ox 09/09/20 14:50 49 L 16 134/83 95 09/09/20 14:35 58 L 15 141/71 H 92 09/09/20 14:20 52 L 16 137/63 95 09/09/20 14:05 51 L 15 135/69 93 09/09/20 13:50 36.3 C L 54 L 16 126/69 94 09/09/20 13:40 59 L 18 136/63 95 09/09/20 13:30 60 20 134/73 97 09/09/20 13:20 65 15 123/63 99 09/09/20 13:11 36.2 C L 58 L 16 128/63 98 09/09/20 10:50 36.5 C 56 L 18 136/77 97 Diagnostic Findings EGD and EUS results reviewed Medications Administered Discontinued Medications Lactated Ringer's (Lr) 1,000 mls @ 15 mls/hr IV .Q24H PATTIE Stop: 09/10/20 05:59 Last Infusion: 09/09/20 11:59 Dose: 0 mls/hr Documented by: [id number] Admin: 09/09/20 10:50 Dose: 15 mls/hr Documented by: [id number] Ciprofloxacin (Cipro / D5w) 400 mg in 200 mls @ 100 mls/hr IV PREOP PATTIE; Protocol Stop: 09/09/20 18:00 Last Infusion: 09/09/20 15:17 Dose: 0 mls/hr Documented by: [id number] Admin: 09/09/20 11:59 Dose: 100 mls/hr Documented by: [id number] ECG Rate (beats per minute): 55 Rhythm: atrial fibrillation Additional Comments: 07/23/20 Nonspecific intraventricular conduction block Code Status & VTE Plan Code Status DNR/DNI VTE Prophylaxis Plan VTE Prophylaxis will be ordered: No Reason for no VTE drug order: Contraindicated Reason for no VTE mechanical prophylaxis: Treatment not indicated Supervising Physician Co-Signing Physician Notes 85-year-old male who has significant past medical history of CAD status post CABG x5 in 2002, rheumatic aortic valve disease status post mechanical valve replacement in 2002, ischemic cardiomyopathy, permanent atrial fibrillation anticoagulated on Coumadin, HTN, HLD, depression with anxiety who presented today for elective endoscopy secondary to dysphagia. History as detailed above. Found to have a web in the upper third of the esophagus status post dilation. Also had a hiatal hernia. US showed CBD stone, taking bile duct wall with proximal flowing from ampulla. At the time of evaluation in PACU, patient had no complaints except for cough after procedure Exam notable for AO x1 [to person only], irregularly irregular pulse Available lab work [PT/INR] notable for INR of 2.0 Notable findings of procedure as above -Cholangitis in a patient with significant cardiac history on anticoagulation Continue Zosyn. Discussed with community health representative Dr Ibarra. He plans for ERCP plus lap norma with the surgeons tomorrow and would want INR reversal. Patient has a history of persistent A. fib, ischemic cardiomyopathy with EF of 48%, mechanical aortic valve per Cardiology records. He is high thrombotic risk with a [id number] of 4 I discussed perioperative anticoagulation with the licensed and certified midwife Dr Garcia. We will give vitamin K for reversal now. We will start heparin drip [low dose without bolus] now and hold prior to OR in the morning. We will check INR in the morning with a.m. labs. Discussed plans with community health representative and agreeable. Plan to hold heparin drip at 2 AM. Patient will need bridging anticoagulation with heparin and Coumadin postop once okay by GI and surgeon Anesthesiologist reports questionable mass on the epiglottis and recommending outpatient ENT evaluation. Other plans as detailed above
[2020-09-09] MEDS ORDERED: MAGNESIUM HYDROXIDE SUSP 30 ML UDC PO PRN (15:13)
[2020-09-09] MEDS ORDERED: PIPERACILL/TAZOBAC CONSULT ACTIVE PRN (15:13)
[2020-09-09] MEDS ORDERED: ALUMINUM/MAGNESIUM SUSP 30 ML UDC PO PRN (15:13)
[2020-09-09] MEDS ORDERED: POLYETHYLENE (MIRALAX) 17 GM PACK PO PRN (15:13)
[2020-09-09] MEDS ORDERED: Heparin IV Low Dose *NO* Bolus IV SCH (15:30)
[2020-09-09] MEDS ORDERED: PHYTONADIONE 5 MG in SODIUM CHLORIDE 0.9% 50 ML IV ONE (15:30)
[2020-09-09] MEDS ORDERED: PIPERACILLIN/TAZOBACTAM 3.375 GM in DEXTROSE 5% 100 ML IV ONE (15:30)
--- NOTE | 2020-09-09 15:50 | Surgery Consultation ---
Date of Consultation September 09, 2020 Assessment & Plan (1) Cholangitis: 85 year-old male who had outpatient EGD/EUS today by Dr. Ibarra found to have cholelithiasis, choledocholithiasis, and cholangitis on EUS. Patient being admitted for ERCP tomorrow as unable to perform today given INR of 2.0 (Coumadin for AVR). Plan: Plan for combined ERCP+ laparoscopic cholecystectomy with Dr. Ibarra and Dr. Fry. Informed consent obtained for laparoscopic cholecystectomy by Dr. Fry IV Zosyn IV Heparin Drip stop at 2 am Reverse coumadin with Vitamin K NPO after midnight Discussed with Dr. Fry who agrees with above. (2) Cholelithiasis: History of Present Illness Reason for Consultation: Cholelithiasis, Cholangitis, combined ERCP and cholecystectomy Requesting Physician: Dr. Ibarra Attending Physician: Kavitha Winslow MD History of Present Illness Anthony is a 85 year-old male who had an outpatient EGD and EUS today with Dr. Ibarra for dysphagia and elevated LFTs and was found to have gallstone packed gallbladder with choledocholithiasis as well as cholangitis. He has history of AVR on coumadin and INR was 2.0 today so ERCP is scheduled for tomorrow. Dr. Ibarra consulted our services for combined ERCP, laparoscopic cholecystectomy. Anthony states that he has never had any gallbladder troubles in the past. Denies of any postprandial abdominal pain. Was just having dysphagia prior to this work-up. Currently denies of any abdominal pain. Allergies Allergy/AdvReac Type Severity Reaction Status Date / Time Sulfa (Sulfonamide AdvReac Intermediate Unknown Unverified 09/01/20 14:25 Antibiotics) Home Medications Medication Instructions Recorded Confirmed Type ascorbic acid (vitamin C) [Vitamin 500 mg PO QAM #0 03/28/17 09/09/20 History C] coQ10 (ubiquinol) 200 mg PO QAM #0 03/28/17 09/09/20 History lisinopril 10 mg PO QAM #0 tab 03/28/17 09/09/20 History metoprolol tartrate 25 mg PO QAM #0 tab 03/28/17 09/09/20 History cholecalciferol (vitamin D3) 1,000 unit PO QAM 02/08/20 09/09/20 History [Vitamin D3] loratadine 10 mg PO QAM 02/08/20 09/09/20 History omega 0-unc-pwe-fish oil [Fish Oil] 1 cap PO QAM 02/08/20 09/09/20 History vitamin B complex 1 tab PO QAM 02/08/20 09/09/20 History aspirin 81 mg PO QAM #0 tab 02/15/20 09/09/20 Rx gabapentin 100 mg PO TID 07/02/20 09/09/20 History omeprazole 20 mg PO QAM 07/02/20 09/09/20 History sertraline 50 mg PO QAM 07/02/20 09/09/20 History acetaminophen [Tylenol 8 Hour] 650 mg PO QID 07/23/20 09/09/20 History melatonin 3 mg PO DAILY@1999 PRN 07/23/20 09/09/20 History warfarin [Coumadin] 7.5 mg PO DAILY@199907/23/20 09/09/20 History rosuvastatin 20 mg PO Q2D 09/01/20 09/09/20 History Patient History Medical History (Updated 09/09/20 @ 15:52 by Cyndi Vides PA-C) Aortic valve disease 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 Father , 77 Myocardial infarction Brother Diabetes Social History (Updated 09/09/20 @ 15:07 by Karine Bearden PA-C) Smoking Status: Never smoker Tobacco Type: Smokeless Tobacco (Dip or Chew) Second Hand Exposure: No; Do You Dip or Chew Tobacco: Yes; Hx Alcohol Use: Yes Alcohol type: beer and wine Hx Substance Use: No Preferred Language: Norwegian Communication Ability: Effective Chief Order Dispatcher Required: No Beliefs That Will Affect Care: None marital status: / Current Living Situation: Long-Term Current Living Situation Comment: AT [facility] Other Information That Helps Us Care for You: No Feels Safe at Home: Yes Safety Concerns: Feels Safe At This Time Assistive Devices: Walker and Wheelchair Review of Systems Review of Systems: All systems reviewed & are unremarkable except as noted in HPI & below Physical Exam Constitutional: WD/WN, vitals as above Respiratory: normal respiratory effort, lungs clear to auscultation Cardiovascular: Rate/Rhythm: + irregularly irregular Gastrointestinal (Abdomen): Inspection/Auscultation: abdomen normal to inspection (abdomen is soft, nontender, no rigidity, guarding, rebound) Skin: no rashes, warm and dry Psychiatric: A+Ox3, euthymic affect Results & Data ([facility]) Vital Signs (Past 12 Hours) Vital Signs Temp Pulse Pulse Resp BP BP Pulse Ox 09/09/20 15:17 36.5 C 57 L 16 166/81 H 96 09/09/20 15:00 36.7 C 69 18 156/74 H 91 09/09/20 14:50 49 L 16 134/83 95 09/09/20 14:35 58 L 15 141/71 H 92 09/09/20 14:20 52 L 16 137/63 95 09/09/20 14:05 51 L 15 135/69 93 09/09/20 13:50 36.3 C L 54 L 16 126/69 94 09/09/20 13:40 59 L 18 136/63 95 09/09/20 13:30 60 20 134/73 97 09/09/20 13:20 65 15 123/63 99 09/09/20 13:11 36.2 C L 58 L 16 128/63 98 09/09/20 10:50 36.5 C 56 L 18 136/77 97 Laboratory Results 09/09/20 Range/Units 10:31 PT 20.1 H (9.0-12.0) Seconds INR 2.0 H (0.9-1.1) APTT 32.9 H (21.0-31.0) Seconds PTT Ratio 1.2
[2020-09-09] MEDS: HEPARIN SODIUM/DEXTROSE 25,000 UNITS/500 ML BAG IV SCH (16:24)
[2020-09-09] MEDS: PIPERACILLIN/TAZOBACTAM 3.375 GM in DEXTROSE 5% 100 ML IV SCH (21:05)
[2020-09-09 22:59] LABS: Partial Thromboplastin Ratio 1.5
[2020-09-10] MEDS ORDERED: LORazepam 0.25 MG/0.5 ML VIAL IV STA (00:29)
[2020-09-10] MEDS: PIPERACILLIN/TAZOBACTAM 3.375 GM in DEXTROSE 5% 100 ML IV SCH ×3 (06:01→22:25)
[2020-09-10 06:06] LABS: Hematocrit (blood only) 34.2 % (42-52); Hemoglobin 10.5 g/dL (14.0-18.0); Mean Corpuscular Hemoglobin 23.7 pg (25-34); Mean Corpuscular Hgb Conc 30.7 g/dL (32-36); Mean Corpuscular Volume 77.2 fL (80-100); Mean Platelet Volume 9.4 fL (7.4-10.4); Platelet Count 193 K/uL (130-400); RDW Coefficient of Variation 17.7 % (11.5-14.5); RDW Standard Deviation 50.3 fL (36.4-46.3); Red Blood Count 4.43 M/uL (4.7-6.1)
[2020-09-10 06:25] LABS: INR 1.5 (0.9-1.1); Prothrombin Time 15.3 Seconds (9.0-12.0)
[2020-09-10 06:47] LABS: Albumin Level 3.2 gm/dl (3.4-5.0); BUN Creatinine Ratio 25.8 (10-20); Creatinine Clr Calc Pharmacy 79.7 ml/min; Est GFR (Non-African American) 87.2; Potassium 4.1 mmol/L (3.5-5.1)
[2020-09-10 06:49] LABS: Bilirubin,Total 1.6 mg/dl (0.2-1); Globulin 3.2 gm/dl (2.5-4.0); Total Protein 6.4 gm/dl (6.4-8.2)
--- NOTE | 2020-09-10 07:38 | Surgery Progress Note ---
Date of Service September 10, 2020 Assessment & Plan (1) Cholelithiasis: will plan lap norma post ERCP for cholelithiasis (2) Cholangitis: Admission and Anticipated Discharge Date Admission Date: September 09, 2020 Subjective No complaints Review of Systems Constitutional: no fever and no chills Respiratory: no cough and no dyspnea Cardiovascular: no chest pain Gastrointestinal: + abdominal pain; no nausea and no vomiting Physical Exam Constitutional: + not well developed and + not well nourished Neck: trachea midline Respiratory: normal respiratory effort, lungs clear to auscultation Cardiovascular: Rate/Rhythm: regular rate and regular rhythm Gastrointestinal (Abdomen): Inspection/Auscultation: abdomen normal to inspection and normal bowel sounds; abdomen not distended Percussion/Palpation: + abdomen tender Skin: no rashes, warm and dry no jaundice Results & Data ([facility]) Vital Signs (Past 12 Hours) Vital Signs Temp Pulse Pulse Pulse Resp BP Pulse Ox 09/10/20 07:35 36.7 C 71 18 131/79 99 09/10/20 07:22 103 H 09/10/20 02:40 36.4 C L 92 H 18 161/86 H 93 09/09/20 23:16 36.5 C 92 H 17 163/86 H 96
--- NOTE | 2020-09-10 08:12 | Anesthesiology Consultation ---
Date of Service September 10, 2020 Patient underwent EUS yesterday. On intubation noted to have friable tissue in oropharynx, however was able to be intubated without incident. Assessment & Plan (1) Encounter for pre-operative examination: (2) Encounter for pre-operative examination: History Surgery Operation Date: 09/09/20 10:05 Proposed Procedures p Esophagogastroduodenoscopy - Andrea Ibarra MD s Endoscopic Ultrasonography Upper - Andrea Ibarra MD Operation Date: 09/09/20 11:25 Proposed Procedures p Esophagogastroduodenoscopy, - Andrea Ibarra MD s Upper Endoscopic Ultrasonography - Andrea Ibarra MD Operation Date: 09/10/20 10:00 Proposed Procedures p Endoscopic Retrograde Cholangiopancreatogram - Andrea Ibarra MD s Laparoscopic Cholecystectomy - Watson Fry MD Height/Weight Height: 5 ft 9 in Weight: 74 kg Allergies Allergy/AdvReac Type Severity Reaction Status Date / Time Sulfa (Sulfonamide AdvReac Intermediate Unknown Unverified 09/01/20 14:25 Antibiotics) Medications Home Medications Medication Instructions Recorded Confirmed Last Taken ascorbic acid (vitamin C) [Vitamin 500 mg PO QAM #0 03/28/17 09/09/20 09/08/20 08:00 C] coQ10 (ubiquinol) 200 mg PO QAM #0 03/28/17 09/09/20 09/08/20 08:00 lisinopril 10 mg PO QAM #0 tab 03/28/17 09/09/20 09/09/20 08:00 metoprolol tartrate 25 mg PO QAM #0 tab 03/28/17 09/09/20 09/09/20 08:00 cholecalciferol (vitamin D3) 1,000 unit PO QAM 02/08/20 09/09/20 09/08/20 08:00 [Vitamin D3] loratadine 10 mg PO QAM 02/08/20 09/09/20 09/08/20 08:00 omega 7-xnn-kyf-fish oil [Fish Oil] 1 cap PO QAM 02/08/20 09/09/20 09/08/20 08:00 vitamin B complex 1 tab PO QAM 02/08/20 09/09/20 09/08/20 08:00 aspirin 81 mg PO QAM #0 tab 02/15/20 09/09/20 09/08/20 08:00 gabapentin 100 mg PO TID 07/02/20 09/09/20 09/09/20 08:00 omeprazole 20 mg PO QAM 07/02/20 09/09/20 09/08/20 06:00 sertraline 50 mg PO QAM 07/02/20 09/09/20 09/08/20 08:00 acetaminophen [Tylenol 8 Hour] 650 mg PO QID 07/23/20 09/09/20 09/09/20 08:00 melatonin 3 mg PO DAILY@1999 PRN 07/23/20 09/09/20 09/08/20 20:00 warfarin [Coumadin] 7.5 mg PO DAILY@199907/23/20 09/09/20 09/08/20 20:00 rosuvastatin 20 mg PO Q2D 09/01/20 09/09/20 09/08/20 08:00 Active Medications Generic Name Dose Route Start Last Admin Trade Name Delvin PRN Reason Stop Dose Admin Heparin Sodium/Dextrose 25,000 units in 500 mls @ 0 mls/hr 09/09/20 16:00 09/10/20 02:00 Heparin Sodium/Dextrose IV 10/09/20 15:59 0 units/hr .Q0M PATTIE 0 mls/hr Titration Protocol 0 UNITS/HR Piperacillin Sod/Tazobactam 115 mls @ 28.75 mls/hr 09/09/20 22:00 09/10/20 10:03 Sod 3.375 gm/ Dextrose IV 09/11/20 21:59 Infused Q8H PATTIE Infusion Protocol NPO Date Last Intake of Fluids: 09/08/20 Time Last Intake of Fluids: 18:00 Date Last Intake of Solids: 09/08/20 Time Last Intake of Solids: 18:00 Past Medical History Medical History Aortic valve disease 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 Father , 77 Myocardial infarction Brother Diabetes Past Surgical History Surgical History Aortic valve replaced (during CABG- 2002) History of hip surgery Right hip nailin07/03/20: Grade view 2, MAC#3, ETT 7.5 at [facility] S/P CABG x 5 2002 Social History Smoking Status: Never smoker Do You Dip or Chew Tobacco: Yes Hx Alcohol Use: Yes Alcohol type: beer and wine alcohol intake frequency: a few times a month Hx Substance Use: No Physical Exam Vital Signs Last Vital Signs Temp 36.7 C 09/10/20 07:35 Pulse 71 09/10/20 07:35 Resp 18 09/10/20 07:35 BP 131/79 09/10/20 07:35 Pulse Ox 99 09/10/20 07:35 Testing Laboratory Results 09/10/20 05:54 09/10/20 05:54 PT 15.3 Seconds (9.0-12.0) H 09/10/20 05:54 INR 1.5 (0.9-1.1) H 09/10/20 05:54 APTT 43.0 Seconds (21.0-31.0) H 09/09/20 22:39 Electrocardiogram Date: 07/23/20 A. fib with slow ventricular response at 55bpm. LAD. NS IVCD. Chest X-Ray Date: 07/23/20 IMPRESSION: Cardiomegaly. Small right pleural effusion with right lower lung zone airspace opacities, possibly representing a pneumonia. Clinical and radiographic follow-up is recommended. Echocardiogram Date: 10/14/17 Normal LV systolic function, EF 50-55%. Akinesis of the anteroapical and anteroseptal rodney, otherwise normal wall motion. Grade 1 DD. Bi-leaflet aortic prosthesis. No regurg. The gradient is normal for this prosthetic aortic valve. Mild TR. Mild LAE. Moderate enlargement of the ascending aorta.
[2020-09-10] MEDS ORDERED: INDOMETHACIN 50 MG SUPP PR ONE (10:14)
[2020-09-10] MEDS ORDERED: BUPIVACAINE/EPINEPHRINE 0.5% MPF 1:200,000 30 ML VIAL ONE (10:14)
--- NOTE | 2020-09-10 10:38 | History & Physical Bridge Note ---
Date of Service September 10, 2020 History & Physical Bridge Note I have examined the patient, reviewed the History & Physical and in the interval since the performance of the History & Physical I have noted the following changes of clinical significance: no changes noted EUS with FNA of the pancreas cyst and ERCP for cholangitis.
[2020-09-10] MEDS ORDERED: IOVERSOL 50ml IV ONE (11:03)
[2020-09-10] MEDS ORDERED: MIDAZOLAM HCL 1 MG/ML 2ML VIAL ONE (11:18)
[2020-09-10] MEDS ORDERED: PROPOFOL IV EMULSION 10 MG/ML 20 ML VIAL IV ONE (11:18)
[2020-09-10] MEDS ORDERED: LIDOCAINE HCL 2% 2 ML VIAL/AMP(20MG/ML) INFIL ONE (11:18)
[2020-09-10] MEDS ORDERED: ONDANSETRON INJ 2 MG/ML 2 ML VIAL ONE (11:18)
[2020-09-10] MEDS ORDERED: fentaNYL citrate 100 MCG/2 ML VIAL ONE (11:18)
[2020-09-10] MEDS ORDERED: ROCURONIUM BROMIDE 10 MG/ML 5 ML VIAL IV ONE (11:18)
--- NOTE | 2020-09-10 12:24 | Operative Report ---
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 Operation Date: 09/10/20 10:00 Pre-Op Diagnosis: CHOLANGITIS Post-Op Diagnosis: CHOLANGITIS I identified the patient and participated in the time-out.: Yes Procedure Operation Date: 09/09/20 10:05 <No data on this case meets the specified criteria> Operation Date: 09/09/20 11:25 Actual Procedures p Esophagogastroduodenoscopy with Esophageal dilation(Not Applicable) - Andrea Ibarra MD s Upper Endoscopic Ultrasonography(Not Applicable) - Andrea Ibarra MD Operation Date: 09/10/20 10:00 Actual Procedures p Endoscopic Retrograde Cholangiopancreatogram, endoscopic ultrasound(Not Applicable) - Andrea Ibarra MD s Laparoscopic Cholecystectomy(Not Applicable) - Watson Fry MD Surgeon Andrea Ibarra MD Payroll Consultant None Estimated Blood Loss 0 Findings See Below (CBD stones removed, pus drained, stent placed) Specimens FNA of pancreas cyst Description of Procedure EUS/ERCP I attest to the content of the Intraoperative Record and any orders documented therein. Any exceptions are noted below.
--- NOTE | 2020-09-10 12:30 | GI REPORT ---
Patient Name: Anthony Cadena Procedure Date: 09/10/2020 10:37 AM Date of : 1935 Admit Type: Inpatient Age: 85 Gender: Male Attending MD: Andrea Ibarra MD Procedure: Upper EUS Providers: Andrea Ibarra MD Referring MD: Peace Durant Do Indications: Pancreatic cyst on MRI Medicines: General Anesthesia Complications: No immediate complications. Estimated Blood Loss: Estimated blood loss: none. Procedure: Pre-Anesthesia Assessment: - Prior to the procedure, a History and Physical was performed, and patient medications, allergies and sensitivities were reviewed. The patient's tolerance of previous anesthesia was reviewed. - The risks and benefits of the procedure and the sedation options and risks were discussed with the patient. All questions were answered and informed consent was obtained. - Patient identification and proposed procedure were verified prior to the procedure by the physician and the nurse. The procedure was verified in the procedure room. - Pre-procedure physical examination revealed no contraindications to sedation. After obtaining informed consent, the endoscope was passed under direct vision. Throughout the procedure, the patient's blood pressure, pulse, and oxygen saturations were monitored continuously. The scope was introduced through the mouth, and advanced to the second part of duodenum. The upper EUS was accomplished without difficulty. The patient tolerated the procedure well. Findings: ENDOSONOGRAPHIC FINDING: : An anechoic lesion suggestive of a cyst was identified in the pancreatic body. The lesion measured 10 mm in maximal cross-sectional diameter. There was a single compartment without septae. The outer wall of the lesion was thin. There was no associated mass. There was no internal debris within the fluid-filled cavity. Diagnostic needle aspiration for fluid was performed. Color Doppler imaging was utilized prior to needle puncture to confirm a lack of significant vascular structures within the needle path. One pass was made with the 22 gauge needle using a transgastric approach. A stylet was used. The amount of fluid collected was 1 mL. The fluid was yellow and viscous. Sample(s) were sent for cytology and CEA. Verification of patient identification for the specimen was done by the physician and nurse using the patient's name and date. Impression: - A 10 mm cyst was seen in the pancreatic body. Fine needle aspiration for fluid performed. Recommendation: - Await cytology results. - Perform an ERCP today. Andrea Ibarra MD 09/10/2020 12:30:21 PM This report has been signed electronically. Note Initiated On: 09/10/2020 10:37 AM Number of Addenda: 0 I attest to the content of the Intraoperative Record and orders documented therein, exceptions below {[id number]}
--- NOTE | 2020-09-10 12:39 | GI REPORT ---
Patient Name: Anthony Cadena Procedure Date: 09/10/2020 10:36 AM Date of : 1935 Admit Type: Inpatient Age: 85 Gender: Male Attending MD: Andrea Ibarra MD Procedure: ERCP Providers: Andrea Ibarra MD Referring MD: Peace Durant Do Indications: Abnormal endoscopic ultrasound of the biliary system, For therapy of bile duct stone(s), For therapy of ascending cholangitis Medicines: General Anesthesia Complications: No immediate complications. Estimated Blood Loss: Estimated blood loss: none. Procedure: Pre-Anesthesia Assessment: - Prior to the procedure, a History and Physical was performed, and patient medications, allergies and sensitivities were reviewed. The patient's tolerance of previous anesthesia was reviewed. - The risks and benefits of the procedure and the sedation options and risks were discussed with the patient. All questions were answered and informed consent was obtained. - Patient identification and proposed procedure were verified prior to the procedure by the physician and the nurse. The procedure was verified in the procedure room. - Pre-procedure physical examination revealed no contraindications to sedation. After obtaining informed consent, the scope was passed under direct vision. Throughout the procedure, the patient's blood pressure, pulse, and oxygen saturations were monitored continuously. The Scope was introduced through the mouth, and advanced to the duodenum and used to inject contrast into the bile duct. The ERCP was accomplished without difficulty. The patient tolerated the procedure well. Findings: The gambling floor supervisor film was normal. The esophagus was successfully intubated under direct vision. The scope was advanced to a normal major papilla in the descending duodenum without detailed examination of the pharynx, larynx and associated structures, and upper GI tract. The upper GI tract was grossly normal. The major papilla was located partially within a diverticulum. A 0.035 inch straight standard wire was passed into the biliary tree. The Fusion OMNI sphincterotome was passed over the guidewire and the bile duct was then deeply cannulated. Contrast was injected. I personally interpreted the bile duct images. Ductal flow of contrast was adequate. Image quality was adequate. Contrast extended to the main bile duct. Opacification of the entire biliary tree except for the gallbladder was successful. The maximum diameter of the ducts was 8 mm. The lower third of the main bile duct contained filling defect(s) thought to be a stone. Biliary sphincterotomy was made with a monofilament traction (standard) sphincterotome using ERBE electrocautery. There was no post-sphincterotomy bleeding. The biliary tree was swept with a 12 mm balloon starting at the bifurcation. Pus was swept from the duct. Three stones were removed. No stones remained. One 10 Fr by 7 cm plastic biliary stent with a single external flap and a single internal flap was placed into the common bile duct. Bile flowed through the stent. The stent was in good position. Indomethacin 100 mg was given via suppository to decrease the risk of post-ERCP pancreatitis (PEP). PD was not cannulated. Impression: - Choledocholithiasis was found. Complete removal was accomplished by biliary sphincterotomy and balloon extraction. - Ascending cholangitis was found. - One plastic biliary stent was placed into the common bile duct. Recommendation: - [facility]. - Repeat ERCP in 4 weeks to remove stent. - Clear liquid diet. - ABx to complete a 7 days course, be careful with interaction with Coumadin, may use Augmentin. - Proceed with Lap norma today. - Can resume Heparin drip with no bolus after 6 hrs from my point of view, if no issues then resume Coumadin after 1 - 2 days. - Recall GI if needed. Andrea Ibarra MD 09/10/2020 12:39:01 PM This report has been signed electronically. Note Initiated On: 09/10/2020 10:36 AM Number of Addenda: 0 I attest to the content of the Intraoperative Record and orders documented therein, exceptions below {[id number]}
[2020-09-10] MEDS ORDERED: ceFAZolin 2000MG 2,000 MG/15 ML SYR IV ONE (13:00)
[2020-09-10] MEDS ORDERED: LABETALOL HCL IV 5 MG/ML 20ML IV ONE (13:10)
[2020-09-10] MEDS ORDERED: SURGICEL ABSORB HEMOSTAT 2IN X 14IN TOP ONE ×2 (13:13→13:16)
--- NOTE | 2020-09-10 13:31 | Post Operative Brief Note ---
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 Operation Date: 09/10/20 10:00 Pre-Op Diagnosis: acute cholecystitis Post-Op Diagnosis: acute cholecystitis I identified the patient and participated in the time-out.: Yes Procedure Operation Date: 09/09/20 10:05 <No data on this case meets the specified criteria> Operation Date: 09/09/20 11:25 Actual Procedures p Esophagogastroduodenoscopy with Esophageal dilation(Not Applicable) - Andrea Ibarra MD s Upper Endoscopic Ultrasonography(Not Applicable) - Andrea Ibarra MD Operation Date: 09/10/20 10:00 Actual Procedures p Endoscopic Retrograde Cholangiopancreatogram, endoscopic ultrasound(Not Applicable) - Andrea Ibarra MD s Laparoscopic Cholecystectomy(Not Applicable) - Watson Fry MD Surgeon Watson Fry MD Lettuce Cutter None Estimated Blood Loss 40 Findings Consistent with Post-Op Diagnosis
--- NOTE | 2020-09-10 13:38 | Fluoroscopy Report ---
[place] ERCP biliary ductal HISTORY: 85 years-old Male ERCP DONE IN THE [facility].R. COMPARISON: CT abdomen pelvis 10/13/2017 TECHNIQUE: 4 spot fluoroscopic images of the abdominal right upper quadrant were obtained utilizing 3 6.1 seconds fluoroscopy time. FINDINGS: Endoscope is noted within the duodenum. Cannulation of the common bile duct with retrograde injection of contrast. There is no significant intrahepatic biliary ductal dilation. Tapered narrowing is note d of the distal common bile duct. Opacified cystic duct with minimal contrast suggested within the re gion of the gallbladder on image 4. Subsequent images demonstrate balloon sweep of the gallbladder wi th interval placement of a common bile duct stent which appears to be in satisfactory positioning. No definite biliary filling defects identified. Contrast is noted within the duodenum. IMPRESSION: Fluoroscopic assistance as above. Please see procedural report for further details. ACT 112: Negative or not required by law. The above report was generated using voice recognition software. It may contain grammatical, syntax o r spelling errors. Electronically signed by: Miguelangel Patel M.D. 09/10/2020 1:36 PM
--- NOTE | 2020-09-10 13:52 | Operative Report (OR) ---
DATE OF OPERATION: 09/10/2020 PREOPERATIVE DIAGNOSES: Common bile duct stones, cholangitis. POSTOPERATIVE DIAGNOSES: 1. Common bile duct stones. 2. Cholangitis. 3. Acute cholecystitis. PROCEDURE PERFORMED: Laparoscopic cholecystectomy. SURGEON: Watson Fry MD. POLE SHAVER HELPER: None. ANESTHESIA: General endotracheal with 0.5% Marcaine with epinephrine as local. ESTIMATED BLOOD LOSS: 40 mL DRAINS: None. COMPLICATIONS: None. SPECIMENS: Sent for pathologic evaluation. INDICATION FOR PROCEDURE: This is an 85-year-old male admitted with common bile duct stones and cholangitis. He was admitted, IV hydrated, put on antibiotics, taken to the OR for ERCP. After his ERCP was done, we talked to him about doing a laparoscopic cholecystectomy at the same time. We talked about the risks in detail. He understands all this. DESCRIPTION OF PROCEDURE: The patient was in the OR after his ERCP was placed in the supine position. His abdomen was prepped and draped in normal sterile fashion. He had previously undergone excellent general endotracheal anesthesia. A transverse supraumbilical incision was made. Dissection was taken down to identify his anterior fascia. Two Vicryls were placed in either side of midline. The midline was incised sharply. A Milka trocar was then inserted. Good pneumoperitoneum was achieved to 15 mmHg pressure. Good diagnostic lap was performed. He had some edema in its wall consistent with acute cholecystitis. An 11 subxiphoid and two 5 lateral ports were placed in normal fashion. He was placed in head up and rolled to the left. His gallbladder was tense and therefore, it was aspirated, his bile appeared to be hydropic. The grasper was used to grasp and retract the fundus superiorly. The neck was grasped and retracted laterally. Peritoneal attachments were taken down. Cystic duct and cystic artery were identified and skeletonized. A medial and lateral window was created in the gallbladder and gallbladder fossa showing the critical view. Once this was seen, 4 clips were placed proximally in the cystic duct, 1 proximally and distally. Once the cystic duct was transected. Two clips were placed on the cystic artery proximally, one distally and the cystic artery was transected. Electrocautery hook was then used to remove the gallbladder from the gallbladder fossa. Small hole was made in the gallbladder with some spillage of bile and a few stones. Once the gallbladder was completely removed. Endobag was used to remove the gallbladder and as many stones as possible. Gallbladder was then brought out and sent for pathologic evaluation. The abdomen was then irrigated out and suctioned clear. There were some areas on his gallbladder fossa, which were bleeding. These were cauterized. There was about 40 mL of blood loss. Because of his somewhat fatty liver and his previous Coumadin use Surgicel was used to place on the gallbladder fossa to help prevent any further bleeding. Abdomen was then suctioned out to clear, the ports were removed and pneumoperitoneum was decompressed. A 0 Vicryl was used to close the fascial defect in the supraumbilical incision. A 0.5% Marcaine with epinephrine local was used to create a local field block. Interrupted Vicryl was used to close the skin. Steri-Strips and benzoin were used to force incisions. Sterile dressings were applied. The patient tolerated the procedure without complications, sent to postop recovery area for a period of observation and will be sent to floor for his care. I attest to the content of the Intraoperative Record and any orders documented therein. Any exception s are noted below.
--- NOTE | 2020-09-10 14:20 | Anesthesiology Progress Note ---
Date of Service September 10, 2020 Anesthesia Post Procedure Vital Signs Vital Signs: Temp Pulse Pulse Pulse Resp BP BP 09/10/20 14:10 48 L 22 148/80 H 09/10/20 14:00 39 L 19 163/87 H 09/10/20 13:50 36 L 15 161/74 H 09/10/20 13:43 36.7 C 50 L 20 150/86 H 09/10/20 07:35 36.7 C 71 18 131/79 09/10/20 07:22 103 H 09/10/20 02:40 36.4 C L 92 H 18 161/86 H 09/09/20 23:16 36.5 C 92 H 17 163/86 H 09/09/20 19:33 36.6 C 79 16 147/80 H 09/09/20 15:17 36.5 C 57 L 16 166/81 H 09/09/20 15:00 36.7 C 69 18 156/74 H 09/09/20 14:50 49 L 16 134/83 09/09/20 14:35 58 L 15 141/71 H 09/09/20 14:20 52 L 16 137/63 Pulse Ox 09/10/20 14:10 100 09/10/20 14:00 100 09/10/20 13:50 100 09/10/20 13:43 99 09/10/20 07:35 99 09/10/20 07:22 09/10/20 02:40 93 09/09/20 23:16 96 09/09/20 19:33 96 09/09/20 15:17 96 09/09/20 15:00 91 09/09/20 14:50 95 09/09/20 14:35 92 09/09/20 14:20 95 Transfer of Care Handoff Completed per policy Notes Mental Status: alert / awake / arousable and participated in evaluation Patient Amnestic to Procedure: Yes Nausea / Vomiting: adequately controlled Pain: adequately controlled Airway Patency, RR, SpO2: stable & adequate BP & HR: stable & adequate Hydration State: stable & adequate Anesthetic Complications: no major complications apparent and Pt Satisfied with anesthetic care
[2020-09-10] MEDS ORDERED: MoRPHine SULFATE 4 MG/ML 1 ML CARP\\VIAL IV PRN (14:59)
[2020-09-10] MEDS ORDERED: MoRPHine SULFATE 2 MG/ML CARP IV PRN (14:59)
[2020-09-10] MEDS ORDERED: oxyCODONE/ACETAMINOPHEN 5mg/325mg TAB PO PRN ×3 (14:59→18:10)
[2020-09-10] MEDS: D5W AND 1/2NSS + 20MEQ KCL 20 MEQ/1,000 ML BAG IV SCH (15:49)
[2020-09-10] MEDS: HEPARIN SODIUM/DEXTROSE 25,000 UNITS/500 ML BAG IV SCH ×2 (18:12→19:24)
--- NOTE | 2020-09-10 18:18 | Hospitalist Progress Note ---
Date of Service September 10, 2020 Assessment & Plan (1) Acute cholangitis due to calculus of bile duct with obstruction: Pt with known elevated transaminases and gallstones underwent EUS on 09/09 and a CBD stone was seen with a thickened bile duct wall and pus flowing out of the ampulla. Clinical picture was consistent with acute cholangitis and he was admitted to the hospitalist service and started on Zosyn. Overnight INR was reversed with vitamin K and ERCP performed today with CBD stent placement followed by laparoscopic cholecystectomy with Dr. Fry. He is being bridged cautiously with heparin to warfarin in two days time, to start only as long as no significant bleeding on the heparin. Indication for anticoagulation with bridging therapy is a mechanical aortic valve placed in 2002. Cont Zosyn with likely transition to Augmentin as clinical picture improves. (2) Acute metabolic encephalopathy: Patient is currently disoriented but is easily directable and not agitated or appearing uncomfortable. Likely multifactorial etiology including hospital stay, post-operative state with recent anesthesia just a few hours ago, possible uncontrolled pain (will follow BP overnight or consider further if agitation develops), medications including narcotics and infection. This is in the setting of being in a geriatric age group with multiple comorbidities and recently worsening memory loss. Cont to monitor in the hospital. (3) Chronic atrial fibrillation: Pt with a h/o stroke and currently atrial fibrillation. Cont heparin drip set to restart tonight with ultimate bridge to warfarin in next two days as long as no bleeding issues on the heparin. Currently rate is controlled with Lopressor . Cont current management. (4) Abnormal ENT evaluation: Per Anesthesiology abnormal finding questionable mass of epiglottis and is recommending ENT evaluation as outpatient for laryngoscope (5) CAD (coronary artery disease): h/o CABG in the past. Cont medical management of CAD including crestor, lisinopril 10mg daily, Lopressor 25mg daily. ASA 81 held in setting of these procedures. warfarin/heparin as above. (6) HTN (hypertension): slightly elevated, however, this may be related to encephalopathic state or postoperative pain/discomfort. Cont lisinopril 10mg daily per home regimen. (7) Memory deficits: pt awaiting formal neuropysch eval for dementia, no formal dx recent MRI 08/2020 :No recent ischemia, hemorrhage, or other acute intracranial abnormality. Numerous infratentorial and supratentorial chronic lacunar infarcts. Many of these are associated with hemosiderin deposition. 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 Advanced global brain volume loss with extensive mainly confluent white matter T2/FLAIR hyperintensities, nonspecific findings most commonly associated with chronic microvascular ischemic disease. Son confirms baseline of A&O x 2 person and pace may require support person at bedside (8) DVT prophylaxis: heparin drip DNR/DNI Dispo-cont telemetry monitoring. [facility] Hospitalist Admission and Anticipated Discharge Date Admission Date: September 09, 2020 Subjective cc: cholangitis 2/2 choledocholithiasis he is s/p ERCP and lap norma today and is still under the effects of anesthesia to some extent. He is altered and states he is at the "diner." He is in no acute distress and exhibiting no increased work of breathing. He is following instructions and denies any pain at this time. Review of Systems Review of Systems: Unobtainable due to cognitive status Physical Exam Physical Exam: CONSTITUTIONAL: WNWD, vitals as above, generally well- appearing EYES: normal conjunctivae, no scleral icterus ENT: external ear and nose normal, MMM RESPIRATORY: clear to auscultation bilaterally, no crackles, rales or wheezes, normal respiratory effort CARDIOVASCULAR: regular rate and rhythm, S1 and 2 heard without murmurs, gallops or rubs, no JVD, no peripheral edema GASTROINTESTINAL: soft, multiple laparoscopic surgical incision sites present on abdomen that are covered with dressings that are clean, dry and intact. Slight bloody drainage to one mid-abdominal dressing but not soaked through. Nondistended, generally nontender abdomen. MUSCULOSKELETAL: head NCAT, moving all extremities equally. SKIN: warm and dry, surgical incisions as above. NEUROLOGIC: CN 2-12 grossly intact, PSYCHIATRIC: alert cooperative and disoriented at the moment. Results & Data Results & Data ([facility]) Vital Signs (Past 12 Hours) Vital Signs Temp Pulse Pulse Pulse Resp BP BP 09/10/20 17:32 35.7 C L 61 18 155/72 H 09/10/20 16:29 36.4 C L 53 L 16 144/70 H 09/10/20 15:24 36.4 C L 51 L 16 144/71 H 09/10/20 14:40 36.7 C 52 L 17 153/83 H 09/10/20 14:30 36.7 C 54 L 18 152/84 H 09/10/20 14:20 52 L 20 162/88 H 09/10/20 14:10 48 L 22 148/80 H 09/10/20 14:00 39 L 19 163/87 H 09/10/20 13:50 36 L 15 161/74 H 09/10/20 13:43 36.7 C 50 L 20 150/86 H 09/10/20 07:35 36.7 C 71 18 131/79 09/10/20 07:22 103 H Pulse Ox 09/10/20 17:32 100 09/10/20 16:29 100 09/10/20 15:24 98 09/10/20 14:40 100 09/10/20 14:30 99 09/10/20 14:20 100 09/10/20 14:10 100 09/10/20 14:00 100 09/10/20 13:50 100 09/10/20 13:43 99 09/10/20 07:35 99 09/10/20 07:22 Laboratory Results Short CBC 09/10/20 Range/Units 05:54 WBC 7.20 (4.8-10.8) K/uL Hgb 10.5 L (14.0-18.0) g/dL Hct 34.2 L (42-52) % Plt Count 193 (130-400) K/uL BMP 09/10/20 05:54 Sodium 137 Potassium 4.1 Chloride 106 Carbon Dioxide 23 BUN 18 Creatinine 0.69 Glucose 107 H Calcium 9.0 Liver Function 09/10/20 Range/Units 05:54 Total Bilirubin 1.6 H (0.2-1) mg/dl AST 63 H (15-37) U/L ALT 59 (12-78) U/L Alkaline Phosphatase 278 H (45-117) U/L Albumin 3.2 L (3.4-5.0) gm/dl Medications Administered Current Inpatient Medications Acetaminophen (Acetaminophen 325 Mg Tab) 650 mg PO Q4H PRN PRN Reason: Pain or Fever Stop: 10/09/20 15:12 Al Hydrox/Mg Hydrox/Simethicone (Aluminum/Magnesium Susp 30 Ml Udc) 15 ml PO Q4H PRN PRN Reason: Dyspepsia Stop: 10/09/20 15:12 Heparin Sodium/Dextrose (Heparin Iv Standard *No* Bolus) 1 ea IV Q30M [facility]; Protocol Stop: 10/10/20 19:59 Piperacillin Sod/Tazobactam (Sod 3.375 gm/ Dextrose) 115 mls @ 28.75 mls/hr IV Q8H [facility]; Protocol Stop: 09/11/20 21:59 Last Admin: 09/10/20 15:22 Dose: 28.8 mls/hr Documented by: Potassium Chloride/Dextrose/Sod Cl (D5w And 1/2nss + 20meq Kcl) 20 meq in 1,000 mls @ 50 mls/hr IV .Q20H [facility] Stop: 09/12/20 06:58 Last Admin: 09/10/20 15:49 Dose: 50 mls/hr Documented by: Heparin Sodium/Dextrose (Heparin Sodium/Dextrose) 25,000 units in 500 mls @ 0.02 mls/hr IV .Q24H [facility]; Protocol Stop: 10/10/20 19:59 Lisinopril (Lisinopril 10 Mg Tab) [facility] Stop: 10/11/20 08:59 Loratadine (Loratadine 10 Mg Tab) [facility] Stop: 10/11/20 08:59 Magnesium Hydroxide (Magnesium Hydroxide Susp 30 Ml Udc) 30 ml PO Q12H PRN PRN Reason: Constipation Stop: 10/09/20 15:12 Metoprolol Tartrate (Metoprolol Tartrate 25 Mg Tab) 25 mg PO [facility] Stop: 10/11/20 08:59 Miscellaneous Information (Piperacill/Tazobac Consult Active) 1 ea N/A UD PRN PRN Reason: Consult Stop: 10/09/20 15:12 Morphine Sulfate (Morphine Sulfate 2 Mg/Ml Carp) 2 mg IV Q3H PRN PRN Reason: Pain (1,2,3,4,5) & Pre PT Stop: 09/24/20 14:58 Morphine Sulfate (Morphine Sulfate 4 Mg/Ml 1 Ml Carp\\Vial) 4 mg IV Q3H PRN PRN Reason: Pain (6,7,8,9,10) Stop: 09/24/20 14:58 Ondansetron HCl (Ondansetron Inj 2 Mg/Ml 2 Ml Vial) 4 mg IV Q6H PRN PRN Reason: Nausea Stop: 10/09/20 15:12 Oxycodone/Acetaminophen (Oxycodone/Acetaminophen 5mg/325mg Tab) 1 tab PO Q4H PRN PRN Reason: Severe Pain Stop: 09/24/20 14:58 Pantoprazole Sodium (Pantoprazole 40 Mg Tab) 40 mg PO QAM [facility]; Protocol Stop: 10/11/20 08:59 Polyethylene Glycol (Polyethylene (Miralax) 17 Gm Pack) 17 gm PO DAILY PRN PRN Reason: Constipation Stop: 10/09/20 15:12 Rosuvastatin Calcium (Rosuvastatin Calcium 20 Mg Tab) 20 mg PO Q2D [facility] Stop: 10/10/20 20:59 Sertraline HCl (Sertraline Hcl 50 Mg Tablet) 50 mg PO QAM [facility] Stop: 10/11/20 08:59
[2020-09-10] MEDS: ROSUVASTATIN CALCIUM 20 MG TAB PO SCH (19:36)
[2020-09-10] MEDS ORDERED: Heparin IV Standard *NO* Bolus IV SCH (20:00)
[2020-09-11 01:48] LABS: Hematocrit (blood only) 33.3 % (42-52); Hemoglobin 10.5 g/dL (14.0-18.0); Mean Corpuscular Hemoglobin 24.4 pg (25-34); Mean Corpuscular Hgb Conc 31.5 g/dL (32-36); Mean Corpuscular Volume 77.4 fL (80-100); Mean Platelet Volume 9.8 fL (7.4-10.4); Platelet Count 196 K/uL (130-400); RDW Coefficient of Variation 17.9 % (11.5-14.5); RDW Standard Deviation 50.3 fL (36.4-46.3); White Blood Count 14.55 K/uL (4.8-10.8)
[2020-09-11 02:07] LABS: BUN Creatinine Ratio 24.6 (10-20); Calcium 8.6 mg/dl (8.5-10.1); Creatinine Clr Calc Pharmacy 67.9 ml/min; Est GFR (African American) 94.6; Est GFR (Non-African American) 81.6; Potassium 3.6 mmol/L (3.5-5.1)
[2020-09-11 02:10] LABS: Bilirubin,Total 1.5 mg/dl (0.2-1); Phosphorus 3.2 mg/dl (2.5-4.9)
[2020-09-11 02:35] LABS: Partial Thromboplastin Time 55.6 Seconds (21.0-31.0)
[2020-09-11] MEDS: ACETAMINOPHEN 325 MG TAB PO PRN (05:40)
[2020-09-11] MEDS: PIPERACILLIN/TAZOBACTAM 3.375 GM in DEXTROSE 5% 100 ML IV SCH ×2 (05:41→13:57)
[2020-09-11] MEDS: METOPROLOL TARTRATE 25 MG TAB PO SCH (07:52)
[2020-09-11] MEDS: lisinopril 10 MG TAB PO SCH (07:52)
[2020-09-11] MEDS: LORATADINE 10 MG TAB PO SCH (07:52)
[2020-09-11] MEDS: PANTOprazole 40 MG TAB PO SCH (07:53)
[2020-09-11] MEDS: SERTRALINE HCL 50 MG TABLET PO SCH (07:53)
--- NOTE | 2020-09-11 09:26 | Surgery Progress Note ---
Date of Service September 11, 2020 Assessment & Plan (1) Acute cholecystitis: s/p lap norma POD#1 doing well diet as tolerated F/U my office 2 weeks no strenuous activity 4 weeks shower OK pian meds per medical team Present on Admission?: Yes Admission and Anticipated Discharge Date Admission Date: September 09, 2020 Subjective pain controlled eating well working with PT, ambulate as tolerated Review of Systems Constitutional: no fever and no chills Respiratory: no dyspnea Cardiovascular: no chest pain Gastrointestinal: + abdominal pain; no nausea, no vomiting and no change in bowel habits Genitourinary: no dysuria Physical Exam Constitutional: well developed and well nourished; no acute distress Neck: trachea midline Respiratory: normal respiratory effort, lungs clear to auscultation Cardiovascular: RRR, no murmur, no edema Heart Sounds: + click Gastrointestinal (Abdomen): Inspection/Auscultation: abdomen normal to inspection and normal bowel sounds; abdomen not distended Percussion/Palpation: + abdomen tender and abdomen soft; no guarding and abdomen not rigid Musculoskeletal: Head/Neck/Chest: normocephalic and head atraumatic Results & Data ([facility]) Vital Signs (Past 12 Hours) Vital Signs Temp Pulse Pulse Pulse Resp BP Pulse Ox 09/11/20 08:00 70 09/11/20 06:59 36.4 C L 68 18 127/72 92 09/11/20 02:41 36.3 C L 70 18 132/76 95 09/11/20 00:07 71 09/10/20 22:48 36.4 C L 70 18 129/75 97
--- NOTE | 2020-09-11 10:57 | Gastroenterology Progress Note ---
Date of Service September 11, 2020 Assessment & Plan Admission and Anticipated Discharge Date Admission Date: September 09, 2020 Subjective Patient was seen and examined today, doing well, tolerated diet. On exam abdomen is soft. Labs reviewed. Recommend: OP ERCP in 4-6 weeks. Can discharge back to [place] from my point. Recall GI if needed. Results & Data ([facility]) Vital Signs (Past 12 Hours) Vital Signs Temp Pulse Pulse Resp BP Pulse Ox 09/11/20 08:00 70 09/11/20 06:59 36.4 C L 68 18 127/72 92 09/11/20 02:41 36.3 C L 70 18 132/76 95 09/11/20 00:07 71
[2020-09-11] MEDS: D5W AND 1/2NSS + 20MEQ KCL 20 MEQ/1,000 ML BAG IV SCH (12:00)
[2020-09-11] MEDS: HEPARIN SODIUM/DEXTROSE 25,000 UNITS/500 ML BAG IV SCH (14:23)
--- NOTE | 2020-09-11 16:13 | Hospitalist Progress Note ---
Date of Service September 11, 2020 Assessment & Plan (1) Acute cholangitis due to calculus of bile duct with obstruction: Pt with known elevated transaminases and gallstones underwent EUS on 09/09 and a CBD stone was seen with a thickened bile duct wall and pus flowing out of the ampulla. Clinical picture was consistent with acute cholangitis and he was admitted to the hospitalist service and started on Zosyn. Overnight INR was reversed with vitamin K and ERCP performed 09/[address] Ibarra with CBD stent placement followed by laparoscopic cholecystectomy with Dr. Fry. Heparin drip started 6 hrs postop and has been running overnight without bleeding issues. Patient is feeling well clinically. Will restart coumadin and switch his antibiotic to Augmentin. Cont heparin drip although when he is cleared to go back to the assisted from a case management standpoint, we can easily switch him to Lovenox for bridging if still needed at that time. Prefer heparin for now because he is POD 1 and we can shut it off quickly; it is not a bolus dose like Lovenox in this post-op patient who is elderly. (2) Acute metabolic encephalopathy: Resolved, Likely multifactorial etiology including hospital stay, post- operative state, medication side effects vs polypharmacy including narcotics, and infection. (3) Chronic atrial fibrillation: Pt with a h/o stroke and currently atrial fibrillation. Cont heparin drip bridge to warfarin (starting now) per plan as above. (4) Abnormal ENT evaluation: Per Anesthesiology abnormal finding questionable mass of epiglottis and is recommending ENT evaluation as outpatient for laryngoscope (5) CAD (coronary artery disease): h/o CABG in the past. Cont medical management of CAD including crestor, lisinopril 10mg daily, Lopressor 25mg daily. ASA 81 held in setting of these procedures. warfarin/heparin as above. (6) HTN (hypertension): slightly elevated, however, this may be related to encephalopathic state or postoperative pain/discomfort. Cont lisinopril 10mg daily per home regimen. (7) Memory deficits: pt awaiting formal neuropysch eval for dementia, no formal dx recent MRI 08/2020. No recent ischemia, hemorrhage, or other acute intracranial abnormality. Numerous infratentorial and supratentorial chronic lacunar infarcts. Many of these are associated with hemosiderin deposition. 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 Advanced global brain volume loss with extensive mainly confluent white matter T2/FLAIR hyperintensities, nonspecific findings most commonly associated with chronic microvascular ischemic disease. (8) DVT prophylaxis: heparin drip/warfarin DNR/DNI Dispo-cont telemetry monitoring. DO Lopez [facility] Hospitalist Admission and Anticipated Discharge Date Admission Date: September 09, 2020 Subjective cc: acute cholangitis with choledocholithiasis -patient is feeling great per his report -he reports tolerating his diet without issue -no bleeding reported and abdomen has no significant pain -patient states he was ambulating today with assistance with PT -he appears to be at his baseline mental status. Review of Systems Review of Systems: All systems reviewed & are unremarkable except as noted in Subjective Physical Exam Physical Exam: CONSTITUTIONAL: WNWD, vitals as above, generally well- appearing EYES: normal conjunctivae, no scleral icterus ENT: external ear and nose normal, MMM RESPIRATORY: clear to auscultation bilaterally, no crackles, rales or wheezes, normal respiratory effort CARDIOVASCULAR: regular rate and rhythm, S1 and 2 heard without murmurs, gallops or rubs, no JVD, no peripheral edema GASTROINTESTINAL: soft, multiple laparoscopic surgical incision sites present on abdomen that are covered with dressings that are clean, dry and intact. Nondistended, generally nontender abdomen. MUSCULOSKELETAL: head NCAT, moving all extremities equally. SKIN: warm and dry, surgical incisions as above. NEUROLOGIC: CN 2-12 grossly intact, PSYCHIATRIC: alert cooperative and disoriented at the moment. Results & Data Results & Data ([facility]) Vital Signs (Past 12 Hours) Vital Signs Temp Pulse Pulse Pulse Resp BP Pulse Ox 09/11/20 15:31 36.4 C L 78 18 115/72 95 09/11/20 11:24 36.2 C L 50 L 18 106/67 94 09/11/20 08:00 70 09/11/20 06:59 36.4 C L 68 18 127/72 92 Laboratory Results Short CBC 09/11/20 Range/Units 01:29 WBC 14.55 H (4.8-10.8) K/uL Hgb 10.5 L (14.0-18.0) g/dL Hct 33.3 L (42-52) % Plt Count 196 (130-400) K/uL BMP 09/11/20 01:29 Sodium 134 L Potassium 3.6 Chloride 103 Carbon Dioxide 26 BUN 20 H Creatinine 0.81 Glucose 103 H Calcium 8.6 Liver Function 09/11/20 Range/Units 01:29 Total Bilirubin 1.5 H (0.2-1) mg/dl AST 59 H (15-37) U/L ALT 53 (12-78) U/L Alkaline Phosphatase 223 H (45-117) U/L Albumin 3.0 L (3.4-5.0) gm/dl Medications Administered Current Inpatient Medications Acetaminophen (Acetaminophen 325 Mg Tab) 650 mg PO Q4H PRN PRN Reason: Pain or Fever Stop: 10/09/20 15:12 Last Admin: 09/11/20 05:40 Dose: 650 mg Documented by: Al Hydrox/Mg Hydrox/Simethicone (Aluminum/Magnesium Susp 30 Ml Udc) 15 ml PO Q4H PRN PRN Reason: Dyspepsia Stop: 10/09/20 15:12 Piperacillin Sod/Tazobactam (Sod 3.375 gm/ Dextrose) 115 mls @ 28.75 mls/hr IV Q8H [facility]; Protocol Stop: 09/11/20 21:59 Last Admin: 09/11/20 13:57 Dose: 28.8 mls/hr Documented by: Potassium Chloride/Dextrose/Sod Cl (D5w And 1/2nss + 20meq Kcl) 20 meq in 1,000 mls @ 50 mls/hr IV .Q20H [facility] Stop: 09/12/20 06:58 Last Admin: 09/11/20 12:00 Dose: 50 mls/hr Documented by: Heparin Sodium/Dextrose (Heparin Sodium/Dextrose) 25,000 units in 500 mls @ 26 mls/hr IV .[id number] [facility]; Protocol Stop: 10/10/20 19:59 Last Admin: 09/11/20 14:23 Dose: 1,300 units/hr, 26 mls/hr Documented by: Lisinopril (L[facility]opril 10 Mg Tab) [facility] Stop: 10/11/20 08:59 Last Admin: 09/11/20 07:52 Dose: 10 mg Documented by: Loratadine (Loratadine 10 Mg Tab) 10 mg PO QA [facility] Stop: 10/11/20 08:59 Last Admin: 09/11/20 07:52 Dose: 10 mg Documented by: Magnesium Hydroxide (Magnesium Hydroxide Susp 30 Ml Udc) 30 ml PO Q12H PRN PRN Reason: Constipation Stop: 10/09/20 15:12 Metoprolol Tartrate (Metoprolol Tartrate 25 Mg Tab) 25 mg PO [facility] Stop: 10/11/20 08:59 Last Admin: 09/11/20 07:52 Dose: 25 mg Documented by: Miscellaneous Information (Piperacill/Tazobac Consult Active) 1 ea N/A UD PRN PRN Reason: Consult Stop: 10/09/20 15:12 Morphine Sulfate (Morphine Sulfate 2 Mg/Ml Carp) 2 mg IV Q3H PRN PRN Reason: Pain (1,2,3,4,5) & Pre PT Stop: 09/24/20 14:58 Morphine Sulfate (Morphine Sulfate 4 Mg/Ml 1 Ml Carp\Vial) 4 mg IV Q3H PRN PRN Reason: Pain (6,7,8,9,10) Stop: 09/24/20 14:58 Ondansetron HCl (Ondansetron Inj 2 Mg/Ml 2 Ml Vial) 4 mg IV Q6H PRN PRN Reason: Nausea Stop: 10/09/20 15:12 Oxycodone/Acetaminophen (Oxycodone/Acetaminophen 5mg/325mg Tab) 1 tab PO Q4H PRN PRN Reason: Severe Pain Stop: 09/24/20 14:58 Pantoprazole Sodium (Pantoprazole 40 Mg Tab) 40 mg PO [facility]; Protocol Stop: 10/11/20 08:59 Last Admin: 09/11/20 07:53 Dose: 40 mg Documented by: Polyethylene Glycol (Polyethylene (Miralax) 17 Gm Pack) 17 gm PO DAILY PRN PRN Reason: Constipation Stop: 10/09/20 15:12 Rosuvastatin Calcium (Rosuvastatin Calcium 20 Mg Tab) 20 mg PO Q2D [facility] Stop: 10/10/20 20:59 Last Admin: 09/10/20 19:36 Dose: 20 mg Documented by: Sertraline HCl (Sertraline Hcl 50 Mg Tablet) 50 mg PO [facility] Stop: 10/11/20 08:59 Last Admin: 09/11/20 07:53 Dose: 50 mg Documented by:
[2020-09-11] MEDS ORDERED: WARFARIN SOD 7.5 MG TAB PO SCH (16:20)
[2020-09-12] MEDS ORDERED: PANTOprazole 40 MG in SYRINGE 0 ML IV ONE (03:39)
[2020-09-12] MEDS: PANTOprazole 40 MG in DEXTROSE 5% 100 ML IV SCH ×3 (04:06→13:30)
[2020-09-12 06:32] LABS: Hematocrit (blood only) 32.5 % (42-52); Hemoglobin 10.2 g/dL (14.0-18.0); Mean Corpuscular Hemoglobin 24.3 pg (25-34); Mean Corpuscular Hgb Conc 31.4 g/dL (32-36); Mean Corpuscular Volume 77.4 fL (80-100); Platelet Count 181 K/uL (130-400); RDW Standard Deviation 50.7 fL (36.4-46.3); White Blood Count 13.63 K/uL (4.8-10.8)
[2020-09-12 06:43] LABS: Partial Thromboplastin Ratio 1.2; Partial Thromboplastin Time 33.2 Seconds (21.0-31.0)
[2020-09-12 07:13] LABS: Albumin Level 2.7 gm/dl (3.4-5.0); BUN Creatinine Ratio 36.7 (10-20); Calcium 8.4 mg/dl (8.5-10.1); Creatinine Clr Calc Pharmacy 93.2 ml/min; Est GFR (African American) 107.8; Potassium 3.8 mmol/L (3.5-5.1)
[2020-09-12 07:15] LABS: Albumin Globulin Ratio 0.9 (0.9-2); Bilirubin,Total 1.6 mg/dl (0.2-1); Globulin 3.1 gm/dl (2.5-4.0); Total Protein 5.8 gm/dl (6.4-8.2)
[2020-09-12] MEDS: LORATADINE 10 MG TAB PO SCH (07:56)
[2020-09-12] MEDS: METOPROLOL TARTRATE 25 MG TAB PO SCH (07:56)
[2020-09-12] MEDS: lisinopril 10 MG TAB PO SCH (07:57)
[2020-09-12] MEDS: SERTRALINE HCL 50 MG TABLET PO SCH (07:57)
[2020-09-12] MEDS ORDERED: PIPERACILL/TAZOBAC CONSULT ACTIVE PRN (09:25)
[2020-09-12] MEDS ORDERED: PIPERACILLIN/TAZOBACTAM 3.375 GM in DEXTROSE 5% 100 ML IV ONE (10:00)
[2020-09-12 10:18] LABS: INR 1.4 (0.9-1.1); Prothrombin Time 14.2 Seconds (9.0-12.0)
[2020-09-12] MEDS ORDERED: Heparin IV Low Dose *NO* Bolus IV SCH (10:23)
--- NOTE | 2020-09-12 11:01 | Gastroenterology Progress Note ---
Date of Service September 12, 2020 Assessment & Plan (1) Black stool: 85 y/o male with history of a-fib, mechanical aortic valve, s/p ERCP and lap norma 09/10; had CBD stone which was removed and CBD stent placed, also had cholangitis. EGD done 09/09 with esophageal web and hiatal hernia. GI asked to see today as he had a black stool, which was not hemodynamically significant, followed by brown stool this AM after Coumadin was restarted yesterday. He has stable H&H and vital signs. Abd is soft. - Can continue anticoagulation as per primary/cardiology service - Would continue PPI - Repeat ERCP 4 weeks for CBD stent removal - Continue 7 day course of ABX for cholangitis - No plan for repeat endoscopy at this time - GI will sign off, please call with questions Admission and Anticipated Discharge Date Admission Date: September 09, 2020 Supervising Physician Co-Signing Physician Notes Late entry: patient was seen and examine don 09/12 with Anamika Yousif PA-C whose note reflects our findings and plan. Subjective GI asked to re-evaluate pt - had EGD 09/09 notable for esophageal web, hiatal hernia. Underwent ERCP 09/10 for choledocholithiasis with removal and placement of CBD stent, then had lap norma the same day. He was started on Heparin post- op and then began bridging with a dose of Coumadin yesterday, history of mechanical heart valve. This AM had a black stool, followed by 1 brown stool. HGB around baseline of 10, no significant rise in BUN, and he remains hemodynamically stable. He offers no complaints today; tolerated his breakfast. Having some abd discomfort post-op from lap norma, but otherwise no significant abd pain, n/v, hematemesis, CP, SOB. He is not oriented to place or time, per nursing is not unusual for him. Review of Systems Review of Systems: All systems reviewed & are unremarkable except as noted in HPI & below Physical Exam Constitutional: WD/WN, vitals as above Eyes: PERRL, conjunctivae normal, anicteric sclerae Respiratory: normal respiratory effort, lungs clear to auscultation Cardiovascular: Rate/Rhythm: + irregularly irregular Extremities: no pedal edema + crisp aortic valve sounds Gastrointestinal (Abdomen): Inspection/Auscultation: normal bowel sounds; abdomen not distended Percussion/Palpation: abdomen soft surgical dressings clean dry and intact; mild abd tenderness in the RUQ without rebound, guarding Skin: no rashes, warm and dry Psychiatric: Orientation: alert; + not oriented to place Results & Data ([facility]) Vital Signs (Past 12 Hours) Vital Signs Temp Pulse Pulse Resp BP Pulse Ox 09/12/20 07:26 36.7 C 84 18 139/79 95 09/12/20 07:18 71 09/12/20 02:49 36.7 C 85 20 137/80 97 09/12/20 01:01 84 L 09/12/20 00:22 75 Laboratory Results 09/12/20 09/12/20 09/12/20 Range/Units 05:59 05:59 05:59 WBC 13.63 H (4.8-10.8) K/uL RBC 4.20 L (4.7-6.1) M/uL Hgb 10.2 L (14.0-18.0) g/dL Hct 32.5 L (42-52) % MCV 77.4 L (80-100) fL MCH 24.3 L (25-34) pg MCHC 31.4 L (32-36) g/dL RDW Std Deviation 50.7 H (36.4-46.3) fL RDW Coeff of Miller 18.0 H (11.5-14.5) % Plt Count 181 (130-400) K/uL MPV 10.0 (7.4-10.4) fL PT 14.2 H (9.0-12.0) Seconds INR 1.4 H (0.9-1.1) APTT (21.0-31.0) Seconds PTT Ratio Sodium 133 L (136-145) mmol/L Potassium 3.8 (3.5-5.1) mmol/L Chloride 102 (98-107) mmol/L Carbon Dioxide 25 (21-32) mmol/L Anion Gap 6.0 (3-11) BUN 22 H (7-18) mg/dl Creatinine 0.59 L (0.6-1.4) mg/dl Est Cr Clr Drug Dosing 93.2 ml/min Est GFR ( Amer) 107.8 Est GFR (Non-Af Amer) 93.0 BUN/Creatinine Ratio 36.7 H (10-20) Glucose 103 H (70-99) mg/dl Calcium 8.4 L (8.5-10.1) mg/dl Total Bilirubin 1.6 H (0.2-1) mg/dl AST 33 (15-37) U/L ALT 39 (12-78) U/L Alkaline Phosphatase 207 H (45-117) U/L Total Protein 5.8 L (6.4-8.2) gm/dl Albumin 2.7 L (3.4-5.0) gm/dl Globulin 3.1 (2.5-4.0) gm/dl Albumin/Globulin Ratio 0.9 (0.9-2) Stool Occult Bld Scrn (Negative) 09/12/20 09/12/20 Range/Units 05:59 03:00 WBC (4.8-10.8) K/uL RBC (4.7-6.1) M/uL Hgb (14.0-18.0) g/dL Hct (42-52) % MCV (80-100) fL MCH (25-34) pg MCHC (32-36) g/dL RDW Std Deviation (36.4-46.3) fL RDW Coeff of Miller (11.5-14.5) % Plt Count (130-400) K/uL MPV (7.4-10.4) fL PT (9.0-12.0) Seconds INR (0.9-1.1) APTT 33.2 H (21.0-31.0) Seconds PTT Ratio 1.2 Sodium (136-145) mmol/L Potassium (3.5-5.1) mmol/L Chloride (98-107) mmol/L Carbon Dioxide (21-32) mmol/L Anion Gap (3-11) BUN (7-18) mg/dl Creatinine (0.6-1.4) mg/dl Est Cr Clr Drug Dosing ml/min Est GFR ( Amer) Est GFR (Non-Af Amer) BUN/Creatinine Ratio (10-20) Glucose (70-99) mg/dl Calcium (8.5-10.1) mg/dl Total Bilirubin (0.2-1) mg/dl AST (15-37) U/L ALT (12-78) U/L Alkaline Phosphatase (45-117) U/L Total Protein (6.4-8.2) gm/dl Albumin (3.4-5.0) gm/dl Globulin (2.5-4.0) gm/dl Albumin/Globulin Ratio (0.9-2) Stool Occult Bld Scrn Positive A (Negative)
[2020-09-12] MEDS: HEPARIN SODIUM/DEXTROSE 25,000 UNITS/500 ML BAG IV SCH (11:18)
--- NOTE | 2020-09-12 14:02 | Cardiology Consultation ---
Date of Consultation September 12, 2020 Assessment & Plan (1) Aortic valve replaced: (2) Chronic atrial fibrillation: Stable chronic coronary heart disease, chronic, rate controlled atrial fibrillation, remote mechanical aortic valve replacement. Patient admitted for cholangitis, underwent ERCP and biliary stent. There was concerns about bleeding while back on anticoagulation this morning, however hemoglobin has remained stable, most recent measurement 10.2, with chronic microcytic anemia noted historically. INR 1.4. Agree with cautious unfractioned heparin infusion at present which I would favor over low molecular weight heparin as this can be discontinued if the patient has recurrent bleeding issues arise. Hold Coumadin for now, will consider reinitiating tomorrow. Given treatment with antibiotics, Zosyn, anticipate INR may climb quickly. History of Present Illness Attending Physician: Peace Durant, History of Present Illness Anthony Cadena is an 85 year old male seen in cardiology consultation per the request of Dr. Durant for advice with regards to anticoagulation management given the patient's history of mechanical aortic valve replacement and chronic (permanent) atrial fibrillation. The patient's primary box lidder is Dr. Mendoza of our practice. I however followed the patient during his hospital stay in June,. At that time he had suffered an intertrochanteric fracture of the right hip required surgical intervention. The patient presented on 09/09/2020 the diagnosis of cholangitis. Patient underwent ERCP on 09/10/2020 with biliary sphincterotomy, balloon extraction, and placement of plastic biliary stent into the common bile duct. 6 hours post procedure, patient was transitioned back onto his heparin drip for anticoagulation bridging. Coumadin was reinitiated yesterday 09/11/2020 and received 1 dose. This morning he reportedly had black stool followed by 1 brown stool. Patient does not recollect this however. He has a chronic history of anemia. He was reassessed by GI this morning, and his heparin was reinitiated, with no recurrent bleeding at present. Cardiac History: Cron[place] artery disease status post coronary artery bypass grafting x5, mechanical aortic valve replacement on chronic anticoagulation with warfarin, permanent atrial fibrillation, borderline ischemic cardiomyopathy with ejection fraction of 50%, ascending aortic ectasia, 4.5 cm, hypertension, and dyslipidemia. Allergies Allergy/AdvReac Type Severity Reaction Status Date / Time Sulfa (Sulfonamide AdvReac Intermediate Unknown Unverified 09/01/20 14:25 Antibiotics) Home Medications Medication Instructions Recorded Confirmed Type ascorbic acid (vitamin C) [Vitamin 500 mg PO QAM #0 03/28/17 09/09/20 History C] coQ10 (ubiquinol) 200 mg PO QAM #0 03/28/17 09/09/20 History lisinopril 10 mg PO QAM #0 tab 03/28/17 09/09/20 History metoprolol tartrate 25 mg PO QAM #0 tab 03/28/17 09/09/20 History cholecalciferol (vitamin D3) 1,000 unit PO QAM 02/08/20 09/09/20 History [Vitamin D3] loratadine 10 mg PO QAM 02/08/20 09/09/20 History omega 1-mho-opo-fish oil [Fish Oil] 1 cap PO QAM 02/08/20 09/09/20 History vitamin B complex 1 tab PO QAM 02/08/20 09/09/20 History aspirin 81 mg PO QAM #0 tab 02/15/20 09/09/20 Rx gabapentin 100 mg PO TID 07/02/20 09/09/20 History omeprazole 20 mg PO QAM 07/02/20 09/09/20 History sertraline 50 mg PO QAM 07/02/20 09/09/20 History acetaminophen [Tylenol 8 Hour] 650 mg PO QID 07/23/20 09/09/20 History melatonin 3 mg PO DAILY@1999 PRN 07/23/20 09/09/20 History warfarin [Coumadin] 7.5 mg PO DAILY@199907/23/20 09/09/20 History rosuvastatin 20 mg PO Q2D 09/01/20 09/09/20 History Patient History Medical History Acute cholecystitis Aortic valve disease rheumatic aortic valve disease s/p AVR (2002) mechanical Atrial fibrillation permanent CAD (coronary artery disease) s/p CABG x5 (2002) Cranial nerve palsy CVA (cerebral vascular accident) per records dating back to 2014, patient denies Depression GERD (gastroesophageal reflux disease) HTN (hypertension) Ischemic cardiomyopathy "mild" Surgical History Aortic valve replaced (during CABG- 2002) History of hip surgery Right hip nailin07/03/20: Grade view 2, MAC#3, ETT 7.5 at [facility] S/P CABG x 5 2002 Family History Unknown No problems noted. 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[employer]ry Negative Required: No Beliefs That Will Affect Care: None marital status: / Current Living Situation: [facility] Current Living Situation Comment: AT [facility] Feels Safe at Home: Yes Assistive Devices: Walker Review of Systems Review of Systems: Unobtainable due to cognitive status Physical Exam Physical Exam: Temp Pulse Resp BP Pulse Ox 36.7 C 78 18 149/79 H 100 09/12/20 11:34 09/12/20 11:34 09/12/20 11:34 09/12/20 11:34 09/12/20 11:34 Constitutional: Patient able to provide past historical items, but confused with regards to recent events, no acute distress Respiratory: normal respiratory effort, lungs clear to auscultation Cardiovascular: Rate/Rhythm: regular rate Heart Sounds: no murmur Extremities: no edema [place] prosthetic heart sounds noted Gastrointestinal (Abdomen): normal bowel sounds, soft, nontender, no hepatosplenomegaly Neurologic: No focal deficits Results & Data ([facility]) Vital Signs (Past 12 Hours) Vital Signs Temp Pulse Pulse Pulse Resp BP Pulse Ox 09/12/20 11:34 36.7 C 78 18 149/79 H 100 09/12/20 07:26 36.7 C 84 18 139/79 95 09/12/20 07:18 71 09/12/20 02:49 36.7 C 85 20 137/80 97 Laboratory Results Cardiac Enzymes 09/12/20 Range/Units 05:59 AST 33 (15-37) U/L Coagulation 09/12/20 09/12/20 Range/Units 05:59 05:59 PT 14.2 H (9.0-12.0) Seconds APTT 33.2 H (21.0-31.0) Seconds CBC 09/12/20 Range/Units 05:59 WBC 13.63 H (4.8-10.8) K/uL RBC 4.20 L (4.7-6.1) M/uL Hgb 10.2 L (14.0-18.0) g/dL Hct 32.5 L (42-52) % Plt Count 181 (130-400) K/uL Comprehensive Metabolic Panel 09/12/20 Range/Units 05:59 Sodium 133 L (136-145) mmol/L Potassium 3.8 (3.5-5.1) mmol/L Chloride 102 (98-107) mmol/L Carbon Dioxide 25 (21-32) mmol/L BUN 22 H (7-18) mg/dl Creatinine 0.59 L (0.6-1.4) mg/dl Glucose 103 H (70-99) mg/dl Calcium 8.4 L (8.5-10.1) mg/dl AST 33 (15-37) U/L ALT 39 (12-78) U/L Alkaline Phosphatase 207 H (45-117) U/L Total Protein 5.8 L (6.4-8.2) gm/dl Albumin 2.7 L (3.4-5.0) gm/dl Intake and Output 09/11/20 09/12/20 09/12/20 22:59 06:59 14:59 Intake Total 355 / 2637.900 341.033 / 2637.900 1302.333 / 1302.333 Output Total 201 / 503 102 / 503 Balance 154 / 2134.900 239.033 / 2134.900 1302.333 / 1302.333 Intake: IV 115 / 1857.900 341.033 / 0033.709 8915.333 / 1302.333 D5W AND 1/2NSS + 20MEQ KCL 20 1000 / 1000 meq In 1,000 ml @ 50 mls/hr IV .Q20H PATTIE Rx#:[id number] HEPARIN SODIUM/DEXTROSE 25,000 341.033 / 627.900 0 / 0 units In 500 ml @ 1,300 UNITS/ HR 26 mls/hr IV .[id number] PATTIE Rx #:[id number] Protonix 40 mg In D5 100 ml @ 8 187.333 / 187.333 MG/HR 20 mls/hr IV Q5H PATTIE Rx# :[id number] Zosyn 3.375 gm In D5 100 ml @ 115 / 230 115 / 115 230 mls/hr IV NOW ONE Rx#: [id number] Oral 240 / 780 Output: Urine 200 / 500 100 / 500 # Bowel Movements 1 / 3 2 / 3 Other: Other Intake Source sips # Unmeasured Voids 2 Weight 76.7 kg Weight Measurement Method Built in [facility] Diagnostic Findings Telemetry: Atrial fibrillation, controlled ventricular response in the range of the 60s to 80 bpm range.
--- NOTE | 2020-09-12 14:27 | Hospitalist Progress Note ---
Date of Service September 12, 2020 Assessment & Plan (1) Acute cholangitis due to calculus of bile duct with obstruction: Underwent EUS on 09/09 for elevated transaminase and known gallstones CBD stone seen through a thickened bile duct with pus flowing out of ampulla Clinical picture consistent with acute cholangitis admitted to hospitalist service and started on Zosyn Overnight INR was reversed with vitamin K ERCP performed [address] Silvio Diaz with CBD stent placement followed by lap aroscopic cholecystectomy by Dr. Dalton Heparin drip started 6 hours postop ran overnight without bleeding issues Coumadin restarted next day with bleeding later that night Heparin drip held for approximately 6 hours then restarted after cleared by GI Remains on heparin drip and no more bleeding Per cardiology will likely start Coumadin back again today for bridge with mechanical valve. Patient remains on Zosyn, with last dose in next 1-2 days pending further clinical improvement. (2) Acute metabolic encephalopathy: Resolved, Likely multifactorial etiology including hospital stay, post- operative state, medication side effects vs polypharmacy including narcotics, and infection. (3) Chronic atrial fibrillation: Pt with a h/o stroke and currently atrial fibrillation. Cont heparin drip bridge to warfarin (starting now) per plan as above. (4) Abnormal ENT evaluation: Per Anesthesiology abnormal finding questionable mass of epiglottis and is recommending ENT evaluation as outpatient for laryngoscope (5) CAD (coronary artery disease): h/o CABG in the past. Cont medical management of CAD including crestor, lisinopril 10mg daily, Lopressor 25mg daily. ASA 81 held in setting of these procedures-would add this back prior to discharge, discuss the timing with cardiology. warfarin/heparin as above. (6) HTN (hypertension): slightly elevated, however, this may be related to encephalopathic state or postoperative pain/discomfort. Cont lisinopril 10mg daily per home regimen. (7) Memory deficits: pt awaiting formal neuropysch eval for dementia, no formal dx recent MRI 08/2020. No recent ischemia, hemorrhage, or other acute intracranial abnormality. Numerous infratentorial and supratentorial chronic lacunar infarcts. Many of these are associated with hemosiderin deposition. 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 Advanced global brain volume loss with extensive mainly confluent white matter T2/FLAIR hyperintensities, nonspecific findings most commonly associated with chronic microvascular ischemic disease. (8) DVT prophylaxis: heparin drip/warfarin DNR/DNI Dispo-cont hospitalization for now. Through his infection at this point-abx really only indicated for about 4 days post source control for treatment of the cholangitis, which would be tomorrow. Defer AC plan to Cardiology. Dispo per PT recommendations and case management to assist with placement as needed. Peace Durant DO [facility]ist Admission and Anticipated Discharge Date Admission Date: September 09, 2020 Subjective cc: Acute cholangitis with choledocholithiasis Patient reports an improvement in abdominal pain since yesterday He is eating and tolerating solid food without issue. He is ambulating with assistance He is mentating at baseline Denies any bleeding and nursing reports 2 formed stools without blood overnight. Review of Systems Review of Systems: All systems reviewed & are unremarkable except as noted in Subjective Physical Exam Physical Exam: CONSTITUTIONAL: WNWD, vitals as above, generally well- appearing, elderly EYES: normal conjunctivae, no scleral icterus ENT: external ear and nose normal, MMM RESPIRATORY: clear to auscultation bilaterally, no crackles, rales or wheezes, normal respiratory effort CARDIOVASCULAR: regular rate and rhythm, S1 and 2 heard without murmurs, gallops or rubs, no JVD, no peripheral edema GASTROINTESTINAL: soft, multiple laparoscopic surgical incision sites present on abdomen that are covered with dressings that are clean, dry and intact. Nondistended, generally nontender abdomen. MUSCULOSKELETAL: head NCAT, moving all extremities equally. SKIN: warm and dry, surgical incisions as above. NEUROLOGIC: CN 2-12 grossly intact, PSYCHIATRIC: alert cooperative and disoriented at the moment. Results & Data Results & Data ([facility]) Vital Signs (Past 12 Hours) Vital Signs Temp Pulse Pulse Pulse Resp BP Pulse Ox 09/12/20 11:34 36.7 C 78 18 149/79 H 100 09/12/20 07:26 36.7 C 84 18 139/79 95 09/12/20 07:18 71 09/12/20 02:49 36.7 C 85 20 137/80 97 Laboratory Results Short CBC 09/12/20 Range/Units 05:59 WBC 13.63 H (4.8-10.8) K/uL Hgb 10.2 L (14.0-18.0) g/dL Hct 32.5 L (42-52) % Plt Count 181 (130-400) K/uL BMP 09/12/20 05:59 Sodium 133 L Potassium 3.8 Chloride 102 Carbon Dioxide 25 BUN 22 H Creatinine 0.59 L Glucose 103 H Calcium 8.4 L Liver Function 09/12/20 Range/Units 05:59 Total Bilirubin 1.6 H (0.2-1) mg/dl AST 33 (15-37) U/L ALT 39 (12-78) U/L Alkaline Phosphatase 207 H (45-117) U/L Albumin 2.7 L (3.4-5.0) gm/dl Medications Administered Current Inpatient Medications Acetaminophen (Acetaminophen 325 Mg Tab) 650 mg PO Q4H PRN PRN Reason: Pain or Fever Stop: 10/09/20 15:12 Last Admin: 09/11/20 05:40 Dose: 650 mg Documented by: Al Hydrox/Mg Hydrox/Simethicone (Aluminum/Magnesium Susp 30 Ml Udc) 15 ml PO Q4H PRN PRN Reason: Dyspepsia Stop: 10/09/20 15:12 Pantoprazole Sodium 40 mg/ (Dextrose) 100 mls @ 20 mls/hr IV Q5H [facility] Stop: 10/12/20 03:59 Last Admin: 09/12/20 13:30 Dose: 8 mg/hr, 20 mls/hr Documented by: Piperacillin Sod/Tazobactam (Sod 3.375 gm/ Dextrose) 115 mls @ 28.75 mls/hr IV Q8H [facility]; Protocol Stop: 09/22/20 15:59 Heparin Sodium/Dextrose (Heparin Sodium/Dextrose) 25,000 units in 500 mls @ 18 mls/hr IV .Q24H [facility]; Protocol Stop: 10/12/20 10:44 Last Admin: 09/12/20 11:18 Dose: 900 units/hr, 18 mls/hr Documented by: Lisinopril ([facility] 10 Mg Tab) [facility] Stop: 10/11/20 08:59 Last Admin: 09/12/20 07:57 Dose: 10 mg Documented by: Loratadine (Loratadine 10 Mg Tab) [facility] Stop: 10/11/20 08:59 Last Admin: 09/12/20 07:56 Dose: 10 mg Documented by: Magnesium Hydroxide (Magnesium Hydroxide Susp 30 Ml Udc) 30 ml PO Q12H PRN PRN Reason: Constipation Stop: 10/09/20 15:12 Metoprolol Tartrate (Metoprolol Tartrate 25 Mg Tab) 25 mg PO [facility] Stop: 10/11/20 08:59 Last Admin: 09/12/20 07:56 Dose: 25 mg Documented by: Miscellaneous Information (Piperacill/Tazobac Consult Active) 1 ea N/A UD PRN PRN Reason: Consult Stop: 10/12/20 09:24 Morphine Sulfate (Morphine Sulfate 2 Mg/Ml Carp) 2 mg IV Q3H PRN PRN Reason: Pain (1,2,3,4,5) & Pre PT Stop: 09/24/20 14:58 Last Admin: 09/12/20 02:48 Dose: 2 mg Documented by: Morphine Sulfate (Morphine Sulfate 4 Mg/Ml 1 Ml Carp\Vial) 4 mg IV Q3H PRN PRN Reason: Pain (6,7,8,9,10) Stop: 09/24/20 14:58 Ondansetron HCl (Ondansetron Inj 2 Mg/Ml 2 Ml Vial) 4 mg IV Q6H PRN PRN Reason: Nausea Stop: 10/09/20 15:12 Last Admin: 09/12/20 00:51 Dose: 4 mg Documented by: Oxycodone/Acetaminophen (Oxycodone/Acetaminophen 5mg/325mg Tab) 1 tab PO Q4H PRN PRN Reason: Severe Pain Stop: 09/24/20 14:58 Pantoprazole Sodium (Pantoprazole 40 Mg Tab) 40 mg PO [facility]; Protocol Stop: 10/11/20 08:59 Last Admin: 09/11/20 07:53 Dose: 40 mg Documented by: Polyethylene Glycol (Polyethylene (Miralax) 17 Gm Pack) 17 gm PO DAILY PRN PRN Reason: Constipation Stop: 10/09/20 15:12 Rosuvastatin Calcium (Rosuvastatin Calcium 20 Mg Tab) 20 mg PO Q2D [facility] Stop: 10/10/20 20:59 Last Admin: 09/10/20 19:36 Dose: 20 mg Documented by: Sertraline HCl (Sertraline Hcl 50 Mg Tablet) 50 mg PO [facility] Stop: 10/11/20 08:59 Last Admin: 09/12/20 07:57 Dose: 50 mg Documented by: Warfarin Sodium (Warfarin Sod 7.5 Mg Tab) 7.5 mg PO DAILY@1600 [facility] Stop: 10/11/20 16:19 Last Admin: 09/11/20 17:19 Dose: 7.5 mg Documented by:
[2020-09-12] MEDS: PIPERACILLIN/TAZOBACTAM 3.375 GM in DEXTROSE 5% 100 ML IV SCH (16:30)
[2020-09-12] MEDS: ACETAMINOPHEN 500 MG TAB PO SCH (17:20)
[2020-09-12 17:31] LABS: Partial Thromboplastin Ratio 1.5; Partial Thromboplastin Time 40.7 Seconds (21.0-31.0)
[2020-09-12] MEDS: ROSUVASTATIN CALCIUM 20 MG TAB PO SCH (20:42)
[2020-09-12 23:43] LABS: Partial Thromboplastin Ratio 1.5; Partial Thromboplastin Time 43.2 Seconds (21.0-31.0)
[2020-09-13] MEDS: PIPERACILLIN/TAZOBACTAM 3.375 GM in DEXTROSE 5% 100 ML IV SCH ×4 (00:04→23:48)
[2020-09-13] MEDS ORDERED: LORazepam 0.5 MG TAB PO STA (00:22)
[2020-09-13] MEDS: ACETAMINOPHEN 500 MG TAB PO SCH ×3 (00:41→17:28)
[2020-09-13 06:30] LABS: Partial Thromboplastin Ratio 1.7
[2020-09-13 06:47] LABS: Partial Thromboplastin Time 47.4 Seconds (21.0-31.0)
[2020-09-13] MEDS: PANTOprazole 40 MG TAB PO SCH (08:03)
[2020-09-13] MEDS: LORATADINE 10 MG TAB PO SCH (08:03)
[2020-09-13] MEDS: lisinopril 10 MG TAB PO SCH (08:04)
[2020-09-13] MEDS: SERTRALINE HCL 50 MG TABLET PO SCH (08:04)
[2020-09-13] MEDS: METOPROLOL TARTRATE 25 MG TAB PO SCH (08:04)
[2020-09-13] MEDS: HEPARIN SODIUM/DEXTROSE 25,000 UNITS/500 ML BAG IV SCH (14:30)
--- NOTE | 2020-09-13 15:14 | Cardiology Progress Note ---
Date of Service September 13, 2020 Assessment & Plan (1) Acute cholangitis due to calculus of bile duct with obstruction: Status post biliary stent by ERCP. (2) Aortic valve replaced: (3) Chronic atrial fibrillation: He is on chronic anticoagulation due to remote mechanical aortic valve replacement, chronic atrial fibrillation. As tolerated heparin reinitiation x24 hours, consider resuming him, perhaps for 5 mg given coexistent antibiotic liliana atment. Admission and Anticipated Discharge Date Admission Date: September 09, 2020 Subjective Chief complaint, follow-up regards hematochezia, for anticoagulation Subjective: Patient feels well. Denies current complaints, rate controlled atrial fibrillation present. Physical Exam Physical Exam: Temp Pulse Resp BP Pulse Ox 36.5 C 92 H 18 161/91 H 90 09/13/20 14:56 09/13/20 14:56 09/13/20 14:56 09/13/20 14:56 09/13/20 14:56 Constitutional: No acute distress Respiratory: normal respiratory effort, lungs clear to auscultation Cardiovascular: Rate/Rhythm: + irregularly irregular Extremities: no edema [place] prosthetic heart sounds noted Gastrointestinal (Abdomen): normal bowel sounds, soft, nontender, no hepatosplenomegaly Neurologic: PERRL, EOMI, accommodation nl, no face palsy, no dysarthria Results & Data ([facility]) Vital Signs (Past 12 Hours) Vital Signs Temp Pulse Resp BP Pulse Ox 09/13/20 14:56 36.5 C 92 H 18 161/91 H 90 09/13/20 07:42 36.8 C 80 18 162/94 H 91
[2020-09-13] MEDS: WARFARIN SOD 2.5 MG TAB PO ONE (17:26)
[2020-09-14] MEDS: ACETAMINOPHEN 500 MG TAB PO SCH ×3 (00:12→16:43)
[2020-09-14 06:05] LABS: Hematocrit (blood only) 34.6 % (42-52); Hemoglobin 10.9 g/dL (14.0-18.0); Mean Corpuscular Hgb Conc 31.5 g/dL (32-36); Mean Corpuscular Volume 76.2 fL (80-100); Platelet Count 261 K/uL (130-400); RDW Coefficient of Variation 18.2 % (11.5-14.5); RDW Standard Deviation 50.9 fL (36.4-46.3); Red Blood Count 4.54 M/uL (4.7-6.1); White Blood Count 15.32 K/uL (4.8-10.8)
[2020-09-14 06:15] LABS: INR 1.4 (0.9-1.1); Prothrombin Time 14.4 Seconds (9.0-12.0)
[2020-09-14 06:31] LABS: Partial Thromboplastin Ratio 1.4; Partial Thromboplastin Time 40.4 Seconds (21.0-31.0)
[2020-09-14 06:33] LABS: BUN Creatinine Ratio 31.1 (10-20); Calcium 9.1 mg/dl (8.5-10.1); Creatinine Clr Calc Pharmacy 93.2 ml/min; Est GFR (African American) 107.8; Potassium 3.5 mmol/L (3.5-5.1)
[2020-09-14] MEDS: LORATADINE 10 MG TAB PO SCH (07:17)
[2020-09-14] MEDS: SERTRALINE HCL 50 MG TABLET PO SCH (07:18)
[2020-09-14] MEDS: lisinopril 10 MG TAB PO SCH (07:19)
[2020-09-14] MEDS: PANTOprazole 40 MG TAB PO SCH (07:19)
[2020-09-14] MEDS: METOPROLOL TARTRATE 25 MG TAB PO SCH (07:19)
[2020-09-14] MEDS: PIPERACILLIN/TAZOBACTAM 3.375 GM in DEXTROSE 5% 100 ML IV SCH ×2 (07:57→15:44)
[2020-09-14] MEDS: HEPARIN SODIUM/DEXTROSE 25,000 UNITS/500 ML BAG IV SCH ×2 (08:16→17:39)
[2020-09-14 14:26] LABS: Partial Thromboplastin Ratio 1.5; Partial Thromboplastin Time 41.9 Seconds (21.0-31.0)
--- NOTE | 2020-09-14 15:29 | Hospitalist Progress Note ---
Date of Service September 14, 2020 Assessment & Plan (1) Acute cholangitis due to calculus of bile duct with obstruction: Underwent EUS on 09/09 for elevated transaminase and known gallstones CBD stone seen through a thickened bile duct with pus flowing out of ampulla Clinical picture consistent with acute cholangitis admitted to hospitalist service and started on Zosyn Overnight INR was reversed with vitamin K ERCP performed [address] Silvio Diaz with CBD stent placement followed by lap aroscopic cholecystectomy by Dr. Dalton Heparin drip started 6 hours postop ran overnight without bleeding issues Coumadin restarted next day after the procedure then pt developed bleeding later that night; then heparin drip was held for 6 hrs as per GI No sign of active bleeding Continue IV heparin drip bridge and coumadin with INR 1.4 today Continue IV Zosyn (2) Acute metabolic encephalopathy: Likely multifactorial etiology including hospital stay, post-operative state, medication side effects vs polypharmacy including narcotics, and infectio n. Resolved (3) Chronic atrial fibrillation: Pt with a h/o stroke and currently atrial fibrillation. Rate control, will need to resume Lopressor Continue IV heparin drip bridge and coumadin, INR 1.4 today Continue monitor PT/INR Continue monitor closely (4) Abnormal ENT evaluation: Per Anesthesiology abnormal finding questionable mass of epiglottis and is recommending ENT evaluation as outpatient for laryngoscope (5) CAD (coronary artery disease): Hx CABG in the past. Continue crestor, lisinopril 10mg daily and ASA 81 on hold due to recent procedures and recent episodes of bleeding (6) HTN (hypertension): BP stable Continue lisinopril 10mg daily per home regimen. (7) Memory deficits: pt awaiting formal neuropysch eval for dementia, no formal dx recent MRI 08/2020. No recent ischemia, hemorrhage, or other acute intracranial abnormality. Numerous infratentorial and supratentorial chronic lacunar infarcts. Many of these are associated with hemosiderin deposition. 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 Advanced global brain volume loss with extensive mainly confluent white matter T2/FLAIR hyperintensities, nonspecific findings most commonly associated with chronic microvascular ischemic disease. (8) DVT prophylaxis: On Heparin drip/warfarin CODE STATUS DNR/DNI Admission and Anticipated Discharge Date Admission Date: September 09, 2020 Subjective Pt was seen and examined for follow up acute cholangitis with choledocholithiasis Lying in bed with no distress Pt was doing a video call with his son when i entered the room He said that he felt ok He said that he walked with physical therapist today and did ok I spoke to the son and provided with update and answered all his questions Pt denies any chest pain, palpitation, dizziness and SOB Physical Exam Physical Exam: General- No acute distress Head- atraumatic Eyes- PERRL, EOMI, ENT- oropharynx clear Neck- supple, no JVD Lungs- clear to auscultation Heart- irregular rhythm; no murmur Abdomen- normal bowel sounds, + nontender, +laparoscopic surgical incision Extremities- no calf tenderness Neuro- alert, oriented x 3; PERRL, EOMI; no facial palsy; no dysarthria Skin- warm & dry Results & Data Results & Data ([facility]) Vital Signs (Past 12 Hours) Vital Signs Temp Pulse Resp BP Pulse Ox 09/14/20 07:00 36.4 C L 83 22 167/95 H 95
--- NOTE | 2020-09-14 16:00 | Cardiology Progress Note ---
Date of Service September 14, 2020 Assessment & Plan (1) Chronic atrial fibrillation: (2) Aortic valve replaced: Patient underwent ERCP, biliary stent for cholangitis earlier this hospital stay. Hemoglobin stable this morning 10.9. Chronic microcytic anemia noted. INR 1.4, goal for his prosthesis is 2.5-3.5. Received Coumadin 2.5 mg daily on 09/13/2020. We will administer 5 mg today 09/07/2020, with plans to proceed with caution given Zosyn administration. Continue heparin infusion. Admission and Anticipated Discharge Date Admission Date: September 09, 2020 Subjective Patient seen in follow-up of his history of mechanical aortic valve, chronic atrial fibrillation, chronic coronary heart disease. With regards to his cholangitis, he denies current abdominal discomfort. Received a dose of Coumadin last evening, INR 1.4, hemoglobin stable, no blood per rectum reported. He is not on telemetry. Physical Exam Physical Exam: Temp Pulse Resp BP Pulse Ox 36.3 C L 57 L 18 137/74 96 09/14/20 15:32 09/14/20 15:32 09/14/20 15:32 09/14/20 15:32 09/14/20 15:32 Constitutional: WD/WN, vitals as above Respiratory: normal respiratory effort, lungs clear to auscultation Cardiovascular: Rate/Rhythm: + irregularly irregular Vessels: no JVD Extremities: no edema [place] prosthetic heart sounds noted Gastrointestinal (Abdomen): normal bowel sounds, soft, nontender, no hepatosplenomegaly Neurologic: Cognitive impairment noted consistent with dementia, no focal deficits, moves all 4 extremities Results & Data ([facility]) Vital Signs (Past 12 Hours) Vital Signs Temp Pulse Resp BP Pulse Ox 09/14/20 15:32 36.3 C L 57 L 18 137/74 96 09/14/20 07:00 36.4 C L 83 22 167/95 H 95
[2020-09-14] MEDS: WARFARIN SOD 5 MG TAB PO SCH (16:44)
[2020-09-14] MEDS: ROSUVASTATIN CALCIUM 20 MG TAB PO SCH (20:27)
[2020-09-14 20:51] LABS: Partial Thromboplastin Ratio 1.4; Partial Thromboplastin Time 39.6 Seconds (21.0-31.0)
[2020-09-15] MEDS: PIPERACILLIN/TAZOBACTAM 3.375 GM in DEXTROSE 5% 100 ML IV SCH ×2 (00:07→07:48)
[2020-09-15] MEDS: ACETAMINOPHEN 500 MG TAB PO SCH ×3 (00:09→17:01)
[2020-09-15 03:27] LABS: Hemoglobin 9.5 g/dL (14.0-18.0); Mean Corpuscular Hemoglobin 24.2 pg (25-34); Mean Corpuscular Hgb Conc 31.7 g/dL (32-36); Mean Corpuscular Volume 76.3 fL (80-100); Mean Platelet Volume 9.8 fL (7.4-10.4); Platelet Count 233 K/uL (130-400); Red Blood Count 3.93 M/uL (4.7-6.1); White Blood Count 10.56 K/uL (4.8-10.8)
[2020-09-15 03:38] LABS: INR 1.5 (0.9-1.1); Partial Thromboplastin Ratio 1.9; Prothrombin Time 15.1 Seconds (9.0-12.0)
[2020-09-15 03:42] LABS: BUN Creatinine Ratio 31.7 (10-20); Calcium 8.4 mg/dl (8.5-10.1); Creatinine Clr Calc Pharmacy 90.1 ml/min; Est GFR (African American) 106.3; Est GFR (Non-African American) 91.7; Potassium 3.2 mmol/L (3.5-5.1)
[2020-09-15 03:46] LABS: Partial Thromboplastin Time 52.9 Seconds (21.0-31.0)
[2020-09-15] MEDS: LORATADINE 10 MG TAB PO SCH (07:48)
[2020-09-15] MEDS: METOPROLOL TARTRATE 25 MG TAB PO SCH (07:48)
[2020-09-15] MEDS: SERTRALINE HCL 50 MG TABLET PO SCH (07:48)
[2020-09-15] MEDS: lisinopril 10 MG TAB PO SCH (07:48)
[2020-09-15] MEDS: PANTOprazole 40 MG TAB PO SCH (07:48)
[2020-09-15] MEDS ORDERED: POTASSIUM CHLORIDE CRTAB 20 MEQ TABCR PO ONE (08:00)
[2020-09-15 09:37] LABS: Partial Thromboplastin Ratio 1.7
[2020-09-15 09:44] LABS: Partial Thromboplastin Time 48.7 Seconds (21.0-31.0)
--- NOTE | 2020-09-15 16:09 | Cardiology Progress Note ---
Date of Service September 15, 2020 Assessment & Plan (1) Atrial fibrillation: (2) Aortic valve replaced: INR 1.5 this morning, goal INR 2.5-3.5 for this prosthesis. He is completed a course of antibiotics. Continue Coumadin 5 mg daily. Admission and Anticipated Discharge Date Admission Date: September 09, 2020 Subjective Patient seen in cardiology follow-up with regards to managing his anticoagulation with history of mechanical aortic valve replacement, atrial fibrillation. He offers no complaints. escrow assistant providing supervision for the patient and his roommate and offers differing accounts of today's events compared to the patient. She report no blood with bowel movements, has eaten well, and did well with PT. IV heparin infusiong. Physical Exam Physical Exam: Temp Pulse Resp BP Pulse Ox 36.3 C L 51 L 20 129/72 96 09/15/20 15:16 09/15/20 15:16 09/15/20 15:16 09/15/20 15:16 09/15/20 15:16 Constitutional: Oriented to self and place Respiratory: normal respiratory effort, lungs clear to auscultation Cardiovascular: Rate/Rhythm: + irregularly irregular ([place] prosthetic heart sounds noted) Gastrointestinal (Abdomen): normal bowel sounds, soft, nontender, no hepatosplenomegaly Neurologic: Cognitive impairment, confabulates, no focal deficits Results & Data ([facility]) Vital Signs (Past 12 Hours) Vital Signs Temp Pulse Resp BP Pulse Ox 09/15/20 15:16 36.3 C L 51 L 20 129/72 96 09/15/20 07:01 36.4 C L 70 16 142/87 H 98
--- NOTE | 2020-09-15 16:50 | Hospitalist Progress Note ---
Date of Service September 15, 2020 Assessment & Plan (1) Acute cholangitis due to calculus of bile duct with obstruction: Underwent EUS on 09/09 for elevated transaminase and known gallstones CBD stone seen through a thickened bile duct with pus flowing out of ampulla Clinical picture consistent with acute cholangitis admitted to hospitalist service and started on Zosyn Overnight INR was reversed with vitamin K ERCP performed [address] Silvio Diaz with CBD stent placement followed by lap aroscopic cholecystectomy by Dr. Dalton Heparin drip started 6 hours postop ran overnight without bleeding issues Coumadin restarted next day after the procedure then pt developed bleeding later that night; then heparin drip was held for 6 hrs as per GI No sign of active bleeding Continue IV heparin drip bridge and coumadin with INR 1.5 today Completed abx course (2) Acute metabolic encephalopathy: Likely multifactorial etiology including hospital stay, post-operative state, medication side effects vs polypharmacy including narcotics, and infec tion. Resolved (3) Chronic atrial fibrillation: Aortic valve replaced Pt with a h/o stroke and currently atrial fibrillation. Rate control, will need to resume Lopressor Continue IV heparin drip bridge and coumadin, INR 1.5 today INR goal 2.5 to 3.5 Continue monitor PT/INR Continue monitor closely (4) Abnormal ENT evaluation: Per Anesthesiology abnormal finding questionable mass of epiglottis and is recommending ENT evaluation as outpatient for laryngoscope (5) CAD (coronary artery disease): Hx CABG in the past. Continue crestor, lisinopril 10mg daily and ASA 81 on hold due to recent procedures and recent episodes of bleeding (6) HTN (hypertension): BP stable Continue lisinopril 10mg daily per home regimen. (7) Memory deficits: pt awaiting formal neuropysch eval for dementia, no formal dx recent MRI 08/2020. No recent ischemia, hemorrhage, or other acute intracranial abnormality. Numerous infratentorial and supratentorial chronic lacunar infarcts. Many of these are associated with hemosiderin deposition. 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 Advanced global brain volume loss with extensive mainly confluent white matter T2/FLAIR hyperintensities, nonspecific findings most commonly associated with chronic microvascular ischemic disease. (8) DVT prophylaxis: On Heparin drip/warfarin CODE STATUS DNR/DNI Admission and Anticipated Discharge Date Admission Date: September 09, 2020 Subjective Pt was seen and examined for follow up acute cholangitis with choledocholithiasis Lying in bed with no distress Pt said that he felt congested early, but after he coughed and seems his throat got cleared He said that he feels ok Denies any chest pain, palpitation, dizziness and SOB Physical Exam Physical Exam: General- No acute distress Head- atraumatic Eyes- PERRL, EOMI, ENT- oropharynx clear Neck- supple, no JVD Lungs- clear to auscultation Heart- irregular rhythm; no murmur Abdomen- normal bowel sounds, + nontender, +laparoscopic surgical incision Extremities- no calf tenderness Neuro- alert, oriented x 3; PERRL, EOMI; no facial palsy; no dysarthria Skin- warm & dry Results & Data Results & Data ([facility]) Vital Signs (Past 12 Hours) Vital Signs Temp Pulse Resp BP Pulse Ox 09/15/20 15:16 36.3 C L 51 L 20 129/72 96 09/15/20 07:01 36.4 C L 70 16 142/87 H 98
[2020-09-15] MEDS: WARFARIN SOD 5 MG TAB PO SCH (17:00)
[2020-09-15] MEDS: HEPARIN SODIUM/DEXTROSE 25,000 UNITS/500 ML BAG IV SCH (17:01)
[2020-09-15] MEDS: ACETAMINOPHEN 325 MG TAB PO PRN (20:45)
[2020-09-16] MEDS ORDERED: MELATONIN 3 MG TAB PO PRN
[2020-09-16] MEDS: ACETAMINOPHEN 500 MG TAB PO SCH ×2 (00:29→08:31)
[2020-09-16 06:34] LABS: INR 1.8 (0.9-1.1); Prothrombin Time 18.2 Seconds (9.0-12.0)
[2020-09-16 07:36] LABS: Partial Thromboplastin Ratio 1.8
[2020-09-16 07:41] LABS: Partial Thromboplastin Time 50.6 Seconds (21.0-31.0)
[2020-09-16] MEDS ORDERED: ALBUT/IPRATROP 3MG/0.5MG NEB 3 ML VIAL NEB STA (07:50)
[2020-09-16] MEDS: PANTOprazole 40 MG TAB PO SCH (08:28)
[2020-09-16] MEDS: METOPROLOL TARTRATE 25 MG TAB PO SCH (08:29)
[2020-09-16] MEDS: lisinopril 10 MG TAB PO SCH (08:29)
[2020-09-16] MEDS: SERTRALINE HCL 50 MG TABLET PO SCH (08:29)
[2020-09-16] MEDS: LORATADINE 10 MG TAB PO SCH (08:30)
[2020-09-16] MEDS: HEPARIN SODIUM/DEXTROSE 25,000 UNITS/500 ML BAG IV SCH (08:55)
[2020-09-16 09:12] LABS: BUN Creatinine Ratio 28.2 (10-20); Calcium 8.7 mg/dl (8.5-10.1); Creatinine Clr Calc Pharmacy 105.7 ml/min; Est GFR (African American) 113.5; Est GFR (Non-African American) 97.9; Potassium 3.7 mmol/L (3.5-5.1)
[2020-09-16 09:17] LABS: Hematocrit (blood only) 29.6 % (42-52); Hemoglobin 9.3 g/dL (14.0-18.0); Mean Corpuscular Hemoglobin 24.2 pg (25-34); Mean Corpuscular Hgb Conc 31.4 g/dL (32-36); Mean Corpuscular Volume 76.9 fL (80-100); Mean Platelet Volume 10.8 fL (7.4-10.4); Platelet Count 269 K/uL (130-400); RDW Coefficient of Variation 18.4 % (11.5-14.5); RDW Standard Deviation 51.6 fL (36.4-46.3); Red Blood Count 3.85 M/uL (4.7-6.1); White Blood Count 9.08 K/uL (4.8-10.8)
--- NOTE | 2020-09-16 12:17 | Hospitalist Progress Note ---
Date of Service September 16, 2020 Assessment & Plan (1) Acute cholangitis due to calculus of bile duct with obstruction: Underwent EUS on 09/09 for elevated transaminase and known gallstones CBD stone seen through a thickened bile duct with pus flowing out of ampulla Clinical picture consistent with acute cholangitis admitted to hospitalist service and started on Zosyn Overnight INR was reversed with vitamin K ERCP performed [address] Silvio Diaz with CBD stent placement followed by lap aroscopic cholecystectomy by Dr. Dalton Heparin drip started 6 hours postop ran overnight without bleeding issues Coumadin restarted next day after the procedure then pt developed bleeding later that night; then heparin drip was held for 6 hrs as per GI No sign of active bleeding Completed abx course (2) Acute metabolic encephalopathy: Likely multifactorial etiology including hospital stay, post-operative state, medication side effects vs polypharmacy including narcotics, and infection. Resolved (3) Chronic atrial fibrillation: Aortic valve replaced Pt with a h/o stroke and currently atrial fibrillation. Rate control, will need to resume Lopressor On IV heparin drip bridge and coumadin with INR 1.8 today (INR goal 2.5 to 3.5) Spoke to cardiology about to transition to Lovenox bridge on discharge Since pt had an episode of bleeding during this admission course and looks frai l, cardiology recommended to discharge him only on coumadin 7.5mg without bridge Follow up with the coumadin clinic (4) Abnormal ENT evaluation: Per Anesthesiology abnormal finding questionable mass of epiglottis and is recommending ENT evaluation as outpatient for laryngoscope (5) CAD (coronary artery disease): Hx CABG in the past. Continue crestor, lisinopril 10mg daily and ASA 81 on hold due to recent procedures and recent episodes of bleeding (6) HTN (hypertension): BP stable Continue lisinopril 10mg daily per home regimen. (7) Memory deficits: pt awaiting formal neuropysch eval for dementia, no formal dx recent MRI 08/2020. No recent ischemia, hemorrhage, or other acute intracranial abnormality. Numerous infratentorial and supratentorial chronic lacunar infarcts. Many of these are associated with hemosiderin deposition. 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 Advanced global brain volume loss with extensive mainly confluent white matter T2/FLAIR hyperintensities, nonspecific findings most commonly associated with chronic microvascular ischemic disease. (8) DVT prophylaxis: On Heparin drip/warfarin with INR 1.8 CODE STATUS DNR/DNI Disposition Discharge to the [facility] today COVID 19 negative (09/16/20) Admission and Anticipated Discharge Date Admission Date: September 09, 2020 Subjective Pt was seen and examined for follow up acute cholangitis with choledocholithiasis Sitting in chair with no distress Pt said that he feels ok He said that he did not sleep well last night because of too much in and out in his room He said that he does not have any abdominal pain He would like to go home today to take his 2nd COVID 19 vaccine Denies any chest pain, palpitation, dizziness and SOB Physical Exam Physical Exam: General- No acute distress Head- atraumatic Eyes- PERRL, EOMI, ENT- oropharynx clear Neck- supple, no JVD Lungs- clear to auscultation Heart- irregular rhythm; no murmur Abdomen- normal bowel sounds, + nontender, +laparoscopic surgical incision Extremities- no calf tenderness Neuro- alert, oriented x 3; PERRL, EOMI; no facial palsy; no dysarthria Skin- warm & dry Results & Data Results & Data ([facility]) Vital Signs (Past 12 Hours) Vital Signs Temp Pulse Resp BP Pulse Ox 09/16/20 08:55 78 17 98 09/16/20 07:09 36.6 C 73 16 144/88 H 96 09/16/20 00:10 36.7 C 67 18 140/77 95
--- NOTE | 2020-09-16 13:07 | Communication Note ---
Date of Service: September 16, 2020 Patient seen today, INR 1.8, continues heparin bridge. The goal INR for this area of aortic valve prosthesis is 2.5-3.5. The patient also has atrial fi brillation. He did have bloody stool earlier this hospital stay. Patient is recovered from a cholangitis standpoint and has completed his IV antibiotics. I believe it is in the best interest for the patient move forward, with hospital discharge today. Continue Coumadin, without bridge therapy, given potential for bleeding risks with Lovenox. Would resume previous dose of Coumadin 7.5 mg daily, anticipate he will be therapeutic 24 to 48 hours. At this point, given his bleeding risk, monotherapy with Coumadin felt to be in the patient's best interest.
[2020-09-16] MEDS ORDERED: WARFARIN SOD 7.5 MG TAB PO SCH (16:00)
--- NOTE | 2020-09-18 09:24 | Discharge Summary ---
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 Dr. Ibarra performed procedure and findings include a Web below UES, dilated up to 15mm, hiatal hernia, normal stomach, duodenal diverticulum and normal duodenal bulb. A EUS was then performed for IPMN and CBD stone was seen with thickened bile duct wall plus flowing out of the ampulla consistent with cholangitis. Due to INR being 2 ERCP could not be performed. Admission was recommended. Patient was seen in PACU without complaint. He denies fever, chills, sweats, lightheadedness, dizziness, chest pain, shortness of breath nausea, vomiting, abdominal pain, change in bowel or urinary habits. He was complaining of productive cough secondary to intubation. Patient does have history of memory loss therefore ROS unreliable. Of significance patient does live at the [facility] secondary to right hip fracture sustained in June 2020. He also had left hip fracture January 2020. Admission Exam Per Admitting Provider Constitutional: WD/WN, elderly, M, vitals as above, NAD, sitting up in bed, pleasant, conversing easily Head: Normocephalic, Atraumatic Eyes: PERRL, conjunctivae normal, anicteric sclerae ENMT: external ear and nose normal, oropharynx normal Neck: trachea midline, no thyromegaly normal visual inspection Respiratory: normal respiratory effort, lungs clear to auscultation, no wheeze, rales, rhonchi. Normal insp/exp effort, no accessory muscle use Cardiovascular: IRR/IRR, no murmur, no edema Vessels: no JVD or carotid bruit Chest: normal inspection of chest Abdomen: normal bowel sounds, soft, nontender, no hepatosplenomegaly Musculoskeletal: no cyanosis or clubbing, extremities motor strength 5/5 Skin: no rashes, warm and dry normal turgor Neurologic: PERRL, EOMI, accommodation nl, no face palsy, no dysarthria CN's II-XI intact bilaterally and moves all extremities Psychiatric: A+Ox1, euthymic affect : deferred Principal Diagnosis Acute cholangitis due to calculus of bile duct with obstruction: Acute metabolic encephalopathy: Chronic atrial fibrillation: Aortic valve replaced Questionable mass in epiglottis area CAD (coronary artery disease): HTN (hypertension): Memory deficits: Discharge Exam General- No acute distress Head- atraumatic Eyes- PERRL, EOMI, ENT- oropharynx clear Neck- supple, no JVD Lungs- clear to auscultation Heart- irregular rhythm; no murmur Abdomen- normal bowel sounds, + nontender, +laparoscopic surgical incision Extremities- no calf tenderness Neuro- alert, oriented x 3; PERRL, EOMI; no facial palsy; no dysarthria Skin- warm & dry Discharge Data Allergies Allergy/AdvReac Type Severity Reaction Status Date / Time Sulfa (Sulfonamide AdvReac Intermediate Unknown Unverified 09/01/20 14:25 Antibiotics) Consultations 09/09/20 15:02 Consult General Surgery Routine 09/09/20 15:13 Consult Case Management - Discharge Planning Routine Consult Gastroenterology Routine 09/12/20 09:14 Consult Cardiology Routine Procedures Performed Operation Date: 09/09/20 10:05 <No data on this case meets the specified criteria> Operation Date: 09/09/20 11:25 Actual Procedures p Esophagogastroduodenoscopy with Esophageal dilation(Not Applicable) - Andrea Ibarra MD s Upper Endoscopic Ultrasonography(Not Applicable) - Andrea Ibarra MD Operation Date: 09/10/20 10:00 Actual Procedures p Endoscopic Retrograde Cholangiopancreatogram, endoscopic ultrasound(Not Applicable) - Andrea Ibarra MD s Laparoscopic Cholecystectomy(Not Applicable) - Watson Fry MD Ordered Studies 09/09/20 10:52 US upper EUS PACS images Routine 09/10/20 FL ERCP biliary ductal Routine 09/10/20 10:34 US upper EUS PACS images Routine DICTATED BY: Andrea Ibarra MD Patient Name: Anthony Cadena Procedure Date: 09/09/2020 12:01 PM Date of : 1935 Admit Type: Outpatient Age: 85 Gender: Male Attending MD: Andrea Ibarra MD Procedure: Upper EUS Providers: Andrea Ibarra MD Referring MD: Andrea Ibarra MD Indications: Pancreatic cyst on MRI, Elevated liver enzymes Medicines: General Anesthesia, Cipro 400 mg IV Complications: No immediate complications. Estimated Blood Loss: Estimated blood loss: none. Procedure: Pre-Anesthesia Assessment: - Prior to the procedure, a History and Physical was performed, and patient medications, allergies and sensitivities were reviewed. The patient's tolerance of previous anesthesia was reviewed. - The risks and benefits of the procedure and the sedation options and risks were discussed with the patient. All questions were answered and informed consent was obtained. - Patient identification and proposed procedure were verified prior to the procedure by the physician and the nurse. The procedure was verified in the procedure room. - Pre-procedure physical examination revealed no contraindications to sedation. After obtaining informed consent, the endoscope was passed under direct vision. Throughout the procedure, the patient's blood pressure, pulse, and oxygen saturations were monitored continuously. The scope was introduced through the mouth, and advanced to the second part of duodenum. The upper EUS was accomplished without difficulty. The patient tolerated the procedure well. Findings: ENDOSONOGRAPHIC FINDING: : There was no sign of significant endosonographic abnormality in the ampulla. No masses were identified. Periampullary diverticulum seen. One stone was visualized endosonographically in the common bile duct. The stone measured 6 mm in greatest dimension. It was hyperechoic and characterized by shadowing. The duct diameter measured 7 mm. The duct wall was thickened. Multiple stones were visualized endosonographically in the gallbladder. They were hyperechoic and characterized by shadowing. There was no sign of significant endosonographic abnormality in the visualized portion of the liver. Homogeneous parenchyma was identified. Pancreatic parenchymal abnormalities were noted in the entire pancreas. These consisted of diffuse echogenicity and lobularity. PD measured 2 mm in diameter. An anechoic lesion suggestive of a cyst was identified in the pancreatic body. The lesion measured 11 mm in maximal cross-sectional diameter. There was a single compartment without septae. The outer wall of the lesion was thin. There was no associated mass. There was no internal debris within the fluid-filled cavity. An anechoic lesion suggestive of a cyst was identified in the uncinate process of the pancreas. The lesion measured 5 mm in maximal cross-sectional diameter. There was a single compartment There was no associated mass. There was no internal debris within the fluid-filled cavity. There was no sign of significant endosonographic abnormality in the visualized portion of the left adrenal gland. There was no sign of significant endosonographic abnormality involving the celiac trunk. Impression: - One stone was visualized endosonographically in the common bile duct with thickened ductal wall and observation of purulent material flowing out of the ampulla consistent with acute cholangitis. - Multiple stones were visualized endosonographically in the gallbladder. - There was no evidence of significant pathology in the visualized portion of the liver. - Pancreatic parenchymal abnormalities consisting of diffuse echogenicity and lobularity were noted in the entire pancreas suggestive of fatty pancreas. 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 - Endosonographic images of the left adrenal gland were unremarkable. - The celiac trunk was endosonographically normal. - No specimens collected. Recommendation: - [facility] and treatment of cholangitis. - CBC, CMP. - Zosyn (piperacillin tazobactam) IV. - Give 10 mg of IV Vitamin K to correct his INR. - Perform an ERCP tomorrow. - Surgery consult to arrange for combo ERCP/ Lap norma. - MRI of the pancreas for surveillance on the cyst in one year. - I spoke to his POA the son, AGUSTIN, who agreed. Andrea Ibarra MD 09/09/2020 1:51:06 PM This report has been signed electronically. Note Initiated On: 09/09/2020 12:01 PM Number of Addenda: 0 I attest to the content of the Intraoperative Record and orders documented therein, exceptions below {[id number]} Signed By:{f rep sign date/time1]Created/Dictated: 09/09/20 1201Transcribed: 09/09/20 1353 [place] ERCP biliary ductal HISTORY: 85 years-old Male ERCP DONE IN THE [facility].R. COMPARISON: CT abdomen pelvis 10/13/2017 TECHNIQUE: 4 spot fluoroscopic images of the abdominal right upper quadrant were obtained utilizing 36.1 seconds fluoroscopy time. FINDINGS: Endoscope is noted within the duodenum. Cannulation of the common bile duct with retrograde injection of contrast. There is no significant intrahepatic biliary ductal dilation. Tapered narrowing is noted of the distal common bile duct. Opacified cystic duct with minimal contrast suggested within the region of the gallbladder on image 4. Subsequent images demonstrate balloon sweep of the gallbladder with interval placement of a common bile duct stent which appears to be in satisfactory positioning. No definite biliary filling defects identified. Contrast is noted within the duodenum. IMPRESSION: Fluoroscopic assistance as above. Please see procedural report for further details. ACT 112: Negative or not required by law. The above report was generated using voice recognition software. It may contain grammatical, syntax or spelling errors. Electronically signed by: Miguelangel Patel M.D. 09/10/2020 1:36 PM Dictated: 09/10/20 133Transcribed: 09/10/201332 DICTATED BY: Andrea Ibarra MD Patient Name: Anthony Cadena Procedure Date: 09/10/2020 10:36 AM Date of : 1935 Admit Type: Inpatient Age: 85 Gender: Male Attending MD: Andrea Ibarra MD Procedure: ERCP Providers: Andrea Ibarra MD Referring MD: Peace Durant Do Indications: Abnormal endoscopic ultrasound of the biliary system, For therapy of bile duct stone(s), For therapy of ascending cholangitis Medicines: General Anesthesia Complications: No immediate complications. Estimated Blood Loss: Estimated blood loss: none. Procedure: Pre-Anesthesia Assessment: - Prior to the procedure, a History and Physical was performed, and patient medications, allergies and sensitivities were reviewed. The patient's tolerance of previous anesthesia was reviewed. - The risks and benefits of the procedure and the sedation options and risks were discussed with the patient. All questions were answered and informed consent was obtained. - Patient identification and proposed procedure were verified prior to the procedure by the physician and the nurse. The procedure was verified in the procedure room. - Pre-procedure physical examination revealed no contraindications to sedation. After obtaining informed consent, the scope was passed under direct vision. Throughout the procedure, the patient's blood pressure, pulse, and oxygen saturations were monitored continuously. The Scope was introduced through the mouth, and advanced to the duodenum and used to inject contrast into the bile duct. The ERCP was accomplished without difficulty. The patient tolerated the procedure well. Findings: The territory sales consultant film was normal. The esophagus was successfully intubated under direct vision. The scope was advanced to a normal major papilla in the descending duodenum without detailed examination of the pharynx, larynx and associated structures, and upper GI tract. The upper GI tract was grossly normal. The major papilla was located partially within a diverticulum. A 0.035 inch straight standard wire was passed into the biliary tree. The Fusion OMNI sphincterotome was passed over the guidewire and the bile duct was then deeply cannulated. Contrast was injected. I personally interpreted the bile duct images. Ductal flow of contrast was adequate. Image quality was adequate. Contrast extended to the main bile duct. Opacification of the entire biliary tree except for the gallbladder was successful. The maximum diameter of the ducts was 8 mm. The lower third of the main bile duct contained filling defect(s) thought to be a stone. Biliary sphincterotomy was made with a monofilament traction (standard) sphincterotome using ERBE electrocautery. There was no post-sphincterotomy bleeding. The biliary tree was swept with a 12 mm balloon starting at the bifurcation. Pus was swept from the duct. Three stones were removed. No stones remained. One 10 Fr by 7 cm plastic biliary stent with a single external flap and a single internal flap was placed into the common bile duct. Bile flowed through the stent. The stent was in good position. Indomethacin 100 mg was given via suppository to decrease the risk of post-ERCP pancreatitis (PEP). PD was not cannulated. Impression: - Choledocholithiasis was found. Complete removal was accomplished by biliary sphincterotomy and balloon extraction. - Ascending cholangitis was found. - One plastic biliary stent was placed into the common bile duct. Recommendation: - [facility]. - Repeat ERCP in 4 weeks to remove stent. - Clear liquid diet. - ABx to complete a 7 days course, be careful with interaction with Coumadin, may use Augmentin. - Proceed with Lap norma today. - Can resume Heparin drip with no bolus after 6 hrs from my point of view, if no issues then resume Coumadin after 1 - 2 days. - Recall GI if needed. Andrea Ibarra MD 09/10/2020 12:39:01 PM This report has been signed electronically. Note Initiated On: 09/10/2020 10:36 AM Number of Addenda: 0 I attest to the content of the Intraoperative Record and orders documented therein, exceptions below {[id number]} Signed By:{f rep sign date/time1]Created/Dictated: 09/10/20 1036Transcribed: 09/10/20 1239 DICTATED BY: Andrea Ibarra MD Patient Name: Anthony Cadena Procedure Date: 09/10/2020 10:37 AM Date of : 1935 Admit Type: Inpatient Age: 85 Gender: Male Attending MD: Andrea Ibarra MD Procedure: Upper EUS Providers: Andrea Ibarra MD Referring MD: Peace Durant Do Indications: Pancreatic cyst on MRI Medicines: General Anesthesia Complications: No immediate complications. Estimated Blood Loss: Estimated blood loss: none. Procedure: Pre-Anesthesia Assessment: - Prior to the procedure, a History and Physical was performed, and patient medications, allergies and sensitivities were reviewed. The patient's tolerance of previous anesthesia was reviewed. - The risks and benefits of the procedure and the sedation options and risks were discussed with the patient. All questions were answered and informed consent was obtained. - Patient identification and proposed procedure were verified prior to the procedure by the physician and the nurse. The procedure was verified in the procedure room. - Pre-procedure physical examination revealed no contraindications to sedation. After obtaining informed consent, the endoscope was passed under direct vision. Throughout the procedure, the patient's blood pressure, pulse, and oxygen saturations were monitored continuously. The scope was introduced through the mouth, and advanced to the second part of duodenum. The upper EUS was accomplished without difficulty. The patient tolerated the procedure well. Findings: ENDOSONOGRAPHIC FINDING: : An anechoic lesion suggestive of a cyst was identified in the pancreatic body. The lesion measured 10 mm in maximal cross-sectional diameter. There was a single compartment without septae. The outer wall of the lesion was thin. There was no associated mass. There was no internal debris within the fluid-filled cavity. Diagnostic needle aspiration for fluid was performed. Color Doppler imaging was utilized prior to needle puncture to confirm a lack of significant vascular structures within the needle path. One pass was made with the 22 gauge needle using a transgastric approach. A stylet was used. The amount of fluid collected was 1 mL. The fluid was yellow and viscous. Sample(s) were sent for cytology and CEA. Verification of patient identification for the specimen was done by the physician and nurse using the patient's name and date. Impression: - A 10 mm cyst was seen in the pancreatic body. Fine needle aspiration for fluid performed. Recommendation: - Await cytology results. - Perform an ERCP today. Andrea Ibarra MD 09/10/2020 12:30:21 PM This report has been signed electronically. Note Initiated On: 09/10/2020 10:37 AM Number of Addenda: 0 I attest to the content of the Intraoperative Record and orders documented therein, exceptions below {[id number]} Signed By:{f rep sign date/time1]Created/Dictated: 09/10/20 1037Transcribed: 09/10/20 1230 Hospital Course (1) Acute cholangitis due to calculus of bile duct with obstruction: Underwent EUS on 09/09 for elevated transaminase and known gallstones CBD stone seen through a thickened bile duct with pus flowing out of ampulla Clinical picture consistent with acute cholangitis admitted to hospitalist service and started on Zosyn Overnight INR was reversed with vitamin K ERCP performed [address] Silvio Diaz with CBD stent placement followed by laparoscopic cholecystectomy by Dr. Dalton Heparin drip started 6 hours postop ran overnight without bleeding issues Coumadin restarted next day after the procedure then pt developed bleeding later that night; then heparin drip was held for 6 hrs as per GI No sign of active bleeding Completed abx course (2) Acute metabolic encephalopathy: Likely multifactorial etiology including hospital stay, post-operative state, medication side effects vs polypharmacy including narcotics, and infection. Resolved (3) Chronic atrial fibrillation: Aortic valve replaced Pt with a h/o stroke and currently atrial fibrillation. Rate control, will need to resume Lopressor On IV heparin drip bridge and coumadin with INR 1.8 today (INR goal 2.5 to 3.5) Spoke to cardiology about to transition to Lovenox bridge on discharge Since pt had an episode of bleeding during this admission course and looks frail, cardiology recommended to discharge him only on coumadin 7.5mg without bridge Follow up with the coumadin clinic (4) Abnormal ENT evaluation: Per Anesthesiology abnormal finding questionable mass of epiglottis and is recommending ENT evaluation as outpatient for laryngoscope (5) CAD (coronary artery disease): Hx CABG in the past. Continue crestor, lisinopril 10mg daily and ASA 81 on hold due to recent procedures and recent episodes of bleeding (6) HTN (hypertension): BP stable Continue lisinopril 10mg daily per home regimen. (7) Memory deficits: pt awaiting formal neuropysch eval for dementia, no formal dx recent MRI 08/2020. No recent ischemia, hemorrhage, or other acute intracranial abnormality. Numerous infratentorial and supratentorial chronic lacunar infarcts. Many of these are associated with hemosiderin deposition. 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 Advanced global brain volume loss with extensive mainly confluent white matter T2/FLAIR hyperintensities, nonspecific findings most commonly associated with chronic microvascular ischemic disease. (8) DVT prophylaxis: On Heparin drip/warfarin with INR 1.8 CODE STATUS DNR/DNI Disposition Discharge to the [facility] today COVID 19 negative (09/16/20) Total Time Total Time Spent Total Time Spent (In Minutes): 35 minutes Total Time Includes: Examination of the Patient, Discharge Planning, Medication Reconciliation, Communication With Other Providers and Other Discharge Plan Discharge Items Patient Disposition: Transfer [facility] Reason For Visit: CHOLANGITIS Discharge Diagnosis: Acute cholangitis due to calculus of bile duct with obstruction: Acute metabolic encephalopathy: Chronic atrial fibrillation: Aortic valve replaced Questionable mass in epiglottis area CAD (coronary artery disease): HTN (hypertension): Memory deficits: Activity: Resume your previous activity Non-emergency contact: Primary Care Provider Call non-emergency contact if: you have any medication questions Follow-up/Referrals: Jamison Reynolds DO [Primary Care Provider] - Diet: Heart Healthy and Low Fiber Addtl Attending Provider Instructions: Follow up with your primary care provider for follow up within 1 week Follow up with general surgery Dr. Fry in 1 -2 weeks (call office at [phone] to make an appointment) There is a questionable mass of epiglottis and is recommending ENT evaluation as outpatient for laryngoscope (Please your physician can refer you for the appointment) Follow up with gastroenterology in 4 weeks to repeat ECRP and stent removal Follow up with the coumadin clinic to monitor PT/INR Continue coumadin 7.5 mg daily until adjusting the dose by the coumadin clinic Monitor for any abnormal bleeding and seek medical attention if any abnormal bleeding occurs Continue physical and occupational therapy Fall precaution Addtl [employer]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 Leave steri strips on incisions for 2 days and then remove. They may fall off on their own that is okay. - Follow-up in surgical office in 1-2 weeks, please call office at [phone] to make an appointment. Pending Studies at Discharge: No Stand-Alone Forms: [facility] Skilled Items Patient informed of condition?: Yes DNR: Yes Discharge Level of Care: Other Communicable Disease: No Discharge Prognosis: Stable Lines: None Urinary Catheter: No Medications and DC Order Prescriptions: Continued metoprolol tartrate 25 mg Tablet 25 mg PO QAM Qty: 0 RF: 0 ascorbic acid (vitamin C) [Vitamin C] 500 mg Tablet 500 mg PO QAM Qty: 0 RF: 0 lisinopril 10 mg Tablet 10 mg PO QAM Qty: 0 RF: 0 coQ10 (ubiquinol) 200 mg Capsule 200 mg PO QAM Qty: 0 RF: 0 vitamin B complex Tablet 1 tab PO QAM RF: 0 loratadine 10 mg Tablet 10 mg PO QAM RF: 0 cholecalciferol (vitamin D3) [Vitamin D3] 25 mcg (1,000 unit) Tablet 1,000 unit PO QAM RF: 0 omega 1-uqx-bto-fish oil [Fish Oil] 1,200 (144-216) mg Capsule 1 cap PO QAM RF: 0 aspirin 81 mg Tablet,Delayed Release (Dr/Ec) 81 mg PO QAM Qty: 0 RF: 0 rosuvastatin 20 mg Tablet 20 mg PO Q2D RF: 0 warfarin 7.5 mg Tablet 7.5 mg PO DAILY@1999 RF: 0 melatonin 3 mg Tablet 3 mg PO DAILY@1999 PRN (Reason: Sleep) RF: 0 acetaminophen [Tylenol 8 Hour] 650 mg Tablet Extended Release 650 mg PO QID RF: 0 omeprazole 20 mg capsule,delayed release(DR/EC) 20 mg PO QAM RF: 0 sertraline 50 mg Tablet 50 mg PO QAM RF: 0 Discontinued gabapentin 100 mg capsule 100 mg PO TID RF: 0 Discharge Orders: Discharge Order (Routine); Ordered 09/16/20 Ordered By: Solitario Rangel Admission Data Admit Date/Time: 09/09/20 13:32 Attending Provider: Solitario Rangel Admit Provider: Andrea Ibarra Primary Care Provider: Jamison Reynolds Other Providers: Watson Fry ; Andrea Ibarra ; Luke Pruitt ; Peace Duratn Other Interventions: Discharge Summary Assessment (RN) Last Done: 09/16/20 12:44
== END 2020-09-16 13:32 | DRG 417 ==
LOC: ASU 09:44 → SUATTDRO 13:32 → 2N 13:32

== ENCOUNTER 2022-05-11 12:51 | Inpatient (IN) ==
--- NOTE | 2022-05-11 13:29 | Emergency Department Note ---
History of Present Illness General Chief complaint: Illness Stated complaint: LARGE MASS LOWER R AB Time Seen by Provider: 05/11/22 13:04 History of Present Illness 87-year-old male presents to the ED with a chief complaint of abdominal mass in the right lateral abdominal wall. [facility]. At some point during an evaluation the nursing staff noticed the swelling and for this reason he was sent into the ED for evaluation. The patient has not noticed it before. He denies any discomfort or pain in the area. Denies any complaints. Home Medications Medication Instructions Recorded Confirmed Type coQ10 (ubiquinol) 200 mg capsule 200 mg PO QAM ##0 03/28/17 10/27/20 History lisinopril 10 mg tablet 10 mg PO QAM #0 tabs 03/28/17 11/04/20 History loratadine 10 mg tablet 10 mg PO QAM 02/08/20 11/04/20 History omega 7-bxn-ufk-fish oil 1,200 mg 1 cap PO QAM 02/08/20 11/04/20 History (144 mg-216 mg) capsule (Fish Oil) vitamin B complex 1 tab PO QAM 02/08/20 11/04/20 History aspirin 81 mg tablet,delayed 81 mg PO QAM #0 tabs 02/15/20 10/27/20 Rx release omeprazole 20 mg capsule,delayed 20 mg PO QAM 07/02/20 11/04/20 History release sertraline 50 mg tablet 50 mg PO QAM 07/02/20 11/04/20 History acetaminophen 650 mg 650 mg PO QID 07/23/20 11/04/20 History tablet,extended release (Tylenol 8 Hour) melatonin 3 mg tablet 3 mg PO DAILY@1999 PRN Sleep 07/23/20 11/04/20 History warfarin 7.5 mg tablet 7.5 mg PO UD 07/23/20 11/04/20 History rosuvastatin 20 mg tablet 20 mg PO Q2D 09/01/20 11/04/20 History amoxicillin 500 mg capsule 500 mg PO UD 10/22/20 10/27/20 History docusate sodium 100 mg capsule 100 mg PO BID 10/22/20 10/27/20 History (Colace) ferrous sulfate 325 mg (65 mg 325 mg PO BID 10/22/20 10/27/20 History iron) tablet,delayed release guaifenesin 600 mg tablet, 600 mg PO Q12H PRN Congestion 10/22/20 10/27/20 History extended release 12 hr (Mucinex) ipratropium 0.5 mg-albuterol 3 mg 3 ml inhalation Q6H PRN Wheezing 10/22/20 11/04/20 History (2.5 mg base)/3 mL nebulization soln metoprolol succinate 25 mg 25 mg PO QAM 10/22/20 11/04/20 History tablet,extended release 24 hr polyethylene glycol 3350 17 17 g PO DAILY PRN Constipation 10/22/20 11/04/20 History gram/dose oral powder (Miralax) sennosides 8.6 mg tablet (senna) 8.6 mg PO DAILY 10/22/20 11/04/20 History torsemide 20 mg tablet 20 mg PO QAM 10/22/20 11/04/20 History warfarin 5 mg tablet 5 mg PO UD 10/22/20 11/04/20 History Co Q-10 1 cap PO DAILY 11/04/20 11/04/20 History aspirin 81 mg PO DAILY 11/04/20 11/04/20 History ferrous sulfate 1 tab PO BID 11/04/20 11/04/20 History Allergies Allergy/AdvReac Type Severity Reaction Status Date / Time Sulfa (Sulfonamide AdvReac Intermediate Unknown Verified 11/04/20 10:48 Antibiotics) 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 Atrial fibrillation On Coumadin - rate controlled per cardio CAD (coronary artery disease) S/p 5 vessel CABG Chronic systolic (congestive) heart failure Improved volume status and dyspnea with initiation of diuretic per 09/2020 cardio records Cranial nerve palsy CVA (cerebral vascular accident) Per records dating back to 2014, patient denies Depression GERD (gastroesophageal reflux disease) HTN (hypertension) Hyperlipidemia Intraventricular conduction delay Chronic per records Ischemic cardiomyopathy Mild decline in LVEF per 09/2020 ECHO (EF 25-30%) Surgical History Aortic valve replaced (during CABG- 2002) History of cholecystectomy History of hip surgery Right hip nailin07/03/20: Grade view 2, MAC#3, ETT 7.5 at [facility] S/P CABG x 5 2002 Family History Unknown No problems noted. Father , 77 Myocardial infarction Brother Diabetes Social History Smoking Status: Never smoker Tobacco Type: Smokeless Tobacco (Dip or Chew) Second Hand Exposure: No; Hx Alcohol Use: No Hx Substance Use: No Preferred Language: Yoruba Communication Ability: Effective [place] Man Required: No Beliefs That Will Affect Care: None marital status: / Current Living Situation: Shelter Current Living Situation Comment[facility] Feels Safe at Home: Yes Assistive Devices: Walker Review of Systems A total of 10 systems reviewed and were otherwise negative Physical Exam Vital Signs Vital Signs - 24 hr 05/11/22 13:11 05/11/22 13:11 05/11/22 13:17 Temperature 36.4 C L 36.4 C L Temperature Source Oral Oral Pulse Rate 54 L 56 L Pulse Rate [Finger] 54 L Pulse Rate from SpO2 Sensor Pulse Rhythm [Finger] Respiratory Rate 16 16 18 Respiratory Depth Blood Pressure 143/78 H Blood Pressure [Right Arm] 143/78 H Blood Pressure Mean 99 Blood Pressure Mean [Right Arm] 99 Pulse Oximetry 96 96 97 Oxygen Delivery Method Room Air Room Air Room Air Sepsis Recent Fever Within 48 Hours No Sepsis New/Unexplained Change in Mental Status No Sepsis Action Taken by Nursing No Action Required 05/11/22 15:11 05/11/22 15:00 05/11/22 15:01 Temperature Temperature Source Pulse Rate 51 L 53 L Pulse Rate [Finger] Pulse Rate from SpO2 Sensor 59 L 53 L Pulse Rhythm [Finger] Regular Respiratory Rate 15 19 Respiratory Depth Normal Blood Pressure Blood Pressure [Right Arm] Blood Pressure Mean Blood Pressure Mean [Right Arm] Pulse Oximetry 87 L 95 Oxygen Delivery Method Sepsis Recent Fever Within 48 Hours Sepsis New/Unexplained Change in Mental Status Sepsis Action Taken by Nursing 05/11/22 15:01 05/11/22 15:10 05/11/22 15:20 Temperature Temperature Source Pulse Rate 56 L 55 L Pulse Rate [Finger] Pulse Rate from SpO2 Sensor 54 L 57 L Pulse Rhythm [Finger] Respiratory Rate 22 19 Respiratory Depth Blood Pressure 148/81 H Blood Pressure [Right Arm] Blood Pressure Mean 103 Blood Pressure Mean [Right Arm] Pulse Oximetry 96 98 Oxygen Delivery Method Sepsis Recent Fever Within 48 Hours Sepsis New/Unexplained Change in Mental Status Sepsis Action Taken by Nursing 05/11/22 15:30 05/11/22 15:30 05/11/22 15:40 Temperature Temperature Source Pulse Rate 63 53 L Pulse Rate [Finger] Pulse Rate from SpO2 Sensor 67 51 L Pulse Rhythm [Finger] Respiratory Rate 18 20 Respiratory Depth Blood Pressure 148/77 H Blood Pressure [Right Arm] Blood Pressure Mean 100 Blood Pressure Mean [Right Arm] Pulse Oximetry 91 97 Oxygen Delivery Method Sepsis Recent Fever Within 48 Hours Sepsis New/Unexplained Change in Mental Status Sepsis Action Taken by Nursing 05/11/22 15:50 05/11/22 16:00 05/11/22 16:01 Temperature Temperature Source Pulse Rate 53 L 68 74 Pulse Rate [Finger] Pulse Rate from SpO2 Sensor 53 L Pulse Rhythm [Finger] Respiratory Rate 20 17 20 Respiratory Depth Blood Pressure Blood Pressure [Right Arm] Blood Pressure Mean Blood Pressure Mean [Right Arm] Pulse Oximetry 95 Oxygen Delivery Method Sepsis Recent Fever Within 48 Hours Sepsis New/Unexplained Change in Mental Status Sepsis Action Taken by Nursing 05/11/22 16:01 05/11/22 16:10 05/11/22 16:20 Temperature Temperature Source Pulse Rate 57 L 58 L Pulse Rate [Finger] Pulse Rate from SpO2 Sensor Pulse Rhythm [Finger] Respiratory Rate 20 22 Respiratory Depth Blood Pressure 140/99 Blood Pressure [Right Arm] Blood Pressure Mean 112 Blood Pressure Mean [Right Arm] Pulse Oximetry Oxygen Delivery Method Sepsis Recent Fever Within 48 Hours Sepsis New/Unexplained Change in Mental Status Sepsis Action Taken by Nursing 05/11/22 16:30 05/11/22 16:30 05/11/22 16:40 Temperature Temperature Source Pulse Rate 48 L 56 L Pulse Rate [Finger] Pulse Rate from SpO2 Sensor Pulse Rhythm [Finger] Respiratory Rate 21 15 Respiratory Depth Blood Pressure 146/77 H Blood Pressure [Right Arm] Blood Pressure Mean 100 Blood Pressure Mean [Right Arm] Pulse Oximetry Oxygen Delivery Method Sepsis Recent Fever Within 48 Hours Sepsis New/Unexplained Change in Mental Status Sepsis Action Taken by Nursing 05/11/22 16:50 Temperature Temperature Source Pulse Rate 57 L Pulse Rate [Finger] Pulse Rate from SpO2 Sensor Pulse Rhythm [Finger] Respiratory Rate 13 Respiratory Depth Blood Pressure Blood Pressure [Right Arm] Blood Pressure Mean Blood Pressure Mean [Right Arm] Pulse Oximetry Oxygen Delivery Method Sepsis Recent Fever Within 48 Hours Sepsis New/Unexplained Change in Mental Status Sepsis Action Taken by Nursing CONSTITUTIONAL/VITAL SIGNS: Reviewed / noted above. GENERAL: Non-toxic in appearance. INTEGUMENTARY: Warm, dry, and [place]. HEAD: Normocephalic. EYES: without scleral icterus or trauma. ENT/OROPHARYNX: clear and moist. LYMPHADENOPATHY/NECK: Is supple without lymphadenopathy or meningismus. RESPIRATORY: Clear to auscultation bilaterally. No increased work of breathing. CARDIOVASCULAR: Regular rate and rhythm. GI/ABDOMEN: Soft and nontender. Some mild erythema and swelling to the right lateral abdominal wall. It is nontender. EXTREMITIES: Warm and well perfused. NEUROLOGICAL: Intact without focal deficits. PSYCHIATRIC: normal affect. MUSCULOSKELETAL: Normally developed with good muscle tone. TRIAGE NURSING DOCUMENTATION REVIEWED. Course Administered Medications Discontinued Medications Ioversol (Optiray 350 100ml) 88 ml IV ONCE ONE Stop: 05/11/22 14:53 Last Admin: 05/11/22 14:53 Dose: 88 ml Documented By: [facility] Medical Decision Making Differential Diagnosis Differential considered: pancreatitis, hepatitis, acute cholecystitis, AAA, UTI, pyelonephritis, kidney stones, appendicitis, diverticulitis, shingles, bowel obstruction, mesenteric ischemia, intussusception,hernia Medical Records Attestation: I reviewed the patient's medical records. Home Medications Current Medication List: was personally reviewed by me Laboratory Data Attestation: I reviewed the patient's lab results. Result diagrams: 05/11/22 13:09 05/11/22 13:09 Lab Results 05/11/22 05/11/22 05/11/22 Range/Units 13:09 13:09 13:50 WBC 16.31 H (4.8-10.8) K/ul RBC 4.27 L (4.63-6.08) M/uL Hgb 11.1 L (14.0-18.0) g/dl Hct 35.2 L (40.1-51.0) % MCV 82.4 (80.0-100.0) fL MCH 26.0 (25.0-34.0) pg MCHC 31.5 L (32.0-36.0) g/dL RDW Std Deviation 53.1 H (36.4-46.3) fL RDW Coeff of Miller 17.7 H (11.5-14.5) % Plt Count 344 (130-400) K/uL MPV 9.8 (9.4-12.4) fL Immature Gran % (Auto) 0.7 % Neut % (Auto) 84.5 % Lymph % (Auto) 3.1 % [place] % (Auto) 9.8 % Eos % (Auto) 1.6 % Baso % (Auto) 0.3 % Neut # (Auto) 13.79 H (1.4-6.5) K/uL Lymph # (Auto) 0.50 L (1.2-3.4) K/uL [place] # (Auto) 1.60 H (0.24-0.82) K/uL Eos # (Auto) 0.26 (0-0.50) K/uL Baso # (Auto) 0.05 (0-0.2) K/uL Immature Gran # (Auto) 0.11 H (0.00-0.02) K/uL Sodium 133 L (136-145) mmol/L Potassium 4.5 (3.5-5.1) mmol/L Chloride 100 (98-107) mmol/L Carbon Dioxide 27 (21-32) mmol/L Anion Gap 6 (3-11) BUN 23 (6-23) mg/dl Creatinine 0.76 (0.6-1.4) mg/dl Est Cr Clr Drug Dosing 72.0 ml/min Est GFR ( Amer) 95.7 ml/min Est GFR (Non-Af Amer) 82.6 ml/min BUN/Creatinine Ratio 30.3 H (10-20) Glucose 94 (70-99(Fasting)) mg/dl Calcium 9.4 (8.5-10.1) mg/dl Total Bilirubin 0.8 (0.2-1.0) mg/dl AST 17 (13-39) U/L ALT 11 (7-52) U/L Alkaline Phosphatase 101 (34-104) U/L Total Protein 7.2 (6.0-8.3) gm/dl Albumin 3.8 (3.4-5.0) gm/dl Globulin 3.4 (2.5-4.0) gm/dl Albumin/Globulin Ratio 1.1 (0.9-2) Urine Color Yellow Urine Appearance Clear (Clear) Urine pH 5.5 (4.5-7.5) Ur Specific [place] 1.009 (1.000-1.030) Urine Protein Negative (Negative) Urine Glucose (UA) Negative (Negative) Urine Ketones Negative (Negative) Urine Blood Trace H (Negative) Urine Nitrite Negative (Negative) Urine Bilirubin Negative (Negative) Urine Urobilinogen Negative (Negative) Ur Leukocyte Esterase Negative (Negative) Urine WBC (Auto) 0 (0-5) /hpf Urine RBC (Auto) 0-4 (0-4) /hpf U Hyaline Cast (Auto) 0 (0-5) /lpf U Epithel Cells (Auto) 0-5 (0-5) /lpf Urine Bacteria (Auto) Negative (Negative) Imaging Data Radiologist's Impression: Abdomen/Pelvis CT 05/11/22 13:16 CT SCAN OF THE ABDOMEN AND PELVIS WITH IV CONTRAST CLINICAL HISTORY: Right-sided abdominal pain. COMPARISON STUDY: Abdominal CT dated 10/13/2017. TECHNIQUE: Following the IV administration of 88 cc of Optiray 350, CT scan of the abdomen and pelvis is performed from the lung bases to the proximal femora. Images are reviewed in the axial, sagittal, and coronal planes. IV contrast was administered without complication. A dose lowering technique was utilized ad russell to the principles of ALARA. The examination is degraded by motion artifact, as well as by streak artifact from the right arm which could not be elevated above the abdomen. CT DOSE: 946.11 mGycm FINDINGS: Lung bases: The patient is status post midline sternotomy and aortic valve surgery. The heart is enlarged and without pericardial effusion. The coronary arteries are densely calcified. There are small right and trace left pleural effusions with dependent scarring/ atelectasis. A small hiatal hernia is noted. Liver: The contrast-enhanced liver is normal in size, contour, and attenuation. There is no intrahepatic biliary ductal dilatation. The hepatic veins and portal veins are patent. Gallbladder: Surgically absent and clips in the gallbladder fossa. Spleen: Normal in size and attenuation. Pancreas: Moderately atrophic and grossly unremarkable. Adrenal glands: Unremarkable. Kidneys: The contrast enhanced kidneys demonstrate cortical atrophy and are without hydronephrosis. The kidneys enhance symmetrically. Abdominal vasculature: The abdominal aorta is normal in course and caliber noting advanced atherosclerotic calcification. Bowel: There is moderate colonic diverticulosis without CT evidence of acute diverticulitis. No bowel obstruction is seen. There is mild colonic fecal retention. The appendix is normal as visualized. Peritoneum: There is no intraperitoneal free air or abdominal ascites. Lymphadenopathy: None. Pelvic viscera: Evaluation of the pelvis is degraded by streak artifact from orthopedic hardware in the hips. The prostate gland is enlarged and heterogeneous due to median lobe hypertrophy. The bladder wall is thickened and trabeculated indicating chronic outlet obstruction. Tiny bladder diverticula are noted. Surgical clips are seen along the spermatic cord. Skeletal structures: The skeletal structures are osteopenic. There is moderate lumbosacral spondylosis. No lytic or blastic lesions are seen. Postoperative changes noted in the proximal femora bilaterally. There is a subacute appearing right posterior 11th rib fracture. Additional chronic rib fractures are seen bilaterally. Soft tissues: There is a large complex heterogeneous slightly hyperdense lesion/collection seen in the right abdominal wall musculature on axial image #202. This measures approximately 7 x 10 x 6 cm in aggregate dimension and there is overlying soft tissue stranding. The appearance favors a hematoma. No active extravasation is identified. A smaller similar appearing collection is seen in the right lower chest wall between the lateral 9th and 10th ribs on image #105. This measures approximately 5 x 3 x 1.5 cm. IMPRESSION: 1. There is approximately 10 cm complex lesion/collection identified in the right lateral abdominal wall musculature with overlying soft tissue stranding. The location and appearance favors an intramuscular hematoma. Clinical correlation will be required, and clinical follow-up to resolution is recommended to exclude the less likely possibility of underlying mass lesion. 2. A smaller similar-appearing collection is seen within the right lateral chest wall musculature between the 9th and 10th ribs. 3. There is no evidence of active extravasation at the time of examination. 4. Cardiomegaly with small right and trace left pleural effusions. 5. Colonic diverticulosis without CT evidence of acute diverticulitis. 6. There is a subacute appearing right posterior 11th rib fracture. Correlate for point tenderness. 7. Additional findings as above. ACT 112: Negative or not required by law. Electronically signed by: Cooper Cisse M.D. 05/11/2022 3:14 PM MDM Narrative 87-year-old male presents with a nontender, nonpainful right lateral abdominal mass that is mildly erythematous. Uncertain how long it has been there. A CT scan as noted above. There is a 10 cm complex collection of fluid possibly representing an intramuscular hematoma. There is an elevated white blood cell count as well. I did speak with Dr. Ya about the patient. He feels the patient should be admitted with some IV antibiotics and monitored. He does not feel drainage of the fluid would be prudent at this time. He will consult with the patient. The medicine service was consulted for inpatient evaluation. Patient is on Coumadin. His INR is pending. Active bleeding on evaluation and no active extravasation on CT. Patient was given a dose of IV Ancef here. Impression & Plan Abdominal wall hematoma Discharge Plan Visit Data Chief Complaint: Illness Stated Complaint: LARGE MASS LOWER R AB ED Provider: Freeman Markham Discharge Problem: Abdominal wall hematoma Patient Disposition: Being Evaluated by Hospitalist Forms Stand Alone Forms: My [facility] Emergency Department, Important Visit Information Prescriptions Prescriptions: No Action lisinopril 10 mg Tablet 10 mg PO QAM Qty: 0 coQ10 (ubiquinol) 200 mg Capsule 200 mg PO QAM Qty: 0 vitamin B complex Tablet 1 tab PO QAM loratadine 10 mg Tablet 10 mg PO QAM omega 9-zow-irw-fish oil [Fish Oil] 1,200 (144-216) mg Capsule 1 cap PO QAM aspirin 81 mg Tablet,Delayed Release (Dr/Ec) 81 mg PO QAM Qty: 0 0RF rosuvastatin 20 mg Tablet 20 mg PO Q2D warfarin 7.5 mg Tablet 7.5 mg PO UD Label Comments: EMAR STATES TAKES 7MG DAILY Rx Instructions: takes every saturday and start at 10/17 and stop on 10/29 melatonin 3 mg Tablet 3 mg PO DAILY@2000 PRN (Reason: Sleep) acetaminophen [Tylenol 8 Hour] 650 mg Tablet Extended Release 650 mg PO QID omeprazole 20 mg capsule,delayed release(DR/EC) 20 mg PO QAM sertraline 50 mg Tablet 50 mg PO QAM Rx Instructions: 06/30/2020, Take by mouth half a tablet (25 mg) once daily for two weeks then start taking one tablet (50 mg) once daily amoxicillin 500 mg Capsule 500 mg PO UD Rx Instructions: take 4 capsules prior to dental apt sennosides [senna] 8.6 mg Tablet 8.6 mg PO DAILY ipratropium-albuterol 0.5 mg-3 mg(2.5 mg base)/3 mL Solution For Nebulization 3 ml INHALATION Q6H PRN (Reason: Wheezing) torsemide 20 mg Tablet 20 mg PO QAM warfarin 5 mg Tablet 5 mg PO UD Rx Instructions: takes every , sat, sat, sat, sun start on 10/17 and hold on 10/29 docusate sodium [Colace] 100 mg Capsule 100 mg PO BID metoprolol succinate 25 mg Tablet Extended Release 24 Hr 25 mg PO QAM polyethylene glycol 3350 [Miralax] 17 gram/dose Powder 17 g PO DAILY PRN (Reason: Constipation) ferrous sulfate 325 mg (65 mg iron) Tablet,Delayed Release (Dr/Ec) 325 mg PO BID guaifenesin [Mucinex] 600 mg Tablet Extended Release 12hr 600 mg PO Q12H PRN (Reason: Congestion) Co Q-10 1 cap PO DAILY aspirin 81 mg 81 mg PO DAILY ferrous sulfate 325 mg 1 tab PO BID Referrals Referrals: Mauro Mejia [Primary Care Provider] -
[2022-05-11 13:49] LABS: Basophils # (auto) 0.05 K/uL (0-0.2); Basophils % (auto) 0.3 %; Eosinophils # (auto) 0.26 K/uL (0-0.50); Eosinophils % (auto) 1.6 %; Hematocrit (blood only) 35.2 % (40.1-51.0); Hemoglobin 11.1 g/dl (14.0-18.0); Immature Granulocytes # (auto) 0.11 K/uL (0.00-0.02); Immature Granulocytes % (auto) 0.7 %; Lymphocytes % (auto) 3.1 %; Mean Corpuscular Hgb Conc 31.5 g/dL (32.0-36.0); Mean Corpuscular Volume 82.4 fL (80.0-100.0); Mean Platelet Volume 9.8 fL (9.4-12.4); Monocytes % (auto) 9.8 %; Neutrophils # (auto) 13.79 K/uL (1.4-6.5); Neutrophils % (auto) 84.5 %; Platelet Count 344 K/uL (130-400); RDW Coefficient of Variation 17.7 % (11.5-14.5); RDW Standard Deviation 53.1 fL (36.4-46.3); Red Blood Count 4.27 M/uL (4.63-6.08); White Blood Count 16.31 K/ul (4.8-10.8)
[2022-05-11 14:03] LABS: Albumin Globulin Ratio 1.1 (0.9-2); Albumin Level 3.8 gm/dl (3.4-5.0); BUN Creatinine Ratio 30.3 (10-20); Bilirubin,Total 0.8 mg/dl (0.2-1.0); Calcium 9.4 mg/dl (8.5-10.1); Est GFR (African American) 95.7 ml/min; Est GFR (Non-African American) 82.6 ml/min; Globulin 3.4 gm/dl (2.5-4.0); Potassium 4.5 mmol/L (3.5-5.1); Total Protein 7.2 gm/dl (6.0-8.3)
[2022-05-11 14:16] LABS: Appearance Urine Clear (Clear); Bacteria Urine Automated Negative (Negative); Bilirubin Urine Negative (Negative); Blood Urine Trace (Negative); Cast Urine Automated 0 /lpf (0-5); Color Urine Yellow; Epithelial Cell Urine Auto 0-5 /lpf (0-5); Glucose Urine UA Negative (Negative); Ketones Urine Negative (Negative); Leukocyte Esterase Urine Negative (Negative); Nitrite Urine Negative (Negative); Protein Urine Negative (Negative); RBC Urine Automated 0-4 /hpf (0-4); Specific Gravity Urine 1.009 (1.000-1.030); Urobilinogen Urine Negative (Negative); WBC Urine Automated 0 /hpf (0-5); pH Urine 5.5 (4.5-7.5)
[2022-05-11] MEDS ORDERED: OPTIRAY 350 100ml IV ONE (14:52)
--- NOTE | 2022-05-11 15:16 | CT Scan Report ---
CT SCAN OF THE ABDOMEN AND PELVIS WITH IV CONTRAST CLINICAL HISTORY: Right-sided abdominal pain. COMPARISON STUDY: Abdominal CT dated 10/13/2017. TECHNIQUE: Following the IV administration of 88 cc of Optiray 350, CT scan of the abdomen and pelvi s is performed from the lung bases to the proximal femora. Images are reviewed in the axial, sagittal , and coronal planes. IV contrast was administered without complication. A dose lowering technique wa s utilized adhering to the principles of ALARA. The examination is degraded by motion artifact, as we ll as by streak artifact from the right arm which could not be elevated above the abdomen. CT DOSE: 946.11 mGycm FINDINGS: Lung bases: The patient is status post midline sternotomy and aortic valve surgery. The heart is enla rged and without pericardial effusion. The coronary arteries are densely calcified. There are small r ight and trace left pleural effusions with dependent scarring/ atelectasis. A small hiatal hernia is noted. Liver: The contrast-enhanced liver is normal in size, contour, and attenuation. There is no intrahepa tic biliary ductal dilatation. The hepatic veins and portal veins are patent. Gallbladder: Surgically absent and clips in the gallbladder fossa. Spleen: Normal in size and attenuation. Pancreas: Moderately atrophic and grossly unremarkable. Adrenal glands: Unremarkable. Kidneys: The contrast enhanced kidneys demonstrate cortical atrophy and are without hydronephrosis. T he kidneys enhance symmetrically. Abdominal vasculature: The abdominal aorta is normal in course and caliber noting advanced atheroscle rotic calcification. Bowel: There is moderate colonic diverticulosis without CT evidence of acute diverticulitis. No bowel obstruction is seen. There is mild colonic fecal retention. The appendix is normal as visualized. Peritoneum: There is no intraperitoneal free air or abdominal ascites. Lymphadenopathy: None. Pelvic viscera: Evaluation of the pelvis is degraded by streak artifact from orthopedic hardware in t he hips. The prostate gland is enlarged and heterogeneous due to median lobe hypertrophy. The bladder wall is thickened and trabeculated indicating chronic outlet obstruction. Tiny bladder diverticula a re noted. Surgical clips are seen along the spermatic cord. Skeletal structures: The skeletal structures are osteopenic. There is moderate lumbosacral spondylosi s. No lytic or blastic lesions are seen. Postoperative changes noted in the proximal femora bilateral ly. There is a subacute appearing right posterior 11th rib fracture. Additional chronic rib fractures are seen bilaterally. Soft tissues: There is a large complex heterogeneous slightly hyperdense lesion/collection seen in th e right abdominal wall musculature on axial image #202. This measures approximately 7 x 10 x 6 cm in aggregate dimension and there is overlying soft tissue stranding. The appearance favors a hematoma. N o active extravasation is identified. A smaller similar appearing collection is seen in the right low er chest wall between the lateral 9th and 10th ribs on image #105. This measures approximately 5 x 3 x 1.5 cm. IMPRESSION: 1. There is approximately 10 cm complex lesion/collection identified in the right lateral abdominal w all musculature with overlying soft tissue stranding. The location and appearance favors an intramusc ular hematoma. Clinical correlation will be required, and clinical follow-up to resolution is recomme nded to exclude the less likely possibility of underlying mass lesion. 2. A smaller similar-appearing collection is seen within the right lateral chest wall musculature bet ween the 9th and 10th ribs. 3. There is no evidence of active extravasation at the time of examination. 4. Cardiomegaly with small right and trace left pleural effusions. 5. Colonic diverticulosis without CT evidence of acute diverticulitis. 6. There is a subacute appearing right posterior 11th rib fracture. Correlate for point tenderness. 7. Additional findings as above. ACT 112: Negative or not required by law. Electronically signed by: Cooper Cisse M.D. 05/11/2022 3:14 PM
[2022-05-11] MEDS ORDERED: ceFAZolin 3,000 MG in DEXTROSE 5% 50 ML IV STA (16:20)
--- NOTE | 2022-05-11 17:20 | History & Physical Report ---
Date of Service May 11, 2022 Assessment & Plan (1) Abdominal wall hematoma: Plan: -Admit to med/tele -Patient is currently afebrile, hemodynamically stable, and stable on room air -Abdominal wall swelling [facility] CT showing intram uscular hematoma without acute extravasation and stranding overlying the soft tissue - Hgb is currently stable at 10.7, waiting for PT/INR to result, last dose of Warfarin was last night per the [facility] staff -Patient was given a dose of Cefazolin for possible cellulitis overlying the hematoma, patient does have significant leukocytosis with left shift, adding on a procal now and obtaining blood cultures -If the patient's procal is elevated will continue abx for now -Will keep NPO except meds overnight in case a procedure would be needed in the near future, light IV hydration while NPO -Repeating an H&H now and then will monitor q6h, transfuse for a Hgb less than 7 -AM CMP (2) Atrial fibrillation: Plan: -Currently rate controlled -Last dose of Coumadin was last night, will need to hold for now with current hematoma, patient and son are in agreement -Will continue [employer] metoprolol for rate control (3) Ischemic cardiomyopathy: Plan: -Noted to have a LVEF of 45%, does not examine volume overloaded -Will hold [employer] diuretics for now to ensure his BP remians stable, can restart during admission if he becomes volume overloaded or if his BP remains stable (4) HTN (hypertension): Plan: -Hold [employer] lisinopril for now to prevent hypotension (5) GERD (gastroesophageal reflux disease): Plan: -Will add famotidine for stress ulcer PPX (6) Depression: Plan: -[employer] sertraline (7) CAD (coronary artery disease): Plan: -Hold [employer] aspirin for now (8) Hyperlipidemia: Plan: -[employer] statin Plan The patient was discussed with Dr. 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 Per ED staff, the patient is a resident of the [facility]. Nursing staff noted a mass/swelling on the right abdominal wall which was not noticed before, because of this he was transported to the ED for evaluation. In the ED the patient was found to be afebrile, hemodynamically stable, and stable on room air. Labs were significant for a leukocytosis of 16.31 with left shift of 13.79, stable Hgb of 11.1, and sodium of 133. INR and PT were pending at the time of evaluation. CT of the abdomen and pelvis with IV contrast showed an approximately 10 cm complex lesion/collection identified in the right lateral abdominal wall musculature with overlying soft tissue stranding. The location and appearance favors an intramuscular hematoma without evidence of acute extravasation. Cardiomegaly with small right and trace left pleural effusions, diverticulosis without diverticulitis, and a subacute appearing right posterior 11th rib fracture. In the Ed the patient was given 3g IV cefazolin due to possible cellulitis overlying the abdominal swelling. At the time of the exam the patient was resting comfortably in bed in no acute distress. He states that he believes he was brought into the hospital because of the swelling in his abdomen, he denies any issues at the time of the exam. When asked, he denies any recent trauma or falls, the only thing he can think of is that he had a very hard and difficult bowel movement yesterday. I called and spoke to the [facility] as well. They tell me that he was doing well and in his normal state of health, he was able to go to the dinning room and eat breakfast. After breakfast he asked them to come to his room because he was not feeling well, when they examined him they noticed the large abdominal wall swelling and called EMS. They state that he last took his warfarin last night as scheduled and confirmed that he is a Full Code. They also denied of knowing any recent falls/trauma and state that he would likely be a resident who would tell them if anything had happened. I called and spoke to the patient's son (Anthony Quach [phone]) to update him on the situation and obtain more information. He states that he father frequently suffers from short-term memory loss but does not have an official diagnosis of Dementia. I explained the risks and benefits of of holding the patient's Warfarin to both the patient and his Son and they are both in agreement of holding it for now. I also spoke to them regarding code status as the current POLST form lists the patient as a FULL CODE. The patient clearly stated to me that he is 87 years old and at this time he would no longer want CPR or to be intubated as he has lived a good life. His son was in full agreement of his father's decision and does not think his father's quality of life would be good if CPR were performed. Due to their wishes I switched the patient to DNR/DNI. I also spoke to the patient and his son regarding a blood transfusion if one would be needed. I explained the risks and benefits to both and they were both in agreement that the patient would want a blood transfusion if needed; a blood consent was then filled out. Allergies Allergy/AdvReac Type Severity Reaction Status Date / Time Sulfa (Sulfonamide AdvReac Intermediate Unknown Verified 05/11/22 17:38 Antibiotics) Home Medications Medication Instructions Recorded Confirmed Type acetaminophen 500 mg tablet 500 mg PO Q4 PRN Pain 05/11/22 05/11/22 History (Tylenol Extra Strength) acetaminophen 500 mg tablet 500 mg PO QID 05/11/22 05/11/22 History (Tylenol Extra Strength) acyclovir 5 % topical ointment 1 applic topical AMPM 05/11/22 05/11/22 History aspirin 81 mg tablet,delayed 81 mg PO DAILY 05/11/22 05/11/22 History release carboxymethylcellulose sodium 0.5 2 drp OPB QID PRN Dry Eyes 05/11/22 05/11/22 History % eye drops (Refresh Tears) coQ10 (ubiquinol) 200 mg capsule 200 mg PO DAILY 05/11/22 05/11/22 History diclofenac sodium 1 % topical gel 0 g topical QID PRN Pain 05/11/22 05/11/22 History fluticasone propionate 50 2 spray intranasal DAILY 05/11/22 05/11/22 History mcg/actuation nasal spray,suspension (Flonase Allergy Relief) gabapentin 100 mg capsule 200 mg PO BID 05/11/22 05/11/22 History lisinopril 10 mg tablet 10 mg PO DAILY 05/11/22 05/11/22 History loperamide 2 mg tablet (Imodium 2 mg PO DIRECTED PRN Diarrhea 05/11/22 05/11/22 History A-D) magnesium hydroxide 400 mg/5 mL 30 ml PO DIRECTED PRN 05/11/22 05/11/22 History oral suspension (Milk of Magnesia) Constipation melatonin 3 mg tablet 6 mg PO HS 05/11/22 05/11/22 History metoprolol succinate 25 mg 25 mg PO DAILY 05/11/22 05/11/22 History tablet,extended release 24 hr omega-3 fatty acids 1,000 mg 1,000 mg PO DAILY 05/11/22 05/11/22 History capsule polyethylene glycol 3350 17 gram 17 g PO DAILY PRN Constipation 05/11/22 05/11/22 History oral powder packet (Miralax) potassium chloride 10 mEq 10 meq PO DAILY 05/11/22 05/11/22 History tablet,extended release rosuvastatin 20 mg tablet 20 mg PO DAILY 05/11/22 05/11/22 History saliva stimulant comb. no.3 2 spray mucous membrane .Q2HR PRN 05/11/22 05/11/22 History (Biotene Moisturizing Mouth Dry Mouth mucosal spray) sertraline 50 mg tablet 50 mg PO DAILY 05/11/22 05/11/22 History sodium chloride-aloe vera nasal 1 ea intranasal QID PRN dryness 05/11/22 05/11/22 History swab torsemide 20 mg tablet 20 mg PO Q OTHER DAY 05/11/22 05/11/22 History vitamin B complex 1 tab PO DAILY 05/11/22 05/11/22 History warfarin 5 mg tablet 5 mg PO MOWEFR 05/11/22 05/11/22 History warfarin 6 mg tablet 6 mg PO .TUTHSASU 05/11/22 05/11/22 History Past Med/Surg History Medical History (Updated 05/12/22 @ 14:20 by Cherry Aldridge MD) Aortic valve disease 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 Atrial fibrillation On Coumadin - rate controlled per cardio CAD (coronary artery disease) S/p 5 vessel CABG Chronic systolic (congestive) heart failure Improved volume status and dyspnea with initiation of diuretic per 09/2020 cardio records Cranial nerve palsy CVA (cerebral vascular accident) Per records dating back to 2014, patient denies Depression GERD (gastroesophageal reflux disease) HTN (hypertension) Hyperlipidemia Intraventricular conduction delay Chronic per records Ischemic cardiomyopathy Mild decline in LVEF per 09/2020 ECHO (EF 25-30%) Surgical History Aortic valve replaced (during CABG- 2002) History of cholecystectomy History of hip surgery Right hip nailin07/03/20: Grade view 2, MAC#3, ETT 7.5 at [facility] S/P CABG x 5 2002 Family History Unknown No problems noted. Father , 77 Myocardial infarction Brother Diabetes Social History Smoking Status: Former smoker Tobacco Type: Smokeless Tobacco (Dip or Chew) Second Hand Exposure: No; Hx Alcohol Use: Yes Alcohol type: beer and wine Hx Substance Use: No Preferred Language: Mohawk Communication Ability: Effective Corn Cutter Required: No Beliefs That Will Affect Care: Buddhist Buddhist Beliefs: Voodoo; no specific beliefs affecting care marital status: / Current Living Situation: Personal Care Facility Current Living Situation Comment: in Personal Care at [place] [facility] How many Children do You have: 2 Feels Safe at Home: Yes Assistive Devices: Walker Review of Systems Review of Systems: Denies current fever, chills, headache, changes in vision, hearing, taste, and smell, chest pain, SOB, cough, abdominal pain, nausea, vomiting, diarrhea, hematemesis, melena, dysuria, hematuria, and recent falls. All systems have been reviewed and are otherwise negative. Physical Exam Physical Exam: Physical Exam: General: In no acute distress, stated age, well-nourished, good hygiene HEENT: Normocephalic, atraumatic, no scleral icterus, pupils around round, symmetrical, and reactive to light, moist mucus membranes, trachea midline, no thyromegaly Chest/Pulm: No respiratory distress, symmetrical chest expansion, clear breath sounds throughout Cardiac: bradycardic rate, irregular rhythm, systolic murmur noted on exam Abdomen: Patient with large right lateral abdominal hematoma which I outlined with a skin pen for accurate monitoring, overlying erythema also noted, the area is firm and non-tender to palpation, normoactive bowel sounds, soft and non- tender to palpation throughout Musculoskeletal: Symmetrical and without signs of acute trauma, upper and lower extremities with full ROM, no atrophy, spasticity, or flaccidity Extremities: Radial, dorsalis pedis, and posterior tibial pulses are intact and symmetrical, no edema noted in the BL LE's Skin: Warm, dry, no rashes , lesions, or scars noted Neuro: Alert and oriented to person, place, month, year, and president, no focal defects, CN II-XII tested and intact, finger to nose test negative, no tremors noted Psych: No acute distress, calm and cooperative during the exam Results & Data Results & Data ([facility]) Vital Signs (Past 12 Hours) Vital Signs Temp Pulse Pulse Resp BP BP Pulse Ox 05/11/22 16:50 57 L 13 05/11/22 16:40 56 L 15 05/11/22 16:30 48 L 21 05/11/22 16:30 146/77 H 05/11/22 16:20 58 L 22 05/11/22 16:10 57 L 20 05/11/22 16:01 140/99 05/11/22 16:01 74 20 05/11/22 16:00 68 17 05/11/22 15:50 53 L 20 95 05/11/22 15:40 53 L 20 97 05/11/22 15:30 63 18 91 05/11/22 15:30 148/77 H 05/11/22 15:20 55 L 19 98 05/11/22 15:10 56 L 22 96 05/11/22 15:01 148/81 H 05/11/22 15:01 53 L 19 95 05/11/22 15:00 51 L 15 87 L 05/11/22 13:17 56 L 18 97 05/11/22 13:11 36.4 C L 54 L 16 143/78 H 96 05/11/22 13:11 36.4 C L 54 L 16 143/78 H 96 O2 Del Method 05/11/22 16:50 05/11/22 16:40 05/11/22 16:30 05/11/22 16:30 05/11/22 16:20 05/11/22 16:10 05/11/22 16:01 05/11/22 16:01 05/11/22 16:00 05/11/22 15:50 05/11/22 15:40 05/11/22 15:30 05/11/22 15:30 05/11/22 15:20 05/11/22 15:10 05/11/22 15:01 05/11/22 15:01 05/11/22 15:00 05/11/22 13:17 Room Air 05/11/22 13:11 Room Air 05/11/22 13:11 Room Air Laboratory Results Abnormal lab results 05/11/22 05/11/22 05/11/22 Range/Units 13:09 13:09 13:50 WBC 16.31 H (4.8-10.8) K/ul RBC 4.27 L (4.63-6.08) M/uL Hgb 11.1 L (14.0-18.0) g/dl Hct 35.2 L (40.1-51.0) % MCHC 31.5 L (32.0-36.0) g/dL RDW Std Deviation 53.1 H (36.4-46.3) fL RDW Coeff of Miller 17.7 H (11.5-14.5) % Neut # (Auto) 13.79 H (1.4-6.5) K/uL Lymph # (Auto) 0.50 L (1.2-3.4) K/uL [place] # (Auto) 1.60 H (0.24-0.82) K/uL Immature Gran # (Auto) 0.11 H (0.00-0.02) K/uL Sodium 133 L (136-145) mmol/L BUN/Creatinine Ratio 30.3 H (10-20) Urine Blood Trace H (Negative) Diagnostic Findings Abdomen/Pelvis CT 05/11/22 13:16 CT SCAN OF THE ABDOMEN AND PELVIS WITH IV CONTRAST CLINICAL HISTORY: Right-sided abdominal pain. COMPARISON STUDY: Abdominal CT dated 10/13/2017. TECHNIQUE: Following the IV administration of 88 cc of Optiray 350, CT scan of the abdomen and pelvis is performed from the lung bases to the proximal femora. Images are reviewed in the axial, sagittal, and coronal planes. IV contrast was administered without complication. A dose lowering technique was utilized adhering to the principles of ALARA. The examination is degraded by motion artifact, as well as by streak artifact from the right arm which could not be elevated above the abdomen. CT DOSE: 946.11 mGycm FINDINGS: Lung bases: The patient is status post midline sternotomy and aortic valve surgery. The heart is enlarged and without pericardial effusion. The coronary arteries are densely calcified. There are small right and trace left pleural effusions with dependent scarring/ atelectasis. A small hiatal hernia is noted. Liver: The contrast-enhanced liver is normal in size, contour, and attenuation. There is no intrahepatic biliary ductal dilatation. The hepatic veins and portal veins are patent. Gallbladder: Surgically absent and clips in the gallbladder fossa. Spleen: Normal in size and attenuation. Pancreas: Moderately atrophic and grossly unremarkable. Adrenal glands: Unremarkable. Kidneys: The contrast enhanced kidneys demonstrate cortical atrophy and are without hydronephrosis. The kidneys enhance symmetrically. Abdominal vasculature: The abdominal aorta is normal in course and caliber noting advanced atherosclerotic calcification. Bowel: There is moderate colonic diverticulosis without CT evidence of acute diverticulitis. No bowel obstruction is seen. There is mild colonic fecal retention. The appendix is normal as visualized. Peritoneum: There is no intraperitoneal free air or abdominal ascites. Lymphadenopathy: None. Pelvic viscera: Evaluation of the pelvis is degraded by streak artifact from orthopedic hardware in the hips. The prostate gland is enlarged and heterogeneous due to median lobe hypertrophy. The bladder wall is thickened and trabeculated indicating chronic outlet obstruction. Tiny bladder diverticula are noted. Surgical clips are seen along the spermatic cord. Skeletal structures: The skeletal structures are osteopenic. There is moderate lumbosacral spondylosis. No lytic or blastic lesions are seen. Postoperative changes noted in the proximal femora bilaterally. There is a subacute appearing right posterior 11th rib fracture. Additional chronic rib fractures are seen bilaterally. Soft tissues: There is a large complex heterogeneous slightly hyperdense lesion/collection seen in the right abdominal wall musculature on axial image #202. This measures approximately 7 x 10 x 6 cm in aggregate dimension and there is overlying soft tissue stranding. The appearance favors a hematoma. No active extravasation is identified. A smaller similar appearing collection is seen in the right lower chest wall between the lateral 9th and 10th ribs on image #105. This measures approximately 5 x 3 x 1.5 cm. IMPRESSION: 1. There is approximately 10 cm complex lesion/collection identified in the right lateral abdominal wall musculature with overlying soft tissue stranding. The location and appearance favors an intramuscular hematoma. Clinical correlation will be required, and clinical follow-up to resolution is recommended to exclude the less likely possibility of underlying mass lesion. 2. A smaller similar-appearing collection is seen within the right lateral chest wall musculature between the 9th and 10th ribs. 3. There is no evidence of active extravasation at the time of examination. 4. Cardiomegaly with small right and trace left pleural effusions. 5. Colonic diverticulosis without CT evidence of acute diverticulitis. 6. There is a subacute appearing right posterior 11th rib fracture. Correlate for point tenderness. 7. Additional findings as above. ACT 112: Negative or not required by law. Electronically signed by: Cooper Cisse M.D. 05/11/2022 3:14 PM ECG Additional Comments: No ECG available at the time of admission Code Status & VTE Plan Code Status DNR/DNI VTE Prophylaxis Plan VTE Prophylaxis will be ordered: No Supervising Physician Co-Signing Physician Notes Patient seen and examined at bedside. During face to face encounter obtained a history and physical examination. I reviewed above note and agree with it. Plan of care discussed with patient and APC Peno. due to possible cellulittis, will obtain procal and monitor. If elevated will restart. PG Care Time/CCT Total # of Minutes Spent Total Time Spent with Patient: Total time spent is greater than 50% in coordination of care (as documented) at patient's floor/unit and/or counseling patient: C[place] [address] Initial Inpt Care Lvl 3 Patient Type Established Medical Decision Making High Complexity Diagnoses Abdominal wall hematoma S30.1XXA Atrial fibrillation I48.91 Ischemic cardiomyopathy I25.5 HTN (hypertension) I10 GERD (gastroesophageal reflux disease) K21.9 Depression F32.9 CAD (coronary artery disease) I25.10 Hyperlipidemia E78.5
[2022-05-11 17:59] LABS: Hematocrit (blood only) 34.3 % (40.1-51.0); Hemoglobin 10.7 g/dl (14.0-18.0)
[2022-05-11 18:14] LABS: INR 3.5 (0.9-1.1); Prothrombin Time 34.5 Seconds (9.0-12.0)
--- NOTE | 2022-05-11 18:43 | Surgery Consultation ---
Date of Consultation May 11, 2022 Assessment & Plan (1) Abdominal wall hematoma: pt is a 87 year-old male who presents to Er with right abdominal wall lump, IMP: right abdominal wall hematoma, Plan, I agree with hospitalist admit to hospital no surgery indication now, conservative treatment first, regular diet now, hold coumadin now, SCD, may start at 05/12/2022, 8AM , 81 mg ASA po once a day , WBC 16,000, start iv antibiotic, repeat labs in morning, will F/U, History of Present Illness Reason for Consultation: right abdominal wall hematoma Requesting Physician: Freeman Markham MD History of Present Illness History of Present Illness Chief Complaint: Right lateral abdominal wall mass Primary Care Provider: [facility] Anthony is an 87 year old male with a PMH significant for significant for CAD status post CABG x5 in 2002, 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 Per ED staff, the [facility] is a [facility]. Nursing staff noted a mass/swelling on the right abdominal wall which was not noticed before, because of this he was transported to the ED for evaluation. In the ED the patient was found to be afebrile, hemodynamically stable, and stable on room air. Labs were significant for a leukocytosis of 16.31 with left shift of 13.79, stable Hgb of 11.1, and sodium of 133. INR and PT were pending at the time of evaluation. CT of the abdomen and pelvis with IV contrast showed anapproximately 10 cm complex lesion/collection identified in the right lateral abdominal wall musculature with overlying soft tissue stranding. The location and appearance favors an intramuscular hematoma without evidence of acute extravasation. Cardiomegaly with small right and trace left pleural effusions, diverticulosis without diverticulitis, and a subacute appearing right posterior 11th rib fracture. In the Ed the patient was given 3g IV cefazolin due to possible cellulitis overlying the abdominal swelling. At the time of the exam the patient was resting comfortably in bed in no acute distress. He states that he believes he was brought into the hospital because of the swelling in his abdomen, he denies any issues at the time of the exam. When asked, he denies any recent trauma or falls, the only thing he can think of is that he had a very hard and difficult bowel movement yesterday. I called and spoke to the nursing staff at the [facility] as well. They tell me that he was doing well and in his normal state of health, he was able to go to the dinning room and eat breakfast. After breakfast he asked them to come to his room because he was not feeling well, when they examined him they noticed the large abdominal wall swelling and called EMS. They state that he last took his warfarin last night as scheduled and confirmed that he is a Full Code. They also denied of knowing any recent falls/trauma and state that he would likely be a resident who would tell them if anything had happened. I called and spoke to the patient's son (Anthony Quach [phone]) to update him on the situation and obtain more information. He states that he father frequently suffers from short-term memory loss but does not have an official diagnosis of Dementia. I explained the risks and benefits of of holding the patient's Warfarin to both the patient and his Son and they are both in agreement of holding it for now. I also spoke to them regarding code status as the current POLST form lists the patient as a FULL CODE. The patient clearly stated to me that he is 87 years old and at this time he would no longer want CPR or to be intubated as he has lived a good life. His son was in full agreement of his father's decision and does not think his father's quality of life would be good if CPR were performed. Due to their wishes I switched the patient to DNR/DNI. I also spoke to the patient and his son regarding a blood transfusion if one would be needed. I explained the risks and benefits to both and they were both in agreement that the patient would want a blood transfusion if needed; a blood consent was then filled out. I ( glenny harris MD ) got a call for consult right abdominal wall hematoma, I reviewed pt's H/P, labs Ct scan with pt, pt denies any abdominal pain, pt is on coumadin for A-fib. Allergies Allergy/AdvReac Type Severity Reaction Status Date / Time Sulfa (Sulfonamide AdvReac Intermediate Unknown Verified 05/11/22 17:38 Antibiotics) Home Medications Medication Instructions Recorded Confirmed Type acetaminophen 500 mg tablet 500 mg PO Q4 PRN Pain 05/11/22 05/11/22 H istory (Tylenol Extra Strength) acetaminophen 500 mg tablet 500 mg PO QID 05/11/22 05/11/22 His tory (Tylenol Extra Strength) acyclovir 5 % topical ointment 1 applic topical AMPM 05/11/22 2 History amoxicillin 500 mg capsule 2,000 mg PO DIRECTED 05/11/22 05/11/22 History aspirin 81 mg tablet,delayed 81 mg PO DAILY 05/11/22 05/11/22 Hi story release carboxymethylcellulose sodium 0.5 2 drp OPB QID PRN Dry Eyes 05/11/22 05/11/22 History % eye drops (Refresh Tears) coQ10 (ubiquinol) 200 mg capsule 200 mg PO DAILY 05/11/22 2 History diclofenac sodium 1 % topical gel 0 g topical QID PRN Pain 05/11/22 0 05/11/22 History fluticasone propionate 50 2 spray intranasal DAILY 05/11/22 05/11/22 History mcg/actuation nasal spray,suspension (Flonase Allergy Relief) gabapentin 100 mg capsule 200 mg PO BID 05/11/22 05/11/22 Histo ry lisinopril 10 mg tablet 10 mg PO DAILY 05/11/22 05/11/22 History loperamide 2 mg tablet (Imodium 2 mg PO DIRECTED PRN Diarrhea 05/11/22 05/11/22 History A-D) magnesium hydroxide 400 mg/5 mL 30 ml PO DIRECTED PRN 05/11/22 History oral suspension (Milk of Magnesia) Constipation melatonin 3 mg tablet 6 mg PO HS 05/11/22 05/11/22 History metoprolol succinate 25 mg 25 mg PO DAILY 05/11/22 05/11/22 Hist ory tablet,extended release 24 hr omega-3 fatty acids 1,000 mg 1,000 mg PO DAILY 05/11/22 05/11/22 Hi story capsule polyethylene glycol 3350 17 gram 17 g PO DAILY PRN Constipation 05/11/22 05/11/22 History oral powder packet (Miralax) potassium chloride 10 mEq 10 meq PO DAILY 05/11/22 05/11/22 Histo ry tablet,extended release rosuvastatin 20 mg tablet 20 mg PO DAILY 05/11/22 05/11/22 Histo ry saliva stimulant comb. no.3 2 spray mucous membrane .Q2HR PRN 05/11/22 05/11/22 History (Biotene Moisturizing Mouth Dry Mouth mucosal spray) sertraline 50 mg tablet 50 mg PO DAILY 05/11/22 05/11/22 History sodium chloride-aloe vera nasal 1 ea intranasal QID PRN dryness 05/11/22 05/11/22 History swab torsemide 20 mg tablet 20 mg PO Q OTHER DAY 05/11/22 05/11/22 History vitamin B complex 1 tab PO DAILY 05/11/22 05/11/22 History warfarin 5 mg tablet 5 mg PO MOWEFR 05/11/22 05/11/22 History warfarin 6 mg tablet 6 mg PO .TUTHSASU 05/11/22 05/11/22 History Past Med/Surg History Medical History(Updated 05/11/22 @ 17:56 by Freeman Molina PA-C) Aortic valve disease 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Atrial fibrillation On Coumadin - rate controlled per cardioCAD (coronary artery disease) S/p 5 vessel CABGChronic systolic (congestive) heart failure Improved volume status and dyspnea with initiation of diuretic per 09/2020 cardio recordsCranial nerve palsy CVA (cerebral vascular accident) Per records dating back to 2014, patient deniesDepression GERD (gastroesophageal reflux disease) HTN (hypertension) Hyperlipidemia Intraventricular conduction delay Chronic per recordsIschemic cardiomyopathy Mild decline in LVEF per 09/2020 ECHO (EF 25-30%) Surgical History Aortic valve replaced (during CABG- 2002)History of cholecystectomy History of hip surgery Right hip nailin07/03/20: Grade view 2, MAC#3, ETT 7.5 at [facility]/P CABG x 5 2002 Family History Unknown No problems noted. Father , 77 Myocardial infarctionBrother Diabetes Social History Smoking Status: Never smoker Tobacco Type: Smokeless Tobacco (Dip or Chew) Second Hand Exposure: No; Hx Alcohol Use: No Hx Substance Use: No Preferred Language: Turkmen Communication Ability: Effective Block Setter [place] Required: No Beliefs That Will Affect Care: None marital status: / Current Living Situation: [facility] Feels Safe at Home: Yes Assistive Devices: Walker Review of Systems Review of Systems: Denies current fever, chills, headache, changes in vision, hearing, taste, and smell, chest pain, SOB, cough, abdominal pain, nausea, vomiting, diarrhea, hematemesis, melena, dysuria, hematuria, and recent falls. All systems have been reviewed and are otherwise negative. Allergies Allergy/AdvReac Type Severity Reaction Status Date / Time Sulfa (Sulfonamide AdvReac Intermediate Unknown Verified 05/11/22 17:38 Antibiotics) Home Medications Medication Instructions Recorded Confirmed Type acetaminophen 500 mg tablet 500 mg PO Q4 PRN Pain 05/11/22 05/11/22 History (Tylenol Extra Strength) acetaminophen 500 mg tablet 500 mg PO QID 05/11/22 05/11/22 History (Tylenol Extra Strength) acyclovir 5 % topical ointment 1 applic topical AMPM 05/11/22 05/11/22 History amoxicillin 500 mg capsule 2,000 mg PO DIRECTED 05/11/22 05/11/22 History aspirin 81 mg tablet,delayed 81 mg PO DAILY 05/11/22 05/11/22 History release carboxymethylcellulose sodium 0.5 2 drp OPB QID PRN Dry Eyes 05/11/22 05/11/22 History % eye drops (Refresh Tears) coQ10 (ubiquinol) 200 mg capsule 200 mg PO DAILY 05/11/22 05/11/22 History diclofenac sodium 1 % topical gel 0 g topical QID PRN Pain 05/11/22 05/11/22 History fluticasone propionate 50 2 spray intranasal DAILY 05/11/22 05/11/22 History mcg/actuation nasal spray,suspension (Flonase Allergy Relief) gabapentin 100 mg capsule 200 mg PO BID 05/11/22 05/11/22 History lisinopril 10 mg tablet 10 mg PO DAILY 05/11/22 05/11/22 History loperamide 2 mg tablet (Imodium 2 mg PO DIRECTED PRN Diarrhea 05/11/22 05/11/22 History A-D) magnesium hydroxide 400 mg/5 mL 30 ml PO DIRECTED PRN 05/11/22 05/11/22 History oral suspension (Milk of Magnesia) Constipation melatonin 3 mg tablet 6 mg PO HS 05/11/22 05/11/22 History metoprolol succinate 25 mg 25 mg PO DAILY 05/11/22 05/11/22 History tablet,extended release 24 hr omega-3 fatty acids 1,000 mg 1,000 mg PO DAILY 05/11/22 05/11/22 History capsule polyethylene glycol 3350 17 gram 17 g PO DAILY PRN Constipation 05/11/22 05/11/22 History oral powder packet (Miralax) potassium chloride 10 mEq 10 meq PO DAILY 05/11/22 05/11/22 History tablet,extended release rosuvastatin 20 mg tablet 20 mg PO DAILY 05/11/22 05/11/22 History saliva stimulant comb. no.3 2 spray mucous membrane .Q2HR PRN 05/11/22 05/11/22 History (Biotene Moisturizing Mouth Dry Mouth mucosal spray) sertraline 50 mg tablet 50 mg PO DAILY 05/11/22 05/11/22 History sodium chloride-aloe vera nasal 1 ea intranasal QID PRN dryness 05/11/22 05/11/22 History swab torsemide 20 mg tablet 20 mg PO Q OTHER DAY 05/11/22 05/11/22 History vitamin B complex 1 tab PO DAILY 05/11/22 05/11/22 History warfarin 5 mg tablet 5 mg PO MOWEFR 05/11/22 05/11/22 History warfarin 6 mg tablet 6 mg PO .TUTHSASU 05/11/22 05/11/22 History Patient History Medical History (Updated 05/11/22 @ 17:56 by Freeman Molina PA-C) Aortic valve disease 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 Atrial fibrillation On Coumadin - rate controlled per cardio CAD (coronary artery disease) S/p 5 vessel CABG Chronic systolic (congestive) heart failure Improved volume status and dyspnea with initiation of diuretic per 09/2020 cardio records Cranial nerve palsy CVA (cerebral vascular accident) Per records dating back to 2014, patient denies Depression GERD (gastroesophageal reflux disease) HTN (hypertension) Hyperlipidemia Intraventricular conduction delay Chronic per records Ischemic cardiomyopathy Mild decline in LVEF per 09/2020 ECHO (EF 25-30%) Surgical History Aortic valve replaced (during CABG- 2002) History of cholecystectomy History of hip surgery Right hip nailin07/03/20: Grade view 2, MAC#3, ETT 7.5 at [facility] S/P CABG x 5 2002 Family History Unknown No problems noted. Father , 77 Myocardial infarction Brother Diabetes Social History Smoking Status: Never smoker Tobacco Type: Smokeless Tobacco (Dip or Chew) Second Hand Exposure: No; Hx Alcohol Use: No Hx Substance Use: No Preferred Language: Turkmen Communication Ability: Effective Block Setter [place] Required: No Beliefs That Will Affect Care: None marital status: / Current Living Situation: [facility] Comment[place] [facility] Feels Safe at Home: Yes Assistive Devices: Walker Physical Exam Constitutional: WD/WN, vitals as above Eyes: PERRL, conjunctivae normal, anicteric sclerae Neck: trachea midline, no thyromegaly Respiratory: normal respiratory effort, lungs clear to auscultation Cardiovascular: RRR, no murmur, no edema (A-Fib) Rate/Rhythm: + irregularly irregular Gastrointestinal (Abdomen): soft, can feel abdominal lump on right side abdomen, no tenderness, mild skin redness, BS +, Neurologic: patellar DTR's 2+ bilat, sensation intact Psychiatric: A+Ox3, euthymic affect Results & Data ([facility]) Vital Signs (Past 12 Hours) Vital Signs Temp Pulse Pulse Resp BP BP Pulse Ox 05/11/22 16:50 57 L 13 05/11/22 16:40 56 L 15 05/11/22 16:30 48 L 21 05/11/22 16:30 146/77 H 05/11/22 16:20 58 L 22 05/11/22 16:10 57 L 20 05/11/22 16:01 140/99 05/11/22 16:01 74 20 05/11/22 16:00 68 17 05/11/22 15:50 53 L 20 95 05/11/22 15:40 53 L 20 97 05/11/22 15:30 63 18 91 05/11/22 15:30 148/77 H 05/11/22 15:20 55 L 19 98 05/11/22 15:10 56 L 22 96 05/11/22 15:01 148/81 H 05/11/22 15:01 53 L 19 95 05/11/22 15:00 51 L 15 87 L 05/11/22 13:17 56 L 18 97 05/11/22 13:11 36.4 C L 54 L 16 143/78 H 96 05/11/22 13:11 36.4 C L 54 L 16 143/78 H 96 O2 Del Method 05/11/22 16:50 05/11/22 16:40 05/11/22 16:30 05/11/22 16:30 05/11/22 16:20 05/11/22 16:10 05/11/22 16:01 05/11/22 16:01 05/11/22 16:00 05/11/22 15:50 05/11/22 15:40 05/11/22 15:30 05/11/22 15:30 05/11/22 15:20 05/11/22 15:10 05/11/22 15:01 05/11/22 15:01 05/11/22 15:00 05/11/22 13:17 Room Air 05/11/22 13:11 Room Air 05/11/22 13:11 Room Air Laboratory Results Abnormal lab results 05/11/22 05/11/22 05/11/22 Range/Units 13:09 13:09 13:50 WBC 16.31 H (4.8-10.8) K/ul RBC 4.27 L (4.63-6.08) M/uL Hgb 11.1 L (14.0-18.0) g/dl Hct 35.2 L (40.1-51.0) % MCHC 31.5 L (32.0-36.0) g/dL RDW Std Deviation 53.1 H (36.4-46.3) fL RDW Coeff of Miller 17.7 H (11.5-14.5) % Neut # (Auto) 13.79 H (1.4-6.5) K/uL Lymph # (Auto) 0.50 L (1.2-3.4) K/uL Rowan # (Auto) 1.60 H (0.24-0.82) K/uL Immature Gran # (Auto) 0.11 H (0.00-0.02) K/uL PT (9.0-12.0) Seconds INR (0.9-1.1) Sodium 133 L (136-145) mmol/L BUN/Creatinine Ratio 30.3 H (10-20) Urine Blood Trace H (Negative) 05/11/22 05/11/22 Range/Units 17:51 17:51 WBC (4.8-10.8) K/ul RBC (4.63-6.08) M/uL Hgb 10.7 L (14.0-18.0) g/dl Hct 34.3 L (40.1-51.0) % MCHC (32.0-36.0) g/dL RDW Std Deviation (36.4-46.3) fL RDW Coeff of Miller (11.5-14.5) % Neut # (Auto) (1.4-6.5) K/uL Lymph # (Auto) (1.2-3.4) K/uL Rowan # (Auto) (0.24-0.82) K/uL Immature Gran # (Auto) (0.00-0.02) K/uL PT 34.5 H (9.0-12.0) Seconds INR 3.5 H (0.9-1.1) Sodium (136-145) mmol/L BUN/Creatinine Ratio (10-20) Urine Blood (Negative) Diagnostic Findings CT SCAN OF THE ABDOMEN AND PELVIS WITH IV CONTRAST CLINICAL HISTORY: Right-sided abdominal pain. COMPARISON STUDY: Abdominal CT dated 10/13/2017. TECHNIQUE: Following the IV administration of 88 cc of Optiray 350, CT scan of the abdomen and pelvis is performed from the lung bases to the proximal femora. Images are reviewed in the axial, sagittal, and coronal planes. IV contrast was administered without complication. A dose lowering technique was utilized adhering to the principles of ALARA. The examination is degraded by motion artifact, as well as by streak artifact from the right arm which could not be elevated above the abdomen. CT DOSE: 946.11 mGycm FINDINGS: Lung bases: The patient is status post midline sternotomy and aortic valve surgery. The heart is enlarged and without pericardial effusion. The coronary arteries are densely calcified. There are small right and trace left pleural effusions with dependent scarring/ atelectasis. A small hiatal hernia is noted. Liver: The contrast-enhanced liver is normal in size, contour, and attenuation. There is no intrahepatic biliary ductal dilatation. The hepatic veins and portal veins are patent. Gallbladder: Surgically absent and clips in the gallbladder fossa. Spleen: Normal in size and attenuation. Pancreas: Moderately atrophic and grossly unremarkable. Adrenal glands: Unremarkable. Kidneys: The contrast enhanced kidneys demonstrate cortical atrophy and are without hydronephrosis. The kidneys enhance symmetrically. Abdominal vasculature: The abdominal aorta is normal in course and caliber noting advanced atherosclerotic calcification. Bowel: There is moderate colonic diverticulosis without CT evidence of acute diverticulitis. No bowel obstruction is seen. There is mild colonic fecal retention. The appendix is normal as visualized. Peritoneum: There is no intraperitoneal free air or abdominal ascites. Lymphadenopathy: None. Pelvic viscera: Evaluation of the pelvis is degraded by streak artifact from orthopedic hardware in the hips. The prostate gland is enlarged and heterogeneous due to median lobe hypertrophy. The bladder wall is thickened and trabeculated indicating chronic outlet obstruction. Tiny bladder diverticula are noted. Surgical clips are seen along the spermatic cord. Skeletal structures: The skeletal structures are osteopenic. There is moderate lumbosacral spondylosis. No lytic or blastic lesions are seen. Postoperative changes noted in the proximal femora bilaterally. There is a subacute appearing right posterior 11th rib fracture. Additional chronic rib fractures are seen bilaterally. Soft tissues: There is a large complex heterogeneous slightly hyperdense lesion/collection seen in the right abdominal wall musculature on axial image #202. This measures approximately 7 x 10 x 6 cm in aggregate dimension and there is overlying soft tissue stranding. The appearance favors a hematoma. No active extravasation is identified. A smaller similar appearing collection is seen in the right lower chest wall between the lateral 9th and 10th ribs on image #105. This measures approximately 5 x 3 x 1.5 cm. IMPRESSION: 1. There is approximately 10 cm complex lesion/collection identified in the right lateral abdominal wall musculature with overlying soft tissue stranding. The location and appearance favors an intramuscular hematoma. Clinical correlation will be required, and clinical follow-up to resolution is recommended to exclude the less likely possibility of underlying mass lesion. 2. A smaller similar-appearing collection is seen within the right lateral chest wall musculature between the 9th and 10th ribs. 3. There is no evidence of active extravasation at the time of examination. 4. Cardiomegaly with small right and trace left pleural effusions. 5. Colonic diverticulosis without CT evidence of acute diverticulitis. 6. There is a subacute appearing right posterior 11th rib fracture. Correlate for point tenderness. 7. Additional findings as above.
[2022-05-11] MEDS ORDERED: PHYTONADIONE 5 MG TAB PO STA (19:51)
[2022-05-11] MEDS ORDERED: ACETAMINOPHEN 325 MG TAB PO PRN (20:51)
--- NOTE | 2022-05-11 21:50 | Communication Note ---
Date of Service: May 11, 2022 Messaged by nursing about NPO. Reviewed chart, specifically gen surg's note. Conservative treatment for now w/ abx. Baby asa daily: currently held in setting of hematoma. Does have history of ischemic cardiomyopathy. Extending the one time Ancef order received in the ED. Ordering diet. repeat H/H: Hb 11.1->10.7->10.2. continue monitoring and following cbc
[2022-05-11] MEDS: LACTATED RINGER'S 1,000 ML IV SCH (22:21)
[2022-05-11] MEDS: FAMOTIDINE 20 MG TAB PO SCH (23:28)
[2022-05-11] MEDS: GABAPENTIN 100 MG CAP PO SCH (23:30)
[2022-05-11] MEDS: MELATONIN 3 MG TAB PO SCH (23:35)
[2022-05-12 00:42] LABS: Hematocrit (blood only) 32.4 % (40.1-51.0); Hemoglobin 10.2 g/dl (14.0-18.0)
[2022-05-12] MEDS: ceFAZolin 2000MG 2,000 MG/15 ML SYR IV SCH ×3 (04:22→19:39)
[2022-05-12 06:21] LABS: Hematocrit (blood only) 32.9 % (40.1-51.0); Hemoglobin 10.6 g/dl (14.0-18.0)
[2022-05-12 06:32] LABS: INR 2.9 (0.9-1.1); Prothrombin Time 29.3 Seconds (9.0-12.0)
[2022-05-12 07:25] LABS: Albumin Globulin Ratio 1.1 (0.9-2); Albumin Level 3.5 gm/dl (3.4-5.0); BUN Creatinine Ratio 24.7 (10-20); Calcium 9.1 mg/dl (8.5-10.1); Est GFR (African American) 97.3 ml/min; Globulin 3.1 gm/dl (2.5-4.0); Potassium 4.1 mmol/L (3.5-5.1); Total Protein 6.6 gm/dl (6.0-8.3)
[2022-05-12] MEDS: GABAPENTIN 100 MG CAP PO SCH ×2 (07:52→19:39)
[2022-05-12] MEDS: ROSUVASTATIN CALCIUM 20 MG TAB PO SCH (07:53)
[2022-05-12] MEDS: SERTRALINE HCL 50 MG TABLET PO SCH (07:53)
[2022-05-12] MEDS: FAMOTIDINE 20 MG TAB PO SCH ×2 (07:53→19:39)
[2022-05-12] MEDS: METOPROLOL SUCC 25MG EXT REL TAB PO SCH (07:53)
[2022-05-12] MEDS ORDERED: NON-FORMULARY MEDICATION (Coq10 (Ubiquinol) 200 mg Capsule) PO SCH (09:00)
[2022-05-12] MEDS: LACTATED RINGER'S 1,000 ML IV SCH (09:21)
[2022-05-12 11:55] LABS: Hematocrit (blood only) 33.5 % (40.1-51.0); Hemoglobin 10.8 g/dl (14.0-18.0)
--- NOTE | 2022-05-12 14:18 | Hospitalist Progress Note ---
Date of Service May 12, 2022 Assessment & Plan (1) Abdominal wall hematoma: Plan: -Patient is currently afebrile, hemodynamically stable, and stable on room air -Abdominal wall swelling noticed [facility], CT showing intramuscular hematoma without acute extravasation and stranding overlying the soft tissue - Hgb is currently stable at 10.7, -INR 2.9, Warfarin on hold. Given a dose of Vit K Has been evaluated by surgery, no surgical procedures indicated for now -Will receck CT abdomen tomorrow to monitor progress of hematoma -Repeating an H&H now and then will monitor q6h, transfuse for a Hgb less than 7 -AM CMP (2) Leucocytosis: Plan: most likley stress related no evidence of infection However, currently oc Cefazolin, will continue until cultures result (3) Atrial fibrillation: Plan: -Currently rate controlled -Last dose of Coumadin was last night, will need to hold for now with current hematoma, patient and son are in agreement -Will continue [employer]IES MANAGEMENT EXECUTIVE metoprolol for rate control (4) Ischemic cardiomyopathy: Plan: -Noted to have a LVEF of 45%, does not examine volume overloaded -Will hold [employer]NAGEMENT EXECUTIVE diuretics for now to ensure his BP remians stable, can restart during admission if he becomes volume overloaded or if his BP remains stable (5) HTN (hypertension): Plan: -Hold [employer]NAGEMENT EXECUTIVE lisinopril for now to prevent hypotension (6) GERD (gastroesophageal reflux disease): Plan: -Will add famotidine for stress ulcer PPX (7) Depression: Plan: -F[employer]IES MANAGEMENT EXECUTIVE sertraline (8) CAD (coronary artery disease): Plan: -Hold [employer]NAGEMENT EXECUTIVE aspirin for now (9) Hyperlipidemia: Plan: -F[employer]IES MANAGEMENT EXECUTIVE statin Plan The patient was discussed with Dr. Cary at the time of admission Admission and Anticipated Discharge Date Admission Date: May 11, 2022 Subjective patient seen and examined, family by the bedside, no new complaints Review of Systems Review of Systems: All systems reviewed are negative, apart from the ones contained in the history. Results & Data Results & Data ([facility]) Vital Signs (Past 12 Hours) Vital Signs Temp Pulse Pulse Resp BP Pulse Ox O2 Del Method 05/12/22 11:41 97.7 F 63 19 113/69 95 Room Air 05/12/22 09:40 Room Air 05/12/22 09:12 64 09/24/22 06:38 98.4 F 61 20 151/82 H 96 Room Air 05/12/22 03:32 98.8 F 86 20 153/84 H 93 Room Air PG Care Time/CCT Total # of Minutes Spent Total Time Spent with Patient: Total time spent is greater than 50% in coordination of care (as documented) at patient's floor/unit and/or counseling patient: Coding Level of Care Code 47746 Subseq Hosp Care Lvl 2 Diagnoses Abdominal wall hematoma S30.1XXA Leucocytosis D72.829 Atrial fibrillation I48.91 Ischemic cardiomyopathy I25.5 HTN (hypertension) I10 GERD (gastroesophageal reflux disease) K21.9 Depression F32.9 CAD (coronary artery disease) I25.10 Hyperlipidemia E78.5 Time Spent (min) 35
[2022-05-12 18:46] LABS: Hematocrit (blood only) 32.8 % (40.1-51.0); Hemoglobin 10.4 g/dl (14.0-18.0)
[2022-05-12] MEDS: MELATONIN 3 MG TAB PO SCH (19:40)
[2022-05-13] MEDS: ceFAZolin 2000MG 2,000 MG/15 ML SYR IV SCH ×2 (04:24→13:35)
[2022-05-13 07:33] LABS: INR 1.5 (0.9-1.1); Prothrombin Time 15.6 Seconds (9.0-12.0)
[2022-05-13 07:47] LABS: Albumin Globulin Ratio 1.2 (0.9-2); Albumin Level 3.4 gm/dl (3.4-5.0); BUN Creatinine Ratio 25.4 (10-20); Bilirubin,Total 1.1 mg/dl (0.2-1.0); Calcium 8.7 mg/dl (8.5-10.1); Creatinine Clr Calc Pharmacy 81.7 ml/min; Est GFR (African American) 100.8 ml/min; Globulin 2.9 gm/dl (2.5-4.0); Potassium 3.9 mmol/L (3.5-5.1); Total Protein 6.3 gm/dl (6.0-8.3)
[2022-05-13] MEDS: FAMOTIDINE 20 MG TAB PO SCH (08:13)
[2022-05-13] MEDS: METOPROLOL SUCC 25MG EXT REL TAB PO SCH (08:13)
[2022-05-13] MEDS: SERTRALINE HCL 50 MG TABLET PO SCH (08:13)
[2022-05-13] MEDS: ROSUVASTATIN CALCIUM 20 MG TAB PO SCH (08:13)
[2022-05-13] MEDS: GABAPENTIN 100 MG CAP PO SCH (08:13)
--- NOTE | 2022-05-13 09:56 | Surgery Progress Note ---
Date of Service May 13, 2022 Assessment & Plan (1) Abdominal wall hematoma: Plan: pt is a 87 year-old male who presents to Er with right abdominal wall lump, IMP: right abdominal wall hematoma, Plan, I agree with hospitalist admit to hospital no surgery indication now, conservative treatment first, regular diet now, hold coumadin now, SCD, may start at 05/12/2022, 8AM , 81 mg ASA po once a day , WBC 16,000, start iv antibiotic, repeat labs in morning, will F/U, 05/13/2022 9:54AM stable, no surgery indication now, may resume coumadin, may discharge today or tomorrow, sign off today, please call with questions, thanks, Admission and Anticipated Discharge Date Admission Date: May 11, 2022 Subjective patient seen and examined, family by the bedside, no new complaints 05/13/2022, 9:51AM Dr. Ya F/U abdominal wall hematoma, stable, no abdominal pain, no complaints, Physical Exam Constitutional: WD/WN, vitals as above Eyes: PERRL, conjunctivae normal, anicteric sclerae Neck: trachea midline, no thyromegaly Respiratory: normal respiratory effort, lungs clear to auscultation Cardiovascular: RRR, no murmur, no edema (A-Fib) Rate/Rhythm: + irregularly irregular Gastrointestinal (Abdomen): soft, NT, ND, right side abdominal wall hematoma stable, Neurologic: patellar DTR's 2+ bilat, sensation intact Psychiatric: A+Ox3, euthymic affect Results & Data ([facility]) Vital Signs (Past 12 Hours) Vital Signs Temp Pulse Pulse Resp BP Pulse Ox O2 Del Method 05/13/22 07:51 37.0 C 94 H 18 143/78 H 97 Room Air 05/13/22 03:58 36.9 C 61 18 132/70 93 Room Air 05/12/22 22:14 58 L 05/13/22 00:20 36.6 C 60 18 136/79 94 Room Air Laboratory Results Abnormal lab results 05/12/22 05/12/22 05/13/22 Range/Units 11:46 18:10 06:52 Hgb 10.8 L 10.4 L (14.0-18.0) g/dl Hct 33.5 L 32.8 L (40.1-51.0) % PT 15.6 H (9.0-12.0) Seconds INR 1.5 H (0.9-1.1) Sodium (136-145) mmol/L BUN/Creatinine Ratio (10-20) Total Bilirubin (0.2-1.0) mg/dl ALT (7-52) U/L 05/13/22 Range/Units 06:52 Hgb (14.0-18.0) g/dl Hct (40.1-51.0) % PT (9.0-12.0) Seconds INR (0.9-1.1) Sodium 132 L (136-145) mmol/L BUN/Creatinine Ratio 25.4 H (10-20) Total Bilirubin 1.1 H (0.2-1.0) mg/dl ALT 6 L (7-52) U/L
--- NOTE | 2022-05-13 10:26 | CT Scan Report ---
CT SCAN OF THE ABDOMEN AND PELVIS WITHOUT IV CONTRAST CLINICAL HISTORY: Follow-up hematoma. COMPARISON STUDY: Abdominal CT dated scans dated 05/11/2022 and 10/13/2017. TECHNIQUE: Unenhanced CT scan of the abdomen and pelvis is performed from the lung bases to the proxi mal femora. Images are reviewed in the axial, sagittal, and coronal planes. IV contrast was not admin istered for this examination. A dose lowering technique was utilized adhering to the principles of AL ALMITA. There is streak artifact from the arms which could not be elevated above the abdomen. There is a lso motion artifact. CT DOSE: 811.86 mGy.cm FINDINGS: Lung bases: The patient is status post midline sternotomy and aortic valve surgery. The heart is enla rged and without pericardial effusion. The coronary arteries are densely calcified. There are small p leural effusions, right larger than left with dependent atelectasis. These have increased in size fro m previous. Intralobular septal thickening is noted at the lung bases. A small hiatal hernia is noted . Liver: The unenhanced liver is normal in size, contour, and attenuation. There is no intrahepatic aubrey iary ductal dilatation. Gallbladder: Surgically absent and clips in the gallbladder fossa. Spleen: Normal in size and attenuation. Pancreas: The enhanced pancreas is moderately atrophic and grossly unremarkable. Adrenal glands: Unremarkable. Kidneys: The unenhanced kidneys demonstrate cortical atrophy and are without hydronephrosis. No renal calculi are identified. There is no evidence of contour deforming mass lesion. Abdominal vasculature: The abdominal aorta is normal in course and caliber noting advanced atheroscle rotic calcification. Bowel: There is moderate colonic diverticulosis without CT evidence of acute diverticulitis. No bowel obstruction is seen. There is mild colonic fecal retention. A duodenal diverticulum is noted. The ap pendix is normal as visualized. Peritoneum: There is no intraperitoneal free air or abdominal ascites. Lymphadenopathy: None. Pelvic viscera: Evaluation of the pelvis is degraded by streak artifact from orthopedic hardware in t he hips. The prostate gland is enlarged and heterogeneous with median lobe hypertrophy. The bladder w all is thickened and trabeculated indicating chronic outlet obstruction. Tiny bladder diverticula are noted. Skeletal structures: The skeletal structures are osteopenic. There is moderate lumbosacral spondylosi s. No lytic or blastic lesions are seen. Postoperative changes noted in the proximal femora bilateral ly. There is a subacute appearing right posterior 11th rib fracture. Additional chronic rib fractures are seen bilaterally. Soft tissues: Again seen is a complex lesion/collection in the right abdominal wall musculature on ax ial image #222. This is not appreciably changed from 05/10/2022, measuring approximately 6.5 x 10 x 6. 5 cm in aggregate dimension (previously measured 7 x 10 x 6 cm). There is overlying soft tissue stran ding. A smaller similar appearing collection is seen in the right lower chest wall between the latera l 9th and 10th ribs on image #109. This measures approximately 5 x 3 x 1.5 cm. IMPRESSION: 1. No significant change in the appearance of an approximately 10 cm complex lesion/collection identi fied in the right lateral abdominal wall musculature with overlying soft tissue stranding. The appear ance favors intramuscular hematoma. Clinical correlation will be required, and clinical follow-up to resolution is recommended to exclude the less likely possibility of underlying mass lesion. Ultrasoun d should be utilized for any follow-up imaging. 2. A smaller similar-appearing collection is seen within the right lateral chest wall musculature bet ween the 9th and 10th ribs. 3. Cardiomegaly. Intralobular septal thickening is noted at the lung bases. Correlate clinically for evidence of fluid overload/congestive change. 4. Small pleural effusions have increased in size from previous. 5. Colonic diverticulosis without CT evidence of acute diverticulitis. 6. There is a subacute appearing right posterior 11th rib fracture. Correlate for point tenderness. 7. Additional findings as above. ACT 112: Negative or not required by law. Electronically signed by: Cooper Cisse M.D. 05/13/2022 10:24 AM
--- NOTE | 2022-05-13 14:12 | Discharge Summary ---
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 Per ED staff, the patient is a resident of the [facility]. Nursing staff noted a mass/swelling on the right abdominal wall which was not noticed before, because of this he was transported to the ED for evalua tion. In the ED the patient was found to be afebrile, hemodynamically stable, and stable on room air. Labs were significant for a leukocytosis of 16.31 with left shift of 13.79, stable Hgb of 11.1, and sodium of 133. INR and PT were pending at the time of evaluation. CT of the abdomen and pelvis with IV contrast showed an approximately 10 cm complex lesion/collection identified in the right lateral abdominal wall musculature with overlying soft tissue stranding. The location and appearance favors an intramuscular hematoma without evidence of acute extravasation. Cardiomegaly with small right and trace left pleural effusions, diverticulosis without diverticulitis, and a subacute appearing right posterior 11th rib fracture. In the Ed the patient was given 3g IV cefazolin due to possible cellulitis overlying the abdominal swelling. At the time of the exam the patient was resting comfortably in bed in no acute distress. He states that he believes he was brought into the hospital because of the swelling in his abdomen, he denies any issues at the time of the exam. When asked, he denies any recent trauma or falls, the only thing he can think of is that he had a very hard and difficult bowel movement yesterday. I called and spoke to the nursing staff at the [facility] as well. They tell me that he was doing well and in his normal state of health, he was able to go to the dinning room and eat breakfast. After breakfast he asked them to come to his room because he was not feeling well, when they examined him they noticed the large abdominal wall swelling and called EMS. They state that he last took his warfarin last night as scheduled and confirmed that he is a Full Code. They also denied of knowing any recent falls/trauma and state that he would likely be a resident who would tell them if anything had happened. I called and spoke to the patient's son (Anthony Quach [phone]) to update him on the situation and obtain more information. He states that he father gordy morrison suffers from short-term memory loss but does not have an official diagnosis of Dementia. I explained the risks and benefits of of holding the patient's Warfarin to both the patient and his Son and they are both in agreement of holding it for now. I also spoke to them regarding code status as the current POLST form lists the patient as a FULL CODE. The patient clearly stated to me that he is 87 years old and at this time he would no longer want CPR or to be intubated as he has lived a good life. His son was in full agreement of his father's decision and does not think his father's quality of life would be good if CPR were performed. Due to their wishes I switched the patient to DNR/DNI. I also spoke to the patient and his son regarding a blood transfusion if one would be needed. I explained the risks and benefits to both and they were both in agreement that the patient would want a blood transfusion if needed; a blood consent was then filled out. Principal Diagnosis hematoma abdominal wall Discharge Exam The patient is awake, alert and oriented 3, well developed and well nourished, normocephalic and atraumatic, lying in bed and in no acute distress. HEENT--PERRL, EOMI, mucous membranes and oropharynx mildly dry Neck--supple. No JVD. No bruits. Thyroid normal, trachea midline, no adenopathy. Heart--normal S1 and S2. No murmurs, rubs or gallops. Lungs--clear bilaterally, no respiratory distress, no accessory muscle use. Abdomen--normal bowel sounds and soft. Mild epigastric and left sided abdominal pain Extremities--no cyanosis or clubbing. No edema. Dermatologic--normal skin turgor, normal color, no abnormal lymph nodes, no rash. Neurologic--cranial nerves II through XII grossly intact. Rheumatologic--normal range of motion. Psychiatric--normal affect. Discharge Data Allergies Allergy/AdvReac Type Severity Reaction Status Date / Time Sulfa (Sulfonamide AdvReac Intermediate Unknown Verified 05/11/22 17:38 Antibiotics) Consultations 05/11/22 16:41 ED Decision to Admit Stat Ordered Studies 05/11/22 13:16 CT abd pelvis IV con only Stat 05/13/22 06:00 CT abd pelvis wo con Routine Hospital Course (1) Abdominal wall hematoma: -Patient is currently afebrile, hemodynamically stable, and stable on room air -Abdominal wall swelling noticed by staff [facility], CT showing intramuscular hematoma without acute extravasation and stranding overlying the soft tissue - Hgb is currently stable at 10.7, -INR 1.5, will resume Warfarin Has been evaluated by surgery, no surgical procedures indicated for now -Repeat CT abdomen showed stable hematoma -D/c home (2) Leucocytosis: most likley stress related no evidence of infection discontinue abx (3) Atrial fibrillation: -Currently rate controlled -Last dose of Coumadin was last night, will need to hold for now with current hematoma, patient and son are in agreement -Will continue TANK WELDER metoprolol for rate control (4) Ischemic cardiomyopathy: -Noted to have a LVEF of 45%, does not examine volume overloaded -Will hold TANK WELDER diuretics for now to ensure his BP remians stable, can restart during admission if he becomes volume overloaded or if his BP remains stable (5) HTN (hypertension): -Hold TANK WELDER lisinopril for now to prevent hypotension (6) GERD (gastroesophageal reflux disease): -Will add famotidine for stress ulcer PPX (7) Depression: -TANK WELDER sertraline (8) CAD (coronary artery disease): -Hold TANK WELDER aspirin for now (9) Hyperlipidemia: -TANK WELDER statin Plan The patient was discussed with Dr. Cary at the time of admission Total Time Total Time Spent Total Time Spent (In Minutes): 35 Discharge Plan Discharge Items Patient Disposition: Transfer Custodial Fac Reason For Visit: RIGHT LATERAL ABDOMINAL MUSCLE HEMATOMA Discharge Diagnosis: abdominal hematoma Activity: Resume your previous activity Lifting: Gradually increase as tolerated Non-emergency contact: Primary Care Provider Call non-emergency contact if: you have any medication questions Follow-up/Referrals: Mauro Mejia [Primary Care Provider] - Diet: Regular Addtl Attending Provider Instructions: please make appointment to follow up with your regular doctor Pending Studies at Discharge: No Stand-Alone Forms: [facility] Skilled Items Patient informed of condition?: Yes DNR: Yes Discharge Level of Care: Skilled Communicable Disease: No Discharge Prognosis: Stable Lines: None Urinary Catheter: No Medications and DC Order Prescriptions: Continued torsemide 20 mg tablet 20 mg PO Q OTHER DAY omega-3 fatty acids 1,000 mg Capsule 1,000 mg PO DAILY polyethylene glycol 3350 [Miralax] 17 gram Powder In Packet 17 g PO DAILY PRN (Reason: Constipation) loperamide [Imodium A-D] 2 mg Tablet 2 mg PO DIRECTED PRN (Reason: Diarrhea) Rx Instructions: administer after each loose stool until symptoms controlled; do not [id number] mg per 24 hrs potassium chloride 10 mEq tablet extended release 10 meq PO DAILY melatonin 3 mg Tablet 6 mg PO HS aspirin 81 mg Tablet,Delayed Release (Dr/Ec) 81 mg PO DAILY acetaminophen [Tylenol Extra Strength] 500 mg Tablet 500 mg PO QID acetaminophen [Tylenol Extra Strength] 500 mg Tablet 500 mg PO Q4 PRN (Reason: Pain) warfarin 6 mg tablet 6 mg PO .TUTHSASU magnesium hydroxide [Milk of Magnesia] 400 mg/5 mL Suspension 30 ml PO DIRECTED PRN (Reason: Constipation) Rx Instructions: as directed per bowel protocol carboxymethylcellulose sodium [Refresh Tears] 0.5 % Drops 2 drp OPB QID PRN (Reason: Dry Eyes) acyclovir 5 % ointment 1 applic TOPICAL AMPM lisinopril 10 mg tablet 10 mg PO DAILY warfarin 5 mg tablet 5 mg PO MOWEFR vitamin B complex Tablet 1 tab PO DAILY gabapentin 100 mg Capsule 200 mg PO BID metoprolol succinate 25 mg tablet extended release 24 hr 25 mg PO DAILY fluticasone propionate [Flonase Allergy Relief] 50 mcg/actuation Oakley,Suspension 2 spray INTRANASAL DAILY Rx Instructions: administer into each nostril sertraline 50 mg tablet 50 mg PO DAILY rosuvastatin 20 mg tablet 20 mg PO DAILY sodium chloride-aloe vera Swab 1 ea INTRANASAL QID PRN (Reason: dryness) diclofenac sodium 1 % Gel 0 g TOPICAL QID PRN (Reason: Pain) Rx Instructions: right knee Biotene Moisturizing Mouth Oakley,Non-Aerosol 2 spray MUCOUS MEMBRANE .Q2HR PRN (Reason: Dry Mouth) coQ10 (ubiquinol) 200 mg Capsule 200 mg PO DAILY Discontinued amoxicillin 500 mg Capsule 2,000 mg PO DIRECTED Rx Instructions: take 1 hr before dentist Discharge Orders: Discharge Order (Routine); Ordered 05/13/22 Ordered By: Cherry Aggarwal/Other Patient Handouts: Fall Prevention Assessing Risk, Falls Prevent Use Cane Walker, ED Soft Tissue Contusion, ED Hematoma Admission Data Admit Date/Time: 05/11/22 17:22 Attending Provider: Cherry Aldridge Admit Provider: Nick Cary Primary Care Provider: Mauro Mejia Other Providers: Nick Cary Other Interventions: Discharge Summary Assessment (RN) Last Done: 05/13/22 13:39 Coding Level of Care Code D/C DAY MANAGEMENT >30 MINS Diagnoses Abdominal wall hematoma S30.1XXA Leucocytosis D72.829 Atrial fibrillation I48.91 Ischemic cardiomyopathy I25.5 HTN (hypertension) I10 GERD (gastroesophageal reflux disease) K21.9 Depression F32.9 CAD (coronary artery disease) I25.10 Hyperlipidemia E78.5 Time Spent (min) 35
== END 2022-05-13 14:56 | DRG 605 ==
LOC: ED 12:51 → SUATTDRO 17:22 → 2W 17:22

== ENCOUNTER 2022-07-23 19:59 | Inpatient (IN) ==
[2022-07-23 20:26] LABS: Basophils # (auto) 0.04 K/uL (0-0.2); Basophils % (auto) 0.2 %; Eosinophils # (auto) 0.21 K/uL (0-0.50); Hematocrit (blood only) 38.2 % (40.1-51.0); Hemoglobin 12.1 g/dl (14.0-18.0); Immature Granulocytes # (auto) 0.34 K/uL (0.00-0.02); Immature Granulocytes % (auto) 1.7 %; Lymphocytes # (auto) 0.45 K/uL (1.2-3.4); Lymphocytes % (auto) 2.2 %; Mean Corpuscular Hemoglobin 25.7 pg (25.0-34.0); Mean Corpuscular Hgb Conc 31.7 g/dL (32.0-36.0); Mean Corpuscular Volume 81.1 fL (80.0-100.0); Monocytes # (auto) 1.29 K/uL (0.24-0.82); Monocytes % (auto) 6.4 %; Neutrophils # (auto) 17.91 K/uL (1.4-6.5); Neutrophils % (auto) 88.5 %; Platelet Count 347 K/uL (130-400); RDW Coefficient of Variation 16.5 % (11.5-14.5); RDW Standard Deviation 48.7 fL (36.4-46.3); Red Blood Count 4.71 M/uL (4.63-6.08); White Blood Count 20.24 K/ul (4.8-10.8)
[2022-07-23 20:37] LABS: Appearance Urine Clear (Clear); Bilirubin Urine Negative (Negative); Blood Urine Negative (Negative); Color Urine Yellow; Glucose Urine UA Negative (Negative); Ketones Urine Negative (Negative); Leukocyte Esterase Urine Negative (Negative); Nitrite Urine Negative (Negative); Protein Urine Negative (Negative); Specific Gravity Urine 1.013 (1.000-1.030); Urobilinogen Urine Negative (Negative); pH Urine 5.5 (4.5-7.5)
[2022-07-23 20:38] LABS: INR 1.5 (0.9-1.1); Partial Thromboplastin Ratio 1.1
[2022-07-23 21:03] LABS: Albumin Globulin Ratio 1.1 (0.9-2); BUN Creatinine Ratio 26.8 (10-20); Bilirubin,Total 0.8 mg/dl (0.2-1.0); Calcium 10.2 mg/dl (8.5-10.1); Creatinine Clr Calc Pharmacy 66.8 ml/min; Est GFR (African American) 92.8 ml/min; Est GFR (Non-African American) 80.1 ml/min; Globulin 3.7 gm/dl (2.5-4.0); Potassium 3.7 mmol/L (3.5-5.1); Total Protein 7.7 gm/dl (6.0-8.3)
--- NOTE | 2022-07-23 21:14 | Emergency Department Note ---
Impression & Plan Acetabulum fracture, left, Atrial fibrillation, Hypoxia, Acute chest wall pain, Fall ED Provider Note NAME: GABY HARRISON AGE: 87 SEX: M : 1935 ARRIVES VIA: Ambulance INFORMANT: Patient, ED PROVIDER(S): Spencer Murphy MD Chief Complaint: Fall, hip and chest pain HPI: Patient presents due to concern for a fall. The patient did have ground- level mechanical fall earlier today as he was walking to the bathroom. The patient did have a recent admission at [facility] in [place] for intraventricular hemorrhage to where he did receive reversal agents and has been on chronic warfarin use. Patient denies any shortness of breath but does complain of some mild rib pain. The patient does have a chronic right-sided abdominal hematoma and his primary concern is also that he has bilateral leg pain. Patient was unable to ambulate but he managed states that he typically does well for baseline. Patient states that he was being clumsy and fell over to his left side. ROS: See HPI for pertinent positives and negatives. A total of 10 systems were reviewed and otherwise negative. Past medical history: See below Surgical history: See below Social history: See below Physical Exam: GENERAL: NAD, wearing a mask, non-toxic. EYE EXAM: Normal conjunctiva. PERRL, no anisocoria and EOM's grossly intact w/o pain. NECK: Supple, no nuchal rigidity, no adenopathy, non-tender. No signs of meningismus. FROM of the neck with good chin to chest and neck extension. No stridor. Chest: Chest: Left-sided reproducible chest wall pain without any crepitus or flail chest LUNGS: Clear to auscultation. Normal chest wall mechanics. HEART: NSR, no MRG. ABDOMEN: Abdomen soft, right-sided abdominal hematoma noted normo-active bowel sounds, no masses, no rebound or guarding. BACK: No CVA TTP. SKIN: No rashes and no bruising. UPPER EXTREMITIES: Upper extremities are grossly normal. No TTP or obvious deformity. LOWER EXTREMITIES: Decreased range of motion secondary to pain, left greater than right hip pain, no obvious deformity. NEURO EXAM: A&O x3, cranial nerves II-XII grossly intact, normal speech, moves all 4 extremities. Differential diagnoses: Fracture, dislocation, contusion, intra-abdominal, pneumothorax, intrathoracic, intracranial, neurologic, compartment syndrome, rhabdomyolysis, as well as other pathologies. Course: Patient was seen and evaluated the bedside. Full history physical exam was performed. EKG interpreted by me Mook baker, rate of 76, wide QRS, left bundle branch block pattern. Imaging Studies: See Below Cardiac monitoring: An order was placed for continuous cardiac monitoring. The monitor shows a rate of 77 with sinus rhythm. MDM: Patient was seen due to concern for fall. The patient did have left-sided chest wall pain as well as hip pain. Blood work obtained along with CT of the head neck chest abdomen pelvis. The patient did have plain films completed of his hi ps. Difficult ascertain of the patient's fracture so CT of the hips were also ordered. The patient's CT head neck and chest did not show any acute findings per stat rad. The patient's abdomen pelvis CT did show that the patient still has hematoma 12 cm with this appears smaller based on the prior CAT scan that he had completed of his abdomen pelvis. The patient does have a left acetabular fracture noted. Given this and the associated concern that the patient was borderline hypoxic into the mid 80s patient was placed on 2 L supplemental nasal cannula and the patient was admitted to the medicine service. Critical Care: I have personally spent 35 minutes of critical care time in direct management of this patient. This includes bedside care, interpretation of diagnostic studies, and testing, discussion with consultants, patient, and family members, and other require inpatient management activities. This 35 minutes is in excess of all separately billable procedures. Of note the patient's stat rad reads did not show that the patient had left 7 through 10 rib fractures, superior endplate deformity of T11 as well as minimally displaced S2 and S3 vertebral fractures. 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 Atrial fibrillation On Coumadin - rate controlled per cardio CAD (coronary artery disease) S/p 5 vessel CABG Chronic systolic (congestive) heart failure Improved volume status and dyspnea with initiation of diuretic per 09/2020 cardio records Cranial nerve palsy CVA (cerebral vascular accident) Per records dating back to 2014, patient denies Depression GERD (gastroesophageal reflux disease) HTN (hypertension) Hyperlipidemia Intraventricular conduction delay Chronic per records Ischemic cardiomyopathy Mild decline in LVEF per 09/2020 ECHO (EF 25-30%) Surgical History Aortic valve replaced (during CABG- 2002) History of cholecystectomy History of hip surgery Right hip nailin07/03/20: Grade view 2, MAC#3, ETT 7.5 at [facility] S/P CABG x 5 2002 Family History Unknown No problems noted. Father , 77 Myocardial infarction Brother Diabetes Social History Smoking Status: Never smoker Tobacco Type: Smokeless Tobacco (Dip or Chew) Second Hand Exposure: No; Hx Alcohol Use: No Hx Substance Use: No Preferred Language: Croatian Communication Ability: Effective Property Clerk Required: No Beliefs That Will Affect Care: None marital status: / Current Living Situation: Skilled Nursing Current Living Situation Comment: in Personal Care at [facility] at [facility] How many Children do You have: 2 Feels Safe at Home: Yes Assistive Devices: Glasses and Walker Allergies Allergies Allergy/AdvReac Type Severity Reaction Status Date / Time Sulfa (Sulfonamide AdvReac Intermediate Unknown Verified 07/24/22 01:29 Antibiotics) Home Meds Home Medications Medication Instructions Recorded Confirmed fluticasone propionate 50 2 spray intranasal QAM 05/11/22 07/24/22 mcg/actuation nasal spray,suspension (Flonase Allergy Relief) gabapentin 100 mg capsule 200 mg PO BID 05/11/22 07/24/22 melatonin 3 mg tablet 6 mg PO HS 05/11/22 07/24/22 metoprolol succinate 25 mg 25 mg PO DAILY 05/11/22 07/24/22 tablet,extended release 24 hr rosuvastatin 20 mg tablet 20 mg PO QAM 05/11/22 07/24/22 sertraline 50 mg tablet 50 mg PO QAM 05/11/22 07/24/22 torsemide 20 mg tablet 20 mg PO Q OTHER DAY 05/11/22 07/24/22 vitamin B complex 1 tab PO DAILY 05/11/22 07/24/22 warfarin 5 mg tablet 5 mg PO 3XWK 05/11/22 07/24/22 amoxicillin 500 mg capsule 2,000 mg PO DIRECTED PRN PRIOR 06/29/22 07/24/22 TO DENTAL VISITS amino acids-protein hydrolysate 11 30 ea PO BID 07/24/22 07/24/22 gram-80 kcal/30 mL oral liquid (Pro-Stat Max) docusate sodium 100 mg tablet 100 mg PO BID 07/24/22 07/24/22 enoxaparin 80 mg/0.8 mL 80 mg subcut Q12H 07/24/22 07/24/22 subcutaneous syringe food supplemt, lactose-reduced 247 ea PO QAM 07/24/22 07/24/22 omeprazole 20 mg capsule,delayed 20 mg PO QAM 07/24/22 07/24/22 release polyethylene glycol 3350 17 gram 17 g PO QAM 07/24/22 07/24/22 oral powder packet sennosides 8.6 mg tablet (senna) 8.6 mg PO BID 07/24/22 07/24/22 warfarin 7.5 mg tablet 7.5 mg PO 4XWK 07/24/22 07/24/22 Results & Data (ED) Vital Signs Vital Signs - 24 hr 07/23/22 20:10 Temperature 36.8 C Temperature Source Oral Pulse Rate 89 Pulse Rhythm Irregular Respiratory Rate 20 Respiratory Effort / Characteristics Non-Labored Respiratory Depth Normal Blood Pressure 133/66 Blood Pressure Mean 88 Pulse Oximetry 90 Oxygen Delivery Method Room Air Sepsis Recent Fever Within 48 Hours No Sepsis New/Unexplained Change in Mental Status No Sepsis Action Taken by Nursing No Action Required Home Medications Current Medication List: was personally reviewed by me Laboratory Data Attestation: I reviewed the patient's lab results. Result diagrams: 07/25/22 08:38 07/25/22 08:38 Lab Results 07/23/22 07/23/22 07/23/22 Range/Units 20:12 20:12 20:12 WBC 20.24 H (4.8-10.8) K/ul RBC 4.71 (4.63-6.08) M/uL Hgb 12.1 L (14.0-18.0) g/dl Hct 38.2 L (40.1-51.0) % MCV 81.1 (80.0-100.0) fL MCH 25.7 (25.0-34.0) pg MCHC 31.7 L (32.0-36.0) g/dL RDW Std Deviation 48.7 H (36.4-46.3) fL RDW Coeff of Miller 16.5 H (11.5-14.5) % Plt Count 347 (130-400) K/uL MPV 10.0 (9.4-12.4) fL Immature Gran % (Auto) 1.7 % Neut % (Auto) 88.5 % Lymph % (Auto) 2.2 % [place] % (Auto) 6.4 % Eos % (Auto) 1.0 % Baso % (Auto) 0.2 % Neut # (Auto) 17.91 H (1.4-6.5) K/uL Lymph # (Auto) 0.45 L (1.2-3.4) K/uL [place] # (Auto) 1.29 H (0.24-0.82) K/uL Eos # (Auto) 0.21 (0-0.50) K/uL Baso # (Auto) 0.04 (0-0.2) K/uL Immature Gran # (Auto) 0.34 H (0.00-0.02) K/uL PT 16.0 H (9.0-12.0) Seconds INR 1.5 H (0.9-1.1) APTT 30.0 (21.0-31.0) Seconds PTT Ratio 1.1 Sodium 134 L (136-145) mmol/L Potassium 3.7 (3.5-5.1) mmol/L Chloride 98 (98-107) mmol/L Carbon Dioxide 27 (21-32) mmol/L Anion Gap 9 (3-11) BUN 22 (6-23) mg/dl Creatinine 0.82 (0.6-1.4) mg/dl Est Cr Clr Drug Dosing 66.8 ml/min Est GFR ( Amer) 92.8 ml/min Est GFR (Non-Af Amer) 80.1 ml/min BUN/Creatinine Ratio 26.8 H (10-20) Glucose 139 H (70-99(Fasting)) mg/dl Calcium 10.2 H (8.5-10.1) mg/dl Total Bilirubin 0.8 (0.2-1.0) mg/dl AST 22 (13-39) U/L ALT 17 (7-52) U/L Alkaline Phosphatase 128 H (34-104) U/L Total Protein 7.7 (6.0-8.3) gm/dl Albumin 4.0 (3.4-5.0) gm/dl Globulin 3.7 (2.5-4.0) gm/dl Albumin/Globulin Ratio 1.1 (0.9-2) Urine Color Urine Appearance (Clear) Urine pH (4.5-7.5) Ur Specific [place] (1.000-1.030) Urine Protein (Negative) Urine Glucose (UA) (Negative) Urine Ketones (Negative) Urine Blood (Negative) Urine Nitrite (Negative) Urine Bilirubin (Negative) Urine Urobilinogen (Negative) Ur Leukocyte Esterase (Negative) 07/23/22 Range/Units 20:12 WBC (4.8-10.8) K/ul RBC (4.63-6.08) M/uL Hgb (14.0-18.0) g/dl Hct (40.1-51.0) % MCV (80.0-100.0) fL MCH (25.0-34.0) pg MCHC (32.0-36.0) g/dL RDW Std Deviation (36.4-46.3) fL RDW Coeff of Miller (11.5-14.5) % Plt Count (130-400) K/uL MPV (9.4-12.4) fL Immature Gran % (Auto) % Neut % (Auto) % Lymph % (Auto) % [place] % (Auto) % Eos % (Auto) % Baso % (Auto) % Neut # (Auto) (1.4-6.5) K/uL Lymph # (Auto) (1.2-3.4) K/uL [place] # (Auto) (0.24-0.82) K/uL Eos # (Auto) (0-0.50) K/uL Baso # (Auto) (0-0.2) K/uL Immature Gran # (Auto) (0.00-0.02) K/uL PT (9.0-12.0) Seconds INR (0.9-1.1) APTT (21.0-31.0) Seconds PTT Ratio Sodium (136-145) mmol/L Potassium (3.5-5.1) mmol/L Chloride (98-107) mmol/L Carbon Dioxide (21-32) mmol/L Anion Gap (3-11) BUN (6-23) mg/dl Creatinine (0.6-1.4) mg/dl Est Cr Clr Drug Dosing ml/min Est GFR ( Amer) ml/min Est GFR (Non-Af Amer) ml/min BUN/Creatinine Ratio (10-20) Glucose (70-99(Fasting)) mg/dl Calcium (8.5-10.1) mg/dl Total Bilirubin (0.2-1.0) mg/dl AST (13-39) U/L ALT (7-52) U/L Alkaline Phosphatase (34-104) U/L Total Protein (6.0-8.3) gm/dl Albumin (3.4-5.0) gm/dl Globulin (2.5-4.0) gm/dl Albumin/Globulin Ratio (0.9-2) Urine Color Yellow Urine Appearance Clear (Clear) Urine pH 5.5 (4.5-7.5) Ur Specific [place] 1.013 (1.000-1.030) Urine Protein Negative (Negative) Urine Glucose (UA) Negative (Negative) Urine Ketones Negative (Negative) Urine Blood Negative (Negative) Urine Nitrite Negative (Negative) Urine Bilirubin Negative (Negative) Urine Urobilinogen Negative (Negative) Ur Leukocyte Esterase Negative (Negative) Administered Medications Acetaminophen (Acetaminophen 500 Mg Tab) 1,000 mg PO Q8 PATTIE Stop: 08/23/22 22:44 Last Admin: 07/25/22 21:18 Dose: 1,000 mg Documented By: Admin: 07/25/22 11:19 Dose: 1,000 mg Documented By: Admin: 07/25/22 05:55 Dose: 1,000 mg Documented By: Admin: 07/24/22 22:57 Dose: 1,000 mg Documented By: MANJULA Gabapentin (Gabapentin 100 Mg Cap) 200 mg PO BID PATTIE Stop: 08/23/22 08:59 Last Admin: 07/25/22 21:18 Dose: 200 mg Documented By: Admin: 07/25/22 07:13 Dose: 200 mg Documented By: Admin: 07/24/22 20:42 Dose: 200 mg Documented By: OAFrancia Admin: 07/24/22 09:37 Dose: 200 mg Documented By: MYLENE Lisinopril (Lisinopril 10 Mg Tab) 10 mg PO DAILY PATTIE Stop: 08/23/22 08:59 Last Admin: 07/25/22 07:12 Dose: 10 mg Documented By: Admin: 07/24/22 09:36 Dose: 10 mg Documented By: MYLENE Melatonin (Melatonin 3 Mg Tab) 6 mg PO HS PATTIE Stop: 08/23/22 20:59 Last Admin: 07/25/22 21:18 Dose: 6 mg Documented By: Admin: 07/24/22 20:42 Dose: 6 mg Documented By: OAFrancia Metoprolol Succinate (Metoprolol Succ 25mg Ext Rel Tab) 25 mg PO DAILY PATTIE Stop: 08/23/22 08:59 Last Admin: 07/25/22 07:12 Dose: Not Given Documented By: Admin: 07/24/22 09:36 Dose: 25 mg Documented By: MYLENE Potassium Chloride (Potassium Chloride 10 Meq Tabcr) 10 meq PO DAILY PATTIE Stop: 08/23/22 08:59 Last Admin: 07/25/22 07:12 Dose: 10 meq Documented By: Admin: 07/24/22 09:32 Dose: 10 meq Documented By: MYLENE Rosuvastatin Calcium (Rosuvastatin Calcium 20 Mg Tab) 20 mg PO DAILY PATTIE Stop: 08/23/22 08:59 Last Admin: 07/25/22 07:12 Dose: 20 mg Documented By: Admin: 07/24/22 09:32 Dose: 20 mg Documented By: MYLENE Sertraline HCl (Sertraline Hcl 50 Mg Tablet) 50 mg PO DAILY PATTIE Stop: 08/23/22 08:59 Last Admin: 07/25/22 07:13 Dose: 50 mg Documented By: Admin: 07/24/22 09:32 Dose: 50 mg Documented By: MYLENE Torsemide (Torsemide 20 Mg Tab) 20 mg PO Q2D@0900 PATTIE Stop: 08/24/22 08:59 Last Admin: 07/25/22 07:13 Dose: 20 mg Documented By: DIAN Discontinued Medications Lactated Ringer's (Lr) 1,000 mls @ 120 mls/hr IV .Q8H20M [facility] Stop: 07/24/22 10:49 Last Infusion: 07/24/22 12:20 Dose: 0 mls/hr Documented By: Admin: 07/24/22 04:00 Dose: 120 mls/hr Documented By: MED Ioversol (Optiray 350 100ml) 82 ml IV ONCE ONE Stop: 07/23/22 22:14 Last Admin: 07/23/22 22:13 Dose: 182 ml Documented By: Imaging Data Radiologist's Impression: Cervical Spine CT 07/23/22 20:42 CT cervical spine wo con CLINICAL HISTORY: Trauma TECHNIQUE: Multidetector row helical CT of the cervical spine was performed without administration of intravenous contrast. Coronal and sagittal reformations were obtained. Automated dose lowering techniques and/or adjustment according to patient size were utilized for this exam. Comparison: Comparison is made to CT neck 07/09/2022 FINDINGS: No acute fractures or subluxations are identified. Degenerative changes are seen in the visualized spine. The alignment is normal. Nuchal ligament calcification noted. IMPRESSION: Degenerative changes without evidence of acute bony injury. ACT 112: Negative or not required by law. Electronically signed by: Jed Jackson M.D. 07/24/2022 7:[address] 07/23/22 20:42 CT head/brain wo con CLINICAL HISTORY: Trauma Technique: Contiguous axial CT images of the head were acquired from the base of the skull to the vertex without intravenous contrast administration. Images were viewed in brain, subdural and bone windows. Automated dose lowering techniques and/or adjustment according to patient size were utilized for this exam. Comparison: Comparison is made to CT head 07/09/2022 Findings: Areas of decreased attenuation are present in the periventricular and subcortical white matter bilaterally consistent with small vessel ischemic disease. Generalized cerebral atrophy with commensurate enlargement of the ventricles, sulci, and cisterns is also present. There is no acute intracranial hemorrhage or evidence of acute territorial infarction. No shift of the midline structures, mass effect, or extra-axial abnormalities are shown. Atherosclerotic calcifications are present in the intracranial segments of the internal carotid arteries. Right sphenoid sinus disease is seen. The orbits appear normal. There are no acute fractures of the calvaria or scalp swelling. Impression: No acute intracranial hemorrhage, no evidence of acute territorial infarction or other acute intracranial disease process. ACT 112: Negative or not required by law. Electronically signed by: Jed Jackson M.D. 07/24/2022 7:59 AM Abdomen/Pelvis CT 07/23/22 20:43 CT OF THE ABDOMEN AND PELVIS WITH CONTRAST CLINICAL HISTORY: Trauma, fall, old right sided hematoma. COMPARISON STUDY: CT of the abdomen and pelvis June 29, 2022. TECHNIQUE: Following IV administration of 82 mL of Optiray, axial images of the abdomen and pelvis were obtained from the lung bases to the proximal femurs. Images were reviewed in the axial, sagittal, and coronal planes. IV contrast was administered without complication. Automated exposure control was utilized for the study. A dose lowering technique was utilized adhering to the principles of ALARA. FINDINGS: The chest CT will be reported separately. There is an acute nondisplaced fracture of the anterolateral left 10th rib. No acute lumbar spine fracture is noted. Note is made of an acute fracture through anterior o steophytes at the T10-T11 level that slightly extends along the superior endplate of T11. There is an acute left acetabular fracture which is nondisplaced. This is depicted on the CT of the left hip which will be reported separately. Bilateral proximal femoral internal fixations are noted. There is no evidence for traumatic injury to the solid abdominal viscera. A hypodense masslike abnormality of the right lateral abdominal wall centered within the musculature extending into the subcutaneous tissues is noted. This has persisted since CT of May 11, 2022 and has likely slightly increased in size, measuring approximately 10.6 x 5.9 cm. Associated hypodensities with peripheral enhancement overlying the right hepatic lobe extending into the intercostal space are also noted. Colonic diverticulosis is noted without evidence for acute diverticulitis. No hemoperitoneum or pneumoperitoneum is present. Minimally displaced acute fractures of the S2 and S3 vertebra are noted. IMPRESSION: 1. No evidence for traumatic injury to the solid abdominal viscera. 2. Acute nondisplaced left acetabular fracture better depicted on the CT of the left hip which will be reported separately. 3. Acute nondisplaced lateral left 10th rib fracture. 4. Acute minimally displaced fractures of the S2 and S3 vertebra. 5. Redemonstration of the previously described right lateral abdominal wall hypodense masslike abnormality. Given persistence from earlier exams, a neoplasm cannot be excluded. Surgical consultation is recommended. ACT 112: Positive. There are findings on this exam that require communication between the performing entity and the patient following Patient Test Result Information Act ([place] Act 112) guidelines. Electronically signed by: Lucas Li M.D. 07/24/2022 10:[address] 07/23/22 20:43 CT OF THE CHEST WITH IV CONTRAST CLINICAL HISTORY: Trauma, fall, left sided chest wall pain COMPARISON STUDY: Chest CT October 13, 2017 and chest radiograph July 09, 2022. TECHNIQUE: Following IV administration of 82 mL of Optiray, helical axial images of the chest were obtained. Sagittal and coronal reconstructions were viewed as well as maximal intensity projections on an independent 3-D workstation. Automated exposure control was utilized for the study. A dose lowering technique was utilized adhering to the principles of ALARA. FINDINGS: There is no evidence for traumatic injury to the thoracic aorta. Median sternotomy wires and postoperative findings from bypass grafting are noted. Dilatation of the ascending aorta, measuring 4.6 cm, is noted. Moderate cardiomegaly is present. There is no pericardial effusion. There is no mediastinal hematoma. No thoracic lymphadenopathy is present. Lungs are suboptimally assessed due to respiratory motion. Groundglass opacities favor atelectasis. There is no pneumothorax, pulmonary contusion or pleural effusion. There is an acute nondisplaced fracture of the lateral left seventh rib. There is an acute nondisplaced fracture of the anterolateral left 10th rib depicted on the CT of the abdomen and pelvis which will be reported separately. Multiple old right-sided rib fractures are present. 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 There is an acute fracture through right anterior osteophytes at the T10-T11 level which slightly extends along the superior endplate of T11. No extension into the posterior elements is noted. No additional thoracic spine fractures are identified. IMPRESSION: 1. No evidence for traumatic injury to the thoracic aorta. 2. Acute nondisplaced fractures of the left seventh and 10th ribs. No pneumothorax. 3. Acute fracture through anterior osteophytes at the T10-T11 level that slightly extends along the superior endplate of T11. No retropulsion. No extension into the posterior elements. This finding will be called/faxed to the ordering provider at time of dictation. ACT 112: Negative or not required by law. Electronically signed by: Lucas Li M.D. 07/24/2022 9:49 AM Hip/Pelvis X-Ray 07/23/22 20:45 XR hip IRVING 2v w pelvis CLINICAL HISTORY: Pain following fall. COMPARISON STUDY: CT of the abdomen and pelvis June 29, 2022. FINDINGS: Healed intertrochanteric fractures of the femurs are noted following internal fixation. No acute femoral fracture is noted. An acute nondisplaced left acetabular fracture is better depicted on subsequent CT. This is not well- visualized by radiography. No additional fractures are present. IMPRESSION: 1. Acute nondisplaced left acetabular fracture better depicted on subsequent CT. 2. Healed bilateral intertrochanteric fractures status post internal fixation. ACT 112: Negative or not required by law. Electronically signed by: Lucas Li M.D. 07/24/2022 10:[address] 07/23/22 21:[address] WITHOUT CONTRAST CLINICAL HISTORY: Left hip pain following fall. COMPARISON STUDY: CT of the abdomen and pelvis June 29, 2022. TECHNIQUE: Axial images of the left hip were obtained without IV contrast. Sagittal and coronal reconstructions were viewed. Automated exposure control was utilized for the study. A dose lowering technique was utilized adhering to the principles of ALARA. FINDINGS: Healed intertrochanteric fracture of the left femur is noted status post internal fixation. There is no acute proximal left femoral fracture. Note is made of an acute nondisplaced left acetabular fracture. Fracture is comminu michelle and involves the left acetabular roof as well as the anterior and medial rodney of the left acetabulum. No additional acute fractures are identified on this exam. IMPRESSION: 1. Acute nondisplaced left acetabular fracture, as described above. This involves the acetabular roof as well as the medial and anterior rodney of the left acetabulum. 2. Healed intertrochanteric fracture of the left femur status post internal fixation. No acute proximal left femoral fracture. ACT 112: Negative or not required by law. Electronically signed by: Lucas Li M.D. 07/24/2022 10:[address] 07/23/22 21:23 CT hip RT wo con CLINICAL HISTORY: fall, pain TECHNIQUE: Multidetector row helical CT of the right hip was performed without intravenous contrast. Coronal and sagittal reformations were obtained. Automated dose lowering techniques and/or adjustment according to patient size were utilized for this examination. CT DOSE: 2172.33 mGy.cm Comparison: Comparison is made to CT abdomen pelvis 07/23/2022 FINDINGS: Postsurgical changes of open reduction internal fixation of the right femur are seen other than mild surrounding heterotopic ossification. No acute fractures are seen. Degenerative changes are seen in the joints. No joint effusion is seen. The soft tissues are unremarkable. IMPRESSION: No evidence of acute fracture. Satisfactory appearance of prior femoral hardware. ACT 112: Negative or not required by law. Electronically signed by: Jed Jackson M.D. 07/24/2022 8:03 AM Discharge Plan Visit Data Chief Complaint: Fall Stated Complaint: GLF, HX OF I[facility] ED Provider: Spencer Murphy Discharge Problem: Acetabulum fracture, left, Atrial fibrillation, Hypoxia, Acute chest wall pain, Fall Patient Disposition: Admitted As Inpatient Discharge Instructions Interventions: ED Discharge Assessment Last Done: 07/24/22 02:30
[2022-07-23] MEDS ORDERED: OPTIRAY 350 100ml IV ONE (22:13)
--- NOTE | 2022-07-23 23:25 | History & Physical Report ---
Date of Service July 23, 2022 Assessment & Plan (1) Nondisplaced fracture of left acetabulum: Plan: S/p mechanical fall at the [facility]. CT left hip showing nondisplaced both column fracture of acetabulum without dislocation, and previous ORIF of left femur. - PRN pain regimen: Tylenol 1g IV Q8H; Morphine 2mg IV Q4H; Morphine 4mg IV Q4H - consult Orthopedic surgery - appreciate recs - NPO pending consultation - start LR @120cc/hr x1L - PT/OT consulted (2) Hypoxia: Plan: Hypoxic to 84% on room air and required 2L/min via NC to maintain adequate saturations. ?due to chronic rib fractures and likely resultant restrictive ventilation. No infection/acute pathology on CT chest. - PRN pain regimen as stated above - wean supplemental O2 ad chaparro to maintain sats >90% (3) Leukocytosis: Plan: WBC 20 (baseline 15-17, with neutrophilic predominance and significant L shift). Patient does not have focal infectious symptoms. Does have chronic abdominal wall hematoma without signs of infection per imaging. This may be due to inflammation in setting of recent intraventricular hemorrhage as well as recent fall. - ordered CRP/procal/blood cultures - hold on abx at this time - trend CBC in AM (4) CAD (coronary artery disease): Plan: Chronic. S/p CABG x5. No current chest pain. - hold Aspirin in setting of recent brain bleed - continue home Lisinopril/Metoprolol/Rosuvastatin - continue home Torsemide QOD - PRN EKG/Nitro SL for chest pain (5) Aortic valve disease: Plan: Chronic, s/p aortic valve replacement in 2002. - hold Warfarin due to recent brain bleed (has been held since hospitalization) (6) Atrial fibrillation: Plan: Chronic. Currently rate-controlled and in a-fib. - continue home BB as stated above - hold home Warfarin due to recent brain bleed (INR 1.5 on admission) - trend INR/PT in AM (7) Abdominal wall hematoma: Plan: Chronic, without acute changes per patient/imaging. - monitor (8) HTN (hypertension): Plan: Chronic, controlled. 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 He presented to [facility] ED from [facility] on 07/23 due to upper thigh pain following a ground level mechanical fall that occurred earlier in the day while he was walking to the bathroom. Of note the patient was recently admitted at [facility] on 07/09/2022 from our ED for acute intraventricular hemorrhage (of note patient had PCC/Kcentra/vitamin K provided in our ED due to chronic Warfarin use, before transfer to [place] at that time). He was transitioned to [facility] after the [facility] hospitalization. In the ED the patient was hypoxic to 84% on room air and improved to 99% on 2L/min NC. Otherwise hemodynamically stable. Labs significant for WBC 20 (baseline 15-17, with neutrophilic predominance and significant L shift), Hgb 12.1 (~baseline). INR 1.5/PT 16 (INR was 2.9 on 07/09). Na 134. UA no signs of infection. CT head/c-spine without acute findings. CT chest with old right rib fractures but no acute fractures or consolidations/opacities. CT A/P with complex mass in right lateral abdominal wall that may represent evolving hematoma; no signs of infection. CT left hip showing nondisplaced both column fracture of acetabulum without dislocation, and previous ORIF of left femur. Patient unable to ambulate in the ED and we were thus called for admission. Allergies Allergy/AdvReac Type Severity Reaction Status Date / Time Sulfa (Sulfonamide AdvReac Intermediate Unknown Verified 07/24/22 01:29 Antibiotics) Home Medications Medication Instructions Recorded Confirmed Type fluticasone propionate 50 2 spray intranasal QAM 05/11/22 07/24/22 History mcg/actuation nasal spray,suspension (Flonase Allergy Relief) gabapentin 100 mg capsule 200 mg PO BID 05/11/22 07/24/22 History melatonin 3 mg tablet 6 mg PO HS 05/11/22 07/24/22 History metoprolol succinate 25 mg 25 mg PO DAILY 05/11/22 07/24/22 History tablet,extended release 24 hr rosuvastatin 20 mg tablet 20 mg PO QAM 05/11/22 07/24/22 History sertraline 50 mg tablet 50 mg PO QAM 05/11/22 07/24/22 History torsemide 20 mg tablet 20 mg PO Q OTHER DAY 05/11/22 07/24/22 History vitamin B complex 1 tab PO DAILY 05/11/22 07/24/22 History warfarin 5 mg tablet 5 mg PO 3XWK 05/11/22 07/24/22 History amoxicillin 500 mg capsule 2,000 mg PO DIRECTED PRN PRIOR 06/29/22 07/24/22 History TO DENTAL VISITS amino acids-protein hydrolysate 11 30 ea PO BID 07/24/22 07/24/22 History gram-80 kcal/30 mL oral liquid (Pro-Stat Max) docusate sodium 100 mg tablet 100 mg PO BID 07/24/22 07/24/22 History enoxaparin 80 mg/0.8 mL 80 mg subcut Q12H 07/24/22 07/24/22 History subcutaneous syringe food supplemt, lactose-reduced 247 ea PO QAM 07/24/22 07/24/22 History omeprazole 20 mg capsule,delayed 20 mg PO QAM 07/24/22 07/24/22 History release polyethylene glycol 3350 17 gram 17 g PO QAM 07/24/22 07/24/22 History oral powder packet sennosides 8.6 mg tablet (senna) 8.6 mg PO BID 07/24/22 07/24/22 History warfarin 7.5 mg tablet 7.5 mg PO 4XWK 07/24/22 07/24/22 History 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 Atrial fibrillation On Coumadin - rate controlled per cardio CAD (coronary artery disease) S/p 5 vessel CABG Chronic systolic (congestive) heart failure Improved volume status and dyspnea with initiation of diuretic per 09/2020 cardio records Cranial nerve palsy CVA (cerebral vascular accident) Per records dating back to 2014, patient denies Depression GERD (gastroesophageal reflux disease) HTN (hypertension) Hyperlipidemia Intraventricular conduction delay Chronic per records Ischemic cardiomyopathy Mild decline in LVEF per 09/2020 ECHO (EF 25-30%) Surgical History Aortic valve replaced (during CABG- 2002) History of cholecystectomy History of hip surgery Right hip nailin07/03/20: Grade view 2, MAC#3, ETT 7.5 at [facility] S/P CABG x 5 2002 Family History Unknown No problems noted. Father , 77 Myocardial infarction Brother Diabetes Social History Smoking Status: Never smoker Tobacco Type: Smokeless Tobacco (Dip or Chew) Second Hand Exposure: No; Hx Alcohol Use: No Hx Substance Use: No Preferred Language: Welsh Communication Ability: Effective English Horn Player Required: No Beliefs That Will Affect Care: None marital status: / Current Living Situation: Custodial Current Living Situation Comment: in Personal Care at [place] at [facility] How many Children do You have: 2 Feels Safe at Home: Yes Assistive Devices: Glasses and Walker Review of Systems Review of Systems: All systems reviewed & are unremarkable except as noted in HPI & below Physical Exam Physical Exam: General: A&Ox to self/month/year only (?baseline). NAD. Cooperative. HEENT: Atraumatic, normocephalic. Pulm: CTAB A&P. -wheezes, -rales, -rhonchi. Symmetrical chest rise. No increase work of breathing. No respiratory distress. Cardiac: RRR, -mrg. Radial pulses intact and symmetrical. No LE edema. Abdominal: soft, non-tender, non-distended, BS x 4. Right lower abdominal mass without tenderness to palpation (chronic). Skin: warm, dry, no rash Results & Data Results & Data ([facility]) Vital Signs (Past 12 Hours) Vital Signs Temp Pulse Pulse Resp BP BP Pulse Ox 07/23/22 22:20 100 H 20 148/72 H 96 12/05/22 20:42 83 18 95 07/23/22 20:10 36.8 C 89 20 133/66 90 O2 Del Method 07/23/22 22:20 Room Air 07/23/22 20:42 Room Air 07/23/22 20:10 Room Air Supervising Physician Co-Signing Physician Notes Attending addendum: I have physically seen this patient, have supervised the medical residents activities, and agree with the H&P unless as otherwise noted. Assessment and Plan: Nondisplaced fracture of left acetabulum/ambulatory dysfunction- Status post mechanical fall Acetaminophen 1 g IV every 8 hours as needed for mild pain or fever Morphine sulfate 2 mg IV every 4 hours as needed for moderate pain Morphine sulfate 4 mg IV every 4 hours as needed for severe pain Consult PT/OT Consult orthopedic surgery CAD/hypertension/aortic valve replacement/atrial fibrillation- Hold aspirin and warfarin due to history of recent brain bleed Continue lisinopril, metoprolol and torsemide Other medications and notations as noted Resident Activity Tracking Resident Involvement: Resident Care Provided Care Provided: Adult Hospital Medicine (1) Abdominal wall hematoma Encounter type: subsequent encounter Qualified Code(s): S30.1XXD - Contusion of abdominal wall, subsequent encounter
[2022-07-24] MEDS ORDERED: LACTATED RINGER'S 1,000 ML IV SCH (02:30)
[2022-07-24] MEDS ORDERED: NITROGLYCERIN SL 0.4 MG/TAB TAB SL PRN (02:30)
[2022-07-24 07:03] LABS: Basophils # (auto) 0.05 K/uL (0-0.2); Basophils % (auto) 0.3 %; Eosinophils # (auto) 0.22 K/uL (0-0.50); Eosinophils % (auto) 1.5 %; Hematocrit (blood only) 34.8 % (40.1-51.0); Immature Granulocytes # (auto) 0.08 K/uL (0.00-0.02); Immature Granulocytes % (auto) 0.5 %; Lymphocytes # (auto) 0.43 K/uL (1.2-3.4); Mean Corpuscular Hemoglobin 25.2 pg (25.0-34.0); Mean Corpuscular Hgb Conc 31.6 g/dL (32.0-36.0); Mean Corpuscular Volume 79.8 fL (80.0-100.0); Mean Platelet Volume 9.9 fL (9.4-12.4); Monocytes % (auto) 8.2 %; Neutrophils # (auto) 12.58 K/uL (1.4-6.5); Neutrophils % (auto) 86.5 %; Platelet Count 301 K/uL (130-400); RDW Coefficient of Variation 16.7 % (11.5-14.5); RDW Standard Deviation 47.9 fL (36.4-46.3); Red Blood Count 4.36 M/uL (4.63-6.08); White Blood Count 14.56 K/ul (4.8-10.8)
[2022-07-24 07:27] LABS: INR 1.5 (0.9-1.1); Prothrombin Time 15.8 Seconds (9.0-12.0)
[2022-07-24 07:44] LABS: BUN Creatinine Ratio 29.2 (10-20); Calcium 9.6 mg/dl (8.5-10.1); Creatinine Clr Calc Pharmacy 84.2 ml/min; Est GFR (African American) 102.1 ml/min; Est GFR (Non-African American) 88.1 ml/min; Potassium 3.9 mmol/L (3.5-5.1)
--- NOTE | 2022-07-24 07:57 | CT Scan Report ---
CT cervical spine wo con CLINICAL HISTORY: Trauma TECHNIQUE: Multidetector row helical CT of the cervical spine was performed without administration of intravenous contrast. Coronal and sagittal reformations were obtained. Automated dose lowering techn iques and/or adjustment according to patient size were utilized for this exam. Comparison: Comparison is made to CT neck 07/09/2022 FINDINGS: No acute fractures or subluxations are identified. Degenerative changes are seen in the visualized sp ine. The alignment is normal. Nuchal ligament calcification noted. IMPRESSION: Degenerative changes without evidence of acute bony injury. ACT 112: Negative or not required by law. Electronically signed by: Jed Jackson M.D. 07/24/2022 7:56 AM
--- NOTE | 2022-07-24 08:00 | CT Scan Report ---
CT head/brain wo con CLINICAL HISTORY: Trauma Technique: Contiguous axial CT images of the head were acquired from the base of the skull to the federico shanae without intravenous contrast administration. Images were viewed in brain, subdural and bone [facility] . Automated dose lowering techniques and/or adjustment according to patient size were utilized for this exam. Comparison: Comparison is made to CT head 07/09/2022 Findings: Areas of decreased attenuation are present in the periventricular and subcortical white matter bilate rally consistent with small vessel ischemic disease. Generalized cerebral atrophy with commensurate e nlargement of the ventricles, sulci, and cisterns is also present. There is no acute intracranial hem orrhage or evidence of acute territorial infarction. No shift of the midline structures, mass effect, or extra-axial abnormalities are shown. Atherosclerotic calcifications are present in the intracran ial segments of the internal carotid arteries. Right sphenoid sinus disease is seen. The orbits appear normal. There are no acute fractures of the calvaria or scalp swelling. Impression: No acute intracranial hemorrhage, no evidence of acute territorial infarction or other acute intracra nial disease process. ACT 112: Negative or not required by law. Electronically signed by: Jed Jackson M.D. 07/24/2022 7:59 AM
--- NOTE | 2022-07-24 08:05 | CT Scan Report ---
CT hip RT wo con CLINICAL HISTORY: fall, pain TECHNIQUE: Multidetector row helical CT of the right hip was performed without intravenous contrast. Coronal and sagittal reformations were obtained. Automated dose lowering techniques and/or adjustment according to patient size were utilized for this examination. CT DOSE: 2172.33 mGy.cm Comparison: Comparison is made to CT abdomen pelvis 07/23/2022 FINDINGS: Postsurgical changes of open reduction internal fixation of the right femur are seen other than mild surrounding heterotopic ossification. No acute fractures are seen. Degenerative changes are seen in t he joints. No joint effusion is seen. The soft tissues are unremarkable. IMPRESSION: No evidence of acute fracture. Satisfactory appearance of prior femoral hardware. ACT 112: Negative or not required by law. Electronically signed by: Jed Jackson M.D. 07/24/2022 8:03 AM
[2022-07-24] MEDS: ROSUVASTATIN CALCIUM 20 MG TAB PO SCH (09:32)
[2022-07-24] MEDS: SERTRALINE HCL 50 MG TABLET PO SCH (09:32)
[2022-07-24] MEDS: POTASSIUM CHLORIDE 10 MEQ TABCR PO SCH (09:32)
[2022-07-24] MEDS: lisinopril 10 MG TAB PO SCH (09:36)
[2022-07-24] MEDS: METOPROLOL SUCC 25MG EXT REL TAB PO SCH (09:36)
[2022-07-24] MEDS: GABAPENTIN 100 MG CAP PO SCH ×2 (09:37→20:42)
--- NOTE | 2022-07-24 09:51 | CT Scan Report ---
CT OF THE CHEST WITH IV CONTRAST CLINICAL HISTORY: Trauma, fall, left sided chest wall pain COMPARISON STUDY: Chest CT October 13, 2017 and chest radiograph July 09, 2022. TECHNIQUE: Following IV administration of 82 mL of Optiray, helical axial images of the chest were o btained. Sagittal and coronal reconstructions were viewed as well as maximal intensity projections o n an independent 3-D workstation. Automated exposure control was utilized for the study. A dose low ering technique was utilized adhering to the principles of ALARA. FINDINGS: There is no evidence for traumatic injury to the thoracic aorta. Median sternotomy wires a nd postoperative findings from bypass grafting are noted. Dilatation of the ascending aorta, measurin g 4.6 cm, is noted. Moderate cardiomegaly is present. There is no pericardial effusion. There is no m ediastinal hematoma. No thoracic lymphadenopathy is present. Lungs are suboptimally assessed due to r espiratory motion. Groundglass opacities favor atelectasis. There is no pneumothorax, pulmonary contu jacinta or pleural effusion. There is an acute nondisplaced fracture of the lateral left seventh rib. Th ere is an acute nondisplaced fracture of the anterolateral left 10th rib depicted on the CT of the ab domen and pelvis which will be reported separately. Multiple old right-sided rib fractures are presen t. 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 There is an acute fracture thro ugh right anterior osteophytes at the T10-T11 level which slightly extends along the superior endplat e of T11. No extension into the posterior elements is noted. No additional thoracic spine fractures a re identified. IMPRESSION: 1. No evidence for traumatic injury to the thoracic aorta. 2. Acute nondisplaced fractures of the left seventh and 10th ribs. No pneumothorax. 3. Acute fracture through anterior osteophytes at the T10-T11 level that slightly extends along the s uperior endplate of T11. No retropulsion. No extension into the posterior elements. This finding will be called/faxed to the ordering provider at time of dictation. ACT 112: Negative or not required by law. Electronically signed by: Lucas Li M.D. 07/24/2022 9:49 AM
--- NOTE | 2022-07-24 10:30 | CT Scan Report ---
CT OF THE ABDOMEN AND PELVIS WITH CONTRAST CLINICAL HISTORY: Trauma, fall, old right sided hematoma. COMPARISON STUDY: CT of the abdomen and pelvis June 29, 2022. TECHNIQUE: Following IV administration of 82 mL of Optiray, axial images of the abdomen and pelvis we re obtained from the lung bases to the proximal femurs. Images were reviewed in the axial, sagittal, and coronal planes. IV contrast was administered without complication. Automated exposure control wa s utilized for the study. A dose lowering technique was utilized adhering to the principles of ALARA . FINDINGS: The chest CT will be reported separately. There is an acute nondisplaced fracture of the an terolateral left 10th rib. No acute lumbar spine fracture is noted. Note is made of an acute fracture through anterior osteophytes at the T10-T11 level that slightly extends along the superior endplate of T11. There is an acute left acetabular fracture which is nondisplaced. This is depicted on the CT of the left hip which will be reported separately. Bilateral proximal femoral internal fixations are noted. There is no evidence for traumatic injury to the solid abdominal viscera. A hypodense masslike abnormality of the right lateral abdominal wall centered within the musculature extending into the s ubcutaneous tissues is noted. This has persisted since CT of May 11, 2022 and has likely slight ly increased in size, measuring approximately 10.6 x 5.9 cm. Associated hypodensities with peripheral enhancement overlying the right hepatic lobe extending into the intercostal space are also noted. Co lonic diverticulosis is noted without evidence for acute diverticulitis. No hemoperitoneum or pneumop eritoneum is present. Minimally displaced acute fractures of the S2 and S3 vertebra are noted. IMPRESSION: 1. No evidence for traumatic injury to the solid abdominal viscera. 2. Acute nondisplaced left acetabular fracture better depicted on the CT of the left hip which will b e reported separately. 3. Acute nondisplaced lateral left 10th rib fracture. 4. Acute minimally displaced fractures of the S2 and S3 vertebra. 5. Redemonstration of the previously described right lateral abdominal wall hypodense masslike abnorm ality. Given persistence from earlier exams, a neoplasm cannot be excluded. Surgical consultation is recommended. ACT 112: Positive. There are findings on this exam that require communication between the performing entity and the patient following Patient Test Result Information Act ([place] Act 112) guidelines. Electronically signed by: Lucas Li M.D. 07/24/2022 10:29 AM
--- NOTE | 2022-07-24 10:32 | XRay Report ---
XR hip IRVING 2v w pelvis CLINICAL HISTORY: Pain following fall. COMPARISON STUDY: CT of the abdomen and pelvis June 29, 2022. FINDINGS: Healed intertrochanteric fractures of the femurs are noted following internal fixation. No acute femoral fracture is noted. An acute nondisplaced left acetabular fracture is better depicted on subsequent CT. This is not well-visualized by radiography. No additional fractures are present. IMPRESSION: 1. Acute nondisplaced left acetabular fracture better depicted on subsequent CT. 2. Healed bilateral intertrochanteric fractures status post internal fixation. ACT 112: Negative or not required by law. Electronically signed by: Lucas Li M.D. 07/24/2022 10:31 AM
--- NOTE | 2022-07-24 10:40 | CT Scan Report ---
LEFT HIP CT WITHOUT CONTRAST CLINICAL HISTORY: Left hip pain following fall. COMPARISON STUDY: CT of the abdomen and pelvis June 29, 2022. TECHNIQUE: Axial images of the left hip were obtained without IV contrast. Sagittal and coronal recon structions were viewed. Automated exposure control was utilized for the study. A dose lowering techn ique was utilized adhering to the principles of ALARA. FINDINGS: Healed intertrochanteric fracture of the left femur is noted status post internal fixation. There is no acute proximal left femoral fracture. Note is made of an acute nondisplaced left acetabu lar fracture. Fracture is comminuted and involves the left acetabular roof as well as the anterior an d medial rodney of the left acetabulum. No additional acute fractures are identified on this exam. IMPRESSION: 1. Acute nondisplaced left acetabular fracture, as described above. This involves the acetabular roof as well as the medial and anterior rodney of the left acetabulum. 2. Healed intertrochanteric fracture of the left femur status post internal fixation. No acute proxim al left femoral fracture. ACT 112: Negative or not required by law. Electronically signed by: Lucas Li M.D. 07/24/2022 10:38 AM
--- NOTE | 2022-07-24 13:41 | Orthopedic Consultation ---
Date of Service July 24, 2022 Assessment & Plan (1) Nondisplaced fracture of left acetabulum: 1. Patient is not surgical and can be treated conservatively. Patient can have a regular diet 2. Continue with pain control regimen per provider 3. Non-weightbearing until evaluation by Dr. Ashley later this evening I, Luke Ashley, have been reviewed the patient's record and examined the patient in the emergency room. I agree with the diagnosis of a nondisplaced left acetabular fracture. He has a history of IM nailing of the both femurs in the past as well. There is no other obvious orthopedic injuries. He can be treated touch weightbearing on this left side for the next 6 weeks. He can be mobilized and touch weightbearing on this left leg. No other orthopedic restrictions. I need to see him back in clinic in 6 weeks. Any orthopedic questions can be directed me at [phone] History of Present Illness Reason for Consultation: . Requesting Physician: . Attending Physician: Cherry Aldridge MD Mr. Cadena is an 87 y/o male who sustained a mechanical fall this morning at the [facility]. He has a history of b/l IM nailing of his hips. He does not recall exactly how he fell other than he lost is balance and fell forward. He was was brought directly to [facility] for evaluation. He states that he is not in much pain, only when he rocks his LLE back and forth. Otherwise pain is well controlled. Allergies Allergy/AdvReac Type Severity Reaction Status Date / Time Sulfa (Sulfonamide AdvReac Intermediate Unknown Verified 07/24/22 01:29 Antibiotics) Home Medications Medication Instructions Recorded Confirmed Type fluticasone propionate 50 2 spray intranasal [facility] 05/11/22 07/24/22 History mcg/actuation nasal spray,suspension (Flonase Allergy Relief) gabapentin 100 mg capsule 200 mg PO BID 05/11/22 07/24/22 History melatonin 3 mg tablet 6 mg PO HS 05/11/22 07/24/22 History metoprolol succinate 25 mg 25 mg PO DAILY 05/11/22 07/24/22 History tablet,extended release 24 hr rosuvastatin 20 mg tablet 20 mg PO QAM 05/11/22 07/24/22 History sertraline 50 mg tablet 50 mg PO QAM 05/11/22 07/24/22 History torsemide 20 mg tablet 20 mg PO Q OTHER DAY 05/11/22 07/24/22 History vitamin B complex 1 tab PO DAILY 05/11/22 07/24/22 History warfarin 5 mg tablet 5 mg PO 3XWK 05/11/22 07/24/22 History amoxicillin 500 mg capsule 2,000 mg PO DIRECTED PRN PRIOR 06/29/22 07/24/22 History TO DENTAL VISITS amino acids-protein hydrolysate 11 30 ea PO BID 07/24/22 07/24/22 History gram-80 kcal/30 mL oral liquid (Pro-Stat Max) docusate sodium 100 mg tablet 100 mg PO BID 07/24/22 07/24/22 History enoxaparin 80 mg/0.8 mL 80 mg subcut Q12H 07/24/22 07/24/22 History subcutaneous syringe food supplemt, lactose-reduced 247 ea PO QAM 07/24/22 07/24/22 History omeprazole 20 mg capsule,delayed 20 mg PO QAM 07/24/22 07/24/22 History release polyethylene glycol 3350 17 gram 17 g PO QAM 07/24/22 07/24/22 History oral powder packet sennosides 8.6 mg tablet (senna) 8.6 mg PO BID 07/24/22 07/24/22 History warfarin 7.5 mg tablet 7.5 mg PO 4XWK 07/24/22 07/24/22 History 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 Atrial fibrillation On Coumadin - rate controlled per cardio CAD (coronary artery disease) S/p 5 vessel CABG Chronic systolic (congestive) heart failure Improved volume status and dyspnea with initiation of diuretic per 09/2020 cardio records Cranial nerve palsy CVA (cerebral vascular accident) Per records dating back to 2014, patient denies Depression GERD (gastroesophageal reflux disease) HTN (hypertension) Hyperlipidemia Intraventricular conduction delay Chronic per records Ischemic cardiomyopathy Mild decline in LVEF per 09/2020 ECHO (EF 25-30%) Surgical History Aortic valve replaced (during CABG- 2002) History of cholecystectomy History of hip surgery Right hip nailin07/03/20: Grade view 2, MAC#3, ETT 7.5 at [facility] S/P CABG x 5 2002 Family History Unknown No problems noted. Father , 77 Myocardial infarction Brother Diabetes Social History Smoking Status: Never smoker Tobacco Type: Smokeless Tobacco (Dip or Chew) Second Hand Exposure: No; Hx Alcohol Use: No Hx Substance Use: No Preferred Language: Jordanian Communication Ability: Effective Wrapper Hands Sprayer Required: No Beliefs That Will Affect Care: None marital status: / Current Living Situation: Detention Current Living Situation Comment: in Personal Care at [place] [facility] How many Children do You have: 2 Feels Safe at Home: Yes Safety Concerns: Feels Safe At This Time Assistive Devices: Glasses and Walker Review of Systems All systems reviewed & are unremarkable except as noted in HPI & below. Physical Exam Patient in resting comfortably in bed. Leg lengths are equal. He has pain elicited with flexion of the hip. Pain with rocking the leg back and forth. Neurovascularly intact. Results & Data Results & Data Laboratory Results . Diagnostic Findings . PG Care Time/CCT Total # of Minutes Spent Total Time Spent with Patient: Total time spent is greater than 50% in coordination of care (as documented) at patient's floor/unit and/or counseling patient: Coding Level of Care Code 88893 Office/OBS Consult Lvl 2 Diagnoses Nondisplaced fracture of left acetabulum S32.402A
--- NOTE | 2022-07-24 16:36 | Electrocardiogram Report ---
Test Reason : Blood Pressure : / mmHG Vent. Rate : 076 BPM Atrial Rate : 086 BPM P-R Int : 000 ms QRS Dur : 172 ms QT Int : 438 ms P-R-T Axes : 000 -71 102 degrees QTc Int : 492 ms Poor data quality, interpretation may be adversely affected Atrial fibrillation Left axis deviation Left bundle branch block Possible Lateral infarct (cited on or before 23-JUL-2022) Abnormal ECG When compared with ECG of 09-JUL-2022 14:59, No significant change Confirmed by Kishan Vargas ([id number]) on 07/24/2022 4:35:46 PM Referred By: [facility] Confirmed By:Kishan Vargas
[2022-07-24] MEDS: MELATONIN 3 MG TAB PO SCH (20:42)
[2022-07-24] MEDS ORDERED: MoRPHine SULFATE 4 MG/ML 1 ML CARP\\VIAL IV PRN (22:33)
[2022-07-24] MEDS ORDERED: MoRPHine SULFATE 2 MG/ML CARP IV PRN (22:33)
[2022-07-24] MEDS: ACETAMINOPHEN 500 MG TAB PO SCH (22:57)
[2022-07-25] MEDS: ACETAMINOPHEN 500 MG TAB PO SCH ×3 (05:55→21:18)
--- NOTE | 2022-07-25 06:12 | Billing Data ---
Date of Service July 25, 2022 Coding Level of Care Code 75034 Initial Inpt Care Lvl 3
[2022-07-25] MEDS: METOPROLOL SUCC 25MG EXT REL TAB PO SCH (07:12)
[2022-07-25] MEDS: POTASSIUM CHLORIDE 10 MEQ TABCR PO SCH (07:12)
[2022-07-25] MEDS: ROSUVASTATIN CALCIUM 20 MG TAB PO SCH (07:12)
[2022-07-25] MEDS: lisinopril 10 MG TAB PO SCH (07:12)
[2022-07-25] MEDS: GABAPENTIN 100 MG CAP PO SCH ×2 (07:13→21:18)
[2022-07-25] MEDS: TORSEMIDE 20 MG TAB PO SCH (07:13)
[2022-07-25] MEDS: SERTRALINE HCL 50 MG TABLET PO SCH (07:13)
[2022-07-25 09:48] LABS: Hematocrit (blood only) 34.2 % (40.1-51.0); Hemoglobin 10.8 g/dl (14.0-18.0); Mean Corpuscular Hgb Conc 31.6 g/dL (32.0-36.0); Mean Corpuscular Volume 82.2 fL (80.0-100.0); Mean Platelet Volume 10.5 fL (9.4-12.4); Platelet Count 297 K/uL (130-400); RDW Coefficient of Variation 16.7 % (11.5-14.5); RDW Standard Deviation 50.3 fL (36.4-46.3); Red Blood Count 4.16 M/uL (4.63-6.08); White Blood Count 12.94 K/ul (4.8-10.8)
[2022-07-25 10:17] LABS: BUN Creatinine Ratio 36.7 (10-20); Calcium 9.9 mg/dl (8.5-10.1); Creatinine Clr Calc Pharmacy 91.3 ml/min; Est GFR (African American) 105.5 ml/min; Potassium 4.2 mmol/L (3.5-5.1)
--- NOTE | 2022-07-25 11:38 | Hospitalist Progress Note ---
Date of Service July 24, 2022 Assessment & Plan (1) Nondisplaced fracture of left acetabulum: Plan: S/p mechanical fall at the [facility]. CT left hip showing nondisplaced both column fracture of acetabulum without dislocation, and previous ORIF of left femur. 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 ?due to chronic rib fractures and likely resultant restrictive ventilation. No infection/acute pathology on CT chest. - PRN pain regimen as stated above - wean supplemental O2 ad chaparro to maintain sats >90% (3) Leukocytosis: Plan: Patient does not have focal infectious symptoms. Does have chronic abdominal wall hematoma without signs of infection per imaging. This may be due to inflammation in setting of recent intraventricular hemorrhage as well as recent fall. - ordered CRP/procal/blood cultures - hold on abx at this time - trend CBC in AM (4) CAD (coronary artery disease): Plan: Chronic. S/p CABG x5. No current chest pain. - hold Aspirin in setting of recent brain bleed - continue home Lisinopril/Metoprolol/Rosuvastatin - continue home Torsemide QOD - PRN EKG/Nitro SL for chest pain (5) Aortic valve disease: Plan: Chronic, s/p aortic valve replacement in 2002. - hold Warfarin due to recent brain bleed (has been held since hospitalization) (6) Atrial fibrillation: Plan: Chronic. Currently rate-controlled and in a-fib. - continue home BB as stated above - hold home Warfarin due to recent brain bleed (INR 1.5 on admission) - trend INR/PT in AM (7) Abdominal wall hematoma: Plan: Chronic, without acute changes per patient/imaging. - monitor (8) HTN (hypertension): Plan: Chronic, controlled. - continue home TAYE-I/BB (9) Hyperlipidemia: Plan: Chronic, continue home statin (10) Depression: Plan: Chronic, continue home Sertraline Plan FEN/GI: NPO, LR @120cc/hr x1L DVT Prophylaxis: SCDs, hold chemoppx due to recent intraventricular hemorrhage Code Status: DNR/DNI Disposition: med/tele, PT/OT consults placed Admission and Anticipated Discharge Date Admission Date: July 23, 2022 Subjective patient seen and examined, no new complanits Review of Systems Review of Systems: All systems reviewed are negative, apart from the ones contained in the history. Physical Exam Physical Exam: The patient is awake, alert and oriented 3, well developed and well nourished, normocephalic and atraumatic, lying in bed and in no acute distress. HEENT--PERRL, EOMI, mucous membranes and oropharynx mildly dry Neck--supple. No JVD. No bruits. Thyroid normal, trachea midline, no adenopa thy. Heart--normal S1 and S2. No murmurs, rubs or gallops. Lungs--clear bilaterally, no respiratory distress, no accessory muscle use. Abdomen--normal bowel sounds and soft. Mild epigastric and left sided abdominal pain Extremities--no cyanosis or clubbing. No edema. Dermatologic--normal skin turgor, normal color, no abnormal lymph nodes, no rash. Neurologic--cranial nerves II through XII grossly intact. Rheumatologic--normal range of motion. Psychiatric--normal affect. Results & Data Results & Data ([facility]) Vital Signs (Past 12 Hours) Vital Signs Temp Pulse Pulse Pulse Resp BP Pulse Ox 07/25/22 07:45 97.9 F 66 18 115/66 97 07/25/22 07:04 58 L 07/25/22 02:54 97.7 F 64 16 126/73 99 O2 Del Method O2 Flow Rate 07/25/22 07:45 Nasal Cannula 2 07/25/22 07:04 07/25/22 02:54 Nasal Cannula 2.5 PG Care Time/CCT Total # of Minutes Spent Total Time Spent with Patient: Total time spent is greater than 50% in coordination of care (as documented) at patient's floor/unit and/or counseling patient: Coding Level of Care Code 09691 Subseq Hosp Care Lvl 2 Diagnoses Nondisplaced fracture of left acetabulum S32.402A Hypoxia R09.02 Leukocytosis D72.829 CAD (coronary artery disease) I25.10 Aortic valve disease I35.9 Atrial fibrillation I48.91 Abdominal wall hematoma S30.1XXD Encounter type: subsequent encounter HTN (hypertension) I10 Hyperlipidemia E78.5 Depression F32.A Time Spent (min) 35 (1) Abdominal wall hematoma Encounter type: subsequent encounter Qualified Code(s): S30.1XXD - Contusion of abdominal wall, subsequent encounter
--- NOTE | 2022-07-25 15:04 | Hospitalist Progress Note ---
Date of Service July 25, 2022 Assessment & Plan (1) Nondisplaced fracture of left acetabulum: Plan: S/p mechanical fall at the [facility]. CT left hip showing nondisplaced both column fracture of acetabulum without dislocation, and previous ORIF of left femur. 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 No infection/acute pathology on CT chest. Now resolved, patient now on room air (3) Leukocytosis: Plan: Patient does not have focal infectious symptoms. Does have chronic abdominal wall hematoma without signs of infection per imaging. This may be due to inflammation in setting of recent intraventricular hemorrhage as well as recent fall. - ordered CRP/procal/blood cultures - hold on abx at this time - trend CBC in AM (4) CAD (coronary artery disease): Plan: Chronic. S/p CABG x5. No current chest pain. - hold Aspirin in setting of recent brain bleed - continue home Lisinopril/Metoprolol/Rosuvastatin - continue home Torsemide QOD - PRN EKG/Nitro SL for chest pain (5) Aortic valve disease: Plan: Chronic, s/p aortic valve replacement in 2002. - hold Warfarin due to recent brain bleed (has been held since hospitalization) (6) Atrial fibrillation: Plan: Chronic. Currently rate-controlled and in a-fib. - continue home BB as stated above - hold home Warfarin due to recent brain bleed (INR 1.5 on admission) - trend INR/PT in AM (7) Abdominal wall hematoma: Plan: Chronic, without acute changes per patient/imaging. - monitor (8) HTN (hypertension): Plan: Chronic, controlled. - continue home TAYE-I/BB (9) Hyperlipidemia: Plan: Chronic, continue home statin (10) Depression: Plan: Chronic, continue home Sertraline Plan DVT Prophylaxis: SCDs, hold chemoppx due to recent intraventricular hemorrhage Code Status: DNR/DNI Disposition: PT recommends SNF when accepted Admission and Anticipated Discharge Date Admission Date: July 23, 2022 Subjective patient seen and examined, no new complanits Review of Systems Review of Systems: All systems reviewed are negative, apart from the ones contained in the history. Physical Exam Physical Exam: The patient is awake, alert and oriented 3, well developed and well nourished, normocephalic and atraumatic, lying in bed and in no acute dist ress. HEENT--PERRL, EOMI, mucous membranes and oropharynx mildly dry Neck--supple. No JVD. No bruits. Thyroid normal, trachea midline, no adenopathy. Heart--normal S1 and S2. No murmurs, rubs or gallops. Lungs--clear bilaterally, no respiratory distress, no accessory muscle use. Abdomen--normal bowel sounds and soft. Mild epigastric and left sided abdominal pain Extremities--no cyanosis or clubbing. No edema. Dermatologic--normal skin turgor, normal color, no abnormal lymph nodes, no rash. Neurologic--cranial nerves II through XII grossly intact. Rheumatologic--normal range of motion. Psychiatric--normal affect. Results & Data Results & Data ([facility]) Vital Signs (Past 12 Hours) Vital Signs Temp Pulse Pulse Resp BP Pulse Ox O2 Del Method 07/25/22 11:51 97.7 F 71 16 96/59 L 92 Room Air 07/25/22 07:45 97.9 F 66 18 115/66 97 Nasal Cannula 07/25/22 07:04 58 L O2 Flow Rate 07/25/22 11:51 07/25/22 07:45 2 07/25/22 07:04 PG Care Time/CCT Total # of Minutes Spent Total Time Spent with Patient: Total time spent is greater than 50% in coordination of care (as documented) at patient's floor/unit and/or counseling patient: Coding Level of Care Code 01721 Subseq Hosp Care Lvl 2 Diagnoses Nondisplaced fracture of left acetabulum S32.402A Hypoxia R09.02 Leukocytosis D72.829 CAD (coronary artery disease) I25.10 Aortic valve disease I35.9 Atrial fibrillation I48.91 Abdominal wall hematoma S30.1XXD Encounter type: subsequent encounter HTN (hypertension) I10 Hyperlipidemia E78.5 Depression F32.A Time Spent (min) 35 (1) Abdominal wall hematoma Encounter type: subsequent encounter Qualified Code(s): S30.1XXD - Contusion of abdominal wall, subsequent encounter
[2022-07-25] MEDS: MELATONIN 3 MG TAB PO SCH (21:18)
[2022-07-26] MEDS: ACETAMINOPHEN 500 MG TAB PO SCH ×3 (06:06→20:55)
--- NOTE | 2022-07-26 07:47 | Progress Notes ---
DATE OF SERVICE: 07/26/2022. SUBJECTIVE: An 87-year-old gentleman with multiple medical comorbidities, admitted status post a fal l with rib fractures and a left nondisplaced acetabular fracture. He is doing well this morning. No new complaints. Mostly just having chest pain from his rib fractures. Denies any hip pain this mor eduard. OBJECTIVE: VITAL SIGNS: Temperature 36.5. Vital signs are stable. GENERAL: Shows a frail, elderly male. He is lying in bed. He is awake, alert and oriented. EXTREMITIES: Examination of the left hip reveals leg lengths to be equal. Both legs are well aligne d. He does have pain with any type of leg movement on either side really. He is neurologically inta ct. No significant swelling or bruising. ASSESSMENT: An 87-year-old gentleman with multiple medical comorbidities and declining health status post several falls with several rib fractures and left nondisplaced acetabular fracture. Orthopedic ally, he is stable. PLAN: Plan is for a toe-touch weightbearing in the left leg for the next 6 weeks. He certainly shou ld be mobilized. He can weight bear as tolerated on the right side. There is no range of motion samaniego itations. I just need to see him back in about 6 weeks. Any orthopedic questions can be directed to me at [phone]. We are going to sign off for now as there is nothing more orthopedically to do at this point. Any questions, give us a call. Job ID: [id number]
[2022-07-26] MEDS: lisinopril 10 MG TAB PO SCH (08:23)
[2022-07-26] MEDS: GABAPENTIN 100 MG CAP PO SCH ×2 (08:23→20:55)
[2022-07-26] MEDS: ROSUVASTATIN CALCIUM 20 MG TAB PO SCH (08:23)
[2022-07-26] MEDS: SERTRALINE HCL 50 MG TABLET PO SCH (08:23)
[2022-07-26] MEDS: METOPROLOL SUCC 25MG EXT REL TAB PO SCH (08:23)
[2022-07-26] MEDS: POTASSIUM CHLORIDE 10 MEQ TABCR PO SCH (08:24)
[2022-07-26 08:31] LABS: Hematocrit (blood only) 32.9 % (40.1-51.0); Hemoglobin 10.3 g/dl (14.0-18.0); Mean Corpuscular Hemoglobin 24.9 pg (25.0-34.0); Mean Corpuscular Hgb Conc 31.3 g/dL (32.0-36.0); Mean Corpuscular Volume 79.7 fL (80.0-100.0); Mean Platelet Volume 10.1 fL (9.4-12.4); Platelet Count 274 K/uL (130-400); RDW Coefficient of Variation 16.6 % (11.5-14.5); RDW Standard Deviation 47.6 fL (36.4-46.3); Red Blood Count 4.13 M/uL (4.63-6.08); White Blood Count 14.18 K/ul (4.8-10.8)
[2022-07-26 09:04] LABS: BUN Creatinine Ratio 35.4 (10-20); Calcium 9.4 mg/dl (8.5-10.1); Creatinine Clr Calc Pharmacy 84.2 ml/min; Est GFR (African American) 102.1 ml/min; Est GFR (Non-African American) 88.1 ml/min; Potassium 4.2 mmol/L (3.5-5.1)
--- NOTE | 2022-07-26 15:33 | Hospitalist Progress Note ---
Date of Service July 26, 2022 Assessment & Plan (1) Nondisplaced fracture of left acetabulum: Plan: S/p mechanical fall at the [facility]. CT left hip showing nondisplaced both column fracture of acetabulum without dislocation, and previous ORIF of left femur. 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 No infection/acute pathology on CT chest. Now resolved, patient now on room air (3) Leukocytosis: Plan: Patient does not have focal infectious symptoms. Does have chronic abdominal wall hematoma without signs of infection per imaging. This may be due to inflammation in setting of recent intraventricular hemorrhage as well as recent fall. - ordered CRP/procal/blood cultures - hold on abx at this time - trend CBC in AM (4) CAD (coronary artery disease): Plan: Chronic. S/p CABG x5. No current chest pain. - hold Aspirin in setting of recent brain bleed - continue home Lisinopril/Metoprolol/Rosuvastatin - continue home Torsemide QOD - PRN EKG/Nitro SL for chest pain (5) Aortic valve disease: Plan: Chronic, s/p aortic valve replacement in 2002. - hold Warfarin due to recent brain bleed (has been held since hospitalization) (6) Atrial fibrillation: Plan: Chronic. Currently rate-controlled and in a-fib. - continue home BB as stated above - hold home Warfarin due to recent brain bleed (INR 1.5 on admission) - trend INR/PT in AM (7) Abdominal wall hematoma: Plan: Chronic, without acute changes per patient/imaging. - monitor (8) HTN (hypertension): Plan: Chronic, controlled. - continue home TAYE-I/BB (9) Hyperlipidemia: Plan: Chronic, continue home statin (10) Depression: Plan: Chronic, continue home Sertraline Plan DVT Prophylaxis: SCDs, hold chemoppx due to recent intraventricular hemorrhage Code Status: DNR/DNI Disposition: PT recommends SNF when accepted Admission and Anticipated Discharge Date Admission Date: July 23, 2022 Subjective patient seen and examined, no new complaints, sitting up on the bed Review of Systems Review of Systems: All systems reviewed are negative, apart from the ones contained in the history. Physical Exam Physical Exam: The patient is awake, alert and oriented 3, well developed and well nourished, normocephalic and atraumatic, lying in bed and in no acute distress. HEENT--PERRL, EOMI, mucous membranes and oropharynx mildly dry Neck--supple. No JVD. No bruits. Thyroid normal, trachea midline, no adenopathy. Heart--normal S1 and S2. No murmurs, rubs or gallops. Lungs--clear bilaterally, no respiratory distress, no accessory muscle use. Abdomen--normal bowel sounds and soft. Mild epigastric and left sided abdominal pain Extremities--no cyanosis or clubbing. No edema. Dermatologic--normal skin turgor, normal color, no abnormal lymph nodes, no rash. Neurologic--cranial nerves II through XII grossly intact. Rheumatologic--normal range of motion. Psychiatric--normal affect. Results & Data Results & Data ([facility]) Vital Signs (Past 12 Hours) Vital Signs Temp Pulse Resp BP Pulse Ox O2 Del Method O2 Flow Rate 07/26/22 15:15 98.6 F 62 20 122/74 93 Room Air 07/26/22 12:46 97.7 F 65 20 114/61 96 Nasal Cannula 3 07/26/22 10:42 Nasal Cannula 3 07/26/22 07:36 98.1 F 86 18 120/75 98 Nasal Cannula 4 PG Care Time/CCT Total # of Minutes Spent Total Time Spent with Patient: Total time spent is greater than 50% in coordination of care (as documented) at patient's floor/unit and/or counseling patient: Coding Level of Care Code 44426 Subseq Hosp Care Lvl 2 Diagnoses Nondisplaced fracture of left acetabulum S32.402A Hypoxia R09.02 Leukocytosis D72.829 CAD (coronary artery disease) I25.10 Aortic valve disease I35.9 Atrial fibrillation I48.91 Atrial fibrillation type: unspecified Abdominal wall hematoma S30.1XXD Encounter type: subsequent encounter HTN (hypertension) I10 Hyperlipidemia E78.5 Depression F32.A Time Spent (min) 35 (1) Atrial fibrillation Atrial fibrillation type: unspecified Qualified Code(s): I48.91 - Unspecified atrial fibrillation (2) Abdominal wall hematoma Encounter type: subsequent encounter Qualified Code(s): S30.1XXD - Contusion of abdominal wall, subsequent encounter
[2022-07-26] MEDS ORDERED: bisacodyL 10 MG SUPP PR STA (16:10)
[2022-07-26] MEDS: POLYETHYLENE (MIRALAX) 17 GM PACK PO SCH (16:26)
[2022-07-26] MEDS: MELATONIN 3 MG TAB PO SCH (20:57)
[2022-07-27] MEDS ORDERED: BENZONATATE 100 MG CAPSULE PO PRN (04:46)
[2022-07-27] MEDS: ACETAMINOPHEN 500 MG TAB PO SCH ×2 (05:01→13:37)
[2022-07-27] MEDS: ROSUVASTATIN CALCIUM 20 MG TAB PO SCH (07:53)
[2022-07-27] MEDS: POLYETHYLENE (MIRALAX) 17 GM PACK PO SCH (07:53)
[2022-07-27] MEDS: TORSEMIDE 20 MG TAB PO SCH (07:55)
[2022-07-27] MEDS: SERTRALINE HCL 50 MG TABLET PO SCH (07:55)
[2022-07-27] MEDS: lisinopril 10 MG TAB PO SCH (07:55)
[2022-07-27] MEDS: METOPROLOL SUCC 25MG EXT REL TAB PO SCH (07:56)
[2022-07-27] MEDS: GABAPENTIN 100 MG CAP PO SCH (07:56)
[2022-07-27] MEDS: POTASSIUM CHLORIDE 10 MEQ TABCR PO SCH (07:57)
--- NOTE | 2022-07-27 14:28 | Discharge Summary ---
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 He presented to [facility] ED from [facility] on 07/23 due to upper thigh pain following a ground level mechanical fall that occurred earlier in the day while he was walking to the bathroom. Of note the patient was recently admitted at [facility] on 07/09/2022 from our ED for acute intraventricular hemorrhage (of note patient had PCC/Kcentra/vitamin K provided in our ED due to chronic Warfarin use, before transfer to [place] at that time). He was transitioned to [facility] after the [facility] hospitalization. In the ED the patient was hypoxic to 84% on room air and improved to 99% on 2L/min NC. Otherwise hemodynamically stable. Labs significant for WBC 20 (baseline 15-17, with neutrophilic predominance and significant L shift), Hgb 12.1 (~baseline). INR 1.5/PT 16 (INR was 2.9 on 07/09). Na 134. UA no signs of infection. CT head/c-spine without acute findings. CT chest with old right rib fractures but no acute fractures or consolidations/opacities. CT A/P with complex mass in right lateral abdominal wall that may represent evolving hematoma; no signs of infection. CT left hip showing nondisplaced both column fracture of acetabulum without dislocation, and previous ORIF of left femur. Patient unable to ambulate in the ED and we were thus called for admission. Principal Diagnosis left acetabular fracture Discharge Exam The patient is awake, alert and oriented 3, well developed and well nourished, normocephalic and atraumatic, lying in bed and in no acute distress. HEENT--PERRL, EOMI, mucous membranes and oropharynx mildly dry Neck--supple. No JVD. No bruits. Thyroid normal, trachea midline, no adenopathy. Heart--normal S1 and S2. No murmurs, rubs or gallops. Lungs--clear bilaterally, no respiratory distress, no accessory muscle use. Abdomen--normal bowel sounds and soft. Mild epigastric and left sided abdominal pain Extremities--no cyanosis or clubbing. No edema. Dermatologic--normal skin turgor, normal color, no abnormal lymph nodes, no rash. Neurologic--cranial nerves II through XII grossly intact. Rheumatologic--normal range of motion. Psychiatric--normal affect. Discharge Data Allergies Allergy/AdvReac Type Severity Reaction Status Date / Time Sulfa (Sulfonamide AdvReac Intermediate Unknown Verified 07/24/22 01:29 Antibiotics) Consultations 07/23/22 22:58 ED Decision to Admit Stat 07/24/22 02:30 Consult Orthopedic Surgery Routine Ordered Studies 07/23/22 20:42 CT cervical spine wo con Urgent CT head/brain wo con Urgent 07/23/22 20:43 CT abd pelvis IV con only Urgent CT chest diagnostic w con Urgent 07/23/22 21:23 CT hip LT wo con Urgent CT hip RT wo con Urgent Hospital Course (1) Nondisplaced fracture of left acetabulum: S/p mechanical fall at [facility] re[facility]. CT left hip showing nondisplaced both column fracture of acetabulum without dislocation, and previous ORIF of left femur. 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 No infection/acute pathology on CT chest. Now resolved, patient now on room air (3) Leukocytosis: Patient does not have focal infectious symptoms. Does have chronic abdominal wall hematoma without signs of infection per imaging. This may be due to inflammation in setting of recent intraventricular hemorrhage as well as recent fall. - ordered CRP/procal/blood cultures - hold on abx at this time - trend CBC in AM (4) CAD (coronary artery disease): Chronic. S/p CABG x5. No current chest pain. - hold Aspirin in setting of recent brain bleed - continue home Lisinopril/Metoprolol/Rosuvastatin - continue home Torsemide QOD - PRN EKG/Nitro SL for chest pain (5) Aortic valve disease: Chronic, s/p aortic valve replacement in 2002. - hold Warfarin due to recent brain bleed (has been held since hospitalization) (6) Atrial fibrillation: Chronic. Currently rate-controlled and in a-fib. - continue home BB as stated above - hold home Warfarin due to recent brain bleed (INR 1.5 on admission) - trend INR/PT in AM (7) Abdominal wall hematoma: Chronic, without acute changes per patient/imaging. - monitor (8) HTN (hypertension): Chronic, controlled. - continue home TAYE-I/BB (9) Hyperlipidemia: Chronic, continue home statin (10) Depression: Chronic, continue home Sertraline Plan DVT Prophylaxis: SCDs, hold chemoppx due to recent intraventricular hemorrhage Code Status: DNR/DNI Disposition: PT recommends SNF when accepted Total Time Total Time Spent Total Time Spent (In Minutes): 35 Discharge Plan Discharge Items Patient Disposition: Transfer Half-Way Fac Reason For Visit: LEFT NON-DISPLACED ACETABULAR FRACTURE Discharge Diagnosis: Left non-displaced acetabular fracture Activity: Per Instructions section Activity Comment: Toe-touch weightbearing on left leg for 6 weeks Weightbearing: Left toe touch Weightbearing Comment: Toe-touch weightbearing on left leg for 6 weeks Non-emergency contact: Primary Care Provider Call non-emergency contact if: you have any medication questions Follow-up/Referrals: Luke Ashley MD [Physician] - (Orthopedic follow-up in [address]) [facility] Mauro Bhatia [Primary Care Provider] - Diet: Regular Addtl Attending Provider Instructions: please make appointment to follow up with your regular doctors Pending Studies at Discharge: No Stand-Alone Forms: My [facility] Skilled Items Patient informed of condition?: Yes DNR: Yes Discharge Level of Care: Skilled Communicable Disease: No Discharge Prognosis: Stable Lines: None Urinary Catheter: No Medications and DC Order Prescriptions: Continued torsemide 20 mg tablet 20 mg PO Q OTHER DAY melatonin 3 mg Tablet 6 mg PO HS warfarin 5 mg tablet 5 mg PO 3XWK Rx Instructions: TAKE 5MG EVERY SATURDAY/SATURDAY/SATURDAY vitamin B complex Tablet 1 tab PO DAILY gabapentin 100 mg Capsule 200 mg PO BID metoprolol succinate 25 mg tablet extended release 24 hr 25 mg PO DAILY fluticasone propionate [Flonase Allergy Relief] 50 mcg/actuation [place],Suspension 2 spray INTRANASAL QAM Rx Instructions: administer into each nostril sertraline 50 mg tablet 50 mg PO QAM rosuvastatin 20 mg tablet 20 mg PO QAM docusate sodium 100 mg Tablet 100 mg PO BID enoxaparin 80 mg/0.8 mL Syringe 80 mg SUBCUT Q12H Rx Instructions: BEGIN 07/23/22, END 08/06/22. INJECT 80MG UNDER THE SKIN IN THE MORNING AND 80MG UNDER THE SKIN BEFORE BEDTIME. DO ALL THIS FOR 14 DAYS. STOP LOVENOX ONCE PATIENT HAS TWO CONSECUTIVE INR LEVELS WITHIN THE GOAL. food supplemt, lactose-reduced Liquid 247 ea PO QAM Rx Instructions: TAKE 247 MLs EVERY MORNING omeprazole 20 mg capsule,delayed release(DR/EC) 20 mg PO QAM polyethylene glycol 3350 17 gram Powder In Packet 17 g PO QAM Pro-Stat Max 11 gram-80 kcal/30 mL Liquid 30 ea PO BID Rx Instructions: TAKE 30ML BY MOUTH IN THE MORNING AND 30ML BEFORE BEDTIME sennosides [senna] 8.6 mg Tablet 8.6 mg PO BID warfarin 7.5 mg tablet 7.5 mg PO 4XWK Rx Instructions: TAKE 7.5MG EVERY SATURDAY/ SATURDAY/SATURDAY/SATURDAY. Discontinued amoxicillin 500 mg Capsule 2,000 mg PO DIRECTED PRN (Reason: PRIOR TO DENTAL VISITS) Discharge Orders: Discharge Order (Routine); Ordered 07/27/22 Ordered By: Cherry Aldridge Admission Data Admit Date/Time: 07/23/22 23:58 Attending Provider: Cherry Aldridge Admit Provider: José Miguel Irizarry [facility] Other Providers: Chalo Howard ; Luke Ashley Coding Level of Care Code D/C DAY MANAGEMENT >30 MINS Diagnoses Nondisplaced fracture of left acetabulum S32.402A Hypoxia R09.02 Leukocytosis D72.829 CAD (coronary artery disease) I25.10 Aortic valve disease I35.9 Atrial fibrillation I48.91 Atrial fibrillation type: unspecified Abdominal wall hematoma S30.1XXD Encounter type: subsequent encounter HTN (hypertension) I10 Hyperlipidemia E78.5 Depression F32.A Time Spent (min) 35
== END 2022-07-27 15:01 | DRG 543 ==
LOC: ED 19:59 → EDINP 23:58 → SUATTDRO 23:58 → 2W 07-24 02:30

== ENCOUNTER 2022-08-08 14:22 | Inpatient (IN) ==
--- NOTE | 2022-08-08 14:45 | Emergency Department Note ---
Impression & Plan Abdominal wall abscess, Atrial fibrillation, Leucocytosis, Anticoagulant long- term use ED Provider Note Provider: Kulwinder Rowe MD DATE OF SERVICE: 08/08/2022 CHIEF COMPLAINT: Seepage from right abdominal wall, ? infection HISTORY OF PRESENT ILLNESS: Patient is a 87-year-old gentleman history of history of recent hospitalization for acetabular rib fracture with an underlying history of atrial fibrillation, CAD, and hypertension on warfarin sent from the [facility] today for evaluation of the right side of his abdomen. He states for several months there has been no abdominal wall collection here. States that for maybe a day or 2 to the best of his knowledge its been seeping some. Some pain here. Denies fever. Denies new trauma. From from the facility indicates they are concerned this could represent abscess. Was given Tylenol around noon today. Still has pain with touching of the area. Denies significant pain of the left hip region or chest and again denies new falls. REVIEW OF SYSTEMS: A total of 10 review of systems was obtained and negative except as stated above in the HPI. PAST MEDICAL HISTORY: As noted above MEDICATIONS: Reviewed medication list from the facility SOCIAL HISTORY: , currently resides at the [facility] PHYSICAL EXAM: GENERAL: alert and oriented in no acute distress on stretcher Head: normocephalic and atraumatic EYES: No injection, discharge or icterus. NECK: Trachea midline. ENT: Mucous membranes pink and moist. LUNGS: Airway patent. No retractions. Breath sounds clear HEART: Regular rate and rhythm. No chest wall tenderness ABDOMEN: Soft and non-tender, without guarding or rebound; there is evidence of an approximately 7 cm x 12 cm erythematous area of the right lower quadrant to the right flank. There is some approximately 1 cm ulcerated area with some granulation tissue and serous to slightly yellow drainage. No active bleeding. Tenderness to this area. SKIN: Acyanotic, warm, dry, without rashes EXTREMITIES: Without swelling, tenderness or deformity NEUROLOGICAL: No focal deficits. No aphasia. No facial droop or slurred speech. Normal strength and tone in the extremities. Sensation to gross touch normal. Ambulatory. Patient's laboratory studies and imaging reviewed. Differential includes Cellulitis, abscess, MRSA infection, necrotizing fasciitis, dermatitis, oncological process as well as other pathologies. IMPRESSION/MEDICAL DECISION MAKING: Patient with at a more chronic right-sided abdominal wall mass based on prior imaging. Now some increased redness and seepage from the area. Denies si gnificant systemic symptoms. Basic labs were checked including blood cultures. Surface culture from the area was obtained and the area was cleaned with saline and we bandaged. Did have Tylenol prior to arrival. Is on warfarin. Basic lab work was checked and we will proceed with a CT scan of the abdomen to evaluate this abdominal wall area further particuarly for any possible deeper extension given that he is on a anticoagulant. INR 3.5. Procalcitonin NOT significantly elevated. Leukocytosis of 16.4 today but from records it appears he has some chronic leukocytosis here over the past year. Stable to slightly improved mild anemia. No significant renal dysfunction. CT of the abdomen pelvis shows a loculated fluid collection of the right abdominal wall stable to mildly decreased from April to represent an abscess. Still quite a large size. Given this discussed with general surgery given the significant size as well as his anticoagulation status. They recommended antibiotics. Will discuss with the hospitalist further care here. No acute surgical intervention given his elevated INR. DIAGNOSIS: Abdominal wall infection/abscess, long-term anticoagulation, chronic DISPOSITION: Hospitalist will evaluate Patient was agreeable with this plan. Son updated via phone. 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 Atrial fibrillation On Coumadin - rate controlled per cardio CAD (coronary artery disease) S/p 5 vessel CABG Chronic systolic (congestive) heart failure Improved volume status and dyspnea with initiation of diuretic per 09/2020 cardio records Cranial nerve palsy CVA (cerebral vascular accident) Per records dating back to 2014, patient denies Depression GERD (gastroesophageal reflux disease) HTN (hypertension) Hyperlipidemia Intraventricular conduction delay Chronic per records Ischemic cardiomyopathy Mild decline in LVEF per 09/2020 ECHO (EF 25-30%) Surgical History Aortic valve replaced (during CABG- 2002) History of cholecystectomy History of hip surgery Right hip nailin07/03/20: Grade view 2, MAC#3, ETT 7.5 at [facility] S/P CABG x 5 2002 Family History Unknown No problems noted. Father , 77 Myocardial infarction Brother Diabetes Social History Smoking Status: Never smoker Tobacco Type: Smokeless Tobacco (Dip or Chew) Second Hand Exposure: No; Hx Alcohol Use: No Hx Substance Use: No Preferred Language: Swedish Communication Ability: Effective Orthodontist Assistant Required: No Beliefs That Will Affect Care: None marital status: / Current Living Situation: Assisted Current Living Situation Comment: in Personal Care at [place] at [facility] How many Children do You have: 2 Feels Safe at Home: Yes Assistive Devices: Glasses and Walker Allergies Allergies Allergy/AdvReac Type Severity Reaction Status Date / Time Sulfa (Sulfonamide AdvReac Intermediate Unknown Verified 07/24/22 01:29 Antibiotics) Home Meds Home Medications Medication Instructions Recorded Confirmed fluticasone propionate 50 2 spray intranasal QAM 05/11/22 08/08/22 mcg/actuation nasal spray,suspension (Flonase Allergy Relief) gabapentin 100 mg capsule 200 mg PO BID 05/11/22 08/08/22 melatonin 3 mg tablet 6 mg PO HS 05/11/22 08/08/22 metoprolol succinate 25 mg 25 mg PO DAILY 05/11/22 08/08/22 tablet,extended release 24 hr rosuvastatin 20 mg tablet 20 mg PO QAM 05/11/22 08/08/22 sertraline 50 mg tablet 50 mg PO QAM 05/11/22 08/08/22 torsemide 20 mg tablet 20 mg PO Q OTHER DAY 05/11/22 08/08/22 vitamin B complex 1 tab PO DAILY 05/11/22 08/08/22 warfarin 5 mg tablet 5 mg PO 3XWK 05/11/22 08/08/22 docusate sodium 100 mg tablet 100 mg PO AMPM 07/24/22 08/08/22 polyethylene glycol 3350 17 gram 17 g PO QAM 07/24/22 08/08/22 oral powder packet warfarin 7.5 mg tablet 7.5 mg PO 4XWK 07/24/22 08/08/22 acetaminophen 500 mg tablet 500 mg PO Q4 PRN Pain 08/08/22 08/08/22 amoxicillin 500 mg capsule 2,000 mg PO ONCE PRN 1 hour prior 08/08/22 08/08/22 to dental appt carboxymethylcellulose sodium 0.5 2 drp ophthalmic (eye) QID PRN Dry 08/08/22 08/08/22 % eye drops (Refresh Tears) Eyes diphenhydramine HCl 25 mg tablet 25 mg PO Q6 PRN Itching 08/08/22 08/08/22 (Benadryl Allergy) food supplemt, lactose-reduced 1 ea PO DAILY 08/08/22 08/08/22 saliva stimulant comb. no.3 2 spray mucous membrane .Q 2 HOURS 08/08/22 08/08/22 (Biotene Moisturizing Mouth PRN Dry Mouth mucosal spray) sodium chloride-aloe vera nasal 1 applic topical QID PRN nasal 08/08/22 08/08/22 gel (Liberty Saline nasal gel) dryness Results & Data (ED) Vital Signs Vital Signs - 24 hr 08/08/22 14:36 08/08/22 17:11 Temperature 36.7 C Temperature Source Oral Pulse Rate 79 Pulse Rate [Apical] 74 Respiratory Rate 18 18 Respiratory Effort / Characteristics Non-Labored Spontaneous Respiratory Depth Normal Blood Pressure 147/77 H Blood Pressure [Left Arm] 133/70 Blood Pressure Mean 100 Blood Pressure Mean [Left Arm] 91 Blood Pressure Position Sitting Pulse Oximetry 96 98 Oxygen Delivery Method Room Air Sepsis Recent Fever Within 48 Hours Yes Sepsis New/Unexplained Change in Mental Status N/A Sepsis Action Taken by Nursing No Action Required Laboratory Data Result diagrams: 08/08/22 Unknown 08/08/22 Unknown Lab Results 08/08/22 08/08/22 08/08/22 Range/Units 15:22 15:34 17:20 POC Hgb 13.3 L (14.0-18.0) g/dl POC Hct 39 L (42-52) % POC Sodium 136 (135-144) mmol/L POC Potassium 4.7 (3.3-5.0) mmol/L POC Chloride 98 L (101-112) mmol/L POC Total CO2 29 (24-31) mmol/L POC Anion Gap 14.0 L (16-25) mmol/L POC BUN 17 (7-18) mg/dl POC Creatinine 0.6 (0.6-1.3) mg/dl POC Glucose (other) 120 H (70-99) mg/dl Lactate 1.8 (0.4-2.0) mmol/L POC Ioniz Calcium Jhoana 1.18 (1.12-1.32) mmol/l SARS-CoV-2, RNA, NAAT NEGATIVE (NEGATIVE) Administered Medications Discontinued Medications Piperacillin Sod/Tazobactam Sod (Zosyn) 4.5 gm in 120 mls @ 240 mls/hr IV NOW ONE Stop: 08/08/22 17:40 Last Infusion: 08/08/22 18:21 Dose: 0 mls/hr Documented By: Admin: 08/08/22 17:22 Dose: 240 mls/hr Documented By: TIMI Phytonadione 10 mg/ Dextrose 51 mls @ 102 mls/hr IV ONE ONE Stop: 08/08/22 18:49 Last Infusion: 08/08/22 19:14 Dose: 0 mls/hr Documented By: Admin: 08/08/22 18:28 Dose: 102 mls/hr Documented By: TIMI Ioversol (Optiray 350 100ml) 87 ml IV ONCE ONE Stop: 08/08/22 16:11 Last Admin: 08/08/22 16:13 Dose: 87 ml Documented By: NANCY Imaging Data Radiologist's Impression: Abdomen/Pelvis CT 08/08/22 14:40 CT abd pelvis IV con only CLINICAL HISTORY: R abd wall swelling now with seepage, ?abscess TECHNIQUE: Helical axial images of the abdomen and pelvis were obtained and displayed. Automated dose lowering techniques and/or adjustment according to patient size were utilized for this exam. This exam was performed with intravenous contrast. CT DOSE: 837.19 mGy.cm COMPARISON: Comparison is made to CT abdomen pelvis 07/23/2022, CT abdomen pelvis 10/13/2017, and CT abdomen pelvis 05/11/2022 FINDINGS: Lower chest: Cardiomegaly is partially visualized. Interstitial lung disease is suggested. Liver: Unremarkable. No focal lesions are seen. Gallbladder and biliary tree: Patient is status post cholecystectomy. No intra- or extrahepatic biliary ductal dilation. Pancreas: Cystic lesions are seen in the pancreas measuring up to 12 mm in the tail. These may represent a IPMN. Spleen: Unremarkable. Adrenals: Unremarkable. Kidneys and ureters: Unremarkable. Bladder: Unremarkable. Reproductive organs: Unremarkable. Bowel: Diverticulosis is seen without evidence of diverticulitis. Lymph nodes Retroperitoneal: Unremarkable. Pelvic: Unremarkable. Mesenteric: Unremarkable. Peritoneum: Normal. Vessels: Atherosclerotic calcifications are seen. Abdominal wall: Right abdominal wall loculated enhancing fluid collection is stable to minimally decreased from prior exam. No extension into the peritoneal cavity is seen. Bones: Degenerative changes in the visualized spine. Bilateral femoral rods are noted. Old healed rib fractures are partially visualized. Redemonstration of fractures in the left acetabulum, left lateral 11th rib and S2 and S3 vertebrae. Subacute fractures of additional left ribs are suggested. IMPRESSION: 1. Redemonstration of rim-enhancing loculated fluid collection in the right abdominal wall which is stable to mildly decreased in size from prior exam and definitely decreased from 05/11/2022. Findings are favored to represent an abscess. 2. Redemonstration of acute to subacute fractures as above. 3. Cystic lesions in the pancreas may represent IPMN. 4. Diverticulosis without evidence of diverticulitis. 5. Additional findings as above. ACT 112: Negative or not required by law. Electronically signed by: Jed Jackson M.D. 08/08/2022 4:36 PM Discharge Plan Visit Data Chief Complaint: Skin Problem Stated Complaint: ABSCESS ON R FLANK ED Provider: Kulwinder Rowe Discharge Problem: Abdominal wall abscess, Atrial fibrillation, Leucocytosis, Anticoagulant long- term use Patient Disposition: Admitted As Inpatient Discharge Instructions Interventions: ED Discharge Assessment Last Done: 08/08/22 20:50
[2022-08-08 15:35] LABS: iSTAT Creatinine 0.6 mg/dl (0.6-1.3); iSTAT Hemoglobin 13.3 g/dl (14.0-18.0); iSTAT Ionized Calcium 1.18 mmol/l (1.12-1.32); iSTAT Potassium 4.7 mmol/L (3.3-5.0)
[2022-08-08 15:40] LABS: Basophils # (auto) 0.03 K/uL (0-0.2); Basophils % (auto) 0.2 %; Eosinophils # (auto) 0.27 K/uL (0-0.50); Eosinophils % (auto) 1.6 %; Hematocrit (blood only) 38.4 % (40.1-51.0); Hemoglobin 11.8 g/dl (14.0-18.0); Immature Granulocytes # (auto) 0.07 K/uL (0.00-0.02); Immature Granulocytes % (auto) 0.4 %; Lymphocytes # (auto) 0.41 K/uL (1.2-3.4); Lymphocytes % (auto) 2.5 %; Mean Corpuscular Hemoglobin 24.9 pg (25.0-34.0); Mean Corpuscular Hgb Conc 30.7 g/dL (32.0-36.0); Mean Corpuscular Volume 81.2 fL (80.0-100.0); Mean Platelet Volume 9.6 fL (9.4-12.4); Monocytes # (auto) 1.15 K/uL (0.24-0.82); Neutrophils # (auto) 14.51 K/uL (1.4-6.5); Neutrophils % (auto) 88.3 %; Platelet Count 410 K/uL (130-400); RDW Coefficient of Variation 16.3 % (11.5-14.5); RDW Standard Deviation 48.2 fL (36.4-46.3); Red Blood Count 4.73 M/uL (4.63-6.08); White Blood Count 16.44 K/ul (4.8-10.8)
[2022-08-08 16:01] LABS: INR 3.5 (0.9-1.1); Partial Thromboplastin Ratio 1.5; Partial Thromboplastin Time 39.9 Seconds (21.0-31.0); Prothrombin Time 34.8 Seconds (9.0-12.0)
[2022-08-08] MEDS ORDERED: OPTIRAY 350 100ml IV ONE (16:10)
[2022-08-08 16:24] LABS: Albumin Level 3.7 gm/dl (3.4-5.0); Bilirubin,Total 0.6 mg/dl (0.2-1.0); Calcium 9.3 mg/dl (8.5-10.1); Creatinine Clr Calc Pharmacy 94.1 ml/min; Est GFR (African American) 105.5 ml/min; Globulin 3.7 gm/dl (2.5-4.0); Potassium 4.9 mmol/L (3.5-5.1); Total Protein 7.4 gm/dl (6.0-8.3)
--- NOTE | 2022-08-08 16:38 | CT Scan Report ---
CT abd pelvis IV con only CLINICAL HISTORY: R abd wall swelling now with seepage, ?abscess TECHNIQUE: Helical axial images of the abdomen and pelvis were obtained and displayed. Automated dose lowering techniques and/or adjustment according to patient size were utilized for this exam. This e xam was performed with intravenous contrast. CT DOSE: 837.19 mGy.cm COMPARISON: Comparison is made to CT abdomen pelvis 07/23/2022, CT abdomen pelvis 10/13/2017, and CT ab domen pelvis 05/11/2022 FINDINGS: Lower chest: Cardiomegaly is partially visualized. Interstitial lung disease is suggested. Liver: Unremarkable. No focal lesions are seen. Gallbladder and biliary tree: Patient is status post cholecystectomy. No intra- or extrahepatic bilia ry ductal dilation. Pancreas: Cystic lesions are seen in the pancreas measuring up to 12 mm in the tail. These may repres ent a IPMN. Spleen: Unremarkable. Adrenals: Unremarkable. Kidneys and ureters: Unremarkable. Bladder: Unremarkable. Reproductive organs: Unremarkable. Bowel: Diverticulosis is seen without evidence of diverticulitis. Lymph nodes Retroperitoneal: Unremarkable. Pelvic: Unremarkable. Mesenteric: Unremarkable. Peritoneum: Normal. Vessels: Atherosclerotic calcifications are seen. Abdominal wall: Right abdominal wall loculated enhancing fluid collection is stable to minimally decr eased from prior exam. No extension into the peritoneal cavity is seen. Bones: Degenerative changes in the visualized spine. Bilateral femoral rods are noted. Old healed rib fractures are partially visualized. Redemonstration of fractures in the left acetabulum, left latera l 11th rib and S2 and S3 vertebrae. Subacute fractures of additional left ribs are suggested. IMPRESSION: 1. Redemonstration of rim-enhancing loculated fluid collection in the right abdominal wall which is stable to mildly decreased in size from prior exam and definitely decreased from 05/11/2022. Findings are favored to represent an abscess. 2. Redemonstration of acute to subacute fractures as above. 3. Cystic lesions in the pancreas may represent IPMN. 4. Diverticulosis without evidence of diverticulitis. 5. Additional findings as above. ACT 112: Negative or not required by law. Electronically signed by: Jed Jackson M.D. 08/08/2022 4:36 PM
[2022-08-08] MEDS ORDERED: PIPERACILLIN/TAZOBACTAM 4.5 GM/120 ML BAG IV ONE (17:11)
[2022-08-08] MEDS ORDERED: PHYTONADIONE 10 MG in DEXTROSE 5% 50 ML IV ONE (18:20)
--- NOTE | 2022-08-08 18:36 | History & Physical Report ---
Date of Service August 08, 2022 Assessment & Plan (1) Abdominal wall anomaly: Plan: Initially presented with a presumed abdominal wall hematoma in 04/2022. This was monitored and has repeated CTs monitoring it. Various times has been called a hematoma, a mass, and now an abscess, so what is actually going on is unclear. Patient has had a persistent, mild leukocytosis, but otherwise denies systemic symptoms to me. - Received Zosyn in the ER - Consulted surgery -> Consideration being given for bedside aspiration to start to get prelim cell count, Gram stain, culture, etc. vs. full I&D. - Defer abx for now. Patient is NOT septic, and therefore, I think we have the luxury of deferring antibiotics for the night. - Will get superficial ultrasound - Reverse INR as below per cardiology (2) Leukocytosis: Plan: Mildly elevated in 09/2021, but noted to be higher in 04/2022 when first presenting with the hematoma. Likely in some way related. - Plan as above (3) Aortic valve disease: Plan: Hx of mechanical aortic valve for rheumatic fever. - INR goal is 2.5 - 3.5. Discussed with Dr. Pruitt: * Reverse with vitamin K * Start heparin when INR < 2.0 * Bridge with heparin (4) Acetabulum fracture, left: Plan: Noted last admission on 07/23/2022. Non-operative management per orthopedics. - Toe-touch weight-bearing on left leg for 6 weeks (End around mid-August) (5) Ischemic cardiomyopathy: Plan: EF was 25-30% in 09/2020 in the [place] office. Declined ischemic work-up at that time. - Continue home metoprolol succinate, statin - Monitor volume status -> Holding torsemide for now, but can restart as needed - Given complex cardiology hx, [facility] cardiology consulted. (6) CAD (coronary artery disease): Plan: S/p 5vCABG in 2002. Was on ASA previously, but appears to have been stopped early this month by his care facility. - As above (7) HTN (hypertension): Plan: BP is 125/70 in the ER. - Plan as above. (8) Atrial fibrillation: Plan: Permanent. - Rate control with Toprol - Anticoagulation with warfarin/heparin gtt as above DNR/DNI - Per patient in the ER. He reports he has had a good life and is "ready." Declines CPR, intubation, other interventions, acknowledging he would pass away. History of Present Illness Primary Care Provider: [facility] 87-year-old male with a history of permanent A. fib, coronary artery disease status post 5 vessel CABG and mechanical aortic valve, and cardiomyopathy who presents with right abdominal wall fluid collection. The patient was first noted to have this fluid collection in April 2022. At the time it was noted to have presented very abruptly. He was seen in the ER and CT scan indicated a possible abdominal wall hematoma. This fit clinically with the patient as he is on warfarin for his aortic valve with an INR goal of 2.53.5. The area was monitored via recurrent CT scan, and has variably been described as no evolving hematoma, possible mass, versus abscess. Per the patient's report, it is now started to seep, and he was sent into the hospital for further evaluation. The patient denies any sort of fevers/chills, shortness of breath, abdominal pain, chest pain, nausea/vomiting. He reports the area is mildly tender to palpation, but otherwise is in his normal state of health. Allergies Allergy/AdvReac Type Severity Reaction Status Date / Time Sulfa (Sulfonamide AdvReac Intermediate Unknown Verified 07/24/22 01:29 Antibiotics) Home Medications Medication Instructions Recorded Confirmed Type fluticasone propionate 50 2 spray intranasal QAM 05/11/22 08/08/22 History mcg/actuation nasal spray,suspension (Flonase Allergy Relief) gabapentin 100 mg capsule 200 mg PO BID 05/11/22 08/08/22 History melatonin 3 mg tablet 6 mg PO HS 05/11/22 08/08/22 History metoprolol succinate 25 mg 25 mg PO DAILY 05/11/22 08/08/22 History tablet,extended release 24 hr rosuvastatin 20 mg tablet 20 mg PO QAM 05/11/22 08/08/22 History sertraline 50 mg tablet 50 mg PO QAM 05/11/22 08/08/22 History torsemide 20 mg tablet 20 mg PO Q OTHER DAY 05/11/22 08/08/22 History vitamin B complex 1 tab PO DAILY 05/11/22 08/08/22 History warfarin 5 mg tablet 5 mg PO 3XWK 05/11/22 08/08/22 History docusate sodium 100 mg tablet 100 mg PO AMPM 07/24/22 08/08/22 History polyethylene glycol 3350 17 gram 17 g PO QAM 07/24/22 08/08/22 History oral powder packet warfarin 7.5 mg tablet 7.5 mg PO 4XWK 07/24/22 08/08/22 History acetaminophen 500 mg tablet 500 mg PO Q4 PRN Pain 08/08/22 08/08/22 History amoxicillin 500 mg capsule 2,000 mg PO ONCE PRN 1 hour prior 08/08/22 08/08/22 History to dental appt carboxymethylcellulose sodium 0.5 2 drp ophthalmic (eye) QID PRN Dry 08/08/22 08/08/22 History % eye drops (Refresh Tears) Eyes diphenhydramine HCl 25 mg tablet 25 mg PO Q6 PRN Itching 08/08/22 08/08/22 History (Benadryl Allergy) food supplemt, lactose-reduced 1 ea PO DAILY 08/08/22 08/08/22 History saliva stimulant comb. no.3 2 spray mucous membrane .Q 2 HOURS 08/08/22 08/08/22 History (Biotene Moisturizing Mouth PRN Dry Mouth mucosal spray) sodium chloride-aloe vera nasal 1 applic topical QID PRN nasal 08/08/22 08/08/22 History gel ([place] Saline nasal gel) dryness 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 Atrial fibrillation On Coumadin - rate controlled per cardio CAD (coronary artery disease) S/p 5 vessel CABG Chronic systolic (congestive) heart failure Improved volume status and dyspnea with initiation of diuretic per 09/2020 cardio records Cranial nerve palsy CVA (cerebral vascular accident) Per records dating back to 2014, patient denies Depression GERD (gastroesophageal reflux disease) HTN (hypertension) Hyperlipidemia Intraventricular conduction delay Chronic per records Ischemic cardiomyopathy Mild decline in LVEF per 09/2020 ECHO (EF 25-30%) Surgical History Aortic valve replaced (during CABG- 2002) History of cholecystectomy History of hip surgery Right hip nailin07/03/20: Grade view 2, MAC#3, ETT 7.5 at [facility] S/P CABG x 5 2002 Family History Unknown No problems noted. Father , 77 Myocardial infarction Brother Diabetes Social History Smoking Status: Never smoker Tobacco Type: Smokeless Tobacco (Dip or Chew) Second Hand Exposure: No; Hx Alcohol Use: No Hx Substance Use: No Preferred Language: Central African Communication Ability: Effective Manager Poker Required: No Beliefs That Will Affect Care: None marital status: / Current Living Situation: Residential Current Living Situation Comment: in Personal Care at [place] at [facility] How many Children do You have: 2 Feels Safe at Home: Yes Assistive Devices: Glasses and Walker Review of Systems Review of Systems: All systems reviewed & are unremarkable except as noted in HPI & below Physical Exam Constitutional: WD/WN, vitals as above Eyes: EOM intact bilaterally; no conjunctival abnormality ENMT: external ear and nose normal, oropharynx normal Neck: trachea midline, no thyromegaly normal visual inspection Respiratory: normal respiratory effort, lungs clear to auscultation no respiratory distress Cardiovascular: RRR, no murmur, no edema Gastrointestinal (Abdomen): Inspection/Auscultation: abdomen normal to inspection; abdomen not distended Musculoskeletal: no cyanosis or clubbing, extremities motor strength 5/5 Skin: no rashes, warm and dry Large swelling on right abdomen with central area of purulence Neurologic: moves all extremities and awake Psychiatric: Orientation: alert, oriented to person and cooperative Results & Data Results & Data ([facility]) Vital Signs (Past 12 Hours) Vital Signs Temp Pulse Pulse Resp BP BP Pulse Ox 08/08/22 17:11 74 18 133/70 98 08/08/22 14:36 36.7 C 79 18 147/77 H 96 O2 Del Method 08/08/22 17:11 08/08/22 14:36 Room Air Code Status & VTE Plan VTE Prophylaxis Plan VTE Prophylaxis will be ordered: Yes PG Care Time/CCT Total # of Minutes Spent Total Time Spent with Patient: Total time spent is greater than 50% in coordination of care (as documented) at patient's floor/unit and/or counseling patient: Coding Level of Care Code 52502 Initial Inpt Care Lvl 3 Diagnoses Abdominal wall anomaly Q79.59 Leukocytosis D72.829 Aortic valve disease I35.9 Acetabulum fracture, left S32.435A Encounter type: initial encounter Fracture alignment: nondisplaced Fracture type: closed Sublocation of acetabulum: anterior column Ischemic cardiomyopathy I25.5 CAD (coronary artery disease) I25.10 HTN (hypertension) I10 Atrial fibrillation I48.91 Atrial fibrillation type: unspecified (1) Atrial fibrillation Atrial fibrillation type: unspecified Qualified Code(s): I48.91 - Unspecified atrial fibrillation (2) Acetabulum fracture, left Encounter type: initial encounter Fracture alignment: nondisplaced Fracture type: closed Sublocation of acetabulum: anterior column Qualified Code(s): S32.435A - Nondisplaced fracture of anterior column [iliopubic] of left acetabulum, initial encounter for closed fracture
[2022-08-08] MEDS ORDERED: PHYTONADIONE 5 MG in DEXTROSE 5% 50 ML IV ONE (19:37)
[2022-08-08] MEDS ORDERED: ACETAMINOPHEN 325 MG TAB PO PRN (22:14)
[2022-08-08] MEDS ORDERED: ONDANSETRON INJ 2 MG/ML 2 ML VIAL IV PRN (22:14)
--- NOTE | 2022-08-08 22:17 | Surgery Consultation ---
Date of Consultation August 08, 2022 Assessment & Plan (1) Abdominal wall abscess: Right abdominal was subcutaneous mass consistent with hematoma/abscess. Plan is for evacuation of hematoma tomorrow with Dr. Case. This was discussed with the patient. Will obtain cultures intraoperatively. Patient has been made NPO after midnight, and is currently getting INR down to acceptable surgical range per cardiology/Dr. Pruitt. All questions answered, and case reviewed with Dr. Case. (2) Atrial fibrillation: (3) Anticoagulant long-term use: History of Present Illness Attending Physician: Anthony is an 87 yr old male, with history of permanent A. fib, coronary artery disease status post 5 vessel CABG and mechanical aortic valve, and cardiomyopathy who presents with right abdominal wall fluid collection. He first presented to the ED on 05/11/22 for mass of his right lower abdomen. CT consistent with abdominal wall hematoma which by CT measured approximately 10 cm, read as a complex lesion/collection identified in the right lateral abdominal wall musculature with overlying soft tissue stranding. The location and appearance favors an intramuscular hematoma.He was seen by Dr. Ya, who felt the patient was stable and surgery was not indicated at the time. Hematoma has been followed with serial imaging. CT on 07/23 revealed the collection had slightly increased in size, measuring approximately 10.6 x 5.9 cm. On 07/23 the patient was also seen for a fall, resulting in nondisplaced fracture of left acetabulum. This did not require surgical intervention. He is a resident at the [facility], and has remained stable, but was brought back to the ED today for seeping of the right lower abdominal wall mass. Repeat CT today demonstrates "Right abdominal wall loculated enhancing fluid collection is stable to minimally decreased from prior exam. No extension into the peritoneal cavity is seen." The patient reports no pain of the abdomen and minimal drainage. He is on warfarin for his aortic valve, current INR was 3.5 on presentation today. This is being reversed with Vitamin K, then will bridge with Lovenox per cardiology. He did receive a dose of Zosyn in the ED, will await cultures from drainage before additional antibiotics are started. WBC is elevated to 16.44. Allergies Allergy/AdvReac Type Severity Reaction Status Date / Time Sulfa (Sulfonamide AdvReac Intermediate Unknown Verified 07/24/22 01:29 Antibiotics) Home Medications Medication Instructions Recorded Confirmed Type fluticasone propionate 50 2 spray intranasal QAM 05/11/22 08/08/22 History mcg/actuation nasal spray,suspension (Flonase Allergy Relief) gabapentin 100 mg capsule 200 mg PO BID 05/11/22 08/08/22 History melatonin 3 mg tablet 6 mg PO HS 05/11/22 08/08/22 History metoprolol succinate 25 mg 25 mg PO DAILY 05/11/22 08/08/22 History tablet,extended release 24 hr rosuvastatin 20 mg tablet 20 mg PO QAM 05/11/22 08/08/22 History sertraline 50 mg tablet 50 mg PO QAM 05/11/22 08/08/22 History torsemide 20 mg tablet 20 mg PO Q OTHER DAY 05/11/22 08/08/22 History vitamin B complex 1 tab PO DAILY 05/11/22 08/08/22 History warfarin 5 mg tablet 5 mg PO 3XWK 05/11/22 08/08/22 History docusate sodium 100 mg tablet 100 mg PO AMPM 07/24/22 08/08/22 History polyethylene glycol 3350 17 gram 17 g PO QAM 07/24/22 08/08/22 History oral powder packet warfarin 7.5 mg tablet 7.5 mg PO 4XWK 07/24/22 08/08/22 History acetaminophen 500 mg tablet 500 mg PO Q4 PRN Pain 08/08/22 08/08/22 History amoxicillin 500 mg capsule 2,000 mg PO ONCE PRN 1 hour prior 08/08/22 08/08/22 History to dental appt carboxymethylcellulose sodium 0.5 2 drp ophthalmic (eye) QID PRN Dry 08/08/22 08/08/22 History % eye drops (Refresh Tears) Eyes diphenhydramine HCl 25 mg tablet 25 mg PO Q6 PRN Itching 08/08/22 08/08/22 History (Benadryl Allergy) food supplemt, lactose-reduced 1 ea PO DAILY 08/08/22 08/08/22 History saliva stimulant comb. no.3 2 spray mucous membrane .Q 2 HOURS 08/08/22 08/08/22 History (Biotene Moisturizing Mouth PRN Dry Mouth mucosal spray) sodium chloride-aloe vera nasal 1 applic topical QID PRN nasal 08/08/22 08/08/22 History gel ([place] Saline nasal gel) dryness Patient History Medical History Aortic valve disease 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 Atrial fibrillation On Coumadin - rate controlled per cardio CAD (coronary artery disease) S/p 5 vessel CABG Chronic systolic (congestive) heart failure Improved volume status and dyspnea with initiation of diuretic per 09/2020 cardio records Cranial nerve palsy CVA (cerebral vascular accident) Per records dating back to 2014, patient denies Depression GERD (gastroesophageal reflux disease) HTN (hypertension) Hyperlipidemia Intraventricular conduction delay Chronic per records Ischemic cardiomyopathy Mild decline in LVEF per 09/2020 ECHO (EF 25-30%) Surgical History Aortic valve replaced (during CABG- 2002) History of cholecystectomy History of hip surgery Right hip nailin07/03/20: Grade view 2, MAC#3, ETT 7.5 at [facility] S/P CABG x 5 2002 Family History Unknown No problems noted. Father , 77 Myocardial infarction Brother Diabetes Social History Smoking Status: Former smoker Tobacco Type: Smokeless Tobacco (Dip or Chew) Second Hand Exposure: No; Hx Alcohol Use: No Hx Substance Use: No Preferred Language: Bolivian Communication Ability: Effective Customer Success Associate Required: No Beliefs That Will Affect Care: None marital status: / Current Living Situation: Senior Living Current Living Situation Comment: in Personal Care at [place] at [facility] How many Children do You have: 2 Feels Safe at Home: Yes Safety Concerns: Feels Safe At This Time Assistive Devices: Denture - Upper Review of Systems Review of Systems: All systems reviewed & are unremarkable except as noted in HPI & below Physical Exam Physical Exam: Temp Pulse Resp BP Pulse Ox O2 Del Method 36.7 C 74 17 124/87 93 08/08/22 14:36 08/08/22 20:50 08/08/22 20:50 08/08/22 20:50 08/08/22 20:50 08/08/22 20:50 Constitutional: WD/WN, vitals as above Eyes: PERRL, conjunctivae normal, anicteric sclerae Neck: trachea midline, no thyromegaly Respiratory: normal respiratory effort, lungs clear to auscultation Cardiovascular: Rate/Rhythm: regular rate and regular rhythm Heart Sounds: + click Gastrointestinal (Abdomen): normal bowel sounds, soft, nontender, no hepatosplenomegaly Skin: large subcutaneous mass of the right right lower, lateral abdomen with scant serous drainage, no open wound but small superficial area of epidermal breakdown at midpoint of mass. erythema of the subcutaneous mass, but not the surrounding soft tissue. mildly tender to palaption Psychiatric: A+Ox3, euthymic affect Results & Data ([facility]) Vital Signs (Past 12 Hours) Vital Signs Temp Pulse Pulse Resp BP BP Pulse Ox 08/08/22 20:50 74 17 124/87 93 08/08/22 18:34 66 18 127/72 96 08/08/22 17:11 74 18 133/70 98 08/08/22 14:36 36.7 C 79 18 147/77 H 96 O2 Del Method 08/08/22 20:50 Room Air 08/08/22 18:34 08/08/22 17:11 08/08/22 14:36 Room Air PG Care Time/CCT Total # of Minutes Spent Total Time Spent with Patient: Total time spent is greater than 50% in coordination of care (as documented) at patient's floor/unit and/or counseling patient: Coding Level of Care Code 50570 Office/OBS Consult Lvl 4 Diagnoses Abdominal wall abscess L02.211 Atrial fibrillation I48.91 Anticoagulant long-term use Z79.01
[2022-08-08] MEDS: DOCUSATE SODIUM 100 MG CAP PO SCH (22:28)
[2022-08-08] MEDS: MELATONIN 3 MG TAB PO SCH (22:28)
[2022-08-08] MEDS: GABAPENTIN 100 MG CAP PO SCH (23:05)
--- NOTE | 2022-08-09 06:43 | Ultrasound Report ---
US abdomen limited HISTORY: 87 years-old Male Area over hematoma for possible aspiration site acute pain and swelling o f the right abdominal wall COMPARISON: CT abdomen and pelvis 08/08/2022, 07/23/2022, 06/29/2022, 05/11/2022 TECHNIQUE: Multiple real-time sonographic images of the right lower quadrant abdominal wall were obta ined assessing grayscale appearance and color flow FINDINGS: Within the right lower quadrant abdominal wall subcutaneous tissues and musculature there is redemons tration of a complex lesion. This demonstrates mixed echogenicity with areas of peripheral flow measu ring up to 13.0 x 8.1 x 5.0 cm. This is similar in size to the previous studies. IMPRESSION: Complex mass/collection within the right lower lateral abdominal wall which has been pres ent dating back to the 05/11/2022 study suspicious for an underlying neoplasm. ACT 112: Negative or not required by law. The above report was generated using voice recognition software. It may contain grammatical, syntax o r spelling errors. Electronically signed by: Kenn Patel M.D. 08/09/2022 6:40 AM
[2022-08-09 08:15] LABS: Hematocrit (blood only) 33.1 % (40.1-51.0); Hemoglobin 10.4 g/dl (14.0-18.0); Mean Corpuscular Hemoglobin 24.9 pg (25.0-34.0); Mean Corpuscular Hgb Conc 31.4 g/dL (32.0-36.0); Mean Corpuscular Volume 79.4 fL (80.0-100.0); Mean Platelet Volume 9.7 fL (9.4-12.4); Platelet Count 366 K/uL (130-400); RDW Coefficient of Variation 16.2 % (11.5-14.5); RDW Standard Deviation 46.6 fL (36.4-46.3); Red Blood Count 4.17 M/uL (4.63-6.08); White Blood Count 14.08 K/ul (4.8-10.8)
[2022-08-09 08:26] LABS: INR 1.3 (0.9-1.1); Prothrombin Time 13.4 Seconds (9.0-12.0)
--- NOTE | 2022-08-09 08:32 | Cardiology Consultation ---
Date of Consultation August 09, 2022 Assessment & Plan (1) Abdominal wall anomaly: (2) Aortic valve disease: (3) CAD (coronary artery disease): (4) Ischemic cardiomyopathy: (5) Atrial fibrillation: (6) HTN, goal below 140/80: Plan Medically complex 87-year-old male currently under evaluation of an ongoing abdominal wall abscess. 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 Given vitamin K, 10 mg, yesterday in preparation for surgical evaluation of abdominal wall abscess. INR this morning 1.3. Patient carries a history of coronary artery disease status post CABG x5 with ischemic cardiomyopathy. Most recent LVEF of 35 to 39% per echo 07/13/2022. This was done at [facility]. Prosthetic aortic valve velocities were within normal range for this prosthesis. No significant regurgitation. Diuretics currently on hold, normally maintains on torsemide 20 mg every other day. Patient with known permanent atrial fibrillation with a idioventricular chronic conduction system delay. Blood pressure and heart rate well controlled this admission. Tele stable. -Continue metoprolol 25 mg daily. -Given history of mechanical AV replacement and permanent atrial fib will have to cautiously bring INR back within goal of 2.5-3.5. Once patient is hemodynamically stable will plan on starting heparin gtt. -Okay to hold torsemide while NPO- monitor volume status while inpatient. Daily standing weights, 2g sodium diet. Monitor electrolytes, potassium goal of 4.0 and mag goal of 2.0- replete as needed. Case discussed with Dr. Garcia- will follow. Supervising Physician Co-Signing Physician Notes I reviewed the medical record and examined the patient. I discussed the case with Ms. Yi and agree with the plan as outlined. History of Present Illness Reason for Consultation: Aortic valve disease status post mechanical aortic valve replacement with a history of rheumatic fever. Requesting Physician: [facility] Attending Physician: Gama Desir MD History of Present Illness Medically complex 87-year-old male. Initially presented to ED due to ongoing abdominal wall abscess, initially noted this past April 2022. Past medical history as stated below. Inpatient INR 3.5. Surgical intervention felt to be warranted, general surgery consulted. Plan for evacuation of hematoma with cultures by Dr. Case today, 08/09/2022. Dr. Pruitt, hospice community liaison provider, was contacted last evening who recommended administering vitamin K, 2.5 mg IV and starting UF heparin bridge when INR is <2.0. Patient was given 10 mg of vitamin K around 2000pm. Repeat INR this morning (08/09) was 1.3 He carries a history of CABG x5 in 2002-previously on aspirin. Patient suffered a fall on 07/09/2022 resulting in intraventricular hemorrhage of the temporal horn of the left lateral ventricle. Patient was admitted to [facility] and neuros urgery was consulted-aspirin was discontinued. Patient did receive vitamin K at this time and was eventually transitioned back to Coumadin prior to discharge. He also suffered a T10 compression fracture and the abdominal wall hematoma was noted at the time. Diuretics currently on hold due to euvolemia and n.p.o. status. Normally maintains on torsemide 20 mg every other day. Labs 08/09: WBC 14.08, hemoglobin 10.4, platelets 366, BMP pending. Abdominal ultrasound 08/08: Complex mass/collection within the right lower lateral abdominal wall which has been present dating back to the 05/11/2022 study suspicious for an underlying neoplasm. Abdomen/pelvis CT 08/08: Re-demonstration of rim-enhancing loculated fluid collection in the right abdominal wall which is stable to mildly decreased in size from prior exam and definitely decreased from 05/11/2022. Findings are favored to represent an abscess. 08/09: Tele: AFIB 50-70s I&O: +171 mL Weight: 74kg >> 77.6 kg (08/09) Upon entrance into the room patient resting comfortably in bed without acute concern. No chest pain, sob, palpitations, dizziness, or syncope. Patient eager to have his procedure done. PAST MEDICAL HISTORY: 1.Coronary artery disease status post CABG x5. 2.History of rheumatic aortic valve disease, status post mechanical aortic valve replacement, on chronic Coumadin therapy. INR goal between 2.5-3.5 3.Permanent atrial fibrillation, on Coumadin 4.Ischemic cardiomyopathy, EF 48%, reduced to 25-30% 09/2020- declined ischemic workup at that time. 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 6.Hypertension. 7.Hyperlipidemia 8.Chronic intraventricular conduction delay. Allergies Allergy/AdvReac Type Severity Reaction Status Date / Time Sulfa (Sulfonamide AdvReac Intermediate Unknown Verified 07/24/22 01:29 Antibiotics) Home Medications Medication Instructions Recorded Confirmed Type fluticasone propionate 50 2 spray intranasal QAM 05/11/22 08/08/22 History mcg/actuation nasal spray,suspension (Flonase Allergy Relief) gabapentin 100 mg capsule 200 mg PO BID 05/11/22 08/08/22 History melatonin 3 mg tablet 6 mg PO HS 05/11/22 08/08/22 History metoprolol succinate 25 mg 25 mg PO DAILY 05/11/22 08/08/22 History tablet,extended release 24 hr rosuvastatin 20 mg tablet 20 mg PO QAM 05/11/22 08/08/22 History sertraline 50 mg tablet 50 mg PO QAM 05/11/22 08/08/22 History torsemide 20 mg tablet 20 mg PO Q OTHER DAY 05/11/22 08/08/22 History vitamin B complex 1 tab PO DAILY 05/11/22 08/08/22 History warfarin 5 mg tablet 5 mg PO 3XWK 05/11/22 08/08/22 History docusate sodium 100 mg tablet 100 mg PO AMPM 07/24/22 08/08/22 History polyethylene glycol 3350 17 gram 17 g PO QAM 07/24/22 08/08/22 History oral powder packet warfarin 7.5 mg tablet 7.5 mg PO 4XWK 07/24/22 08/08/22 History acetaminophen 500 mg tablet 500 mg PO Q4 PRN Pain 08/08/22 08/08/22 History amoxicillin 500 mg capsule 2,000 mg PO ONCE PRN 1 hour prior 08/08/22 08/08/22 History to dental appt carboxymethylcellulose sodium 0.5 2 drp ophthalmic (eye) QID PRN Dry 08/08/22 08/08/22 History % eye drops (Refresh Tears) Eyes diphenhydramine HCl 25 mg tablet 25 mg PO Q6 PRN Itching 08/08/22 08/08/22 History (Benadryl Allergy) food supplemt, lactose-reduced 1 ea PO DAILY 08/08/22 08/08/22 History saliva stimulant comb. no.3 2 spray mucous membrane .Q 2 HOURS 08/08/22 08/08/22 History (Biotene Moisturizing Mouth PRN Dry Mouth mucosal spray) sodium chloride-aloe vera nasal 1 applic topical QID PRN nasal 08/08/22 08/08/22 History gel ([place] Saline nasal gel) dryness Patient History Medical History Aortic valve disease 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 Atrial fibrillation On Coumadin - rate controlled per cardio CAD (coronary artery disease) S/p 5 vessel CABG Chronic systolic (congestive) heart failure Improved volume status and dyspnea with initiation of diuretic per 09/2020 cardio records Cranial nerve palsy CVA (cerebral vascular accident) Per records dating back to 2014, patient denies Depression GERD (gastroesophageal reflux disease) HTN (hypertension) Hyperlipidemia Intraventricular conduction delay Chronic per records Ischemic cardiomyopathy Mild decline in LVEF per 09/2020 ECHO (EF 25-30%) Surgical History Aortic valve replaced (during CABG- 2002) History of cholecystectomy History of hip surgery Right hip nailin07/03/20: Grade view 2, MAC#3, ETT 7.5 at [facility] S/P CABG x 5 2002 Family History Unknown No problems noted. Father , 77 Myocardial infarction Brother Diabetes Social History Smoking Status: Former smoker Tobacco Type: Smokeless Tobacco (Dip or Chew) Second Hand Exposure: No; Hx Alcohol Use: No Hx Substance Use: No Preferred Language: Korean Communication Ability: Effective Heel Cutter Required: No Beliefs That Will Affect Care: None marital status: / Current Living Situation: [facility] Current Living Situation Comment: in Personal Care at [place] at [facility] How many Children do You have: 2 Feels Safe at Home: Yes Safety Concerns: Feels Safe At This Time Assistive Devices: Denture - Upper Review of Systems Review of Systems: All systems reviewed & are unremarkable except as noted in HPI & below Physical Exam Constitutional: WD/WN, vitals as above no acute distress Neck: normal visual inspection Respiratory: normal respiratory effort, lungs clear to auscultation Cardiovascular: Rate/Rhythm: regular rate and + irregularly irregular Heart Sounds: normal S1, normal S2 and + murmur (crisp mechanical valve closure) Vessels: no JVD Gastrointestinal (Abdomen): Percussion/Palpation: abdomen soft RLQ tenderness Musculoskeletal: no cyanosis or clubbing, extremities motor strength 5/5 Skin: no rashes, warm and dry Psychiatric: A+Ox3, euthymic affect Results & Data ([facility]) Vital Signs (Past 12 Hours) Vital Signs Temp Pulse Pulse Pulse Resp BP BP 08/09/22 07:59 54 L 08/09/22 04:00 36.4 C L 68 20 130/66 08/09/22 00:07 94 H 08/08/22 23:27 36.6 C 67 20 113/72 08/08/22 23:26 66 08/08/22 22:34 36.7 C 67 16 131/74 08/08/22 20:50 74 17 124/87 Pulse Ox O2 Del Method 08/09/22 07:59 08/09/22 04:00 98 Room Air 08/09/22 00:07 08/08/22 23:27 96 Room Air 08/08/22 23:26 08/08/22 22:34 99 Room Air 08/08/22 20:50 93 Room Air Laboratory Results Cardiac Enzymes 08/08/22 Range/Units Unknown AST 23 (13-39) U/L Coagulation 08/08/22 08/09/22 Range/Units Unknown 07:54 PT 34.8 H 13.4 H (9.0-12.0) Seconds APTT 39.9 H (21.0-31.0) Seconds CBC 08/08/22 08/09/22 Range/Units Unknown 07:54 WBC 16.44 H 14.08 H (4.8-10.8) K/ul RBC 4.73 4.17 L (4.63-6.08) M/uL Hgb 11.8 L 10.4 L (14.0-18.0) g/dl Hct 38.4 L 33.1 L (40.1-51.0) % Plt Count 410 H 366 (130-400) K/uL Neut # (Auto) 14.51 H (1.4-6.5) K/uL Lymph # (Auto) 0.41 L (1.2-3.4) K/uL Menard # (Auto) 1.15 H (0.24-0.82) K/uL Eos # (Auto) 0.27 (0-0.50) K/uL Baso # (Auto) 0.03 (0-0.2) K/uL Comprehensive Metabolic Panel 08/08/22 08/09/22 Range/Units Unknown 07:54 Sodium 137 136 (136-145) mmol/L Potassium 4.9 4.0 (3.5-5.1) mmol/L Chloride 99 100 (98-107) mmol/L Carbon Dioxide 31 31 (21-32) mmol/L BUN 18 16 (6-23) mg/dl Creatinine 0.60 0.65 (0.6-1.4) mg/dl Glucose 123 H 99 (70-99(Fasting)) mg/dl Calcium 9.3 8.9 (8.5-10.1) mg/dl AST 23 (13-39) U/L ALT 20 (7-52) U/L Alkaline Phosphatase 229 H (34-104) U/L Total Protein 7.4 (6.0-8.3) gm/dl Albumin 3.7 (3.4-5.0) gm/dl Intake and Output 08/08/22 08/09/22 08/09/22 22:59 06:59 14:59 Intake Total 171 / 171 Balance 171 / 171 Intake: IV 171 / 171 Phytonadione 10 mg In Dextrose 51 / 51 5% 50 ml @ 102 mls/hr IV ONE ONE Rx#:[id number] Piperacillin/Tazobactam 4.5 gm 120 / 120 In 120 ml @ 240 mls/hr IV NOW ONE Rx#:[id number] Other: Other Intake Source NPO Weight 74 kg 77.6 kg 77.6 kg Weight Measurement Method Built in [facility] Built in [facility] Patient Weight 08/10/22 06:59 Weight 77.6 kg Diagnostic Findings Echo 07/13/2022 at [facility] study. The qualitative LV ejection fraction is 35-39% (moderately reduced). The LV wall thickness is mildly increased (concentric). There is a large sized apical, septal, anteroseptal, and inferior wall motion abnormality with hypokinesis to akinesis of the segments. There is diffuse right ventricular hypokinesis. A mechanical prosthesis is present. Visualization is limited. Transprosthetic velocities and gradients are not elevated, suggesting prosthetic stenosis is absent. No prosthetic regurgitation is present. If there is a concern for thombosis, consider fluoroscopy to assess leaflet opening. Mild mitral regurgitation is present. Moderate tricuspid regurgitation is present. There is mild pulmonary regurgitation. The aortic root is mildly enlarged. The proximal ascending thoracic aorta is moderately enlarged. Moderate pulmonary hypertension is present. The estimated pulmonary artery systolic pressure is 57mm Hg. Echo 07/10/2022 at [facility] The examination is limited quality but adequate for evaluation of the referral indication. The qualitative LV ejection fraction is 40-44% (mildly reduced). There is a large sized apical, anteroseptal, and anterior wall motion abnormality with akinesis of the segments. The right ventricular cavity is moderately dilated. The right ventricular systolic function is moderately reduced There is an aortic valve mechanical prosthesis present. Aortic valve prosthesis stenosis is absent. Significant aortic valve prosthesis regurgitation is absent. The proximal ascending thoracic aorta is moderately enlarged. The aortic arch is mildly dilated. Moderate pulmonary hypertension is present. Echo 09/28/2020 with [facility] outpatient cardiology The examination is adequate to evaluate the referral indication. There is thinning and hypokinesis to akinesis the inferoseptal and anteroseptal rodney. There is apical akinesis. Moderate to severe left ventricular systolic dysfunction is present. The calculated left ventricular ejection fraction by utilizing the biplane method of discs= 36%, however the ejection fraction appears worse than this qualitatively in the range of 25 -30%. The left atrium is severely enlarged. There is an aortic valve mechanical prosthesis present. Mild prosthetic regurgitation is present. The aortic valve prosthesis systolic gradients are normal for this type prosthesis. Severe secondary mitral regurgitation is present. Moderate tricuspid regurgitation is present. Mild pulmonary hypertension is present. The estimated pulmonary artery systolic pressure is 44mm Hg. The aortic root is mildly dilated, 4.1 cm. The proximal acending aorta is moderately dilated, 4.8 cm.
[2022-08-09] MEDS: GABAPENTIN 100 MG CAP PO SCH ×2 (08:41→20:05)
[2022-08-09] MEDS: DOCUSATE SODIUM 100 MG CAP PO SCH ×2 (08:41→20:06)
[2022-08-09] MEDS: SERTRALINE HCL 50 MG TABLET PO SCH (08:42)
[2022-08-09] MEDS: METOPROLOL SUCC 25MG EXT REL TAB PO SCH (08:42)
[2022-08-09] MEDS: ROSUVASTATIN CALCIUM 20 MG TAB PO SCH (08:42)
[2022-08-09] MEDS: POLYETHYLENE (MIRALAX) 17 GM PACK PO SCH (08:42)
[2022-08-09 08:46] LABS: BUN Creatinine Ratio 24.6 (10-20); Calcium 8.9 mg/dl (8.5-10.1); Creatinine Clr Calc Pharmacy 86.9 ml/min; Est GFR (African American) 102.1 ml/min; Est GFR (Non-African American) 88.1 ml/min; Magnesium 2.2 mg/dl (1.7-2.4)
--- NOTE | 2022-08-09 10:05 | Anesthesiology Consultation ---
Date of Service August 09, 2022 Assessment & Plan Chart Review Chart Review: Acceptable Risk for Surgery and Patient NOT seen in Pre Admission Testing Consults Requested none History Surgery Operation Date: 08/09/22 09:40 Proposed Procedures p Incision and Drainage Abdominal Hematoma - Shaji Case DO, FACS Height/Weight Height: 5 ft 11 in Weight: 77.6 kg Allergies Allergy/AdvReac Type Severity Reaction Status Date / Time Sulfa (Sulfonamide AdvReac Intermediate Unknown Verified 07/24/22 01:29 Antibiotics) Medications Home Medications Medication Instructions Recorded Confirmed Last Taken fluticasone propionate 50 2 spray intranasal QAM 05/11/22 08/08/22 08/08/22 08:00 mcg/actuation nasal spray,suspension (Flonase Allergy Relief) gabapentin 100 mg capsule 200 mg PO BID 05/11/22 08/08/22 08/08/22 09:00 melatonin 3 mg tablet 6 mg PO HS 05/11/22 08/08/22 08/07/22 metoprolol succinate 25 mg 25 mg PO DAILY 05/11/22 08/08/22 08/08/22 08:00 tablet,extended release 24 hr rosuvastatin 20 mg tablet 20 mg PO QAM 05/11/22 08/08/22 08/08/22 08:00 sertraline 50 mg tablet 50 mg PO QAM 05/11/22 08/08/22 08/08/22 08:00 torsemide 20 mg tablet 20 mg PO Q OTHER DAY 05/11/22 08/08/22 08/08/22 08:00 vitamin B complex 1 tab PO DAILY 05/11/22 08/08/22 08/08/22 08:00 warfarin 5 mg tablet 5 mg PO 3XWK 05/11/22 08/08/22 08/06/22 docusate sodium 100 mg tablet 100 mg PO AMPM 07/24/22 08/08/22 08/08/22 am polyethylene glycol 3350 17 gram 17 g PO QAM 07/24/22 08/08/22 08/08/22 oral powder packet warfarin 7.5 mg tablet 7.5 mg PO 4XWK 07/24/22 08/08/22 08/07/22 acetaminophen 500 mg tablet 500 mg PO Q4 PRN Pain 08/08/22 08/08/22 08/08/22 16:00 amoxicillin 500 mg capsule 2,000 mg PO ONCE PRN 1 hour prior 08/08/22 08/08/22 Unknown to dental appt carboxymethylcellulose sodium 0.5 2 drp ophthalmic (eye) QID PRN Dry 08/08/22 08/08/22 Unknown % eye drops (Refresh Tears) Eyes diphenhydramine HCl 25 mg tablet 25 mg PO Q6 PRN Itching 08/08/22 08/08/22 Unknown (Benadryl Allergy) food supplemt, lactose-reduced 1 ea PO DAILY 08/08/22 08/08/22 08/08/22 saliva stimulant comb. no.3 2 spray mucous membrane .Q 2 HOURS 08/08/22 08/08/22 Unknown (Biotene Moisturizing Mouth PRN Dry Mouth mucosal spray) sodium chloride-aloe vera nasal 1 applic topical QID PRN nasal 08/08/22 08/08/22 Unknown gel ([place] Saline nasal gel) dryness Active Medications Generic Name Dose Route Start Last Admin Trade Name Freq PRN Reason Stop Dose Admin Docusate Sodium 100 mg 08/08/22 22:14 08/09/22 08:41 Docusate Sodium 100 Mg Cap PO 09/07/22 22:13 100 mg BID PATTIE Administration Gabapentin 200 mg 08/08/22 22:14 08/09/22 08:41 Gabapentin 100 Mg Cap PO 09/07/22 22:13 200 mg BID PATTIE Administration Melatonin 6 mg 08/08/22 22:14 08/08/22 22:28 Melatonin 3 Mg Tab PO 09/07/22 22:13 6 mg HS PATTIE Administration Metoprolol Succinate 25 mg 08/09/22 09:00 08/09/22 08:42 Metoprolol Succ 25mg Ext Rel Tab PO 09/08/22 08:59 Not Given DAILY PATTIE Polyethylene Glycol 17 gm 08/09/22 09:00 08/09/22 08:42 Polyethylene (Miralax) 17 Gm Pack PO 09/08/22 08:59 Not Given QAM PATTIE Rosuvastatin Calcium 20 mg 08/09/22 09:00 08/09/22 08:42 Rosuvastatin Calcium 20 Mg Tab PO 09/08/22 08:59 20 mg QAM PATTIE Administration Sertraline HCl 50 mg 08/09/22 09:00 08/09/22 08:42 Sertraline Hcl 50 Mg Tablet PO 09/08/22 08:59 50 mg QAM PATTIE Administration Past Medical History Medical History Aortic valve disease 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 Atrial fibrillation On Coumadin - rate controlled per cardio CAD (coronary artery disease) S/p 5 vessel CABG Chronic systolic (congestive) heart failure Improved volume status and dyspnea with initiation of diuretic per 09/2020 cardio records Cranial nerve palsy CVA (cerebral vascular accident) Per records dating back to 2014, patient denies Depression GERD (gastroesophageal reflux disease) HTN (hypertension) Hyperlipidemia Intraventricular conduction delay Chronic per records Ischemic cardiomyopathy Mild decline in LVEF per 09/2020 ECHO (EF 25-30%) Past Family History Family History Unknown No problems noted. Father , 77 Myocardial infarction Brother Diabetes Past Surgical History Surgical History Aortic valve replaced (during CABG- 2002) History of cholecystectomy History of hip surgery Right hip nailin07/03/20: Grade view 2, MAC#3, ETT 7.5 at [facility] S/P CABG x 5 2002 Social History Smoking Status: Former smoker Hx Alcohol Use: No Alcohol type: beer and wine alcohol intake frequency: holidays/special occasions only Hx Substance Use: No substance use type: does not use Physical Exam Vital Signs Last Vital Signs Temp 97.9 F 08/09/22 08:57 Pulse 68 08/09/22 08:57 Resp 18 08/09/22 08:57 BP 124/79 08/09/22 08:57 Pulse Ox 97 08/09/22 08:57 O2 Del Method 08/09/22 08:57 Testing Laboratory Results 08/09/22 07:54 08/09/22 07:54 PT 13.4 Seconds (9.0-12.0) H 08/09/22 07:54 INR 1.3 (0.9-1.1) H 08/09/22 07:54 APTT 39.9 Seconds (21.0-31.0) H 08/08/22 Unknown 08/08/22 Unknown Gram Stain - Final Abdomen, Right Lower Quadrant Electrocardiogram Date: 07/23/22 Findings: + AFIB @ and + LBBB Echocardiogram Date: 09/28/20 EF: 25-30 LV Function: dysfunctional RWMA: + akinetic and + hypokinetic Valvular Disease: + MR
[2022-08-09] MEDS ORDERED: BUPIVACAINE/EPINEPHRINE 0.5% MPF 1:200,000 30 ML VIAL ONE (10:21)
[2022-08-09] MEDS ORDERED: LIDOCAINE 2% MPF LOCAL 5 ML VIAL INFIL ONE (10:29)
[2022-08-09] MEDS ORDERED: ONDANSETRON INJ 2 MG/ML 2 ML VIAL ONE (10:29)
[2022-08-09] MEDS ORDERED: fentaNYL citrate 100 MCG/2 ML VIAL ONE (10:29)
[2022-08-09] MEDS ORDERED: PROPOFOL IV EMULSION 10 MG/ML 20 ML VIAL IV ONE ×2 (10:29→11:43)
--- NOTE | 2022-08-09 10:35 | Surgery Progress Note ---
Date of Service August 09, 2022 Assessment & Plan (1) Abdominal wall abscess: Plan: Patient here with concern for infected hematoma on R flank Labs shower WBC 14, Hbg 10.4, INR: 1.3 Swelling to R flank area noted, mildly tender, some mild serous/purulent fluid noted on bandage. skin breakdown noted (dimed sized) Will proceed with taking patient to the OR today for I&D of presumed infected abdominal hematoma Admission and Anticipated Discharge Date Admission Date: August 08, 2022 Supervising Physician Co-Signing Physician Notes Patient seen examined, labs image reviewed, agree with above. 87-year-old male with history of right flank fluid collection that was concerning for hematoma versus mass versus abscess. He started having some drainage from the area. On exam he is afebrile stable vitals. His right abdominal wall/flank has a large fluid collection under the skin with no overlying erythema or induration. There is a 1 cm area of open wound where it appears to be necessitating through. WBC elevated. CT scan personally viewed and interpreted by myself appears to have multiloculated fluid collection in the right abdominal wall superficial to the muscle, concerning for abscess versus infected hematoma versus possible tumor. He will taken to the OR for incision and drainage and possible biopsy Plan for incision and drainage of abdominal wall abscess, possible biopsy The risks of the procedure were discussed to include but not limited to bleeding, infection, recurrence, need for future emergency surgery, demonstrating structures, and the risk of anesthesia His INR was reversed overnight and is currently 1.3 We will send cultures from the OR, medicine should prescribe antibiotics Subjective Patient doing well. No significant drainage from his side overnight. Reports tenderness in the area to palpation. Physical Exam Physical Exam: awake/alert, no distress Respiratory: normal respiratory effort Gastrointestinal (Abdomen): Percussion/Palpation: + abdomen tender (tenderness to right side of abdomen, + fullness on R side of abd ) and abdomen soft there is a central area of skin breakdown in R side flank mass, some serous/purulent fluid on bandage. mild tenderness to palpation with surrounding erythema Results & Data ([facility]) Vital Signs (Past 12 Hours) Vital Signs Temp Pulse Pulse Pulse Resp BP Pulse Ox 08/09/22 10:20 36.6 C 58 L 20 129/60 97 08/09/22 08:57 36.6 C 68 18 124/79 97 08/09/22 07:59 54 L 12/22/22 04:00 36.4 C L 68 20 130/66 98 08/09/22 00:07 94 H 08/08/22 23:27 36.6 C 67 20 113/72 96 08/08/22 23:26 66 08/08/22 22:34 36.7 C 67 16 131/74 99 O2 Del Method 08/09/22 10:20 Room Air 08/09/22 08:57 Room Air 08/09/22 07:59 08/09/22 04:00 Room Air 08/09/22 00:07 08/08/22 23:27 Room Air 08/08/22 23:26 08/08/22 22:34 Room Air PG Care Time/CCT Total # of Minutes Spent Total Time Spent with Patient: Total time spent is greater than 50% in coordination of care (as documented) at patient's floor/unit and/or counseling patient: Coding Level of Care Code 02920 Subseq Hosp Care Lvl 1 Diagnoses Abdominal wall abscess L02.211
[2022-08-09] MEDS ORDERED: ceFAZolin 2000MG 2,000 MG/15 ML SYR IV ONE (11:07)
[2022-08-09] MEDS ORDERED: ceFAZolin 2,000 MG/15 ML IV PUSH IV ONE (11:08)
[2022-08-09] MEDS ORDERED: ePHEDrine sulfate 50 MG/ML SYR ONE (11:30)
--- NOTE | 2022-08-09 12:13 | Operative Report ---
PG Post Operative Report Pre & Post Diagnosis Operation Date: 08/09/22 09:40 Preop diagnosis: Infected hematoma versus mass Postop diagnosis: Infected hematoma versus mass I identified the patient and participated in the time-out.: Yes Procedure Operation Date: 08/09/22 09:40 Incision and drainage abdominal fluid collection, biopsy Surgeon Shaji Case DO, FACS Senior Engineering Tech Lorene Vanessa Estimated Blood Loss 20 Findings Consistent with Post-Op Diagnosis Skin wound excised with elliptical incision, incision extended anteriorly. Serous fluid drained, sent for culture. Skin biopsy and tissue sent for pathology. A small portion of cyst wall sent for frozen section. Specimens Cultures of abdominal wall fluid Abdominal wall mass biopsy Anesthesia Type MAC Complications none Disposition Accompanied Patient To Recovery: No Disposition: Recovery Room Indications 87-year-old male with several month history of suspected hematoma of his right abdominal wall/flank. It has been increasingly uncomfortable for him and somewhat painful. Most recent CT scan suggested possible abscess, though decreased in size. After discussion of the patient for his options, he elected for incision and drainage with biopsy. The risks of the procedure were discussed, all questions were answered, and the patient agreed to proceed with surgery as planned. Description of Procedure The patient was properly identified, consented, and taken to the operating room where he was placed in the supine position. Sedation with monitored anesthesia care was induced. He was rolled onto his left side exposing the right abdominal wall. SCDs and a safety belt were placed. Preoperative antibiotics were administered. The patient's abdominal wall and flank was prepped and draped in the standard sterile fashion. Surgical timeout was performed and all parties were in agreement that this was the correct patient and procedure to be performed and we continued as planned. Local anesthetic was injected along the skin incision. A transversely oriented elliptical incision was made to excise the wound mass and deepened down through the subcutaneous tissue with electrocautery. Cultures were sent. Portions of the wall of the cyst versus mass were sent for pathology along with the skin. The fluid appeared mostly serous in nature. A portion of the wall of the cyst was sent for frozen section. The wound was irrigated and hemostasis was confirmed. The wound was packed with sterile gauze. Fluffed gauze and an ABD were placed over the wound. The patient was awakened in the operating room and taken to the PACU where he recovered without apparent incident. All sponge, instrument and needle counts were correct at the conclusion of the procedure. The patient tolerated the procedure well. Physician's wet process assistant head miller was present and scrubbed for the entirety of the case. She was critical positioning the patient, prepping and draping, retraction and exposure, drainage of the fluid collection, packing of the wound, and placement the dressing. I attest to the content of the Intraoperative Record and any orders documented therein. Any exceptions are noted below.
--- NOTE | 2022-08-09 12:33 | Anesthesiology Progress Note ---
Date of Service August 09, 2022 Anesthesia Post Procedure Vital Signs Vital Signs: Temp Pulse Pulse Pulse Resp BP BP 08/09/22 12:30 36.6 C 85 20 08/09/22 12:20 77 23 08/09/22 12:14 36.3 C L 76 19 08/09/22 10:20 36.6 C 58 L 20 129/60 08/09/22 08:57 36.6 C 68 18 124/79 08/09/22 07:59 54 L 08/09/22 04:00 36.4 C L 68 20 130/66 08/09/22 00:07 94 H 08/08/22 23:27 36.6 C 67 20 113/72 08/08/22 23:26 66 08/08/22 22:34 36.7 C 67 16 131/74 08/08/22 20:50 74 17 124/87 08/08/22 18:34 66 18 127/72 08/08/22 17:11 74 18 133/70 08/08/22 14:36 36.7 C 79 18 147/77 H BP Pulse Ox O2 Del Method O2 Flow Rate 08/09/22 12:30 109/67 95 Room Air 08/09/22 12:20 107/68 99 Oxymask 5 08/09/22 12:14 110/51 L 100 Oxymask 5 08/09/22 10:20 97 Room Air 08/09/22 08:57 97 Room Air 08/09/22 07:59 08/09/22 04:00 98 Room Air 08/09/22 00:07 08/08/22 23:27 96 Room Air 08/08/22 23:26 08/08/22 22:34 99 Room Air 08/08/22 20:50 93 Room Air 08/08/22 18:34 96 08/08/22 17:11 98 08/08/22 14:36 96 Room Air Transfer of Care Handoff Completed per policy Notes Mental Status: alert / awake / arousable and participated in evaluation Patient Amnestic to Procedure: Yes Nausea / Vomiting: adequately controlled Pain: adequately controlled Airway Patency, RR, SpO2: stable & adequate BP & HR: stable & adequate Hydration State: stable & adequate Anesthetic Complications: no major complications apparent and Pt Satisfied with anesthetic care
[2022-08-09] MEDS ORDERED: oxyCODONE HCL IR 5 MG TAB (IMMEDIATE RELEASE) PO PRN (13:24)
[2022-08-09] MEDS ORDERED: Heparin IV Adult Wt-Based Standard *NO* Bolus Protocol IV SCH (14:30)
--- NOTE | 2022-08-09 14:33 | Communication Note ---
Date of Service: August 09, 2022 Spoke with general surgery, Lorene Vanessa- okay to restart Heparin gtt NO BOLUS at this time. Orders placed. -CLEO Nuñez
[2022-08-09 15:33] LABS: Basophils # (auto) 0.05 K/uL (0-0.2); Basophils % (auto) 0.3 %; Eosinophils # (auto) 0.33 K/uL (0-0.50); Eosinophils % (auto) 2.1 %; Hematocrit (blood only) 33.7 % (40.1-51.0); Hemoglobin 10.5 g/dl (14.0-18.0); Immature Granulocytes # (auto) 0.06 K/uL (0.00-0.02); Immature Granulocytes % (auto) 0.4 %; Lymphocytes # (auto) 0.59 K/uL (1.2-3.4); Lymphocytes % (auto) 3.7 %; Mean Corpuscular Hemoglobin 25.2 pg (25.0-34.0); Mean Corpuscular Hgb Conc 31.2 g/dL (32.0-36.0); Mean Platelet Volume 9.5 fL (9.4-12.4); Monocytes # (auto) 0.89 K/uL (0.24-0.82); Monocytes % (auto) 5.6 %; Neutrophils # (auto) 13.85 K/uL (1.4-6.5); Neutrophils % (auto) 87.9 %; Platelet Count 375 K/uL (130-400); RDW Coefficient of Variation 16.2 % (11.5-14.5); RDW Standard Deviation 47.8 fL (36.4-46.3); Red Blood Count 4.16 M/uL (4.63-6.08); White Blood Count 15.77 K/ul (4.8-10.8)
[2022-08-09 15:51] LABS: INR 1.2 (0.9-1.1); Partial Thromboplastin Ratio 1.1; Partial Thromboplastin Time 30.5 Seconds (21.0-31.0); Prothrombin Time 12.4 Seconds (9.0-12.0)
[2022-08-09] MEDS: HEPARIN SODIUM/DEXTROSE 25,000 UNITS/500 ML BAG IV SCH (16:16)
--- NOTE | 2022-08-09 18:08 | Hospitalist Progress Note ---
Date of Service August 09, 2022 Assessment & Plan (1) Abdominal wall anomaly: Plan: Status post I&D on 08/09 : infected hematoma versus mass, preliminary microbiology report shows staph, will start the patient on Vanco Initially presented with a presumed abdominal wall hematoma in 04/2022. This was monitored and has repeated CTs monitoring it. Various times has been called a hematoma, a mass, and now an abscess, so what is actually going on is unclear. Patient has had a persistent, mild leukocytosis, but otherwise denies systemic symptoms to me. us Complex mass/collection within the right lower lateral abdominal wall which has been present dating back to the 05/11/2022 study suspicious for an underlying neoplasm - Reverse INR as below per cardiology (2) Leukocytosis: Plan: Secondary to above (3) Aortic valve disease: Plan: Hx of mechanical aortic valve for rheumatic fever. - INR goal is 2.5 - 3.5. Discussed with Dr. Pruitt: * Reversed with vitamin K * INR less than 2, proceed with heparin * (4) Acetabulum fracture, left: Plan: Noted last admission on 07/23/2022. Non-operative management per orthopedics. - Toe-touch weight-bearing on left leg for 6 weeks (End around mid-August) (5) Ischemic cardiomyopathy: Plan: EF was 25-30% in 09/2020 in the [facility] office. Declined ischemic work-up at that time. - Continue home metoprolol succinate, statin - Monitor volume status -> Holding torsemide for now, but can restart as needed - Given complex cardiology hx, [facility] cardiology consulted. (6) CAD (coronary artery disease): Plan: S/p 5vCABG in 2002. Was on ASA previously, but appears to have been stopped early this month by his care facility. - As above (7) HTN (hypertension): Plan: BP is 125/70 in the ER. - Plan as above. (8) Atrial fibrillation: Plan: Permanent. - Rate control with Toprol - Anticoagulation with warfarin/heparin gtt as above DNR/DNI - Per patient in the ER. He reports he has had a good life and is "ready." Declines CPR, intubation, other interventions, acknowledging he would pass away. Admission and Anticipated Discharge Date Admission Date: August 08, 2022 Subjective Status post I&D today Physical Exam Constitutional: WD/WN, vitals as above Eyes: EOM intact bilaterally; no conjunctival abnormality ENMT: external ear and nose normal, oropharynx normal Neck: trachea midline, no thyromegaly normal visual inspection Respiratory: normal respiratory effort, lungs clear to auscultation no respiratory distress Cardiovascular: RRR, no murmur, no edema Gastrointestinal (Abdomen): Inspection/Auscultation: abdomen normal to inspection; abdomen not distended Musculoskeletal: no cyanosis or clubbing, extremities motor strength 5/5 Skin: no rashes, warm and dry Neurologic: moves all extremities and awake Psychiatric: Orientation: alert, oriented to person and cooperative Results & Data Results & Data ([facility]) Vital Signs (Past 12 Hours) Vital Signs Temp Pulse Pulse Pulse Resp BP BP 08/09/22 15:36 76 08/09/22 15:19 36.7 C 74 18 150/72 H 08/09/22 14:22 36.5 C 76 18 127/65 08/09/22 13:28 36.5 C 73 16 107/66 08/09/22 12:58 36.5 C 65 16 112/73 08/09/22 12:30 36.6 C 85 20 109/67 08/09/22 12:20 77 23 107/68 08/09/22 12:14 36.3 C L 76 19 110/51 L 08/09/22 10:20 36.6 C 58 L 20 129/60 08/09/22 08:57 36.6 C 68 18 124/79 08/09/22 07:59 54 L Pulse Ox O2 Del Method O2 Flow Rate 08/09/22 15:36 08/09/22 15:19 95 Room Air 08/09/22 14:22 98 Room Air 08/09/22 13:28 96 Room Air 08/09/22 12:58 97 Room Air 08/09/22 12:30 95 Room Air 08/09/22 12:20 99 Oxymask 5 08/09/22 12:14 100 Oxymask 5 08/09/22 10:20 97 Room Air 08/09/22 08:57 97 Room Air 08/09/22 07:59 PG Care Time/CCT Total # of Minutes Spent Total Time Spent with Patient: Total time spent is greater than 50% in coordination of care (as documented) at patient's floor/unit and/or counseling patient: Coding Level of Care Code 78964 Subseq Hosp Care Lvl 3 Diagnoses Abdominal wall anomaly Q79.59 Leukocytosis D72.829 Leukocytosis type: unspecified Aortic valve disease I35.9 Acetabulum fracture, left S32.435A Encounter type: initial encounter Fracture alignment: nondisplaced Fracture type: closed Sublocation of acetabulum: anterior column Ischemic cardiomyopathy I25.5 CAD (coronary artery disease) I25.10 HTN (hypertension) I10 Atrial fibrillation I48.91 (1) Leukocytosis Leukocytosis type: unspecified Qualified Code(s): D72.829 - Elevated white blood cell count, unspecified (2) Acetabulum fracture, left Encounter type: initial encounter Fracture alignment: nondisplaced Fracture type: closed Sublocation of acetabulum: anterior column Qualified Code(s): S32.435A - Nondisplaced fracture of anterior column [iliopubic] of left acetabulum, initial encounter for closed fracture
[2022-08-09] MEDS ORDERED: VANCOMYCIN CONSULT ACTIVE PRN ×2 (18:11→18:12)
[2022-08-09] MEDS: VANCOMYCIN HCL 1,500 MG in SODIUM CHLORIDE 0.9% 500 ML IV ONE (19:12)
[2022-08-09] MEDS: MELATONIN 3 MG TAB PO SCH (20:06)
--- NOTE | 2022-08-09 20:09 | Pharmacy Report ---
Pharmacy PK ABX Note - Date of Service August 09, 2022 - Assessment and Plan Assessment 87 year old M receiving IV Vancomycin for treatment of skin and soft tissue infection. * Right lower quadrant abdominal cx is growing Staph species. * Afebrile. Renal fxn at baseline. Leukocytosis of 16k. Procalcitonin negative. Plan Vancomycin * Loading dose: 1500 mg IV x 1 * Maintenance dose: 1000 mg IV every 12 hours * Regimen is predicted to achieve target AUC/JEFF of 400-600 mg/L.hr * Random level ordered for: 08/11/22 Pharmacy will continue to follow and will adjust dose/frequency as necessary. Thank you. Pharmacy has transitioned to AUC monitoring for vancomycin. AUC/JEFF is the preferred PK/PD target and is associated with decreased risk of nephrotoxicity compared to traditional trough targets.
[2022-08-09] MEDS: MoRPHine SULFATE 2 MG/ML CARP IV PRN (22:28)
[2022-08-10] LABS: Partial Thromboplastin Time 53.7 Seconds (21.0-31.0)
[2022-08-10] MEDS ORDERED: VANCOMYCIN HCL 1,000 MG in SODIUM CHLORIDE 0.9% 250 ML IV SCH (07:00)
--- NOTE | 2022-08-10 07:37 | Cardiology Progress Note ---
Date of Service August 10, 2022 Assessment & Plan (1) Abdominal wall anomaly: (2) Aortic valve disease: (3) CAD (coronary artery disease): (4) Ischemic cardiomyopathy: (5) Atrial fibrillation: (6) HTN, goal below 140/80: Plan Medically complex 87-year-old male currently under evaluation of an ongoing abdominal wall abscess. Status postevacuation and culture with preliminary microbiology report indicating staph. Started on Vanco 08/09. Following reversal of INR with reversal of 10 mg of vitamin K INR lowered to 1.3 preop. Following procedure heparin drip without bolus was started at approximately 1430. 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 Patient carries a history of coronary artery disease status post CABG x5 with ischemic cardiomyopathy. Most recent LVEF of 35 to 39% per echo 07/13/2022. This [place] done [place] [facility] Has declined further ischemic work-up in the past. Prosthetic aortic valve velocities were within normal range for this prosthesis. No significant regurgitation. Patient with known permanent atrial fibrillation with a idioventricular chronic conduction system delay. Blood pressure and heart rate well controlled this admission. Tele stable. -Continue metoprolol 25 mg daily. -Given history of mechanical AV replacement and permanent atrial fib INR goal of 2.5-3.5. Continue heparin drip. Will give 10 mg of Coumadin today, repeat INR tomorrow am, adjust as needed. -Diuretics currently on hold, normally maintains on torsemide 20 mg every other day. Continue to monitor volume status with daily standing weights. 2g sodium diet. Weight currently stable- can consider restarting torsemide tomorrow. Monitor electrolytes, potassium goal of 4.0 and mag goal of 2.0- replete as needed. Case discussed with Dr. Garcia- will follow. Admission and Anticipated Discharge Date Admission Date: August 08, 2022 Supervising Physician Co-Signing Physician Notes The patient is currently comfortable and eating lunch. I reviewed the medical record and discussed the case with the nurse practitioner. Main issue here, is the restart of anticoagulation due to the patient's mechanical aortic valve. Otherwise he is doing well and we will continue to follow. 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 Initially presented to ED due to ongoing abdominal wall abscess, initially noted this past April 2022. 08/08: Abdominal ultrasound 08/08:Complex mass/collection within the right lower lateral abdominal wall which has been present dating back to the 05/11/2022 study suspicious for an underlying neoplasm. Abdomen/pelvis CT 08/08: Re-demonstration of rim-enhancing loculated fluid collection in the right abdominal wall which is stable to mildly decreased in size from prior exam and definitely decreased from 05/11/2022. Findings are favored to represent an abscess. INR reversed with 10 mg of vitamin K, INR lowered to 1.3 on 08/09. 08/09: Patient status post surgical evacuation and culturing of abscess. Patient tolerated procedure well. Preliminary microbiology results on culture showed staph. Patient was started on Vanco. Heparin drip started at 1430. INR goal between 2.5 and 3.5. 08/10: Labs: CBC and BMP stable. INR 1.2 Telemetry: AFIB 70s Weight: 78.6 kg >> 77 kg I&O: +746 mL Upon entrance into the room patient sitting up in the chair feeling well without complaint. RLQ incision bandaged, clean dry and intact. Denies chest pain, sob, palpitations, dizziness, or neurologic changes. Review of Systems Review of Systems: All systems reviewed & are unremarkable except as noted in HPI & below Physical Exam Constitutional: WD/WN, vitals as above no acute distress Neck: normal visual inspection Respiratory: normal respiratory effort, lungs clear to auscultation Cardiovascular: Rate/Rhythm: regular rate and + irregularly irregular Heart Sounds: normal S1, normal S2 and + murmur (crisp mechanical valve closure) Vessels: no JVD Chest (Breasts): Additional Comments: RLQ dressing clean dry and intact. Gastrointestinal (Abdomen): Percussion/Palpation: abdomen soft Musculoskeletal: no cyanosis or clubbing, extremities motor strength 5/5 Skin: no rashes, warm and dry Psychiatric: A+Ox3, euthymic affect Results & Data ([facility]) Vital Signs (Past 12 Hours) Vital Signs Temp Pulse Pulse Resp BP Pulse Ox O2 Del Method 08/10/22 04:01 36.7 C 74 18 113/66 97 Room Air 08/09/22 23:17 36.9 C 70 16 120/71 96 Room Air 08/09/22 22:10 71 08/09/22 20:23 36.7 C 67 18 108/68 95 Room Air Laboratory Results Coagulation 08/09/22 08/09/22 08/09/22 Range/Units 07:54 15:19 22:59 PT 13.4 H 12.4 H (9.0-12.0) Seconds APTT 30.5 53.7 H* (21.0-31.0) Seconds CBC 08/09/22 08/09/22 Range/Units 07:54 15:19 WBC 14.08 H 15.77 H (4.8-10.8) K/ul RBC 4.17 L 4.16 L (4.63-6.08) M/uL Hgb 10.4 L 10.5 L (14.0-18.0) g/dl Hct 33.1 L 33.7 L (40.1-51.0) % Plt Count 366 375 (130-400) K/uL Neut # (Auto) 13.85 H (1.4-6.5) K/uL Lymph # (Auto) 0.59 L (1.2-3.4) K/uL Petroleum # (Auto) 0.89 H (0.24-0.82) K/uL Eos # (Auto) 0.33 (0-0.50) K/uL Baso # (Auto) 0.05 (0-0.2) K/uL Comprehensive Metabolic Panel 08/09/22 Range/Units 07:54 Sodium 136 (136-145) mmol/L Potassium 4.0 (3.5-5.1) mmol/L Chloride 100 (98-107) mmol/L Carbon Dioxide 31 (21-32) mmol/L BUN 16 (6-23) mg/dl Creatinine 0.65 (0.6-1.4) mg/dl Glucose 99 (70-99(Fasting)) mg/dl Calcium 8.9 (8.5-10.1) mg/dl Intake and Output 08/09/22 08/10/22 08/10/22 22:59 06:59 14:59 Intake Total 72 / 795.55 423.55 / 795.55 Output Total 200 / 220 Balance 72 / 575.55 223.55 / 575.55 Intake: IV 72 / 395.55 323.55 / 395.55 Heparin Sodium/Dextrose 25,000 72 / 395.55 323.55 / 395.55 units In 500 ml @ 1,350 UNITS/ HR 27 mls/hr IV .[id number] [facility] Rx #:[id number] Oral 100 / 100 Output: Urine Amount (Catheter) 200 / 200 External 200 / 200 Other: # Unmeasured Voids 1 Weight 77 kg
[2022-08-10] MEDS ORDERED: Heparin IV Adult Wt-Based Standard *NO* Bolus Protocol IV SCH (07:50)
[2022-08-10] MEDS: GABAPENTIN 100 MG CAP PO SCH ×2 (08:15→21:27)
[2022-08-10] MEDS ORDERED: HEPARIN SODIUM/DEXTROSE 25,000 UNITS/500 ML BAG IV SCH (08:15)
[2022-08-10] MEDS: DOCUSATE SODIUM 100 MG CAP PO SCH ×2 (08:15→20:35)
[2022-08-10] MEDS: SERTRALINE HCL 50 MG TABLET PO SCH (08:16)
[2022-08-10] MEDS: POLYETHYLENE (MIRALAX) 17 GM PACK PO SCH (08:16)
[2022-08-10] MEDS: METOPROLOL SUCC 25MG EXT REL TAB PO SCH (08:16)
[2022-08-10] MEDS: ROSUVASTATIN CALCIUM 20 MG TAB PO SCH (08:16)
[2022-08-10] MEDS: HEPARIN SODIUM/DEXTROSE 25,000 UNITS/500 ML BAG IV SCH (09:50)
[2022-08-10 10:06] LABS: Hematocrit (blood only) 32.2 % (40.1-51.0); Hemoglobin 10.2 g/dl (14.0-18.0); Mean Corpuscular Hemoglobin 25.1 pg (25.0-34.0); Mean Corpuscular Hgb Conc 31.7 g/dL (32.0-36.0); Mean Corpuscular Volume 79.3 fL (80.0-100.0); Mean Platelet Volume 9.8 fL (9.4-12.4); Platelet Count 385 K/uL (130-400); RDW Coefficient of Variation 16.1 % (11.5-14.5); RDW Standard Deviation 46.3 fL (36.4-46.3); Red Blood Count 4.06 M/uL (4.63-6.08); White Blood Count 12.91 K/ul (4.8-10.8)
[2022-08-10 10:15] LABS: Partial Thromboplastin Ratio 1.5; Partial Thromboplastin Time 42.1 Seconds (21.0-31.0)
--- NOTE | 2022-08-10 11:33 | Surgery Progress Note ---
Date of Service August 10, 2022 Assessment & Plan (1) Abdominal wall abscess: Plan: POD #1 incision and drainage biopsy of abdominal wall abscess versus mass. Frozen section yesterday showed some spindle cells but looks more like an abscess wall rather than a tumor. We are present for the dressing change by wound care and there is no significant bleeding. Dressing change per wound care Okay to restart Coumadin, continue heparin drip Surgery will follow peripherally, Dr. Clemente following over the weekend Follow-up and pathology results Admission and Anticipated Discharge Date Admission Date: August 08, 2022 Subjective 87-year-old male POD #1 incision and drainage and biopsy of right abdominal wall abscess/mass. Overall doing well, minimal pain. Physical Exam Constitutional: WD/WN, vitals as above Skin: no rashes, warm and dry + wound (Dressing removed, wound examined, no significant bleeding) Results & Data ([facility]) Vital Signs (Past 12 Hours) Vital Signs Temp Pulse Resp BP Pulse Ox O2 Del Method 08/10/22 07:37 36.9 C 74 18 129/78 97 Room Air 08/10/22 04:01 36.7 C 74 18 113/66 97 Room Air PG Care Time/CCT Total # of Minutes Spent Total Time Spent with Patient: Total time spent is greater than 50% in coordination of care (as documented) at patient's floor/unit and/or counseling patient: Coding Level of Care Code None Diagnoses Abdominal wall abscess L02.211
[2022-08-10] MEDS: oxyCODONE HCL IR 5 MG TAB (IMMEDIATE RELEASE) PO PRN (12:01)
[2022-08-10 12:17] LABS: Creatinine Clr Calc Pharmacy 88.2 ml/min; Est GFR (African American) 102.8 ml/min; Est GFR (Non-African American) 88.7 ml/min; Potassium 4.2 mmol/L (3.5-5.1)
[2022-08-10] MEDS: cefTRIAXone SODIUM 1,000 MG in DEXTROSE 5% AD-VAN 50 ML IV SCH (14:53)
[2022-08-10] MEDS: WARFARIN SOD 10 MG TAB PO SCH (15:43)
--- NOTE | 2022-08-10 17:59 | Hospitalist Progress Note ---
Date of Service August 10, 2022 Assessment & Plan (1) Abdominal wall anomaly: Plan: Status post I&D on 08/09 : infected hematoma versus mass, preliminary microbiology report shows MRSA, gram-negative yandel Stop vancomycin Started on Rocephin Discussed with surgery can be discharged on oral antibiotic Initially presented with a presumed abdominal wall hematoma in 04/2022. This was monitored and has repeated CTs monitoring it. Various times has been called a h ematoma, a mass, and now an abscess, so what is actually going on is unclear. Patient has had a persistent, mild leukocytosis, but otherwise denies systemic symptoms to me. (2) Leukocytosis: Plan: Secondary to above trending down (3) Aortic valve disease: Plan: Hx of mechanical aortic valve for rheumatic fever. - INR goal is 2.5 - 3.5. Discussed with Dr. Pruitt: -Continue heparin drip Resume warfarin 10 mg daily PT/INR tomorrow (4) Acetabulum fracture, left: Plan: Noted last admission on 07/23/2022. Non-operative management per orthopedics. - Toe-touch weight-bearing on left leg for 6 weeks (End around mid-August) (5) Ischemic cardiomyopathy: Plan: EF was 25-30% in 09/2020 in the [facility] office. Declined ischemic work-up at that time. - Continue home metoprolol succinate, statin - Monitor volume status -> Holding torsemide for now, but can restart as needed - Given complex cardiology hx, [facility] cardiology consulted. (6) CAD (coronary artery disease): Plan: S/p 5vCABG in 2002. Was on ASA previously, but appears to have been stopped early this month by his care facility. - As above (7) HTN (hypertension): Plan: Fairly controlled (8) Atrial fibrillation: Plan: Permanent. - Rate control with Toprol - Anticoagulation with warfarin/heparin gtt as above DNR/DNI - Per patient in the ER. He reports he has had a good life and is "ready." Declines CPR, intubation, other interventions, acknowledging he would pass away. Admission and Anticipated Discharge Date Admission Date: August 08, 2022 Subjective The patient is doing fine, wound culture grew MSSA and gram-negative yandel, stop vancomycin, started on Rocephin, possibly discharge tomorrow on oral antibiotic Physical Exam Physical Exam: General: Mild oriented x3 well groomed Neck: Supple there is no tenderness Chest: Clear to auscultation no wheezing Cardiovascular: Regular rate and rhythm no murmur Abdomen: Soft bowel sounds active Extremities: No tenderness Results & Data Results & Data ([facility]) Vital Signs (Past 12 Hours) Vital Signs Temp Pulse Pulse Resp BP Pulse Ox O2 Del Method 08/10/22 14:09 101 H 08/10/22 15:28 36.5 C 58 L 18 132/74 95 Room Air 08/10/22 06:31 61 08/10/22 12:09 36.8 C 63 18 118/79 94 Room Air 08/10/22 07:37 36.9 C 74 18 129/78 97 Room Air PG Care Time/CCT Total # of Minutes Spent Total Time Spent with Patient: Total time spent is greater than 50% in coordination of care (as documented) at patient's floor/unit and/or counseling patient: Coding Level of Care Code 67518 Subseq Hosp Care Lvl 2 Diagnoses Abdominal wall anomaly Q79.59 Leukocytosis D72.829 Leukocytosis type: unspecified Aortic valve disease I35.9 Acetabulum fracture, left S32.435A Encounter type: initial encounter Fracture alignment: nondisplaced Fracture type: closed Sublocation of acetabulum: anterior column Ischemic cardiomyopathy I25.5 CAD (coronary artery disease) I25.10 HTN (hypertension) I10 Atrial fibrillation I48.91 (1) Leukocytosis Leukocytosis type: unspecified Qualified Code(s): D72.829 - Elevated white blood cell count, unspecified (2) Acetabulum fracture, left Encounter type: initial encounter Fracture alignment: nondisplaced Fracture type: closed Sublocation of acetabulum: anterior column Qualified Code(s): S32.435A - Nondisplaced fracture of anterior column [iliopubic] of left acetabulum, initial encounter for closed fracture
[2022-08-10 18:06] LABS: Partial Thromboplastin Ratio 1.9
[2022-08-10 18:08] LABS: Partial Thromboplastin Time 52.7 Seconds (21.0-31.0)
[2022-08-10] MEDS: MELATONIN 3 MG TAB PO SCH (21:28)
[2022-08-11] MEDS: HEPARIN SODIUM/DEXTROSE 25,000 UNITS/500 ML BAG IV SCH ×2 (03:11→10:39)
[2022-08-11] MEDS ORDERED: VANCOMYCIN LEVEL ONE (06:30)
[2022-08-11 07:04] LABS: Basophils # (auto) 0.04 K/uL (0-0.2); Basophils % (auto) 0.4 %; Eosinophils # (auto) 0.38 K/uL (0-0.50); Eosinophils % (auto) 3.9 %; Hematocrit (blood only) 28.2 % (40.1-51.0); Hemoglobin 8.8 g/dl (14.0-18.0); Immature Granulocytes # (auto) 0.04 K/uL (0.00-0.02); Immature Granulocytes % (auto) 0.4 %; Lymphocytes # (auto) 0.41 K/uL (1.2-3.4); Lymphocytes % (auto) 4.2 %; Mean Corpuscular Hemoglobin 24.7 pg (25.0-34.0); Mean Corpuscular Hgb Conc 31.2 g/dL (32.0-36.0); Mean Corpuscular Volume 79.2 fL (80.0-100.0); Mean Platelet Volume 9.7 fL (9.4-12.4); Monocytes # (auto) 0.81 K/uL (0.24-0.82); Monocytes % (auto) 8.4 %; Neutrophils # (auto) 7.99 K/uL (1.4-6.5); Neutrophils % (auto) 82.7 %; Platelet Count 311 K/uL (130-400); RDW Standard Deviation 46.5 fL (36.4-46.3); Red Blood Count 3.56 M/uL (4.63-6.08); White Blood Count 9.67 K/ul (4.8-10.8)
[2022-08-11 07:21] LABS: INR 1.2 (0.9-1.1); Partial Thromboplastin Ratio 1.1; Partial Thromboplastin Time 31.6 Seconds (21.0-31.0)
[2022-08-11] MEDS: DOCUSATE SODIUM 100 MG CAP PO SCH ×2 (08:16→20:23)
[2022-08-11] MEDS: POLYETHYLENE (MIRALAX) 17 GM PACK PO SCH (08:16)
[2022-08-11] MEDS: GABAPENTIN 100 MG CAP PO SCH ×2 (08:16→20:24)
[2022-08-11] MEDS: SERTRALINE HCL 50 MG TABLET PO SCH (08:17)
[2022-08-11] MEDS: METOPROLOL SUCC 25MG EXT REL TAB PO SCH (08:17)
[2022-08-11] MEDS: ROSUVASTATIN CALCIUM 20 MG TAB PO SCH (08:17)
[2022-08-11] MEDS ORDERED: HEPARIN SOD (PORCINE) 1000 UNIT/ML IV ONE (10:15)
--- NOTE | 2022-08-11 12:36 | Cardiology Progress Note ---
Date of Service August 11, 2022 Assessment & Plan (1) Abdominal wall abscess: (2) Ischemic cardiomyopathy: (3) Aortic valve disease: Plan -Holding torsemide today -Post op incision and drainage of abdominal wall abscess on 08/09/22 with findings of e. coli on intraoperative cultures. -blood cultures negative thus far. -agree with IV Rocephin Would recommend ongoing heparin bridge, INR 1.2 today, goal 2.5-3.5, coumadin 10 mg dose #2 today, 08/11/22. Admission and Anticipated Discharge Date Admission Date: August 08, 2022 Subjective Patient seen in follow up. He is comfortable. Just finished his lunch. Telemetry reveals rate controlled AF in the 70s with LBBB. Review of Systems Review of Systems: All systems reviewed & are unremarkable except as noted in HPI & below Physical Exam Constitutional: WD/WN, vitals as above Respiratory: normal respiratory effort, lungs clear to auscultation Cardiovascular: Rate/Rhythm: + irregularly irregular Heart Sounds: no murmur Extremities: no edema Gastrointestinal (Abdomen): Abdominal site , dressed, dressing not removed Neurologic: PERRL, EOMI, accommodation nl, no face palsy, no dysarthria Results & Data ([facility]) Vital Signs (Past 12 Hours) Vital Signs Temp Pulse Resp BP Pulse Ox O2 Del Method 08/11/22 11:59 36.8 C 60 18 115/67 98 Room Air 08/11/22 08:15 36.6 C 66 146/69 H 96 Room Air 08/11/22 04:09 36.4 C L 61 16 109/61 94 Room Air Laboratory Results Coagulation 08/10/22 08/11/22 Range/Units 17:13 06:13 PT 13.0 H (9.0-12.0) Seconds APTT 52.7 H* 31.6 H (21.0-31.0) Seconds CBC 08/11/22 Range/Units 06:13 WBC 9.67 (4.8-10.8) K/ul RBC 3.56 L (4.63-6.08) M/uL Hgb 8.8 L (14.0-18.0) g/dl Hct 28.2 L (40.1-51.0) % Plt Count 311 (130-400) K/uL Neut # (Auto) 7.99 H (1.4-6.5) K/uL Lymph # (Auto) 0.41 L (1.2-3.4) K/uL [place] # (Auto) 0.81 (0.24-0.82) K/uL Eos # (Auto) 0.38 (0-0.50) K/uL Baso # (Auto) 0.04 (0-0.2) K/uL
[2022-08-11] MEDS: cefTRIAXone SODIUM 1,000 MG in DEXTROSE 5% AD-VAN 50 ML IV SCH (14:50)
[2022-08-11] MEDS: MoRPHine SULFATE 2 MG/ML CARP IV PRN (16:05)
[2022-08-11 16:27] LABS: Partial Thromboplastin Time 56.2 Seconds (21.0-31.0)
[2022-08-11] MEDS: WARFARIN SOD 10 MG TAB PO SCH (17:28)
[2022-08-11] MEDS: MELATONIN 3 MG TAB PO SCH (20:24)
[2022-08-12] MEDS: HEPARIN SODIUM/DEXTROSE 25,000 UNITS/500 ML BAG IV SCH ×3 (01:55→16:20)
[2022-08-12 07:10] LABS: Partial Thromboplastin Time 83.6 Seconds (21.0-31.0)
[2022-08-12] MEDS ORDERED: INFLUENZA VACCINE HIGH DOSE PF 65+ 0.7 ML SYR IM ONE (07:33)
[2022-08-12] MEDS: SERTRALINE HCL 50 MG TABLET PO SCH (09:45)
[2022-08-12] MEDS: METOPROLOL SUCC 25MG EXT REL TAB PO SCH (09:45)
[2022-08-12] MEDS: GABAPENTIN 100 MG CAP PO SCH ×2 (09:45→18:59)
[2022-08-12] MEDS: ROSUVASTATIN CALCIUM 20 MG TAB PO SCH (09:45)
[2022-08-12] MEDS: POLYETHYLENE (MIRALAX) 17 GM PACK PO SCH (10:00)
[2022-08-12] MEDS: DOCUSATE SODIUM 100 MG CAP PO SCH ×2 (10:00→18:59)
[2022-08-12 13:40] LABS: Partial Thromboplastin Ratio 2.7
[2022-08-12 13:52] LABS: Partial Thromboplastin Time 73.5 Seconds (21.0-31.0)
[2022-08-12] MEDS: oxyCODONE HCL IR 5 MG TAB (IMMEDIATE RELEASE) PO PRN (14:25)
--- NOTE | 2022-08-12 14:30 | Hospitalist Progress Note ---
Date of Service August 12, 2022 Assessment & Plan (1) Abdominal wall anomaly: Plan: Status post I&D on 08/09 : Pathology did not show any malignancy or mass, findings consistent with abscess, cultures positive for MSSA and E. coli pansensitive Rocephin was stopped on 08/12 started on Augmentin Patient is ready to be discharged pending placement . (2) Aortic valve disease: Plan: Hx of mechanical aortic valve for rheumatic fever. - INR goal is 2.5 - 3.5 -Warfarin 10 mg daily was resumed on 08/10 Current INR is still subtherapeutic on 08/10 INR was 1.2 -Stop heparin drip, start on full dose Lovenox (3) Acetabulum fracture, left: Plan: Noted last admission on 07/23/2022. Non-operative management per orthopedics. - Toe-touch weight-bearing on left leg for 6 weeks (End around mid-August) (4) Ischemic cardiomyopathy: Plan: EF was 25-30% in 09/[address] [facility] office. Declined ischemic work-up at that time. - Continue home metoprolol succinate, statin - Monitor volume status -> Holding torsemide for now, but can restart as needed - Given complex cardiology hx, [facility] cardiology consulted. (5) CAD (coronary artery disease): Plan: S/p 5vCABG in 2002. Was on ASA previously, but appears to have been stopped early this month by his care facility. - As above (6) HTN (hypertension): Plan: Fairly controlled (7) Atrial fibrillation: Plan: Permanent. - Rate control with Toprol - Anticoagulation with warfarin/Lovenox Admission and Anticipated Discharge Date Admission Date: August 08, 2022 Subjective Patient seen in follow up. He is comfortable. Just finished his lunch. Telemetry reveals rate controlled AF in the 70s with LBBB. Physical Exam Physical Exam: General: Mild oriented x3 well groomed Neck: Supple there is no tenderness Chest: Clear to auscultation no wheezing Cardiovascular: Regular rate and rhythm no murmur Abdomen: Soft bowel sounds active Extremities: No tenderness Constitutional: WD/WN, vitals as above Eyes: EOM intact bilaterally; no conjunctival abnormality ENMT: external ear and nose normal, oropharynx normal Neck: trachea midline, no thyromegaly normal visual inspection Respiratory: normal respiratory effort, lungs clear to auscultation no respiratory distress Cardiovascular: RRR, no murmur, no edema Gastrointestinal (Abdomen): Inspection/Auscultation: abdomen normal to inspection; abdomen not distended Musculoskeletal: no cyanosis or clubbing, extremities motor strength 5/5 Skin: no rashes, warm and dry Neurologic: moves all extremities and awake Psychiatric: Orientation: alert, oriented to person and cooperative Results & Data Results & Data ([facility]) Vital Signs (Past 12 Hours) Vital Signs Temp Pulse Resp BP BP Pulse Ox O2 Del Method 08/12/22 12:13 36.6 C 54 L 19 124/67 97 Room Air 08/12/22 08:31 36.7 C 63 18 154/78 H 94 Room Air 08/12/22 03:21 36.6 C 59 L 18 124/71 98 Room Air PG Care Time/CCT Total # of Minutes Spent Total Time Spent with Patient: Total time spent is greater than 50% in coordination of care (as documented) at patient's floor/unit and/or counseling patient: Coding Level of Care Code 91795 Subseq Hosp Care Lvl 3 Diagnoses Abdominal wall anomaly Q79.59 Aortic valve disease I35.9 Acetabulum fracture, left S32.435A Encounter type: initial encounter Fracture alignment: nondisplaced Fracture type: closed Sublocation of acetabulum: anterior column Ischemic cardiomyopathy I25.5 CAD (coronary artery disease) I25.10 HTN (hypertension) I10 Atrial fibrillation I48.91 (1) Acetabulum fracture, left Encounter type: initial encounter Fracture alignment: nondisplaced Fracture type: closed Sublocation of acetabulum: anterior column Qualified Code(s): S32.435A - Nondisplaced fracture of anterior column [iliopubic] of left acetabulum, initial encounter for closed fracture
[2022-08-12] MEDS ORDERED: ENOXAPARIN 1 MG/KG SQ SCH (14:45)
[2022-08-12] MEDS: WARFARIN SOD 10 MG TAB PO SCH (16:07)
[2022-08-12] MEDS: ENOXAPARIN 80 MG/0.8 ML SYR SQ SCH (16:12)
--- NOTE | 2022-08-12 17:17 | Cardiology Progress Note ---
Date of Service August 12, 2022 Assessment & Plan (1) Abdominal wall abscess: (2) Ischemic cardiomyopathy: (3) Aortic valve disease: Plan -Holding torsemide today -Post op incision and drainage of abdominal wall abscess on 08/09/22 with findings of e. coli on intraoperative cultures. -blood cultures negative thus far. -agree with IV Rocephin Would recommend ongoing heparin bridge, INR not drawn today, goal 2.5-3.5, coumadin 10 mg dose #2 today, 08/11/22. follow and replete lytes as necessary Continue to follow volume status clinically Admission and Anticipated Discharge Date Admission Date: August 08, 2022 Subjective Patient seen and examined. Chart reviewed. Telemetry reviewed. Currently resting comfortably. Review of Systems Review of Systems: All systems reviewed & are unremarkable except as noted in HPI & below Physical Exam Physical Exam: General: Awake, alert and oriented x 3. No acute distress. HEENT: Normocephalic, atraumatic. Pupils equal, round and reactive to light and accommodation. Extraocular muscles are intact. Anicteric sclera. Moist mucous membranes. Neck: No JVD. No bruit. Cardiovascular: irregularly irregular, unable to appreciate murmur, rub or gallop. Pulmonary: Clear to auscultation bilaterally. No rales, rhonchi, or wheezing. Abdomen: Bowel sounds x 4, soft. No rebound, guarding or tenderness. No organomegaly. Extremities: No clubbing, cyanosis or edema. +2 pedal pulses bilaterally. Skin: Warm and dry. Results & Data ([facility]) Vital Signs (Past 12 Hours) Vital Signs Temp Pulse Pulse Resp BP Pulse Ox O2 Del Method 08/12/22 14:08 54 L 08/12/22 06:26 58 L 08/12/22 16:19 36.9 C 55 L 18 137/72 95 Room Air 08/12/22 12:13 36.6 C 54 L 19 124/67 97 Room Air 08/12/22 08:31 36.7 C 63 18 154/78 H 94 Room Air
[2022-08-12] MEDS: AMOXICILLIN/CLAVULANATE 875 MG TAB PO SCH (17:40)
[2022-08-12] MEDS: MELATONIN 3 MG TAB PO SCH (20:35)
[2022-08-13] MEDS: ENOXAPARIN 80 MG/0.8 ML SYR SQ SCH ×2 (02:29→16:07)
[2022-08-13 06:42] LABS: Basophils # (auto) 0.03 K/uL (0-0.2); Basophils % (auto) 0.3 %; Eosinophils # (auto) 0.24 K/uL (0-0.50); Eosinophils % (auto) 2.4 %; Hematocrit (blood only) 28.7 % (40.1-51.0); Hemoglobin 9.1 g/dl (14.0-18.0); Immature Granulocytes # (auto) 0.06 K/uL (0.00-0.02); Immature Granulocytes % (auto) 0.6 %; Lymphocytes # (auto) 0.41 K/uL (1.2-3.4); Mean Corpuscular Hgb Conc 31.7 g/dL (32.0-36.0); Mean Corpuscular Volume 78.8 fL (80.0-100.0); Mean Platelet Volume 9.6 fL (9.4-12.4); Monocytes # (auto) 0.77 K/uL (0.24-0.82); Monocytes % (auto) 7.6 %; Neutrophils # (auto) 8.68 K/uL (1.4-6.5); Neutrophils % (auto) 85.1 %; Platelet Count 306 K/uL (130-400); RDW Coefficient of Variation 16.1 % (11.5-14.5); RDW Standard Deviation 45.9 fL (36.4-46.3); Red Blood Count 3.64 M/uL (4.63-6.08); White Blood Count 10.19 K/ul (4.8-10.8)
[2022-08-13 07:13] LABS: Partial Thromboplastin Ratio 1.7; Prothrombin Time 20.6 Seconds (9.0-12.0)
[2022-08-13 07:21] LABS: Partial Thromboplastin Time 48.1 Seconds (21.0-31.0)
[2022-08-13] MEDS: POLYETHYLENE (MIRALAX) 17 GM PACK PO SCH (07:50)
[2022-08-13] MEDS: GABAPENTIN 100 MG CAP PO SCH ×2 (07:50→18:53)
[2022-08-13] MEDS: DOCUSATE SODIUM 100 MG CAP PO SCH ×2 (07:50→18:54)
[2022-08-13] MEDS: SERTRALINE HCL 50 MG TABLET PO SCH (07:50)
[2022-08-13] MEDS: METOPROLOL SUCC 25MG EXT REL TAB PO SCH (07:50)
[2022-08-13] MEDS: AMOXICILLIN/CLAVULANATE 875 MG TAB PO SCH ×2 (07:50→16:08)
[2022-08-13] MEDS: ROSUVASTATIN CALCIUM 20 MG TAB PO SCH (07:50)
--- NOTE | 2022-08-13 12:45 | Cardiology Progress Note ---
Date of Service August 13, 2022 Assessment & Plan (1) Abdominal wall abscess: (2) Ischemic cardiomyopathy: (3) Aortic valve disease: Plan -She is consistent with his chronic history of rate controlled atrial fibrillation and left bundle branch block -Resume torsemide 20 mg every other day -Post op incision and drainage of abdominal wall abscess on 08/09/22 with findings of e. coli on intraoperative cultures. -blood cultures negative. -Patient transition to oral Augmentin. Would recommend ongoing Lovenox bridge. INR 2 today. Continue Coumadin 10 mg daily. Admission and Anticipated Discharge Date Admission Date: August 08, 2022 Subjective Patient seen in cardiology follow up. He was eating his noon time meal. He notes feeling well. Denies fevers, chills , or shortness of breath. Physical Exam Constitutional: WD/WN, vitals as above Respiratory: normal respiratory effort, lungs clear to auscultation Cardiovascular: Rate/Rhythm: + irregularly irregular Heart Sounds: no murmur Neurologic: PERRL, EOMI, accommodation nl, no face palsy, no dysarthria Results & Data ([facility]) Vital Signs (Past 12 Hours) Vital Signs Temp Pulse Pulse Resp BP BP Pulse Ox 08/13/22 11:17 36.8 C 62 20 125/76 96 08/13/22 08:30 08/13/22 08:04 37.5 C 67 20 147/83 H 95 08/13/22 04:16 51 L 08/13/22 02:28 36.9 C 51 L 18 116/67 95 O2 Del Method 08/13/22 11:17 Room Air 08/13/22 08:30 Room Air 08/13/22 08:04 Room Air 08/13/22 04:16 08/13/22 02:28 Room Air Laboratory Results Coagulation INR 08/13/22= 2 08/12/22 08/13/22 Range/Units 12:57 06:25 PT 20.6 H (9.0-12.0) Seconds APTT 73.5 H* 48.1 H* (21.0-31.0) Seconds CBC 08/13/22 Range/Units 06:25 WBC 10.19 (4.8-10.8) K/ul RBC 3.64 L (4.63-6.08) M/uL Hgb 9.1 L (14.0-18.0) g/dl Hct 28.7 L (40.1-51.0) % Plt Count 306 (130-400) K/uL Neut # (Auto) 8.68 H (1.4-6.5) K/uL Lymph # (Auto) 0.41 L (1.2-3.4) K/uL [place] # (Auto) 0.77 (0.24-0.82) K/uL Eos # (Auto) 0.24 (0-0.50) K/uL Baso # (Auto) 0.03 (0-0.2) K/uL Intake and Output 08/12/22 08/13/22 08/13/22 22:59 06:59 14:59 Intake Total 459.934 / 771.167 Output Total 100 / 675 275 / 675 Balance 359.934 / 96.167 -275 / 96.167 Intake: IV 64.934 / 276.167 Heparin Sodium/Dextrose 25,000 64.934 / 276.167 units In 500 ml @ 1,400 UNITS/ HR 28 mls/hr IV .[id number] [facility] Rx #:[id number] Oral 395 / 495 Output: Urine 100 / 675 275 / 675 Other: Weight 83.1 kg Weight Measurement Method Built in [facility]
[2022-08-13] MEDS: TORSEMIDE 10 MG TAB PO SCH (13:08)
[2022-08-13] MEDS ORDERED: WARFARIN SOD 5 MG TAB PO SCH (16:00)
--- NOTE | 2022-08-13 17:56 | Hospitalist Progress Note ---
Date of Service August 13, 2022 Assessment & Plan (1) Abdominal wall anomaly: Plan: Status post I&D on 08/09 : Pathology did not show any malignancy or mass, findings consistent with abscess, cultures positive for MSSA and E. coli pansensitive Rocephin was stopped on 08/12 started on Augmentin Patient is ready to be discharged pending placement . (2) Aortic valve disease: Plan: Hx of mechanical aortic valve for rheumatic fever. - INR goal is 2.5 - 3.5 -Warfarin 10 mg daily was resumed on 08/10 Current INR is still subtherapeutic on 08/10 INR was 1.2 -Stop heparin drip, start on full dose Lovenox (3) Acetabulum fracture, left: Plan: Noted last admission on 07/23/2022. Non-operative management per orthopedics. - Toe-touch weight-bearing on left leg for 6 weeks (End around mid-August) (4) Ischemic cardiomyopathy: Plan: EF was 25-30% in 09/2020 in the [facility] office. Declined ischemic work-up at that time. - Continue home metoprolol succinate, statin - Monitor volume status -> Holding torsemide for now, but can restart as needed - Given complex cardiology hx, [facility] cardiology consulted. (5) CAD (coronary artery disease): Plan: S/p 5vCABG in 2002. Was on ASA previously, but appears to have been stopped early this month by his care facility. - As above -Followed by cardiology (6) HTN (hypertension): Plan: Fairly controlled (7) Atrial fibrillation: Plan: Permanent. - Rate control with Toprol - Anticoagulation with warfarin/Lovenox Admission and Anticipated Discharge Date Admission Date: August 08, 2022 Subjective No acute issues, the wound is healing nicely, dressing change per wound care, pending placement Physical Exam Physical Exam: General: Mild oriented x3 well groomed Neck: Supple there is no tenderness Chest: Clear to auscultation no wheezing Cardiovascular: Regular rate and rhythm no murmur Abdomen: Soft bowel sounds active Extremities: No tenderness Constitutional: WD/WN, vitals as above Eyes: EOM intact bilaterally; no conjunctival abnormality ENMT: external ear and nose normal, oropharynx normal Neck: trachea midline, no thyromegaly normal visual inspection Respiratory: normal respiratory effort, lungs clear to auscultation no respiratory distress Cardiovascular: RRR, no murmur, no edema Gastrointestinal (Abdomen): Inspection/Auscultation: abdomen normal to inspection; abdomen not distended Musculoskeletal: no cyanosis or clubbing, extremities motor strength 5/5 Skin: no rashes, warm and dry Neurologic: moves all extremities and awake Psychiatric: Orientation: alert, oriented to person and cooperative Results & Data Results & Data ([facility]) Vital Signs (Past 12 Hours) Vital Signs Temp Pulse Resp BP BP Pulse Ox O2 Del Method 08/13/22 15:36 36.6 C 68 20 133/74 98 Room Air 08/13/22 11:17 36.8 C 62 20 125/76 96 Room Air 08/13/22 08:30 Room Air 08/13/22 08:04 37.5 C 67 20 147/83 H 95 Room Air PG Care Time/CCT Total # of Minutes Spent Total Time Spent with Patient: Total time spent is greater than 50% in coordination of care (as documented) at patient's floor/unit and/or counseling patient: Coding Level of Care Code 48282 Subseq Hosp Care Lvl 2 Diagnoses Abdominal wall anomaly Q79.59 Aortic valve disease I35.9 Acetabulum fracture, left S32.435A Encounter type: initial encounter Fracture alignment: nondisplaced Fracture type: closed Sublocation of acetabulum: anterior column Ischemic cardiomyopathy I25.5 CAD (coronary artery disease) I25.10 HTN (hypertension) I10 Atrial fibrillation I48.91 (1) Acetabulum fracture, left Encounter type: initial encounter Fracture alignment: nondisplaced Fracture type: closed Sublocation of acetabulum: anterior column Qualified Code(s): S32.435A - Nondisplaced fracture of anterior column [iliopubic] of left acetabulum, initial encounter for closed fracture
[2022-08-13] MEDS: MELATONIN 3 MG TAB PO SCH (18:53)
[2022-08-14] MEDS: ENOXAPARIN 80 MG/0.8 ML SYR SQ SCH ×2 (02:14→16:20)
[2022-08-14 07:49] LABS: BUN Creatinine Ratio 18.5 (10-20); Calcium 8.9 mg/dl (8.5-10.1); Creatinine Clr Calc Pharmacy 104.6 ml/min; Est GFR (African American) 110.2 ml/min; Est GFR (Non-African American) 95.1 ml/min; INR 2.3 (0.9-1.1); Potassium 4.1 mmol/L (3.5-5.1); Prothrombin Time 23.5 Seconds (9.0-12.0)
[2022-08-14] MEDS: AMOXICILLIN/CLAVULANATE 875 MG TAB PO SCH ×2 (08:25→17:19)
[2022-08-14] MEDS: ROSUVASTATIN CALCIUM 20 MG TAB PO SCH (08:25)
[2022-08-14] MEDS: GABAPENTIN 100 MG CAP PO SCH ×2 (08:25→20:59)
[2022-08-14] MEDS: SERTRALINE HCL 50 MG TABLET PO SCH (08:25)
[2022-08-14] MEDS: TORSEMIDE 10 MG TAB PO SCH (08:25)
[2022-08-14] MEDS: POLYETHYLENE (MIRALAX) 17 GM PACK PO SCH (08:26)
[2022-08-14] MEDS: DOCUSATE SODIUM 100 MG CAP PO SCH ×2 (08:26→20:59)
[2022-08-14] MEDS: METOPROLOL SUCC 25MG EXT REL TAB PO SCH (08:26)
[2022-08-14] MEDS ORDERED: WARFARIN SOD 7.5 MG TAB PO SCH (16:00)
--- NOTE | 2022-08-14 17:36 | Cardiology Progress Note ---
Date of Service August 14, 2022 Assessment & Plan (1) Abdominal wall abscess: (2) Ischemic cardiomyopathy: (3) Aortic valve disease: Plan torsemide 20 mg every other day (order corrected to reflect this, next dose due 08/16). -Post op incision and drainage of abdominal wall abscess on 08/09/22 with findings of e. coli on intraoperative cultures. -blood cultures negative. -Patient transition to oral Augmentin. Would recommend ongoing Lovenox bridge. INR 2.3 today, 08/14/2022, goal INR 2.5-3.5 given mechanical aortic valve. Agree with transition to his [employer] coumadin dose of 5 mg alternating with 7.5 mg daily. Coumadin manage by [facility] as [facility]. Repeat INR on 08/15. Admission and Anticipated Discharge Date Admission Date: August 08, 2022 Subjective Patient seen in cardiology follow-up. Feels well. No complaints. Physical Exam Constitutional: WD/WN, vitals as above Respiratory: normal respiratory effort, lungs clear to auscultation Cardiovascular: Rate/Rhythm: + irregularly irregular Heart Sounds: no murmur Extremities: no edema Neurologic: PERRL, EOMI, accommodation nl, no face palsy, no dysarthria Results & Data ([facility]) Vital Signs (Past 12 Hours) Vital Signs Temp Pulse Pulse Resp BP BP Pulse Ox 08/14/22 14:23 65 08/14/22 06:09 57 L 08/14/22 15:43 36.5 C 61 20 144/80 H 99 08/14/22 12:03 36.9 C 60 20 117/74 97 08/14/22 07:40 36.4 C L 61 20 125/61 96 O2 Del Method 08/14/22 14:23 08/14/22 06:09 08/14/22 15:43 Room Air 08/14/22 12:03 Room Air 08/14/22 07:40 Room Air
--- NOTE | 2022-08-14 19:25 | Hospitalist Progress Note ---
Date of Service August 14, 2022 Assessment & Plan (1) Abdominal wall anomaly: Plan: SStatus post I&D on 08/09 : Pathology did not show any malignancy or mass, findings consistent with abscess, cultures positive for MSSA and E. coli pansensitive Rocephin was stopped on 08/12 started on Augmentin Patient is ready to be discharged pending placement (2) Aortic valve disease: Plan: Plan: Hx of mechanical aortic valve for rheumatic fever. - INR goal is 2.5 - 3.5 -Warfarin 10 mg daily was resumed on 08/10 Current INR is still subtherapeutic (3) Acetabulum fracture, left: Plan: Plan: Noted last admission on 07/23/2022. Non-operative management per orthopedics. - Toe-touch weight-bearing on left leg for 6 weeks (End around mid-August) (4) Ischemic cardiomyopathy: Plan: EF was 25-30% in 09/2020 in the [facility] office. Declined ischemic work-up at that time. - Continue home metoprolol succinate, statin - Monitor volume status -> Holding torsemide for now, but can restart as needed - Given complex cardiology hx, [facility] cardiology consulted. (5) CAD (coronary artery disease): Plan: S/p 5vCABG in 2002. Was on ASA previously, but appears to have been stopped early this month by his care facility. - As above -Followed by cardiology (6) HTN (hypertension): (7) Atrial fibrillation: Plan: Permanent. - Rate control with Toprol - Anticoagulation with warfarin/Lovenox Plan Fairly controlled Admission and Anticipated Discharge Date Admission Date: August 08, 2022 Subjective Discussed with the showcase trimmer, apparently there was miscommunication between the prior showcase trimmer and current showcase trimmer, and the current showcase trimmer is not aware that the patient is ready to be discharged, waiting for insurance authorization Results & Data Results & Data ([facility]) Vital Signs (Past 12 Hours) Vital Signs Temp Pulse Pulse Resp BP BP Pulse Ox 08/14/22 14:23 65 08/14/22 15:43 36.5 C 61 20 144/80 H 99 08/14/22 12:03 36.9 C 60 20 117/74 97 08/14/22 07:40 36.4 C L 61 20 125/61 96 O2 Del Method 08/14/22 14:23 08/14/22 15:43 Room Air 08/14/22 12:03 Room Air 08/14/22 07:40 Room Air PG Care Time/CCT Total # of Minutes Spent Total Time Spent with Patient: Total time spent is greater than 50% in coordination of care (as documented) at patient's floor/unit and/or counseling patient: Coding Level of Care Code 15993 Subseq Hosp Care Lvl 2 Diagnoses Abdominal wall anomaly Q79.59 Aortic valve disease I35.9 Acetabulum fracture, left S32.435A Encounter type: initial encounter Fracture alignment: nondisplaced Fracture type: closed Sublocation of acetabulum: anterior column Ischemic cardiomyopathy I25.5 CAD (coronary artery disease) I25.10 HTN (hypertension) I10 Atrial fibrillation I48.91 (1) Acetabulum fracture, left Encounter type: initial encounter Fracture alignment: nondisplaced Fracture type: closed Sublocation of acetabulum: anterior column Qualified Code(s): S32.435A - Nondisplaced fracture of anterior column [iliopubic] of left acetabulum, initial encounter for closed fracture
[2022-08-14] MEDS: MELATONIN 3 MG TAB PO SCH (20:59)
[2022-08-15] MEDS: ENOXAPARIN 80 MG/0.8 ML SYR SQ SCH (02:57)
[2022-08-15 07:23] LABS: Basophils # (auto) 0.04 K/uL (0-0.2); Basophils % (auto) 0.4 %; Eosinophils # (auto) 0.26 K/uL (0-0.50); Eosinophils % (auto) 2.8 %; Hematocrit (blood only) 30.1 % (40.1-51.0); Hemoglobin 9.4 g/dl (14.0-18.0); Immature Granulocytes # (auto) 0.07 K/uL (0.00-0.02); Immature Granulocytes % (auto) 0.7 %; Lymphocytes # (auto) 0.53 K/uL (1.2-3.4); Lymphocytes % (auto) 5.6 %; Mean Corpuscular Hemoglobin 24.6 pg (25.0-34.0); Mean Corpuscular Hgb Conc 31.2 g/dL (32.0-36.0); Mean Corpuscular Volume 78.8 fL (80.0-100.0); Mean Platelet Volume 9.5 fL (9.4-12.4); Monocytes # (auto) 0.86 K/uL (0.24-0.82); Monocytes % (auto) 9.1 %; Neutrophils # (auto) 7.68 K/uL (1.4-6.5); Neutrophils % (auto) 81.4 %; Platelet Count 291 K/uL (130-400); RDW Coefficient of Variation 16.4 % (11.5-14.5); RDW Standard Deviation 46.5 fL (36.4-46.3); Red Blood Count 3.82 M/uL (4.63-6.08); White Blood Count 9.44 K/ul (4.8-10.8)
[2022-08-15 07:32] LABS: INR 2.4 (0.9-1.1); Prothrombin Time 24.5 Seconds (9.0-12.0)
[2022-08-15] MEDS: GABAPENTIN 100 MG CAP PO SCH (08:06)
[2022-08-15] MEDS: DOCUSATE SODIUM 100 MG CAP PO SCH (08:06)
[2022-08-15] MEDS: ROSUVASTATIN CALCIUM 20 MG TAB PO SCH (08:06)
[2022-08-15] MEDS: AMOXICILLIN/CLAVULANATE 875 MG TAB PO SCH (08:07)
[2022-08-15] MEDS: POLYETHYLENE (MIRALAX) 17 GM PACK PO SCH (08:07)
[2022-08-15] MEDS: METOPROLOL SUCC 25MG EXT REL TAB PO SCH (08:07)
[2022-08-15] MEDS: SERTRALINE HCL 50 MG TABLET PO SCH (08:07)
--- NOTE | 2022-08-15 08:42 | Cardiology Progress Note ---
Date of Service August 15, 2022 Assessment & Plan (1) Abdominal wall abscess: (2) Ischemic cardiomyopathy: (3) Aortic valve disease: Plan torsemide 20 mg every other day (order corrected to reflect this, next dose due 08/16). BP trending a little high, however acceptable-continue metoprolol and torsemide. -Post op incision and drainage of abdominal wall abscess on 08/09/22 with findings of e. coli on intraoperative cultures. -blood cultures negative. -Patient transitioned to oral Augmentin. INR 2.4 today, 08/15. Stop Lovenox. Continue coumadin [employer]IED [employer] COORDINATOR dose of 5 mg alternating with 7.5 mg daily. Goal INR 2.5-3.5 , however given bleeding risk, I think it is prudent to discon tinue lovenox at this point. Plan for physical therapy, anticipate transfer to the [facility]. Coumadin managed by the [place] anticoagulation clinic. Admission and Anticipated Discharge Date Admission Date: August 08, 2022 Subjective Patient seen in cardiology followup. Denies complaints. AF in the 60s noted on telemetry this am. Rates down to 40s to 50s with sleep. Physical Exam Constitutional: WD/WN, vitals as above Respiratory: normal respiratory effort, lungs clear to auscultation Cardiovascular: Rate/Rhythm: + irregularly irregular Heart Sounds: no murmur Extremities: no edema Neurologic: PERRL, EOMI, accommodation nl, no face palsy, no dysarthria Results & Data ([facility]) Vital Signs (Past 12 Hours) Vital Signs Temp Pulse Pulse Resp BP BP Pulse Ox 08/15/22 08:19 37.0 C 52 L 97 H 173/78 H 19 L 08/14/22 22:05 57 L 08/15/22 03:00 36.6 C 61 18 147/78 H 92 08/14/22 22:00 36.6 C 68 18 139/69 97 O2 Del Method 08/15/22 08:19 Room Air 08/14/22 22:05 08/15/22 03:00 Room Air 08/14/22 22:00 Room Air
--- NOTE | 2022-08-15 20:11 | Discharge Summary ---
Date of Service August 15, 2022 Admission HPI Per Admitting Provider 87-year-old male with a history of permanent A. fib, coronary artery disease status post 5 vessel CABG and mechanical aortic valve, and cardiomyopathy who presents with right abdominal wall fluid collection. The patient was first noted to have this fluid collection in April 2022. At the time it was noted to have presented very abruptly. He was seen in the ER and CT scan indicated a possible abdominal wall hematoma. This fit clinically with the patient as he is on warfarin for his aortic valve with an INR goal of 2.53.5. The area was monitored via recurrent CT scan, and has variably been described as no evolving hematoma, possible mass, versus abscess. Per the patient's report, it is now started to seep, and he was sent into the hospital for further evaluation. The patient denies any sort of fevers/chills, shortness of breath, abdominal pain, chest pain, nausea/vomiting. He reports the area is mildly tender to palpation, but otherwise is in his normal state of health. Principal Diagnosis Abdominal wall abscess, pathology pending status post I&D Discharge Data Allergies Allergy/AdvReac Type Severity Reaction Status Date / Time Sulfa (Sulfonamide AdvReac Intermediate Unknown Verified 07/24/22 01:29 Antibiotics) Consultations 08/08/22 17:39 ED Decision to Admit Stat 08/08/22 22:14 Consult Cardiology Routine Consult General Surgery Routine Procedures Performed Operation Date: 08/09/22 09:40 Actual Procedures p Incision and Drainage Abdominal fliud Colletion with Biopsy(Right) - Shaji Case, , FACS Ordered Studies 08/08/22 14:40 CT abd pelvis IV con only Stat 08/08/22 19:38 US abdomen limited Routine Hospital Course (1) Abdominal wall anomaly: Status post I&D on 08/09 : Pathology did not show any malignancy or mass, findings consistent with abscess, cultures positive for MSSA and E. coli pansensitive Rocephin was stopped on 08/12 started on Augmentin the end date of Augmentin is 08/22 -Wound care needs to be called for follow-up visits information is in discharge instruction, patient needs wound VAC (2) Aortic valve disease: Patient has prosthetic aortic valve Warfarin was held due to procedure Patient started heparin drip and then Lovenox bridge INR upon discharge was 2.4 Patient was started on warfarin home dosage If INR drops , Lovenox needs to be resumed (3) Acetabulum fracture, left: Noted last admission on 07/23/2022. Non-operative management per orthopedics. - Toe-touch weight-bearing on left leg for 6 weeks (End around mid-August) (4) Ischemic cardiomyopathy: EF was 25-30% in 09/2020 in the [facility] office. Declined ischemic work-up at that time. - Continue home metoprolol succinate, statin - Monitor volume status -> Holding torsemide for now, but can restart as needed - Given complex cardiology hx, [facility] cardiology consulted. (5) CAD (coronary artery disease): S/pCABG in 2002. Was on ASA previously, but appears to have been stopped early this month by his care facility. (6) HTN (hypertension): (7) Atrial fibrillation: Continue warfarin, rate controlled continue Toprol Total Time Total Time Spent Total Time Spent (In Minutes): 45 Discharge Plan Discharge Items Patient Disposition: Transfer [facility] Reason For Visit: POSSIBLE INFECTED HEMATOMA Discharge Diagnosis: abdominal wall Hematoma Activity: Resume your previous activity Bathing: No limitations Sexual Activity: When tolerated Driving/Machine Use: No limitations Weightbearing: Full weightbearing Non-emergency contact: Primary Care Provider and Surgeon Call non-emergency contact if: you have any medication questions, your symptoms worsen, your temperature is above 101.5, your wound has increased redness, your wound has increased drainage and your wound pain has increased Follow-up/Referrals: Shaji Case DO, FACS [Physician[facility] - [facility] [[facility] Provider] - Diet: Heart Healthy Add Attending Provider Instructions: You have an appointment with the wound care center on 08/16/22 at 1:00pm ( #[phone]) [address], [address] [place] [address] INR is 2.4 please check INR after 2 days if it is less than 2.5 please start the patient on [place] Lovenox Pending Studies at Discharge: Yes Studies:: INR in on 08/17 Stand-Alone Forms: My [employer] Skilled Items Patient informed of condition?: Yes DNR: No Discharge Level of Care: Skilled Communicable Disease: No Discharge Prognosis: Stable Lines: None Urinary Catheter: No Medications and DC Order Prescriptions: New amoxicillin-pot clavulanate 875-125 mg Tablet 1 tab PO BIDM Qty: 10 0RF Continued torsemide 20 mg tablet 20 mg PO Q OTHER DAY melatonin 3 mg Tablet 6 mg PO HS warfarin 5 mg tablet 5 mg PO [id number] Rx Instructions: TAKE 5MG EVERY SATURDAY/SATURDAY/SATURDAY vitamin B complex Tablet 1 tab PO DAILY gabapentin 100 mg Capsule 200 mg PO BID metoprolol succinate 25 mg tablet extended release 24 hr 25 mg PO DAILY fluticasone propionate [Flonase Allergy Relief] 50 mcg/actuation Parker,Suspension 2 spray INTRANASAL QAM Rx Instructions: administer into each nostril sertraline 50 mg tablet 50 mg PO QAM rosuvastatin 20 mg tablet 20 mg PO QAM docusate sodium 100 mg Tablet 100 mg PO AMPM polyethylene glycol 3350 17 gram Powder In Packet 17 g PO QAM warfarin 7.5 mg tablet 7.5 mg PO [id number] Rx Instructions: TAKE 7.5MG EVERY SATURDAY/ SATURDAY/SATURDAY/SATURDAY. food supplemt, lactose-reduced Liquid 1 ea PO DAILY [place] Saline Gel 1 applic TOPICAL QID PRN (Reason: nasal dryness) acetaminophen 500 mg Tablet 500 mg PO Q4 PRN (Reason: Pain) carboxymethylcellulose sodium [Refresh Tears] 0.5 % Drops 2 drp OPHTHALMIC (EYE) QID PRN (Reason: Dry Eyes) diphenhydramine HCl [Benadryl Allergy] 25 mg Tablet 25 mg PO Q6 PRN (Reason: Itching) Discontinued amoxicillin 500 mg capsule 2,000 mg PO ONCE PRN (Reason: 1 hour prior to dental appt) Biotene Moisturizing Mouth Parker,Non-Aerosol 2 spray MUCOUS MEMBRANE .Q 2 HOURS PRN (Reason: Dry Mouth) Discharge Orders: Discharge Order (Routine); Ordered 08/15/22 Ordered By: Gama Desir Admission Data Admit Date/Time: 08/08/22 18:30 Attending Provider: Gama Desir Admit Provider: Barrera Castorena Primary Care Provider: Mauro Mejia Other Providers: Barrera Castorena ; Luke Pruitt ; Shaji Case Other Interventions: Discharge Summary Assessment (RN) Last Done: 08/15/22 14:35 Coding Level of Care Code D/C DAY MANAGEMENT >30 MINS Diagnoses Abdominal wall anomaly Q79.59 Aortic valve disease I35.9 Acetabulum fracture, left S32.435A Encounter type: initial encounter Fracture alignment: nondisplaced Fracture type: closed Sublocation of acetabulum: anterior column Ischemic cardiomyopathy I25.5 CAD (coronary artery disease) I25.10 HTN (hypertension) I10 Atrial fibrillation I48.91
[2022-08-16] MEDS ORDERED: TORSEMIDE 10 MG TAB PO SCH (09:00)
== END 2022-08-15 15:50 | DRG 571 ==
LOC: ED 14:22 → SUATTDRO 18:30 → 2N 18:30 → 2W 08-14 23:15

== ENCOUNTER 2023-02-10 17:43 | Inpatient (IN) ==
[2023-02-10 18:31] LABS: Appearance Urine Clear (Clear); Bacteria Urine Automated Negative (Negative); Bilirubin Urine Negative (Negative); Blood Urine Trace (Negative); Cast Urine Automated 0 /lpf (0-5); Color Urine Yellow; Glucose Urine UA Negative (Negative); Ketones Urine Negative (Negative); Leukocyte Esterase Urine Negative (Negative); Nitrite Urine Negative (Negative); Protein Urine Negative (Negative); Specific Gravity Urine 1.012 (1.000-1.030); Urobilinogen Urine Negative (Negative)
[2023-02-10 18:36] LABS: Basophils # (auto) 0.05 K/uL (0-0.2); Basophils % (auto) 0.4 %; Eosinophils # (auto) 0.18 K/uL (0-0.50); Eosinophils % (auto) 1.4 %; Hematocrit (blood only) 33.1 % (42.0-52.0); Hemoglobin 9.7 g/dl (14.0-18.0); Immature Granulocytes # (auto) 0.06 K/uL (0.01-0.20); Immature Granulocytes % (auto) 0.5 %; Lymphocytes # (auto) 0.51 K/uL (1.2-3.4); Lymphocytes % (auto) 3.9 %; Mean Corpuscular Hemoglobin 20.3 pg (25.0-34.0); Mean Corpuscular Hgb Conc 29.3 g/dL (32.0-36.0); Mean Corpuscular Volume 69.1 fL (80.0-100.0); Monocytes # (auto) 1.03 K/uL (0.11-0.59); Monocytes % (auto) 7.9 %; Neutrophils # (auto) 11.25 K/uL (1.40-6.50); Neutrophils % (auto) 85.9 %; RDW Coefficient of Variation 21.2 % (11.5-14.5); RDW Standard Deviation 50.1 fL (36.4-46.3); Red Blood Count 4.79 M/uL (4.70-6.10); White Blood Count 13.08 K/ul (4.8-10.8)
--- NOTE | 2023-02-10 18:39 | XRay Report ---
XR chest 1V portable CLINICAL HISTORY: Shortness of breath. COMPARISON STUDY: Chest radiograph July 09, [address] July 23, 2022. FINDINGS: There are median sternotomy wires and prosthetic cardiac valve. Cardiomegaly is unchanged. There is mild interstitial thickening. No pneumothorax or pleural effusion is present. No consolidati on is identified. Severe osteoarthritis of the right glenohumeral joint is incidentally noted. IMPRESSION: Stable cardiomegaly. Interstitial thickening which favors mild pulmonary edema. An infec tious process is considered less likely. ACT 112: Negative or not required by law. Electronically signed by: Lucas Li M.D. 02/10/2023 6:38 PM
--- NOTE | 2023-02-10 18:45 | CT Scan Report ---
CT OF THE HEAD WITHOUT CONTRAST CLINICAL HISTORY: Fall. COMPARISON STUDY: Head CT July 23, 2022. CT DOSE: 703.85 mGy.cm TECHNIQUE: Helical axial images of the head were obtained without IV contrast. Automated exposure con trol was utilized for the study. A dose lowering technique was utilized adhering to the principles o f ALARA. FINDINGS: This study is mildly compromised by motion artifact. No acute intracranial hemorrhage, midl ine shift or mass effect is present. The ventricular system is stable. 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 White matter hypodensities are similar to prior exam and fa vor small vessel disease. The basal cisterns are patent. No extra-axial collections are present. Ther e are no findings to suggest acute dural sinus thrombosis or acute territorial infarct. No significan t calvarial abnormalities are present. Visualized portions of the sinuses and mastoid air cells are c lear. IMPRESSION: 1. No acute intracranial findings. No change in appearance of the brain. 2. No calvarial fractures. ACT 112: Negative or not required by law. Electronically signed by: Lucas Li M.D. 02/10/2023 6:42 PM
--- NOTE | 2023-02-10 18:51 | Emergency Department Note ---
Impression & Plan Fall, SOB (shortness of breath), Decubitus ulcer of right heel, CHF (congestive heart failure) ED Provider Note INFORMANT: Patient and EMS ED PROVIDER(S): Christiano Bennett MD CHIEF COMPLAINT: Fall PLAN: Disposition: Admitted Condition: Good Outpatient prescription management: none Referral: None MEDICAL DECISION MAKING: Patient presented after a fall and staff is concerned that he was somewhat altered. Patient did note shortness of breath but denied any chest pain. Work- up was performed. Patient is anticoagulated. Head CT was performed and was negative. Chest x-ray does show some pulmonary edema. Urinalysis negative. Mild leukocytosis on CBC and anemia which is stable. Patient's troponin is mildly elevated and his BNP is moderately elevated. O2 saturations are borderline. Patient was reassessed. Informed. IV Lasix ordered. Further management in the hospital will be necessary. Consultation was made with Dr. Chalo Howard of the [facility] service. Patient was evaluated in the ER for further management. Discussed with six sigma project manager After review of the information above and other included data, I feel the patient requires admission. Triage Nursing notes reviewed and agree them. Vital Signs: reviewed and remarkable for borderline O2 sats Prior /Outside records reviewed: Transfer records reviewed Differential diagnosis: Trauma, infection, dehydration, metabolic abnormality, hypo/hyperglycemia, electrolyte disturbance, anemia, hypoxia, cardiac sources, intracerebral event, toxicologic, neurologic, as well as other pathologies. Diagnostics, as interpreted by me: ECG: Twelve-lead ECG reveals atrial fibrillation 83 bpm. Nonspecific intraventricular block. Possible lateral infarct present. No ST elevation. Cardiac Monitoring: Cardiac monitoring ordered by me: The patient was placed on continuous cardiac monitoring and observed. It revealed a atrial fibrillation at 73 bpm. Medical decision rules: none Imaging studies: Chest x-ray reveals cardiomegaly and pulmonary edema HPI: The patient is a 87year old male who presents to the Emergency Room with complaints of an unwitnessed fall. [facility] and was found on his left side. It appeared that he fell over using his walker. Patient did suffer a skin tear to the left elbow. This was dressed by nursing staff. Few hours later he did not seem to be himself per the nursing staff and EMS was summoned for ER evaluation. The patient also notes the following associated symptoms, shortness of breath. The patient has been given no medication for relieving factors. Current pain is rated as 0/10. Pt denies LOC, headache, fevers, chills, visual changes, neck pain, chest pain, nausea, vomiting, abdominal pain, back pain, extremity pain, urinary symptoms, numbness, new weakness,or other complaints. PAST MEDICAL HISTORY: See Below, ischemic cardiomyopathy, hypertension, GERD, right hip fracture, anticoagulated PAST SURGICAL HISTORY: See Below, SOCIAL HISTORY: See Below, resides at nursing facility HOME MEDICATIONS: See Below ALLERGIES: See Below VITALS: See Below PHYSICAL EXAMINATION: GENERAL: Awake, alert, [id number], in no distress HENT: Normocephalic, atraumatic. Oropharynx unremarkable. EYES: Normal conjunctiva. Sclera non-icteric. NECK: Inspection normal. Non-tender. Supple. No nuchal rigidity. FROM. No masses. RESPIRATORY: Clear to auscultation. No wheezes. No rales. Normal respiratory effort. CARDIAC: Normal rate. Normal rhythm. No murmurs. No rubs. Extremities warm and well perfused. Pulses equal. No JVD. GI: Soft, non-distended. No tenderness to palpation. No rebound or guarding. No masses. RECTAL: Deferred. MUSCULOSKELETAL: Clean, dressed skin tear to the left elbow without bony tenderness. Right upper and both lower extremities are atraumatic. Chest examination reveals no tenderness. The back is symmetrical on inspection without obvious abnormality. There is no CVA tenderness to palpation. No joint edema. LOWER EXTREMITIES: Calves are equal size bilaterally and non-tender. No edema. No discoloration. Small decubiti noted on the right heel without signs of infection. NEURO: Normal sensorium. No sensory or motor deficits noted. SKIN: No rash or jaundice noted. 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 Atrial fibrillation permanent Atrial fibrillation On Coumadin - rate controlled per cardio Black stool CAD (coronary artery disease) s/p CABG x5 (2002) CAD (coronary artery disease) S/p 5 vessel CABG Cholangitis Cholelithiasis Chronic atrial fibrillation Chronic systolic (congestive) heart failure Improved volume status and dyspnea with initiation of diuretic per 09/2020 cardio records Cranial nerve palsy CVA (cerebral vascular accident) Per records dating back to 2014, patient denies Depression DVT prophylaxis Encounter for pre-operative examination Encounter for pre-operative examination GERD (gastroesophageal reflux disease) HTN (hypertension) Hyperlipidemia Intraventricular conduction delay Chronic per records Ischemic cardiomyopathy Mild decline in LVEF per 09/2020 ECHO (EF 25-30%) Memory deficits Surgical History Aortic valve replaced (during CABG- 2002) History of cholecystectomy History of hip surgery Right hip nailin07/03/20: Grade view 2, MAC#3, ETT 7.5 at [facility] S/P CABG x 5 2002 Status post incision and drainage Family History Unknown No problems noted. Father , 77 Myocardial infarction Brother Diabetes Social History Smoking Status: Former smoker Tobacco Type: Smokeless Tobacco (Dip or Chew) Second Hand Exposure: No; Do You Dip or Chew Tobacco: No; Hx Alcohol Use: No Hx Substance Use: No Preferred Language: Kyrgyz Communication Ability: Effective Visual Impairment: Diminished Hearing Ability: Normal Mail Caller Required: No Beliefs That Will Affect Care: None marital status: / Current Living Situation: Senior Care Current Living Situation Comment: Resides at [facility] current occupational status: retired and disabled How many Children do You have: 2 Feels Safe at Home: Yes Diet: regular caffeine: Yes Physical Activity Frequency: Does not Exercise Do you think of yourself as: straight/heterosexual Gender Identity: Male Assistive Devices: Walker and Wheelchair Allergies Allergies Allergy/AdvReac Type Severity Reaction Status Date / Time Sulfa (Sulfonamide AdvReac Intermediate Unknown Verified 01/30/23 08:35 Antibiotics) Home Meds Home Medications Medication Instructions Recorded Confirmed vitamin B complex 1 tab PO DAILY 05/11/22 02/10/23 acetaminophen 500 mg tablet 500 mg PO Q4 PRN Pain 08/08/22 02/10/23 diphenhydramine HCl 25 mg tablet 25 mg PO Q6 PRN Itching 08/08/22 02/10/23 (Benadryl Allergy) sodium chloride-aloe vera nasal 1 applic topical QID PRN nasal 08/08/22 02/10/23 gel ([place] Saline nasal gel) dryness albuterol sulfate 2.5 mg/3 mL 2.5 mg inhalation Q2H PRN Wheezing 02/10/23 02/10/23 (0.083 %) solution for nebulization carboxymethylcellulose sodium 1 % 2 drp OPB 4XD PRN Dry Eyes 02/10/23 02/10/23 eye liquid gel drops docusate sodium 100 mg capsule 100 mg PO BID 02/10/23 02/10/23 (Colace) fluticasone propionate 50 50 mcg intranasal DAILY 02/10/23 02/10/23 mcg/actuation nasal spray,suspension gabapentin 100 mg tablet 200 mg PO BID 02/10/23 02/10/23 hydrocortisone 1 % topical cream 1 applic topical BID PRN Itching 02/10/23 02/10/23 melatonin 3 mg tablet 3 mg PO HS PRN Insomnia 02/10/23 02/10/23 metolazone 5 mg tablet See Rx Instructions .Route .COMPLEX 02/10/23 02/10/23 metoprolol succinate 25 mg PO DAILY 02/10/23 02/10/23 metoprolol succinate 25 mg mg PO 02/10/23 tablet,extended release 24 hr multivitamin 1 tab PO DAILY 02/10/23 02/10/23 polyethylene glycol 3350 17 17 g PO DAILY PRN Constipation 02/10/23 02/10/23 gram/dose oral powder (Miralax) rosuvastatin 20 mg tablet 20 mg PO DAILY 02/10/23 02/10/23 sertraline 50 mg tablet 50 mg PO DAILY 02/10/23 02/10/23 torsemide 40 mg tablet 40 mg PO DAILY 02/10/23 02/10/23 warfarin 5 mg tablet 5 mg PO Q OTHER DAY 02/10/23 02/10/23 warfarin 7.5 mg tablet 7.5 mg PO Q OTHER DAY 02/10/23 02/10/23 Results & Data (ED) Vital Signs Vital Signs - 24 hr 02/10/23 18:03 02/10/23 18:12 02/10/23 18:13 Temperature 36.7 C Temperature Source Oral Pulse Rate 86 96 H 79 Pulse Rate [Apical] Pulse Rhythm Irregular Irregular Respiratory Rate 20 20 Respiratory Effort / Characteristics Respiratory Depth Respiratory Pattern Regular Blood Pressure 134/81 Blood Pressure [Right Arm] Blood Pressure Mean 98 Blood Pressure Mean [Right Arm] Blood Pressure Position Lying Pulse Oximetry 95 93 Oxygen Delivery Method Room Air Room Air Oxygen Flow Rate Sepsis Recent Fever Within 48 Hours No Sepsis New/Unexplained Change in Mental Status No Sepsis Action Taken by Nursing No Action Required 02/10/23 19:09 02/10/23 19:33 02/10/23 19:34 Temperature Temperature Source Pulse Rate Pulse Rate [Apical] 98 H 87 Pulse Rhythm Respiratory Rate 19 19 19 Respiratory Effort / Characteristics Non-Labored Non-Labored Non-Labored Respiratory Depth Normal Normal Normal Respiratory Pattern Blood Pressure Blood Pressure [Right Arm] 135/81 Blood Pressure Mean Blood Pressure Mean [Right Arm] 99 Blood Pressure Position Pulse Oximetry 93 88 L 94 Oxygen Delivery Method Room Air Room Air Nasal Cannula Oxygen Flow Rate 2 Sepsis Recent Fever Within 48 Hours Sepsis New/Unexplained Change in Mental Status Sepsis Action Taken by Nursing 02/10/23 21:11 02/10/23 22:00 Temperature Temperature Source Pulse Rate 70 Pulse Rate [Apical] 78 Pulse Rhythm Respiratory Rate 22 Respiratory Effort / Characteristics Non-Labored Spontaneous SOB on Exertion Respiratory Depth Normal Respiratory Pattern Regular Blood Pressure Blood Pressure [Right Arm] 131/85 Blood Pressure Mean Blood Pressure Mean [Right Arm] 100 Blood Pressure Position Pulse Oximetry 96 Oxygen Delivery Method Nasal Cannula Oxygen Flow Rate 2 Sepsis Recent Fever Within 48 Hours Sepsis New/Unexplained Change in Mental Status Sepsis Action Taken by Nursing Laboratory Data 02/10/23 18:00 02/10/23 18:00 Lab Results 02/10/23 02/10/23 02/10/23 Range/Units 18:00 18:00 18:00 WBC 13.08 H (4.8-10.8) K/ul RBC 4.79 (4.70-6.10) M/uL Hgb 9.7 L (14.0-18.0) g/dl Hct 33.1 L (42.0-52.0) % MCV 69.1 L (80.0-100.0) fL MCH 20.3 L (25.0-34.0) pg MCHC 29.3 L (32.0-36.0) g/dL RDW Std Deviation 50.1 H (36.4-46.3) fL RDW Coeff of Miller 21.2 H (11.5-14.5) % Plt Count 287 (130-400) K/uL MPV 10.3 (9.4-12.4) fL Immature Gran % (Auto) 0.5 % Neut % (Auto) 85.9 % Lymph % (Auto) 3.9 % Snyder % (Auto) 7.9 % Eos % (Auto) 1.4 % Baso % (Auto) 0.4 % Neut # (Auto) 11.25 H (1.40-6.50) K/uL Lymph # (Auto) 0.51 L (1.2-3.4) K/uL Snyder # (Auto) 1.03 H (0.11-0.59) K/uL Eos # (Auto) 0.18 (0-0.50) K/uL Baso # (Auto) 0.05 (0-0.2) K/uL Immature Gran # (Auto) 0.06 (0.01-0.20) K/uL Polychromasia 2+ Anisocytosis Present Microcytosis Present Tear Drop Cells 1+ PT 36.5 H (9.0-12.0) Seconds INR 3.6 H (0.9-1.1) Sodium 139 (136-145) mmol/L Potassium 4.4 (3.5-5.1) mmol/L Chloride 103 (98-107) mmol/L Carbon Dioxide 27 (21-32) mmol/L Anion Gap 9 (3-11) BUN 19 (6-23) mg/dl Creatinine 0.91 (0.6-1.4) mg/dl Est Cr Clr Drug Dosing 66.5 ml/min Est GFR ( Amer) 88.1 ml/min Est GFR (Non-Af Amer) 76.0 ml/min BUN/Creatinine Ratio 20.9 H (10-20) Glucose 100 H (70-99(Fasting)) mg/dl Calcium 9.2 (8.6-10.3) mg/dl Magnesium 2.1 (1.7-2.4) mg/dl Total Bilirubin 0.9 (0.2-1.0) mg/dl AST 25 (13-39) U/L ALT 11 (7-52) U/L Alkaline Phosphatase 107 H (34-104) U/L Troponin I High Sens 25.9 H (0-20) pg/ml B-Natriuretic Peptide (0-100) pg/ml Total Protein 7.4 (6.0-8.3) gm/dl Albumin 3.9 (3.4-5.0) gm/dl Globulin 3.5 (2.5-4.0) gm/dl Albumin/Globulin Ratio 1.1 (0.9-2) TSH (0.300-4.500) uIu/ml Urine Color Urine Appearance (Clear) Urine pH (4.5-7.5) Ur Specific [place] (1.000-1.030) Urine Protein (Negative) Urine Glucose (UA) (Negative) Urine Ketones (Negative) Urine Blood (Negative) Urine Nitrite (Negative) Urine Bilirubin (Negative) Urine Urobilinogen (Negative) Ur Leukocyte Esterase (Negative) Urine WBC (Auto) (0-5) /hpf Urine RBC (Auto) (0-4) /hpf U Hyaline Cast (Auto) (0-5) /lpf U Epithel Cells (Auto) (0-5) /lpf Urine Bacteria (Auto) (Negative) SARS-CoV-2, RNA, NAAT (NEGATIVE) 02/10/23 02/10/23 02/10/23 Range/Units 18:00 18:00 18:13 WBC (4.8-10.8) K/ul RBC (4.70-6.10) M/uL Hgb (14.0-18.0) g/dl Hct (42.0-52.0) % MCV (80.0-100.0) fL MCH (25.0-34.0) pg MCHC (32.0-36.0) g/dL RDW Std Deviation (36.4-46.3) fL RDW Coeff of Miller (11.5-14.5) % Plt Count (130-400) K/uL MPV (9.4-12.4) fL Immature Gran % (Auto) % Neut % (Auto) % Lymph % (Auto) % Snyder % (Auto) % Eos % (Auto) % Baso % (Auto) % Neut # (Auto) (1.40-6.50) K/uL Lymph # (Auto) (1.2-3.4) K/uL Snyder # (Auto) (0.11-0.59) K/uL Eos # (Auto) (0-0.50) K/uL Baso # (Auto) (0-0.2) K/uL Immature Gran # (Auto) (0.01-0.20) K/uL Polychromasia Anisocytosis Microcytosis Tear Drop Cells PT (9.0-12.0) Seconds INR (0.9-1.1) Sodium (136-145) mmol/L Potassium (3.5-5.1) mmol/L Chloride (98-107) mmol/L Carbon Dioxide (21-32) mmol/L Anion Gap (3-11) BUN (6-23) mg/dl Creatinine (0.6-1.4) mg/dl Est Cr Clr Drug Dosing ml/min Est GFR ( Amer) ml/min Est GFR (Non-Af Amer) ml/min BUN/Creatinine Ratio (10-20) Glucose (70-99(Fasting)) mg/dl Calcium (8.6-10.3) mg/dl Magnesium (1.7-2.4) mg/dl Total Bilirubin (0.2-1.0) mg/dl AST (13-39) U/L ALT (7-52) U/L Alkaline Phosphatase (34-104) U/L Troponin I High Sens (0-20) pg/ml B-Natriuretic Peptide 841 H (0-100) pg/ml Total Protein (6.0-8.3) gm/dl Albumin (3.4-5.0) gm/dl Globulin (2.5-4.0) gm/dl Albumin/Globulin Ratio (0.9-2) TSH 3.563 (0.300-4.500) uIu/ml Urine Color Yellow Urine Appearance Clear (Clear) Urine pH 7.0 (4.5-7.5) Ur Specific [place] 1.012 (1.000-1.030) Urine Protein Negative (Negative) Urine Glucose (UA) Negative (Negative) Urine Ketones Negative (Negative) Urine Blood Trace H (Negative) Urine Nitrite Negative (Negative) Urine Bilirubin Negative (Negative) Urine Urobilinogen Negative (Negative) Ur Leukocyte Esterase Negative (Negative) Urine WBC (Auto) 1-5 (0-5) /hpf Urine RBC (Auto) 5-10 H (0-4) /hpf U Hyaline Cast (Auto) 0 (0-5) /lpf U Epithel Cells (Auto) 5-10 H (0-5) /lpf Urine Bacteria (Auto) Negative (Negative) SARS-CoV-2, RNA, NAAT (NEGATIVE) 02/10/23 02/10/23 Range/Units 19:30 20:32 WBC (4.8-10.8) K/ul RBC (4.70-6.10) M/uL Hgb (14.0-18.0) g/dl Hct (42.0-52.0) % MCV (80.0-100.0) fL MCH (25.0-34.0) pg MCHC (32.0-36.0) g/dL RDW Std Deviation (36.4-46.3) fL RDW Coeff of Miller (11.5-14.5) % Plt Count (130-400) K/uL MPV (9.4-12.4) fL Immature Gran % (Auto) % Neut % (Auto) % Lymph % (Auto) % Snyder % (Auto) % Eos % (Auto) % Baso % (Auto) % Neut # (Auto) (1.40-6.50) K/uL Lymph # (Auto) (1.2-3.4) K/uL Snyder # (Auto) (0.11-0.59) K/uL Eos # (Auto) (0-0.50) K/uL Baso # (Auto) (0-0.2) K/uL Immature Gran # (Auto) (0.01-0.20) K/uL Polychromasia Anisocytosis Microcytosis Tear Drop Cells PT (9.0-12.0) Seconds INR (0.9-1.1) Sodium (136-145) mmol/L Potassium (3.5-5.1) mmol/L Chloride (98-107) mmol/L Carbon Dioxide (21-32) mmol/L Anion Gap (3-11) BUN (6-23) mg/dl Creatinine (0.6-1.4) mg/dl Est Cr Clr Drug Dosing ml/min Est GFR ( Amer) ml/min Est GFR (Non-Af Amer) ml/min BUN/Creatinine Ratio (10-20) Glucose (70-99(Fasting)) mg/dl Calcium (8.6-10.3) mg/dl Magnesium (1.7-2.4) mg/dl Total Bilirubin (0.2-1.0) mg/dl AST (13-39) U/L ALT (7-52) U/L Alkaline Phosphatase (34-104) U/L Troponin I High Sens 29.8 H (0-20) pg/ml B-Natriuretic Peptide (0-100) pg/ml Total Protein (6.0-8.3) gm/dl Albumin (3.4-5.0) gm/dl Globulin (2.5-4.0) gm/dl Albumin/Globulin Ratio (0.9-2) TSH (0.300-4.500) uIu/ml Urine Color Urine Appearance (Clear) Urine pH (4.5-7.5) Ur Specific [place] (1.000-1.030) Urine Protein (Negative) Urine Glucose (UA) (Negative) Urine Ketones (Negative) Urine Blood (Negative) Urine Nitrite (Negative) Urine Bilirubin (Negative) Urine Urobilinogen (Negative) Ur Leukocyte Esterase (Negative) Urine WBC (Auto) (0-5) /hpf Urine RBC (Auto) (0-4) /hpf U Hyaline Cast (Auto) (0-5) /lpf U Epithel Cells (Auto) (0-5) /lpf Urine Bacteria (Auto) (Negative) SARS-CoV-2, RNA, NAAT NEGATIVE (NEGATIVE) Administered Medications Discontinued Medications Furosemide (Furosemide Inj 20 Mg/2 Ml Vial) 20 mg IV ONE ONE Stop: 02/10/23 19:21 Last Admin: 02/10/23 19:26 Dose: 20 mg Documented By: Imaging Data Radiologist's Impression: Chest X-Ray 02/10/23 18:13 XR chest 1V portable CLINICAL HISTORY: Shortness of breath. COMPARISON STUDY: Chest radiograph July 09, [address] July 23, 2022. FINDINGS: There are median sternotomy wires and prosthetic cardiac valve. Cardiomegaly is unchanged. There is mild interstitial thickening. No pneumothorax or pleural effusion is present. No consolidation is identified. Severe osteoarthritis of the right glenohumeral joint is incidentally noted. IMPRESSION: Stable cardiomegaly. Interstitial thickening which favors mild pulmonary edema. An infectious process is considered less likely. ACT 112: Negative or not required by law. Electronically signed by: Lucas Li M.D. 02/10/2023 6:[address] 02/10/23 18:13 CT OF THE HEAD WITHOUT CONTRAST CLINICAL HISTORY: Fall. COMPARISON STUDY: Head CT July 23, 2022. CT DOSE: 703.85 mGy.cm TECHNIQUE: Helical axial images of the head were obtained without IV contrast. Automated exposure control was utilized for the study. A dose lowering technique was utilized adhering to the principles of ALARA. FINDINGS: This study is mildly compromised by motion artifact. No acute intracranial hemorrhage, midline shift or mass effect is present. The ventricular system is stable. 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 White matter hypodensities are similar to prior exam and favor small vessel disease. The basal cisterns are patent. No extra-axial collections are present. There are no findings to suggest acute dural sinus thrombosis or acute territorial infarct. No significant calvarial abnormalities are present. Visualized portions of the sinuses and mastoid air cells are clear. IMPRESSION: 1. No acute intracranial findings. No change in appearance of the brain. 2. No calvarial fractures. ACT 112: Negative or not required by law. Electronically signed by: Lucas Li M.D. 02/10/2023 6:42 PM Discharge Plan Visit Data Chief Complaint: Fall Stated Complaint: FALL ED Provider: Christiano Bennett Discharge Problem: Fall, SOB (shortness of breath), Decubitus ulcer of right heel, CHF (congestive heart failure) Patient Disposition: Admitted As Inpatient Discharge Instructions Interventions: ED Discharge Assessment Last Done: 02/11/23 00:04
[2023-02-10 18:53] LABS: Albumin Globulin Ratio 1.1 (0.9-2); Albumin Level 3.9 gm/dl (3.4-5.0); BUN Creatinine Ratio 20.9 (10-20); Bilirubin,Total 0.9 mg/dl (0.2-1.0); Calcium 9.2 mg/dl (8.6-10.3); Creatinine Clr Calc Pharmacy 66.5 ml/min; Est GFR (African American) 88.1 ml/min; Globulin 3.5 gm/dl (2.5-4.0); Magnesium 2.1 mg/dl (1.7-2.4); Potassium 4.4 mmol/L (3.5-5.1); Total Protein 7.4 gm/dl (6.0-8.3)
[2023-02-10 18:59] LABS: Anisocytosis Present; Mean Platelet Volume 10.3 fL (9.4-12.4); Microcytosis Present; Platelet Count 287 K/uL (130-400); Polychromasia 2+; Tear Drop Cells 1+
[2023-02-10 19:00] LABS: Troponin I High Sensitivity 25.9 pg/ml (0-20)
[2023-02-10] MEDS ORDERED: FUROSEMIDE INJ 20 MG/2 ML VIAL IV ONE (19:20)
[2023-02-10 19:21] LABS: INR 3.6 (0.9-1.1); Prothrombin Time 36.5 Seconds (9.0-12.0)
--- NOTE | 2023-02-10 20:20 | History & Physical Report ---
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 #Acute on chronic CHF in exacerbation #Shortness of breath -3 weeks ongoing sob. Follows with [facility] cardiology. Last reported echo 2020 with EF 25-30%. Cr wnl. BNP 841. Chronically on supplemental O2 at night, flow rate unknown. -CXR: Stable cardiomegaly. Interstitial thickening which favors mild pulmonary edema. -chronically on torsemide 40mg po daily and metolazone 5mg MWF. Continue with this for now. May need adjustment, unclear etiology for exacerbation. -given IV lasix 20mg in ED. -daily weights, strict I/Os, low Na diet -duoneb ordered -echo ordered -[facility] cardiology consulted #Fall -presented with fall due to feeling dizzy. Denies MSK pain. Unclear etiology of dizziness, consider medication induced vs anemia vs CHF exacerbation. -CT head without bleed #Elevated troponin -29.8 on admission. Suspect due to demand. EKG without ischemic changes. Trend. #Anemia, chronic, stable -hgb 9.7 admission. Etiology unknown, consider iron deficiency vs chronic disease -iron studies ordered #Pressure ulcer R heel #Surgical wound R abdomen, resolved -wound care consulted #s/p aortic valve replacement -cont. warfarin -INR 3.6, mildly supratherapeutic (goal 2.5-3.5), trend. #Permanent afib -cont. warfarin, metoprolol #HTN -cont. metoprolol, metolazone #Zoster pain -cont. gabapentin to avoid withdrawal -would consider tapering or d/c in case this is causing intermittent dizziness #Depression -cont. sertraline #Constipation -cont. docusate sodium -miralax prn #HLD -cont. rosuvastatin DVT ppx: warfarin FEN/GI: HH, low Na Code Status: DNI/DNR Dispo: med tele (2) SOB (shortness of breath): (3) CHF (congestive heart failure): (4) Stage III pressure ulcer of right heel: (5) Osteomyelitis of right foot: (6) Surgical wound, non healing: (7) Ischemic cardiomyopathy: (8) GERD (gastroesophageal reflux disease): (9) Depression: (10) CAD (coronary artery disease): (11) Aortic valve disease: (12) Atrial fibrillation: (13) Hyperlipidemia: History of Present Illness Chief Complaint: fall, sob Primary Care Provider: [facility] 87 yo male with PMHx of CHF, pressure ulcer R heel, depression, ischemic cardiomyopathy, HTN, HLD, GERD, CAD s/p CABG, 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 Patient resides at the [facility]. Earlier today he was found on the ground laying on his left side near his walker. This was a presumed unwitnessed fall. He states that he felt a little dizzy which is what caused him to fall. This is happened to him about 5 times over the past couple of years. Per nursing staff patient did appear a bit altered at time of evaluation. He has associated shortness of breath which she states he has been experiencing for the past few weeks. Denies loss of consciousness, headache, fevers, chest pain, visual changes, abdominal pain, nausea, vomiting, dysuria, constipation, diarrhea, musculoskeletal pain. He follows with [facility] cardiology for his chronic heart conditions. He also sees wound care weekly for a pressure ulcer on his right heel which was debrided in 2021 as well as a surgical wound on his right abdomen which is now healed. Right foot CT in October 2022 demonstrated chronic osteomyelitis versus reactive osteitis of the heel however case was discussed and patient not a surgical candidate at this time. Allergies Allergy/AdvReac Type Severity Reaction Status Date / Time Sulfa (Sulfonamide AdvReac Intermediate Unknown Verified 01/30/23 08:35 Antibiotics) Home Medications Medication Instructions Recorded Confirmed Type vitamin B complex 1 tab PO DAILY 05/11/22 02/10/23 History acetaminophen 500 mg tablet 500 mg PO Q4 PRN Pain 08/08/22 02/10/23 History diphenhydramine HCl 25 mg tablet 25 mg PO Q6 PRN Itching 08/08/22 02/10/23 History (Benadryl Allergy) sodium chloride-aloe vera nasal 1 applic topical QID PRN nasal 08/08/22 02/10/23 History gel ([place] Saline nasal gel) dryness albuterol sulfate 2.5 mg/3 mL 2.5 mg inhalation Q2H PRN Wheezing 02/10/23 02/10/23 History (0.083 %) solution for nebulization warfarin 5 mg tablet 5 mg PO Q OTHER DAY 02/10/23 02/10/23 History warfarin 7.5 mg tablet 7.5 mg PO Q OTHER DAY 02/10/23 02/10/23 History 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 Atrial fibrillation permanent Atrial fibrillation On Coumadin - rate controlled per cardio Black stool CAD (coronary artery disease) s/p CABG x5 (2002) CAD (coronary artery disease) S/p 5 vessel CABG Cholangitis Cholelithiasis Chronic atrial fibrillation Chronic systolic (congestive) heart failure Improved volume status and dyspnea with initiation of diuretic per 09/2020 cardio records Cranial nerve palsy CVA (cerebral vascular accident) Per records dating back to 2014, patient denies Depression DVT prophylaxis Encounter for pre-operative examination Encounter for pre-operative examination GERD (gastroesophageal reflux disease) HTN (hypertension) Hyperlipidemia Intraventricular conduction delay Chronic per records Ischemic cardiomyopathy Mild decline in LVEF per 09/2020 ECHO (EF 25-30%) Memory deficits Surgical History Aortic valve replaced (during CABG- 2002) History of cholecystectomy History of hip surgery Right hip nailin07/03/20: Grade view 2, MAC#3, ETT 7.5 at [facility] S/P CABG x 5 2002 Status post incision and drainage Family History Unknown No problems noted. Father , 77 Myocardial infarction Brother Diabetes Social History Smoking Status: Former smoker Tobacco Type: Smokeless Tobacco (Dip or Chew) Second Hand Exposure: No; Do You Dip or Chew Tobacco: No; Hx Alcohol Use: No Hx Substance Use: No Preferred Language: Czech Communication Ability: Effective Visual Impairment: Diminished Hearing Ability: Normal Lining Finisher Required: No Beliefs That Will Affect Care: None marital status: / Current Living Situation: Intermediate Current Living Situation Comment: Resides at [facility] current occupational status: retired and disabled How many Children do You have: 2 Feels Safe at Home: Yes Diet: regular caffeine: Yes Physical Activity Frequency: Does not Exercise Do you think of yourself as: straight/heterosexual Gender Identity: Male Assistive Devices: Walker and Wheelchair Review of Systems Review of Systems: All systems reviewed & are unremarkable except as noted in HPI & below Physical Exam Physical Exam: Constitutional: in no acute distress, pleasant, intact memory. AOx3. Vitals as above. HEENT: No scleral injection or discharge.Moist mucous membranes.Clear oropharynx. Neck: Supple without lymphadenopathy or thyromegaly. Trachea midline. Lungs: +diffuse expiratory wheezing with mildly diminished bibasilar sounds. No rales/rhonchi appreciated. Cardiac: Irregularly irregular rhythm.Regular rate. No murmurs.No extremity edema. 2+ distal peripheral pulses. Abdomen: Bowel sounds present. Soft, nontender, and nondistended.No guarding. No hepatosplenomegaly. MSK: No cyanosis or clubbing. Skin: R foot with darco shoe , surgical wound R abdomen c/d/i. Neurologic: no focal deficits Results & Data Results & Data Vital Signs (Past 12 Hours) Vital Signs Temp Pulse Pulse Resp BP BP Pulse Ox 02/10/23 19:34 87 19 94 02/10/23 19:33 19 88 L 02/10/23 19:09 98 H 19 135/81 93 02/10/23 18:13 79 20 93 02/10/23 18:12 36.7 C 96 H 20 134/81 95 02/10/23 18:03 86 O2 Del Method O2 Flow Rate 02/10/23 19:34 Nasal Cannula 2 02/10/23 19:33 Room Air 02/10/23 19:09 Room Air 02/10/23 18:13 Room Air 02/10/23 18:12 Room Air 02/10/23 18:03 Laboratory Results Laboratory Results WBC 13.08 K/ul (4.8-10.8) H 02/10/23 18:00 RBC 4.79 M/uL (4.70-6.10) 02/10/23 18:00 Hgb 9.7 g/dl (14.0-18.0) L 02/10/23 18:00 Hct 33.1 % (42.0-52.0) L 02/10/23 18:00 MCV 69.1 fL (80.0-100.0) L 02/10/23 18:00 MCH 20.3 pg (25.0-34.0) L 02/10/23 18:00 MCHC 29.3 g/dL (32.0-36.0) L 02/10/23 18:00 RDW Std Deviation 50.1 fL (36.4-46.3) H 02/10/23 18:00 RDW Coeff of Miller 21.2 % (11.5-14.5) H 02/10/23 18:00 Plt Count 287 K/uL (130-400) 02/10/23 18:00 MPV 10.3 fL (9.4-12.4) 02/10/23 18:00 Immature Gran % (Auto) 0.5 % 02/10/23 18:00 Neut % (Auto) 85.9 % 02/10/23 18:00 Lymph % (Auto) 3.9 % 02/10/23 18:00 Stewart % (Auto) 7.9 % 02/10/23 18:00 Eos % (Auto) 1.4 % 02/10/23 18:00 Baso % (Auto) 0.4 % 02/10/23 18:00 Neut # (Auto) 11.25 K/uL (1.40-6.50) H 02/10/23 18:00 Lymph # (Auto) 0.51 K/uL (1.2-3.4) L 02/10/23 18:00 Stewart # (Auto) 1.03 K/uL (0.11-0.59) H 02/10/23 18:00 Eos # (Auto) 0.18 K/uL (0-0.50) 02/10/23 18:00 Baso # (Auto) 0.05 K/uL (0-0.2) 02/10/23 18:00 Immature Gran # (Auto) 0.06 K/uL (0.01-0.20) 02/10/23 18:00 Polychromasia 2+ 02/10/23 18:00 Anisocytosis Present 02/10/23 18:00 Microcytosis Present 02/10/23 18:00 Tear Drop Cells 1+ 02/10/23 18:00 PT 36.5 Seconds (9.0-12.0) H 02/10/23 18:00 INR 3.6 (0.9-1.1) H 02/10/23 18:00 Sodium 139 mmol/L (136-145) 02/10/23 18:00 Potassium 4.4 mmol/L (3.5-5.1) 02/10/23 18:00 Chloride 103 mmol/L (98-107) 02/10/23 18:00 Carbon Dioxide 27 mmol/L (21-32) 02/10/23 18:00 Anion Gap 9 (3-11) 02/10/23 18:00 BUN 19 mg/dl (6-23) 02/10/23 18:00 Creatinine 0.91 mg/dl (0.6-1.4) 02/10/23 18:00 Est Cr Clr Drug Dosing 66.5 ml/min 02/10/23 18:00 Est GFR ( Amer) 88.1 ml/min 02/10/23 18:00 Est GFR (Non-Af Amer) 76.0 ml/min 02/10/23 18:00 BUN/Creatinine Ratio 20.9 (10-20) H 02/10/23 18:00 Glucose 100 mg/dl (70-99(Fasting)) H 02/10/23 18:00 Calcium 9.2 mg/dl (8.6-10.3) 02/10/23 18:00 Magnesium 2.1 mg/dl (1.7-2.4) 02/10/23 18:00 Total Bilirubin 0.9 mg/dl (0.2-1.0) 02/10/23 18:00 AST 25 U/L (13-39) 02/10/23 18:00 ALT 11 U/L (7-52) 02/10/23 18:00 Alkaline Phosphatase 107 U/L (34-104) H 02/10/23 18:00 Troponin I High Sens 25.9 pg/ml (0-20) H 02/10/23 18:00 B-Natriuretic Peptide 841 pg/ml (0-100) H 02/10/23 18:13 Total Protein 7.4 gm/dl (6.0-8.3) 02/10/23 18:00 Albumin 3.9 gm/dl (3.4-5.0) 02/10/23 18:00 Globulin 3.5 gm/dl (2.5-4.0) 02/10/23 18:00 Albumin/Globulin Ratio 1.1 (0.9-2) 02/10/23 18:00 TSH 3.563 uIu/ml (0.300-4.500) 02/10/23 18:00 Urine Color Yellow 02/10/23 18:00 Urine Appearance Clear (Clear) 02/10/23 18:00 Urine pH 7.0 (4.5-7.5) 02/10/23 18:00 Ur Specific [place] 1.012 (1.000-1.030) 02/10/23 18:00 Urine Protein Negative (Negative) 02/10/23 18:00 Urine Glucose (UA) Negative (Negative) 02/10/23 18:00 Urine Ketones Negative (Negative) 02/10/23 18:00 Urine Blood Trace (Negative) H 02/10/23 18:00 Urine Nitrite Negative (Negative) 02/10/23 18:00 Urine Bilirubin Negative (Negative) 02/10/23 18:00 Urine Urobilinogen Negative (Negative) 02/10/23 18:00 Ur Leukocyte Esterase Negative (Negative) 02/10/23 18:00 Urine WBC (Auto) 1-5 /hpf (0-5) 02/10/23 18:00 Urine RBC (Auto) 5-10 /hpf (0-4) H 02/10/23 18:00 U Hyaline Cast (Auto) 0 /lpf (0-5) 02/10/23 18:00 U Epithel Cells (Auto) 5-10 /lpf (0-5) H 02/10/23 18:00 Urine Bacteria (Auto) Negative (Negative) 02/10/23 18:00 SARS-CoV-2, RNA, NAAT NEGATIVE (NEGATIVE) 02/10/23 19:30 Impressions Chest X-Ray 02/10/23 18:13 XR chest 1V portable CLINICAL HISTORY: Shortness of breath. COMPARISON STUDY: Chest radiograph July 09, [address] July 23, 2022. FINDINGS: There are median sternotomy wires and prosthetic cardiac valve. Cardiomegaly is unchanged. There is mild interstitial thickening. No pneumothorax or pleural effusion is present. No consolidation is identified. Severe osteoarthritis of the right glenohumeral joint is incidentally noted. IMPRESSION: Stable cardiomegaly. Interstitial thickening which favors mild pulmonary edema. An infectious process is considered less likely. ACT 112: Negative or not required by law. Electronically signed by: Lucas Li M.D. 02/10/2023 6:[address] 02/10/23 18:13 CT OF THE HEAD WITHOUT CONTRAST CLINICAL HISTORY: Fall. COMPARISON STUDY: Head CT July 23, 2022. CT DOSE: 703.85 mGy.cm TECHNIQUE: Helical axial images of the head were obtained without IV contrast. Automated exposure control was utilized for the study. A dose lowering technique was utilized adhering to the principles of ALARA. FINDINGS: This study is mildly compromised by motion artifact. No acute intracranial hemorrhage, midline shift or mass effect is present. The ventricular system is stable. 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 White matter hypodensities are similar to prior exam and favor small vessel disease. The basal cisterns are patent. No extra-axial collections are present. There are no findings to suggest acute dural sinus thrombosis or acute territorial infarct. No significant calvarial abnormalities are present. Visualized portions of the sinuses and mastoid air cells are clear. IMPRESSION: 1. No acute intracranial findings. No change in appearance of the brain. 2. No calvarial fractures. ACT 112: Negative or not required by law. Electronically signed by: Lucas Li M.D. 02/10/2023 6:42 PM Diagnostic Findings Laboratory Results WBC 13.08 K/ul (4.8-10.8) H 02/10/23 18:00 RBC 4.79 M/uL (4.70-6.10) 02/10/23 18:00 Hgb 9.7 g/dl (14.0-18.0) L 02/10/23 18:00 Hct 33.1 % (42.0-52.0) L 02/10/23 18:00 MCV 69.1 fL (80.0-100.0) L 02/10/23 18:00 MCH 20.3 pg (25.0-34.0) L 02/10/23 18:00 MCHC 29.3 g/dL (32.0-36.0) L 02/10/23 18:00 RDW Std Deviation 50.1 fL (36.4-46.3) H 02/10/23 18:00 RDW Coeff of Miller 21.2 % (11.5-14.5) H 02/10/23 18:00 Plt Count 287 K/uL (130-400) 02/10/23 18:00 MPV 10.3 fL (9.4-12.4) 02/10/23 18:00 Immature Gran % (Auto) 0.5 % 02/10/23 18:00 Neut % (Auto) 85.9 % 02/10/23 18:00 Lymph % (Auto) 3.9 % 02/10/23 18:00 Stewart % (Auto) 7.9 % 02/10/23 18:00 Eos % (Auto) 1.4 % 02/10/23 18:00 Baso % (Auto) 0.4 % 02/10/23 18:00 Neut # (Auto) 11.25 K/uL (1.40-6.50) H 02/10/23 18:00 Lymph # (Auto) 0.51 K/uL (1.2-3.4) L 02/10/23 18:00 Stewart # (Auto) 1.03 K/uL (0.11-0.59) H 02/10/23 18:00 Eos # (Auto) 0.18 K/uL (0-0.50) 02/10/23 18:00 Baso # (Auto) 0.05 K/uL (0-0.2) 02/10/23 18:00 Immature Gran # (Auto) 0.06 K/uL (0.01-0.20) 02/10/23 18:00 Polychromasia 2+ 02/10/23 18:00 Anisocytosis Present 02/10/23 18:00 Microcytosis Present 02/10/23 18:00 Tear Drop Cells 1+ 02/10/23 18:00 PT 36.5 Seconds (9.0-12.0) H 02/10/23 18:00 INR 3.6 (0.9-1.1) H 02/10/23 18:00 Sodium 139 mmol/L (136-145) 02/10/23 18:00 Potassium 4.4 mmol/L (3.5-5.1) 02/10/23 18:00 Chloride 103 mmol/L (98-107) 02/10/23 18:00 Carbon Dioxide 27 mmol/L (21-32) 02/10/23 18:00 Anion Gap 9 (3-11) 02/10/23 18:00 BUN 19 mg/dl (6-23) 02/10/23 18:00 Creatinine 0.91 mg/dl (0.6-1.4) 02/10/23 18:00 Est Cr Clr Drug Dosing 66.5 ml/min 02/10/23 18:00 Est GFR ( Amer) 88.1 ml/min 02/10/23 18:00 Est GFR (Non-Af Amer) 76.0 ml/min 02/10/23 18:00 BUN/Creatinine Ratio 20.9 (10-20) H 02/10/23 18:00 Glucose 100 mg/dl (70-99(Fasting)) H 02/10/23 18:00 Calcium 9.2 mg/dl (8.6-10.3) 02/10/23 18:00 Magnesium 2.1 mg/dl (1.7-2.4) 02/10/23 18:00 Total Bilirubin 0.9 mg/dl (0.2-1.0) 02/10/23 18:00 AST 25 U/L (13-39) 02/10/23 18:00 ALT 11 U/L (7-52) 02/10/23 18:00 Alkaline Phosphatase 107 U/L (34-104) H 02/10/23 18:00 Troponin I High Sens 29.8 pg/ml (0-20) H 02/10/23 20:32 B-Natriuretic Peptide 841 pg/ml (0-100) H 02/10/23 18:13 Total Protein 7.4 gm/dl (6.0-8.3) 02/10/23 18:00 Albumin 3.9 gm/dl (3.4-5.0) 02/10/23 18:00 Globulin 3.5 gm/dl (2.5-4.0) 02/10/23 18:00 Albumin/Globulin Ratio 1.1 (0.9-2) 02/10/23 18:00 TSH 3.563 uIu/ml (0.300-4.500) 02/10/23 18:00 Urine Color Yellow 02/10/23 18:00 Urine Appearance Clear (Clear) 02/10/23 18:00 Urine pH 7.0 (4.5-7.5) 02/10/23 18:00 Ur Specific [place] 1.012 (1.000-1.030) 02/10/23 18:00 Urine Protein Negative (Negative) 02/10/23 18:00 Urine Glucose (UA) Negative (Negative) 02/10/23 18:00 Urine Ketones Negative (Negative) 02/10/23 18:00 Urine Blood Trace (Negative) H 02/10/23 18:00 Urine Nitrite Negative (Negative) 02/10/23 18:00 Urine Bilirubin Negative (Negative) 02/10/23 18:00 Urine Urobilinogen Negative (Negative) 02/10/23 18:00 Ur Leukocyte Esterase Negative (Negative) 02/10/23 18:00 Urine WBC (Auto) 1-5 /hpf (0-5) 02/10/23 18:00 Urine RBC (Auto) 5-10 /hpf (0-4) H 02/10/23 18:00 U Hyaline Cast (Auto) 0 /lpf (0-5) 02/10/23 18:00 U Epithel Cells (Auto) 5-10 /lpf (0-5) H 02/10/23 18:00 Urine Bacteria (Auto) Negative (Negative) 02/10/23 18:00 SARS-CoV-2, RNA, NAAT NEGATIVE (NEGATIVE) 02/10/23 19:30 Impressions Chest X-Ray 02/10/23 18:13 XR chest 1V portable CLINICAL HISTORY: Shortness of breath. COMPARISON STUDY: Chest radiograph July 09, [address] July 23, 2022. FINDINGS: There are median sternotomy wires and prosthetic cardiac valve. Cardiomegaly is unchanged. There is mild interstitial thickening. No pneumo thorax or pleural effusion is present. No consolidation is identified. Severe osteoarthritis of the right glenohumeral joint is incidentally noted. IMPRESSION: Stable cardiomegaly. Interstitial thickening which favors mild pulmonary edema. An infectious process is considered less likely. ACT 112: Negative or not required by law. Electronically signed by: Lucas Li M.D. 02/10/2023 6:[address] 02/10/23 18:13 CT OF THE HEAD WITHOUT CONTRAST CLINICAL HISTORY: Fall. COMPARISON STUDY: Head CT July 23, 2022. CT DOSE: 703.85 mGy.cm TECHNIQUE: Helical axial images of the head were obtained without IV contrast. Automated exposure control was utilized for the study. A dose lowering technique was utilized adhering to the principles of ALARA. FINDINGS: This study is mildly compromised by motion artifact. No acute intracranial hemorrhage, midline shift or mass effect is present. The ventricular system is stable. 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 White matter hypodensities are similar to prior exam and favor small vessel disease. The basal cisterns are patent. No extra-axial collections are present. There are no findings to suggest acute dural sinus thrombosis or acute territorial infarct. No significant calvarial abnormalities are present. Visualized portions of the sinuses and mastoid air cells are clear. IMPRESSION: 1. No acute intracranial findings. No change in appearance of the brain. 2. No calvarial fractures. ACT 112: Negative or not required by law. Electronically signed by: Lucas Li M.D. 02/10/2023 6:42 PM Resident Activity Tracking Resident Involvement: Resident Care Provided Care Provided: Adult [facility]
[2023-02-11] MEDS ORDERED: ACETAMINOPHEN 325 MG TAB PO PRN (00:37)
[2023-02-11] MEDS ORDERED: ONDANSETRON 4 MG OD TAB PO PRN (00:37)
[2023-02-11] MEDS ORDERED: POLYETHYLENE (MIRALAX) 17 GM PACK PO PRN (00:37)
[2023-02-11] MEDS: ALBUT/IPRATROP 3MG/0.5MG NEB 3 ML VIAL NEB SCH ×6 (02:17→23:06)
[2023-02-11 03:39] LABS: Basophils # (auto) 0.03 K/uL (0-0.2); Basophils % (auto) 0.3 %; Eosinophils # (auto) 0.26 K/uL (0-0.50); Eosinophils % (auto) 2.5 %; Hematocrit (blood only) 30.6 % (42.0-52.0); Hemoglobin 9.1 g/dl (14.0-18.0); Immature Granulocytes # (auto) 0.05 K/uL (0.01-0.20); Immature Granulocytes % (auto) 0.5 %; Lymphocytes # (auto) 0.51 K/uL (1.2-3.4); Lymphocytes % (auto) 4.8 %; Mean Corpuscular Hemoglobin 20.3 pg (25.0-34.0); Mean Corpuscular Hgb Conc 29.7 g/dL (32.0-36.0); Mean Corpuscular Volume 68.2 fL (80.0-100.0); Monocytes # (auto) 0.93 K/uL (0.11-0.59); Monocytes % (auto) 8.8 %; Neutrophils # (auto) 8.83 K/uL (1.40-6.50); Neutrophils % (auto) 83.1 %; RDW Coefficient of Variation 20.8 % (11.5-14.5); RDW Standard Deviation 48.8 fL (36.4-46.3); Red Blood Count 4.49 M/uL (4.70-6.10); White Blood Count 10.61 K/ul (4.8-10.8)
[2023-02-11 03:54] LABS: Albumin Globulin Ratio 1.1 (0.9-2); Albumin Level 3.5 gm/dl (3.4-5.0); Bilirubin,Total 1.2 mg/dl (0.2-1.0); Calcium 8.8 mg/dl (8.6-10.3); Creatinine Clr Calc Pharmacy 66.3 ml/min; Est GFR (African American) 93.8 ml/min; Est GFR (Non-African American) 80.9 ml/min; Globulin 3.3 gm/dl (2.5-4.0); Magnesium 2.1 mg/dl (1.7-2.4); Potassium 3.7 mmol/L (3.5-5.1); Total Protein 6.8 gm/dl (6.0-8.3)
[2023-02-11 04:05] LABS: INR 2.6 (0.9-1.1)
[2023-02-11 04:11] LABS: Anisocytosis Present; Hypochromasia Present; Microcytosis Present; Ovalocytes 1+; Platelet Count 239 K/uL (130-400); Tear Drop Cells 1+
[2023-02-11 04:13] LABS: Ferritin 16.9 ng/ml (8-388)
[2023-02-11] MEDS: METOPROLOL SUCC 25MG EXT REL TAB PO SCH (08:56)
[2023-02-11] MEDS: FLUTICASONE PROPIONATE NA SPR 16 GM BTL SCH (08:56)
[2023-02-11] MEDS: ROSUVASTATIN CALCIUM 20 MG TAB PO SCH (08:57)
[2023-02-11] MEDS: GABAPENTIN 100 MG CAP PO SCH ×2 (08:57→20:12)
[2023-02-11] MEDS: DOCUSATE SODIUM 100 MG CAP PO SCH ×2 (08:57→20:12)
[2023-02-11] MEDS: SERTRALINE HCL 50 MG TABLET PO SCH (08:57)
[2023-02-11] MEDS ORDERED: FUROSEMIDE INJ 20 MG/2 ML VIAL IV ONE (09:00)
[2023-02-11] MEDS ORDERED: TORSEMIDE 10 MG TAB PO SCH (09:00)
[2023-02-11] MEDS ORDERED: metOLazone 5 MG TABLET PO SCH (09:00)
[2023-02-11] MEDS: FUROSEMIDE 40 MG/4 ML VIAL IV SCH ×2 (09:02→20:13)
--- NOTE | 2023-02-11 09:09 | Cardiology Consultation ---
Date of Consultation February 11, 2023 Assessment & Plan (1) Ischemic cardiomyopathy: (2) Acute on chronic HFrEF (heart failure with reduced ejection fraction): (3) Elevated troponin: (4) Iron deficiency anemia: (5) Permanent atrial fibrillation: (6) Rheumatic heart disease: (7) S/P AVR: Plan IMPRESSION: Medically complex 87 year old male with history of ischemic cardiomyopathy, LVEF around 35-40%, now further reduced in the range of 25-30%. Patient without chest pain, but having progressive dyspnea in the setting of volume overload. TAMI noted on blood work- receiving IV Iron. HS troponin mildly elevated, flat- likely due to demand. PLAN: -Continue diuresis with IV Lasix 60 mg BID. -Follow renal function, K goal of 4.0 and mag goal of 2.0- replete as needed. -Supplemental o2 as needed -CHF education -Continue evidence based beta quinn, metoprolol succinate 25 mg daily- may need to reduce given bradycardia on telemetry. Will monitor on tele while inpatient. -Obtain orthostatics. -Recommend treatment of underlying TAMI, goal hemoglobin of >10 given HFrEF. -Continue Coumadin, INR goal between 2.5-3.5 given mechanical AVR. Case discussed with Dr. Ramos- will monitor. Supervising Physician Co-Signing Physician Notes Patient seen and examined, chart, medications, telemetry reviewed. Assessment and plan as outlined above. Longstanding history of ischemic heart disease and prior aortic valve replacement with declining overall functional capacity over the past 1 years time. Had an extensive injury following a fall in June 2022 complicated by large intravascular hematoma later presenting with abdominal abscess. Now with increasing dyspnea gait instability increasing diuretic demands Echocardiogram demonstrates decline in overall systolic function but similar wall motion abnormalities in prior echocardiogram done June 2022 Plan as above given recent infectious process and falls, possible orthostasis blood cultures ordered History of Present Illness Reason for Consultation: Acute on chronic HFrEF Requesting Physician: Lolis lynch Attending Physician: Dusty Lopes MD History of Present Illness Medically complex 87-year-old male who initially presented to [facility] emergency department after an unwitnessed fall. Patient resides at the [facility] at the [facility]. Patient carries a history of ischemic cardiomyopathy with most recent LVEF of 35 to 39% per outpatient echo dated 06/2022. Patient noted shortness of breath x3 weeks. Chest x-ray revealed mild pulmonary edema. Per out-patient nursing records- patient normally maintained on 40 mg of torsemide daily and metolazone 5 mg every Saturday. Was given IV Lasix 20 mg in the ED. Now receiving IV Lasix 60 mg BID while admitted. Labs: Mild anemia with a hemoglobin of 9.7>> 9.1. Iron deficiency anemia noted on blood work- IV Iron supplementation started. Renal function stable, potassium within normal limits. INR 2.6 (goal 2.5-3.5 given mechanical AVR). High-sensitivity troponin minimally elevated and flat (25.9>>29.8>>26.5). BNP elevated (841>>747). ECHO: LVEF ~25-30%. AVR presents and function with stable gradients. Moderate- severe MR, Mild to moderate TR. TELE: AFIB 50-70s. I&O: -630 mL WEIGHT: 92.3 kg >> 80.9 kg Upon entrance into the room patient resting in bed. No acute distress. Poor historian, admits to forgetfulness at times. Notes an improvement in his breathing since admission- still requiring supplemental o2 (does not normally use as an outpatient). +Mild orthopnea. +Dry nonproductive cough. No lower extremity edema or lower extremity edema. Notes progressive weakness. No current lightheadedness/dizziness. No chest pain, or palpitations. 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, on Coumadin, 2002 at time of CABG Permanent atrial fibrillation Enlargement of the ascending aorta Hypertension Hyperlipidemia IVCD History of chronic osteomyelitis of the right heel, medical management, not a surgical candidate Allergies Allergy/AdvReac Type Severity Reaction Status Date / Time Sulfa (Sulfonamide AdvReac Intermediate Unknown Verified 01/30/23 08:35 Antibiotics) Home Medications Medication Instructions Recorded Confirmed Type vitamin B complex 1 tab PO DAILY 05/11/22 02/10/23 History acetaminophen 500 mg tablet 500 mg PO Q4 PRN Pain 08/08/22 02/10/23 History diphenhydramine HCl 25 mg tablet 25 mg PO Q6 PRN Itching 08/08/22 02/10/23 History (Benadryl Allergy) sodium chloride-aloe vera nasal 1 applic topical QID PRN nasal 08/08/22 02/10/23 History gel ([place] Saline nasal gel) dryness albuterol sulfate 2.5 mg/3 mL 2.5 mg inhalation Q2H PRN Wheezing 02/10/23 02/10/23 History (0.083 %) solution for nebulization carboxymethylcellulose sodium 1 % 2 drp OPB 4XD PRN Dry Eyes 02/10/23 02/10/23 History eye liquid gel drops docusate sodium 100 mg capsule 100 mg PO BID 02/10/23 02/10/23 History (Colace) fluticasone propionate 50 50 mcg intranasal DAILY 02/10/23 02/10/23 History mcg/actuation nasal spray,suspension gabapentin 100 mg tablet 200 mg PO BID 02/10/23 02/10/23 History hydrocortisone 1 % topical cream 1 applic topical BID PRN Itching 02/10/23 02/10/23 History melatonin 3 mg tablet 3 mg PO HS PRN Insomnia 02/10/23 02/10/23 History metolazone 5 mg tablet See Rx Instructions .Route .COMPLEX 02/10/23 02/10/23 History metoprolol succinate 25 mg PO DAILY 02/10/23 02/10/23 History metoprolol succinate 25 mg mg PO 02/10/23 History tablet,extended release 24 hr multivitamin 1 tab PO DAILY 02/10/23 02/10/23 History polyethylene glycol 3350 17 17 g PO DAILY PRN Constipation 02/10/23 02/10/23 History gram/dose oral powder (Miralax) rosuvastatin 20 mg tablet 20 mg PO DAILY 02/10/23 02/10/23 History sertraline 50 mg tablet 50 mg PO DAILY 02/10/23 02/10/23 History torsemide 40 mg tablet 40 mg PO DAILY 02/10/23 02/10/23 History warfarin 5 mg tablet 5 mg PO Q OTHER DAY 02/10/23 02/10/23 History warfarin 7.5 mg tablet 7.5 mg PO Q OTHER DAY 02/10/23 02/10/23 History Patient History Medical History Abnormal ENT evaluation Acute cholangitis due to calculus of bile duct with obstruction Acute cholecystitis Acute metabolic encephalopathy Aortic valve disease 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 Atrial fibrillation permanent Atrial fibrillation On Coumadin - rate controlled per cardio Black stool CAD (coronary artery disease) s/p CABG x5 (2002) CAD (coronary artery disease) S/p 5 vessel CABG Cholangitis Cholelithiasis Chronic atrial fibrillation Chronic systolic (congestive) heart failure Improved volume status and dyspnea with initiation of diuretic per 09/2020 cardio records Cranial nerve palsy CVA (cerebral vascular accident) Per records dating back to 2014, patient denies Depression DVT prophylaxis Encounter for pre-operative examination Encounter for pre-operative examination GERD (gastroesophageal reflux disease) HTN (hypertension) Hyperlipidemia Intraventricular conduction delay Chronic per records Ischemic cardiomyopathy Mild decline in LVEF per 09/2020 ECHO (EF 25-30%) Memory deficits Surgical History Aortic valve replaced (during CABG- 2002) History of cholecystectomy History of hip surgery Right hip nailin07/03/20: Grade view 2, MAC#3, ETT 7.5 at [facility] S/P CABG x 5 2002 Status post incision and drainage Family History Unknown No problems noted. Father , 77 Myocardial infarction Brother Diabetes Social History Smoking Status: Former smoker Tobacco Type: Smokeless Tobacco (Dip or Chew) Second Hand Exposure: No; Do You Dip or Chew Tobacco: No; Tobacco Cessation Education Requested by Patient: No Hx Alcohol Use: Yes Alcohol type: beer and wine Hx Substance Use: No Preferred Language: Ugandan Communication Ability: Effective Visual Impairment: Diminished Hearing Ability: Normal Material Coordinator Required: No Beliefs That Will Affect Care: None marital status: / Current Living Situation[facility] Current Living Situation Comment: [facility] current occupational status: retired and disabled How many Children do You have: 2 Other Information That Helps Us Care for You: No Feels Safe at Home: Yes Safety Concerns: Feels Safe At This Time Diet: regular caffeine: Yes Physical Activity Frequency: Does not Exercise Do you think of yourself as: straight/heterosexual Gender Identity: Male Assistive Devices: Denture - Upper, Glasses, Hearing Aid - Bilateral and Walker Review of Systems Review of Systems: All systems reviewed & are unremarkable except as noted in HPI & below Physical Exam Constitutional: WD/WN, vitals as above no acute distress Neck: normal visual inspection and trachea midline Respiratory: + cough (+dry nonproductive) and + tachypneic; no respiratory distress and no labored breathing Auscultation: + rales and + wheezes; no rhonchi Cardiovascular: Rate/Rhythm: regular rate and + irregularly irregular Heart Sounds: normal S1, normal S2 and + murmur (+crisp mechanical valve closure, +2/6 systolic murmur) Vessels: no JVD Extremities: no edema Gastrointestinal (Abdomen): normal bowel sounds, soft, nontender, no hepatosplenomegaly Psychiatric: A+Ox3, euthymic affect (Forgetful) Results & Data Vital Signs (Past 12 Hours) Vital Signs Temp Pulse Pulse Pulse Resp BP Pulse Ox 02/11/23 07:31 59 L 02/11/23 07:21 66 14 97 02/11/23 04:00 36.6 C 70 18 129/74 98 02/11/23 00:35 59 L 02/11/23 02:17 67 20 96 02/11/23 00:30 02/11/23 00:30 37.0 C 73 20 120/71 96 02/11/23 00:24 37.0 C 73 20 120/71 96 02/11/23 00:04 02/10/23 23:09 63 17 143/87 H 94 02/10/23 22:00 70 02/10/23 21:11 78 22 131/85 96 O2 Del Method O2 Flow Rate 02/11/23 07:31 02/11/23 07:21 Nasal Cannula 1.5 02/11/23 04:00 Nasal Cannula 2 02/11/23 00:35 02/11/23 02:17 Nasal Cannula 2 02/11/23 00:30 Nasal Cannula 2 02/11/23 00:30 Nasal Cannula 2 02/11/23 00:24 Nasal Cannula 2 02/11/23 00:04 Nasal Cannula 2 02/10/23 23:09 Nasal Cannula 2 02/10/23 22:00 02/10/23 21:11 Nasal Cannula 2 Laboratory Results Cardiac Enzymes 02/10/23 02/10/23 02/10/23 Range/Units 18:00 18:13 20:32 AST 25 (13-39) U/L Troponin I High Sens 25.9 H 29.8 H (0-20) pg/ml B-Natriuretic Peptide 841 H (0-100) pg/ml 02/11/23 02/11/23 02/11/23 Range/Units 03:26 03:26 03:26 AST 25 (13-39) U/L Troponin I High Sens 26.5 H (0-20) pg/ml B-Natriuretic Peptide 747 H (0-100) pg/ml Coagulation 02/10/23 02/10/23 02/11/23 Range/Units 18:00 18:13 03:26 PT 36.5 H (9.0-12.0) Seconds B-Natriuretic Peptide 841 H 747 H (0-100) pg/ml 02/11/23 Range/Units 03:26 PT 27.0 H (9.0-12.0) Seconds B-Natriuretic Peptide (0-100) pg/ml CBC 02/10/23 02/11/23 Range/Units 18:00 03:26 WBC 13.08 H 10.61 (4.8-10.8) K/ul RBC 4.79 4.49 L (4.70-6.10) M/uL Hgb 9.7 L 9.1 L (14.0-18.0) g/dl Hct 33.1 L 30.6 L (42.0-52.0) % Plt Count 287 239 (130-400) K/uL Neut # (Auto) 11.25 H 8.83 H (1.40-6.50) K/uL Lymph # (Auto) 0.51 L 0.51 L (1.2-3.4) K/uL [place] # (Auto) 1.03 H 0.93 H (0.11-0.59) K/uL Eos # (Auto) 0.18 0.26 (0-0.50) K/uL Baso # (Auto) 0.05 0.03 (0-0.2) K/uL Comprehensive Metabolic Panel 02/10/23 02/11/23 Range/Units 18:00 03:26 Sodium 139 138 (136-145) mmol/L Potassium 4.4 3.7 (3.5-5.1) mmol/L Chloride 103 104 (98-107) mmol/L Carbon Dioxide 27 27 (21-32) mmol/L BUN 19 16 (6-23) mg/dl Creatinine 0.91 0.80 (0.6-1.4) mg/dl Glucose 100 H 100 H (70-99(Fasting)) mg/dl Calcium 9.2 8.8 (8.6-10.3) mg/dl AST 25 25 (13-39) U/L ALT 11 11 (7-52) U/L Alkaline Phosphatase 107 H 95 (34-104) U/L Total Protein 7.4 6.8 (6.0-8.3) gm/dl Albumin 3.9 3.5 (3.4-5.0) gm/dl Intake and Output 02/10/23 02/11/23 02/11/23 22:59 06:59 14:59 Intake Total 80 / 80 Output Total 260 / 710 450 / 710 Balance -260 / -630 -370 / -630 Intake: Oral 80 / 80 Output: Urine 260 / 710 450 / 710 Other: # Urine Diapers 1 Weight 92.3 kg 80.9 kg Weight Measurement Method Built in [facility] Built in [facility]
[2023-02-11] MEDS ORDERED: IRON SUCROSE 200 MG in 0.9 % SODIUM CHLORIDE 100 ML IV ONE (09:15)
--- NOTE | 2023-02-11 14:58 | Hospitalist Progress Note ---
Date of Service February 11, 2023 Assessment & Plan (1) Acute on chronic HFrEF (heart failure with reduced ejection fraction): Plan: Improved. Continue Lasix diuresis. Appreciate cardiology consultation and recommendations. Repeat portable chest x-ray tomorrow, February 12. Wean oxygen off as tolerated. Continue current medical management. (2) Elevated troponin: Plan: Due to supplydemand mismatch. No evidence of acute coronary syndrome (3) Iron deficiency anemia: Plan: Probably from chronic GI blood loss is associated with Coumadin. No overt melena or hematochezia. Parenteral iron supplementation underway. Continue oral iron replacement at discharge (4) Permanent atrial fibrillation: Plan: Rate controlled. Continue Coumadin anticoagulation. Telemetry (5) Rheumatic heart disease: Plan: Status post mechanical aortic valve replacement. (6) Ischemic cardiomyopathy: Plan: History of coronary artery bypass grafting in the past. No evidence of acute coronary syndrome. Continue current medical management (7) Fall: Plan: Mechanical. No fractures. Plan Eventual return to SNF. Possibly February 12 or February 13 Admission and Anticipated Discharge Date Admission Date: February 10, 2023 Subjective Alert and oriented. No new problems. Cardiac echo reveals ejection fraction of 25% which is not changed. Oxygen needs are 2 L which will eventually be weaned off. He does not use oxygen at home. INR 2.6 today. We will repeat chest x- ray tomorrow. Iron deficiency noted. Parenteral iron replacement started. He will eventually return to his SNF facility later this week. Possibly tomorrowFebruary 12 Review of Systems Review of Systems: Constitutional-no fever or chills ENT-no blurred vision, no double vision, no epistaxis, no sore throat Respiratory-no cough, no wheezing. Short of breath with exertion Cardiac-no palpitations, no chest pain, no syncope GI-no nausea, vomiting, diarrhea, melena, hematochezia -no urinary retention, no urinary incontinence, no dysuria, no hematuria Musculoskeletal-no joint pain, no muscle tenderness Skin-no bruising, no rashes, no pruritus Neuro-no isolated weakness, no paresthesia, no weakness Psych-no depression, no anxiety Physical Exam Physical Exam: General-alert and oriented x3, no fevers, no chills HEENT-head atraumatic and normocephalic, pupils equal and reactive to light, extraocular muscles intact Neck-no lymphadenopathy or thyromegaly, trachea midline Chest-faint bibasilar inspiratory rales. No wheezing Cardiac-irregular. Controlled rate. Systolic mechanical valve murmur Abdomen-normal bowel sounds, nontender, no hepatosplenomegaly Extremities-no peripheral edema noted Neuro-cranial nerves II through XII intact, motor and sensory function within normal limits, strength symmetrical , no focal deficits Psych-normal affect, normal mood Results & Data Results & Data Vital Signs (Past 12 Hours) Vital Signs Temp Pulse Pulse Resp BP Pulse Ox O2 Del Method 02/11/23 14:48 62 02/11/23 12:09 36.7 C 65 20 111/68 96 Room Air 02/11/23 12:09 60 18 95 Nasal Cannula 02/11/23 11:00 36.6 C 56 L 18 113/70 97 Nasal Cannula 02/11/23 08:45 Nasal Cannula 02/11/23 07:31 59 L 02/11/23 07:21 66 14 97 Nasal Cannula 02/11/23 04:00 36.6 C 70 18 129/74 98 Nasal Cannula O2 Flow Rate 02/11/23 14:48 02/11/23 12:09 02/11/23 12:09 1.5 02/11/23 11:00 2 02/11/23 08:45 2 02/11/23 07:31 02/11/23 07:21 1.5 02/11/23 04:00 2 Laboratory Results 02/11/23 03:26 02/11/23 03:26 PG Care Time/CCT Total # of Minutes Spent Total Time Spent with Patient: Total time spent is greater than 50% in coordination of care (as documented) at patient's floor/unit and/or counseling patient: Coding Level of Care Code 16342 SUB INP/OBS CARE 3/50MIN Diagnoses Acute on chronic HFrEF (heart failure with reduced ejection fraction) I50.23 Elevated troponin R77.8 Iron deficiency anemia D50.9 Permanent atrial fibrillation I48.21 Rheumatic heart disease I09.9 Ischemic cardiomyopathy I25.5 Fall W19.XXXA
[2023-02-11] MEDS ORDERED: WARFARIN SOD 5 MG TAB PO SCH (16:00)
[2023-02-11] MEDS: MELATONIN 3 MG TAB PO SCH (20:12)
[2023-02-12] MEDS: ALBUT/IPRATROP 3MG/0.5MG NEB 3 ML VIAL NEB SCH ×6 (02:33→23:34)
--- NOTE | 2023-02-12 07:20 | Cardiology Progress Note ---
Date of Service February 12, 2023 Assessment & Plan (1) Ischemic cardiomyopathy: (2) Acute on chronic HFrEF (heart failure with reduced ejection fraction): (3) Elevated troponin: (4) Iron deficiency anemia: (5) Permanent atrial fibrillation: (6) Rheumatic heart disease: (7) S/P AVR: Plan IMPRESSION: Medically complex 87 year old male with history of ischemic cardiomyopathy, LVEF around 35-40%, now further reduced in the range of 25-30% with increase in diuretic requirements Patient without chest pain, but having progressive dyspnea in the setting of volume overload on initial presentation. Volume status improving with IV diuresis. TAMI noted on blood work- receiving IV Iron. HS troponin mildly elevated, flat- likely due to demand. No evidence of ACS. PLAN: -Continue diuresis with IV Lasix 60 mg BID. -Hold Metolazone, will titrate IV Lasix given orthostasis documented yesterday. Considerations of increased torsemide dosage rather than utilization of metolazone as an outpatient. -Follow renal function, K goal of 4.0 and mag goal of 2.0- replete as needed. KCL supplementation started this morning. BMP in the AM. -Supplemental o2 as needed, wean as tolerated. -CHF education -Continue evidence based beta quinn, metoprolol succinate 25 mg daily. Monitor on telemetry -Recommend treatment of underlying TAMI, goal hemoglobin of >10 given HFrEF. -Continue Coumadin, INR goal between 2.5-3.5 given mechanical AVR. -Consider PT/OT eval prior to discharge. Case discussed with Dr. Ramos- will monitor. Admission and Anticipated Discharge Date Admission Date: February 10, 2023 Supervising Physician Co-Signing Physician Notes Patient seen and examined. Evaluation as above. Complex 87-year-old male with increasing frailty, underlying ischemic cardiomyopathy decompensated systolic heart failure. Underlying prior valve replacement coronary bypass grafting Management of heart failure has been difficult with variable blood pressure and orthostasis in the recent past. Plan as outlined above. Agree with iron infusion We will add spironolactone 25 mg daily. Continue to hold metolazone LV dysfunction as noted mild decline in comparison to prior studies. Would not consider referral for pacer defibrillator at this time but could consider BiV pacer in future. Overall frailty and life expectancy may influence decision Subjective Medically complex 87-year-old male with longstanding history of ischemic heart disease and prior aortic valve replacement with declining overall functional capacity and frequent falls over the last year. Presented to the [facility] emergency department this admission due to increasing dyspnea with exertion, gait instability, and increasing diuretic demands. Echocardiogram demonstrated further decline in overall systolic function with an LVEF of 25 to 30%, wall motion abnormality similar in prior echo dated 06/2022. 02/11: Patient diuresed with IV Lasix 60 mg twice daily. Received 5 mg of metolazone. Requiring supplemental oxygen on admission. TAMI noted and started on IV iron replacement. Orthostatic vital signs were obtained: Lying 133/66, 72. Sitting 115/58, 65. Standing 114/65, 69. 02/12: Upon entrance into the room patient asleep in bed, woke easily. No acute concerns. overall breathing improved compared to yesterday. Will with mild orthopnea. Requiring supplemental o2. Notes ongoing weakness with ambulation. No lower extremity edema. Notes frequent urination. TELE: AFIB 60-80s, occasional PVCs. I&O: -2.5L WEIGHT: 92.3 kg >> 80.9 kg>>77.9 kg Labs: Renal function stable. Hypokalemia noted- Potassium 3.1. KCL s upplementation started. Blood cultures pending. Review of Systems Review of Systems: All systems reviewed & are unremarkable except as noted in HPI & below Physical Exam Constitutional: WD/WN, vitals as above no acute distress Neck: normal visual inspection and trachea midline Respiratory: + cough (+dry nonproductive); no respiratory distress, no labored breathing and not tachypneic Auscultation: + rales (BL bases ) and + wheezes (intermittent expiratory ); no rhonchi Cardiovascular: Rate/Rhythm: regular rate and + irregularly irregular Heart Sounds: normal S1, normal S2 and + murmur (+crisp mechanical valve closure, +2/6 systolic murmur) Vessels: no JVD Extremities: no edema Gastrointestinal (Abdomen): normal bowel sounds, soft, nontender, no hepatosplenomegaly Psychiatric: A+Ox3, euthymic affect (Forgetful) Results & Data Vital Signs (Past 12 Hours) Vital Signs Temp Pulse Pulse Resp BP Pulse Ox O2 Del Method 02/12/23 06:00 69 02/12/23 03:17 36.3 C L 79 22 136/74 97 Nasal Cannula 02/11/23 23:32 36.5 C 80 20 124/73 93 Nasal Cannula 02/11/23 23:06 68 19 97 Nasal Cannula 02/11/23 22:59 74 02/11/23 21:37 Nasal Cannula 02/11/23 19:52 36.7 C 66 20 119/73 93 Nasal Cannula 02/11/23 19:44 78 16 92 Nasal Cannula O2 Flow Rate 02/12/23 06:00 02/12/23 03:17 1.5 02/11/23 23:32 1.5 02/11/23 23:06 1.5 02/11/23 22:59 02/11/23 21:37 1.5 02/11/23 19:52 1.5 02/11/23 19:44 1.5 Laboratory Results Cardiac Enzymes 02/11/23 02/11/23 Range/Units 10:03 16:18 Troponin I High Sens 21.3 H 23.1 H (0-20) pg/ml Coagulation 02/12/23 Range/Units 06:42 PT 23.8 H (9.0-12.0) Seconds Comprehensive Metabolic Panel 02/12/23 Range/Units 06:42 Sodium 136 (136-145) mmol/L Potassium 3.1 L (3.5-5.1) mmol/L Chloride 99 (98-107) mmol/L Carbon Dioxide 29 (21-32) mmol/L BUN 15 (6-23) mg/dl Creatinine 0.64 (0.6-1.4) mg/dl Glucose 93 (70-99(Fasting)) mg/dl Calcium 9.1 (8.6-10.3) mg/dl Intake and Output 02/11/23 02/12/23 02/12/23 22:59 06:59 14:59 Intake Total 520 / 1390 Output Total 1450 / 3250 Balance -930 / -1860 Intake: Oral 520 / 1280 Output: Urine 1450 / 3250 Other: # Unmeasured Voids 2 Weight 77.9 kg 75.795 kg Weight Measurement Method [facility] Patient Weight 02/13/23 06:59 Weight 75.795 kg
[2023-02-12 07:38] LABS: INR 2.3 (0.9-1.1); Prothrombin Time 23.8 Seconds (9.0-12.0)
[2023-02-12 07:55] LABS: BUN Creatinine Ratio 23.4 (10-20); Calcium 9.1 mg/dl (8.6-10.3); Creatinine Clr Calc Pharmacy 82.9 ml/min; Est GFR (African American) 102.8 ml/min; Est GFR (Non-African American) 88.7 ml/min; Potassium 3.1 mmol/L (3.5-5.1)
--- NOTE | 2023-02-12 08:15 | XRay Report ---
XR chest 1V portable CLINICAL HISTORY: CHF TECHNIQUE: Single frontal radiograph of the chest was obtained. Comparison: Comparison is made to chest radiograph 02/10/2023 FINDINGS: Median sternotomy wires are unchanged. Cardiomegaly is noted. The aortic arch is calcified. Prominenc e and cephalization of the vasculature is seen. No evidence of pleural effusion or pneumothorax. IMPRESSION: Cardiomegaly and mild pulmonary edema. ACT 112: Negative or not required by law. Electronically signed by: Jed Jackson M.D. 02/12/2023 8:12 AM
--- NOTE | 2023-02-12 08:21 | Electrocardiogram Report ---
Test Reason : Blood Pressure : / mmHG Vent. Rate : 083 BPM Atrial Rate : 000 BPM P-R Int : 000 ms QRS Dur : 158 ms QT Int : 428 ms P-R-T Axes : 000 269 099 degrees QTc Int : 502 ms Atrial fibrillation Left bundle branch block Abnormal ECG When compared with ECG of 23-JUL-2022 20:07, No significant change Confirmed by Neville Perdomo ([id number]) on 02/12/2023 8:21:49 AM Referred By: REFERRED SELF Confirmed By:Neville Perdomo
[2023-02-12] MEDS: FLUTICASONE PROPIONATE NA SPR 16 GM BTL SCH (08:25)
[2023-02-12] MEDS: FUROSEMIDE 40 MG/4 ML VIAL IV SCH ×2 (08:26→20:01)
[2023-02-12] MEDS: ROSUVASTATIN CALCIUM 20 MG TAB PO SCH (08:27)
[2023-02-12] MEDS: SERTRALINE HCL 50 MG TABLET PO SCH (08:27)
[2023-02-12] MEDS: DOCUSATE SODIUM 100 MG CAP PO SCH ×2 (08:27→20:01)
[2023-02-12] MEDS: METOPROLOL SUCC 25MG EXT REL TAB PO SCH (08:27)
[2023-02-12] MEDS: GABAPENTIN 100 MG CAP PO SCH ×2 (08:27→20:01)
[2023-02-12] MEDS ORDERED: POTASSIUM CHLORIDE CRTAB 20 MEQ TABCR PO SCH (09:00)
[2023-02-12] MEDS ORDERED: POTASSIUM CHLORIDE CRTAB 20 MEQ TABCR PO STA (09:11)
[2023-02-12] MEDS ORDERED: IRON SUCROSE 200 MG in 0.9 % SODIUM CHLORIDE 100 ML IV ONE (09:30)
--- NOTE | 2023-02-12 12:35 | Hospitalist Progress Note ---
Date of Service February 12, 2023 Assessment & Plan (1) Acute on chronic HFrEF (heart failure with reduced ejection fraction): Plan: Improved. Continue Lasix diuresis. Appreciate cardiology consultation and recommendations. Wean oxygen off as tolerated. Continue current medical management. (2) Elevated troponin: Plan: Due to supplydemand mismatch. No evidence of acute coronary syndrome (3) Iron deficiency anemia: Plan: Probably from chronic GI blood loss is associated with Coumadin. No overt melena or hematochezia. Parenteral iron supplementation underway. Continue oral iron replacement at discharge (4) Permanent atrial fibrillation: Plan: Rate controlled. Continue Coumadin anticoagulation. Telemetry (5) Rheumatic heart disease: Plan: Status post mechanical aortic valve replacement. (6) Ischemic cardiomyopathy: Plan: History of coronary artery bypass grafting in the past. No evidence of acute coronary syndrome. Continue current medical management (7) Fall: Plan: Mechanical. No fractures. Plan Eventual return to SNF. Possibly tomorrow, February 13 Admission and Anticipated Discharge Date Admission Date: February 10, 2023 Subjective Alert and oriented. No new complaints. He continues to have brisk diuresis with intravenous Lasix. Oxygen requirement is down to 1 L. Potassium replacement underway for hypokalemia. He will receive day 2 of parenteral iron replacement today, February 12. INR 2.3 today. [facility]. He may need supplemental oxygen for a while. Review of Systems Review of Systems: Constitutional-no fever or chills ENT-no blurred vision, no double vision, no epistaxis, no sore throat Respiratory-no cough, no wheezing. Dyspnea on exertion Cardiac-no palpitations, no chest pain, no syncope GI-no nausea, vomiting, diarrhea, melena, hematochezia -no urinary retention, no urinary incontinence, no dysuria, no hematuria Musculoskeletal-no joint pain, no muscle tenderness Skin-no bruising, no rashes, no pruritus Neuro-no isolated weakness, no paresthesia, no weakness Psych-no depression, no anxiety Physical Exam Physical Exam: General-alert and oriented x3, no fevers, no chills HEENT-head atraumatic and normocephalic, pupils equal and reactive to light, extraocular muscles intact Neck-no lymphadenopathy or thyromegaly, trachea midline Chest-bibasilar inspiratory rales. No dullness to percussion. No wheezing Cardiac-irregular rhythm. Controlled rate. Normal S1 and S2 Abdomen-normal bowel sounds, nontender, no hepatosplenomegaly Extremities-no peripheral edema noted Neuro-cranial nerves II through XII intact, motor and sensory function within normal limits, strength symmetrical with chronic weakness consistent with age , no focal deficits Psych-normal affect, normal mood Results & Data Results & Data Vital Signs (Past 12 Hours) Vital Signs Temp Pulse Pulse Resp BP Pulse Ox O2 Del Method 02/12/23 11:00 36.6 C 76 20 155/84 H 95 Nasal Cannula 02/12/23 11:12 75 20 95 Room Air 02/12/23 08:20 136/79 02/12/23 07:45 36.4 C L 71 18 94/64 L 97 Nasal Cannula 02/12/23 07:35 Nasal Cannula 02/12/23 07:21 54 L 20 92 Nasal Cannula 02/12/23 06:00 69 02/12/23 03:17 36.3 C L 79 22 136/74 97 Nasal Cannula O2 Flow Rate 02/12/23 11:00 1.5 02/12/23 11:12 1 02/12/23 08:20 02/12/23 07:45 1 02/12/23 07:35 1.5 02/12/23 07:21 1.5 02/12/23 06:00 02/12/23 03:17 1.5 Laboratory Results 02/11/23 03:26 02/12/23 06:42 PG Care Time/CCT Total # of Minutes Spent Total Time Spent with Patient: Total time spent is greater than 50% in coordination of care (as documented) at patient's floor/unit and/or counseling patient: Coding Level of Care Code 17982 SUB INP/OBS CARE 3/50MIN Diagnoses Acute on chronic HFrEF (heart failure with reduced ejection fraction) I50.23 Elevated troponin R77.8 Iron deficiency anemia D50.9 Permanent atrial fibrillation I48.21 Rheumatic heart disease I09.9 Ischemic cardiomyopathy I25.5 Fall W19.XXXA
[2023-02-12] MEDS: SPIRONOLACTONE 25 MG TAB PO SCH (15:34)
[2023-02-12] MEDS ORDERED: WARFARIN SOD 7.5 MG TAB PO SCH (16:00)
[2023-02-12] MEDS: ISOSORBIDE DINITRATE 10 MG TAB PO SCH (18:28)
[2023-02-12] MEDS: MELATONIN 3 MG TAB PO SCH (20:01)
[2023-02-13] MEDS: ALBUT/IPRATROP 3MG/0.5MG NEB 3 ML VIAL NEB SCH ×3 (05:05→11:12)
[2023-02-13 07:04] LABS: BUN Creatinine Ratio 21.5 (10-20); Calcium 9.2 mg/dl (8.6-10.3); Creatinine Clr Calc Pharmacy 67.1 ml/min; Est GFR (African American) 94.2 ml/min; Est GFR (Non-African American) 81.3 ml/min; Potassium 3.3 mmol/L (3.5-5.1)
[2023-02-13] MEDS: ISOSORBIDE DINITRATE 10 MG TAB PO SCH ×2 (07:08→11:29)
[2023-02-13 07:29] LABS: INR 2.8 (0.9-1.1); Prothrombin Time 28.6 Seconds (9.0-12.0)
[2023-02-13] MEDS: FLUTICASONE PROPIONATE NA SPR 16 GM BTL SCH (08:44)
[2023-02-13] MEDS: FUROSEMIDE 40 MG/4 ML VIAL IV SCH (08:44)
[2023-02-13] MEDS: SPIRONOLACTONE 25 MG TAB PO SCH (08:46)
[2023-02-13] MEDS: DOCUSATE SODIUM 100 MG CAP PO SCH (08:46)
[2023-02-13] MEDS: SERTRALINE HCL 50 MG TABLET PO SCH (08:46)
[2023-02-13] MEDS: ROSUVASTATIN CALCIUM 20 MG TAB PO SCH (08:46)
[2023-02-13] MEDS: METOPROLOL SUCC 25MG EXT REL TAB PO SCH (08:46)
[2023-02-13] MEDS: GABAPENTIN 100 MG CAP PO SCH (08:46)
[2023-02-13] MEDS ORDERED: IRON SUCROSE 200 MG in 0.9 % SODIUM CHLORIDE 100 ML IV ONE (10:30)
--- NOTE | 2023-02-13 11:34 | Discharge Summary ---
Date of Service February 13, 2023 Admission HPI Per Admitting Provider 87 yo male with PMHx of CHF, pressure ulcer R heel, depression, ischemic cardiomyopathy, HTN, HLD, GERD, CAD s/p CABG, 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 [facility] Earlier today he was found on the ground laying on his left side near his walker. This was a presumed unwitnessed fall. He states that he felt a little dizzy which is what caused him to fall. This is happened to him about 5 times over the past couple of years. Per nursing staff patient did appear a bit altered at time of evaluation. He has associated shortness of breath which she states he has been experiencing for the past few weeks. Denies loss of consciousness, headache, fevers, chest pain, visual changes, abdominal pain, nausea, vomiting, dysuria, constipation, diarrhea, musculoskeletal pain. He follows with [facility] cardiology for his chronic heart conditions. He also sees wound care weekly for a pressure ulcer on his right heel which was debrided in 2021 as well as a surgical wound on his right abdomen which is now healed. Right foot CT in October 2022 demonstrated chronic osteomyelitis versus reactive osteitis of the heel however case was discussed and patient not a surgical candidate at this time. Principal Diagnosis Acute on chronic systolic congestive heart failure, acute hypoxic respiratory failure, hypokalemia, iron deficiency anemia Discharge Exam General-alert and oriented x3, no fevers, no chills HEENT-head atraumatic and normocephalic, pupils equal and reactive to light, extraocular muscles intact Neck-no lymphadenopathy or thyromegaly, trachea midline Chest-bibasilar inspiratory rales have resolved. No dullness to percussion. No wheezing Cardiac-irregular rhythm. Controlled rate. Normal S1 and S2 Abdomen-normal bowel sounds, nontender, no hepatosplenomegaly Extremities-no peripheral edema noted Neuro-cranial nerves II through XII intact, motor and sensory function within normal limits, strength symmetrical with chronic weakness consistent with age , no focal deficits Psych-normal affect, normal mood Discharge Data Allergies Allergy/AdvReac Type Severity Reaction Status Date / Time Sulfa (Sulfonamide AdvReac Intermediate Unknown Verified 01/30/23 08:35 Antibiotics) Consultations 02/10/23 19:48 ED Decision to Admit Stat 02/10/23 23:06 Consult Cardiology Routine Ordered Studies 02/10/23 18:13 CT head/brain wo con Stat Hospital Course (1) Acute on chronic HFrEF (heart failure with reduced ejection fraction): Now resolved. Treated with intravenous Lasix while hospitalized. Torsemide dosage has been increased at discharge. He is now off oxygen. Appreciate cardiology consultation and recommendations. (2) Elevated troponin: Due to supplydemand mismatch. No evidence of acute coronary syndrome (3) Iron deficiency anemia: Probably from chronic GI blood loss is associated with Coumadin. No overt melena or hematochezia. Parenteral iron supplementation while hospitalized. Continue oral iron replacement at discharge (4) Permanent atrial fibrillation: Rate controlled. Continue Coumadin anticoagulation. Telemetry (5) Rheumatic heart disease: Status post mechanical aortic valve replacement. (6) Ischemic cardiomyopathy: History of coronary artery bypass grafting in the past. No evidence of acute coronary syndrome. Continue current medical management (7) Fall: Mechanical. No fractures. Plan Discharge to the [facility] today, February 13 Total Time Total Time Spent Total Time Spent (In Minutes): 40 minutes Discharge Plan Discharge Items Patient Disposition: Transfer Snf Fac Reason For Visit: FALL,SOB Discharge Diagnosis: Acute on chronic systolic congestive heart failure, transient acute hypoxic respiratory failure, iron deficiency anemia, hypokalemia Activity: Resume your previous activity Non-emergency contact: Primary Care Provider Call non-emergency contact if: you have any medication questions and your symptoms worsen Follow-up/Referrals: [facility] Mauro Bhatia [Primary Care Provider] - Diet: Regular and Heart Healthy Addtl Attending Provider Instructions: Take iron tablet twice daily. Torsemide dosage has been increased to 60 mg daily. Take potassium daily Pending Studies at Discharge: No Stand-Alone Forms: My [facility] Skilled Items Patient informed of condition?: Yes DNR: Yes Discharge Level of Care: Skilled Communicable Disease: No Discharge Prognosis: Stable Lines: None Urinary Catheter: No Medications and DC Order Prescriptions: New spironolactone 25 mg Tablet 25 mg PO QAM Qty: 30 0RF potassium chloride 20 mEq Tablet,Er Particles/Crystals 20 meq PO DAILY Qty: 30 0RF Continued vitamin B complex Tablet 1 tab PO DAILY [place] Saline Gel 1 applic TOPICAL QID PRN (Reason: nasal dryness) acetaminophen 500 mg Tablet 500 mg PO Q4 PRN (Reason: Pain) diphenhydramine HCl [Benadryl Allergy] 25 mg Tablet 25 mg PO Q6 PRN (Reason: Itching) albuterol sulfate 2.5 mg /3 mL (0.083 %) solution for nebulization 2.5 mg inhalation Q2H PRN (Reason: Wheezing) Rx Instructions: 3 ml warfarin 7.5 mg tablet 7.5 mg PO Q OTHER DAY Rx Instructions: evening on odd days for afib warfarin 5 mg tablet 5 mg PO Q OTHER DAY Rx Instructions: Bedtime on even days multivitamin Tablet 1 tab PO DAILY metolazone 5 mg Tablet See Rx Instructions .ROUTE .COMPLEX Rx Instructions: 5 mg orally every Saturday, Saturday, and, Saturday before Torsemide melatonin 3 mg Tablet 3 mg PO HS PRN (Reason: Insomnia) hydrocortisone 1 % Cream 1 applic TOPICAL BID PRN (Reason: Itching) docusate sodium [Colace] 100 mg Capsule 100 mg PO BID metoprolol succinate 25 mg tablet extended release 24 hr PO polyethylene glycol 3350 [Miralax] 17 gram/dose Powder 17 g PO DAILY PRN (Reason: Constipation) fluticasone propionate 50 mcg/actuation [place],Suspension 50 mcg INTRANASAL DAILY Rx Instructions: 2 spray in both nostrils one time a day for allergies sertraline 50 mg Tablet 50 mg PO DAILY carboxymethylcellulose sodium [Refresh] 1 % Drops, Liquid Gel 2 drp OPB 4XD PRN (Reason: Dry Eyes) rosuvastatin 20 mg Tablet 20 mg PO DAILY gabapentin 100 mg Tablet 200 mg PO BID Rx Instructions: give 200mg two times a day for shingles pain 200mg BID metoprolol succinate 25 mg PO DAILY Changed torsemide 40 mg Tablet 60 mg PO DAILY Qty: 30 0RF Discharge Orders: Discharge Order- CHF (Routine); Ordered 02/13/23 Ordered By: Dusty Lopes Admission Data Admit Date/Time: 02/10/23 22:05 Attending Provider: Dusty Lopes Admit Provider: Alan Knowles Primary Care Provider: Mauro Mejia Other Providers: Adonis Ramos ; Chalo Howard Coding Level of Care Code 96135 INP/OBS DISCH >30 MIN Diagnoses Acute on chronic HFrEF (heart failure with reduced ejection fraction) I50.23 Elevated troponin R77.8 Iron deficiency anemia D50.9 Permanent atrial fibrillation I48.21 Rheumatic heart disease I09.9 Ischemic cardiomyopathy I25.5 Fall W19.XXXA
--- NOTE | 2023-02-13 12:32 | Cardiology Progress Note ---
Date of Service February 13, 2023 Assessment & Plan (1) Acute on chronic HFrEF (heart failure with reduced ejection fraction): (2) Ischemic cardiomyopathy: (3) Iron deficiency anemia: (4) S/P AVR: Plan Patient complex history of ischemic cardiomyopathy, reduced ejection fraction presented with acute on chronic systolic heart failure. Patient has responded to IV diuretics. Recent history notable for orthostasis and fall TAYE inhibitor discontinued June 2022 following mechanical fall Recommendations: As agree increase torsemide orally on discharge. Would not resume metolazone. Continue spironolactone 25 mg/day initiated in hospital. Goal addition of isosorbide and hydralazine for afterload reduction beginning with oral isosorbide DN 10 mg twice per day on discharge We will make arrangements for cardiology follow-up Admission and Anticipated Discharge Date Admission Date: February 10, 2023 Subjective Patient seen and examined, chart, medications, telemetry reviewed. Looks improved sitting out of bed in chair. Less breathless no longer with oxygen requirement No chest pain or shortness of breath. Blood pressure doing well. Receiving IV iron infusion Review of Systems Review of Systems: All systems reviewed & are unremarkable except as noted in Subjective Physical Exam Constitutional: WD/WN, vitals as above Eyes: PERRL, conjunctivae normal, anicteric sclerae ENMT: external ear and nose normal, oropharynx normal Neck: trachea midline, no thyromegaly Respiratory: Auscultation: + crackles (Left base) Cardiovascular: Rate/Rhythm: + irregularly irregular Heart Sounds: normal S2 ([place] mechanical valve sounds) and + murmur Vessels: no JVD Extremities: + edema (Improved) Gastrointestinal (Abdomen): normal bowel sounds, soft, nontender, no hepatosplenomegaly Results & Data Vital Signs (Past 12 Hours) Vital Signs Temp Pulse Pulse Resp BP BP Pulse Ox 02/13/23 12:08 37 C 77 18 111/67 130/74 98 02/13/23 11:12 77 18 98 02/13/23 07:16 18 98 02/13/23 07:06 02/13/23 07:06 37 C 65 16 130/74 98 02/13/23 05:57 77 02/13/23 02:23 36.5 C 80 18 111/67 95 O2 Del Method O2 Flow Rate 02/13/23 12:08 02/13/23 11:12 Room Air 02/13/23 07:16 Room Air 02/13/23 07:06 Nasal Cannula 2 02/13/23 07:06 Nasal Cannula 2 02/13/23 05:57 02/13/23 02:23 Nasal Cannula 2 Laboratory Results Laboratory Results - last 24 hr 02/13/23 02/13/23 02/13/23 06:11 06:11 09:05 PT 28.6 H INR 2.8 H Sodium 133 L Potassium 3.3 L Chloride 95 L Carbon Dioxide 29 Anion Gap 9 BUN 17 Creatinine 0.79 Est Cr Clr Drug Dosing 67.1 Est GFR ( Amer) 94.2 Est GFR (Non-Af Amer) 81.3 BUN/Creatinine Ratio 21.5 H Glucose 99 Calcium 9.2 SARS-CoV-2, RNA, NAAT NEGATIVE
--- NOTE | 2023-02-13 12:53 | Discharge Summary ---
Date of Service February 13, 2023 Admission HPI Per Admitting Provider 87 yo male with PMHx of CHF, pressure ulcer R heel, depression, ischemic cardiomyopathy, HTN, HLD, GERD, CAD s/p CABG, 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 Patient resides at the [facility]. Earlier today he was found on the ground laying on his left side near his walker. This was a presumed unwitnessed fall. He states that he felt a little dizzy which is what caused him to fall. This is happened to him about 5 times over the past couple of years. Per nursing staff patient did appear a bit altered at time of evaluation. He has associated shortness of breath which she states he has been experiencing for the past few weeks. Denies loss of consciousness, headache, fevers, chest pain, visual changes, abdominal pain, nausea, vomiting, dysuria, constipation, diarrhea, musculoskeletal pain. He follows with [facility] cardiology for his chronic heart conditions. He also sees wound care weekly for a pressure ulcer on his right heel which was debrided in 2021 as well as a surgical wound on his right abdomen which is now healed. Right foot CT in October 2022 demonstrated chronic osteomyelitis versus reactive osteitis of the heel however case was discussed and patient not a surgical candidate at this time. Principal Diagnosis Acute on chronic systolic congestive heart failure, acute hypoxic respiratory failure, iron deficiency anemia, hypokalemia Discharge Data Allergies Allergy/AdvReac Type Severity Reaction Status Date / Time Sulfa (Sulfonamide AdvReac Intermediate Unknown Verified 01/30/23 08:35 Antibiotics) Consultations 02/10/23 19:48 ED Decision to Admit Stat 02/10/23 23:06 Consult Cardiology Routine Ordered Studies 02/10/23 18:13 CT head/brain wo con Stat Total Time Total Time Spent Total Time Spent (In Minutes): 40 minutes Discharge Plan Discharge Items Patient Disposition: Transfer Group Home Fac Reason For Visit: FALL,SOB Discharge Diagnosis: Acute on chronic systolic congestive heart failure, transient acute hypoxic respiratory failure, iron deficiency anemia, hypokalemia Activity: Resume your previous activity Non-emergency contact: Primary Care Provider Call non-emergency contact if: you have any medication questions and your symptoms worsen Follow-up/Referrals: [facility] [Primary Care Provider] - Diet: Regular and Heart Healthy Addtl Attending Provider Instructions: Take iron tablet twice daily. Torsemide dosage has been increased to 60 mg daily. Take potassium daily Pending Studies at Discharge: No Stand-Alone Forms: My [facility] Skilled Items Patient informed of condition?: Yes DNR: Yes Discharge Level of Care: Skilled Communicable Disease: No Discharge Prognosis: Stable Lines: None Urinary Catheter: No Medications and DC Order Prescriptions: New spironolactone 25 mg Tablet 25 mg PO QAM Qty: 30 0RF potassium chloride 20 mEq Tablet,Er Particles/Crystals 20 meq PO DAILY Qty: 30 0RF isosorbide dinitrate 10 mg tablet 10 mg PO BID Qty: 60 0RF Rx Instructions: allow nitrate-free interval of 12-14 hrs per 24-hr period Continued vitamin B complex Tablet 1 tab PO DAILY [place] Saline Gel 1 applic TOPICAL QID PRN (Reason: nasal dryness) acetaminophen 500 mg Tablet 500 mg PO Q4 PRN (Reason: Pain) diphenhydramine HCl [Benadryl Allergy] 25 mg Tablet 25 mg PO Q6 PRN (Reason: Itching) albuterol sulfate 2.5 mg /3 mL (0.083 %) solution for nebulization 2.5 mg inhalation Q2H PRN (Reason: Wheezing) Rx Instructions: 3 ml warfarin 7.5 mg tablet 7.5 mg PO Q OTHER DAY Rx Instructions: evening on odd days for afib warfarin 5 mg tablet 5 mg PO Q OTHER DAY Rx Instructions: Bedtime on even days multivitamin Tablet 1 tab PO DAILY melatonin 3 mg Tablet 3 mg PO HS PRN (Reason: Insomnia) hydrocortisone 1 % Cream 1 applic TOPICAL BID PRN (Reason: Itching) docusate sodium [Colace] 100 mg Capsule 100 mg PO BID metoprolol succinate 25 mg tablet extended release 24 hr PO polyethylene glycol 3350 [Miralax] 17 gram/dose Powder 17 g PO DAILY PRN (Reason: Constipation) fluticasone propionate 50 mcg/actuation [place],Suspension 50 mcg INTRANASAL DAILY Rx Instructions: 2 spray in both nostrils one time a day for allergies sertraline 50 mg Tablet 50 mg PO DAILY carboxymethylcellulose sodium 1 % Drops, Liquid Gel 2 drp OPB 4XD PRN (Reason: Dry Eyes) rosuvastatin 20 mg Tablet 20 mg PO DAILY gabapentin 100 mg Tablet 200 mg PO BID Rx Instructions: give 200mg two times a day for shingles pain 200mg BID metoprolol succinate 25 mg PO DAILY Changed torsemide 40 mg Tablet 60 mg PO DAILY Qty: 30 0RF Discontinued metolazone 5 mg Tablet See Rx Instructions .ROUTE .COMPLEX Rx Instructions: 5 mg orally every Saturday, Saturday, and, Saturday before Torsemide Discharge Orders: Discharge Order- CHF (Routine); Ordered 02/13/23 Ordered By: Dusty Lopes Admission Data Admit Date/Time: 02/10/23 22:05 Attending Provider: Dusty Lopes Admit Provider: Alan Knowles Primary Care Provider: Mauro Mejia Other Providers: Adonis Ramos ; Chalo Howard Coding Level of Care Code 94904 INP/OBS DISCH >30 MIN Diagnoses
== END 2023-02-13 13:35 | DRG 291 ==
LOC: ED 17:43 → SUATTDRO 22:05 → 2N 22:05

== ENCOUNTER 2025-05-11 11:46 | Inpatient (IN) ==
[2025-05-11] MEDS: cefTRIAXone SODIUM 2,000 MG/50 ML BAG IV STA (12:12)
[2025-05-11 12:14] LABS: Hematocrit (blood only) 41.3 % (42.0-52.0); Hemoglobin 13.5 g/dl (14.0-18.0); Immature Granulocytes # (auto) 0.15 K/uL (0.01-0.20); Immature Granulocytes % (auto) 0.8 %; Mean Corpuscular Hemoglobin 28.4 pg (25.0-34.0); Mean Corpuscular Volume 86.8 fL (80.0-100.0); Platelet Count 286 K/uL (130-400); RDW Standard Deviation 45.0 fL (36.4-46.3); Red Blood Count 4.76 M/uL (4.70-6.10); White Blood Count 18.59 K/ul (4.8-10.8)
--- NOTE | 2025-05-11 12:32 | XRay Report ---
XR foot RT min 3V routine CLINICAL HISTORY: Toe wound COMPARISON: None FINDINGS: There are atherosclerotic calcifications. Bandage artifact is present at the second toe. T here is osseous destructive change at the mid and distal aspect of the second proximal phalanx. There is possible early osseous destructive change proximally at the second middle phalanx versus artifact from the overlying bandage. No other osseous destructive change seen. No fracture or dislocation. IMPRESSION: Osteomyelitis at the second proximal phalanx. Otherwise as described. ACT 112: Negative or not required by law. Electronically signed by: Shaji Edouard M.D. 05/11/2025 12:31 PM
[2025-05-11 12:40] LABS: Alanine Aminotransferase 14.0 U/L (7-52); Albumin Globulin Ratio 1.1 (0.9-2); Albumin Level 4.1 gm/dl (3.4-5.0); Alkaline Phosphatase 95.0 U/L (34-104); Anion Gap 9.0 (3-11); Bilirubin,Total 1.1 mg/dl (0.2-1.0); Blood Urea Nitrogen 31.0 mg/dl (6-23); Calcium 10.0 mg/dl (8.6-10.3); Carbon Dioxide 32.0 mmol/L (21-32); Chloride 94.0 mmol/L (98-107); Creatinine Clr Calc Pharmacy 50.6 ml/min; Globulin 3.7 gm/dl (2.5-4.0); Glucose 104.0 mg/dl (70-99(Fasting)); Potassium 3.6 mmol/L (3.5-5.1); Sodium 135.0 mmol/L (136-145); Total Protein 7.8 gm/dl (6.0-8.3)
[2025-05-11] MEDS ORDERED: VANCOMYCIN CONSULT ACTIVE PRN ×2 (12:43→15:18)
[2025-05-11 12:45] LABS: INR 2.3 (0.9-1.1); Prothrombin Time 23.5 Seconds (9.0-12.0)
--- NOTE | 2025-05-11 12:56 | Emergency Department Note ---
Impression & Plan Osteomyelitis, Cellulitis of right foot, Peripheral arterial disease ED Provider Note NAME: GABY HARRISON AGE: 89 SEX: M : 1935 ARRIVES VIA: Walk-In INFORMANT: Patient, Caregiver ED PROVIDER(S): Trey Campos DO CHIEF COMPLAINT: toe infection HPI: This is a 89-year-old male with the PMHx of for artery disease, heart failure, hypertension, and known osteomyelitis presenting to [facility] for further evaluation of concerns for wound infection. Patient is accompanied by his caregiver who provide additional history. They are reporting that they were at podiatry's office today and sent directly to the emergency department for admission. There are concerns for osteomyelitis with a chronic wound of the right long toe. They report that this has been an ongoing issue. They state that Dr. Saavedra sent them in. They deny fever or chills. No cough or congestion. Denies chest pain or palpitations. No shortness of breath. They deny abdominal pain, nausea and vomiting. No urinary complaints. No recent changes in bowel movements. Patient denies recent changes in medications or OTC supplements. Patient offers no other complaints, today. ADDITIONAL HISTORY OBTAINED: Per HPI Chronic Medical/Social Conditions Affecting Care: Per HPI PAST MEDICAL HISTORY: See Below PAST SURGICAL HISTORY: See Below FAMILY HISTORY: See Below SOCIAL HISTORY: See Below HOME MEDICATIONS: See Below ALLERGIES: See Below VITALS: See Below PHYSICAL EXAMINATION: GENERAL: Sitting up in bed, alert, well appearing, well nourished, no distress, non-toxic EYE EXAM: normal conjunctiva. PERRL and EOM's grossly intact. OROPHARYNX: no exudate, no erythema, lips, buccal mucosa, and tongue normal and mucous membranes are moist NECK: supple, no nuchal rigidity, no adenopathy, non-tender LUNGS: Clear to auscultation. Normal chest wall mechanics HEART: no murmurs, regular rate, regular rhythm ABDOMEN: abdomen soft, non-tender, no masses, no rebound or guarding. BACK: Back is symmetrical on inspection and there is no deformity, no midline tenderness, no CVA tenderness. SKIN: no rashes and no bruising UPPER EXTREMITIES: upper extremities are grossly normal. LOWER EXTREMITIES: No pitting edema. necrotic toe on the right second toe. No active bleeding or significant discharge. Surrounding erythema. NEURO EXAM: Normal sensorium, GCS 15, normal speech, no gross weakness of arms, no gross weakness of legs. MEDICAL DECISION MAKING: Differential diagnoses includes but not limited to vascular ulcer, diabetic wound, osteomyelitis, necrotizing fasciitis, cellulitis In summary, this is a 89 year old male who presented with concerns for osteomyelitis of the toe. Differential as above. Nursing notes and pertinent past medical records reviewed. Vital signs reviewed and the patient is afebrile and hemodynamically stable. He has not had any fevers. History and presentation revealed Ongoing wound that now appears infected. There are cellulitic changes and concerns for exposed bone on exam. Would suggest the patient likely has osteomyelitis. Will plan for inflammatory markers as well as basic lab work and x-rays. The patient will need broad-spectrum antibiotic coverage for osteomyelitis. Patient does not appear septic at this time. Doubt bacteremia. Diagnostics interpreted by me include EKG and cardiac monitoring as listed below: -Cardiac Monitoring: An order was placed for continuous cardiac monitoring. The monitor shows a rate of 50-70s with regular rhythm. Patient completed laboratory studies and imaging. Results independently interpreted by me are leukocytosis. Chronic anemia noted. ESR is elevated at 87. CRP is also elevated. Mild hyponatremia noted. Hyperglycemia noted. Patient has a therapeutic INR at 2.3. Plain films independently interpreted by me as positive for findings of osteomyelitis. Patient did have a MRSA nares collected and was started on ceftriaxone and vancomycin for coverage of osteomyelitis. The patient was discussed with Dr. Saavedra and he recommends treatment for infection as well as further vascular studies. He will work on planning for amputation. Ultimately, the decision was made to admit the patient for delayed wound healing now with osteomyelitis of the toe with concerns for cellulitic changes. I discussed the case with the hospitalist service via telephone/Tiger[employer] and they are agreeable to admit the patient to their services. Based on the above, including the patient's age, coexisting illnesses, labs, imaging, and exam findings the decision to treat as an inpatient. I discussed the patient with the hospitalist team who recommended admission to their services. They received the medications, treatments, interventions indicated above and their condition remained stable. I discussed my findings with the patient and their family and they understand and agree with the treatment plan. All patient / family questions were answered to their satisfaction. Consults/Care Managements Discussions: Per MDM ER treatment provided: See above Procedures: none Critical Care: None The chart was completed utilizing [employer] Interactive Speech voice recognition software. Grammatical errors, random word insertions, pronoun errors, and incomplete sentences are an occasional consequence of this system due to software limitations, ambient noise, and hardware issues. Any formal questions or concerns about the content, text, or information contained within the body of this dictation should be directly addressed to the physician for clarification. Past Med/Surg History Problem List (Updated 05/11/25 @ 17:01 by Trey Campos DO) Osteomyelitis (Acute) Peripheral arterial disease (Acute) Cellulitis of right foot (Acute) Osteomyelitis of second toe of right foot Abnormal ankle brachial index Stage IV pressure ulcer Stage III pressure ulcer of right heel (Acute) Skin tear of right forearm without complication (Acute) Osteomyelitis of right foot (Chronic) Iron deficiency anemia Elevated troponin Acute on chronic HFrEF (heart failure with reduced ejection fraction) Fall (Acute) Pressure injury of deep tissue of heel HTN, goal below 140/80 Abdominal wall abscess (Acute) Anticoagulant long-term use (Acute) Acetabulum fracture, left (Acute) Hypoxia (Acute) Acute chest wall pain (Acute) Fall (Acute) Depression Hypoxia Nondisplaced fracture of left acetabulum Leucocytosis HTN (hypertension) Abdominal wall hematoma (Acute) Encounter for pre-operative examination Closed intertrochanteric fracture of right hip (Acute) Right knee DJD Medical History Rheumatic heart disease Permanent atrial fibrillation Ischemic cardiomyopathy Chronic systolic (congestive) heart failure Improved volume status and dyspnea with initiation of diuretic per 09/2020 cardio records Intraventricular conduction delay Chronic per records Hyperlipidemia CAD (coronary artery disease) S/p 5 vessel CABG Atrial fibrillation On Coumadin - rate controlled per cardio Black stool Acute cholecystitis Acute cholangitis due to calculus of bile duct with obstruction Acute metabolic encephalopathy Encounter for pre-operative examination Cholelithiasis Memory deficits DVT prophylaxis Abnormal ENT evaluation Cholangitis Ischemic cardiomyopathy Mild decline in LVEF per 09/2020 ECHO (EF 25-30%) Aortic valve disease 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 Depression GERD (gastroesophageal reflux disease) Chronic atrial fibrillation Encounter for pre-operative examination Atrial fibrillation permanent CAD (coronary artery disease) s/p CABG x5 (2002) Cranial nerve palsy CVA (cerebral vascular accident) Per records dating back to 2014, patient denies Surgical History S/P AVR Status post incision and drainage History of cholecystectomy History of hip surgery Right hip nailin07/03/20: Grade view 2, MAC#3, ETT 7.5 at [facility] S/P CABG x 5 2002 Aortic valve replaced (during CABG- 2002) Family History Unknown No problems noted. Father , 77 Myocardial infarction Brother Diabetes Social History Smoking Status: Former smoker Tobacco Type: Smokeless Tobacco (Dip or Chew) Second Hand Exposure: No; Do You Dip or Chew Tobacco: No; Hx Alcohol Use: Yes Alcohol type: beer and wine Hx Substance Use: No Preferred Language: Nigerien Communication Ability: Effective Visual Impairment: Diminished Hearing Ability: Normal Gas Appliance Servicer Required: No Beliefs That Will Affect Care: Synagogue Synagogue Beliefs: Tenriism; no specific beliefs affecting care marital status: / Current Living Situation: [facility] Current Living Situation Comment: [facility] current occupational status: retired and disabled How many Children do You have: 2 Feels Safe at Home: Yes Diet: regular caffeine: Yes Physical Activity Frequency: Does not Exercise Do you think of yourself as: straight/heterosexual Gender Identity: Male Assistive Devices: Walker Allergies Allergies Allergy/AdvReac Type Severity Reaction Status Date / Time Sulfa (Sulfonamide AdvReac Intermediate Unknown Verified 05/06/25 13:22 Antibiotics) Home Meds Home Medications Medication Instructions Recorded Confirmed vitamin B complex 1 tab PO DAILY 05/11/22 05/11/25 acetaminophen 500 mg tablet 500 mg PO Q4 PRN Pain 08/08/22 05/11/25 albuterol sulfate 2.5 mg/3 mL 2.5 mg inhalation Q6H PRN Wheezing 02/10/23 05/11/25 (0.083 %) solution for nebulization docusate sodium 100 mg capsule 100 mg PO BID 02/10/23 05/11/25 (Colace) fluticasone propionate 50 50 mcg intranasal DAILY 02/10/23 05/11/25 mcg/actuation nasal spray,suspension gabapentin 100 mg tablet 200 mg PO BID 02/10/23 05/11/25 metoprolol succinate 25 mg 25 mg PO DAILY 02/10/23 05/11/25 tablet,extended release 24 hr multivitamin 1 tab PO DAILY 02/10/23 05/11/25 polyethylene glycol 3350 17 17 g PO DAILY Constipation 02/10/23 05/11/25 gram/dose oral powder (Miralax) rosuvastatin 20 mg tablet 20 mg PO DAILY 02/10/23 05/11/25 metolazone 5 mg tablet 5 mg PO 3XWK 05/06/25 05/11/25 warfarin 5 mg tablet 5 mg PO 3XWK 05/06/25 05/11/25 amoxicillin 500 mg capsule 2,000 mg PO DIRECTED PRN Dental 05/11/25 05/11/25 Procedures ceramides 1 applic topical Q12H PRN Dry Skin 05/11/25 05/11/25 1,3,3-SV-khisrxjclnb-hyaluronic acid ER lotion (CeraVe PM lotion,extended release) iogoohpffyozised-gigzxzotxp-rfxxebxq 2 spray mucous membrane Q4H PRN 05/11/25 05/11/25 5 mg-5 %-30 % mucosal spray Sore Throat famotidine 20 mg tablet 20 mg PO DAILY 05/11/25 05/11/25 ferrous sulfate 325 mg (65 mg 325 mg PO BID 05/11/25 05/11/25 iron) tablet,delayed release guaifenesin 600 mg tablet, 600 mg PO Q12H PRN Cough/Congestion 05/11/25 05/11/25 extended release 12 hr (Mucinex) memantine 5 mg tablet 5 mg PO BID 05/11/25 05/11/25 nystatin 100,000 unit/gram topical 1 applic topical DIRECTED 05/11/25 05/11/25 powder potassium chloride 20 mEq 20 meq PO BID 05/11/25 05/11/25 tablet,extended release(part/cryst) sertraline 100 mg tablet 100 mg PO DAILY 05/11/25 05/11/25 warfarin 2.5 mg tablet 2.5 mg PO 4XWK 05/11/25 05/11/25 Previous Rx's Medication Instructions Recorded spironolactone 25 mg tablet 25 mg PO QAM #30 tabs 02/13/23 torsemide 40 mg tablet 60 mg (1.5 x 40 mg) PO DAILY #30 02/13/23 tabs Results & Data (ED) Vital Signs Vital Signs - 24 hr 05/11/25 11:50 05/11/25 12:18 05/11/25 12:32 Temperature 36.6 C Temperature Source Temporal Artery Scan Pulse Rate 80 Pulse Rate [Finger] Pulse Rate from SpO2 Sensor 72 Respiratory Rate 18 18 Respiratory Effort / Characteristics Non-Labored Spontaneous Respiratory Depth Normal Blood Pressure 111/74 Blood Pressure [Right Arm] Blood Pressure Mean 86 139 Blood Pressure Mean [Right Arm] Blood Pressure Position Sitting Pulse Oximetry 94 Oxygen Delivery Method Room Air Sepsis Recent Fever Within 48 Hours No Sepsis New/Unexplained Change in Mental Status No Sepsis Action Taken by Nursing No Action Required 05/11/25 12:32 05/11/25 12:33 05/11/25 12:38 Temperature Temperature Source Pulse Rate 68 62 Pulse Rate [Finger] Pulse Rate from SpO2 Sensor Respiratory Rate 19 Respiratory Effort / Characteristics Respiratory Depth Blood Pressure Blood Pressure [Right Arm] Blood Pressure Mean 139 Blood Pressure Mean [Right Arm] Blood Pressure Position Pulse Oximetry Oxygen Delivery Method Sepsis Recent Fever Within 48 Hours Sepsis New/Unexplained Change in Mental Status Sepsis Action Taken by Nursing 05/11/25 13:03 05/11/25 13:04 05/11/25 13:24 Temperature Temperature Source Pulse Rate 59 L 59 L Pulse Rate [Finger] Pulse Rate from SpO2 Sensor 52 L 64 Respiratory Rate 17 16 Respiratory Effort / Characteristics Respiratory Depth Blood Pressure 116/68 Blood Pressure [Right Arm] Blood Pressure Mean 92 Blood Pressure Mean [Right Arm] Blood Pressure Position Pulse Oximetry 97 94 Oxygen Delivery Method Sepsis Recent Fever Within 48 Hours Sepsis New/Unexplained Change in Mental Status Sepsis Action Taken by Nursing 05/11/25 13:31 05/11/25 13:33 05/11/25 13:57 Temperature Temperature Source Pulse Rate 60 61 Pulse Rate [Finger] Pulse Rate from SpO2 Sensor 66 61 Respiratory Rate 17 19 Respiratory Effort / Characteristics Respiratory Depth Blood Pressure 103/62 Blood Pressure [Right Arm] Blood Pressure Mean 76 Blood Pressure Mean [Right Arm] Blood Pressure Position Pulse Oximetry 95 Oxygen Delivery Method Sepsis Recent Fever Within 48 Hours Sepsis New/Unexplained Change in Mental Status Sepsis Action Taken by Nursing 05/11/25 14:01 05/11/25 14:06 05/11/25 14:30 Temperature Temperature Source Pulse Rate 59 L Pulse Rate [Finger] Pulse Rate from SpO2 Sensor 60 Respiratory Rate 18 Respiratory Effort / Characteristics Respiratory Depth Blood Pressure 126/60 124/57 L Blood Pressure [Right Arm] Blood Pressure Mean 71 96 Blood Pressure Mean [Right Arm] Blood Pressure Position Pulse Oximetry 90 Oxygen Delivery Method Sepsis Recent Fever Within 48 Hours Sepsis New/Unexplained Change in Mental Status Sepsis Action Taken by Nursing 05/11/25 14:30 05/11/25 15:17 Temperature Temperature Source Pulse Rate 62 Pulse Rate [Finger] 56 L Pulse Rate from SpO2 Sensor 61 Respiratory Rate 17 20 Respiratory Effort / Characteristics Respiratory Depth Blood Pressure Blood Pressure [Right Arm] 125/61 Blood Pressure Mean Blood Pressure Mean [Right Arm] 82 Blood Pressure Position Pulse Oximetry 90 97 Oxygen Delivery Method Room Air Sepsis Recent Fever Within 48 Hours Sepsis New/Unexplained Change in Mental Status Sepsis Action Taken by Nursing Laboratory Data 05/11/25 12:05 05/11/25 12:05 Lab Results 05/11/25 05/11/25 Range/Units 12:05 12:10 WBC 18.59 H (4.8-10.8) K/ul RBC 4.76 (4.70-6.10) M/uL Hgb 13.5 L (14.0-18.0) g/dl Hct 41.3 L (42.0-52.0) % MCV 86.8 (80.0-100.0) fL MCH 28.4 (25.0-34.0) pg MCHC 32.7 (32.0-36.0) g/dL RDW Std Deviation 45.0 (36.4-46.3) fL RDW Coeff of Miller 14.2 (11.5-14.5) % Plt Count 286 (130-400) K/uL MPV 9.2 L (9.4-12.4) fL Immature Gran % (Auto) 0.8 % Neut % (Auto) 89.1 % Lymph % (Auto) 3.1 % [place] % (Auto) 5.8 % Eos % (Auto) 0.9 % Baso % (Auto) 0.3 % Neut # (Auto) 16.58 H (1.40-6.50) K/uL Lymph # (Auto) 0.58 L (1.20-3.40) K/uL [place] # (Auto) 1.07 H (0.11-0.59) K/uL Eos # (Auto) 0.16 (0.00-0.50) K/uL Baso # (Auto) 0.05 (0.00-0.20) K/uL Immature Gran # (Auto) 0.15 (0.01-0.20) K/uL ESR 87 H (0-20) mm/hr PT 23.5 H (9.0-12.0) Seconds INR 2.3 H (0.9-1.1) Sodium 135 L (136-145) mmol/L Potassium 3.6 (3.5-5.1) mmol/L Chloride 94 L (98-107) mmol/L Carbon Dioxide 32 (21-32) mmol/L Anion Gap 9 (3-11) BUN 31 H (6-23) mg/dl Creatinine 0.99 (0.6-1.4) mg/dl Est Cr Clr Drug Dosing 50.6 ml/min eGFR 72.82 BUN/Creatinine Ratio 31.3 H (10-20) Glucose 104 H (70-99(Fasting)) mg/dl Calcium 10.0 (8.6-10.3) mg/dl Total Bilirubin 1.1 H (0.2-1.0) mg/dl AST 26 (13-39) U/L ALT 14 (7-52) U/L Alkaline Phosphatase 95 (34-104) U/L C-Reactive Protein 8.59 H (0-0.5) mg/dl Total Protein 7.8 (6.0-8.3) gm/dl Albumin 4.1 (3.4-5.0) gm/dl Globulin 3.7 (2.5-4.0) gm/dl Albumin/Globulin Ratio 1.1 (0.9-2) Nasal Screen MRSA (PCR) Negative (Negative) Administered Medications Discontinued Medications Ceftriaxone Sodium (Rocephin) 2,000 mg in 50 mls @ 100 mls/hr IV NOW STA Stop: 05/11/25 12:33 Last Infusion: 05/11/25 12:59 Dose: Infused Documented By: Admin: 05/11/25 12:12 Dose: 100 mls/hr Documented By: ESTELA Vancomycin HCl 2,000 mg/ (Sodium Chloride) 540 mls @ 200 mls/hr IV NOW ONE Stop: 05/11/25 15:24 Last Infusion: 05/11/25 16:04 Dose: Infused Documented By: Admin: 05/11/25 13:02 Dose: 200 mls/hr Documented By: SW Imaging Data Radiologist's Impression: Foot X-Ray 05/11/25 12:03 XR foot RT min 3V routine CLINICAL HISTORY: Toe wound COMPARISON: None FINDINGS: There are atherosclerotic calcifications. Bandage artifact is present at the second toe. There is osseous destructive change at the mid and distal aspect of the second proximal phalanx. There is possible early osseous destructive change proximally at the second middle phalanx versus artifact from the overlying bandage. No other osseous destructive change seen. No fracture or dislocation. IMPRESSION: Osteomyelitis at the second proximal phalanx. Otherwise as described. ACT 112: Negative or not required by law. Electronically signed by: Shaji Edouard M.D. 05/11/2025 12:31 PM Foot X-Ray 05/11/25 13:48 XR foot RT min 3V routine CLINICAL HISTORY: Osteomyelitis right second toe COMPARISON: 05/11/2025 FINDINGS: There are atherosclerotic calcifications. There is bandage artifact at the second toe limiting evaluation. There is patchy lucency distally at the second proximal phalanx. There is a possible superimposed nondisplaced fracture at the distal aspect of the second proximal phalanx. No other fracture or dislocation seen. IMPRESSION: 1. Bandage artifact at the second toe. 2. Findings suggesting osteomyelitis distal aspect of the second proximal phalanx. 3. Possible underlying fracture distal aspect of the second proximal phalanx. ACT 112: Negative or not required by law. Electronically signed by: Shaji Edouard M.D. 05/11/2025 2:31 PM Discharge Plan Visit Data Chief Complaint: Wound Stated Complaint: R FOOT, OPEN WOUND WITH EXPOSED BONE ED Provider: Trey Campos Discharge Problem: Osteomyelitis, Cellulitis of right foot, Peripheral arterial disease Patient Disposition: Admitted As Inpatient Condition: Serious Forms Stand Alone Forms: [employer] Prescriptions Prescriptions: No Action metolazone 5 mg tablet 5 mg PO 3XWK Rx Instructions: 5 mg orally Mon, Wed, Fri; vitamin B complex Tablet 1 tab PO DAILY acetaminophen 500 mg Tablet 500 mg PO Q4 PRN (Reason: Pain) albuterol sulfate 2.5 mg /3 mL (0.083 %) solution for nebulization 2.5 mg inhalation Q6H PRN (Reason: Wheezing) Rx Instructions: 3 ml multivitamin Tablet 1 tab PO DAILY docusate sodium [Colace] 100 mg Capsule 100 mg PO BID metoprolol succinate 25 mg tablet extended release 24 hr 25 mg PO DAILY polyethylene glycol 3350 [Miralax] 17 gram/dose Powder 17 g PO DAILY fluticasone propionate 50 mcg/actuation [place],Suspension 50 mcg INTRANASAL DAILY Rx Instructions: 2 spray in both nostrils one time a day for allergies rosuvastatin 20 mg Tablet 20 mg PO DAILY gabapentin 100 mg Tablet 200 mg PO BID Rx Instructions: give 200mg two times a day for shingles pain 200mg BID spironolactone 25 mg Tablet 25 mg PO QAM Qty: 30 0RF torsemide 40 mg Tablet 60 mg PO DAILY Qty: 30 0RF warfarin 5 mg tablet 5 mg PO 3XWK Rx Instructions: Mon/Wed/Fri amoxicillin 500 mg Capsule 2,000 mg PO DIRECTED PRN (Reason: Dental Procedures) Rx Instructions: Take 1 hour prior to dental procedures sertraline 100 mg tablet 100 mg PO DAILY warfarin 2.5 mg tablet 2.5 mg PO 4XWK Rx Instructions: //Sat/Sun famotidine 20 mg tablet 20 mg PO DAILY nystatin 100,000 unit/gram powder 1 applic TOPICAL DIRECTED Rx Instructions: Every shift ferrous sulfate 325 mg (65 mg iron) Tablet,Delayed Release (Dr/Ec) 325 mg PO BID memantine 5 mg tablet 5 mg PO BID Cepacol Dual Relief ST, Cough 5-5-30 mg-%-% [place],Non-Aerosol 2 spray MUCOUS MEMBRANE Q4H PRN (Reason: Sore Throat) CeraVe PM Lotion,Extended Release 1 applic TOPICAL Q12H PRN (Reason: Dry Skin) guaifenesin [Mucinex] 600 mg Tablet Extended Release 12hr 600 mg PO Q12H PRN (Reason: Cough/Congestion) potassium chloride 20 mEq tablet,ER particles/crystals 20 meq PO BID Referrals Referrals: Mauro Mejia [Primary Care Provider] -
[2025-05-11] MEDS: VANCOMYCIN HCL 2,000 MG in SODIUM CHLORIDE 0.9% 500 ML IV ONE (13:02)
--- NOTE | 2025-05-11 13:15 | History & Physical Report ---
Date of Service May 11, 2025 Assessment & Plan (1) Peripheral arterial disease: (2) Osteomyelitis of second toe of right foot: (3) Stage IV pressure ulcer: (4) Anticoagulant long-term use: Plan #Stage IV Pressure ulcer(s) of 2nd r. toe/Osteomyelitis - seen in Wound Care office as outpt day of admission, referred to ER; recent Hx of month-long Tx w/ various Abx - bone exposed with both dorsal lesions of 2nd r. toe, pt w/out pain, decreased sensation - both lesions debrided in outside office and wound Cx collected and pending - Podiatry consult placed (plan for 2nd r. toe amputation on 05/13/25) - Foot X-ray: 1) osteomyelitis of 2nd r. phalanx - WBC, 18.6 upon admission; CRP, 8.6 and ESR, 87 also upon admission - Ceftriaxone, 2g, IV and Vancomycin, 2g, IV given in ER - previous Hx of Pseudomonas infxn of r. ankle --> switch Ceftriaxone to Cefepime - continue Cefepime and Vancomycin - trend CBC AM, daily - order procal, Blood Cx ordered d/t high risk for bacteremia - wound/surgical Cx will be obtained during surgery #Long-term potassium supplementation (even while on spironolactone) - trend BMP AM daily Chronic conditions #AFib - hold warfarin but resume after amputation surgery, daily INR's - continue metoprolol #HFrEF - hold spironolactone 24 hrs before surgery but continue afterwards #Depression - continue sertraline #Dementia -continue memantine Code status: DNR/DNI Disposition: Med-Surg FENGI: regular diet VTE Prophylaxis: Coumadin (held for now) History of Present Illness Primary Care Provider: [facility], 1928–1983 Patient is a 89 yo M w/ a PMHx of dementia, depression, Hx of falls, HTN, HFrEF, PAD, healed pressure ulcer of r. heel, anemia, Hx of non-displaced hip fracture, permanent AFib (on Coumadin), CAD, HLD presenting today w/ concerns for a non- healing r. 2nd toe lesion/pressure ulcer. Recent chart Hx confirms multiple courses of antibiotics including Ciprofloxacin, Keflex, and doxycycline after the lesion was first noticed and treatment began on March 29, 2025. He was seen earlier this morning at Wound Care and referred here after inspection of the wound noted exposed bone. Some debridement was performed in the office today. Patient is a poor historian and is unable to state whether there has been any decreased pain, swelling over the last month with treatment or any improvement in his capacity to ambulate. Patient uncertain whether he is currently able to ambulate even with an assistive device when at [place]. Patient denies any CP or palpitations, AP, suprapubic pain or dysuria. Patient does endorse some chest congestion, dyspnea, and increased phlegm production (and difficulty clearing it from his throat). He also endorses some mild calf pain bilaterally, some mild pain over the medial malleolus of his r. ankle, but denies any pain of his 2nd r. toe or any of the other toes of his r. foot (or left foot). Allergies Allergy/AdvReac Type Severity Reaction Status Date / Time Sulfa (Sulfonamide AdvReac Intermediate Unknown Verified 05/06/25 13:22 Antibiotics) Home Medications Medication Instructions Recorded Confirmed Type vitamin B complex 1 tab PO DAILY 05/11/22 05/11/25 History acetaminophen 500 mg tablet 500 mg PO Q4 PRN Pain 08/08/22 05/11/25 History albuterol sulfate 2.5 mg/3 mL 2.5 mg inhalation Q6H PRN Wheezing 02/10/23 05/11/25 History (0.083 %) solution for nebulization docusate sodium 100 mg capsule 100 mg PO BID 02/10/23 05/11/25 History (Colace) fluticasone propionate 50 50 mcg intranasal DAILY 02/10/23 05/11/25 History mcg/actuation nasal spray,suspension gabapentin 100 mg tablet 200 mg PO BID 02/10/23 05/11/25 History metoprolol succinate 25 mg 25 mg PO DAILY 02/10/23 05/11/25 History tablet,extended release 24 hr multivitamin 1 tab PO DAILY 02/10/23 05/11/25 History polyethylene glycol 3350 17 17 g PO DAILY Constipation 02/10/23 05/11/25 History gram/dose oral powder (Miralax) rosuvastatin 20 mg tablet 20 mg PO DAILY 02/10/23 05/11/25 History spironolactone 25 mg tablet 25 mg PO QAM #30 tabs 02/13/23 05/11/25 Rx torsemide 40 mg tablet 60 mg (1.5 x 40 mg) PO DAILY #30 02/13/23 05/11/25 Rx tabs metolazone 5 mg tablet 5 mg PO 3XWK 05/06/25 05/11/25 History warfarin 5 mg tablet 5 mg PO 3XWK 05/06/25 05/11/25 History amoxicillin 500 mg capsule 2,000 mg PO DIRECTED PRN Dental 05/11/25 05/11/25 History Procedures ceramides 1 applic topical Q12H PRN Dry Skin 05/11/25 05/11/25 History 1,3,5-KC-bkvgsglgiay-hyaluronic acid ER lotion (CeraVe PM lotion,extended release) hltusxhgpfkaqgtf-zykyrwdctg-hrrkoqro 2 spray mucous membrane Q4H PRN 05/11/25 05/11/25 History 5 mg-5 %-30 % mucosal spray Sore Throat famotidine 20 mg tablet 20 mg PO DAILY 05/11/25 05/11/25 History ferrous sulfate 325 mg (65 mg 325 mg PO BID 05/11/25 05/11/25 History iron) tablet,delayed release guaifenesin 600 mg tablet, 600 mg PO Q12H PRN Cough/Congestion 05/11/25 05/11/25 History extended release 12 hr (Mucinex) memantine 5 mg tablet 5 mg PO BID 05/11/25 05/11/25 History nystatin 100,000 unit/gram topical 1 applic topical DIRECTED 05/11/25 History powder potassium chloride 20 mEq 20 meq PO BID 05/11/25 05/11/25 History tablet,extended release(part/cryst) sertraline 100 mg tablet 100 mg PO DAILY 05/11/25 05/11/25 History warfarin 2.5 mg tablet 2.5 mg PO 4XWK 05/11/25 05/11/25 History Past Med/Surg History Problem List (Updated 05/11/25 @ 17:01 by Trey Campos DO) Osteomyelitis (Acute) Peripheral arterial disease (Acute) Cellulitis of right foot (Acute) Osteomyelitis of second toe of right foot Abnormal ankle brachial index Stage IV pressure ulcer Stage III pressure ulcer of right heel (Acute) Skin tear of right forearm without complication (Acute) Osteomyelitis of right foot (Chronic) Iron deficiency anemia Elevated troponin Acute on chronic HFrEF (heart failure with reduced ejection fraction) Fall (Acute) Pressure injury of deep tissue of heel HTN, goal below 140/80 Abdominal wall abscess (Acute) Anticoagulant long-term use (Acute) Acetabulum fracture, left (Acute) Hypoxia (Acute) Acute chest wall pain (Acute) Fall (Acute) Depression Hypoxia Nondisplaced fracture of left acetabulum Leucocytosis HTN (hypertension) Abdominal wall hematoma (Acute) Encounter for pre-operative examination Closed intertrochanteric fracture of right hip (Acute) Right knee DJD Medical History Rheumatic heart disease Permanent atrial fibrillation Ischemic cardiomyopathy Chronic systolic (congestive) heart failure Improved volume status and dyspnea with initiation of diuretic per 09/2020 cardio records Intraventricular conduction delay Chronic per records Hyperlipidemia CAD (coronary artery disease) S/p 5 vessel CABG Atrial fibrillation On Coumadin - rate controlled per cardio Black stool Acute cholecystitis Acute cholangitis due to calculus of bile duct with obstruction Acute metabolic encephalopathy Encounter for pre-operative examination Cholelithiasis Memory deficits DVT prophylaxis Abnormal ENT evaluation Cholangitis Ischemic cardiomyopathy Mild decline in LVEF per 09/2020 ECHO (EF 25-30%) Aortic valve disease 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 Depression GERD (gastroesophageal reflux disease) Chronic atrial fibrillation Encounter for pre-operative examination Atrial fibrillation permanent CAD (coronary artery disease) s/p CABG x5 (2002) Cranial nerve palsy CVA (cerebral vascular accident) Per records dating back to 2014, patient denies Surgical History S/P AVR Status post incision and drainage History of cholecystectomy History of hip surgery Right hip nailin07/03/20: Grade view 2, MAC#3, ETT 7.5 at [facility] S/P CABG x 5 2002 Aortic valve replaced (during CABG- 2002) Family History Unknown No problems noted. Father , 77 Myocardial infarction Brother Diabetes Social History Smoking Status: Never smoker Tobacco Type: Smokeless Tobacco (Dip or Chew) Second Hand Exposure: No; Do You Dip or Chew Tobacco: No; Tobacco Cessation Education Requested by Patient: No Hx Alcohol Use: No Hx Substance Use: No Preferred Language: Hungarian Communication Ability: Effective Visual Impairment: Diminished Hearing Ability: Normal [employer] Required: No Beliefs That Will Affect Care: None marital status: / Current Living Situation: Personal Care Facility Current Living Situation Comment: [facility] current occupational status: retired and disabled How many Children do You have: 2 Other Information That Helps Us Care for You: No Feels Safe at Home: Yes Diet: regular caffeine: Yes Physical Activity Frequency: Does not Exercise Do you think of yourself as: straight/heterosexual Gender Identity: Male Assistive Devices: Wheelchair Review of Systems Review of Systems: All systems reviewed & are unremarkable except as noted in HPI & below Physical Exam Constitutional: WD/WN, vitals as above Respiratory: normal respiratory effort, lungs clear to auscultation normal respiratory effort and + cough intermittent hypoxia when sleeping Cardiovascular: Rate/Rhythm: + bradycardic and + irregularly irregular Vessels: + posterior tibial pulses abnormal and + dorsalis pedis pulses abnormal Extremities: + calf tenderness (mild bilaterally) mild swelling of r. ankle of medial malleolus Gastrointestinal (Abdomen): normal bowel sounds, soft, nontender, no hepatosplenomegaly Skin: + wound (2 wounds of dorsal aspect r. 2n d toe, bone exposed) Neurologic: Motor/Sensory: + sensory deficit (decreased light touch and pain sensation of both feet); normal movement (+5/5 dorsiflexion and plantar flexion of feet) Psychiatric: Orientation: alert, oriented to person, oriented to place and cooperative; + not oriented to time Results & Data Results & Data Vital Signs (Past 12 Hours) Vital Signs Temp Pulse Resp BP Pulse Ox O2 Del Method 05/11/25 12:38 62 05/11/25 11:50 36.6 C 80 18 111/74 94 Room Air (3) Stage IV pressure ulcer Laterality: right Pressure injury location: toe Qualified Code(s): L89.894 - Pressure ulcer of other site, stage 4
--- NOTE | 2025-05-11 14:33 | XRay Report ---
XR foot RT min 3V routine CLINICAL HISTORY: Osteomyelitis right second toe COMPARISON: 05/11/2025 FINDINGS: There are atherosclerotic calcifications. There is bandage artifact at the second toe limi ting evaluation. There is patchy lucency distally at the second proximal phalanx. There is a possible superimposed nondisplaced fracture at the distal aspect of the second proximal phalanx. No other fra cture or dislocation seen. IMPRESSION: 1. Bandage artifact at the second toe. 2. Findings suggesting osteomyelitis distal aspect of the second proximal phalanx. 3. Possible underlying fracture distal aspect of the second proximal phalanx. ACT 112: Negative or not required by law. Electronically signed by: Shaji Edouard M.D. 05/11/2025 2:31 PM
[2025-05-11] MEDS ORDERED: ONDANSETRON INJ 2 MG/ML 2 ML VIAL IV PRN (14:40)
[2025-05-11] MEDS ORDERED: POLYETHYLENE (MIRALAX) 17 GM PACK PO PRN (14:40)
[2025-05-11] MEDS ORDERED: SODIUM CHLORIDE 0.9% IV SCH (15:30)
[2025-05-11] MEDS ORDERED: VANCOMYCIN HCL IV SCH (15:30)
--- NOTE | 2025-05-11 16:01 | Pharmacy Report ---
Pharmacy PK ABX Note - Date of Service May 11, 2025 - Assessment and Plan Assessment * 89 year old M receiving cefepime and vancomycin for treatment of osteomyelitis 2nd toe R foot w exposed bone. Amputation planned 05/13. Recent history of ~month long therapy with various antibiotics including ciprofloxacin, cephalexin, and doxycycline * Pertinent microbiologic data includes: hx Pseudomonas (R ankle, abdomen), Afib on warfarin, PAD, dementia and poor historian, resident of the [facility] * Microbiology * 05/11 Debridement culture obtained by wound clinic prior to arrival * 05/11 Nasal MRSA swab negative * 05/11 blood cultures (ordered after ceftriaxone, cefepime, and vancomycin administered) Plan Vancomycin * Loading dose: 2000 mg IV x 1 * Maintenance dose: 1250 mg IV every 24 hours * Regimen is predicted to achieve target AUC/JEFF of 400-600 mg/L.hr * Random level ordered for: 05/13 AM Pharmacy will continue to follow and will adjust dose/frequency as necessary. Thank you. Pharmacy has transitioned to AUC monitoring for vancomycin. AUC/JEFF is the preferred PK/PD target and is associated with decreased risk of nephrotoxicity compared to traditional trough targets.
--- NOTE | 2025-05-11 17:04 | Ultrasound Report ---
Technique: Grayscale, color Doppler and spectral waveform analysis imaging of the leg arteries was performed Findings: Triphasic and biphasic waveforms are seen within the right leg arteries. There is multifocal atherosclerotic plaque. There is an apparent stenosis of the posterior tibial artery Peak systolic velocities in centimeters per second are as follows: REGROOVER 55 PFA 37 Prox SFA 54 Mid SFA 78 Distal SFA 51 Popliteal 42 JNENIFER 36 [employer] 165 Smith Pedis 40 Impression: Right leg atherosclerosis with a stenosis of the right [employer] Electronically signed by Rikki Callaway 05-11-2025 5:04 PM
[2025-05-11] MEDS: CEFEPIME 2000MG 2,000 MG/20 ML SYR IV SCH (17:56)
[2025-05-11] MEDS: METOPROLOL SUCC 25MG EXT REL TAB PO SCH (18:34)
[2025-05-11] MEDS: FAMOTIDINE 20 MG TAB PO SCH (18:42)
[2025-05-11] MEDS: SERTRALINE HCL 100 MG TABLET PO SCH (18:43)
[2025-05-11] MEDS: FLUTICASONE PROPIONATE NA SPR 16 GM BTL SCH (18:44)
[2025-05-11] MEDS: NYSTATIN POWDER 15GM BTL EXT SCH (18:46)
[2025-05-11] MEDS: POTASSIUM CHLORIDE CRTAB 20 MEQ TABCR PO SCH (20:08)
[2025-05-11] MEDS: DOCUSATE SODIUM 100 MG CAP PO SCH (20:09)
[2025-05-11] MEDS: FERROUS SULFATE 325 MG TAB PO SCH (20:09)
[2025-05-11] MEDS: MEMANTINE HCL 5 MG TAB PO SCH (20:09)
[2025-05-11] MEDS: MELATONIN 3 MG TAB PO PRN (20:09)
[2025-05-11] MEDS: GABAPENTIN 100 MG CAP PO SCH (20:09)
[2025-05-11] MEDS: ACETAMINOPHEN 500 MG TAB PO PRN (20:10)
--- NOTE | 2025-05-11 23:29 | XRay Report ---
Exam(s): XR CXR 1 VIEW EXAM: XR Chest, 1 View CLINICAL HISTORY: Reason for exam: hypoxia, CHF. TECHNIQUE: Frontal view of the chest. COMPARISON: Prior chest x-ray from February 12, 2023. FINDINGS: Lungs: Mild to moderate peribronchial thickening of the central lower lobe bronchi with small patchy opacity at the right lung base. Pleural space: Unremarkable. No pneumothorax. Heart: Mild cardiomegaly. Status post mitral valve replacement. Mediastinum: Unremarkable. Normal mediastinal contour. Bones/joints: Status post median sternotomy with sternal wires intact. Diffuse osteopenia throughout the visualized bones. No acute fracture. IMPRESSION: Bronchitis with right lower lobe infiltrate. Communications: Verify Receipt Electronically signed by: Nakita Alan MD 05/11/25 23:28 PM
--- NOTE | 2025-05-12 00:44 | Communication Note ---
Date of Service: May 12, 2025 Nurse alerted me relatively early in the evening that pt bradycardic down to the 30s. Went to bedside to assess. Pt resting comfortably, no distress. He was sleeping initially when I walked in the room, denies chest pain or SOB. Telemetry reviewed, he is in afib and thus rates are variable on telemetry but mostly 40-50s. He did have higher frequency of rates in the 30s and last echo EF in 2022 was 25-30%. BPs acceptable throughout night. Did give one 0.5 mg dose of atropine for rates in the 30s which improved rates into the 60s for a time and t hen rates were largely 40-50s and seem to be tolerated by patient. Chart reviewed; pt had gotten a dose of his home metoprolol succinate around 18:30 and rates not too long after dropped. Pt does not recall if he took his home metoprolol yesterday before coming in. Question if he was given a duplicate dose of his home metoprolol as his rates when it was given was already 60s and wonder if this is the cause of his current bradycardia. Given mag and calcium gluconate doses. He continues to be asymptomatic and feeling well.
[2025-05-12] MEDS: ATROPINE SULFATE 0.1 MG/ML 10ML SYR IV STA ×2 (00:50→07:00)
[2025-05-12] MEDS: MAGNESIUM SULFATE / D5W 1 GM/100 ML BAG IV SCH (01:15)
[2025-05-12 01:26] LABS: Anion Gap 7.0 (3-11); Blood Urea Nitrogen 35.0 mg/dl (6-23); Calcium 9.3 mg/dl (8.6-10.3); Carbon Dioxide 32.0 mmol/L (21-32); Chloride 95.0 mmol/L (98-107); Creatinine Clr Calc Pharmacy 41.7 ml/min; Glucose 95.0 mg/dl (70-99(Fasting)); Magnesium 2.0 mg/dl (1.7-2.4); Potassium 3.3 mmol/L (3.5-5.1); Sodium 134.0 mmol/L (136-145)
[2025-05-12] MEDS: CALCIUM GLUCONATE 1,000 MG/60 ML BAG IV STA (01:26)
--- NOTE | 2025-05-12 06:30 | Billing Data ---
Date of Service May 11, 2025 Coding Level of Care Code 46979 INT INP/OBS CARE
[2025-05-12 07:45] LABS: Hematocrit (blood only) 35.2 % (42.0-52.0); Hemoglobin 11.7 g/dl (14.0-18.0); Immature Granulocytes # (auto) 0.12 K/uL (0.01-0.20); Immature Granulocytes % (auto) 0.8 %; Mean Corpuscular Hemoglobin 29.0 pg (25.0-34.0); Mean Corpuscular Volume 87.3 fL (80.0-100.0); Platelet Count 241 K/uL (130-400); RDW Standard Deviation 45.1 fL (36.4-46.3); Red Blood Count 4.03 M/uL (4.70-6.10); White Blood Count 15.35 K/ul (4.8-10.8)
[2025-05-12 07:57] LABS: Anion Gap 7.0 (3-11); Blood Urea Nitrogen 33.0 mg/dl (6-23); Calcium 9.6 mg/dl (8.6-10.3); Carbon Dioxide 33.0 mmol/L (21-32); Chloride 95.0 mmol/L (98-107); Creatinine Clr Calc Pharmacy 48.6 ml/min; Glucose 99.0 mg/dl (70-99(Fasting)); Potassium 3.3 mmol/L (3.5-5.1); Sodium 135.0 mmol/L (136-145)
[2025-05-12 08:14] LABS: INR 2.1 (0.9-1.1); Prothrombin Time 21.1 Seconds (9.0-12.0)
--- NOTE | 2025-05-12 08:49 | Podiatry Consultation ---
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 Patient will require right second digit amputation. Will discuss possibility of amputation under local anesthesia following reevaluation of patient's sensation to the foot and discussion with his son who acts as POA. Tentative plan for amputation 05/13/2025. - Evaluated by vascular surgery with arterial duplex ultrasound and MADDY/TBI. Vascular plans to reevaluate TBI results to determine whether or not intervention is necessary however recommendation is to move forward with digital amputation for source control. - Preoperative cardiology consultation complete with recommendation for local anesthesia. IV heparin bridging when INR is less than 2.0. Case discussed with operating room with tentative plan for ORIF 1230. N.p.o. at midnight. Will discuss case with patient and his son to review and sign written informed consent. History of Present Illness Reason for Consultation: Osteomyelitis right second toe Attending Physician: Aaron Johnson DO History of Present Illness Past medical history significant for peripheral arterial disease, osteomyelitis of the right second toe with open wound and exposed joint, dementia, depression, hypertension, anemia, A-fib, coronary artery disease, hyperlipidemia. Patient is a resident at the [facility] and is nonambulatory in a wheelchair does use his feet for transfers. Patient was seen and the podiatry office 05/11/2025 for evaluation and need for amputation of the right second toe. Initial evaluation in the wound center 05/06/2025 noting exposed bone to the right second toe which was cultured. Referred to my office for amputation of the right second toe. It was noted that he had completed a 10-day course of Keflex in April and a 14-day course of doxycycline starting mid March 2025. On evaluation exposed bone and joint at the proximal interphalangeal joint of the right second toe with significant overlying necrotic slough tissue erythema and edema extending into the forefoot. Patient denies nausea, vomiting, fever, chills. Patient was referred to the emergency department for admission, antibiotic therapy, medical management, surgical clearance, noninvasive vascular studies with need for right second toe amputation. Patient's condition and recommendations reviewed with son Anthony. Bone culture obtained from wound care visit on 05/06/2025 with low counts of mixed probable skin microbiota. And another culture from the right second toe o n 04/22/2025 growing Proteus Mirabilis pansensitive. Patient has noninvasive vascular arterial studies from 02/04/2023 showing patent peroneal and posterior tibial arteries that are difficult to visualize. Anterior tibial artery patent proximally but occluded at the distal segment with reconstitution via collaterals to supply the dorsalis pedis artery. Allergies Allergy/AdvReac Type Severity Reaction Status Date / Time Sulfa (Sulfonamide AdvReac Intermediate Unknown Verified 05/06/25 13:22 Antibiotics) Home Medications Medication Instructions Recorded Confirmed Type vitamin B complex 1 tab PO DAILY 05/11/22 05/11/25 History acetaminophen 500 mg tablet 500 mg PO Q4 PRN Pain 08/08/22 05/11/25 History albuterol sulfate 2.5 mg/3 mL 2.5 mg inhalation Q6H PRN Wheezing 02/10/23 05/11/25 History (0.083 %) solution for nebulization docusate sodium 100 mg capsule 100 mg PO BID 02/10/23 05/11/25 History (Colace) fluticasone propionate 50 50 mcg intranasal DAILY 02/10/23 05/11/25 History mcg/actuation nasal spray,suspension gabapentin 100 mg tablet 200 mg PO BID 02/10/23 05/11/25 History metoprolol succinate 25 mg 25 mg PO DAILY 02/10/23 05/11/25 History tablet,extended release 24 hr multivitamin 1 tab PO DAILY 02/10/23 05/11/25 History polyethylene glycol 3350 17 17 g PO DAILY Constipation 02/10/23 05/11/25 History gram/dose oral powder (Miralax) rosuvastatin 20 mg tablet 20 mg PO DAILY 02/10/23 05/11/25 History spironolactone 25 mg tablet 25 mg PO QAM #30 tabs 02/13/23 05/11/25 Rx torsemide 40 mg tablet 60 mg (1.5 x 40 mg) PO DAILY #30 02/13/23 05/11/25 Rx tabs metolazone 5 mg tablet 5 mg PO 3XWK 05/06/25 05/11/25 History warfarin 5 mg tablet 5 mg PO 3XWK 05/06/25 05/11/25 History amoxicillin 500 mg capsule 2,000 mg PO DIRECTED PRN Dental 05/11/25 05/11/25 History Procedures ceramides 1 applic topical Q12H PRN Dry Skin 05/11/25 05/11/25 History 1,3,5-QL-przbixykzga-hyaluronic acid ER lotion (CeraVe PM lotion,extended release) ladgukxofqvmmzpt-ozqshrplfm-kzqvnayz 2 spray mucous membrane Q4H PRN 05/11/25 05/11/25 History 5 mg-5 %-30 % mucosal spray Sore Throat famotidine 20 mg tablet 20 mg PO DAILY 05/11/25 05/11/25 History ferrous sulfate 325 mg (65 mg 325 mg PO BID 05/11/25 05/11/25 History iron) tablet,delayed release guaifenesin 600 mg tablet, 600 mg PO Q12H PRN Cough/Congestion 05/11/25 05/11/25 History extended release 12 hr (Mucinex) memantine 5 mg tablet 5 mg PO BID 05/11/25 05/11/25 History nystatin 100,000 unit/gram topical 1 applic topical DIRECTED 05/11/25 05/11/25 History powder potassium chloride 20 mEq 20 meq PO BID 05/11/25 05/11/25 History tablet,extended release(part/cryst) sertraline 100 mg tablet 100 mg PO DAILY 05/11/25 05/11/25 History warfarin 2.5 mg tablet 2.5 mg PO 4XWK 05/11/25 05/11/25 History Patient History Medical History Rheumatic heart disease Permanent atrial fibrillation Ischemic cardiomyopathy Chronic systolic (congestive) heart failure Improved volume status and dyspnea with initiation of diuretic per 09/2020 cardio records Intraventricular conduction delay Chronic per records Hyperlipidemia CAD (coronary artery disease) S/p 5 vessel CABG Atrial fibrillation On Coumadin - rate controlled per cardio Black stool Acute cholecystitis Acute cholangitis due to calculus of bile duct with obstruction Acute metabolic encephalopathy Encounter for pre-operative examination Cholelithiasis Memory deficits DVT prophylaxis Abnormal ENT evaluation Cholangitis Ischemic cardiomyopathy Mild decline in LVEF per 09/2020 ECHO (EF 25-30%) Aortic valve disease 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 Depression GERD (gastroesophageal reflux disease) Chronic atrial fibrillation Encounter for pre-operative examination Atrial fibrillation permanent CAD (coronary artery disease) s/p CABG x5 (2002) Cranial nerve palsy CVA (cerebral vascular accident) Per records dating back to 2014, patient denies Surgical History S/P AVR Status post incision and drainage History of cholecystectomy History of hip surgery Right hip nailin07/03/20: Grade view 2, MAC#3, ETT 7.5 at [facility] S/P CABG x 5 2002 Aortic valve replaced (during CABG- 2002) Family History Unknown No problems noted. 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 Denies pain in the right foot. Physical Exam Physical Exam: Objective: Const: Appears well developed and well nourished. No signs of acute distress present. CV: Extremities: Pedal pulses nonpalpable bilateral Skin: Open wound to the dorsal aspect of the right second toe with exposed bone and joint surrounding cellulitis Neuro: Sensation intact to light touch in all areas of the foot and ankle. Focused lower extremity musculoskeletal exam: Leg: No pain with compression of the calf muscle. Ankles: Normal to inspection and palpation. No swelling bilaterally. No tenderness bilaterally. Feet: Thin atrophic skin to the bilateral foot with loss of hair growth. There is a serration to the dorsal aspect of the second digit overlying the interphalangeal joint with exposed bone and joint surrounding necrotic tissue. Erythema and edema extending to the right ankle. Results & Data Vital Signs (Past 12 Hours) Vital Signs Temp Pulse Pulse Resp BP BP Pulse Ox 05/12/25 07:31 36.3 C L 60 16 125/60 99 05/12/25 07:00 47 L 122/71 05/12/25 03:18 36.4 C L 48 L 12 116/74 100 05/12/25 01:51 05/11/25 23:28 36.5 C 47 L 12 95/54 L 95 05/11/25 23:07 36.5 C 49 L 12 95/54 L 95 05/11/25 23:07 05/11/25 21:59 Pulse Ox O2 Del Method O2 Del Method O2 Flow Rate O2 Flow Rate 05/12/25 07:31 Nasal Cannula 2 05/12/25 07:00 05/12/25 03:18 Nasal Cannula 2 05/12/25 01:51 Nasal Cannula 2 05/11/25 23:28 Nasal Cannula 2 05/11/25 23:07 Nasal Cannula 2 05/11/25 23:07 92 Nasal Cannula 2 05/11/25 21:59 Nasal Cannula 2 Diagnostic Findings XR foot RT min 3V routine CLINICAL HISTORY: Osteomyelitis right second toe COMPARISON: 05/11/2025 FINDINGS: There are atherosclerotic calcifications. There is bandage artifact at the second toe limiting evaluation. There is patchy lucency distally at the second proximal phalanx. There is a possible superimposed nondisplaced fracture at the distal aspect of the second proximal phalanx. No other fracture or dislocation seen. IMPRESSION: 1. Bandage artifact at the second toe. 2. Findings suggesting osteomyelitis distal aspect of the second proximal phalanx. 3. Possible underlying fracture distal aspect of the second proximal phalanx. Right lower extremity duplex arterial ultrasound 05/11/2025: Technique: Grayscale, color Doppler and spectral waveform analysis imaging of the leg arteries was performed Findings: Triphasic and biphasic waveforms are seen within the right leg arteries. There is multifocal atherosclerotic plaque. 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
--- NOTE | 2025-05-12 09:10 | Cardiology Consultation ---
Date of Consultation May 12, 2025 Assessment & Plan (1) Osteomyelitis: (2) Preop cardiovascular exam: (3) Bradycardia: (4) Rheumatic aortic valve disease: (5) Status post mechanical aortic valve replacement: (6) Ischemic cardiomyopathy: (7) LBBB (left bundle branch block): (8) Atrioventricular node dysfunction: Plan Preoperative cardiology consultation: Patient with osteomyelitis of the right second toe with open wound and exposed joint necessitating amputation tentatively scheduled for May 13, 2025. High risk. Poor functional capacity. Further cardiac testing beyond resting echocardiography will only delay a necessary procedure and will not likely reduce perioperative risk. Attempt to optimize as time permits, see below Okay to proceed with surgery without further cardiac evaluation Recommend local anesthesia Patient requires IV heparin bridging when INR is less than 2.0 due to the mechanical valve in the aortic position Bradycardia, atrial fibrillation (permanent) with a slow ventricular response, Tachy-Stu Syndrome: Seemingly asymptomatic Possible inadvertent additional dose of metoprolol succinate administered Responded to atropine Recommend atropine if symptomatic and/or hemodynamically unstable. Maximum total dose is 3 mg. Patient with contraindications to permanent device implantation Hold metoprolol succinate Maintain telemetry ? future off label use of theophylline starting at 100 mg twice a day MECHANICAL aortic valve: Necessitates chronic Coumadin anticoagulation INR Goal 2.5 to 3.5 INR 2.1 this AM Utilize IV heparin bridge when INR is less than 2.0 Multivessel ASCVD: Status post remote RI circa 1991, CABG x5 on 10/12/2002, resultant ischemic cardiomyopathy LVEF 25% NYHA Class III Chronic left bundle branch block Permanent atrial fibrillation Continue medical management. Ascending aortic aneurysm: Patient is not a candidate for intervention. Continue conservative medical management. Supervising Physician Co-Signing Physician Notes Patient seen and examined. Past medical history, surgical history, social history and family history have been reviewed. The medical record and all the above studies have been reviewed. Case DW ERIKA including management. R second toe osteomyelitis Preop cardiology evaluation s/p Mechanical AVR Permanent Atrial Fib with SVR SSS Severe ICM LBBB - old CAD S/P 5V CABG Dementia DC rate slowing meds including beta blockers due to SVR and pause 3.1 sec patient is cleared as high risk from cardiac standpoint for stated surgery with no further cardiac w/u indicated at this time bridge anticoagulation with IV Heparin when off coumadin and subtherapeutic INR hold and restart IV Heparin 4 hrs pre and post surgery coumadin for INR 2.5 to 3.5 GDMT for HFrEF keeping HR between 60 to 100 BPM and systolic BP between 100-140 mmHg adjust anti-HTN meds keeping systolic BP between 100-140 mmHg diurese as indicated avoid hypovolemia keep patient euvolemic 1.5 L / 24 hr fluid restriction strict I&Os salt restriction correct and f/u electrolytes f/u renal function History of Present Illness Reason for Consultation: Preoperative cardiology consultation, bradycardia Requesting Physician: Dr. Aaron Johnson Attending Physician: Dr. Aaron Johnson, DO History of Present Illness Anthony Cadena is an 89-year-old male who was referred for hospitalization by Podiatry on May 11, 2025 due to osteomyelitis of the right second toe with open wound and exposed joint necessitating right second digit amputation which is tentatively planned for May 13, 2025. Cardiology consultation requested for preoperative recommendations and also due to observed bradycardia. The patient is not a reliable source of information. Information obtained via chart review. Patient seemingly asymptomatic with bradycardia. Heart rates down into the 30s transiently, and with occasional pauses up to 3.1 seconds in duration. Patient received 0.5 mg of atropine followed by a second dose of 1 mg of atropine with improvement in heart rate to the 50-60s. There is concern that patient received an additional dose of metoprolol succinate 25 mg/day on top of his prior to arrival dose of metoprolol succinate 25 mg/day Past Medical and Surgical History Rheumatic fever in the 1950s and possible bicuspid aortic valve Status post aortic valve replacement on October 12, 2002, receiving a 25 mm [place] MECHANICAL valve necessitating chronic Coumadin anticoagulation, INR Goal 2.5 to 3.5 ASCVD * Remote myocardial infarction circa 1991, resultant ischemic cardiomyopathy * LVEF 25% * NYHA Class III * Left bundle branch block * Catheterization in September 2002 with a 40% left main stenosis, 90% mid LAD with proximal disease and a very large diagonal, diseased very small intermediate ramus, diseased proximal LCX, and a chronci RCA occlusion. * Status post CABG x5 on 10/12/2002, receiving PINEDA to the LAD, SVG to the first diagonal branch and posterior descending, sequential SVG grafts to bifurcated marginal system Permanent atrial fibrillation. Peripheral arterial disease Ascending aortic aneurysm Chart history of transient ischemic attack Chronic kidney disease Hypertension Hyperlipidemia Fatty liver GERD Dementia Iron deficiency anemia Osteoarthritis Right hip fracture status post nailing, 06/2020 Osteomyelitis of the right heel not felt to be a surgical candidate per documentation Carpal tunnel surgery Ascending cholangitis, status post ERCP, and cholecystectomy Bilateral inguinal hernia repair Bilateral cataract extraction Family History: Father with an RI at 77. Social History: Former smoker. Former smokeless tobacco user. No significant alcohol. 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 Resident of [facility] [place]. Allergies Allergy/AdvReac Type Severity Reaction Status Date / Time Sulfa (Sulfonamide AdvReac Intermediate Unknown Verified 05/06/25 13:22 Antibiotics) Home Medications Medication Instructions Recorded Confirmed Type vitamin B complex 1 tab PO DAILY 05/11/22 05/11/25 History acetaminophen 500 mg tablet 500 mg PO Q4 PRN Pain 08/08/22 05/11/25 History albuterol sulfate 2.5 mg/3 mL 2.5 mg inhalation Q6H PRN Wheezing 02/10/23 05/11/25 History (0.083 %) solution for nebulization docusate sodium 100 mg capsule 100 mg PO BID 02/10/23 05/11/25 History (Colace) fluticasone propionate 50 50 mcg intranasal DAILY 02/10/23 05/11/25 History mcg/actuation nasal spray,suspension gabapentin 100 mg tablet 200 mg PO BID 02/10/23 05/11/25 History metoprolol succinate 25 mg 25 mg PO DAILY 02/10/23 05/11/25 History tablet,extended release 24 hr multivitamin 1 tab PO DAILY 02/10/23 05/11/25 History polyethylene glycol 3350 17 17 g PO DAILY Constipation 02/10/23 05/11/25 History gram/dose oral powder (Miralax) rosuvastatin 20 mg tablet 20 mg PO DAILY 02/10/23 05/11/25 History spironolactone 25 mg tablet 25 mg PO QAM #30 tabs 02/13/23 05/11/25 Rx torsemide 40 mg tablet 60 mg (1.5 x 40 mg) PO DAILY #30 02/13/23 05/11/25 Rx tabs metolazone 5 mg tablet 5 mg PO 3XWK 05/06/25 05/11/25 History warfarin 5 mg tablet 5 mg PO 3XWK 05/06/25 05/11/25 History amoxicillin 500 mg capsule 2,000 mg PO DIRECTED PRN Dental 05/11/25 05/11/25 History Procedures ceramides 1 applic topical Q12H PRN Dry Skin 05/11/25 05/11/25 History 1,3,7-SW-rfspvfkjaho-hyaluronic acid ER lotion (CeraVe PM lotion,extended release) rwuvgkafkjamifcv-qklkyegkwz-wmmmoqns 2 spray mucous membrane Q4H PRN 05/11/25 05/11/25 History 5 mg-5 %-30 % mucosal spray Sore Throat famotidine 20 mg tablet 20 mg PO DAILY 05/11/25 05/11/25 History ferrous sulfate 325 mg (65 mg 325 mg PO BID 05/11/25 05/11/25 History iron) tablet,delayed release guaifenesin 600 mg tablet, 600 mg PO Q12H PRN Cough/Congestion 05/11/25 05/11/25 History extended release 12 hr (Mucinex) memantine 5 mg tablet 5 mg PO BID 05/11/25 05/11/25 History nystatin 100,000 unit/gram topical 1 applic topical DIRECTED 05/11/25 05/11/25 History powder potassium chloride 20 mEq 20 meq PO BID 05/11/25 05/11/25 History tablet,extended release(part/cryst) sertraline 100 mg tablet 100 mg PO DAILY 05/11/25 05/11/25 History warfarin 2.5 mg tablet 2.5 mg PO 4XWK 05/11/25 05/11/25 History Patient History Medical History Rheumatic heart disease Permanent atrial fibrillation Ischemic cardiomyopathy Chronic systolic (congestive) heart failure Improved volume status and dyspnea with initiation of diuretic per 09/2020 cardio records Intraventricular conduction delay Chronic per records Hyperlipidemia CAD (coronary artery disease) S/p 5 vessel CABG Atrial fibrillation On Coumadin - rate controlled per cardio Black stool Acute cholecystitis Acute cholangitis due to calculus of bile duct with obstruction Acute metabolic encephalopathy Encounter for pre-operative examination Cholelithiasis Memory deficits DVT prophylaxis Abnormal ENT evaluation Cholangitis Ischemic cardiomyopathy Mild decline in LVEF per 09/2020 ECHO (EF 25-30%) Aortic valve disease 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 Depression GERD (gastroesophageal reflux disease) Chronic atrial fibrillation Encounter for pre-operative examination Atrial fibrillation permanent CAD (coronary artery disease) s/p CABG x5 (2002) Cranial nerve palsy CVA (cerebral vascular accident) Per records dating back to 2014, patient denies Surgical History S/P AVR Status post incision and drainage History of cholecystectomy History of hip surgery Right hip nailin07/03/20: Grade view 2, MAC#3, ETT 7.5 at [facility] S/P CABG x 5 2002 Aortic valve replaced (during CABG- 2002) Family History Unknown No problems noted. Father , 77 Myocardial infarction Brother Diabetes Social History Smoking Status: Never smoker Tobacco Type: Smokeless Tobacco (Dip or Chew) Second Hand Exposure: No; Do You Dip or Chew Tobacco: No; Tobacco Cessation Education Requested by Patient: No Hx Alcohol Use: No Hx Substance Use: No Preferred Language: Korean Communication Ability: Effective Visual Impairment: Diminished Hearing Ability: Normal Hotel Director Required: No Beliefs That Will Affect Care: None marital status: / Current Living Situation: Personal Care Facility Current Living Situation Comment: [facility] current occupational status: retired and disabled How many Children do You have: 2 Other Information That Helps Us Care for You: No Feels Safe at Home: Yes Diet: regular caffeine: Yes Physical Activity Frequency: Does not Exercise Do you think of yourself as: straight/heterosexual Gender Identity: Male Assistive Devices: Wheelchair Review of Systems Review of Systems: A complete and accurate review of systems was unable to be obtained Physical Exam Physical Exam: General: Alert to person but not place or time. No acute distress, eating jacey akfast, cough observed HENT: Normocephalic. Atraumatic. Eyes: Right sided ectropion. Conjunctiva pink, sclera clear. Neck: Bilateral carotid bruits. No JVD. Heart: Irregularly irregular at 56 bpm. Story mechanical valve sounds. PMI displaced laterally. Soft systolic murmur. No diastolic murmur. Lungs: Clear to auscultation anteriorly. Abdomen: +BS. Soft. Nontender. No masses or organomegaly. Extremities: Dressing not removed. No significant edema. Limited neurological examination is without focal deficits. Pulses: Not appreciated bilaterally Results & Data Vital Signs (Past 12 Hours) Vital Signs Temp Pulse Pulse Resp BP BP Pulse Ox 05/12/25 07:31 36.3 C L 60 16 125/60 99 05/12/25 07:00 47 L 122/71 05/12/25 03:18 36.4 C L 48 L 12 116/74 100 05/12/25 01:51 05/11/25 23:28 36.5 C 47 L 12 95/54 L 95 05/11/25 23:07 36.5 C 49 L 12 95/54 L 95 05/11/25 23:07 05/11/25 21:59 Pulse Ox O2 Del Method O2 Del Method O2 Flow Rate O2 Flow Rate 05/12/25 07:31 Nasal Cannula 2 05/12/25 07:00 05/12/25 03:18 Nasal Cannula 2 05/12/25 01:51 Nasal Cannula 2 05/11/25 23:28 Nasal Cannula 2 05/11/25 23:07 Nasal Cannula 2 05/11/25 23:07 92 Nasal Cannula 2 05/11/25 21:59 Nasal Cannula 2 Laboratory Results Cardiac Enzymes 05/11/25 Range/Units 12:05 AST 26 (13-39) U/L Coagulation 05/11/25 05/12/25 Range/Units 12:05 06:57 PT 23.5 H 21.1 H (9.0-12.0) Seconds CBC 05/11/25 05/12/25 Range/Units 12:05 06:57 WBC 18.59 H 15.35 H (4.8-10.8) K/ul RBC 4.76 4.03 L (4.70-6.10) M/uL Hgb 13.5 L 11.7 L (14.0-18.0) g/dl Hct 41.3 L 35.2 L (42.0-52.0) % Plt Count 286 241 (130-400) K/uL Neut # (Auto) 16.58 H 13.36 H (1.40-6.50) K/uL Lymph # (Auto) 0.58 L 0.47 L (1.20-3.40) K/uL [place] # (Auto) 1.07 H 1.06 H (0.11-0.59) K/uL Eos # (Auto) 0.16 0.30 (0.00-0.50) K/uL Baso # (Auto) 0.05 0.04 (0.00-0.20) K/uL Comprehensive Metabolic Panel 05/11/25 05/12/25 05/12/25 Range/Units 12:05 00:54 06:57 Sodium 135 L 134 L 135 L (136-145) mmol/L Potassium 3.6 3.3 L 3.3 L (3.5-5.1) mmol/L Chloride 94 L 95 L 95 L (98-107) mmol/L Carbon Dioxide 32 32 33 H (21-32) mmol/L BUN 31 H 35 H 33 H (6-23) mg/dl Creatinine 0.99 1.20 1.03 (0.6-1.4) mg/dl Glucose 104 H 95 99 (70-99(Fasting)) mg/dl Calcium 10.0 9.3 9.6 (8.6-10.3) mg/dl AST 26 (13-39) U/L ALT 14 (7-52) U/L Alkaline Phosphatase 95 (34-104) U/L Total Protein 7.8 (6.0-8.3) gm/dl Albumin 4.1 (3.4-5.0) gm/dl Intake and Output 05/11/25 05/12/25 05/12/25 22:59 06:59 14:59 Intake Total 540 / 850 260 / 850 Output Total 500 / 500 Balance 540 / 350 -240 / 350 Intake: IV 540 / 850 260 / 850 Calcium Gluconate 1,000 mg In 60 / 60 60 ml @ 240 mls/hr IV NOW STA Rx#:[id number] Magnesium Sulfate / D5w 1 gm In 200 / 200 100 ml @ 50 mls/hr IV Q2H PATTIE Rx#:[id number] Vancomycin HCl 2,000 mg In 540 / 540 Sodium Chloride 0.9% 500 ml @ 200 mls/hr IV NOW ONE Rx#: [id number] Output: Urine Amount (Catheter) 500 / 500 [place]/Indwelling 500 / 500 Other: Weight 84.7 kg Weight Measurement Method Built in [facility] Diagnostic Findings February 11, 2023 TTE Interpretation Summary ([facility], Dr. Ramos): Normal size left ventricle. Myocardial wall thickness is mildly increased and noninfarcted segment. Septal motion consistent with conduction abnormality. Thinning, akinesis, and expansion of the anteroseptum and entire apex. Basilar structures contract normally. Ejection fraction 25 to 30%. Moderately dilated left atrium. Mild to moderately dilated right atrium. Bioprosthetic aortic valve. Gradient normal. No aortic regurgitation. Moderate to severe mitral regurgitation. Mild to moderate tricuspid regurgitation. RVSP 50 to 60 mmHg. Mild aortic root dilatation. Moderately dilated ascending aorta (4.9 cm). EKG in the morning of May 12, 2025 revealed atrial fibrillation with a slow ventricular response, 43 bpm, with left axis deviation, chronic left bundle branch block. QRS duration 178 ms. Telemetry: Atrial fibrillation (permanent) with heart rates down into the 30s overnight and credit checker with 1 pause greater than 3 seconds (3.1 seconds), currently heart rates in the 50s and 60s PG Care Time/CCT Total # of Minutes Spent Total Time Spent with Patient: Total time spent is greater than 50% in coordination of care (as documented) at patient's floor/unit and/or counseling patient. I spent a total of 70 minutes on the date of service in preparation, delivery, and documentation of the care provided to this patient excluding any time spent in the performance of separately billed services. This visit was a split-shared visit with the substantive portion of the medical decision making performed by the supervising company laborer/billing provider. Coding Level of Care Code 76271 IN/OBS CONSULT LVL 5,80M Diagnoses Osteomyelitis M86.9 Preop cardiovascular exam Z01.810 Bradycardia R00.1 Rheumatic aortic valve disease I06.9 Status post mechanical aortic valve replacement Z95.2 Ischemic cardiomyopathy I25.5 LBBB (left bundle branch block) I44.7 Atrioventricular node dysfunction I45.89
[2025-05-12] MEDS: ROSUVASTATIN CALCIUM 20 MG TAB PO SCH (09:22)
[2025-05-12] MEDS: SPIRONOLACTONE 25 MG TAB PO SCH (09:23)
[2025-05-12] MEDS: TORSEMIDE 20 MG TAB PO SCH (09:23)
[2025-05-12] MEDS: VANCOMYCIN HCL 1,250 MG in SODIUM CHLORIDE 0.9% 250 ML IV SCH (09:23)
--- NOTE | 2025-05-12 09:55 | Vascular Surgery Consultation ---
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 Currently on antibiotics with improvement in leukocytosis Non-invasive testing upon admission with arterial duplex showing stenosis at the proximal posterior tibial artery, however flow noted in dorsalis pedis and phasic signals noted by doppler in both PT and DP. Based on these findings, he will likely heal planned procedure, however would recommend repeat MADDY/TBI (had done in 2022) to assess toe pressure for healing potential, as his last ABIs were non-compressible in 2022, but he had adequate toe pressures for healing at that time. Should toe pressure be decreased, further vascular intervention may be needed, however he would likely benefit from source control first. (2) Peripheral arterial disease: arterial duplex with right posterior tibial artery stenosis, and previous arterial duplex in 2022 with occluded anterior tibial artery with reconstitution into DP via collaterals, with adequate toe pressures bilaterally. continue statin Repeat MADDY/TBI may need further vascular intervention depending on TBI results. He was seen by cardiology and cleared for podiatric surgery, and will be bridged with IV heparin once INR less than 2. History of Present Illness Reason for Consultation: right BRICKMASON stenosis, right 2nd toe osteomyelitis Requesting Physician: Dr. Davidson Simeon Attending Physician: Aaron Johnson DO History of Present Illness Mr. Cadena is an 89 year old male who we are being asked to see for right posterior tibial artery stenosis in setting of right second toe osteomyelitis with bone exposure. History was mostly obtained from chart and medical personnel due to patient's dementia, with some history obtained from patient. He has a past medical history significant for dementia, HTN, HFrEF, PAD with previous slow healing pressure ulcer to right heal, anemia, afib (on coumadin), AVR with mechanical valve, CAD, HLD. In March 2025 he was noted to have a right 2nd toe lesion/pressure ulcer and was being treated with local wound care at first with saline, Medihoney and eventually Dakin Solution and 14 day course of doxycycline, with no osteomyelitis noted on xray at that time in March. At the beginning of April his antibiotics were switched to Keflex and wound culture taken at that time grew proteus and antibiotics were then switched from Keflex to Cipro, which was started 04/27. He was referred to the wound clinic to assist with wound healing. On exam by the wound clinic, he was noted to have exposed bone fragments and wound was debrided and recommendation was for him to be seen by surgical deployment specialist for definitive care. He was seen by Dr. Saavedra from Podiatry on 05/11. He was referred to the ED after visit for medical management with IV antibiotics and vascular testing, due for need for at least R second toe amputation and risk for developing sepsis. In the ED, lab work revealed leukocytosis of 18.6, elevated ESR at 87 and elevated CRP at 8.6. He was started on IV antibiotics (cefepime and vanco due to history of pseudomonas in 2022 wound). Xray of foot demonstrated osteomyelitis of the 2nd right proximal phalanx. Arterial duplex demonstrated a stenosis at the level of proximal posterior tibial artery, with velocities of 165, with flow noted in anterior tibial and dorsalis pedis arteries on duplex. He did have diagnostic arterial studies done in 2022 for his right heel wound, and at that time ABIs were non-compressible, however TBIs done at that time were adequate for healing, with right toe pressure of 76mmHg and left toe pressure of 104mmHg. Duplex at that time demonstrated an occluded JENNIFER on the right with reconstitution at the DP via collaterals.BRICKMASON and peroneal artery were both patent at that time. Currently he tells me that he has no pain in his feet. He denies any nausea, fevers or chills. The rest of ROS is limited secondary to his dementia. He otherwise states he feels well and enjoyed his breakfast. Leukocytosis slightly improved on IV antibiotics. He is non-ambulatory, and uses a wheelchair at his facility. He is a never smoker based on medical record. He is on a statin currently. Allergies Allergy/AdvReac Type Severity Reaction Status Date / Time Sulfa (Sulfonamide AdvReac Intermediate Unknown Verified 05/06/25 13:22 Antibiotics) Home Medications Medication Instructions Recorded Confirmed Type vitamin B complex 1 tab PO DAILY 05/11/22 05/11/25 History acetaminophen 500 mg tablet 500 mg PO Q4 PRN Pain 08/08/22 05/11/25 History albuterol sulfate 2.5 mg/3 mL 2.5 mg inhalation Q6H PRN Wheezing 02/10/23 05/11/25 History (0.083 %) solution for nebulization docusate sodium 100 mg capsule 100 mg PO BID 02/10/23 05/11/25 History (Colace) fluticasone propionate 50 50 mcg intranasal DAILY 02/10/23 05/11/25 History mcg/actuation nasal spray,suspension gabapentin 100 mg tablet 200 mg PO BID 02/10/23 05/11/25 History metoprolol succinate 25 mg 25 mg PO DAILY 02/10/23 05/11/25 History tablet,extended release 24 hr multivitamin 1 tab PO DAILY 02/10/23 05/11/25 History polyethylene glycol 3350 17 17 g PO DAILY Constipation 02/10/23 05/11/25 History gram/dose oral powder (Miralax) rosuvastatin 20 mg tablet 20 mg PO DAILY 02/10/23 05/11/25 History spironolactone 25 mg tablet 25 mg PO QAM #30 tabs 02/13/23 05/11/25 Rx torsemide 40 mg tablet 60 mg (1.5 x 40 mg) PO DAILY #30 02/13/23 05/11/25 Rx tabs metolazone 5 mg tablet 5 mg PO 3XWK 05/06/25 05/11/25 History warfarin 5 mg tablet 5 mg PO 3XWK 05/06/25 05/11/25 History amoxicillin 500 mg capsule 2,000 mg PO DIRECTED PRN Dental 05/11/25 05/11/25 History Procedures ceramides 1 applic topical Q12H PRN Dry Skin 05/11/25 05/11/25 History 1,3,5-RY-cvlecfwcdup-hyaluronic acid ER lotion (CeraVe PM lotion,extended release) qvsmihgqjvyxkscc-efksnocimn-qvhjuhzr 2 spray mucous membrane Q4H PRN 05/11/25 05/11/25 History 5 mg-5 %-30 % mucosal spray Sore Throat famotidine 20 mg tablet 20 mg PO DAILY 05/11/25 05/11/25 History ferrous sulfate 325 mg (65 mg 325 mg PO BID 05/11/25 05/11/25 History iron) tablet,delayed release guaifenesin 600 mg tablet, 600 mg PO Q12H PRN Cough/Congestion 05/11/25 05/11/25 History extended release 12 hr (Mucinex) memantine 5 mg tablet 5 mg PO BID 05/11/25 05/11/25 History nystatin 100,000 unit/gram topical 1 applic topical DIRECTED 05/11/25 05/11/25 History powder potassium chloride 20 mEq 20 meq PO BID 05/11/25 05/11/25 History tablet,extended release(part/cryst) sertraline 100 mg tablet 100 mg PO DAILY 05/11/25 05/11/25 History warfarin 2.5 mg tablet 2.5 mg PO 4XWK 05/11/25 05/11/25 History Patient History Medical History Rheumatic heart disease Permanent atrial fibrillation Ischemic cardiomyopathy Chronic systolic (congestive) heart failure Improved volume status and dyspnea with initiation of diuretic per 09/2020 cardio records Intraventricular conduction delay Chronic per records Hyperlipidemia CAD (coronary artery disease) S/p 5 vessel CABG Atrial fibrillation On Coumadin - rate controlled per cardio Black stool Acute cholecystitis Acute cholangitis due to calculus of bile duct with obstruction Acute metabolic encephalopathy Encounter for pre-operative examination Cholelithiasis Memory deficits DVT prophylaxis Abnormal ENT evaluation Cholangitis Ischemic cardiomyopathy Mild decline in LVEF per 09/2020 ECHO (EF 25-30%) Aortic valve disease 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 Depression GERD (gastroesophageal reflux disease) Chronic atrial fibrillation Encounter for pre-operative examination Atrial fibrillation permanent CAD (coronary artery disease) s/p CABG x5 (2002) Cranial nerve palsy CVA (cerebral vascular accident) Per records dating back to 2014, patient denies Surgical History S/P AVR Status post incision and drainage History of cholecystectomy History of hip surgery Right hip nailin07/03/20: Grade view 2, MAC#3, ETT 7.5 at [facility] S/P CABG x 5 2002 Aortic valve replaced (during CABG- 2002) Family History Unknown No problems noted. Father , 77 Myocardial infarction Brother Diabetes Social History Smoking Status: Never smoker Tobacco Type: Smokeless Tobacco (Dip or Chew) Second Hand Exposure: No; Do You Dip or Chew Tobacco: No; Tobacco Cessation Education Requested by Patient: No Hx Alcohol Use: No Hx Substance Use: No Preferred Language: Amharic Communication Ability: Effective Visual Impairment: Diminished Hearing Ability: Normal Rn Outpatient Surgery Required: No Beliefs That Will Affect Care: None marital status: / Current Living Situation: Personal Care Facility Current Living Situation Comment: [facility] current occupational status: retired and disabled How many Children do You have: 2 Other Information That Helps Us Care for You: No Feels Safe at Home: Yes Diet: regular caffeine: Yes Physical Activity Frequency: Does not Exercise Do you think of yourself as: straight/heterosexual Gender Identity: Male Assistive Devices: Wheelchair Review of Systems Review of Systems: All systems reviewed to best of ability and are negative except as noted in HPI and below. Respiratory: denies coughing, shortness of breath Cardiovascular: Additional Comments: denies chest pain Gastrointestinal: denies vomiting, diarrhea Physical Exam Constitutional: WD, WN, sitting up in bed eating breakfast, conversational Eyes: PERRLA Neck: trachea midline, no lymphadenopathy Respiratory: no increased work of breathing, no accessory muscle use. Clear to auscultation in anterior sue Cardiovascular: irregularly irregular, systolic murmur noted. No carotid bruits appreciated +2 radial pulses +2 femoral pulses non-palpable DP and PT pulses. Biphasic doppler signals noted in right DP down to base of first toe, Biphasic doppler signal noted in posterior tibial artery. Biphasic doppler signals noted L DP and PT. Gastrointestinal (Abdomen): non-distended, soft, NTTP Musculoskeletal: mild edema in right ankle area, no tenderness to bilateral lower extremities. Skin: right 1st toe with small superficial wound that appears to be healing right 2nd toe, dorsal aspect, with open wound to dorsal aspect and exposed bone at level of joint, + erythema surrounding the wound, currently no active drainage. Neurologic: difficult to assess, moves extremities equally, sensation grossly intact to feet. Results & Data Vital Signs (Past 12 Hours) Vital Signs Temp Pulse Pulse Resp BP BP Pulse Ox 05/12/25 07:31 36.3 C L 60 16 125/60 99 05/12/25 07:00 47 L 122/71 05/12/25 03:18 36.4 C L 48 L 12 116/74 100 05/12/25 01:51 05/11/25 23:28 36.5 C 47 L 12 95/54 L 95 05/11/25 23:07 36.5 C 49 L 12 95/54 L 95 05/11/25 23:07 05/11/25 21:59 Pulse Ox O2 Del Method O2 Del Method O2 Flow Rate O2 Flow Rate 05/12/25 07:31 Nasal Cannula 2 05/12/25 07:00 05/12/25 03:18 Nasal Cannula 2 05/12/25 01:51 Nasal Cannula 2 05/11/25 23:28 Nasal Cannula 2 05/11/25 23:07 Nasal Cannula 2 05/11/25 23:07 92 Nasal Cannula 2 05/11/25 21:59 Nasal Cannula 2 Laboratory Results 05/11/25 16:15 Aerobic Blood Culture - Pending Blood Anaerobic Blood Culture - Pending 05/11/25 16:21 Aerobic Blood Culture - Pending Blood Anaerobic Blood Culture - Pending 05/12/25 05/12/25 05/12/25 06:57 01:05 00:54 WBC 15.35 H RBC 4.03 L Hgb 11.7 L Hct 35.2 L MCV 87.3 MCH 29.0 MCHC 33.2 RDW Std Deviation 45.1 RDW Coeff of Miller 14.1 Plt Count 241 MPV 9.6 Immature Gran % (Auto) 0.8 Neut % (Auto) 86.9 Lymph % (Auto) 3.1 [place] % (Auto) 6.9 Eos % (Auto) 2.0 Baso % (Auto) 0.3 Neut # (Auto) 13.36 H Lymph # (Auto) 0.47 L [place] # (Auto) 1.06 H Eos # (Auto) 0.30 Baso # (Auto) 0.04 Immature Gran # (Auto) 0.12 ESR PT 21.1 H INR 2.1 H Sodium 135 L 134 L Potassium 3.3 L 3.3 L Chloride 95 L 95 L Carbon Dioxide 33 H 32 Anion Gap 7 7 BUN 33 H 35 H Creatinine 1.03 1.20 Est Cr Clr Drug Dosing 48.6 41.7 eGFR 69.44 57.81 BUN/Creatinine Ratio 32.0 H 29.2 H Glucose 99 95 POC Glucose 101 H Calcium 9.6 9.3 Magnesium 2.0 Total Bilirubin AST ALT Alkaline Phosphatase C-Reactive Protein Total Protein Albumin Globulin Albumin/Globulin Ratio Procalcitonin Nasal Screen MRSA (PCR) 05/11/25 05/11/25 12:10 12:05 WBC 18.59 H RBC 4.76 Hgb 13.5 L Hct 41.3 L MCV 86.8 MCH 28.4 MCHC 32.7 RDW Std Deviation 45.0 RDW Coeff of Miller 14.2 Plt Count 286 MPV 9.2 L Immature Gran % (Auto) 0.8 Neut % (Auto) 89.1 Lymph % (Auto) 3.1 [place] % (Auto) 5.8 Eos % (Auto) 0.9 Baso % (Auto) 0.3 Neut # (Auto) 16.58 H Lymph # (Auto) 0.58 L [place] # (Auto) 1.07 H Eos # (Auto) 0.16 Baso # (Auto) 0.05 Immature Gran # (Auto) 0.15 ESR 87 H PT 23.5 H INR 2.3 H Sodium 135 L Potassium 3.6 Chloride 94 L Carbon Dioxide 32 Anion Gap 9 BUN 31 H Creatinine 0.99 Est Cr Clr Drug Dosing 50.6 eGFR 72.82 BUN/Creatinine Ratio 31.3 H Glucose 104 H POC Glucose Calcium 10.0 Magnesium Total Bilirubin 1.1 H AST 26 ALT 14 Alkaline Phosphatase 95 C-Reactive Protein 8.59 H Total Protein 7.8 Albumin 4.1 Globulin 3.7 Albumin/Globulin Ratio 1.1 Procalcitonin 0.09 Nasal Screen MRSA (PCR) Negative Diagnostic Findings Foot X-Ray 05/11/25 12:03 XR foot RT min 3V routine CLINICAL HISTORY: Toe wound COMPARISON: None FINDINGS: There are atherosclerotic calcifications. Bandage artifact is present at the second toe. There is osseous destructive change at the mid and distal aspect of the second proximal phalanx. There is possible early osseous destructive change proximally at the second middle phalanx versus artifact from the overlying bandage. No other osseous destructive change seen. No fracture or dislocation. IMPRESSION: Osteomyelitis at the second proximal phalanx. Otherwise as described. ACT 112: Negative or not required by law. Electronically signed by: Shaji Edouard M.D. 05/11/2025 12:31 PM Foot X-Ray 05/11/25 13:48 XR foot RT min 3V routine CLINICAL HISTORY: Osteomyelitis right second toe COMPARISON: 05/11/2025 FINDINGS: There are atherosclerotic calcifications. There is bandage artifact at the second toe limiting evaluation. There is patchy lucency distally at the second proximal phalanx. There is a possible superimposed nondisplaced fracture at the distal aspect of the second proximal phalanx. No other fracture or dislocation seen. IMPRESSION: 1. Bandage artifact at the second toe. 2. Findings suggesting osteomyelitis distal aspect of the second proximal phalanx. 3. Possible underlying fracture distal aspect of the second proximal phalanx. ACT 112: Negative or not required by law. Electronically signed by: Shaji Edouard M.D. 05/11/2025 2:31 PM Duplex Scan Lower Extremity Artery 05/11/25 14:54 Technique: Grayscale, color Doppler and spectral waveform analysis imaging of the leg arteries was performed Findings: Triphasic and biphasic waveforms are seen within the right leg arteries. There is multifocal atherosclerotic plaque. There is an apparent stenosis of the posterior tibial artery Peak systolic velocities in centimeters per second are as follows: RESIDENTIAL DIRECTOR 55 PFA 37 Prox SFA 54 Mid SFA 78 Distal SFA 51 Popliteal 42 JENNIFER 36 BRICKMASON 165 Smith Pedis 40 Impression: Right leg atherosclerosis with a stenosis of the right BRICKMASON Electronically signed by Rikki Callaway 05-11-2025 5:04 PM Chest X-Ray 05/11/25 18:46 CR Exam(s): XR CXR 1 VIEW EXAM: XR Chest, 1 View CLINICAL HISTORY: Reason for exam: hypoxia, CHF. TECHNIQUE: Frontal view of the chest. COMPARISON: Prior chest x-ray from February 12, 2023. FINDINGS: Lungs: Mild to moderate peribronchial thickening of the central lower lobe bronchi with small patchy opacity at the right lung base. Pleural space: Unremarkable. No pneumothorax. Heart: Mild cardiomegaly. Status post mitral valve replacement. Mediastinum: Unremarkable. Normal mediastinal contour. Bones/joints: Status post median sternotomy with sternal wires intact. Diffuse osteopenia throughout the visualized bones. No acute fracture. IMPRESSION: Bronchitis with right lower lobe infiltrate. Communications: Verify Receipt Electronically signed by: Nakita Alan MD 05/11/25 23:28 PM Medications Administered Home Medications Medication Instructions Recorded Confirmed Last Taken vitamin B complex 1 tab PO DAILY 05/11/22 05/11/25 08/08/22 08:00 acetaminophen 500 mg tablet 500 mg PO Q4 PRN Pain 08/08/22 05/11/25 08/08/22 16:00 albuterol sulfate 2.5 mg/3 mL 2.5 mg inhalation Q6H PRN Wheezing 06/25/23 09/23/25 Unknown (0.083 %) solution for nebulization docusate sodium 100 mg capsule 100 mg PO BID 02/10/23 05/11/25 Unknown (Colace) fluticasone propionate 50 50 mcg intranasal DAILY 02/10/23 05/11/25 Unknown mcg/actuation nasal spray,suspension gabapentin 100 mg tablet 200 mg PO BID 02/10/23 05/11/25 Unknown metoprolol succinate 25 mg 25 mg PO DAILY 02/10/23 05/11/25 Unknown tablet,extended release 24 hr multivitamin 1 tab PO DAILY 02/10/23 05/11/25 Unknown polyethylene glycol 3350 17 17 g PO DAILY Constipation 02/10/23 05/11/25 Unknown gram/dose oral powder (Miralax) rosuvastatin 20 mg tablet 20 mg PO DAILY 02/10/23 05/11/25 Unknown spironolactone 25 mg tablet 25 mg PO QAM #30 tabs 02/13/23 05/11/25 Unknown torsemide 40 mg tablet 60 mg (1.5 x 40 mg) PO DAILY #30 02/13/23 05/11/25 Unknown tabs metolazone 5 mg tablet 5 mg PO 3XWK 05/06/25 05/11/25 Unknown warfarin 5 mg tablet 5 mg PO 3XWK 05/06/25 05/11/25 Unknown amoxicillin 500 mg capsule 2,000 mg PO DIRECTED PRN Dental 05/11/25 05/11/25 Unknown Procedures ceramides 1 applic topical Q12H PRN Dry Skin 05/11/25 05/11/25 Unknown 1,3,2-KL-aufaphjmorb-hyaluronic acid ER lotion (CeraVe PM lotion,extended release) zncoouznrgwthvyl-clygbcxblc-tabdsftj 2 spray mucous membrane Q4H PRN 05/11/25 05/11/25 Unknown 5 mg-5 %-30 % mucosal spray Sore Throat famotidine 20 mg tablet 20 mg PO DAILY 05/11/25 05/11/25 Unknown ferrous sulfate 325 mg (65 mg 325 mg PO BID 05/11/25 05/11/25 Unknown iron) tablet,delayed release guaifenesin 600 mg tablet, 600 mg PO Q12H PRN Cough/Congestion 05/11/25 05/11/25 Unknown extended release 12 hr (Mucinex) memantine 5 mg tablet 5 mg PO BID 05/11/25 05/11/25 Unknown nystatin 100,000 unit/gram topical 1 applic topical DIRECTED 05/11/25 05/11/25 Unknown powder potassium chloride 20 mEq 20 meq PO BID 05/11/25 05/11/25 Unknown tablet,extended release(part/cryst) sertraline 100 mg tablet 100 mg PO DAILY 05/11/25 05/11/25 Unknown warfarin 2.5 mg tablet 2.5 mg PO 4XWK 05/11/25 05/11/25 Unknown Active Medications Generic Name Dose Route Start Last Admin Trade Name Freq PRN Reason Stop Dose Admin Acetaminophen 1,000 mg 05/11/25 14:40 05/11/25 20:10 Acetaminophen 500 Mg Tab PO 06/10/25 14:39 1,000 mg Q8H PRN Administration pain/fever Docusate Sodium 100 mg 05/11/25 21:00 05/11/25 20:09 Docusate Sodium 100 Mg Cap PO 06/10/25 20:59 100 mg BID PATTIE Administration Famotidine 20 mg 05/11/25 17:45 05/12/25 09:27 Famotidine 20 Mg Tab PO 06/10/25 17:44 20 mg DAILY PATTIE Administration Ferrous Sulfate 325 mg 05/11/25 21:00 05/12/25 09:21 Ferrous Sulfate 325 Mg Tab PO 06/10/25 20:59 325 mg BID PATTIE Administration Fluticasone Propionate 2 sprays 05/11/25 17:45 05/12/25 09:21 Fluticasone Propionate Na Spr 16 Gm Btl NA 06/10/25 17:44 2 sprays DAILY PATTIE Administration Gabapentin 200 mg 05/11/25 21:00 05/12/25 09:22 Gabapentin 100 Mg Cap PO 06/10/25 20:59 200 mg BID PATTIE Administration Cefepime HCl 2,000 mg in 20 mls @ 5 mls/min 05/11/25 18:00 05/12/25 05:46 Maxipime 2000mg IV 06/22/25 17:59 5 mls/min Q12H PATTIE Administration Protocol Vancomycin HCl 1,250 mg/ 275 mls @ 200 mls/hr 05/12/25 09:00 05/12/25 09:23 Sodium Chloride IV 06/23/25 08:59 200 mls/hr DAILY@0900 PATTIE Administration Melatonin 3 mg 05/11/25 14:40 05/11/25 20:09 Melatonin 3 Mg Tab PO 06/10/25 14:39 3 mg HS PRN Administration Insomnia Memantine 5 mg 05/11/25 21:00 05/12/25 09:22 Memantine Hcl 5 Mg Tab PO 06/10/25 20:59 5 mg BID PATTIE Administration Metoprolol Succinate 25 mg 05/11/25 17:45 05/11/25 18:34 Metoprolol Succ 25mg Ext Rel Tab PO 06/10/25 17:44 Not Given DAILY PATTIE Nystatin 1 appln 05/11/25 17:45 05/12/25 09:20 Nystatin Powder 15gm Btl EXT 06/10/25 17:44 1 appln QS PATTIE Administration Potassium Chloride 20 meq 05/11/25 21:00 05/12/25 09:27 Potassium Chloride Crtab 20 Meq Tabcr PO 06/10/25 20:59 20 meq BID PATTIE Administration Rosuvastatin Calcium 20 mg 05/12/25 09:00 05/12/25 09:22 Rosuvastatin Calcium 20 Mg Tab PO 06/11/25 08:59 20 mg DAILY PATTIE Administration Sertraline HCl 100 mg 05/11/25 17:45 05/12/25 09:23 Sertraline Hcl 100 Mg Tablet PO 06/10/25 17:44 100 mg DAILY PATTIE Administration Spironolactone 25 mg 05/12/25 09:00 05/12/25 09:23 Spironolactone 25 Mg Tab PO 06/11/25 08:59 25 mg QAM PATTIE Administration Torsemide 60 mg 05/12/25 09:00 05/12/25 09:23 Torsemide 20 Mg Tab PO 06/11/25 08:59 60 mg DAILY PATTIE Administration PG Care Time/CCT Total # of Minutes Spent Total Time Spent with Patient: Total time spent is greater than 50% in coordination of care (as documented) at patient's floor/unit and/or counseling patient: [place] [address] INT INP/OBS CARE 2/55MIN Patient Type New History Detailed Exam Detailed Medical Decision Making High Complexity Diagnoses Osteomyelitis of second toe of right foot M86.9 Peripheral arterial disease I73.9
[2025-05-12] MEDS: POLYETHYLENE (MIRALAX) 17 GM PACK PO SCH (11:46)
--- NOTE | 2025-05-12 11:52 | Ultrasound Report ---
US ankle/brachial index ltd CLINICAL HISTORY: R 2nd toe OM, past MADDY NC COMPARISON STUDY: None FINDINGS: Right MADDY is 0.55, consistent with moderate arterial disease. Left MADDY is 0.55, consistent with moderate arterial disease. IMPRESSION: Abnormal bilateral MADDY. ACT 112: Negative or not required by law. Electronically signed by: Shaji Edouard M.D. 05/12/2025 11:50 AM
[2025-05-12] MEDS ORDERED: PHA DELIRIUM CONSULT PRN (12:05)
[2025-05-12] MEDS: POTASSIUM CHLORIDE CRTAB 20 MEQ TABCR PO ONE (12:12)
--- NOTE | 2025-05-12 12:46 | Hospitalist Progress Note ---
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 toe/Osteomyelitis - seen in Wound Care office as outpt day of admission, referred to ER; recent Hx of month-long Tx w/ various Abx - bone exposed with both dorsal lesions of 2nd r. toe, pt w/out pain, decreased sensation - both lesions debrided in outside office and wound Cx collected and pending - Podiatry consult placed (plan for 2nd r. toe amputation on 05/13/25) - Foot X-ray: 1) osteomyelitis of 2nd r. phalanx - WBC, 18.6 upon admission; CRP, 8.6 and ESR, 87 also upon admission - s/p Ceftriaxone, 2g, IV and Vancomycin, 2g, IV given in ER - continue Cefepime and Vancomycin - trend CBC AM, daily - wound/surgical Cx will be obtained during surgery #Bradycardia, suspect 2/2 to metoprolol dose -hold metoprolol -atropine prn if needed -will monitor #Long-term potassium supplementation (even while on spironolactone) - trend BMP AM daily -gave 40mEq total today -will monitor Chronic conditions #AFib - hold warfarin but resume after amputation surgery, daily INR's - continue metoprolol #HFrEF - hold spironolactone 24 hrs before surgery but continue afterwards #Depression - continue sertraline #Dementia -continue memantine Code status: DNR/DNI Disposition: Med-Surg FENGI: regular diet, NPO after midnight VTE Prophylaxis: Coumadin (held for now); plan to bridge [facility] tomorrow Admission and Anticipated Discharge Date Admission Date: May 11, 2025 Supervising Physician Co-Signing Physician Notes I personally examined the patient and verified all nicholas points of history and exam, discussed case, and agree with decision making with Dr Dean If no acute complaints. Denies any pain. No foot pain. No chest pain no shortness of breath. Nursing notes that after he ate he did appear to aspirate a little and has had slightly rhonchorous breathing since but no respiratory distress. Vitals noted, in general he is awake and alert but very confused. Pleasant. Breathing unlabored but he does have diffuse rhonchi that sound more like they are referred from upper airway than in the lungs themselves but are heard bilaterally. No accessory muscle use no appearance of respiratory distress. Extremities without tracking erythema. Foot dressed osteomyelitis of the foot with longstanding open ulcerationcontinue antibiotic coverage. Agree with cardiology that while he does have higher risk for cardiac complications, the risk/benefit of not treating the foot infection appropriately outweighs his perioperative cardiac risks. Await surgical procedure. Tailor antibiotics based on procedure/results/operative cultures. CAD/chronic HFrEF aortic valve replacement with mechanical valveall appears to be compensated, follow INRanticipate bridging with Lovenox once he is less than 2.0 for his INR. dementia with what appears to be a fairly significant functional impairmentappears most likely around baseline mentation. Continue to follow Dysphagia/probable aspiration. No respiratory distress, and given that the majority of aspiration events do not end up with a pneumonia, no specific treatment (although even if he did develop an aspiration pneumonia the cefepime he is currently on for his foot would more than suffice). Will try to determine if [facility], if so would have them continue to evaluate and treat; if not, may be beneficial to him to have speech therapy evaluate here. Subjective Overnight pt became bradycardic and was given 2 doses of atropine. Today, he feels fine and has no complaints. He denies fever, chills, CP, LH, dizziness, palpitations, N/V/C/D, abdominal pain, and complaints. Review of Systems Review of Systems: per HPI Physical Exam Physical Exam: GA: well groomed, well nourished in no apparent distress. AAO to person. Place [place]. Year 1919. HEENT: head normocephalic, atraumatic. EOMI RESP: vesicular breath sounds b/l. No wheezes, rhonchi, or rales CARDIOVASCULAR: S1 and S2 heard. No murmurs, rubs, or gallops. Radial pulses 1+ irregularly irregular GI: no tenderness or masses felt to palpation MSK: no gross abnormalities or focal deficits SKIN: warm, dry, no edema. wound 2 wounds of dorsal aspect r. 2nd toe, bone exposed PSYCH: appropriate mood and affect NEURO: no focal deficits. speech delayed Results & Data Results & Data Vital Signs (Past 12 Hours) Vital Signs Temp Pulse Pulse Resp BP BP Pulse Ox 05/12/25 11:23 36.4 C L 51 L 16 112/59 L 100 05/12/25 07:31 36.3 C L 60 16 125/60 99 05/12/25 07:00 47 L 122/71 05/12/25 03:18 36.4 C L 48 L 12 116/74 100 05/12/25 01:51 O2 Del Method O2 Flow Rate 05/12/25 11:23 Nasal Cannula 2 05/12/25 07:31 Nasal Cannula 2 05/12/25 07:00 05/12/25 03:18 Nasal Cannula 2 05/12/25 01:51 Nasal Cannula 2 Resident Activity Tracking Resident Involvement: Resident Care Provided Care Provided: Adult Hospital Medicine (3) Stage IV pressure ulcer Laterality: right Pressure injury location: toe Qualified Code(s): L89.894 - Pressure ulcer of other site, stage 4
--- NOTE | 2025-05-12 15:58 | Billing Data ---
Date of Service May 12, 2025 Coding Level of Care Code 10015 SUB INP/OBS CARE
[2025-05-12] MEDS: guaiFENesin 600 MG TABCR PO PRN (19:58)
[2025-05-13 04:49] LABS: Hematocrit (blood only) 36.2 % (42.0-52.0); Hemoglobin 11.9 g/dl (14.0-18.0); Immature Granulocytes # (auto) 0.15 K/uL (0.01-0.20); Immature Granulocytes % (auto) 0.9 %; Mean Corpuscular Hemoglobin 28.4 pg (25.0-34.0); Mean Corpuscular Volume 86.4 fL (80.0-100.0); Platelet Count 241 K/uL (130-400); RDW Standard Deviation 44.2 fL (36.4-46.3); Red Blood Count 4.19 M/uL (4.70-6.10); White Blood Count 15.97 K/ul (4.8-10.8)
[2025-05-13 05:15] LABS: INR 2.5 (0.9-1.1); Prothrombin Time 25.1 Seconds (9.0-12.0)
[2025-05-13 05:47] LABS: Alanine Aminotransferase 10.0 U/L (7-52); Albumin Globulin Ratio 1.1 (0.9-2); Albumin Level 3.6 gm/dl (3.4-5.0); Alkaline Phosphatase 77.0 U/L (34-104); Anion Gap 10.0 (3-11); Bilirubin,Total 0.6 mg/dl (0.2-1.0); Blood Urea Nitrogen 35.0 mg/dl (6-23); Calcium 9.4 mg/dl (8.6-10.3); Carbon Dioxide 27.0 mmol/L (21-32); Chloride 98.0 mmol/L (98-107); Creatinine Clr Calc Pharmacy 48.6 ml/min; Globulin 3.4 gm/dl (2.5-4.0); Glucose 104.0 mg/dl (70-99(Fasting)); Potassium 3.3 mmol/L (3.5-5.1); Sodium 135.0 mmol/L (136-145); Total Protein 7.0 gm/dl (6.0-8.3)
[2025-05-13] MEDS ORDERED: LIDOCAINE 2% 2 ML VIAL/AMP(20MG/ML) INFIL ONE (07:10)
[2025-05-13] MEDS ORDERED: PROPOFOL IV EMULSION 10 MG/ML 20 ML VIAL IV ONE (07:10)
[2025-05-13] MEDS ORDERED: DEXAMETHASONE SOD INJ 4 MG/ML VIAL ONE (07:10)
[2025-05-13] MEDS ORDERED: GLYCOPYRROLATE 0.2 MG/ML VIAL ONE (07:10)
[2025-05-13] MEDS ORDERED: ONDANSETRON INJ 2 MG/ML 2 ML VIAL ONE (07:10)
--- NOTE | 2025-05-13 07:56 | Hospitalist Progress Note ---
Date of Service May 13, 2025 Assessment & Plan (1) Peripheral arterial disease: (2) Osteomyelitis of second toe of right foot: (3) Stage IV pressure ulcer: (4) Anticoagulant long-term use: Plan #Stage IV Pressure ulcer(s) of 2nd r. toe/Osteomyelitis #partial Right Second Toe Amputation - seen in Wound Care office as outpt day of admission, referred to ER; recent Hx of month-long Tx w/ various Abx - bone exposed with both dorsal lesions of 2nd r. toe, pt w/out pain, decreased sensation - both lesions debrided in outside office and wound Cx collected and pending - Podiatry on board, appreciate recs - Foot X-ray: osteomyelitis of 2nd r. phalanx - continue Cefepime and Vancomycin until cultures come back - trend CBC AM daily - wound/surgical Cx will be obtained during surgery #Bradycardia, suspect 2/2 to metoprolol dose -asx and stable -will monitor #Long-term potassium supplementation (even while on spironolactone) - trend BMP AM daily Chronic conditions #AFib - hold warfarin but resume after amputation surgery, daily INR's - continue metoprolol #HFrEF - spironolactone #Depression - continue sertraline #Dementia -continue memantine Code status: DNR/DNI Disposition: Med-Surg FENGI: regular diet, speech eval placed for instructions VTE Prophylaxis: Coumadin (held for now) Admission and Anticipated Discharge Date Admission Date: May 11, 2025 Supervising Physician Co-Signing Physician Notes I personally examined the patient and verified all nicholas points of history and exam, discussed case, and agree with decision making with Dr Dean Seen postop. No spontaneous complaints. On directed questioning no pain and no shortness of breath. Vitals noted, in general he is awake and alert but very confused. Pleasant. Breathing unlabored no accessory muscle use no appearance of respiratory distress. Extremities without tracking erythema. Foot dressed osteomyelitis of the foot with longstanding open ulcerationcontinue antibiotic coverage. await surgical cultures. Discussed with podiatry regarding duration of antibiotics given that they appear to have removed the infected bone, simplifying the long-term situation greatly. CAD/chronic HFrEF aortic valve replacement with mechanical valveall appears to be compensated, follow INR dementia with what appears to be a fairly significant functional impairmentappears most likely around baseline mentation. Continue to follow, No acute issues Dysphagia/probable aspiration. No respiratory distress, and given that the majority of aspiration events do not end up with a pneumonia, no specific treatment (although even if he did develop an aspiration pneumonia the cefepime he is currently on for his foot would more than suffice). modify diet as per his detention regimen, speech assistance appreciated. Subjective No overnight events. s/p p Right Second Toe Amputation this morning. Review of Systems Review of Systems: per HPI Physical Exam Physical Exam: GA: well groomed, well nourished in no apparent distress. Appears tired. AAO to person. HEENT: head normocephalic, atraumatic. EOMI RESP: vesicular breath sounds b/l. No wheezes, rhonchi, or rales CARDIOVASCULAR: S1 and S2 heard. No murmurs, rubs, or gallops. GI: no tenderness or masses felt to palpation MSK: no gross abnormalities or focal deficits SKIN: warm, dry, no edema. PSYCH: appropriate mood and affect NEURO: no focal deficits. speech delayed Results & Data Results & Data Vital Signs (Past 12 Hours) Vital Signs Temp Pulse Pulse Pulse Resp BP Pulse Ox 05/13/25 07:23 51 L 05/13/25 03:36 37 C 57 L 16 101/54 L 96 05/13/25 00:32 109/64 05/12/25 23:06 36.8 C 60 18 98/54 L 98 05/12/25 21:54 55 L 05/12/25 21:06 O2 Del Method 05/13/25 07:23 05/13/25 03:36 Room Air 05/13/25 00:32 05/12/25 23:06 Room Air 05/12/25 21:54 05/12/25 21:06 Room Air Resident Activity Tracking Resident Involvement: Resident Care Provided Care Provided: Adult Hospital Medicine (3) Stage IV pressure ulcer Laterality: right Pressure injury location: toe Qualified Code(s): L89.894 - Pressure ulcer of other site, stage 4
[2025-05-13] MEDS: VANCOMYCIN LEVEL ONE (08:44)
--- NOTE | 2025-05-13 08:45 | XCELERA ---
[id number]
[2025-05-13] MEDS: LACTATED RINGER'S 1,000 ML IV SCH (09:06)
[2025-05-13] MEDS ORDERED: PROMETHAZINE HCL 6.25 MG in SODIUM CHLORIDE 0.9% 50 ML IV PRN (09:18)
[2025-05-13] MEDS ORDERED: ATROPINE SULFATE 0.1 MG/ML 10ML SYR IV PRN (09:18)
--- NOTE | 2025-05-13 09:18 | Anesthesiology Consultation ---
Date of Service May 13, 2025 Assessment & Plan ASA ASA4 Proposed Anesthesia Anesthesia Type: MAC Risk / Benefits Reviewed With: PT / POA / Parent / Guardian, Accepts Plan and Informed Consent Obtained History Surgery Operation Date: 05/13/25 09:25 Proposed Procedures p Right Second Toe Amputation - Jony Saavedra DPM Height/Weight Height: 5 ft 9 in Weight: 84.1 kg Allergies Allergy/AdvReac Type Severity Reaction Status Date / Time Sulfa (Sulfonamide AdvReac Intermediate Unknown Verified 05/06/25 13:22 Antibiotics) Medications Home Medications Medication Instructions Recorded Confirmed Last Taken vitamin B complex 1 tab PO DAILY 05/11/22 05/11/25 08/08/22 08:00 acetaminophen 500 mg tablet 500 mg PO Q4 PRN Pain 08/08/22 05/11/25 08/08/22 16:00 albuterol sulfate 2.5 mg/3 mL 2.5 mg inhalation Q6H PRN Wheezing 02/10/23 05/11/25 Unknown (0.083 %) solution for nebulization docusate sodium 100 mg capsule 100 mg PO BID 02/10/23 05/11/25 Unknown (Colace) fluticasone propionate 50 50 mcg intranasal DAILY 02/10/23 05/11/25 Unknown mcg/actuation nasal spray,suspension gabapentin 100 mg tablet 200 mg PO BID 02/10/23 05/11/25 Unknown metoprolol succinate 25 mg 25 mg PO DAILY 02/10/23 05/11/25 Unknown tablet,extended release 24 hr multivitamin 1 tab PO DAILY 02/10/23 05/11/25 Unknown polyethylene glycol 3350 17 17 g PO DAILY Constipation 02/10/23 05/11/25 Unknown gram/dose oral powder (Miralax) rosuvastatin 20 mg tablet 20 mg PO DAILY 02/10/23 05/11/25 Unknown spironolactone 25 mg tablet 25 mg PO QAM #30 tabs 02/13/23 05/11/25 Unknown torsemide 40 mg tablet 60 mg (1.5 x 40 mg) PO DAILY #30 02/13/23 05/11/25 Unknown tabs metolazone 5 mg tablet 5 mg PO 3XWK 05/06/25 05/11/25 Unknown warfarin 5 mg tablet 5 mg PO 3XWK 05/06/25 05/11/25 Unknown amoxicillin 500 mg capsule 2,000 mg PO DIRECTED PRN Dental 05/11/25 05/11/25 Unknown Procedures ceramides 1 applic topical Q12H PRN Dry Skin 05/11/25 05/11/25 Unknown 1,3,2-MR-ppdalxifrga-hyaluronic acid ER lotion (CeraVe PM lotion,extended release) hdwdnfnfguhwrpvc-xwcfvmjnny-zsfgruut 2 spray mucous membrane Q4H PRN 05/11/25 05/11/25 Unknown 5 mg-5 %-30 % mucosal spray Sore Throat famotidine 20 mg tablet 20 mg PO DAILY 05/11/25 05/11/25 Unknown ferrous sulfate 325 mg (65 mg 325 mg PO BID 05/11/25 05/11/25 Unknown iron) tablet,delayed release guaifenesin 600 mg tablet, 600 mg PO Q12H PRN Cough/Congestion 05/11/25 05/11/25 Unknown extended release 12 hr (Mucinex) memantine 5 mg tablet 5 mg PO BID 05/11/25 05/11/25 Unknown nystatin 100,000 unit/gram topical 1 applic topical DIRECTED 05/11/25 05/11/25 Unknown powder potassium chloride 20 mEq 20 meq PO BID 05/11/25 05/11/25 Unknown tablet,extended release(part/cryst) sertraline 100 mg tablet 100 mg PO DAILY 05/11/25 05/11/25 Unknown warfarin 2.5 mg tablet 2.5 mg PO 4XWK 05/11/25 05/11/25 Unknown Active Medications Generic Name Dose Route Start Last Admin Trade Name Freq PRN Reason Stop Dose Admin Acetaminophen 1,000 mg 05/11/25 14:40 05/11/25 20:10 Acetaminophen 500 Mg Tab PO 06/10/25 14:39 1,000 mg Q8H PRN Administration pain/fever Docusate Sodium 100 mg 05/11/25 21:00 05/12/25 19:56 Docusate Sodium 100 Mg Cap PO 06/10/25 20:59 Not Given BID PATTIE Famotidine 20 mg 05/11/25 17:45 05/12/25 09:27 Famotidine 20 Mg Tab PO 06/10/25 17:44 20 mg DAILY PATTIE Administration Ferrous Sulfate 325 mg 05/11/25 21:00 05/12/25 19:57 Ferrous Sulfate 325 Mg Tab PO 06/10/25 20:59 325 mg BID PATTIE Administration Fluticasone Propionate 2 sprays 05/11/25 17:45 05/12/25 09:21 Fluticasone Propionate Na Spr 16 Gm Btl NA 06/10/25 17:44 2 sprays DAILY PATTIE Administration Gabapentin 200 mg 05/11/25 21:00 05/12/25 19:58 Gabapentin 100 Mg Cap PO 06/10/25 20:59 200 mg BID PATTIE Administration Guaifenesin 600 mg 05/11/25 17:38 05/12/25 19:58 Guaifenesin 600 Mg Tabcr PO 06/10/25 17:37 600 mg Q12H PRN Administration Cough/Congestion Cefepime HCl 2,000 mg in 20 mls @ 5 mls/min 05/11/25 18:00 05/13/25 05:56 Maxipime 2000mg IV 06/22/25 17:59 5 mls/min Q12H PATTIE Administration Protocol Vancomycin HCl 1,250 mg/ 275 mls @ 200 mls/hr 05/12/25 09:00 05/13/25 08:38 Sodium Chloride IV 06/23/25 08:59 200 mls/hr DAILY@0900 PATTIE Administration Lactated Ringer's 1,000 mls @ 15 mls/hr 05/13/25 09:15 05/13/25 09:06 Lr IV 05/16/25 09:14 15 mls/hr .Q24H PATTIE Administration Melatonin 3 mg 05/11/25 14:40 05/12/25 19:56 Melatonin 3 Mg Tab PO 06/10/25 14:39 3 mg HS PRN Administration Insomnia Memantine 5 mg 05/11/25 21:00 05/12/25 19:57 Memantine Hcl 5 Mg Tab PO 06/10/25 20:59 5 mg BID PATTIE Administration Metoprolol Succinate 25 mg 05/11/25 17:45 05/11/25 18:34 Metoprolol Succ 25mg Ext Rel Tab PO 06/10/25 17:44 Not Given DAILY PATTIE Nystatin 1 appln 05/11/25 17:45 05/13/25 08:43 Nystatin Powder 15gm Btl EXT 06/10/25 17:44 1 appln QS PATTIE Administration Polyethylene Glycol 17 gm 05/12/25 09:00 05/12/25 11:46 Polyethylene (Miralax) 17 Gm Pack PO 06/11/25 08:59 Not Given DAILY PATTIE Potassium Chloride 20 meq 05/11/25 21:00 05/12/25 19:56 Potassium Chloride Crtab 20 Meq Tabcr PO 06/10/25 20:59 20 meq BID PATTIE Administration Rosuvastatin Calcium 20 mg 05/12/25 09:00 05/12/25 09:22 Rosuvastatin Calcium 20 Mg Tab PO 06/11/25 08:59 20 mg DAILY PATTIE Administration Sertraline HCl 100 mg 05/11/25 17:45 05/12/25 09:23 Sertraline Hcl 100 Mg Tablet PO 06/10/25 17:44 100 mg DAILY PATTIE Administration Spironolactone 25 mg 05/12/25 09:00 05/12/25 09:23 Spironolactone 25 Mg Tab PO 06/11/25 08:59 25 mg QAM PATTIE Administration Torsemide 60 mg 05/12/25 09:00 05/12/25 09:23 Torsemide 20 Mg Tab PO 06/11/25 08:59 60 mg DAILY PATTIE Administration NPO Date Last Intake of Fluids: 05/12/25 Time Last Intake of Fluids: 23:00 Date Last Intake of Solids: 05/12/25 Time Last Intake of Solids: 23:00 Past Medical History Medical History Rheumatic heart disease Permanent atrial fibrillation Ischemic cardiomyopathy Chronic systolic (congestive) heart failure Improved volume status and dyspnea with initiation of diuretic per 09/2020 cardio records Intraventricular conduction delay Chronic per records Hyperlipidemia CAD (coronary artery disease) S/p 5 vessel CABG Atrial fibrillation On Coumadin - rate controlled per cardio Black stool Acute cholecystitis Acute cholangitis due to calculus of bile duct with obstruction Acute metabolic encephalopathy Encounter for pre-operative examination Cholelithiasis Memory deficits DVT prophylaxis Abnormal ENT evaluation Cholangitis Ischemic cardiomyopathy Mild decline in LVEF per 09/2020 ECHO (EF 25-30%) Aortic valve disease 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 Father , 77 Myocardial infarction Brother Diabetes Past Surgical History Surgical History S/P AVR Status post incision and drainage History of cholecystectomy History of hip surgery Right hip nailin07/03/20: Grade view 2, MAC#3, ETT 7.5 at [facility] S/P CABG x 5 2002 Aortic valve replaced (during CABG- 2002) Past Anesthesia History No Hx of Anesthesia Complications and No Family Hx of Anesthesia Complications History of PONV No Hx of PONV and No Hx of Motion Sickness Social History Smoking Status: Never smoker Do You Dip or Chew Tobacco: No Hx Alcohol Use: No Alcohol type: beer and wine alcohol intake frequency: holidays/special occasions only Hx Substance Use: No substance use type: does not use Physical Exam Vital Signs Last Vital Signs Temp 36.6 C 05/13/25 08:54 Pulse 56 L 05/13/25 08:54 Resp 20 05/13/25 08:54 BP 123/59 L 05/13/25 08:54 Pulse Ox 95 05/13/25 08:54 O2 Del Method Room Air 05/13/25 08:54 O2 Flow Rate 2 05/12/25 15:07 Constitutional no acute distress ENMT Mouth: + dentition abnormality (multiple missing teeth; none loose) and + small oral opening Thyromental Distance: > or= 3.5 Finger Breadths Mallampati Class: III Neck normal visual inspection Respiratory normal respiratory effort; no respiratory distress Auscultation: lungs clear to auscultation bilaterally Cardiovascular Rate/Rhythm: regular rate and regular rhythm Heart Sounds: no murmur Musculoskeletal Spine: normal cervical ROM Psychiatric Orientation: alert Testing Laboratory Results 05/13/25 04:26 05/13/25 04:26 PT 25.1 Seconds (9.0-12.0) H 05/13/25 04:26 INR 2.5 (0.9-1.1) H 05/13/25 04:26 05/11/25 16:15 Aerobic Blood Culture - Preliminary Blood No growth in Aerobic bottle after 24 hours. Anaerobic Blood Culture - Preliminary No growth in Anaerobic bottle after 24 hours. 05/11/25 16:21 Aerobic Blood Culture - Preliminary Blood No growth in Aerobic bottle after 24 hours. Anaerobic Blood Culture - Preliminary No growth in Anaerobic bottle after 24 hours. Day of Procedure Evaluation. Date of Surgery May 13, 2025 Height/Weight Height: 5 ft 9 in Weight: 84.1 kg Vital Signs Last Vital Signs Temp 36.6 C 05/13/25 08:54 Pulse 56 L 05/13/25 08:54 Resp 20 05/13/25 08:54 BP 123/59 L 05/13/25 08:54 Pulse Ox 95 05/13/25 08:54 O2 Del Method Room Air 05/13/25 08:54 O2 Flow Rate 2 05/12/25 15:07 Allergies Allergy/AdvReac Type Severity Reaction Status Date / Time Sulfa (Sulfonamide AdvReac Intermediate Unknown Verified 05/06/25 13:22 Antibiotics) Medications Home Medications Medication Instructions Recorded Confirmed Last Taken vitamin B complex 1 tab PO DAILY 05/11/22 05/11/25 08/08/22 08:00 acetaminophen 500 mg tablet 500 mg PO Q4 PRN Pain 08/08/22 05/11/25 08/08/22 16:00 albuterol sulfate 2.5 mg/3 mL 2.5 mg inhalation Q6H PRN Wheezing 02/10/23 05/11/25 Unknown (0.083 %) solution for nebulization docusate sodium 100 mg capsule 100 mg PO BID 02/10/23 05/11/25 Unknown (Colace) fluticasone propionate 50 50 mcg intranasal DAILY 02/10/23 05/11/25 Unknown mcg/actuation nasal spray,suspension gabapentin 100 mg tablet 200 mg PO BID 02/10/23 05/11/25 Unknown metoprolol succinate 25 mg 25 mg PO DAILY 02/10/23 05/11/25 Unknown tablet,extended release 24 hr multivitamin 1 tab PO DAILY 02/10/23 05/11/25 Unknown polyethylene glycol 3350 17 17 g PO DAILY Constipation 02/10/23 05/11/25 Unknown gram/dose oral powder (Miralax) rosuvastatin 20 mg tablet 20 mg PO DAILY 02/10/23 05/11/25 Unknown spironolactone 25 mg tablet 25 mg PO QAM #30 tabs 02/13/23 05/11/25 Unknown torsemide 40 mg tablet 60 mg (1.5 x 40 mg) PO DAILY #30 02/13/23 05/11/25 Unknown tabs metolazone 5 mg tablet 5 mg PO 3XWK 05/06/25 05/11/25 Unknown warfarin 5 mg tablet 5 mg PO 3XWK 05/06/25 05/11/25 Unknown amoxicillin 500 mg capsule 2,000 mg PO DIRECTED PRN Dental 05/11/25 05/11/25 Unknown Procedures ceramides 1 applic topical Q12H PRN Dry Skin 05/11/25 05/11/25 Unknown 1,3,1-ZJ-kluvmwmoyny-hyaluronic acid ER lotion (CeraVe PM lotion,extended release) zhughzenyvgvbubs-gkucbvjlcq-qxhnnuce 2 spray mucous membrane Q4H PRN 05/11/25 05/11/25 Unknown 5 mg-5 %-30 % mucosal spray Sore Throat famotidine 20 mg tablet 20 mg PO DAILY 05/11/25 05/11/25 Unknown ferrous sulfate 325 mg (65 mg 325 mg PO BID 05/11/25 05/11/25 Unknown iron) tablet,delayed release guaifenesin 600 mg tablet, 600 mg PO Q12H PRN Cough/Congestion 05/11/25 05/11/25 Unknown extended release 12 hr (Mucinex) memantine 5 mg tablet 5 mg PO BID 05/11/25 05/11/25 Unknown nystatin 100,000 unit/gram topical 1 applic topical DIRECTED 05/11/25 05/11/25 Unknown powder potassium chloride 20 mEq 20 meq PO BID 05/11/25 05/11/25 Unknown tablet,extended release(part/cryst) sertraline 100 mg tablet 100 mg PO DAILY 05/11/25 05/11/25 Unknown warfarin 2.5 mg tablet 2.5 mg PO 4XWK 05/11/25 05/11/25 Unknown Active Medications Generic Name Dose Route Start Last Admin Trade Name Freq PRN Reason Stop Dose Admin Acetaminophen 1,000 mg 05/11/25 14:40 05/11/25 20:10 Acetaminophen 500 Mg Tab PO 06/10/25 14:39 1,000 mg Q8H PRN Administration pain/fever Docusate Sodium 100 mg 05/11/25 21:00 05/12/25 19:56 Docusate Sodium 100 Mg Cap PO 06/10/25 20:59 Not Given BID PATTIE Famotidine 20 mg 05/11/25 17:45 05/12/25 09:27 Famotidine 20 Mg Tab PO 06/10/25 17:44 20 mg DAILY PATTIE Administration Ferrous Sulfate 325 mg 05/11/25 21:00 05/12/25 19:57 Ferrous Sulfate 325 Mg Tab PO 06/10/25 20:59 325 mg BID PATTIE Administration Fluticasone Propionate 2 sprays 05/11/25 17:45 05/12/25 09:21 Fluticasone Propionate Na Spr 16 Gm Btl NA 06/10/25 17:44 2 sprays DAILY PATTIE Administration Gabapentin 200 mg 05/11/25 21:00 05/12/25 19:58 Gabapentin 100 Mg Cap PO 06/10/25 20:59 200 mg BID PATTIE Administration Guaifenesin 600 mg 05/11/25 17:38 05/12/25 19:58 Guaifenesin 600 Mg Tabcr PO 06/10/25 17:37 600 mg Q12H PRN Administration Cough/Congestion Cefepime HCl 2,000 mg in 20 mls @ 5 mls/min 05/11/25 18:00 05/13/25 05:56 Maxipime 2000mg IV 06/22/25 17:59 5 mls/min Q12H PATTIE Administration Protocol Vancomycin HCl 1,250 mg/ 275 mls @ 200 mls/hr 05/12/25 09:00 05/13/25 08:38 Sodium Chloride IV 06/23/25 08:59 200 mls/hr DAILY@0900 PATTIE Administration Lactated Ringer's 1,000 mls @ 15 mls/hr 05/13/25 09:15 05/13/25 09:06 Lr IV 05/16/25 09:14 15 mls/hr .Q24H PATTIE Administration Melatonin 3 mg 05/11/25 14:40 05/12/25 19:56 Melatonin 3 Mg Tab PO 06/10/25 14:39 3 mg HS PRN Administration Insomnia Memantine 5 mg 05/11/25 21:00 05/12/25 19:57 Memantine Hcl 5 Mg Tab PO 06/10/25 20:59 5 mg BID PATTIE Administration Metoprolol Succinate 25 mg 05/11/25 17:45 05/11/25 18:34 Metoprolol Succ 25mg Ext Rel Tab PO 06/10/25 17:44 Not Given DAILY PATTIE Nystatin 1 appln 05/11/25 17:45 05/13/25 08:43 Nystatin Powder 15gm Btl EXT 06/10/25 17:44 1 appln QS PATTIE Administration Polyethylene Glycol 17 gm 05/12/25 09:00 05/12/25 11:46 Polyethylene (Miralax) 17 Gm Pack PO 06/11/25 08:59 Not Given DAILY PATTIE Potassium Chloride 20 meq 05/11/25 21:00 05/12/25 19:56 Potassium Chloride Crtab 20 Meq Tabcr PO 06/10/25 20:59 20 meq BID PATTIE Administration Rosuvastatin Calcium 20 mg 05/12/25 09:00 05/12/25 09:22 Rosuvastatin Calcium 20 Mg Tab PO 06/11/25 08:59 20 mg DAILY PATTIE Administration Sertraline HCl 100 mg 05/11/25 17:45 05/12/25 09:23 Sertraline Hcl 100 Mg Tablet PO 06/10/25 17:44 100 mg DAILY PATTIE Administration Spironolactone 25 mg 05/12/25 09:00 05/12/25 09:23 Spironolactone 25 Mg Tab PO 06/11/25 08:59 25 mg QAM PATTIE Administration Torsemide 60 mg 05/12/25 09:00 05/12/25 09:23 Torsemide 20 Mg Tab PO 06/11/25 08:59 60 mg DAILY PATTIE Administration Past Anesthesia History No Hx of Anesthesia Complications and No Family Hx of Anesthesia Complications History of PONV No Hx of PONV and No Hx of Motion Sickness NPO Date Last Intake of Fluids: 05/12/25 Time Last Intake of Fluids: 23:00 Date Last Intake of Solids: 05/12/25 Time Last Intake of Solids: 23:00 Home Medications Home Medications Medication Instructions Recorded Confirmed Last Taken vitamin B complex 1 tab PO DAILY 05/11/22 05/11/25 08/08/22 08:00 acetaminophen 500 mg tablet 500 mg PO Q4 PRN Pain 08/08/22 05/11/25 08/08/22 16:00 albuterol sulfate 2.5 mg/3 mL 2.5 mg inhalation Q6H PRN Wheezing 02/10/23 05/11/25 Unknown (0.083 %) solution for nebulization docusate sodium 100 mg capsule 100 mg PO BID 02/10/23 05/11/25 Unknown (Colace) fluticasone propionate 50 50 mcg intranasal DAILY 02/10/23 05/11/25 Unknown mcg/actuation nasal spray,suspension gabapentin 100 mg tablet 200 mg PO BID 02/10/23 05/11/25 Unknown metoprolol succinate 25 mg 25 mg PO DAILY 02/10/23 05/11/25 Unknown tablet,extended release 24 hr multivitamin 1 tab PO DAILY 02/10/23 05/11/25 Unknown polyethylene glycol 3350 17 17 g PO DAILY Constipation 02/10/23 05/11/25 Unknown gram/dose oral powder (Miralax) rosuvastatin 20 mg tablet 20 mg PO DAILY 02/10/23 05/11/25 Unknown spironolactone 25 mg tablet 25 mg PO QAM #30 tabs 02/13/23 05/11/25 Unknown torsemide 40 mg tablet 60 mg (1.5 x 40 mg) PO DAILY #30 02/13/23 05/11/25 Unknown tabs metolazone 5 mg tablet 5 mg PO 3XWK 05/06/25 05/11/25 Unknown warfarin 5 mg tablet 5 mg PO 3XWK 05/06/25 05/11/25 Unknown amoxicillin 500 mg capsule 2,000 mg PO DIRECTED PRN Dental 05/11/25 05/11/25 Unknown Procedures ceramides 1 applic topical Q12H PRN Dry Skin 05/11/25 05/11/25 Unknown 1,3,3-BL-plfwgtmifli-hyaluronic acid ER lotion (CeraVe PM lotion,extended release) tpgdplrkqdenkgtg-detjojkdtt-vugdpqzn 2 spray mucous membrane Q4H PRN 05/11/25 05/11/25 Unknown 5 mg-5 %-30 % mucosal spray Sore Throat famotidine 20 mg tablet 20 mg PO DAILY 05/11/25 05/11/25 Unknown ferrous sulfate 325 mg (65 mg 325 mg PO BID 05/11/25 05/11/25 Unknown iron) tablet,delayed release guaifenesin 600 mg tablet, 600 mg PO Q12H PRN Cough/Congestion 05/11/25 05/11/25 Unknown extended release 12 hr (Mucinex) memantine 5 mg tablet 5 mg PO BID 05/11/25 05/11/25 Unknown nystatin 100,000 unit/gram topical 1 applic topical DIRECTED 05/11/25 05/11/25 Unknown powder potassium chloride 20 mEq 20 meq PO BID 05/11/25 05/11/25 Unknown tablet,extended release(part/cryst) sertraline 100 mg tablet 100 mg PO DAILY 05/11/25 05/11/25 Unknown warfarin 2.5 mg tablet 2.5 mg PO 4XWK 05/11/25 05/11/25 Unknown Active Medications Generic Name Dose Route Start Last Admin Trade Name Freq PRN Reason Stop Dose Admin Acetaminophen 1,000 mg 05/11/25 14:40 05/11/25 20:10 Acetaminophen 500 Mg Tab PO 06/10/25 14:39 1,000 mg Q8H PRN Administration pain/fever Docusate Sodium 100 mg 05/11/25 21:00 05/12/25 19:56 Docusate Sodium 100 Mg Cap PO 06/10/25 20:59 Not Given BID PATTIE Famotidine 20 mg 05/11/25 17:45 05/12/25 09:27 Famotidine 20 Mg Tab PO 06/10/25 17:44 20 mg DAILY PATTIE Administration Ferrous Sulfate 325 mg 05/11/25 21:00 05/12/25 19:57 Ferrous Sulfate 325 Mg Tab PO 06/10/25 20:59 325 mg BID PATTIE Administration Fluticasone Propionate 2 sprays 05/11/25 17:45 05/12/25 09:21 Fluticasone Propionate Na Spr 16 Gm Btl NA 06/10/25 17:44 2 sprays DAILY PATTIE Administration Gabapentin 200 mg 05/11/25 21:00 05/12/25 19:58 Gabapentin 100 Mg Cap PO 06/10/25 20:59 200 mg BID PATTIE Administration Guaifenesin 600 mg 05/11/25 17:38 05/12/25 19:58 Guaifenesin 600 Mg Tabcr PO 06/10/25 17:37 600 mg Q12H PRN Administration Cough/Congestion Cefepime HCl 2,000 mg in 20 mls @ 5 mls/min 05/11/25 18:00 05/13/25 05:56 Maxipime 2000mg IV 06/22/25 17:59 5 mls/min Q12H PATTIE Administration Protocol Vancomycin HCl 1,250 mg/ 275 mls @ 200 mls/hr 05/12/25 09:00 05/13/25 08:38 Sodium Chloride IV 06/23/25 08:59 200 mls/hr DAILY@0900 PATTIE Administration Lactated Ringer's 1,000 mls @ 15 mls/hr 05/13/25 09:15 05/13/25 09:06 Lr IV 05/16/25 09:14 15 mls/hr .Q24H PATTIE Administration Melatonin 3 mg 05/11/25 14:40 05/12/25 19:56 Melatonin 3 Mg Tab PO 06/10/25 14:39 3 mg HS PRN Administration Insomnia Memantine 5 mg 05/11/25 21:00 05/12/25 19:57 Memantine Hcl 5 Mg Tab PO 06/10/25 20:59 5 mg BID PATTIE Administration Metoprolol Succinate 25 mg 05/11/25 17:45 05/11/25 18:34 Metoprolol Succ 25mg Ext Rel Tab PO 06/10/25 17:44 Not Given DAILY PATTIE Nystatin 1 appln 05/11/25 17:45 05/13/25 08:43 Nystatin Powder 15gm Btl EXT 06/10/25 17:44 1 appln QS PATTIE Administration Polyethylene Glycol 17 gm 05/12/25 09:00 05/12/25 11:46 Polyethylene (Miralax) 17 Gm Pack PO 06/11/25 08:59 Not Given DAILY PATTIE Potassium Chloride 20 meq 05/11/25 21:00 05/12/25 19:56 Potassium Chloride Crtab 20 Meq Tabcr PO 06/10/25 20:59 20 meq BID PATTIE Administration Rosuvastatin Calcium 20 mg 05/12/25 09:00 05/12/25 09:22 Rosuvastatin Calcium 20 Mg Tab PO 06/11/25 08:59 20 mg DAILY PATTIE Administration Sertraline HCl 100 mg 05/11/25 17:45 05/12/25 09:23 Sertraline Hcl 100 Mg Tablet PO 06/10/25 17:44 100 mg DAILY PATTIE Administration Spironolactone 25 mg 05/12/25 09:00 05/12/25 09:23 Spironolactone 25 Mg Tab PO 06/11/25 08:59 25 mg QAM PATTIE Administration Torsemide 60 mg 05/12/25 09:00 05/12/25 09:23 Torsemide 20 Mg Tab PO 06/11/25 08:59 60 mg DAILY PATTIE Administration Exercise / Class Metabolic Activity Metabolic Activity: IV < 2 Limit ADL/Bedbound Physical Exam Constitutional: no acute distress Mouth: + dentition abnormality (multiple missing teeth; none loose) and + small oral opening Thyromental Distance: > or= 3.5 Finger Breadths Mallampati Class: III Neck: + visual inspection normal Respiratory: + respiratory effort normal and + clear to auscultation bilaterally; no respiratory distress Cardiovascular: + regular rate and + regular rhythm; no murmur Musculoskeletal: no limited cervical ROM Psychiatric: + alert Additional Comments: Pt oriented to person only. ASA ASA4 Proposed Anesthesia Proposed Anesthesia: MAC Risk / Benefits Reviewed With: PT / POA / Parent / Guardian, Accepts Plan and Informed Consent Obtained Additional Comments: Pt son/POA telephone consent
--- NOTE | 2025-05-13 09:28 | History & Physical Bridge Note ---
Date of Service May 13, 2025 History & Physical Bridge Note I have examined the patient, reviewed the History & Physical and in the interval since the performance of the History & Physical I have noted the following changes of clinical significance: no changes noted. Procedure reviewed with vascular surgery anesthesia. Reviewed hospitalist and cardiology notes. Discussed case with patient's son and ARISTIDES Cruz with over the phone consent witnessed by nurse. All questions answered.
--- NOTE | 2025-05-13 10:05 | Post Operative Brief Note ---
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 Right second toe B. Right second toe proximal margin 1. Right second toe bone proximal phalanx for culture Drains Villanueva Catheter (Patient arrived to the operating room with Villanueva catheter intact) Complications none
[2025-05-13] MEDS: LIDOCAINE 1% LOCAL 20 ML VIAL ONE (10:07)
[2025-05-13] MEDS: BUPIVACAINE 0.5 % 5 MG/1 ML MPF 30ML VIAL ONE (10:07)
--- NOTE | 2025-05-13 11:42 | Pharmacy Report ---
Pharmacy PK ABX Note - Date of Service May 13, 2025 - Assessment and Plan Assessment 05/13: Reviewed vancomycin level, predicting therapeutic AUC/JEFF, continue current regimen. POD #0 right second toe amputation. Continue antibiotics for now pending pathology. 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 Amputation planned 05/13. Recent history of ~month long therapy with various antibiotics including ciprofloxacin, cephalexin, and doxycycline * Pertinent microbiologic data includes: hx Pseudomonas (R ankle, abdomen), Afib on warfarin, PAD, dementia and poor historian, resident of the [facility] * Microbiology * 05/11 Debridement culture obtained by wound clinic prior to arrival * 05/11 Nasal MRSA swab negative * 05/11 blood cultures (ordered after ceftriaxone, cefepime, and vancomycin administered) Plan Vancomycin * Loading dose: 2000 mg IV x 1 * Maintenance dose: 1250 mg IV every 24 hours * Regimen is predicted to achieve target AUC/JEFF of 400-600 mg/L.hr * Random level to be ordered if continued beyond 48 to 72 hours or based on patient clinical status. Pharmacy will continue to follow and will adjust dose/frequency as necessary. Thank you. Pharmacy has transitioned to AUC monitoring for vancomycin. AUC/JEFF is the preferred PK/PD target and is associated with decreased risk of nephrotoxicity compared to traditional trough targets.
--- NOTE | 2025-05-13 14:02 | Vascular Surgery Progress Note ---
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 TBI with toe pressure of 67mmHg. Based on these findings, he will likely heal the amputation site, however if he has poor wound healing in the next several weeks, likely will need angio. (2) Peripheral arterial disease: Plan: arterial duplex with right posterior tibial artery stenosis, and previous arterial duplex in 2022 with occluded anterior tibial artery with reconstitution into DP via collaterals, with adequate toe pressures bilaterally. TBI yesterday with toe pressure of 67mmHg, which should be adequate for wound healing. Should his site have poor healing in next couple of weeks, would likely need angio to further investigate [employer] stenosis continue statin Admission and Anticipated Discharge Date Admission Date: May 11, 2025 Subjective No complaints. No foot pain. Had right second toe amputation earlier this morning. Cultures pending. Physical Exam Physical Exam: patient sitting up in bed eating lunch, in no distress. right foot with surgical bandage in place. Results & Data Vital Signs (Past 12 Hours) Vital Signs Temp Pulse Pulse Resp BP BP Pulse Ox 05/13/25 12:28 60 05/13/25 11:16 36.5 C 52 L 20 111/62 95 05/13/25 10:35 55 L 12 112/55 L 96 05/13/25 10:25 56 L 22 117/55 L 96 05/13/25 10:15 36.2 C L 56 L 14 114/62 98 05/13/25 08:54 36.6 C 56 L 20 123/59 L 95 05/13/25 08:17 36.4 C L 48 L 16 106/56 L 95 05/13/25 08:00 05/13/25 07:23 51 L 05/13/25 03:36 37 C 57 L 16 101/54 L 96 O2 Del Method O2 Flow Rate 05/13/25 12:28 05/13/25 11:16 Nasal Cannula 3 05/13/25 10:35 Oxymask 3 05/13/25 10:25 Oxymask 6 05/13/25 10:15 Oxymask 6 05/13/25 08:54 Room Air 05/13/25 08:17 Room Air 05/13/25 08:00 Room Air 05/13/25 07:23 05/13/25 03:36 Room Air Laboratory Results 05/13/25 10:01 Gram Stain - Final Toe,Right Second Aerobic and Anaerobic Culture - Pending 05/11/25 16:15 Aerobic Blood Culture - Preliminary Blood No growth in Aerobic bottle after 24 hours. Anaerobic Blood Culture - Preliminary No growth in Anaerobic bottle after 24 hours. 05/11/25 16:21 Aerobic Blood Culture - Preliminary Blood No growth in Aerobic bottle after 24 hours. Anaerobic Blood Culture - Preliminary No growth in Anaerobic bottle after 24 hours. 05/13/25 04:26 WBC 15.97 H RBC 4.19 L Hgb 11.9 L Hct 36.2 L MCV 86.4 MCH 28.4 MCHC 32.9 RDW Std Deviation 44.2 RDW Coeff of Miller 14.1 Plt Count 241 MPV 9.6 Immature Gran % (Auto) 0.9 Neut % (Auto) 87.9 Lymph % (Auto) 3.1 [place] % (Auto) 6.1 Eos % (Auto) 1.7 Baso % (Auto) 0.3 Neut # (Auto) 14.05 H Lymph # (Auto) 0.49 L [place] # (Auto) 0.97 H Eos # (Auto) 0.27 Baso # (Auto) 0.04 Immature Gran # (Auto) 0.15 PT 25.1 H INR 2.5 H Sodium 135 L Potassium 3.3 L Chloride 98 Carbon Dioxide 27 Anion Gap 10 BUN 35 H Creatinine 1.03 Est Cr Clr Drug Dosing 48.6 eGFR 69.44 BUN/Creatinine Ratio 34.0 H Glucose 104 H Calcium 9.4 Total Bilirubin 0.6 D AST 22 ALT 10 Alkaline Phosphatase 77 Total Protein 7.0 Albumin 3.6 Globulin 3.4 Albumin/Globulin Ratio 1.1 Random Vancomycin 10.2 Medications Administered Home Medications Medication Instructions Recorded Confirmed Last Taken vitamin B complex 1 tab PO DAILY 05/11/22 05/11/25 08/08/22 08:00 acetaminophen 500 mg tablet 500 mg PO Q4 PRN Pain 08/08/22 05/11/25 08/08/22 16:00 albuterol sulfate 2.5 mg/3 mL 2.5 mg inhalation Q6H PRN Wheezing 02/10/23 05/11/25 Unknown (0.083 %) solution for nebulization docusate sodium 100 mg capsule 100 mg PO BID 02/10/23 05/11/25 Unknown (Colace) fluticasone propionate 50 50 mcg intranasal DAILY 02/10/23 05/11/25 Unknown mcg/actuation nasal spray,suspension gabapentin 100 mg tablet 200 mg PO BID 02/10/23 05/11/25 Unknown metoprolol succinate 25 mg 25 mg PO DAILY 02/10/23 05/11/25 Unknown tablet,extended release 24 hr multivitamin 1 tab PO DAILY 02/10/23 05/11/25 Unknown polyethylene glycol 3350 17 17 g PO DAILY Constipation 02/10/23 05/11/25 Unknown gram/dose oral powder (Miralax) rosuvastatin 20 mg tablet 20 mg PO DAILY 02/10/23 05/11/25 Unknown spironolactone 25 mg tablet 25 mg PO QAM #30 tabs 02/13/23 05/11/25 Unknown torsemide 40 mg tablet 60 mg (1.5 x 40 mg) PO DAILY #30 02/13/23 05/11/25 Unknown tabs metolazone 5 mg tablet 5 mg PO 3XWK 05/06/25 05/11/25 Unknown warfarin 5 mg tablet 5 mg PO 3XWK 05/06/25 05/11/25 Unknown amoxicillin 500 mg capsule 2,000 mg PO DIRECTED PRN Dental 05/11/25 05/11/25 Unknown Procedures ceramides 1 applic topical Q12H PRN Dry Skin 05/11/25 05/11/25 Unknown 1,3,9-SD-jtgzbosnoso-hyaluronic acid ER lotion (CeraVe PM lotion,extended release) rqbwbnjvrwdawwyb-lvkgqdsvyj-fmenkhti 2 spray mucous membrane Q4H PRN 05/11/25 05/11/25 Unknown 5 mg-5 %-30 % mucosal spray Sore Throat famotidine 20 mg tablet 20 mg PO DAILY 05/11/25 05/11/25 Unknown ferrous sulfate 325 mg (65 mg 325 mg PO BID 05/11/25 05/11/25 Unknown iron) tablet,delayed release guaifenesin 600 mg tablet, 600 mg PO Q12H PRN Cough/Congestion 05/11/25 05/11/25 Unknown extended release 12 hr (Mucinex) memantine 5 mg tablet 5 mg PO BID 05/11/25 05/11/25 Unknown nystatin 100,000 unit/gram topical 1 applic topical DIRECTED 05/11/25 05/11/25 Unknown powder potassium chloride 20 mEq 20 meq PO BID 05/11/25 05/11/25 Unknown tablet,extended release(part/cryst) sertraline 100 mg tablet 100 mg PO DAILY 05/11/25 05/11/25 Unknown warfarin 2.5 mg tablet 2.5 mg PO 4XWK 05/11/25 05/11/25 Unknown Active Medications Generic Name Dose Route Start Last Admin Trade Name Freq PRN Reason Stop Dose Admin Acetaminophen 1,000 mg 05/11/25 14:40 05/11/25 20:10 Acetaminophen 500 Mg Tab PO 06/10/25 14:39 1,000 mg Q8H PRN Administration pain/fever Docusate Sodium 100 mg 05/11/25 21:00 05/13/25 13:00 Docusate Sodium 100 Mg Cap PO 06/10/25 20:59 100 mg BID PATTIE Administration Famotidine 20 mg 05/11/25 17:45 05/13/25 13:00 Famotidine 20 Mg Tab PO 06/10/25 17:44 20 mg DAILY PATTIE Administration Ferrous Sulfate 325 mg 05/11/25 21:00 05/13/25 13:03 Ferrous Sulfate 325 Mg Tab PO 06/10/25 20:59 325 mg BID PATTIE Administration Fluticasone Propionate 2 sprays 05/11/25 17:45 05/13/25 12:52 Fluticasone Propionate Na Spr 16 Gm Btl NA 06/10/25 17:44 2 sprays DAILY PATTIE Administration Gabapentin 200 mg 05/11/25 21:00 05/13/25 13:01 Gabapentin 100 Mg Cap PO 06/10/25 20:59 200 mg BID PATTIE Administration Guaifenesin 600 mg 05/11/25 17:38 05/12/25 19:58 Guaifenesin 600 Mg Tabcr PO 06/10/25 17:37 600 mg Q12H PRN Administration Cough/Congestion Cefepime HCl 2,000 mg in 20 mls @ 5 mls/min 05/11/25 18:00 05/13/25 05:56 Maxipime 2000mg IV 06/22/25 17:59 5 mls/min Q12H PATTIE Administration Protocol Vancomycin HCl 1,250 mg/ 275 mls @ 200 mls/hr 05/12/25 09:00 05/13/25 11:25 Sodium Chloride IV 06/23/25 08:59 Infused DAILY@0900 PATTIE Infusion Lactated Ringer's 1,000 mls @ 15 mls/hr 05/13/25 09:15 05/13/25 09:06 Lr IV 05/16/25 09:14 15 mls/hr .Q24H PATTIE Administration Melatonin 3 mg 05/11/25 14:40 05/12/25 19:56 Melatonin 3 Mg Tab PO 06/10/25 14:39 3 mg HS PRN Administration Insomnia Memantine 5 mg 05/11/25 21:00 05/13/25 13:01 Memantine Hcl 5 Mg Tab PO 06/10/25 20:59 5 mg BID PATTIE Administration Metoprolol Succinate 25 mg 05/11/25 17:45 05/11/25 18:34 Metoprolol Succ 25mg Ext Rel Tab PO 06/10/25 17:44 Not Given DAILY PATTIE Nystatin 1 appln 05/11/25 17:45 05/13/25 08:43 Nystatin Powder 15gm Btl EXT 06/10/25 17:44 1 appln QS PATTIE Administration Polyethylene Glycol 17 gm 05/12/25 09:00 05/13/25 12:59 Polyethylene (Miralax) 17 Gm Pack PO 06/11/25 08:59 17 gm DAILY PATTIE Administration Potassium Chloride 20 meq 05/11/25 21:00 05/13/25 12:59 Potassium Chloride Crtab 20 Meq Tabcr PO 06/10/25 20:59 20 meq BID PATTIE Administration Rosuvastatin Calcium 20 mg 05/12/25 09:00 05/13/25 13:03 Rosuvastatin Calcium 20 Mg Tab PO 06/11/25 08:59 20 mg DAILY PATTIE Administration Sertraline HCl 100 mg 05/11/25 17:45 05/13/25 13:00 Sertraline Hcl 100 Mg Tablet PO 06/10/25 17:44 100 mg DAILY PATTIE Administration Spironolactone 25 mg 05/12/25 09:00 05/13/25 13:01 Spironolactone 25 Mg Tab PO 06/11/25 08:59 25 mg QAM PATTIE Administration Torsemide 60 mg 05/12/25 09:00 05/13/25 13:00 Torsemide 20 Mg Tab PO 06/11/25 08:59 60 mg DAILY PATTIE Administration PG Care Time/CCT Total # of Minutes Spent Total Time Spent with Patient: Total time spent is greater than 50% in coordination of care (as documented) at patient's floor/unit and/or counseling patient:
--- NOTE | 2025-05-13 14:44 | Anesthesiology Progress Note ---
Date of Service May 13, 2025 Anesthesia Post Procedure Vital Signs Vital Signs: Temp Pulse Pulse Pulse Resp BP BP 05/13/25 12:28 60 05/13/25 11:16 36.5 C 52 L 20 111/62 05/13/25 10:35 55 L 12 112/55 L 05/13/25 10:25 56 L 22 117/55 L 05/13/25 10:15 36.2 C L 56 L 14 114/62 05/13/25 08:54 36.6 C 56 L 20 123/59 L 05/13/25 08:17 36.4 C L 48 L 16 106/56 L 05/13/25 08:00 05/13/25 07:23 51 L 05/13/25 03:36 37 C 57 L 16 101/54 L 05/13/25 00:32 109/64 05/12/25 23:06 36.8 C 60 18 98/54 L 05/12/25 21:54 55 L 05/12/25 21:06 05/12/25 19:20 36.8 C 60 16 108/53 L 05/12/25 17:41 05/12/25 15:07 36.3 C L 53 L 16 124/73 Pulse Ox O2 Del Method O2 Flow Rate 05/13/25 12:28 05/13/25 11:16 95 Nasal Cannula 3 05/13/25 10:35 96 Oxymask 3 05/13/25 10:25 96 Oxymask 6 05/13/25 10:15 98 Oxymask 6 05/13/25 08:54 95 Room Air 05/13/25 08:17 95 Room Air 05/13/25 08:00 Room Air 05/13/25 07:23 05/13/25 03:36 96 Room Air 05/13/25 00:32 05/12/25 23:06 98 Room Air 05/12/25 21:54 05/12/25 21:06 Room Air 05/12/25 19:20 97 Room Air 05/12/25 17:41 93 Room Air 05/12/25 15:07 100 Nasal Cannula 2 Transfer of Care Handoff Completed per policy Notes Mental Status: alert / awake / arousable and participated in evaluation Nausea / Vomiting: adequately controlled Pain: adequately controlled Airway Patency, RR, SpO2: stable & adequate BP & HR: stable & adequate Hydration State: stable & adequate Anesthetic Complications: no major complications apparent and Pt Satisfied with anesthetic care
[2025-05-13 16:11] VITALS: RESP 16
--- NOTE | 2025-05-13 16:46 | Cardiology Progress Note ---
Date of Service May 13, 2025 Assessment & Plan (1) Osteomyelitis: (2) Preop cardiovascular exam: (3) Bradycardia: (4) Rheumatic aortic valve disease: (5) Status post mechanical aortic valve replacement: (6) Ischemic cardiomyopathy: (7) LBBB (left bundle branch block): (8) Atrioventricular node dysfunction: Plan R second toe osteomyelitis -> s/p amputation Preop cardiology evaluation s/p Mechanical AVR Permanent Atrial Fib with SVR SSS Severe ICM LBBB - old CAD S/P 5V CABG Dementia DCd metoprolol No rate slowing meds including beta blockers due to SVR and pause 3.1 sec patient was cleared as high risk from cardiac standpoint for stated surgery with no further cardiac w/u indicated at this time bridge anticoagulation with IV Heparin when off coumadin and subtherapeutic INR coumadin for INR 2.5 to 3.5 GDMT for HFrEF as tolerated keeping HR between 60 to 100 BPM and systolic BP between 100-140mmHg -> cannot give beta quinn due to bradycardia adjust anti-HTN meds keeping systolic BP between 100-140 mmHg diurese as indicated avoid hypovolemia keep patient euvolemic 1.5 L / 24 hr fluid restriction strict I&Os salt restriction correct and f/u electrolytes f/u renal function abx as per primary team stable from cardiac standpoint please recall if needed will sign off Admission and Anticipated Discharge Date Admission Date: May 11, 2025 Subjective Patient on exam is lying in bed in NAD; breathing is stable; forgetful; s/p right second toe amputation earlier today Review of Systems Review of Systems: A complete and accurate review of systems was unable to be obtained Physical Exam Physical Exam: General: Alert to person but not place or time. No acute distress, eating breakfast, cough observed HENT: Normocephalic. Atraumatic. Eyes: Conjunctiva pink, sclera clear. Neck: soft, NT, No JVD. Heart: Irregularly irregular prosthetic click. Soft systolic murmur. No diastolic murmur. Lungs: BLBS, no rales, no wheezing Abdomen: +BS. Soft. Nontender. No masses or organomegaly. Extremities: + Dressing Limited neurological examination is without focal deficits. Results & Data Vital Signs (Past 12 Hours) Vital Signs Temp Pulse Pulse Resp BP Pulse Ox O2 Del Method 05/13/25 16:10 36.4 C L 44 L 16 111/67 100 Nasal Cannula 05/13/25 15:18 58 L 05/13/25 12:28 60 05/13/25 11:16 36.5 C 52 L 20 111/62 95 Nasal Cannula 05/13/25 10:35 55 L 12 112/55 L 96 Oxymask 05/13/25 10:25 56 L 22 117/55 L 96 Oxymask 05/13/25 10:15 36.2 C L 56 L 14 114/62 98 Oxymask 05/13/25 08:54 36.6 C 56 L 20 123/59 L 95 Room Air 05/13/25 08:17 36.4 C L 48 L 16 106/56 L 95 Room Air 05/13/25 08:00 Room Air 05/13/25 07:23 51 L O2 Flow Rate 05/13/25 16:10 3 05/13/25 15:18 05/13/25 12:28 05/13/25 11:16 3 05/13/25 10:35 3 05/13/25 10:25 6 05/13/25 10:15 6 05/13/25 08:54 05/13/25 08:17 05/13/25 08:00 05/13/25 07:23 Vital Signs Temp 36.4 C L 05/13/25 16:10 Pulse 44 L 05/13/25 16:10 Resp 16 05/13/25 16:10 BP 111/67 05/13/25 16:10 Pulse Ox 100 05/13/25 16:10 O2 Del Method Nasal Cannula 05/13/25 16:10 O2 Flow Rate 3 05/13/25 16:10 Intake & Output 05/12/25 05/13/25 05/13/25 18:59 06:59 18:59 Intake Total 275 / 635 360 / 635 895 / 895 Output Total 450 / 2201 1751 / 2201 205 / 205 Balance -175 / -1566 -1391 / -1566 690 / 690 Weight 84.1 kg 84.1 kg Intake: IV 275 / 275 275 / 275 Vancomycin HCl 1,250 mg In 275 / 275 275 / 275 Sodium Chloride 0.9% 250 ml @ 200 mls/hr IV DAILY@0900 [facility] Rx #:[id number] IV Perioperative 500 / 500 Oral 360 / 360 120 / 120 Output: Estimated Blood Loss 5 / 5 Urine Amount (Catheter) 450 / 2200 1750 / 2200 200 / 200 Villanueva/Indwelling 450 / 2200 1750 / 2200 200 / 200 # Bowel Movements Other: Weight Measurement Method Built in [facility] Laboratory Results Laboratory Results - last 48 hr 05/11/25 05/12/25 05/12/25 12:05 00:54 01:05 WBC RBC Hgb Hct MCV MCH MCHC RDW Std Deviation RDW Coeff of Miller Plt Count MPV Immature Gran % (Auto) Neut % (Auto) Lymph % (Auto) [place] % (Auto) Eos % (Auto) Baso % (Auto) Neut # (Auto) Lymph # (Auto) [place] # (Auto) Eos # (Auto) Baso # (Auto) Immature Gran # (Auto) PT INR Sodium 134 L Potassium 3.3 L Chloride 95 L Carbon Dioxide 32 Anion Gap 7 BUN 35 H Creatinine 1.20 Est Cr Clr Drug Dosing 41.7 eGFR 57.81 BUN/Creatinine Ratio 29.2 H Glucose 95 POC Glucose 101 H Calcium 9.3 Magnesium 2.0 Total Bilirubin AST ALT Alkaline Phosphatase Total Protein Albumin Globulin Albumin/Globulin Ratio Procalcitonin 0.09 Random Vancomycin 05/12/25 05/13/25 06:57 04:26 WBC 15.35 H 15.97 H RBC 4.03 L 4.19 L Hgb 11.7 L 11.9 L Hct 35.2 L 36.2 L MCV 87.3 86.4 MCH 29.0 28.4 MCHC 33.2 32.9 RDW Std Deviation 45.1 44.2 RDW Coeff of Miller 14.1 14.1 Plt Count 241 241 MPV 9.6 9.6 Immature Gran % (Auto) 0.8 0.9 Neut % (Auto) 86.9 87.9 Lymph % (Auto) 3.1 3.1 [place] % (Auto) 6.9 6.1 Eos % (Auto) 2.0 1.7 Baso % (Auto) 0.3 0.3 Neut # (Auto) 13.36 H 14.05 H Lymph # (Auto) 0.47 L 0.49 L [place] # (Auto) 1.06 H 0.97 H Eos # (Auto) 0.30 0.27 Baso # (Auto) 0.04 0.04 Immature Gran # (Auto) 0.12 0.15 PT 21.1 H 25.1 H INR 2.1 H 2.5 H Sodium 135 L 135 L Potassium 3.3 L 3.3 L Chloride 95 L 98 Carbon Dioxide 33 H 27 Anion Gap 7 10 BUN 33 H 35 H Creatinine 1.03 1.03 Est Cr Clr Drug Dosing 48.6 48.6 eGFR 69.44 69.44 BUN/Creatinine Ratio 32.0 H 34.0 H Glucose 99 104 H POC Glucose Calcium 9.6 9.4 Magnesium Total Bilirubin 0.6 D AST 22 ALT 10 Alkaline Phosphatase 77 Total Protein 7.0 Albumin 3.6 Globulin 3.4 Albumin/Globulin Ratio 1.1 Procalcitonin Random Vancomycin 10.2 Diagnostic Findings Laboratory Results WBC 15.97 K/ul (4.8-10.8) H 05/13/25 04:26 RBC 4.19 M/uL (4.70-6.10) L 05/13/25 04:26 Hgb 11.9 g/dl (14.0-18.0) L 05/13/25 04:26 Hct 36.2 % (42.0-52.0) L 05/13/25 04:26 MCV 86.4 fL (80.0-100.0) 05/13/25 04:26 MCH 28.4 pg (25.0-34.0) 05/13/25 04:26 MCHC 32.9 g/dL (32.0-36.0) 05/13/25 04:26 RDW Std Deviation 44.2 fL (36.4-46.3) 05/13/25 04:26 RDW Coeff of Miller 14.1 % (11.5-14.5) 05/13/25 04:26 Plt Count 241 K/uL (130-400) 05/13/25 04:26 MPV 9.6 fL (9.4-12.4) 05/13/25 04:26 Immature Gran % (Auto) 0.9 % 05/13/25 04:26 Neut % (Auto) 87.9 % 05/13/25 04:26 Lymph % (Auto) 3.1 % 05/13/25 04:26 [place] % (Auto) 6.1 % 05/13/25 04:26 Eos % (Auto) 1.7 % 05/13/25 04:26 Baso % (Auto) 0.3 % 05/13/25 04:26 Neut # (Auto) 14.05 K/uL (1.40-6.50) H 05/13/25 04:26 Lymph # (Auto) 0.49 K/uL (1.20-3.40) L 05/13/25 04:26 [place] # (Auto) 0.97 K/uL (0.11-0.59) H 05/13/25 04:26 Eos # (Auto) 0.27 K/uL (0.00-0.50) 05/13/25 04:26 Baso # (Auto) 0.04 K/uL (0.00-0.20) 05/13/25 04:26 Immature Gran # (Auto) 0.15 K/uL (0.01-0.20) 05/13/25 04:26 ESR 87 mm/hr (0-20) H 05/11/25 12:05 PT 25.1 Seconds (9.0-12.0) H 05/13/25 04:26 INR 2.5 (0.9-1.1) H 05/13/25 04:26 Sodium 135 mmol/L (136-145) L 05/13/25 04:26 Potassium 3.3 mmol/L (3.5-5.1) L 05/13/25 04:26 Chloride 98 mmol/L (98-107) 05/13/25 04:26 Carbon Dioxide 27 mmol/L (21-32) 05/13/25 04:26 Anion Gap 10 (3-11) 05/13/25 04:26 BUN 35 mg/dl (6-23) H 05/13/25 04:26 Creatinine 1.03 mg/dl (0.6-1.4) 05/13/25 04:26 Est Cr Clr Drug Dosing 48.6 ml/min 05/13/25 04:26 eGFR 69.44 05/13/25 04:26 BUN/Creatinine Ratio 34.0 (10-20) H 05/13/25 04:26 Glucose 104 mg/dl (70-99(Fasting)) H 05/13/25 04:26 POC Glucose 101 mg/dl (70-99) H 05/12/25 01:05 Calcium 9.4 mg/dl (8.6-10.3) 05/13/25 04:26 Magnesium 2.0 mg/dl (1.7-2.4) 05/12/25 00:54 Total Bilirubin 0.6 mg/dl (0.2-1.0) D 05/13/25 04:26 AST 22 U/L (13-39) 05/13/25 04:26 ALT 10 U/L (7-52) 05/13/25 04:26 Alkaline Phosphatase 77 U/L (34-104) 05/13/25 04:26 C-Reactive Protein 8.59 mg/dl (0-0.5) H 05/11/25 12:05 Total Protein 7.0 gm/dl (6.0-8.3) 05/13/25 04:26 Albumin 3.6 gm/dl (3.4-5.0) 05/13/25 04:26 Globulin 3.4 gm/dl (2.5-4.0) 05/13/25 04:26 Albumin/Globulin Ratio 1.1 (0.9-2) 05/13/25 04:26 Procalcitonin 0.09 ng/ml (0-0.5) 05/11/25 12:05 Nasal Screen MRSA (PCR) Negative (Negative) 05/11/25 12:10 Random Vancomycin 10.2 mcg/ml (10-20) 05/13/25 04:26 Impressions Foot X-Ray 05/11/25 13:48 XR foot RT min 3V routine CLINICAL HISTORY: Osteomyelitis right second toe COMPARISON: 05/11/2025 FINDINGS: There are atherosclerotic calcifications. There is bandage artifact at the second toe limiting evaluation. There is patchy lucency distally at the second proximal phalanx. There is a possible superimposed nondisplaced fracture at the distal aspect of the second proximal phalanx. No other fracture or dislocation seen. IMPRESSION: 1. Bandage artifact at the second toe. 2. Findings suggesting osteomyelitis distal aspect of the second proximal phalanx. 3. Possible underlying fracture distal aspect of the second proximal phalanx. ACT 112: Negative or not required by law. Electronically signed by: Shaji Edouard M.D. 05/11/2025 2:31 PM Duplex Scan Lower Extremity Artery 05/11/25 14:54 Technique: Grayscale, color Doppler and spectral waveform analysis imaging of the leg arteries was performed Findings: Triphasic and biphasic waveforms are seen within the right leg arteries. There is multifocal atherosclerotic plaque. There is an apparent stenosis of the posterior tibial artery Peak systolic velocities in centimeters per second are as follows: OFFICE SPEC 55 PFA 37 Prox SFA 54 Mid SFA 78 Distal SFA 51 Popliteal 42 JENNIFER 36 APPLICATION SOFTWARE DEVELOPER 165 Smith Pedis 40 Impression: Right leg atherosclerosis with a stenosis of the right APPLICATION SOFTWARE DEVELOPER Electronically signed by Rikki Callaway 05-11-2025 5:04 PM Chest X-Ray 05/11/25 18:46 CR Exam(s): XR CXR 1 VIEW EXAM: XR Chest, 1 View CLINICAL HISTORY: Reason for exam: hypoxia, CHF. TECHNIQUE: Frontal view of the chest. COMPARISON: Prior chest x-ray from February 12, 2023. FINDINGS: Lungs: Mild to moderate peribronchial thickening of the central lower lobe bronchi with small patchy opacity at the right lung base. Pleural space: Unremarkable. No pneumothorax. Heart: Mild cardiomegaly. Status post mitral valve replacement. Mediastinum: Unremarkable. Normal mediastinal contour. Bones/joints: Status post median sternotomy with sternal wires intact. Diffuse osteopenia throughout the visualized bones. No acute fracture. IMPRESSION: Bronchitis with right lower lobe infiltrate. Communications: Verify Receipt Electronically signed by: Nakita Alan MD 05/11/25 23:28 PM Ankle Brachial Index 05/12/25 09:25 ankle/brachial index ltd CLINICAL HISTORY: R 2nd toe OM, past MADDY NC COMPARISON STUDY: None FINDINGS: Right MADDY is 0.55, consistent with moderate arterial disease. Left MADDY is 0.55, consistent with moderate arterial disease. IMPRESSION: Abnormal bilateral MADDY. ACT 112: Negative or not required by law. Electronically signed by: Shaji Edouard M.D. 05/12/2025 11:50 AM Medications Administered Home Medications Medication Instructions Recorded Confirmed Last Taken vitamin B complex 1 tab PO DAILY 05/11/22 05/11/25 08/08/22 08:00 acetaminophen 500 mg tablet 500 mg PO Q4 PRN Pain 08/08/22 05/11/25 08/08/22 16:00 albuterol sulfate 2.5 mg/3 mL 2.5 mg inhalation Q6H PRN Wheezing 02/10/23 05/11/25 Unknown (0.083 %) solution for nebulization docusate sodium 100 mg capsule 100 mg PO BID 02/10/23 05/11/25 Unknown (Colace) fluticasone propionate 50 50 mcg intranasal DAILY 02/10/23 05/11/25 Unknown mcg/actuation nasal spray,suspension gabapentin 100 mg tablet 200 mg PO BID 02/10/23 05/11/25 Unknown metoprolol succinate 25 mg 25 mg PO DAILY 02/10/23 05/11/25 Unknown tablet,extended release 24 hr multivitamin 1 tab PO DAILY 02/10/23 05/11/25 Unknown polyethylene glycol 3350 17 17 g PO DAILY Constipation 02/10/23 05/11/25 Unknown gram/dose oral powder (Miralax) rosuvastatin 20 mg tablet 20 mg PO DAILY 02/10/23 05/11/25 Unknown spironolactone 25 mg tablet 25 mg PO QAM #30 tabs 02/13/23 05/11/25 Unknown torsemide 40 mg tablet 60 mg (1.5 x 40 mg) PO DAILY #30 02/13/23 05/11/25 Unknown tabs metolazone 5 mg tablet 5 mg PO 3XWK 05/06/25 05/11/25 Unknown warfarin 5 mg tablet 5 mg PO 3XWK 05/06/25 05/11/25 Unknown amoxicillin 500 mg capsule 2,000 mg PO DIRECTED PRN Dental 05/11/25 05/11/25 Unknown Procedures ceramides 1 applic topical Q12H PRN Dry Skin 05/11/25 05/11/25 Unknown 1,3,4-OS-lkjzetaokyi-hyaluronic acid ER lotion (CeraVe PM lotion,extended release) weesnojbvutqowzn-fmyxqdxbgv-wkocfega 2 spray mucous membrane Q4H PRN 05/11/25 05/11/25 Unknown 5 mg-5 %-30 % mucosal spray Sore Throat famotidine 20 mg tablet 20 mg PO DAILY 05/11/25 05/11/25 Unknown ferrous sulfate 325 mg (65 mg 325 mg PO BID 05/11/25 05/11/25 Unknown iron) tablet,delayed release guaifenesin 600 mg tablet, 600 mg PO Q12H PRN Cough/Congestion 05/11/25 05/11/25 Unknown extended release 12 hr (Mucinex) memantine 5 mg tablet 5 mg PO BID 05/11/25 05/11/25 Unknown nystatin 100,000 unit/gram topical 1 applic topical DIRECTED 05/11/25 05/11/25 Unknown powder potassium chloride 20 mEq 20 meq PO BID 05/11/25 05/11/25 Unknown tablet,extended release(part/cryst) sertraline 100 mg tablet 100 mg PO DAILY 05/11/25 05/11/25 Unknown warfarin 2.5 mg tablet 2.5 mg PO 4XWK 05/11/25 05/11/25 Unknown Active Medications Generic Name Dose Route Start Last Admin Trade Name Freq PRN Reason Stop Dose Admin Acetaminophen 1,000 mg 05/11/25 14:40 05/11/25 20:10 Acetaminophen 500 Mg Tab PO 06/10/25 14:39 1,000 mg Q8H PRN Administration pain/fever Docusate Sodium 100 mg 05/11/25 21:00 05/13/25 13:00 Docusate Sodium 100 Mg Cap PO 06/10/25 20:59 100 mg BID PATTIE Administration Famotidine 20 mg 05/11/25 17:45 05/13/25 13:00 Famotidine 20 Mg Tab PO 06/10/25 17:44 20 mg DAILY PATTIE Administration Ferrous Sulfate 325 mg 05/11/25 21:00 05/13/25 13:03 Ferrous Sulfate 325 Mg Tab PO 06/10/25 20:59 325 mg BID PATTIE Administration Fluticasone Propionate 2 sprays 05/11/25 17:45 05/13/25 12:52 Fluticasone Propionate Na Spr 16 Gm Btl NA 06/10/25 17:44 2 sprays DAILY PATTIE Administration Gabapentin 200 mg 05/11/25 21:00 05/13/25 13:01 Gabapentin 100 Mg Cap PO 06/10/25 20:59 200 mg BID PATTIE Administration Guaifenesin 600 mg 05/11/25 17:38 05/12/25 19:58 Guaifenesin 600 Mg Tabcr PO 06/10/25 17:37 600 mg Q12H PRN Administration Cough/Congestion Cefepime HCl 2,000 mg in 20 mls @ 5 mls/min 05/11/25 18:00 05/13/25 05:56 Maxipime 2000mg IV 06/22/25 17:59 5 mls/min Q12H PATTIE Administration Protocol Vancomycin HCl 1,250 mg/ 275 mls @ 200 mls/hr 05/12/25 09:00 05/13/25 11:25 Sodium Chloride IV 06/23/25 08:59 Infused DAILY@0900 PATTIE Infusion Lactated Ringer's 1,000 mls @ 15 mls/hr 05/13/25 09:15 05/13/25 09:06 Lr IV 05/16/25 09:14 15 mls/hr .Q24H PATTIE Administration Melatonin 3 mg 05/11/25 14:40 05/12/25 19:56 Melatonin 3 Mg Tab PO 06/10/25 14:39 3 mg HS PRN Administration Insomnia Memantine 5 mg 05/11/25 21:00 05/13/25 13:01 Memantine Hcl 5 Mg Tab PO 06/10/25 20:59 5 mg BID PATTIE Administration Metoprolol Succinate 25 mg 05/11/25 17:45 05/11/25 18:34 Metoprolol Succ 25mg Ext Rel Tab PO 06/10/25 17:44 Not Given DAILY PATTIE Nystatin 1 appln 05/11/25 17:45 05/13/25 16:19 Nystatin Powder 15gm Btl EXT 06/10/25 17:44 1 appln QS PATTIE Administration Polyethylene Glycol 17 gm 05/12/25 09:00 05/13/25 12:59 Polyethylene (Miralax) 17 Gm Pack PO 06/11/25 08:59 17 gm DAILY PATTIE Administration Potassium Chloride 20 meq 05/11/25 21:00 05/13/25 12:59 Potassium Chloride Crtab 20 Meq Tabcr PO 06/10/25 20:59 20 meq BID PATTIE Administration Rosuvastatin Calcium 20 mg 05/12/25 09:00 05/13/25 13:03 Rosuvastatin Calcium 20 Mg Tab PO 06/11/25 08:59 20 mg DAILY PATTIE Administration Sertraline HCl 100 mg 05/11/25 17:45 05/13/25 13:00 Sertraline Hcl 100 Mg Tablet PO 06/10/25 17:44 100 mg DAILY PATTIE Administration Spironolactone 25 mg 05/12/25 09:00 05/13/25 13:01 Spironolactone 25 Mg Tab PO 06/11/25 08:59 25 mg QAM PATTIE Administration Torsemide 60 mg 05/12/25 09:00 05/13/25 13:00 Torsemide 20 Mg Tab PO 06/11/25 08:59 60 mg DAILY PATTIE Administration PG Care Time/CCT Total # of Minutes Spent Total Time Spent with Patient: Total time spent is greater than 50% in coordination of care (as documented) at patient's floor/unit and/or counseling patient: Coding Level of Care Code 68077 SUB INP/OBS CARE 3/50MIN Diagnoses Osteomyelitis M86.9 Preop cardiovascular exam Z01.810 Bradycardia R00.1 Rheumatic aortic valve disease I06.9 Status post mechanical aortic valve replacement Z95.2 Ischemic cardiomyopathy I25.5 LBBB (left bundle branch block) I44.7 Atrioventricular node dysfunction I45.89
--- NOTE | 2025-05-13 16:56 | Billing Data ---
Date of Service May 13, 2025 Coding Level of Care Code 53087 SUB INP/OBS CARE MIN
--- NOTE | 2025-05-14 07:23 | Hospitalist Progress Note ---
Date of Service May 14, 2025 Assessment & Plan (1) Peripheral arterial disease: (2) Osteomyelitis of second toe of right foot: (3) Stage IV pressure ulcer: (4) Anticoagulant long-term use: Plan #Stage IV Pressure ulcer(s) of 2nd r. toe/Osteomyelitis #partial Right Second Toe Amputation - seen in Wound Care office as outpt day of admission, referred to ER; recent Hx of month-long Tx w/ various Abx - bone exposed with both dorsal lesions of 2nd r. toe, pt w/out pain, decreased sensation - both lesions debrided in outside office and wound Cx collected and pending - Podiatry on board, appreciate recs - Foot X-ray: osteomyelitis of 2nd r. phalanx - continue Cefepime and Vancomycin until cultures come back - trend CBC AM daily - wound/surgical Cx will be obtained during surgery #Bradycardia, suspect 2/2 to metoprolol dose -asx and stable -will monitor #Long-term potassium supplementation (even while on spironolactone) - trend BMP AM daily Chronic conditions #AFib - hold warfarin but resume after amputation surgery, daily INR's - continue metoprolol #HFrEF - spironolactone #Depression - continue sertraline #Dementia -continue memantine Code status: DNR/DNI Disposition: Med-Surg FENGI: regular diet, speech eval placed for instructions VTE Prophylaxis: Coumadin (held for now) Admission and Anticipated Discharge Date Admission Date: May 11, 2025 Review of Systems Review of Systems: per HPI Physical Exam Physical Exam: GA: well groomed, well nourished in no apparent distress. Appears tired. AAO to person. HEENT: head normocephalic, atraumatic. EOMI RESP: vesicular breath sounds b/l. No wheezes, rhonchi, or rales CARDIOVASCULAR: S1 and S2 heard. No murmurs, rubs, or gallops. GI: no tenderness or masses felt to palpation MSK: no gross abnormalities or focal deficits SKIN: warm, dry, no edema. PSYCH: appropriate mood and affect NEURO: no focal deficits. speech delayed Results & Data Results & Data Vital Signs (Past 12 Hours) Vital Signs Temp Pulse Pulse Pulse Resp BP BP 05/14/25 06:58 54 L 05/14/25 03:46 36.6 C 49 L 16 104/62 05/13/25 23:22 36.3 C L 55 L 16 128/85 05/13/25 21:47 44 L 05/13/25 20:10 05/13/25 19:34 36.5 C 48 L 16 108/60 Pulse Ox O2 Del Method O2 Flow Rate 05/14/25 06:58 05/14/25 03:46 96 Nasal Cannula 2 05/13/25 23:22 100 Nasal Cannula 3 05/13/25 21:47 05/13/25 20:10 Nasal Cannula 2 05/13/25 19:34 97 Nasal Cannula 3 Resident Activity Tracking Resident Involvement: Resident Care Provided Care Provided: Adult Hospital Medicine (3) Stage IV pressure ulcer Laterality: right Pressure injury location: toe Qualified Code(s): L89.894 - Pressure ulcer of other site, stage 4
[2025-05-14] MEDS: VANCOMYCIN LEVEL ONE (08:11)
[2025-05-14 08:12] LABS: Hematocrit (blood only) 36.7 % (42.0-52.0); Hemoglobin 12.0 g/dl (14.0-18.0); Immature Granulocytes # (auto) 0.15 K/uL (0.01-0.20); Immature Granulocytes % (auto) 0.9 %; Mean Corpuscular Hemoglobin 28.3 pg (25.0-34.0); Mean Corpuscular Volume 86.6 fL (80.0-100.0); Platelet Count 274 K/uL (130-400); RDW Standard Deviation 43.9 fL (36.4-46.3); Red Blood Count 4.24 M/uL (4.70-6.10); White Blood Count 16.21 K/ul (4.8-10.8)
[2025-05-14 08:18] VITALS: TEMP 97.7
[2025-05-14 08:24] LABS: Anion Gap 9.0 (3-11); Blood Urea Nitrogen 42.0 mg/dl (6-23); Calcium 9.6 mg/dl (8.6-10.3); Carbon Dioxide 27.0 mmol/L (21-32); Chloride 100.0 mmol/L (98-107); Creatinine Clr Calc Pharmacy 36.8 ml/min; Glucose 115.0 mg/dl (70-99(Fasting)); Potassium 3.6 mmol/L (3.5-5.1); Sodium 136.0 mmol/L (136-145)
[2025-05-14 08:34] LABS: INR 2.5 (0.9-1.1); Prothrombin Time 25.1 Seconds (9.0-12.0)
--- NOTE | 2025-05-14 09:29 | Vascular Surgery Progress Note ---
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 TBI with toe pressure of 67mmHg. In OR he was noted to have bleeding at cutaneous level, less bleeding at subcutaneous level of amputation site. Overall should be adquate for healing, but he will likely need close follow up of the site, and if he has poor wound healing in the next several weeks, likely will need angio. (2) Peripheral arterial disease: Plan: arterial duplex with right posterior tibial artery stenosis, and previous arterial duplex in 2022 with occluded anterior tibial artery with reconstitution into DP via collaterals, with adequate toe pressures bilaterally. TBI with toe pressure of 67mmHg, which should be adequate for wound healing. Should his site have poor healing in next couple of weeks, would likely need angio to further investigate R FREIGHT RECEIVER stenosis continue statin Admission and Anticipated Discharge Date Admission Date: May 11, 2025 Subjective feels well this morning. Denies fevers or chills. Denies any foot pain. remains on antibiotics. VSS In reviewing OP report, bleeding at level of cutaneous tissues noted, minimal bleeding at subcutaneous tissue, overall should be adequate for wound healing. Physical Exam Physical Exam: patient sitting up in bed, in no distress. right foot with surgical bandage in place. Results & Data Vital Signs (Past 12 Hours) Vital Signs Temp Pulse Pulse Pulse Resp BP BP 05/14/25 08:17 36.5 C 55 L 16 138/69 05/14/25 06:58 54 L 05/14/25 03:46 36.6 C 49 L 16 104/62 05/13/25 23:22 36.3 C L 55 L 16 128/85 05/13/25 21:47 44 L Pulse Ox O2 Del Method O2 Flow Rate 05/14/25 08:17 98 Nasal Cannula 3 05/14/25 06:58 05/14/25 03:46 96 Nasal Cannula 2 05/13/25 23:22 100 Nasal Cannula 3 05/13/25 21:47 Laboratory Results 05/11/25 16:15 Aerobic Blood Culture - Preliminary Blood No growth in Aerobic bottle after 48 hours. Anaerobic Blood Culture - Preliminary No growth in Anaerobic bottle after 48 hours. 05/11/25 16:21 Aerobic Blood Culture - Preliminary Blood No growth in Aerobic bottle after 48 hours. Anaerobic Blood Culture - Preliminary No growth in Anaerobic bottle after 48 hours. 05/13/25 10:01 Gram Stain - Final Toe,Right Second Aerobic and Anaerobic Culture - Pending 05/14/25 05/14/25 08:10 07:39 WBC 16.21 H RBC 4.24 L Hgb 12.0 L Hct 36.7 L MCV 86.6 MCH 28.3 MCHC 32.7 RDW Std Deviation 43.9 RDW Coeff of Miller 14.0 Plt Count 274 MPV 9.5 Immature Gran % (Auto) 0.9 Neut % (Auto) 88.1 Lymph % (Auto) 3.5 [place] % (Auto) 6.8 Eos % (Auto) 0.5 Baso % (Auto) 0.2 Neut # (Auto) 14.27 H Lymph # (Auto) 0.57 L [place] # (Auto) 1.11 H Eos # (Auto) 0.08 Baso # (Auto) 0.03 Immature Gran # (Auto) 0.15 PT 25.1 H INR 2.5 H Sodium 136 Potassium 3.6 Chloride 100 Carbon Dioxide 27 Anion Gap 9 BUN 42 H Creatinine 1.36 D Est Cr Clr Drug Dosing 36.8 eGFR 49.74 BUN/Creatinine Ratio 30.9 H Glucose 115 H Calcium 9.6 Random Vancomycin 13.8 Medications Administered Home Medications Medication Instructions Recorded Confirmed Last Taken vitamin B complex 1 tab PO DAILY 05/11/22 05/11/25 08/08/22 08:00 acetaminophen 500 mg tablet 500 mg PO Q4 PRN Pain 08/08/22 05/11/25 08/08/22 16:00 albuterol sulfate 2.5 mg/3 mL 2.5 mg inhalation Q6H PRN Wheezing 02/10/23 05/11/25 Unknown (0.083 %) solution for nebulization docusate sodium 100 mg capsule 100 mg PO BID 02/10/23 05/11/25 Unknown (Colace) fluticasone propionate 50 50 mcg intranasal DAILY 02/10/23 05/11/25 Unknown mcg/actuation nasal spray,suspension gabapentin 100 mg tablet 200 mg PO BID 02/10/23 05/11/25 Unknown metoprolol succinate 25 mg 25 mg PO DAILY 02/10/23 05/11/25 Unknown tablet,extended release 24 hr multivitamin 1 tab PO DAILY 02/10/23 05/11/25 Unknown polyethylene glycol 3350 17 17 g PO DAILY Constipation 02/10/23 05/11/25 Unknown gram/dose oral powder (Miralax) rosuvastatin 20 mg tablet 20 mg PO DAILY 02/10/23 05/11/25 Unknown spironolactone 25 mg tablet 25 mg PO QAM #30 tabs 02/13/23 05/11/25 Unknown torsemide 40 mg tablet 60 mg (1.5 x 40 mg) PO DAILY #30 02/13/23 05/11/25 Unknown tabs metolazone 5 mg tablet 5 mg PO 3XWK 05/06/25 05/11/25 Unknown warfarin 5 mg tablet 5 mg PO 3XWK 05/06/25 05/11/25 Unknown amoxicillin 500 mg capsule 2,000 mg PO DIRECTED PRN Dental 05/11/25 05/11/25 Unknown Procedures ceramides 1 applic topical Q12H PRN Dry Skin 05/11/25 05/11/25 Unknown 1,3,1-CB-fhjdnjbecnn-hyaluronic acid ER lotion (CeraVe PM lotion,extended release) bqsmhlltfzmrzvpc-yzwynovopu-mtqoxiea 2 spray mucous membrane Q4H PRN 05/11/25 05/11/25 Unknown 5 mg-5 %-30 % mucosal spray Sore Throat famotidine 20 mg tablet 20 mg PO DAILY 05/11/25 05/11/25 Unknown ferrous sulfate 325 mg (65 mg 325 mg PO BID 05/11/25 05/11/25 Unknown iron) tablet,delayed release guaifenesin 600 mg tablet, 600 mg PO Q12H PRN Cough/Congestion 05/11/25 05/11/25 Unknown extended release 12 hr (Mucinex) memantine 5 mg tablet 5 mg PO BID 05/11/25 05/11/25 Unknown nystatin 100,000 unit/gram topical 1 applic topical DIRECTED 05/11/25 05/11/25 Unknown powder potassium chloride 20 mEq 20 meq PO BID 05/11/25 05/11/25 Unknown tablet,extended release(part/cryst) sertraline 100 mg tablet 100 mg PO DAILY 05/11/25 05/11/25 Unknown warfarin 2.5 mg tablet 2.5 mg PO 4XWK 05/11/25 05/11/25 Unknown Active Medications Generic Name Dose Route Start Last Admin Trade Name Delvin PRN Reason Stop Dose Admin Acetaminophen 1,000 mg 05/11/25 14:40 05/13/25 21:18 Acetaminophen 500 Mg Tab PO 06/10/25 14:39 1,000 mg Q8H PRN Administration pain/fever Docusate Sodium 100 mg 05/11/25 21:00 05/14/25 08:09 Docusate Sodium 100 Mg Cap PO 06/10/25 20:59 100 mg BID PATTIE Administration Famotidine 20 mg 05/11/25 17:45 05/14/25 08:09 Famotidine 20 Mg Tab PO 06/10/25 17:44 20 mg DAILY PATTIE Administration Ferrous Sulfate 325 mg 05/11/25 21:00 05/14/25 08:11 Ferrous Sulfate 325 Mg Tab PO 06/10/25 20:59 325 mg BID PATTIE Administration Fluticasone Propionate 2 sprays 05/11/25 17:45 05/14/25 08:09 Fluticasone Propionate Na Spr 16 Gm Btl NA 06/10/25 17:44 2 sprays DAILY PATTIE Administration Gabapentin 200 mg 05/11/25 21:00 05/14/25 08:10 Gabapentin 100 Mg Cap PO 06/10/25 20:59 200 mg BID PATTIE Administration Guaifenesin 600 mg 05/11/25 17:38 05/14/25 08:09 Guaifenesin 600 Mg Tabcr PO 06/10/25 17:37 600 mg Q12H PRN Administration Cough/Congestion Cefepime HCl 2,000 mg in 20 mls @ 5 mls/min 05/11/25 18:00 05/14/25 05:54 Maxipime 2000mg IV 06/22/25 17:59 5 mls/min Q12H PATTIE Administration Protocol Vancomycin HCl 1,250 mg/ 275 mls @ 200 mls/hr 05/12/25 09:00 05/14/25 09:07 Sodium Chloride IV 06/23/25 08:59 200 mls/hr DAILY@0900 PATTIE Administration Melatonin 3 mg 05/11/25 14:40 05/13/25 21:18 Melatonin 3 Mg Tab PO 06/10/25 14:39 3 mg HS PRN Administration Insomnia Memantine 5 mg 05/11/25 21:00 05/14/25 08:11 Memantine Hcl 5 Mg Tab PO 06/10/25 20:59 5 mg BID PATTIE Administration Nystatin 1 appln 05/11/25 17:45 05/14/25 08:11 Nystatin Powder 15gm Btl EXT 06/10/25 17:44 1 appln QS PATTIE Administration Polyethylene Glycol 17 gm 05/12/25 09:00 05/14/25 08:09 Polyethylene (Miralax) 17 Gm Pack PO 06/11/25 08:59 17 gm DAILY PATTIE Administration Potassium Chloride 20 meq 05/11/25 21:00 05/14/25 08:09 Potassium Chloride Crtab 20 Meq Tabcr PO 06/10/25 20:59 20 meq BID PATTIE Administration Rosuvastatin Calcium 20 mg 05/12/25 09:00 05/14/25 08:09 Rosuvastatin Calcium 20 Mg Tab PO 06/11/25 08:59 20 mg DAILY PATTIE Administration Sertraline HCl 100 mg 05/11/25 17:45 05/14/25 08:10 Sertraline Hcl 100 Mg Tablet PO 06/10/25 17:44 100 mg DAILY PATTIE Administration Spironolactone 25 mg 05/12/25 09:00 05/14/25 08:09 Spironolactone 25 Mg Tab PO 06/11/25 08:59 25 mg QAM PATTIE Administration Torsemide 60 mg 05/12/25 09:00 05/14/25 08:10 Torsemide 20 Mg Tab PO 06/11/25 08:59 60 mg DAILY PATTIE Administration PG Care Time/CCT Total # of Minutes Spent Total Time Spent with Patient: Total time spent is greater than 50% in coordination of care (as documented) at patient's floor/unit and/or counseling patient:
--- NOTE | 2025-05-14 10:09 | Discharge Summary ---
Date of Service May 14, 2025 Admission HPI Per Admitting Provider Patient is a 89 yo M w/ a PMHx of dementia, depression, Hx of falls, HTN, HFrEF, PAD, healed pressure ulcer of r. heel, anemia, Hx of non-displaced hip fracture, permanent AFib (on Coumadin), CAD, HLD presenting today w/ concerns for a non- healing r. 2nd toe lesion/pressure ulcer. Recent chart Hx confirms multiple courses of antibiotics including Ciprofloxacin, Keflex, and doxycycline after the lesion was first noticed and treatment began on March 29, 2025. He was seen earlier this morning at [facility] and referred here after inspection of the wound noted exposed bone. Some debridement was performed in the office today. Patient is a poor historian and is unable to state whether there has been any decreased pain, swelling over the last month with treatment or any improvement in his capacity to ambulate. Patient uncertain whether he is currently able to ambulate even with an assistive device when at [place]. Patient denies any CP or palpitations, AP, suprapubic pain or dysuria. Patient does endorse some chest congestion, dyspnea, and increased phlegm production (and difficulty clearing it from his throat). He also endorses some mild calf pain bilaterally, some mild pain over the medial malleolus of his r. ankle, but denies any pain of his 2nd r. toe or any of the other toes of his r. foot (or left foot). Admission Exam Per Admitting Provider WD/WN, vitals as above Respiratory: normal respiratory effort, lungs clear to auscultation normal respiratory effort and + cough intermittent hypoxia when sleeping Cardiovascular: Rate/Rhythm: + bradycardic and + irregularly irregular Vessels: + posterior tibial pulses abnormal and + dorsalis pedis pulses abnormal Extremities: + calf tenderness (mild bilaterally) mild swelling of r. ankle of medial malleolus Gastrointestinal (Abdomen): normal bowel sounds, soft, nontender, no hepatosplenomegaly Skin: + wound (2 wounds of dorsal aspect r. 2n d toe, bone exposed) Neurologic: Motor/Sensory: + sensory deficit (decreased light touch and pain sensation of both feet); normal movement (+5/5 dorsiflexion and plantar flexion of feet) Psychiatric: Orientation: alert, oriented to person, oriented to place and cooperative; + not oriented to time Principal Diagnosis Osteomyelitis Discharge Exam GA: well groomed, well nourished in no apparent distress. Appears tired. AAO to person. HEENT: head normocephalic, atraumatic. EOMI RESP: vesicular breath sounds b/l. No wheezes, rhonchi, or rales CARDIOVASCULAR: S1 and S2 heard. No murmurs, rubs, or gallops. GI: no tenderness or masses felt to palpation MSK: no gross abnormalities or focal deficits. Right foot in dressing. SKIN: warm, dry, no edema. PSYCH: appropriate mood and affect NEURO: no focal deficits. speech delayed Discharge Data Allergies Allergy/AdvReac Type Severity Reaction Status Date / Time Sulfa (Sulfonamide AdvReac Intermediate Unknown Verified 05/06/25 13:22 Antibiotics) Consultations 05/11/25 12:56 ED Decision to Admit Stat 05/11/25 18:27 Consult Vascular Surgery Routine 05/12/25 07:37 Consult Cardiology Routine Procedures Performed Operation Date: 05/13/25 09:25 Actual Procedures p Right Second Toe Amputation(Right) - Jony Saavedra DPM Ordered Studies 05/11/25 14:54 US arterial duplex LE RT Stat 05/12/25 09:25 US ankle/brachial index ltd Routine Hospital Course (1) Peripheral arterial disease: (2) Osteomyelitis of second toe of right foot: (3) Stage IV pressure ulcer: (4) Anticoagulant long-term use: Plan #Stage IV Pressure ulcer(s) of 2nd r. toe/Osteomyelitis #s/p Right Second Toe Amputation - bone exposed with both dorsal lesions of 2nd r. toe, pt w/out pain, decreased sensation - both lesions debrided in outside office and wound Cx collected and pending - Foot X-ray: osteomyelitis of 2nd r. phalanx - continue Keflex 500mg QID for a total of 14 days. Should be for 13 days after discharge. - will follow cultures, may need to switch antibiotic to cover more broad spectrum #Hypoxia -wean oxygen requirements #risk of aspiration -would benefit from continued speech therapy evaluation for aspiration risk and diet recommendations #Bradycardia -likely secondary to suspected added metoprolol dose upon admission -asx and stable #Long-term potassium supplementation (even while on spironolactone) - stable Chronic conditions-continue home medications as prescribed #AFib - continue warfarin - continue metoprolol #HFrEF - spironolactone #Depression - continue sertraline #Dementia -continue memantine Total Time Total Time Spent Total Time Spent (In Minutes): less than 30 Discharge Plan Discharge Items Patient Disposition: Transfer Nursing Home Fac Reason For Visit: OSTEOMYELITIS Discharge Diagnosis: Osteomyelitis Condition on Discharge: Serious Activity: Resume your previous activity Non-emergency contact: Primary Care Provider Call non-emergency contact if: your symptoms worsen, your pain is worsening and you have a fever Follow-up/Referrals: Mauro Mejia [Primary Care Provider] - Diet: Regular Addtl Attending Provider Instructions: #Stage IV Pressure ulcer(s) of 2nd r. toe/Osteomyelitis #s/p Right Second Toe Amputation - bone exposed with both dorsal lesions of 2nd r. toe, pt w/out pain, decreased sensation - both lesions debrided in outside office and wound Cx collected and pending - Foot X-ray: osteomyelitis of 2nd r. phalanx - continue Keflex 500mg QID for a total of 14 days. Should be for 13 days after discharge. - will follow cultures, may need to switch antibiotic to cover more broad spectrum #Hypoxia -wean oxygen requirements #risk of aspiration -would benefit from continued speech therapy evaluation for aspiration risk and diet recommendations #Bradycardia -likely secondary to suspected added metoprolol dose upon admission -asx and stable #Long-term potassium supplementation (even while on spironolactone) - stable Chronic conditions-continue home medications as prescribed #AFib - continue warfarin - continue metoprolol #HFrEF - spironolactone #Depression - continue sertraline #Dementia -continue memantine Pending Studies at Discharge: No Stand-Alone Forms: My [facility] Skilled Items Patient informed of condition?: Yes DNR: Yes Discharge Level of Care: Skilled Communicable Disease: No Discharge Prognosis: Improving Lines: None Urinary Catheter: No Medications and DC Order Prescriptions: New cephalexin 500 mg capsule 500 mg PO QID 13 Days Qty: 52 0RF Continued metolazone 5 mg tablet 5 mg PO 3XWK Rx Instructions: 5 mg orally Mon, Wed, Fri; vitamin B complex Tablet 1 tab PO DAILY acetaminophen 500 mg Tablet 500 mg PO Q4 PRN (Reason: Pain) albuterol sulfate 2.5 mg /3 mL (0.083 %) solution for nebulization 2.5 mg inhalation Q6H PRN (Reason: Wheezing) Rx Instructions: 3 ml multivitamin Tablet 1 tab PO DAILY docusate sodium [Colace] 100 mg Capsule 100 mg PO BID metoprolol succinate 25 mg tablet extended release 24 hr 25 mg PO DAILY polyethylene glycol 3350 [Miralax] 17 gram/dose Powder 17 g PO DAILY fluticasone propionate 50 mcg/actuation [place],Suspension 50 mcg INTRANASAL DAILY Rx Instructions: 2 spray in both nostrils one time a day for allergies rosuvastatin 20 mg Tablet 20 mg PO DAILY gabapentin 100 mg Tablet 200 mg PO BID Rx Instructions: give 200mg two times a day for shingles pain 200mg BID spironolactone 25 mg Tablet 25 mg PO QAM Qty: 30 0RF torsemide 40 mg Tablet 60 mg PO DAILY Qty: 30 0RF warfarin 5 mg tablet 5 mg PO 3XWK Rx Instructions: Mon/Sat/Fri amoxicillin 500 mg Capsule 2,000 mg PO DIRECTED PRN (Reason: Dental Procedures) Rx Instructions: Take 1 hour prior to dental procedures sertraline 100 mg tablet 100 mg PO DAILY warfarin 2.5 mg tablet 2.5 mg PO 4XWK Rx Instructions: //Sat/Sun famotidine 20 mg tablet 20 mg PO DAILY nystatin 100,000 unit/gram powder 1 applic TOPICAL DIRECTED Rx Instructions: Every shift ferrous sulfate 325 mg (65 mg iron) Tablet,Delayed Release (Dr/Ec) 325 mg PO BID memantine 5 mg tablet 5 mg PO BID rltbawhfpeqavfzr-agawlsvgs-jmm 5-5-30 mg-%-% [place],Non-Aerosol 2 spray MUCOUS MEMBRANE Q4H PRN (Reason: Sore Throat) CeraVe PM Lotion,Extended Release 1 applic TOPICAL Q12H PRN (Reason: Dry Skin) guaifenesin [Mucinex] 600 mg Tablet Extended Release 12hr 600 mg PO Q12H PRN (Reason: Cough/Congestion) potassium chloride 20 mEq tablet,ER particles/crystals 20 meq PO BID Discharge Orders: Discharge Order (Routine); Ordered 05/14/25 Ordered By: Yfn Dean Admission Data Admit Date/Time: 05/11/25 14:41 Attending Provider: Aaron Johnson Admit Provider: Yfn Garza Primary Care Provider: [place] [facility] Mauro Bhatia Other Providers: Angela Toussaint; Iftikhar Heller; Yung Mejia Other Interventions: Discharge Summary Assessment (RN) Last Done: 05/14/25 14:50 Supervising Physician Co-Signing Physician Notes I personally examined the patient and verified all nicholas points of history and exam, discussed case, and agree with decision making with Dr Dean no new issues or problems. Stable for return to SNF today. Communicated current status and plan of care with SNF physician.. Vitals noted, Resting comfortably and in no distress. HEENT normocephalic atraumatic mucous membranes moist. Breathing unlabored on 3 L of oxygen. No accessory muscle use good effort. Otherwise as above. osteomyelitis of the foot with longstanding open ulcerationcontinue antibiotic coverage. await surgical cultures. Discussed with podiatry regarding duration of antibiotics given that they appear to have removed the infected bone, simplifying the long-term situation greatlyThey recommend 14 days of antibioticsgiven that There is nothing growing on culture, his most recent cultures have been pansensitive bacteria, he was not severe sepsis/septic shock, we will discharge on cephalexin. In discussion with SNF physician, right now I will follow the surgical cultures and communicate if it appears a change of antibiotic coverage is warranted, and that he will follow the patient's progress and adjust regimen if needed clinically. CAD/chronic HFrEF aortic valve replacement with mechanical valveall appears to be compensated, follow INRWas never needed to be bridged. Home Coumadin. dementia with what appears to be a fairly significant functional impairmentapp ears most likely around baseline mentation. Continue to follow, No acute issues Dysphagia/aspiration. No respiratory distress, and given that the majority of aspiration events do not end up with a pneumonia, no specific treatment (although even if he did develop an aspiration pneumonia the cefepime he is currently on for his foot would more than suffice). in discussion with SNF physician, his aspiration difficulties are well-known and being managed as best as possible at the facility. Current oxygen requirement does appear to be hypoxia related to aspirationbut probably nothing worse than pneumonitis. Resident Activity Tracking Resident Involvement: Resident Care Provided Care Provided: Adult Hospital Medicine
--- NOTE | 2025-05-14 11:01 | Operative Report ---
DOUGLAS Post Operative Report Pre & Post Diagnosis Operation Date: 05/13/25 09:25 Pre-Op Diagnosis: Peripheral arterial disease; Osteomyelitis of second toe of right foot; Cellulitis of right foot Post-Op Diagnosis: Peripheral arterial disease; Osteomyelitis of second toe of right foot; Cellulitis of right foot I identified the patient and participated in the time-out.: Yes Procedure Operation Date: 05/13/25 09:25 Actual Procedures p Right Second Toe Amputation(Right) - Jony Saavedra DPM Surgeon Jony Saavedra DPM Bariatric Coordinator none Estimated Blood Loss 5 Findings Consistent with Post-Op Diagnosis Specimens 1. Proximal margin proximal phalanx right second toe 2. Right second toe for gross pathology 3. Microbiology: Bone for culture proximal phalanx right second toe Drains None Complications None Description of Procedure Patient is brought in the operating room placed on the operating table in supine position. Timeout is held confirming correct patient, side, site, procedure with all necessary parties confirming. Following IV sedation local anesthesia is obtained about patient's right second ray in a modified Nesbitt block fashion utilizing a total of 10 cc of one-to-one mixture 1% lidocaine plain and 0.5% Marcaine plain in a modified Nesbitt block fashion. Attention was directed to the right second digit which is noted to be erythematous with ulceration to the dorsal aspect of the toe with exposed proximal phalanx and proximal interphalangeal joint. A teardrop shaped incision is planned with a Skin Skribe at the base of the toe attempting to maintain adequate soft tissue for primary closure. 15 blade is utilized to create an incision which is carried deep to the level of bone. Second digit is disarticulated at the level of the metatarsophalangeal joint and using a bone cutting toe proximal margin is cut from the proximal phalanx placed in a blue top vessel to be sent for pathologic analysis. The distal aspect of the proximal phalanx is sent for culture and the remainder of the toe was sent for gross pathologic analysis. Surgical wound is flushed with copious amounts of normal sterile saline. There is noted bleeding from the level of cutaneous tissue with minimal bleeding noted in the subcutaneous tissue at the amputation site. Overall I believe bleeding at the surgical site should be adequate for healing however is not predictive of overall healing potential. Tendinous structures within the surgical wound are pulled distally cut and allowed to retract into proximal soft tissues to minimize avascular tissue within the wound bed. Surgical wound is evaluated and noted to be free of any necrotic tissue. Wound is again flushed copious amounts of normal sterile saline. Deep soft tissue structures were reapproximated with a 3-0 Vicryl in simple interrupted fashion. Wound edges were reapproximated and closed with a 4-0 nylon in simple interrupted fashion. Foot is cleansed with normal sterile saline dried and dressed with Adaptic nonadherent gauze 4 x 4 fluff gauze ABD pad to the dorsum of the foot to protect soft tissue structures clean and lightly applied Coban to hold dressings in place. Patient tolerated procedure and anesthesia well. He was transferred to recovery room with vital signs stable and vascular status intact to the remaining digits of the operative foot. Following a brief period about postoperative monitoring recovery room patient will be transferred back to his bed on the medical floor for continued antibiotic therapy and medical management. Patient to remain nonweightbearing to the surgical foot until further notice. Will reevaluate wound at first dressing change and adjust weightbearing status at that time. I attest to the content of the Intraoperative Record and any orders documented therein. Any exceptions are noted below.
[2025-05-14 11:41] VITALS: O2SAT 100
--- NOTE | 2025-05-14 13:02 | Pharmacy Report ---
Pharmacy PK ABX Note - Date of Service May 14, 2025 - Assessment and Plan Assessment 05/14: POD 1. SCr worsening, although seems to go up and down 1.0 - 1.2 - 1.0 - 1.36 mg/dL. Level obtained today with supratherapeutic AUC. Will slightly reduce dose and recheck level in 3 days. May need to check a level sooner than that, however, depending on renal function trend. 05/13: Reviewed vancomycin level, predicting therapeutic AUC/JEFF, continue current regimen. POD #0 right second toe amputation. Continue antibiotics for now pending pathology. 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 Amputation planned 05/13. Recent history of ~month long therapy with various antibiotics including ciprofloxacin, cephalexin, and doxycycline * Pertinent microbiologic data includes: hx Pseudomonas (R ankle, abdomen), Afib on warfarin, PAD, dementia and poor historian, resident of the [facility] * Microbiology * 05/11 Debridement culture obtained by wound clinic prior to arrival * 05/11 Nasal MRSA swab negative * 05/11 blood cultures (ordered after ceftriaxone, cefepime, and vancomycin administered) Plan Vancomycin * Decrease vancomycin from 1250 mg to 1000 mg IV every 24 hours * Regimen is predicted to achieve target AUC/JEFF of 400-600 mg/L.hr * Random level w AM labs 05/17, or sooner depending on renal function trend Pharmacy will continue to follow and will adjust dose/frequency as necessary. Thank you. Pharmacy has transitioned to AUC monitoring for vancomycin. AUC/JEFF is the preferred PK/PD target and is associated with decreased risk of nephrotoxicity compared to traditional trough targets.
--- NOTE | 2025-05-14 13:28 | Podiatry Progress Note ---
Date of Service May 14, 2025 Assessment & Plan (1) Peripheral arterial disease: (2) Osteomyelitis of second toe of right foot: (3) Cellulitis of right foot: (4) Abnormal ankle brachial index: (5) Amputation of toe of right foot: Plan Postop day 1 status post right second digit amputation. - Proximal margin pathology 05/13/2025: Pending - Bone culture right second toe 05/13/2025: Pending - Order placed for surgical shoe for right foot. Patient to wear surgical shoe at all times while weightbearing to the right foot for transfer. Okay for discharge from podiatry standpoint following antibiotic adjustment based on intraoperative cultures. Postdischarge dressing to be changed every other day with Xeroform, gauze, roll gauze and tape. Continue postop shoe to the right foot for transfers. Follow-up in podiatry clinic within 2 weeks of discharge for suture removal. Admission and Anticipated Discharge Date Admission Date: May 11, 2025 Subjective Patient seen resting comfortably in hospital bed. Denies pain to the right foot. Surgical dressing remains clean dry and intact without strikethrough. Review of Systems Review of Systems: Denies nausea, vomiting, fever, chills, shortness of breath, chest pain. Denies pain in the right foot. Physical Exam Physical Exam: Objective: Const: Appears well developed and well nourished. No signs of acute distress present. CV: Extremities: Pedal pulses nonpalpable bilateral Skin: Open wound to the dorsal aspect of the right second toe with exposed bone and joint surrounding cellulitis Neuro: Sensation intact to light touch in all areas of the foot and ankle. Focused lower extremity musculoskeletal exam: Leg: No pain with compression of the calf muscle. Ankles: Normal to inspection and palpation. No swelling bilaterally. No tenderness bilaterally. Feet: Thin atrophic skin to the bilateral foot with loss of hair growth. Postop day 1 status post right second digit amputation. Wound edges remain well-approximated with all sutures intact. No signs of dehiscence. Minimal sanguinous drainage to surgical dressing. Results & Data Results & Data Vital Signs (Past 12 Hours) Vital Signs Temp Pulse Pulse Resp BP BP Pulse Ox 05/14/25 11:40 36.5 C 54 L 16 127/74 100 05/14/25 11:10 05/14/25 08:17 36.5 C 55 L 16 138/69 98 09/26/25 06:58 54 L 05/14/25 03:46 36.6 C 49 L 16 104/62 96 O2 Del Method O2 Flow Rate 05/14/25 11:40 Nasal Cannula 3 05/14/25 11:10 Nasal Cannula 2 05/14/25 08:17 Nasal Cannula 3 05/14/25 06:58 05/14/25 03:46 Nasal Cannula 2 Coding Level of Care Code 11033 SUB INP/OBS CARE 2/35MIN Diagnoses Peripheral arterial disease I73.9 Osteomyelitis of second toe of right foot M86.9 Cellulitis of right foot L03.115 Abnormal ankle brachial index R68.89 Amputation of toe of right foot S98.131A
[2025-05-14 14:52] VITALS: BP 104/62; PULSE 55
--- NOTE | 2025-05-14 17:01 | Billing Data ---
Date of Service May 14, 2025 Coding Level of Care Code 52542 IN/OBS DISCH 30 MIN/LESS
[2025-05-15] MEDS ORDERED: VANCOMYCIN HCL / NSS 1,000 MG/270 ML BAG IV SCH (16:00)
--- NOTE | 2025-05-17 06:13 | Electrocardiogram Report ---
Test Reason : Blood Pressure : */* mmHG Vent. Rate : 43 BPM Atrial Rate : * BPM P-R Int : * ms QRS Dur : 178 ms QT Int : 512 ms P-R-T Axes : * -66 121 degrees QTcB Int : 432 ms Atrial fibrillation with slow ventricular response Left axis deviation Left bundle branch block Abnormal ECG When compared with ECG of 10-Feb-2023 18:02, Vent. rate has decreased by 40 bpm Confirmed by Guillermo Leone ([id number]) on 05/17/2025 6:13:25 AM Referred By: REFERRED SELF Confirmed By: Guillermo Leone
== END 2025-05-14 14:52 | DRG 503 ==
LOC: ED 11:46 → 3N 14:41 → SUATTDRO 14:41 → 3N 17:06 → 2N 22:30
DX: I71.21 Aneurysm of the ascending aorta, without rupture; F03.90 Unspecified dementia, unspecified severity, without behavioral disturbance, psychotic disturbance, mood disturbance, and anxiety; I49.5 Sick sinus syndrome; Z87.891 Personal history of nicotine dependence; M86.171 Other acute osteomyelitis, right ankle and foot; L03.115 Cellulitis of right lower limb; Z95.2 Presence of prosthetic heart valve; B02.9 Zoster without complications; L89.894 Pressure ulcer of other site, stage 4; R00.1 Bradycardia, unspecified; Z66 Do not resuscitate; I70.291 Other atherosclerosis of native arteries of extremities, right leg; I50.22 Chronic systolic (congestive) heart failure; I11.0 Hypertensive heart disease with heart failure; Z95.1 Presence of aortocoronary bypass graft; Z79.01 Long term (current) use of anticoagulants; I25.10 Atherosclerotic heart disease of native coronary artery without angina pectoris; R73.9 Hyperglycemia, unspecified; I44.7 Left bundle-branch block, unspecified; I48.21 Permanent atrial fibrillation